=== PATIENT | female | born 1995 | race Caucasian/White ===

== ENCOUNTER → 2023-09-21 | Outpatient (CLI) | payer OTHER, SELFPAY ==
[2023-09-21 15:33] LABS: Vitamin B12 775 pg/mL (211-911)
[2023-09-26 14:10] LABS: VITAMIN B6 39.4 ug/L (3.4-65.2); Vitamin B1, Thiamine 130.2 nmol/L (66.5-200.0)
== END | disposition home or self-care (01) ==
PROVIDERS: PCP Nurse Practitioner Family; Referring Provider Nurse Practitioner Family; Visit Provider Nurse Practitioner Family
DX: E61.7 Deficiency of multiple nutrient elements (principal); R51.9 Headache, unspecified; G43.009 Migraine without aura, not intractable, without status migrainosus; R53.83 Other fatigue; E53.8 Deficiency of other specified B group vitamins
CPT/HCPCS: 36415; 82607; 82746; 84207; 84425

== ENCOUNTER 2025-01-18 17:37 | Outpatient (CLI) | payer OTHER, SELFPAY ==
--- OUTSIDE RECORDS SUMMARY | 2025-01-18 18:08 | XMS RPT_ITS | CCD ---
Author Organization [facility] Inform ion Partnership [facility] Care Team Providers Care Vibrator Equipment Tester Name Role Phone Migdalia Calderon LPN Unavailable Unavailable Migdalia Calderon LPN Unavailable Unavailable Angelique Walden NP Unavailable SYSTEM, PROVIDER NOT IN Primary Care UnavailSALOME Nayak Attending Unavail able [facility] Provider [place] [facility] [place] Primary Care Physician [facility] Primary [facility] Provider [facility] Provider LUKAS DARLING Attending Unavailable [facility] Primary Care Unavailable PRINCE RAYA Attending Unavailable [place] [facility] Unavail able VERN URBAN MD Attending Unavailable [facility] [place] [employer] [place] Attending Unavail able [facility] [facility] Unavail able [facility] Provider Margarita INSIDE SALES ENGINEER, Evie Hwang Referring Unavailabl e Margarita INSIDE SALES ENGINEER, Evie Hwang Attending Unavailabl e Margarita INSIDE SALES ENGINEER, Evie Hwang Primary Care Unavailabl e [place] [facility] [employer], [facility] Primary Care Provider CAMELIA HERRERA Attending Unavailable [facility] Unavailable LAURIE SERRA Referring Unavailable [facility] Care Unavailable LAURIE SERRA Attending Unavailable CAMELIA HERRERA Attending Unavailable [facility] Care Unavailable LAURIE SERRA Referring Unavailable LAURIE SERRA Attending Unavailable [facility] Primary Care Unavailable [facility] Primary Care Unavailable PLOTLARA, HODA Attending Unavailable RAJGURU, LAURIE J Attending Unavailable RAJGURU, LAURIE J Referring [facility] Care Unavailable [place] Primary Care Unavailable PLOTTS, HODA Attending Unavailable [facility] Primary Care Unavailable JODY, YASMEEN Referring Unavailable [place] Primary Care Unavailable JODY, YASMEEN Referring Unavailable PLOTTS, HODA Attending Unavailable [facility] Primary Care Unavailable [place] Primary Care Unavailable JODY, YASMEEN Attending Unavailable [place] Primary Care Unavailable JODY, YASMEEN Referring Unavailable [place] Primary Care Unavailable PLOTLARA, HODA Attending Unavailable CAMELIA HERRERA Attending Unavailable [place] [place] Primary Care Unavailable [place] Primary Care Unavailable CAMELIA HERRERA Attending Unavailable [place] Primary Care Unavailable CAMELIA HERRERA Attending Unavailable JODY, YASMEEN Referring Unavailable [place] Primary Care Unavailable NAOMI, HODA Attending Unavailable RAJGURU, LAURIE J Referring Unavailable RAJGURU, LAURIE J Attending Unavailable [facility] Primary Care Unavailable [place] Primary Care Unavailable PLOTLARA, HODA Attending Unavailable BRENNAN HEAD Attending Unavailable [facility] Primary Care Unavailable HAURY, BRENNAN Referring Unavailable [place] Primary Care Unavailable [place] Primary Care Unavailable HAURY, BRENNAN Referring Unavailable TOÑA BLANKENSHIP Attending Unavailable RAJGURU, LAURIE J Referring Unavailable [facility] Primary Care Unavailable RAJGURU, LAURIE J Attending Unavailable [facility] Primary Care Unavailable BRENNAN HEAD Attending Unavailable [facility] Primary Care Unavailable JODY, YASMEEN Referring Unavailable ROBYN VAZQUEZ DO Attending Unavailable [facility] Primary Care Unavailable Allergies Allergy Classification Reported Allergen(s) Allergy Type Date of Onset Reaction(s) Facility (7 sources) amoxicillin; Translations: [amoxicillin] drug allergy 09-27-19 17 rash [facility] Work Phone: (3 sources) morphine drug allergy 09-27-19 [facility] Work Phone: (3 sources) sulfamethoxazole / trimethoprim drug allergy 09-27-19 17 [facility] Work Phone: (20 sources) Morphine; Translations: [morphine] Drug Allergy 05-02-19 23 GI Upset, Nausea (finding) [facility] (20 sources) Erythromycin; Translations: [erythromycin] Drug Allergy 05-17-19 16 [facility] (20 sources) busPIRone; Translations: [BUSPIRONE] Drug Allergy 01-30-20 23 Mental Status Change, Mental distress (finding) [facility] (20 sources) Azithromycin; Translations: [AZITHROMYCIN] Drug Allergy 10-30-19 24 Rash, Hives, GI Upset [facility] (20 sources) cefTRIAXone; Translations: [CEFTRIAXONE] Drug Allergy 01-09-20 15 Other: See Comments [facility] (20 sources) Sulfamethoxazole / Trimethoprim; Translations: [SULFAMETHOXAZOLE-T RIMETHOPRIM] Drug Allergy 09-27-19 17 Rash [facility] (1 source) ERYTHROMYCIN BASE; Translations: [ERYTHROMYCIN BASE] Propensity to adverse reactions to drug (disorder) 05-17-19 16 [facility] [place] [facility] Medications Current Medications Medication Drug Class(es) Dates Sig (Normalized) Sig (Original) ALPRAZolam 1 mg oral tablet (20 sources) Benzodiazepine Start: 06-09-2022 End: 11-20-2022 ALPRAZolam 1 mg oral tablet PRN as needed for anxiety, 0 Refill(s), 69.7 Start Date: 06/09/22 Status: Ordered Medication Dispense Status: Completed Total Allowed Fills: 1 Fills Dispensed: 0 Start: 07-31-2011 End: 05-26-2022 ALPRAZolam (XANAX) 1 mg tabl et End: 05-26-2022 ALPRAZolam (XANAX) 0.5 mg ta blet Take by mouth. 0 05/26/2022 Discontinued (Course of therapy completed) XANAX 0.5 MG TAB S prn ALPRAZOLAM [id number] Migdalia Calderon LPN Comment on above: Take by mouth. Take by mouth as dir ected. aspirin 81 mg delayed release oral tablet (16 sources) Platelet Aggregation Inhibitor, Nonsteroidal Anti-inflammatory Drug Start: 07-18-2024 take 1 tablet by mouth once daily aspirin, enteric coated (ECOTRIN LOW STRENGTH) 81 mg EC tablet Indications: with uncertain dates in first trimester ([facility]) , care, first in first trimester (HCC) Take 1 tablet by mouth once daily. 90 tablet 3 07/18/2024 Active B Complex-C (b complex-vitamin c) tablet (4 sources) take 1 tablet by mouth once daily B Complex-C (b complex-vitamin c) tablet Take 1 tablet by mouth daily. 0 Active busPIRone (19 sources) Start: 11-19-2022 busPIRone (Buspar) tablet 15 mg Start: 08-23-2022 End: 11-21-2022 take 1 tablet by mouth twice daily busPIRone (BUSPAR) 15 mg tablet Take 1 tablet by mouth twice daily. 180 tablet 1 08/23/2022 11/21/2022 Discontinued (Side Effects) Start: 05-02-2020 busPIRone 10 m g oral tablet Dose : 10 mg = 1 tab(s), Oral, BID, # 270 tab(s), 3 Refill(s), Pharmacy: [facility], 168.5, cm, 10/06/20 7:31:00 EDT, Height, kg, 10/06/20 7:31:00 EDT, Dosing Weight Start Date: 10/06/20 Status: Ordered Comment on above: Take 1 tablet by bar twice daily. cholecalciferol, vitamin D3, (VITAMIN D3 ORAL) (20 sources) Start: 04-02-2022 cholecalciferol, vitamin D3, (VITAMIN D3 ORAL) 04/02/2022 Active Start: 04-02-2022 cholecalcifero l, vitamin D3, (VITAMIN D3 ORAL) escitalopram 20 mg oral tablet (20 sources) Serotonin Reuptake Inhibitor Start: 09-23-2024 End: 01-26-2025 take 1.5 tablets by mouth once daily escitalopram oxalate (LEXAPRO) 20 mg tablet Take 1.5 tablets by mouth once daily. 135 tablet 10/28/2024 01/26/2025 Active Start: 01-25-2024 End: 09-21-2024 take 1.5 tablets by mouth once daily escitalopram oxalate (LEXAPRO) 20 mg tablet Take 1.5 tablets by mouth once daily. 135 tablet 06/23/2024 09/21/2024 Active Start: 01-02-2023 End: 01-25-2024 take 2 tablets by mouth once daily escitalopram oxalate (LEXAPRO) 20 mg tablet Take 2 tablets by mouth once daily. 180 tablet 10/18/2023 01/25/2024 Discontinued Start: 12-15-2022 End: 02-13-2023 take 1.5 tablets by mouth once daily escitalopram oxalate (LEXAPRO) 20 mg tablet Take 1.5 tablets by mouth once daily. 45 tablet 1 12/15/2022 01/02/2023 Discontinued Start: 08-23-2022 End: 12-15-2022 take 1 tablet by mouth once daily escitalopram oxalate (LEXAPRO) 20 mg tablet Take 1 tablet by mouth once daily. 90 tablet 1 08/23/2022 12/15/2022 Discontinued Start: 06-19-2022 escitalopram 5 mg oral tablet Dose : 5 mg = 1 tab(s), Oral, qDay, # 30 tab(s), 0 Refill(s) Start Date: 06/19/22 Status: Ordered Start: 06-16-2022 End: 09-08-2022 take 1.5 tablets by mouth once daily escitalopram oxalate (LEXAPRO) 10 mg tablet Take 1.5 tablets by mouth once daily. 45 tablet 0 08/09/2022 09/08/2022 Active Start: 01-30-2021 End: 11-20-2022 escitalopram (Lexapro) table t 10 mg Comment on above: Take 10 mg by mouth once daily. Take 1.5 tablets by mouth once daily. Take 1 tablet by bar once daily. Take 2 tablets by mo [facility] once daily. hydrOXYzine hydrochloride 25 mg oral tablet (20 sources) Antihistamine Start: 10-18-19 End: 11-17-19 take 1 tablet by mouth every eight hours as needed hydrOXYzine HCl (ATARAX) 25 mg tablet Take 1 tablet by mouth three times a day as needed for anxiety (and sleep difficulties). 90 tablet 0 10/18/2023 11/17/2023 Active Start: 04-18-2023 End: 07-17-2023 take 1 tablet by mouth every twenty-four hours as needed hydrOXYzine HCl (ATARAX) 50 mg tablet Take 1 tablet by mouth at bedtime as needed for anxiety (and sleep difficulties). 90 tablet 0 04/18/2023 07/17/2023 Active Start: 02-05-2023 End: 03-07-2023 take 1 tablet by mouth every twenty-four hours as needed hydrOXYzine HCl (ATARAX) 50 mg tablet Take 1 tablet by mouth at bedtime as needed for anxiety (and sleep difficulties). 30 tablet 0 02/05/2023 03/07/2023 Active Start: 11-19-2022 End: 11-30-2022 take 1 capsule by mouth every six hours as needed hydrOXYzine pamoate (VISTARIL) 50 mg capsule Take 50 mg by mouth every 6 hours as needed. 0 11/20/2022 11/30/2022 Active Comment on above: Take 50 mg by mouth every 6 hours as needed. Take 1 tablet by bar th at bedtime as needed for anxiety (and sleep difficulties). Inositol (20 sources) Start: 04-29-2023 INOSITOL ORAL 04/29/2023 Active Start: 04-29-2023 INOSITOL ORAL Magnesium (4 sources) magnesium 500 MG tablet Take by mouth. 0 Active MAGNESIUM GLYCINATE, BULK, M ISC (20 sources) Start: 03-04-2023 MAGNESIUM GLYC INATE, BULK, MISC 03/04/2023 Active Start: 03-04-2023 MAGNESIUM GLYC INATE, BULK, MISC metroNIDAZOLE 500 mg oral tablet (1 source) Nitroimidazole Antimicrobial Start: 02-05-2024 End: 02-12-2024 take 1 tablet by mouth twice daily metroNIDAZOLE (FLAGYL) 500 mg tablet Take 1 tablet by mouth two times a day for 7 days. 14 tablet 02/05/2024 02/12/2024 Active nitrofurantoin, macrocrystals 25 mg / nitrofurantoin, monohydrate 75 mg oral capsule (3 sources) Nitrofuran Antibacterial Start: 05-07-2024 End: 05-14-2024 take 1 capsule by mouth twice daily nitrofurantoin monohydrate and macrocrystal (MACROBID) 100 mg capsule Indications: Dysuria Take 1 capsule by mouth two times a day for 7 days. 14 capsule 05/07/2024 05/14/2024 Active MV-Min-Fe Fum-FA-DHA ( 1 PO) (4 sources) MV-Min- Fe Fum-FA-DHA ( 1 PO) Take by mouth. 0 Active no115/iron/folic acid ( 19 ORAL) (16 sources) no115/iron/folic acid ( 19 ORAL) Take by mouth once daily. [place] Active Saccharomyces boulardii (20 sources) Start: 07-22-2023 SACCHAROMYCES BOULARDII ORAL 07/22/2023 Active Start: 07-22-2023 SACCHAROMYCES BOULARDII ORAL Completed/Discontinued Medications Medication Drug Class(es) Dates Sig (Normalized) Sig (Original) B-complex with vitamin C (SUPER B COMPLEX + C ORAL) (4 sources) Start: 04-02-2022 End: 10-18-2023 B-complex with vitamin C (SUPER B COMPLEX + C ORAL) Start: 04-02-2022 B-complex with vitamin C (SUPER B COMPLEX + C ORAL) cholecalciferol 0.125 mg oral capsule (20 sources) Vitamin D End: 06-22-2023 Cholecalciferol, Vitamin D3, 125 mcg (5,000 unit) cap Take by mouth as directed. 0 06/22/2023 Discontinued (Course of therapy completed) Cholecalciferol (Vitamin D) 125 MCG (5000 UT) capsule Take by mouth. 0 Active Comment on above: Take by mouth as dir ected. citalopram 20 mg oral tablet (6 sources) Serotonin Reuptake Inhibitor CELEXA 20 MG TABS q d CITALOPRAM HYDROBROMIDE [id number] Angelique Walden INSIDE SALES ENGINEER CELEXA TABS q d CITALOPRAM HYDROBROMIDE TABS [id number] Migdalia Calderon LPN compounded progesterone 100 mg capsule (8 sources) End: 10-08-2024 take 1 capsule under the tongue once daily at bedtime compounded progesterone 100 mg capsule 100 mg daily at bedtime. sublingual 10/08/2024 Discontinued (Course of therapy completed) take 1 capsule under the tongue once daily at bedtime compounded progesterone 100 mg capsule 1 00 mg daily at bedtime. sublingual Active cyclobenzaprine hydrochloride 10 mg oral tablet (20 sources) Muscle Relaxant Start: 05-02-2020 End: 07-18-2024 take 1 tablet by mouth once daily at bedtime cyclobenzaprine (FLEXERIL) 10 mg tablet Take 10 mg by mouth daily at bedtime. 05/02/2020 07/18/2024 Discontinued Comment on above: Take 10 mg by mouth daily at bedtime. docosahexaenoic acid/epa (FISH OIL ORAL) (8 sources) Start: 04-02-2022 End: 01-25-2024 docosahexaenoic acid/epa (FISH OIL ORAL) 04/02/2022 01/25/2024 Discontinued (Discontinued by Patient) Start: 04-02-2022 docosahexaenoi c acid/epa (FISH OIL ORAL) 04/02/2022 Active Start: 04-02-2022 docosahexaenoi c acid/epa (FISH OIL ORAL) Iron (17 sources) Start: 08-24-2022 End: 06-22-2023 take 1 capsule by mouth once daily PNV [id number] 90 mg iron- 1 mg-200 mg cap Indications: Irregular menstrual cycle Take 1 capsule by mouth once daily. 30 capsule 3 08/24/2022 06/22/2023 Discontinued (Course of therapy completed) Start: 08-24-2022 take 1 capsule by mo uth once daily PNV [id number]-dha 90 mg iron- 1 mg-200 mg cap Indications: Irregular menstrual cycle Take 1 capsule by mouth once daily. 30 capsule 3 08/24/2022 Active Comment on above: Take 1 capsule by mo uth once daily. LORazepam 0.5 mg oral tablet (20 sources) Benzodiazepine Start: End: take 1 tablet by mouth twice daily as needed for anxiety LORazepam (ATIVAN) 0.5 mg Indications: Other obsessive-compulsi ve disorders Take 1 tablet by mouth two times a day as needed (severe anxiety and panic attacks) for up to 30 days. 30 tablet 0 06/19/2023 07/19/2023 Start: 04-18-2023 End: 05-18-2023 take 1 tablet by mouth twice daily as needed for anxiety LORazepam (ATIVAN) 0.5 mg Indications: Other obsessive-compulsive disorders Take 1 tablet by mouth two times a day as needed (severe anxiety and panic attacks) for up to 30 days. 30 tablet 0 04/18/2023 05/18/2023 Active Start: 02-05-2023 End: 03-28-2023 take 1 tablet by mouth twice daily as needed for anxiety LORazepam (ATIVAN) 0.5 mg Indications: Other obsessive-compulsive disorders Take 1 tablet by mouth two times a day as needed (severe anxiety and panic attacks) for up to 30 days. 30 tablet 0 02/26/2023 03/28/2023 Active Start: 12-26-2022 End: 01-23-2023 take 1 tablet by mouth twice daily as needed for anxiety LORazepam (ATIVAN) 1 mg tablet Indications: FREDO (generalized anxiety disorder) Take 1 tablet by mouth two times a day as needed for anxiety (for intrusive thoughts) for up to 14 days. 14 tablet 0 01/09/2023 01/23/2023 Active Start: 12-15-2022 End: 12-29-2022 take 1 tablet by mouth at bedtime as needed for anxiety LORazepam (ATIVAN) 1 mg tablet Indications: FREDO (generalized anxiety disorder) Take 1 tablet by mouth at bedtime as needed for anxiety (for intrusive thoughts) for up to 14 days. 14 tablet 0 12/15/2022 12/29/2022 Active Start: 11-19-2022 End: 11-24-2022 LORazepam (Ativan) tablet 1 mg End: 02-05-2023 take 1 tablet by mouth every eight hours as needed LORazepam (ATIVAN) 1 mg tablet Take 1 mg by mouth three times a day as needed. 0 02/05/2023 Discontinued (Course of therapy completed) take 1 tablet by bar th every eight hours as needed for anxiety LORazepam (Ativan) 1 MG tablet Take 1 mg by mouth every 8 hours as needed for anxiety. 1-2 tabs Po q8 prn 0 Active Comment on above: Take 1 tablet by bar th at bedtime as needed for anxiety (for intrusive thoughts) for up to 14 days. Take 1 tablet by bar th twice daily as needed for anxiety (for intrusive thoughts) for up to 14 days. Take 1 tablet by bar th two times a day as needed for anxiety (for intrusive thoughts) for up to 14 days. Take 1 mg by mouth t hree times a day as needed. Take 1 tablet by bar th two times a day as needed (severe anxiety and panic attacks) for up to 30 days. magnesium glycinate 100 mg magnesium capsule (3 sources) End: 06-22-2023 magnesium glycinate 100 mg magnesium capsule Take 200 mg by mouth once daily. 0 06/22/2023 Discontinued (Course of therapy completed) magnesium glycin ate 100 mg magnesium capsule Take 200 mg by mouth once daily. 0 Active Comment on above: Take 200 mg by mouth once daily. [id number]-dyfrk-omega3 (ONE-A-DAY -1) 27 mg iron- 800 mcg-235 mg cap (6 sources) Start: 04-02-2022 End: 11-06-2023 490-avip-gpjgo-omega3 (ONE-A-DAY -1) 27 mg iron- 800 mcg-235 mg cap Start: 04-02-2022 168-i [id number] (ONE-A-DAY -1) 27 mg iron- 800 mcg-235 mg cap vit 03-ihuc-zzmov-dha (PRENATE MINI, FERR ASP GLYCIN,) 18-1-350 mg cap (5 sources) Start: 05-02-2022 take 1 capsule by mouth once daily vit 39-qjjr-kjkbw-dha (PRENATE MINI, FERR ASP GLYCIN,) 18-1-350 mg cap Take 1 capsule by mouth once daily. 30 capsule 11 05/02/2022 Active Comment on above: Take 1 capsule by mo uth once daily. progesterone 100 mg oral capsule (20 sources) Progesterone Start: 02-20-2023 End: 07-15-2024 take 3 capsules by mouth once daily progesterone micronized (PROMETRIUM) 100 mg capsule Take 3 capsules by mouth once daily. Used for mood. Progesterone - Compound 90 capsule 11 03/12/2024 07/15/2024 Discontinued (Discontinued by Patient) Start: 09-21-2022 End: 02-15-2023 take 3 capsules by mouth once daily progesterone micronized (PROMETRIUM) 100 mg capsule Take 3 capsules by mouth once daily. Used for mood. Progesterone - Compound 90 capsule 0 01/15/2023 02/15/2023 Discontinued Start: 06-30-2020 Progesterone P rogesterone, 200 mg, qDay, dissolve under tounge, 0 Refill(s), 73.9 Start Date: 06/30/20 Status: Ordered Comment on above: Take 3 capsules by m outh once daily. Used for mood. Progesterone - Compound propranolol hydrochloride 20 mg oral tablet (13 sources) beta-Adrenergic Stanislaw Start: 04-18-19 End: 06-19-19 take 1 tablet by mouth every eight hours as needed propranolol (INDERAL) 20 mg tablet Take 1 tablet by mouth three times a day as needed (intrusive thoughts and physical symptoms of anxiety). 90 tablet 0 04/18/2023 06/19/2023 Discontinued (Side Effects) Start: 12-26-2022 End: 03-28-2023 take 1 tablet by mouth every eight hours as needed propranolol (INDERAL) 20 mg tablet Take 1 tablet by mouth three times a day as needed (intrusive thoughts and physical symptoms of anxiety). 90 tablet 0 02/05/2023 02/26/2023 Discontinued Comment on above: Take 1 tablet by bar th three times daily as needed (intrusive thoughts and physical symptoms of anxiety). Take 1 tablet by bar th three times a day as needed (intrusive thoughts and physical symptoms of anxiety). vitamin B complex with C-FA-CU-ZN renal vitamins (DIATX ZN) 5-1.5-25 mg tab (17 sources) End: 07-15-2024 vitamin B complex with C-FA-CU-ZN renal vitamins (DIATX ZN) 5-1.5-25 mg tab Take 1 tablet by mouth once daily. 07/15/2024 Discontinued (Discontinued by Patient) vitamin B comple x with C-FA-CU-ZN renal vitamins (DIATX ZN) 5-1.5-25 mg tab Take 1 tablet by mouth once daily. Active vitamin B comple x with C-FA-CU-ZN renal vitamins (DIATX ZN) 5-1.5-25 mg tab Take 1 tablet by mouth once daily. 0 Active Problems Active Problems Problem Classification Problem Date Documented Date Episodic/Chronic Abdominal pain (3 sources) Right lower quadrant pain 06-09-2022 Episodic Adjustment disorders (1 source) Grieving process stage - finding; Translations: [Adjustment disorder with depressed mood] 11-20-2022 Chronic Anxiety disorders (20 sources) Mixed anxiety and depressive disorder; Translations: [Other specified anxiety disorders] Onset: 11-19-2022 Chronic Disorders of teeth and jaw (20 sources) Temporomandibular joint disorder; Translations: [Unspecified temporomandibular joint disorder, unspecified side] Onset: 01-21-2019 01-21-2019 Episodic Comment on above: otherwise active wit hout sig PMH LEFT Headache; including migraine (4 sources) Migraine 05-17-2015 Chronic Heart valve disorders (4 sources) Heart murmur 10-30-2018 Episodic Malaise and fatigue (6 sources) Malaise and fatigue; Translations: [Fatigue] Onset: 09-26-2016 10-08-2016 Episodic Menstrual disorders (12 sources) Disorder of menstruation; Translations: [Irregular periods] Onset: 10-08-2016 10-08-2016 Chronic Mood disorders (20 sources) Severe recurrent major depression without psychotic features; Translations: [Major depressive disorder, recurrent severe without psychotic features] Onset: 01-25-2024 11-20-2022 Chronic Nutritional deficiencies (1 source) Deficiency of multiple nutrient elements; Translations: [Deficiency of multiple nutrient elements] Onset: 10-12-2023 Episodic Other aftercare (5 sources) Long-term current use of drug therapy; Translations: [Other prison (current) drug therapy] 10-18-2023 Episodic Other complications of (1 source) Decreased movements, third trimester, not applicable or unspecified; Translations: [Decreased movements in third trimester, single or unspecified fetus (HCC)] Onset: 01-07-2025 Episodic Other connective tissue disease (1 source) Pelvic floor tension; Translations: [Other specified disorders of muscle] Episodic Other female genital disorders (1 source) Abnormal uterine bleeding; Translations: [Other specified abnormal uterine and vaginal bleeding] Chronic Other female genital disorders (1 source) Pain in female genitalia on intercourse; Translations: [Unspecified dyspareunia] Chronic Other female genital disorders (2 sources) Vaginal discharge; Translations: [Other specified noninflammatory disorders of vagina] 03-28-2024 Episodic Other female genital disorders (1 source) Vaginal odor; Translations: [Other specified noninflammatory disorders of vagina] 03-28-2024 Episodic Other non-traumatic joint disorders (4 sources) Hip pain 05-18-2015 Episodic Comment on above: Patient states fell last night and injured right hip. Other nutritional; endocrine; and metabolic disorders (5 sources) Metabolic syndrome X; Translations: [Metabolic syndrome] 06-19-2023 Chronic Other nutritional; endocrine; and metabolic disorders (1 source) Metabolic syndrome; Translations: [Metabolic syndrome] Onset: 01-25-2024 Chronic Other nutritional; endocrine; and metabolic disorders (3 sources) Overweight 10-30-2018 Episodic Other and delivery including normal (20 sources) with uncertain dates; Translations: [First trimester ] Onset: 07-18-2024 07-18-2024 Episodic Other screening for suspected conditions (not mental disorders or infectious disease) (7 sources) Decreased thyroxine level; Translations: [Other specified abnormal findings of blood chemistry] Onset: 11-26-2024 Episodic Other upper respiratory infections (1 source) Viral upper respiratory tract infection 04-06-2021 Episodic Residual codes; unclassified (4 sources) Reduced libido; Translations: [Decreased libido] Episodic Residual codes; unclassified (1 source) Gestation period, 8 weeks; Translations: [8 weeks gestation of ] 07-18-2024 Episodic Residual codes; unclassified (1 source) Gestation period, 12 weeks; Translations: [12 weeks gestation of ] 08-15-2024 Episodic Residual codes; unclassified (1 source) Gestation period, 16 weeks; Translations: [16 weeks gestation of ] 09-10-2024 Episodic Residual codes; unclassified (2 sources) Gestation period, 20 weeks; Translations: [20 weeks gestation of ] 10-08-2024 Episodic Residual codes; unclassified (1 source) Gestation period, 22 weeks; Translations: [22 weeks gestation of ] 10-22-2024 Episodic Residual codes; unclassified (1 source) Gestation period, 25 weeks; Translations: [25 weeks gestation of ] 11-12-2024 Episodic Residual codes; unclassified (1 source) Gestation period, 27 weeks; Translations: [27 weeks gestation of ] 11-26-2024 Episodic Residual codes; unclassified (1 source) Gestation period, 29 weeks; Translations: [29 weeks gestation of ] 12-10-2024 Episodic Residual codes; unclassified (1 source) 33 weeks gestation of ; Translations: [33 weeks gestation of (HCC)] Onset: 01-07-2025 Episodic Residual codes; unclassified (1 source) 31 weeks gestation of ; Translations: [31 weeks gestation of (HCC)] Onset: 12-24-2024 Episodic Residual codes; unclassified (1 source) 29 weeks gestation of ; Translations: [29 weeks gestation of (HCC)] Onset: 12-10-2024 Episodic Residual codes; unclassified (1 source) 27 weeks gestation of ; Translations: [27 weeks gestation of (HCC)] Onset: 11-26-2024 Episodic Residual codes; unclassified (1 source) 24 weeks gestation of ; Translations: [24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 CNOV Office Visit (OBGYWM) -------- SMITA NGUYEN ([id number]) 1995 F Date Time Provider Department 11/26/24 2:30 PM HODA HAGER During your visit today, we recorded the following information about you: Blood pressure Weight 106/60 84.9 kg Hoda Hager APRN.CNM 11/26/2024 3:15 PM Signed CENTERING S: Smita Nguyen is a 29 year old female who presents at 27 weeks gestation for a routinve visit / centering group. Positive movements. Completed GCT. Denies headache, visual changes, chest pain, shortness of breath, vaginal bleeding, leakage of fluid, or dysuria. Feeling well, no complaints. Leaving for vacation next week in [place]. O: See flow sheet Gen: No apparent distress Abd: Gravid, nontender ASSESSMENT/PLAN: 1. 27 weeks gestation of 2. Supervision of normal first , antepartum 3. Other depression 4. History of depression - Continue Lexapro 20 mg PO Daily - Continue vitamin and ASA - Traveling via plane to [place] next week- wearing compression stockings and increase fluid intake - Follows psych. - mood stable - 1 hour GCT, CBC, and RPR today - Rh positive - TDAP declines - LARC form reviewed and signed. Patient declines - Depression screen negative - Opioid screen negative - plan form discussed and given to patient. Patient desires unmedicated - possible water - PTL precautions and kick counts reviewed - RTO- 2 weeks or sooner if needed ADELFO Yeung Amanda, MA 11/26/2024 2:38 PM Signed SEQUENTIAL SCREENINGS [facility] offers sequential screenings for women who are interested in screenings for chromosomal abnormalities and certain defects during a . The sequential screen combines ultrasound and blood tests to determine the risk of chromosomal abnormalities, including Down's Syndrome (Trisomy 21) and Trisomy 18, as well as open neural tube defects including spina bifida. Ultrasound examination is performed between 11 weeks and 13 weeks gestational age. Blood tests are drawn after the ultrasound and again later in the between 15 and 21 weeks gestational age. Please let your physician know if you are interested in this testing. It will require an appointment with our special effects technician. This is not an ultrasound performed by a physician in our office during a routine visit. SIGNS AND SYMPTOMS OF LABOR 1. Contractions every 10 minutes or more often 2. Clear, pink, or brownish fluid (water) leaking from vagina 3. Feeling that baby is pushing down, pressure 4. Low, dull backache 5. Cramps that feel like a period 6. Cramps with or without diarrhea If you notice any of the above symptoms, contact our office at [phone] and ask to speak with a nurse. After hours, you can call doctors registry at [phone] OR call [facility] at [phone] and ask to have the doctor blown film extrusion operator paged. If you consider this an emergency, dial 6-1-8 or go to your nearest emergency department. NEED HELP? Are you dealing with a violent or abusive relationship? Are you a victim of rape or sexual assult? Call [facility] ([place]) 24 hour Crisis Hotline: 369.849.9186 or 480-669-8249. MANUAL Your Guide to a Healthy manual is now on-line. Visit [facility].or g/HealthyPregnancy Guide to download your free copy Allergies As of Date: 11/26/2024 Noted Allergy Reaction SULFAMETHOXAZOLE-T RIMETHOPRIM 09/26/2016 2 - Rash AZITHROMYCIN 10/30/2023 2 - Rash 4 - Hives 8 - GI Upset BUSPIRONE 01/29/2023 1 - Mental Status Change CEFTRIAXONE 01/08/2015 14 - Other: See Comments ERYTHROMYCIN BASE 05/17/2015 2 - Rash MORPHINE 05/02/2022 8 - GI Upset Date Reviewed: 11/26/2024 Reviewed by: Marce Bello MA - Fully Assessed Reason for Visit: Care [86] Primary Visit Diagnosis:27 weeks gestation of (HCC) [Z3A.27] Other Visit Diagnoses:Supervis ion of normal first , antepartum (HCC) [Z34.00] Other depression [F32.89] History of depression [Z86.59] Prescriptions as of 11/26/2024 - escitalopram oxalate (LEXAPRO) 20 mg tablet Take 1.5 tablets by mouth once daily. - aspirin, enteric coated (ECOTRIN LOW STRENGTH) 81 mg EC tablet Take 1 tablet by mouth once daily. - no115/iron/folic acid ( 19 ORAL) Take by mouth once daily. [place] - SACCHAROMYCES BOULARDII ORAL - INOSITOL ORAL - cholecalciferol, vitamin D3, (VITAMIN D3 ORAL) - MAGNESIUM GLYCINATE, BULK, MISC Problem List As Of Date 11/26/2024 Noted Resolved TMJ (temporomandibular joint syndrome) [M26.609] 9 Supervision of normal first , antepart* 5 History of Lyme disease [Z86.19] 08/15/2024 Depression [F32.A] Other instructions from your clinician: SEQUENTIAL SCREENINGS [facility] off (more content not included)... Normal [facility] GESTATIONAL GLUCOSE SCREEN, 1-HOUR, 50 GRAM, NON-FASTINGon 11-26-2024 Glucose [Mass/Vol] 92 mg/dL Normal 74-134 [facility] Comment on above: Order Comment: Speci stephy Type: BLOOD SPECIMENOrdering Facility: [facility] Address: [address] [place] [address] Result Comment: [facility] Congress of Obstetricians and Gynecologists (Rock/Corey) guidelines state a gestational diabetes mellitus positive screen is made, in women not previously diagnosed with overt diabetes, when the 1 hr plasma glucose level is equal to or above 140 mg/dL. [facility] Showplace Manager and [employer] [employer] recommends a 135 mg/dL cutoff. Performed By: #### G LTGST ####[facility] [id number] [place] [address] [place] Reagin and Treponema pallidu m IgG and IgM [Interp]on 11-26-2024 T. pallidum IgG+IgM IA Ql (S) Non-Reactive Normal Nonreactive [facility] Comment on above: Order Comment: Nicole keyes Type: SWAB Ordering Facility: [facility] Address: [address] [place] [address] Performed By: #### T RVAMP, 04155-5 #### [facility] CLIA [id number] [address] [place], [place] [id number] [place] Reagin+T pallidum IgG+IgM Se rPl-Impon 11-26-2024 Reagin and Treponema pallidum IgG and IgM [Interp] Cannot exclude recent Treponemal infection if specimen collected within 7-10 days after appearance of suspect lesions or 2-3 weeks after an exposure. Clinical correlation is required. Normal [facility] Comment on above: Order Comment: Speci men Type: SWAB Ordering Facility: [facility] Address: [address] [place] [address] Performed By: #### T RVAMP, 33254-0 #### [facility] CLIA [id number] [address] [place] [address] [place] CNPJackeline 11-20-2024 CNPN Telephone (OBGYWM) -------- SMITA NGUYEN ([id number]) 1995 F Date Time Provider Department 11/20/24 CAMELIA HERRERA During your visit today, we recorded the following information about you: Glendy Castaneda LPN 11/20/2024 5:17 PM Signed Breast pump prescription received from [facility]. Order to Mario Alberto Herrera to sign Mora Villarreal RN 11/24/2024 4:25 PM Signed Order signed and faxed. Mora Villarreal RN Allergies As of Date: 11/20/2024 Noted Allergy Reaction SULFAMETHOXAZOLE-T RIMETHOPRIM 09/26/2016 2 - Rash AZITHROMYCIN 10/30/2023 2 - Rash 4 - Hives 8 - GI Upset BUSPIRONE 01/29/2023 1 - Mental Status Change CEFTRIAXONE 01/08/2015 14 - Other: See Comments ERYTHROMYCIN BASE 05/17/2015 2 - Rash MORPHINE 05/02/2022 8 - GI Upset Date Reviewed: 11/12/2024 Reviewed by: Camelia Herrera APRN.CNM - Fully Assessed Reason for Visit: Orders [681] Cmt: Breast pump Prescriptions as of 11/24/2024 - escitalopram oxalate (LEXAPRO) 20 mg tablet Take 1.5 tablets by mouth once daily. - aspirin, enteric coated (ECOTRIN LOW STRENGTH) 81 mg EC tablet Take 1 tablet by mouth once daily. - no115/iron/folic acid ( 19 ORAL) Take by mouth once daily. [place] - SACCHAROMYCES BOULARDII ORAL - INOSITOL ORAL - cholecalciferol, vitamin D3, (VITAMIN D3 ORAL) - MAGNESIUM GLYCINATE, BULK, MISC Problem List As Of Date 11/20/2024 Noted Resolved TMJ (temporomandibular joint syndrome) [M26.609] 9 Supervision of normal first , antepart* History of Lyme disease [Z86.19] 08/15/2024 Depression [F32.A] Encounter Status:Closed by MORA VILLARREAL on 11/24/24 [facility] CNOVon 11-12-2024 CNOV Office Visit (OBGYWM) -------- SMITA NGUYEN ([id number]) 1995 F Date Time Provider Department 11/12/24 2:30 PM CAMELIA HERRERA OBELLE During your visit today, we recorded the following information about you: Blood pressure Weight 128/78 83.5 kg Camelia Herrera APRN.CNM 11/12/2024 4:59 PM Signed ESAU-S: Smita Nguyen is a 29 year old female who presents at 25w3d with ENE:02/22/2025, by Last Menstrual Period for a routine visit. Denies headache, visual changes, chest pain, shortness of breath, vaginal bleeding, leakage of fluid, or dysuria. Feeling well, no complaints. O: See flow sheet Gen: No apparent distress Abd: Gravid, nontender ASSESSMENT/PLAN: 1. Supervision of normal first , antepartum -Continue PNV -Continue ASA 2. Other depression 3. 25 weeks gestation of -1hr GCT, CBC, and RPR next visit -Tdap vaccine next visit PTL precautions reviewed and when to call RTO in 2 week ADELFO Puri Jessica, APRN.CNM 11/12/2024 2:53 PM Signed 50 gram fresh test 1 HOUR GLUCOLA TEST PREPARATION, EXPLANATION AND INSTRUCTIONS The test is performed to detect gestational diabetes mellitus. Some women, when they become , will develop this condition. If left untreated or undetected, diabetes may lead to problems with both your health and your baby's. All OB patients must have the 1 hour Glucola testing between 24 and 28 weeks. Patient is permitted to eat 2 hours prior to Glucola testing. Patient is to arrive at her appointment prepared to drink 50gms of glucose beverage. Blood will be drawn 1 hour after Glucola is consumed. No food, candy, gum, beverages or water may be consumed during the test. No smoking during testing!! Testing is complete after blood is drawn. Allergies As of Date: 11/12/2024 Noted Allergy Reaction SULFAMETHOXAZOLE-T RIMETHOPRIM 09/26/2016 2 - Rash AZITHROMYCIN 10/30/2023 2 - Rash 4 - Hives 8 - GI Upset BUSPIRONE 01/29/2023 1 - Mental Status Change CEFTRIAXONE 01/08/2015 14 - Other: See Comments ERYTHROMYCIN BASE 05/17/2015 2 - Rash MORPHINE 05/02/2022 8 - GI Upset Date Reviewed: 11/12/2024 Reviewed by: Camelia Herrera APRN.CNM - Fully Assessed Reason for Visit: Care [86] Primary Visit Diagnosis:Supervis ion of normal first , antepartum (HCC) [Z34.00] Other Visit Diagnoses:25 weeks gestation of ([facility]) [Z3A.25] Other depression [F32.89] Prescriptions as of 11/12/2024 - escitalopram oxalate (LEXAPRO) 20 mg tablet Take 1.5 tablets by mouth once daily. - aspirin, enteric coated (ECOTRIN LOW STRENGTH) 81 mg EC tablet Take 1 tablet by mouth once daily. - no115/iron/folic acid ( 19 ORAL) Take by mouth once daily. [place] - LEVAR JOSEFRANCOISRAYMONDGabriella ORAL - INOSITOL ORAL - cholecalciferol, vitamin D3, (VITAMIN D3 ORAL) - MAGNESIUM GLYCINATE, BULK, MISC Problem List As Of Date 11/12/2024 Noted Resolved TMJ (temporomandibular joint syndrome) [M26.609] 9 Supervision of normal first , antepart* 5 History of Lyme disease [Z86.19] 08/15/2024 Depression [F32.A] Other instructions from your clinician: 50 gram fresh test 1 HOUR GLUCOLA TEST PREPARATION, EXPLANATION AND INSTRUCTIONS The test is performed to detect gestational diabetes mellitus. Some women, when they become , will develop this condition. If left untreated or undetected, diabetes may lead to problems with both your health and your baby's. All OB patients must have the 1 hour Glucola testing between 24 and 28 weeks. Patient is permitted to eat 2 hours prior to Glucola testing. Patient is to arrive at her appointment prepared to drink 50gms of glucose beverage. Blood will be drawn 1 hour after Glucola is consumed. No food, candy, gum, beverages or water may be consumed during the test. No smoking during testing!! Testing is complete after blood is drawn. Encounter Status:Closed by CAMELIA HERRERA on 11/12/24 [facility] CNOVon 10-28-2024 CNOV Office Visit (PSWSTR) -------- SMITA NGUYEN ([id number]) 1995 F Date Time Provider Department 10/28/24 11:30 AM LAURIE SERRA PSWSTR During your visit today, we recorded the following information about you: Pulse Blood pressure Weight 70/minute 113/66 81.2 kg Laurie Serra, SANDER [employer]ENC[employer].STONE BELT SANDER 10/28/2024 11:01 PM Signed FOLLOW UP - PSYCHIATRIC PROGRESS NOTE Visit Type:In person Recording using ambient [employer] software for draft documentation of the visit was discussed with the patient/authorized junior sales representative; all questions welcomed and answered. Patient/authorized junior sales representative agreed to proceed CC: Outpatient follow-up and safety monitoring of previously prescribed psychiatric medication, psychotherapy or other treatment HPI: Patient is a 29-year-old female with a history of anxiety, currently 23 weeks , presenting for follow-up. Patient reports feeling the best she has since 2011, describing her mental state as phenomenal. She attributes this improvement to her current medication regimen, which includes Lexapro 30 mg and inositol. She discontinued progesterone due to recommendations from her midwives at [facility]. She has not needed to use hydroxyzine or Ativan recently but keeps Ativan as a safety net, carrying 1-2 pills with her and keeping the rest at home. She is planning a water at [facility] and is open to alternative delivery methods if necessary. She expresses a desire to be closely monitored due to her current well-being and the potential for anxiety. Patient continues to engage in regular physical activity, attending the gym 4-6 days a week, which she finds beneficial for her mental health. She reports no significant physical health issues, though she experienced fatigue and all-day nausea without vomiting during the first trimester. Her sleep is so-so, but she is not taking any medication for it and denies experiencing vivid dreams or nightmares. 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 She is preparing for the arrival of her baby, cleaning and organizing the nursery, and engaging in nesting behaviors. She is also reading extensively about vaccines to make informed decisions for her child. Her is described as ridiculously laid back and supportive, with experience around children through his nieces and nephews. She mentions a difficult night in April when she learned of her brother and csnctr-au-cqn's , but she became herself in May, which brought relief. She continues to see her psychologist once a month, engaging in cognitive behavioral therapy and mindfulness practices. She plans to increase the frequency of her therapy sessions if needed . Risks and benefits of the medication, including any black box warnings, were discussed with the patient. Interval Progress: Improved PATIENT DATA: Generalized Anxiety Disorder Scale (FREDO-7) 03/04/2024 06/23/2024 10/27/2024 FREDO - 7 SCORES Score 8 12 12 7 (0-4) minimal anxiety, (5-9) mild anxiety, (10-14) moderate anxiety, (15-21) severe anxiety Patient Health Questionnaire (PHQ-9) 03/04/2024 06/23/2024 10/27/2024 PHQ-9 Score 11 11 11 1 (0-4) minimal depression, (5-9) mild depression, (10-14) moderate depression, (15-19) moderately severe depression, (20-27) severe depression PROMIS Global Health 06/23/2024 10/01/2024 10/27/2024 PROMIS Global Health - (T-Scores - the mean of general population = 50. 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 90 tablet 3 no115/iron/folic acid ( 19 ORAL) Take by mouth once daily. [place] SACCHAROMYCES BOULARDII ORAL INOSITOL ORAL cholecalciferol, vitamin D3, (VITAMIN D3 ORAL) MAGNESIUM GLYCINATE, BULK, MISC escitalopram oxalate (LEXAPRO) 20 mg tablet Take 1.5 tablets by mouth once daily. 135 tablet 0 No current facility-administe red medications for this visit. ROS: See HPI PFSH: See HPI VITAL SIGNS: 10/28/24 1113 BP: 113/66 Pulse: 70 SpO2: 98% Weight: 81.2 kg (179 lb) MENTAL STATUS EXAM: Mental Status Exam General/Sensorium: Alert Orientation: AAOx3 Appearance: Appears well groomed and stated age and casually dressed Eye contact: Appropriate Demeanor: Appropria (more content not included)... Normal [facility] CNOVon 10-22-2024 CNOV Office Visit (OBGYWM) -------- SMITA NGUYEN ([id number]) 1995 F Date Time Provider Department 10/22/24 2:30 PM HODA HAGER OBSUJITWRobert During your visit today, we recorded the following information about you: Blood pressure Weight 100/60 80.9 kg Hoda Hager APRN.CNM 10/22/2024 3:54 PM Signed CP- CENTERING S: Smita Nguyen is a 29 year old female who presents at 22 weeks gestation for a routine visit/centering group. Not feeling movements to date which causes anxiety. Anterior placenta. Continues to work out and reports feeling the best she has in a long time. Reports mood elevated and feels great physically. Denies headache, visual changes, chest pain, shortness of breath, vaginal bleeding, leakage of fluid, or dysuria. Feeling well, no complaints. O: See flow sheet Gen: No apparent distress Abd: Gravid, nontender ASSESSMENT/PLAN 1. Supervision of normal first 2. 22 weeks gestation of 3. Other depression - Continue Lexapro 20 mg PO Daily - Continues to speak with counselor and seeing psych for medication regulation - vitamin/ ASA daily - RTO 4 weeks or sooner if needed ADELFO Yeung Amanda, MA 10/22/2024 2:35 PM Signed SEQUENTIAL SCREENINGS [facility] offers sequential screenings for women who are interested in screenings for chromosomal abnormalities and certain defects during a . The sequential screen combines ultrasound and blood tests to determine the risk of chromosomal abnormalities, including Down's Syndrome (Trisomy 21) and Trisomy 18, as well as open neural tube defects including spina bifida. Ultrasound examination is performed between 11 weeks and 13 weeks gestational age. Blood tests are drawn after the ultrasound and again later in the between 15 and 21 weeks gestational age. Please let your physician know if you are interested in this testing. It will require an appointment with our special effects technician. This is not an ultrasound performed by a physician in our office during a routine visit. SIGNS AND SYMPTOMS OF LABOR 1. Contractions every 10 minutes or more often 2. Clear, pink, or brownish fluid (water) leaking from vagina 3. Feeling that baby is pushing down, pressure 4. Low, dull backache 5. Cramps that feel like a period 6. Cramps with or without diarrhea If you notice any of the above symptoms, contact our office at [phone] and ask to speak with a nurse. After hours, you can call doctors registry at [phone] OR call [facility] at [phone] and ask to have the doctor blown film extrusion operator paged. If you consider this an emergency, dial 1-0-4 or go to your nearest emergency department. NEED HELP? Are you dealing with a violent or abusive relationship? Are you a victim of rape or sexual assult? Call [facility] ([place]) 24 hour Crisis Hotline: 838.206.4736 or 231-655-9573. MANUAL Your Guide to a Healthy manual is now on-line. Visit [facility].or /HealthyPregnancy Guide to download your free copy Allergies As of Date: 10/22/2024 Noted Allergy Reaction SULFAMETHOXAZOLE-T RIMETHOPRIM 09/26/2016 2 - Rash AZITHROMYCIN 10/30/2023 2 - Rash 4 - Hives 8 - GI Upset BUSPIRONE 01/29/2023 1 - Mental Status Change CEFTRIAXONE 01/08/2015 14 - Other: See Comments ERYTHROMYCIN BASE 05/17/2015 2 - Rash MORPHINE 05/02/2022 8 - GI Upset Date Reviewed: 10/22/2024 Reviewed by: Marce Bello MA - Fully Assessed Reason for Visit: Care [86] Primary Visit Diagnosis:Supervis ion of normal first , antepartum (HCC) [Z34.00] Other Visit Diagnoses:22 weeks gestation of (HCC) [Z3A.22] Other depression [F32.89] Prescriptions as of 10/22/2024 - escitalopram oxalate (LEXAPRO) 20 mg tablet Take 1.5 tablets by mouth once daily. - aspirin, enteric coated (ECOTRIN LOW STRENGTH) 81 mg EC tablet Take 1 tablet by mouth once daily. - no115/iron/folic acid ( 19 ORAL) Take by mouth once daily. [place] [facility] - LEVAR CLARENCE ORAL - INOSITOL ORAL - cholecalciferol, vitamin D3, (VITAMIN D3 ORAL) - MAGNESIUM GLYCINATE, BULK, MISC Problem List As Of Date 10/22/2024 Noted Resolved TMJ (temporomandibular joint syndrome) [M26.609] 9 Supervision of normal first , antepart* 5 History of Lyme disease [Z86.19] 08/15/2024 Depression [F32.A] Other instructions from your clinician: SEQUENTIAL SCREENINGS [facility] offers sequential screenings for women who are interested in screenings for chromosomal abnormalities and certain defects during a . The sequential screen combines ultrasound and blood tests to determine the risk of chromosomal abnormalities, including Down's Syndrome (Trisomy 21) and Trisomy 18, as well as open neural tube defe (more content not included)... Normal [facility] Examination level ultrasound on 10-08-2024 Indication Standard anatomic survey Impression The patient is referred for a standard anatomic survey. - Single, live, intrauterine . - biometry is consistent with the established gestational age. - No malformations were visualized on a complete standard anatomic survey. - The amniotic fluid volume is normal amount. - The placenta is anterior, fundal. - The Transabdominal cervical length measures 32.1 mm with no evidence of funneling or other dynamic changes. - Not all structural malformations can be detected by ultrasound examination. Recommendations Additional follow-up as clinically indicated. Maternal Assessment Height 168 cm Height (ft) 5 ft Height (in) 6 in Physical Exam Initial weight (lb) 170 lb Initial BMI 27.44 kg/m Maternal assessment other: 1 Para 0 REMOTE READ Method Transabdominal ultrasound examination. View: Adequate visualization Dooley . Number of fetuses: 1 Dating LMP on: 05/18/2024 GA by LMP 20 w + 3 d ENE by LMP: 02/22/2025 GA by prior assessment 20 w + 3 d ENE by prior assessment: 02/22/2025 Ultrasound examination on: 10/08/2024 GA by U/S based upon: AC, BPD, Femur, HC GA by U/S 19 w + 6 d ENE by U/S: 02/26/2025 Assigned: based on stated ENE, selected on 10/08/2024 Assigned GA 20 w + 3 d Assigned ENE: 02/22/2025 General Evaluation Cardiac activity present. FHR 141 bpm. movements: present. Presentation: cephalic Placenta: Placental site: anterior, fundal Umbilical cord: Cord vessels: 3 vessel cord Amniotic fluid: Amount of AF: normal amount. MVP 4.3 cm Growth Overview Exam date GA BPD (mm) HC (mm) AC (mm) FL (mm) HL (mm) EFW (g) 10/08/2024 20w 3d 45.3 21% 171.9 29% 145.4 25% 31.2 36% 28.3 11% 310 15% Biometry Standard BPD 45.3 mm 19w 5d 21% Hadlock OFD 61.2 mm 19w 6d 38% Nicolaides HC 171.9 mm 19w 5d 29% Neo Cerebellum tr 20.4 mm 19w 4d 38% Hill Nuchal fold 5.6 mm AC 145.4 mm 19w 6d 25% Hadlock Femur 31.2 mm 19w 6d 36% Neo Humerus 28.3 mm 19w 1d 11% Neo EFW 310 g 19w 4d 15% Hadlock EFW (lb) 0 lb EFW (oz) 11 oz EFW by: Hadlock (HC-AC-FL) Extended Senior Sql Database Developer 7.0 mm CM 3.9 mm 15% Nicolaides Extremities / Bony Struc FL / HC 0.18 19% Hadlock Other Structures FHR 141 bpm Anatomy Cranium: normal Lateral ventricles: normal Choroid plexus: normal Midline falx: normal Cavum septi pellucidi: normal Cerebellum: normal Cisterna magna: normal Head / Neck Vermis: Normal but not required for a standard anatomy exam Neck: Normal but not required for a standard anatomy exam Nuchal fold: Normal but not required for a standard anatomy exam Lips: normal Profile: Normal but not required for a standard anatomy exam Nose: Normal but not required for a standard anatomy exam Face Maxilla: Normal but not required for a standard anatomy exam Mandible: Normal but not required for a standard anatomy exam Orbits: Normal but not required for a standard anatomy exam Lens: Normal but not required for a standard anatomy exam 4-chamber view: normal RVOT view: normal LVOT view: normal 3-vessel view: normal 7-meieyg-ymzlrpd view: normal Heart / Thorax Situs: situs solitus (normal) Aortic arch view: Normal but not required for a standard anatomy exam SVC: Normal but not required for a standard anatomy exam IVC: Normal but not required for a standard anatomy exam Cardiac axis: normal Rt lung: Normal but not required for a standard anatomy exam Lt lung: Normal but not required for a standard anatomy exam Diaphragm: normal Cord insertion: normal Stomach: normal Kidneys: normal Bladder: normal Genitals: normal Abdomen Abdom. wall: normal Cervical spine: normal Thoracic spine: normal Lumbar spine: normal Sacral spine: normal Arms: normal Legs: normal Rt upper arm: normal Rt forearm: normal Rt hand: normal Rt fingers: normal Lt upper arm: normal Lt forearm: normal Lt hand: normal Lt fingers: normal Rt upper leg: normal Rt lower leg: normal Rt foot: normal Lt upper leg: normal Lt lower leg: normal Lt foot: normal Gender: Unspecified Wants to know sex: no Maternal Structures Uterus / Cervix Uterus: Visualized Cervix: Visualized Approach: Transabdominal Cervical length 32.1 mm Other: Patient declined transvaginal ultrasound for cervical length. Ovaries / Tubes / Adnexa Rt ovary: Not visualized Lt ovary: Visualized Performed By: Pratima Reeves RDMS, RVT Read By: Dionne Pearson M.D. MATERNAL MEDICINE [facility] Radiology Study observation (narrative) [facility] CARRIER SCREEN, STANDARDon 0 08-15-2024 CARRIER SCREEN RESULTS View results in Scanned Documents link when available. Normal [facility] Comment on above: Order Comment: Speci men Type: BLOOD SPECIMENOrdering Facility: [facility] Address: [address] [place] [address] Performed By: #### C RRSCN ####MYRIADCLIA [id number] [place] [address] CBC W Auto Differential pane l (Bld)on 08-15-2024 Basophils (Bld) [#/Vol] 0.04 10*3/uL Normal <0.11 [facility] Comment on above: Order Comment: Speci men Type: BLOOD SPECIMENOrdering Facility: [facility] Address: [address] [place] [address] Performed By: #### 5 7021-8 ####[facility] MILLWNCLIA [id number] [place] [address] [place] Basophils/100 WBC (Bld) 0.4 % Normal [facility] Comment on above: Order Comment: Speci men Type: BLOOD SPECIMENOrdering Facility: [facility] Address: [address] [place] [address] Performed By: #### 5 7021-8 ####[facility] [id number] [place] [address] [place] Differential cell count method Nom (Bld) Auto Normal [facility] Comment on above: Order Comment: Speci men Type: BLOOD SPECIMENOrdering Facility: [facility] Address: [address] [place] [address] Performed By: #### 5 7021-8 ####[facility] [id number] [place] [address] [place] Eosinophils (Bld) [#/Vol] 0.07 10*3/uL Normal <0.46 [facility] Comment on above: Order Comment: Speci men Type: BLOOD SPECIMENOrdering Facility: [facility] Address: [address] [place] [address] Performed By: #### 5 7021-8 ####[facility] [id number] [address] [place] Eosinophils/100 WBC (Bld) 0.7 % Normal [facility] Comment on above: Order Comment: Speci men Type: BLOOD SPECIMENOrdering Facility: [facility] Address: [address] [place] [address] Performed By: #### 5 7021-8 ####[facility] HOSPITALNCA [id number] [place] [address] [place] Erythrocyte distribution width (RBC) [Ratio] 12.4 % Normal 11.5-15.0 [facility] Comment on above: Order Comment: Speci men Type: BLOOD SPECIMENOrdering Facility: [facility] Address: [address] [place] [address] Performed By: #### 5 7021-8 ####[facility] [id number] [place] [address] [place] Hematocrit (Bld) [Volume fraction] 37.2 % Normal 36.0-46.0 [facility] Comment on above: Order Comment: Speci men Type: BLOOD SPECIMENOrdering Facility: [facility] Address: [address] [place] [address] Performed By: #### 5 7021-8 ####[facility] [id number] [place] [address] [place] Hemoglobin (Bld) [Mass/Vol] 13.1 g/dL Normal 11.5-15.5 [facility] Comment on above: Order Comment: Speci men Type: BLOOD SPECIMENOrdering Facility: [facility] Address: [address] [place] [address] Performed By: #### 5 7021-8 ####[facility] [id number] [place] [address] [place] Immature granulocytes (Bld) [#/Vol] 0.05 10*3/uL Normal <0.10 [facility] Comment on above: Order Comment: Speci men Type: BLOOD SPECIMENOrdering Facility: [facility] Address: [address] [place] [address] Performed By: #### 5 7021-8 ####[facility] [id number] [place] [address] [place] Immature granulocytes/100 WBC (Bld) 0.5 % Normal [facility] Comment on above: Order Comment: Speci men Type: BLOOD SPECIMENOrdering Facility: [facility] Address: [address] [place] [address] Performed By: #### 5 7021-8 ####[facility] [id number] [place] [address] [place] Lymphocytes (Bld) [#/Vol] 2.32 10*3/uL Normal 1.00-4.00 [facility] Comment on above: Order Comment: Speci men Type: BLOOD SPECIMENOrdering Facility: [facility] Address: [address] [place] [address] Performed By: #### 5 7021-8 ####[facility] [id number] [place] [address] [place] Lymphocytes/100 WBC (Bld) 24.8 % Normal [facility] Comment on above: Order Comment: Speci men Type: BLOOD SPECIMENOrdering Facility: [facility] Address: [address] [place] [address] Performed By: #### 5 7021-8 ####[facility] [id number] [place] [address] [place] MCH (RBC) [Entitic mass] 31.4 pg Normal 26.0-34.0 [facility] Comment on above: Order Comment: Speci men Type: BLOOD SPECIMENOrdering Facility: [facility] Address: [address] [place] [address] Performed By: #### 5 7021-8 ####[facility] [id number] [place] [address] [place] MCHC (RBC) [Mass/Vol] 35.2 g/dL Normal 30.5-36.0 [facility] Comment on above: Order Comment: Speci men Type: BLOOD SPECIMENOrdering Facility: [facility] Address: [address] [place] [address] Performed By: #### 5 7021-8 ####[facility]ITALNCLIA [id number] [place] [address] [place] MCV (RBC) [Entitic vol] 89.2 fL Normal 80.0-100.0 [facility] Comment on above: Order Comment: Speci men Type: BLOOD SPECIMENOrdering Facility: [facility] Address: [address] [place] [address] Performed By: #### 5 7021-8 ####[facility]OSPITALCORINEA [id number] [place] [address] [place] Monocytes (Bld) [#/Vol] 0.55 10*3/uL Normal <0.87 [facility] Comment on above: Order Comment: Speci men Type: BLOOD SPECIMENOrdering Facility: [facility] Address: [address] [place] [address] Performed By: #### 5 7021-8 ####[facility] [id number] [place] [address] [place] Monocytes/100 WBC (Bld) 5.9 % Normal [facility] Comment on above: Order Comment: Speci men Type: BLOOD SPECIMENOrdering Facility: [facility] Address: [address] [place] [address] Performed By: #### 5 7021-8 ####[facility] [id number] [place] [address] [place] Neutrophils (Bld) [#/Vol] 6.31 10*3/uL Normal 1.45-7.50 [facility] Comment on above: Order Comment: Speci men Type: BLOOD SPECIMENOrdering Facility: [facility] Address: [address] [place] [address] Performed By: #### 5 7021-8 ####[facility]ITALNCLIA [id number] [place] [address] [place] Neutrophils/100 WBC (Bld) 67.7 % Normal [facility] Comment on above: Order Comment: Speci men Type: BLOOD SPECIMENOrdering Facility: [facility] Address: [address] [place] [address] Performed By: #### 5 7021-8 ####[facility] [id number] [place] [address] [place] Nucleated RBC (Bld) [#/Vol] 10*3/uL Normal <0.01 [facility] Comment on above: Order Comment: Speci men Type: BLOOD SPECIMENOrdering Facility: [facility] Address: [address] [place] [address] Performed By: #### 5 7021-8 ####[facility] [id number] [place] [address] [place] Nucleated RBC/100 WBC (Bld) [Ratio] 0.0 /100 WBC Normal [facility] Comment on above: Order Comment: Speci men Type: BLOOD SPECIMENOrdering Facility: [facility] Address: [address] [place] [address] Performed By: #### 5 7021-8 ####[facility] [id number] [place] [address] [place] Platelet mean volume (Bld) [Entitic vol] 10.5 fL Normal 9.0-12.7 [facility] Comment on above: Order Comment: Speci men Type: BLOOD SPECIMENOrdering Facility: [facility] Address: [address] [place] [address] Performed By: #### 5 7021-8 ####[facility] [id number] [place] [address] [place] Platelets (Bld) [#/Vol] 264 10*3/uL Normal 150-400 [facility] Comment on above: Order Comment: Speci men Type: BLOOD SPECIMENOrdering Facility: [facility] Address: [facility] [place], [place] [address] Performed By: #### 5 7021-8 ####[facility] OSMINDOMINGUEZ [id number] [place] [address] [place] RBC (Bld) [#/Vol] 4.17 10*6/uL Normal 3.90-5.20 [facility] Comment on above: Order Comment: Speci men Type: BLOOD SPECIMENOrdering Facility: [facility] Address: [address] [place], [place] [address] Performed By: #### 5 7021-8 ####[facility] OSMINDOMINGUEZ [id number] [address] [place] WBC (Bld) [#/Vol] 9.34 10*3/uL Normal 3.70-11.00 [facility] Comment on above: Order Comment: Speci men Type: BLOOD SPECIMENOrdering Facility: [facility] Address: [address] [place] [address] Performed By: #### 5 7021-8 ####[facility] LUISASPENCORINEA [id number] [address] [place] Examination level ultrasound on 08-15-2024 Indication First trimester anatomic survey Impression The patient is referred for a first trimester anatomy scan including nuchal translucency measurement as clinically indicated. - Single, live, intrauterine . - [place] rump length measurement is consistent with the established gestational age. - A qualitative screen of the nuchal translucency and other anatomic structures was unremarkable on a complete first trimester anatomic assessment. - Not all structural malformations can be detected by ultrasound examination. Maternal Structures: Left Ovary: Size 32 mm x 22 mm x 14 mm Recommendations - An anatomic survey at 18-20 weeks is recommended given no identified risk factors. Maternal Assessment Height 168 cm Height (ft) 5 ft Height (in) 6 in Physical Exam Initial weight (lb) 170 lb Initial BMI 27.44 kg/m Maternal assessment other: 1 Para 0 REMOTE READ Method Transabdominal ultrasound examination Dooley . Number of fetuses: 1 Dating LMP on: 05/18/2024 GA by LMP 12 w + 5 d ENE by LMP: 02/22/2025 GA by prior assessment 12 w + 5 d ENE by prior assessment: 02/22/2025 Ultrasound examination on: 08/15/2024 GA by U/S based upon: CRL GA by U/S 12 w + 0 d ENE by U/S: 02/27/2025 Assigned: based on stated ENE, selected on 08/15/2024 Assigned GA 12 w + 5 d Assigned ENE: 02/22/2025 General Evaluation Cardiac activity present Placenta: anterior Cord vessels: 3 vessel cord Amniotic fluid: normal amount Biometry Standard FHR 157 bpm CRL 53.0 mm 12w 0d 4% Hadlock First Trimester Anatomy Calvarium: normal Falx cerebri: normal Choroid plexus: normal Profile: normal Nasal bone: normal Retronasal triangle: normal Maxilla: normal Mandible: normal Nuchal translucency: Unremarkable Situs: normal Cardiac position: normal Cardiac axis: normal 4-chamber view: visualized 4-chamber view with color: visualized 6-zcojpq-pbxztmu view: normal Abdominal cord insertion: normal Stomach: normal Kidneys: normal Bladder: normal Color doppler of perivesical umbilical arteries: normal Vertebral alignment: normal Arms: normal Hands: normal Legs: normal Feet: normal Maternal Structures Uterus / Cervix Uterus: Visualized Uterus length 120 mm Uterus width 112 mm Uterus height 72 mm Uterus Vol 505.8 cm Ovaries / Tubes / Adnexa Rt ovary: Not visualized Lt ovary: Visualized Lt ovary D1 32 mm Lt ovary D2 22 mm Lt ovary D3 14 mm Lt ovary Vol 4.9 cm Performed By: Pratima Reeves RDMS, RVT Read By: Dionne Pearson M.D. MATERNAL MEDICINE [facility] Radiology Study observation (narrative) [facility] HBV surface Ag Ser Qlon 07-31 HBV surface Ag Ql (S) Negative Normal Negative [facility] Comment on above: Order Comment: Speci men Type: BLOOD SPECIMENOrdering Facility: [facility] Address: [address] [place] [address] Performed By: #### 5 195-3, 77077-8, 79086-3 ####[facility] LABCLIA [id number] [place] [address] [place] HCV Ab Ser Qlon 08-15-2024 HCV Ab Ql (S) Negative Normal Negative [facility] Comment on above: Order Comment: Speci men Type: SWAB [facility] Address: [address] [place] [address] Result Comment: The result suggests no evidence of infection with Hepatitis C virus. Should recent infection be suspected, repeat testing may be considered 4-6 weeks after this draw. Performed By: #### T RVAMP, 01471-0 #### [facility] CLIA [id number] [address] [place] [address] [place] HIV 1+2 Ab IA Qlon HIV 1 and 2 Ab IA.rapid Nom (S/P/Bld) Normal [facility] Comment on above: Order Comment: Speci men Type: BLOOD SPECIMENOrdering Facility: [facility] Address: [address] [place] [address] Result Comment: Test not indicated. Performed By: #### 5 195-3, 28315-3, 83740-0 ####[facility] LABCLIA [id number] [place] [address] [place] HIV 1+2 Ab+HIV1 p24 Ag IA Ql Non-Reactive Normal Nonreactive [facility] Comment on above: Order Comment: Speci men Type: BLOOD SPECIMENOrdering Facility: [facility] Address: [address] [place] [address] Performed By: #### 5 195-3, 62729-7, 17170-3 ####[facility] LABCLIA [id number] [place] [address] [place] HIV immunoassay testing algorithm interpretation (S/P/Bld) [Interp] Normal [facility] Comment on above: Order Comment: Speci men Type: BLOOD SPECIMENOrdering Facility: [facility] Address: [address] [place] [address] Result Comment: No e vidence of HIV-1 or HIV-2 infection. Should recent infection be suspected, repeat testing may be considered 2-3 weeks after this draw. [place] Rev. Code 3701.243(E): This information has been disclosed to you from confidential records protected from disclosure by state law. You shall make no further disclosure of this information without the specific, written, and informed release of the individual to whom it pertains or as otherwise permitted by state law. A general authorization for the release of medical or other information is not sufficient for the purpose of the release of HIV test results or diagnoses. Performed By: #### 5 195-3, 10623-3, 78366-3 ####[facility] LABCLIA [id number] [place] [address] [place] HbA1c (Bld)on 08-15-2024 Average glucose Estimated from glycated hemoglobin (Bld) [Mass/Vol] 85 mg/dL Normal [facility] Comment on above: Order Comment: Speci men Type: SWAB [facility] Address: [address] [place] [address] Result Comment: eAG: (Estimated average glucose) is a calculated value from HgbA1c and is junior sales representative of the average blood glucose level in the last 2-3 month period. Performed By: #### T RVAMP, 45285-0 #### [facility] CLIA [id number] [address] [place] [address] [place] HbA1c (Bld) [Mass fraction] 4.6 % Normal 4.3-5.6 [facility] Comment on above: Order Comment: Speci men Type: SWAB [facility] Address: [address] [place] [address] Result Comment: [place] Diabetes Association guidelines indicate that patients with HgbA1c in the range 5.7-6.4% are at increased risk for development of diabetes, and intervention by lifestyle modification may be beneficial. HgbA1c greater or equal to 6.5% is considered diagnostic of diabetes. Performed By: #### T RVAMP, 25664-0 #### [facility] CLIA [id number] [address] [place] [address] [place] [id number] PLUSon 08-15-2024 Cell-free DNA./Cell-free DNA.total Dosage of chromosome-specific cfDNA (cfDNA) [Molar fraction] 19% Normal [facility] Comment on above: Order Comment: Speci men Type: SWAB [facility] Address: [address] [place] [address] Performed By: #### T RVAMP, 63457-5 #### [facility] CLIA [id number] [address] [place] [address] [place] Chr 13+18+21+X+Y aneuploidy Dosage of chromosome-specific cfDNA Ql (cfDNA) Negative Normal [facility] Comment on above: Order Comment: Speci men Type: SWAB [facility] Address: [address] [place] [address] Performed By: #### T RVAMP, 48245-0 #### [facility] CLIA [id number] [address] [place] [address] OF JUNIOR Chr 21 trisomy Dosage of chromosome-specific cfDNA Ql (cfDNA) Negative Normal [facility] Comment on above: Order Comment: Speci men Type: SWAB [facility] Address: [address] [place] [address] Performed By: #### T RVAMP, 72711-6 #### [facility] CLIA [id number] [address] [place] [address] [place] Chr X and Y aneuploidy risk Sequencing Ql (cfDNA) [Interp] Not detected Normal [facility] Comment on above: Order Comment: Speci men Type: SWAB [facility] Address: [address] [place] [address] Result Comment: Not Detected Not Detected Performed By: #### T RVAMP, 67127-1 #### [facility] CLIA [id number] [address] [place] [address] [place] Citation Bola (Reference lab test) Comment Normal [facility] Comment on above: Order Comment: Speci men Type: SWAB [facility] Address: [address] [place] [address] Result Comment: 1. P eric ROSAS, et al. Jade Med. 2012;14(3):296-305. 2. Cristina CONCEPCION et al. Prenat Diag. 2013;33(6):591-597. 3. Landen Cerda, et al. Clin Chem. 2015 Apr;61(4):608-616. 4. Neyda ROSAS et al. Jade Med. 2011;13(11):913-920. 5. ACOG/SMFM Practice Bulletin No. 226, Jan 2020. Performed By: #### T RVAMP, 03200-1 #### [facility] CLIA [id number] [address] [place] [address] [place] Gestational age Estimated from conception date Dooley Normal [facility] Comment on above: Order Comment: Speci men Type: SWAB Ordering Facility: [facility] Address: [address] [place] [address] Performed By: #### T RVAMP, 78939-3 #### [facility] CLIA [id number] [address] [place] [address] [place]UN[place] GESTATIONALAGE AGE > OR = 9W Yes Normal [facility] Comment on above: Order Comment: Speci men Type: SWAB Ordering Facility: [facility] Address: [address] [place] [address] Performed By: #### T RVAMP, 92067-4 #### [facility] CLIA [id number] [address] [place] [address] [place] Laboratory comment Bola (Report) Comment Normal [facility] Comment on above: Order Comment: Speci men Type: SWAB Ordering Facility: [facility] Address: [address] [place] [address] Result Comment: The MaterniT(R) 21 PLUS laboratory-developed test (LDT) analyzes circulating cell-free DNA from a maternal blood sample. This test is used for screening purposes and not diagnostic. Clinical correlation is recommended. Validation data on twin pregnancies is limited and the ability of this test to detect aneuploidy in higher multiple gestations has not yet been validated. Performed By: #### T RVAMP, 56826-7 #### [facility] CLIA [id number] [address] [place] [address] teenage program director name Nom (Provider) Comment Normal [facility] Comment on above: Order Comment: Speci men Type: SWAB Ordering Facility: [facility] Address: [address] [place] [address] Result Comment: This specimen showed an expected representation of chromosome 21, 18 and 13 material. Clinical correlation is suggested. Comment Dajuan Luna MD, PhD, Director, [employer] Performed By: #### T RVAMP, 19121-9 #### [facility] CLIA [id number] [address] [place] [address] LIMITATIONS OF THE TEST Comment Normal [facility] Comment on above: Order Comment: Speci men Type: SWAB Ordering Facility: [facility] Address: [address] [place] [address] Result Comment: Ashley rogel the results of these tests are highly reliable, discordant results, including inaccurate sex prediction, may occur due to placental, maternal, or mosaicism or neoplasm; vanishing twin; prior maternal organ transplant; or other causes. These tests are screening tests and not diagnostic; they do not replace the accuracy and precision of diagnosis with CVS or amniocentesis. A patient with a positive test result should be referred for genetic counseling and offered invasive diagnosis for confirmation of test results.[5] The results of this testing, including the benefits and limitations, should be discussed with a qualified healthcare provider. management decisions, including termination of the , should not be based on the results of these tests alone. The healthcare provider is responsible for the use of this information in the management of their patient. Sex chromosomal aneuploidies are not reportable for known multiple gestations. A negative result does not ensure an unaffected nor does it exclude the possibility of other chromosomal abnormalities or defects which are not a part of these tests. An uninformative result may be reported, the causes of which may include, but are not limited to, insufficient sequencing coverage, noise or artifacts in the region, amplification or sequencing bias, or insufficient fraction. These tests are not intended to identify pregnancies at risk for neural tube defects or ventral wall defects. Testing for whole chromosome abnormalities (including sex chromosomes) and for subchromosomal abnormalities could lead to the potential discovery of both and maternal genomic abnormalities that could have major, minor, or no, clinical significance. Evaluating the significance of a positive or a non-reportable result may involve both invasive testing and additional studies on the mother. Such investigations may lead to a diagnosis of maternal chromosomal or subchromosomal abnormalities, which on occasion may be associated with benign or malignant maternal neoplasms. These tests may not accurately identify triploidy, balanced rearrangements, or the precise location of subchromosomal duplications or deletions; these may be detected by diagnosis with CVS or amniocentesis. The ability to report results may be impacted by maternal BMI, maternal weight, maternal systemic lupus erythematosus (SLE) and/or by certain pharmaceutical agents such as low molecular weight heparin (for example: Lovenox(R), Xaparin(R), Clexane(R) and Fragmin(R)). Performed By: #### T RVAMP, 21126-4 #### [facility] CLIA [id number] [address] [place] [address] STATES OF [facility] Monosomy X risk Dosage of chromosome-specific cfDNA Ql (Plasma cell-free+WBC DNA) [Interp] Not detected Normal [facility] Comment on above: Order Comment: Speci men Type: SWAB Ordering Facility: [facility] Address: [address] [place] [address] Performed By: #### T RVAMP, 15401-8 #### [facility] CLIA [id number] [address] [place] [address] [place] OF [place] NEGATIVE PREDICTIVE VALUE Note Normal [facility] Comment on above: Order Comment: Speci men Type: SWAB Ordering Facility: [facility] Address: [address] [place] [address] Result Comment: The Negative Predictive Value (NPV) for trisomy 21, 18, and 13 is greater than 99%. The NPV for SCA and ESS cannot be calculated as SCA and ESS are only reported when an abnormality is detected. Performed By: #### T RVAMP, 69402-0 #### [facility] CLIA [id number] [address] [facility] [place] [id number] [facility] Note Normal [facility] Comment on above: Order Comment: Speci men Type: SWAB Ordering Facility: [facility] Address: [address] [place] [address] Result Comment: ! Sex ! Accuracy: 99.4% ! ! ! ! Region (associated syndrome) ! Est. Sens# ! Est. Spec ! ! ! ! Trisomy 21 (Down Syndrome) ! 99.1% ! 99.9% ! ! ! ! Trisomy 18 (Bro Syndrome) ! >99.9% ! 99.6% ! ! ! ! Trisomy 13 (Patau Syndrome) ! 91.7% ! 99.7% ! ! ! ! Sex Chromosome Aneuploidies## ! 96.2% ! 99.7% ! ! ! * As reported in [facility] database nstd37 [https://www.ncbi.nlm.nih.gov/dbvar/studies/nstd37/ ] # Estimated Sensitivity. Sensitivity estimated across the observed size distribution of each syndrome [per [facility] database nstd37] and across the range of fractions observed in routine clinical NIPT. Actual sensitivity can also be influenced by other factors such as the size of the event, total sequence counts, amplification bias, or sequence bias. ## Dooley gestation only. Performed By: #### T RVAMP, 65877-7 #### [facility] CLIA [id number] [address] [place] [address] [place] POSITIVE PREDICTIVE VALUE N/A Normal [facility] Comment on above: Order Comment: Nicole keyes Type: SWAB Ordering Facility: [facility] Address: [address] [place] [address] Performed By: #### T RVAMP, 05068-8 #### [facility] CLIA [id number] [address] [place] [address] [place] Reference Lab Test Method Comment Normal [facility] Comment on above: Order Comment: Nicole keyes Type: SWAB Ordering Facility: [facility] Address: [address] [place] [address] Result Comment: See Notes Circulating cell-free DNA was purified from the plasma component of maternal blood. The extracted DNA was then converted into a genomic DNA library for aneuploidy analysis of chromosomes 21, 18, and 13 via next generation sequencing.[1] Optional findings based on the test order include sex chromosome aneuploidy (SCA)[2], and enhanced sequencing series (ESS)[3], which will only be reported on as an additional finding when an abnormality is detected. SCA testing includes information on X and Y representation, while ESS testing includes deletions in selected regions (22q, 15q, 11q, 8q, 5p, 4p, 1p) and trisomy of chromosomes 16 and 22. Performed By: #### T RVAMP, 41248-1 #### [facility] CLIA [id number] [address] [place] [address] [place] Service comment (Unsp spec) [Interp] Comment Normal [facility] Comment on above: Order Comment: Speci men Type: SWAB Ordering Facility: [facility] Address: [address] [place] [address] Result Comment: See Notes [employer]. is a subsidiary of [employer], using the brand [employer]. This test was developed and its performance characteristics determined by [employer]. It has not been cleared or approved by the Food and Drug Administration. This laboratory is certified under the Clinical Laboratory Improvement Amendments (CLIA) as qualified to perform high complexity clinical laboratory testing and accredited by the [employer] (CAP). If there is future clinical need for adding MaterniT GENOME testing, this specimen will be available until term. [facility] samples will not be retained beyond 60 days. [facility] patients will have to send a new sample for re-sequencing ([facility] Test Code: [id number]). Performed By: #### T RVAMP, 12220-9 #### [facility] CLIA [id number] [address] [place] [address] [place] Sex Dosage of chromosome-specific cfDNA Nom (cfDNA) Comment Normal [facility] Comment on above: Order Comment: Speci men Type: SWAB Ordering Facility: [facility] Address: [address] [place] [address] Result Comment: Cons istent with Female Performed By: #### T RVAMP, 41045-4 #### [facility] CLIA [id number] [address] [place] [address] [place] Test performance information Bola (Unsp spec) Comment Normal [facility] Comment on above: Order Comment: Speci men Type: SWAB Ordering Facility: [facility] Address: [address] [place] [address] Result Comment: The performance characteristics of the MaterniT(R) 21 PLUS laboratory-developed test (LDT) have been determined in a clinical validation study with women at increased risk for chromosomal aneuploidy.[1-4] Performed By: #### T RVAMP, 65382-9 #### [facility] CLIA [id number] [address] [place] [address] [place] Trisomy 13 risk Dosage of chromosome-specific cfDNA Ql (cfDNA) [Interp] Negative Normal [facility] Comment on above: Order Comment: Speci men Type: SWAB Ordering Facility: [facility] Address: [address] [place] [address] Performed By: #### T RVAMP, 14431-7 #### [facility] CLIA [id number] [address] [place] [address] [place]UNIOR Trisomy 18 risk Dosage of chromosome-specific cfDNA Ql (Plasma cell-free+WBC DNA) [Interp] Negative Normal [facility] Comment on above: Order Comment: Speci men Type: SWAB Ordering Facility: [facility] Address: [address] [place] [address] Performed By: #### T RVAMP, 74012-3 #### [facility] CLIA [id number] [address] [place] [address] [place] RUBELLA IGG ANTIBODYon 08-15 RUBELLA IGG AB, QUAL Positive Normal Positive [facility] Comment on above: Order Comment: Neali men Type: BLOOD SPECIMENOrdering Facility: [facility] Address: [address] [place] [address] Result Comment: The result suggests recent or past exposure to Rubella virus or history of Rubella vaccination. Positive result may also be seen due to presence of passively-transferred antibodies. Please correlate with patient's history. Performed By: #### R UBIGG ####[facility] [id number] [place] [address] [place] Reagin and Treponema pallidu m IgG and IgM [Interp]on 08-15-2024 T. pallidum IgG+IgM IA Ql (S) Non-Reactive Normal Nonreactive [facility] Comment on above: Order Comment: Speci men Type: BLOOD SPECIMENOrdering Facility: [facility] Address: [address] [place] [address] Performed By: #### 5 195-3, 76809-4, 32775-3 ####[facility] [id number] [place] [address] [place] Reagin+T pallidum IgG+IgM Se rPl-Impon 08-15-2024 Reagin and Treponema pallidum IgG and IgM [Interp] Cannot exclude recent Treponemal infection if specimen collected within 7-10 days after appearance of suspect lesions or 2-3 weeks after an exposure. Clinical correlation is required. Normal [facility] Comment on above: Order Comment: Speci men Type: BLOOD SPECIMENOrdering Facility: [facility] Address: [address] [place] [address] Performed By: #### 5 195-3, 62631-2, 96350-1 ####[facility] [id number] [place] [id number] [place] TYPE + SCREEN PRENATALon ABO O Normal [facility] Comment on above: Order Comment: Speci [facility] Type: BLOOD SPECIMEN Ordering Facility: [facility] Address: [address] [place] [address] Performed By: #### 5 7021-8 #### [facility] CLIA [id number] [address] [place] [address] [place] Rh Nom (Bld) Positive Normal [facility] Comment on above: Order Comment: Speci men Type: BLOOD SPECIMEN Ordering Facility: [facility] Address: [address] [place] [address] Performed By: #### 5 7021-8 #### [facility] CLIA [id number] [address] [place] [address] [place] [facility] TYPE AND SCREEN EXPIRATION 08/18/2024 23:59 Normal [facility] Comment on above: Order Comment: Speci men Type: BLOOD SPECIMEN Ordering Facility: [facility] Address: [address] [place] [address] Performed By: #### 5 7021-8 #### [facility] CLIA [id number] [address] [place] [address] [place] Bacteria Ur Culton 5 Bacteria identified Cx Nom (U) CULTURE, URINE: No growth (<1,000 CFU/ml) Normal [facility] Comment on above: Performed By: #### 6 30-4 ####[facility] [id number] [place] [address] [place] C. trachomatis+N. gonorrhoea e DNA AD+probe Ql (Unsp spec)on 07-18-2024 C. trachomatis rRNA AD+probe Ql (Unsp spec) Not detected Normal Not detected [facility] Comment on above: Order Comment: Speci men Type: SWAB Ordering Facility: [facility] Address: [address] [place] [address] Performed By: #### T RVAMP, 11689-4 #### [facility] CLIA [id number] [address] [place] [address] [place] N. gonorrhoeae rRNA AD+probe Ql (Unsp spec) Not detected Normal Not detected [facility] Comment on above: Order Comment: Speci men Type: SWAB Ordering Facility: [facility] Address: [address] [place] [address] Performed By: #### T RVAMP, 51394-8 #### [facility] CLIA [id number] [address] [place] [address] [place] POC [employer] DRIVER ULTRASOUNDon 07-19-19 Indication Confirmation of intrauterine . Confirmation of cardiac activity. Estimation of gestational age Impression cardiac activity is visualized, CRL indicates discrepancy from clinical dates, EEN not changed, having 1st trimester US in 4 weeks Recommendations Follow up for 1st Trimester Anatomy with Nuchal Translucency as clinically indicated if desired. Method Transvaginal ultrasound examination. View: Adequate visualization Dooley . Number of embryos: 1 Dating LMP on: 05/18/2024 GA by LMP 8 w + 5 d ENE by LMP: 02/22/2025 Ultrasound examination on: 07/18/2024 GA by U/S based upon: CRL GA by U/S 7 w + 5 d ENE by U/S: 03/01/2025 Assigned: based on the LMP, selected on 07/18/2024 Assigned GA 8 w + 5 d Assigned ENE: 02/22/2025 Biometry Standard FHR 141 bpm CRL 13.9 mm 7w 5d <1% Hadlock Assessment Gestational sac: visualized Location: intrauterine Yolk sac: visualized Embryo: visualized CRL 13.9 mm 7w 5d <1% Hadlock Cardiac activity: present FHR 141 bpm General Evaluation Cardiac activity present. FHR 141 bpm Performed By: Yasmeen Vera CNP Read By: Yasmeen Vera CNP MATERNAL MEDICINE [facility] Radiology Study observation (narrative) [facility] TRICHOMONAS VAGINALIS NAATon 07-18-2024 T. vaginalis DNA AD+probe Ql (Unsp spec) Not detected Normal Not detected [facility] Comment on above: Order Comment: Speci men Type: SWAB [facility]ing Facility: [facility] Address: [address] [place] [address] Performed By: #### T RVAMP, 15977-5 #### [facility] CLIA [id number] [address] [place] [address] [place] 07-15-2024 DAVYN Telephone (OBHot PotatoWM) -------- SMITA NGUYEN ([id number]) 1995 F Date Time Provider Department 07/15/24 BRENNAN HEAD During your visit today, we recorded the following information about you: Deann Perez MA 07/15/2024 2:55 PM Signed Attempted to contact patient by phone number listed in chart to go over new ob intake questions. No answer. Had to leave a voicemail. Patient was advised to come in 30 minutes early to her appointment to complete if she is unable to speak to someone. JUNIOR Rodriguez Tara, RN 07/15/2024 3:31 PM Signed Pt called back for intake questions. Informed her MA is unavailable at this time; however, message will be sent if she is available between patients tomorrow, she may be able to call-Pt states she is available tomorrow. BBPayam notified. However, did inform Pt that if Deann is unable to return call, we ask that she come 30 minutes prior to appt for intake questions and to arrive with full bladder. Pt voiced understanding. Pamela Cooper RN Allergies As of Date: 07/15/2024 Noted Allergy Reaction SULFAMETHOXAZOLE-T RIMETHOPRIM 09/26/2016 2 - Rash AZITHROMYCIN 10/30/2023 2 - Rash 4 - Hives 8 - GI Upset BUSPIRONE 01/29/2023 1 - Mental Status Change CEFTRIAXONE 01/08/2015 14 - Other: See Comments ERYTHROMYCIN BASE 05/17/2015 2 - Rash MORPHINE 05/02/2022 8 - GI Upset Date Reviewed: 06/13/2024 Reviewed by: Toña Blankenship MD - Fully Assessed Prescriptions as of 07/15/2024 - escitalopram oxalate (LEXAPRO) 20 mg tablet Take 1.5 tablets by mouth once daily. - SACCHAROMYCES BOULARDII ORAL - INOSITOL ORAL - cholecalciferol, vitamin D3, (VITAMIN D3 ORAL) - MAGNESIUM GLYCINATE, BULK, MISC - cyclobenzaprine (FLEXERIL) 10 mg tablet Take 10 mg by mouth daily at bedtime. Problem List As Of Date 07/15/2024 Noted Resolved TMJ (temporomandibular joint syndrome) [M26.609] 9 Medications Discontinued During This Encounter Prescriptions - progesterone micronized (PROMETRIUM) 100 mg capsule (Discontinued) Take 3 capsules by mouth once daily. Used for mood. Progesterone - Compound - vitamin B complex with C-FA-CU-ZN renal vitamins (DIATX ZN) 5-1.5-25 mg tab (Discontinued) Reported on 05/07/2024 Encounter Status:Closed by PAMELA COOPER on 07/15/24 [facility] CNOVon 06-13-2024 CNOV Office Visit (OBGYWM) -------- WENDYCARLOSSMITA ([id number]) 1995 F Date Time Provider Department 06/13/24 3:20 PM TOÑA BLANKENSHIP OBGYWM During your visit today, we recorded the following information about you: Blood pressure Weight Last Period 114/76 75.3 kg 05/18/24 Toña Blankenship MD 06/13/2024 4:33 PM Signed Smita Nguyen is a 29 year old female who presents for problem visit for preconceptual counseling and irreg menses HPI: 29 YOF has tried to conceive for past year. Has been using LH strips to detect ovulation. Has been using home fertility monitor now. Has been on progesterone for mood stabilization. has semen analysis that was normal. Menses 3 days and that is less than before used to be 4-5 years ago. Not a lot of cramping. No pain w/ intercourse. INtercourse regularly around ovulation. Cycles 27-37 days, most within 28-32 day. Has been sexually activity without contraception in the past and hasn't conceived. Partner hasn't fathered a . She has never had chemo or radiation, no surgery on abdomen. No h/o peritoneal infection. Has been on progesterone for years. OB History Gravida0 Para0 Term0 Preterm0 AB0 Living0 SAB0 IAB0 Ectopic0 Multiple0 Live Births0 Can Solderer History LMP: 05/18/2024 (Exact Date), Having periods Age at Menarche: Age at First : Age at Menopause: Can Solderer History Comments: Sexual Activity: Yes; Male Contraception: Condom No past medical history on file. No past surgical history on file. FAMILY HISTORY Problem Relation Age of Onset No Known Problems Mother No Known Problems Father Social History Tobacco Use Smoking status: Never Smokeless tobacco: Never Vaping Use Vaping status: Never Used Substance Use Topics Alcohol use: Yes Comment: rarely Drug use: Never Current Outpatient Medications Medication Sig escitalopram oxalate (LEXAPRO) 20 mg tablet Take 1.5 tablets by mouth once daily. progesterone micronized (PROMETRIUM) 100 mg capsule Take 3 capsules by mouth once daily. Used for mood. Progesterone - Compound vitamin B complex with C-FA-CU-ZN renal vitamins (DIATX ZN) 5-1.5-25 mg tab Take 1 tablet by mouth once daily. (Patient not taking: Reported on 05/07/2024) SACCHAROMYCES BOULARDII ORAL INOSITOL ORAL cholecalciferol, vitamin D3, (VITAMIN D3 ORAL) MAGNESIUM GLYCINATE, BULK, MISC cyclobenzaprine (FLEXERIL) 10 mg tablet Take 10 mg by mouth daily at bedtime. No current facility-administe red medications for this visit. Allergies As of Date: 06/13/2024 Allergen Noted Reaction SULFAMETHOXAZOLE-T RIMETHOPRIM 09/26/2016 Rash AZITHROMYCIN 10/30/2023 Rash, Hives, and GI Upset BUSPIRONE 01/29/2023 Mental Status Change CEFTRIAXONE 01/08/2015 Other: See Comments ERYTHROMYCIN BASE 05/17/2015 Rash MORPHINE 05/02/2022 GI Upset Fully Assessed 06/13/2024 Allergies and current medication updated:Yes SENSITIVE EXAM: The sensitive examination was discussed with the Patient or Patient's Authorized Seasonal Greenery Bundler. As applicable, any other physician, advance practice provider, medical student, or other health professional student that will be observing or involved in the sensitive examination for educational or training purposes was discussed with the Patient or Authorized Seasonal Greenery Bundler. The Patient or Authorized Seasonal Greenery Bundler has agreed to proceed with the sensitive examination. (Sensitive examination includes inspection and/or palpation of the breasts, pelvis, prostate and anorectal regions). EXAM: BP 114/76 Wt 166 lb (75.3kg) LMP 05/18/2024 GENERAL: pleasant, female in no apparent distress ASSESSMENT AND PLAN: Assessment AND Plan Encounter for preconception consultation Irregular menstrual cycle I discussed with the patient that based on her cycles and fertility tracking it seems like she is ovulatory. Agree with continuing vitamins. Agree with other supplements. Strongly recommend she stop the daily progesterone as that may be affecting fertility. We reviewed risk benefits and alternatives to trial of ovulation induction with Femara or Clomid. Discussed with her would not likely significantly change her conception rates as it seems she is ovulating regularly. Discussed with her option of HSG. No other labs are strongly recommended at this time. Offered consult with reproductive endocrinology. Patient states she is not ready for this at this time. She is very concerned about how fertility medications and manipulating her hormones may affect her anxiety as it seems like it is affected her anxiety in the past. She would like to stop the if she has not conceived at that time she may consider proceeding with HSG. Pogesterone supplementation at the onset of her next menses and we will track her menses for the next 2 to 3 months and follow-up after that. She has a psychiatrist and a psy (more content not included)... Normal [facility] US Pelvison 05-19-2024 Indication irregular menses, desire for Impression Normal appearing anteverted uterus that measures 75 mm x 32 mm x 47 mm. Endometrium has a normal trilaminar appearance and measures 8.1 mm. Normal endometrial contour. Both ovaries are visualized and appear normal with follicular change. No adnexal masses were observed. There is no free fluid visualized in the peritoneal cavity. Recommendations Follow up as clinically indicated. Menstrual History LMP on 04/19/2024. Contraception: none Method Transabdominal, transvaginal, 3D ultrasound examination, Color Doppler examination. View: Adequate visualization Uterus Uterus: Visualized Uterus position: anteverted Description of uterine malformations: none Myometrium: normal Endometrium: three-layer pattern Cervix details: cystic lesions identified suggesting superficial Nabothian cysts Uterus length 75 mm Uterus width 47 mm Uterus height 32 mm Uterus Vol 57.6 cm Endometrial thickness, total 8.1 mm Fibroids: No fibroids identified Polyps: No polyps identified Right Ovary Rt ovary: Visualized Rt ovary morphology: premenopausal normal follicular Rt ovary D1 34 mm Rt ovary D2 17 mm Rt ovary D3 13 mm Rt ovary Vol 4.1 cm Left Ovary Lt ovary: Visualized Lt ovary morphology: premenopausal with dominant follicle Lt ovary D1 30 mm Lt ovary D2 24 mm Lt ovary D3 22 mm Lt ovary Vol 8.2 cm Cul de Sac Visualized. no free fluid visualized Performed By: Gaby Hoffman RDMS Read By: Marcie Shields M.D. MATERNAL MEDICINE [facility] Pelvison 05-16-2024 Radiology Study observation (narrative) [facility] Telephone (OBGYWM) -------- SMITA NGUYEN ([id number]) 1995 F Date Time Provider Department 05/09/24 BRENNAN HEAD During your visit today, we recorded the following information about you: Allergies As of Date: 05/09/2024 Noted Allergy Reaction AZITHROMYCIN 10/30/2023 2 - Rash 4 - Hives 8 - GI Upset BUSPIRONE 01/29/2023 1 - Mental Status Change MORPHINE 05/02/2022 8 - GI Upset Date Reviewed: 05/07/2024 Reviewed by: Brennan Head APRN.STONE BELT SANDER - Fully Assessed Reason for Visit: Results [95] Prescriptions as of 05/14/2024 - nitrofurantoin monohydrate and macrocrystal (MACROBID) 100 mg capsule Take 1 capsule by mouth two times a day for 7 days. - progesterone micronized (PROMETRIUM) 100 mg capsule Take 3 capsules by mouth once daily. Used for mood. Progesterone - Compound - escitalopram oxalate (LEXAPRO) 20 mg tablet Take 1.5 tablets by mouth once daily. - vitamin B complex with C-FA-CU-ZN renal vitamins (DIATX ZN) 5-1.5-25 mg tab Take 1 tablet by mouth once daily. - SACCHAROMYCES BOULARDII ORAL - INOSITOL ORAL - cholecalciferol, vitamin D3, (VITAMIN D3 ORAL) - MAGNESIUM GLYCINATE, BULK, MISC - cyclobenzaprine (FLEXERIL) 10 mg tablet Take 10 mg by mouth daily at bedtime. Problem List As Of Date 05/09/2024 Noted Resolved TMJ (temporomandibular joint syndrome) [M26.609] 9 Encounter Status:Closed by BRENNAN HEAD on 05/14/24 Normal [facility] Bacteria Ur Culton 5 Bacteria identified Cx Nom (U) ORGANISM ID: 1 >=100,000 CFU/ml Escherichia coli ORGANISM ID: 1 (ESCHERICHIA COLI) ANTIBIOTIC INTERPRETATION KATHY STATUS REFERENCE RANGE Ampicillin S 4 F Susceptible <=8 , Intermediate >8 , Resistant >16 Cefazolin S <=4 F Susceptible 0-16 , Intermediate <0 or >16 , Resistant >16 For uncomplicated urinary tract infections, cefazolin results can be used to predict susceptibility or resistance to cephalexin. Ceftriaxone S <=1 F Susceptible <=1 , Intermediate >1 , Resistant >=4 Cefepime S <=1 F Susceptible <=2 , Susceptible-Dose Dependent >2 , Resistant >=16 Ertapenem S <=0.5 F Susceptible <=0.5 , Intermediate >.5 , Resistant >1 Meropenem S <=0.25 F Susceptible <=1 , Intermediate >1 , Resistant >2 Ampicillin/Sulbact S <=2 F Susceptible <=8 , Intermediate >8 , Resistant >16 Piperacillin/Tazob ac S <=4 F Susceptible <16 , Susceptible-Dose Dependent >=16 , Resistant >=32 Gentamicin S <=1 F Susceptible <=2 , Intermediate >2 , Resistant >=8 Tobramycin S <=1 F Susceptible <4 , Intermediate >=4 , Resistant >=8 Trimeth sulfameth S <=20 F Susceptible <=40 , Resistant >40 Ciprofloxacin S <=0.25 F Susceptible <0.5 , Intermediate >=.5 , Resistant >=1 Nitrofurantoin S <=16 F Susceptible <=32 , Intermediate >32 , Resistant >64 Abnormal [facility] Comment on above: Performed By: #### 6 30-4 ####[facility] LABCLIA [id number] [address] CNOVon 05-07-2024 CNOV Office Visit (OBGYWM) -------- SMITA NGUYEN ([id number]) 1995 F Date Time Provider Department 05/07/24 10:45 AM BRENNAN HEAD During your visit today, we recorded the following information about you: Blood pressure Weight Last Period 110/60 76.2 kg 04/19/24 Brennan Head APRN.STONE BELT SANDER 05/07/2024 11:12 AM Signed Shuffle Board Operator offered: Patient declines. Smita Nguyen is a 29 year old female who presents for problem visit for burning with urination for 4 days. HPI: Smita presents for burning with urination for 4 days. Urine has a slight odor to it. She is experiencing vaginal discharge, but reports she just ovulated and thinks it may be related to that as it is not irritating or causing itching. She has also been attempting to conceive for about 1 year with timed intercourse. Wondering what next steps are as this is starting to become emotionally and mentally difficult for her. Cycles can last up to 37 days long. OB History T0 L0 SAB0 IAB0 Ectopic0 Multiple0 Live Births0 Can Solderer History LMP: 03/22/2024 (Exact Date), Having periods Age at Menarche: Age at First : Age at Menopause: Can Solderer History Comments: Sexual Activity: Yes; Male Contraception: Condom No past medical history on file. No past surgical history on file. FAMILY HISTORY Problem Relation Age of Onset No Known Problems Mother No Known Problems Father Social History Tobacco Use Smoking status: Never Smokeless tobacco: Never Vaping Use Vaping status: Never Used Substance Use Topics Alcohol use: Yes Comment: rarely Drug use: Never Current Outpatient Medications Medication Sig progesterone micronized (PROMETRIUM) 100 mg capsule Take 3 capsules by mouth once daily. Used for mood. Progesterone - Compound escitalopram oxalate (LEXAPRO) 20 mg tablet Take 1.5 tablets by mouth once daily. vitamin B complex with C-FA-CU-ZN renal vitamins (DIATX ZN) 5-1.5-25 mg tab Take 1 tablet by mouth once daily. SACCHAROMYCES BOULARDII ORAL INOSITOL ORAL cholecalciferol, vitamin D3, (VITAMIN D3 ORAL) MAGNESIUM GLYCINATE, BULK, MISC cyclobenzaprine (FLEXERIL) 10 mg tablet Take 10 mg by mouth daily at bedtime. No current facility-administe red medications for this visit. Allergies As of Date: 05/07/2024 Allergen Noted Reaction AZITHROMYCIN 10/30/2023 Rash, Hives, and GI Upset BUSPIRONE 01/29/2023 Mental Status Change MORPHINE 05/02/2022 GI Upset Fully Assessed 03/28/2024 REVIEW OF SYSTEMS Bladder: No gross hematuria, urinary frequency, urinary urgency, or incontinence. + dysuria, odor Expanded ROS: PATIENT FINANCIAL SERVICES SPECIALIST: Negative for abnormal vaginal bleeding, abnormal vaginal discharge Allergies and current medication updated:Yes SENSITIVE EXAM: Sensitive exam declined. Discussed rationale and impact on treatment. EXAM: BP 110/60 Wt 168 lb (76.2kg) LMP 04/19/2024 GENERAL: pleasant, female in no apparent distress HEENT: Normocephalic, atraumatic, mucus membranes moist, and no lesions CHEST: Normal inspiratory effort NEURO: alert and oriented x3,exam grossly non-focal EXTREMITIES: normal ASSESSMENT AND PLAN: 1. Dysuria - ICD9: 788.1, ICD10: R30.0 (primary diagnosis) - Push fluids -Avoid bladder irritants - spicy, citrus, tomatoes, smoking, coffee, tea, pop, carbonation, artificial sweeteners and alcohol. - UA DIP, URINE (POC) - BACTERIAL CULTURE, URINE - NITROFURANTOIN MONOHYDRATE AND MACROCRYSTAL 100 MG ORAL CAP 2. Vaginal discharge - ICD9: 623.5, ICD10: N89.8 - Declines testing for this 3. Desire for - ICD9: V26.9, ICD10: Z31.9 4. Irregular menstrual cycle - ICD9: 626.4, ICD10: N92.6 - PELVIC US WHI - To follow up to discuss preconception/fert bernie Head APRN.CNP Medical Decision Making: Problems: Low: Acute, uncomplicated illness or injury and Stable chronic illness Data: Unique test(s) ordered: 2 Risk: Low: Low risk from testing/treatment Moderate: Drug management Medical Decision Making Level: 3 - Low Allergies As of Date: 05/07/2024 Noted Allergy Reaction AZITHROMYCIN 10/30/2023 2 - Rash 4 - Hives 8 - GI Upset BUSPIRONE 01/29/2023 1 - Mental Status Change MORPHINE 05/02/2022 8 - GI Upset Date Reviewed: 05/07/2024 Reviewed by: Brennan Head APRN.STONE BELT SANDER - Fully Assessed Reason for Visit: Vaginal Problem [117] Urinary Problem [252] Primary Visit Diagnosis:Dysuria [R30.0] Other Visit Diagnoses:Vaginal discharge [N89.8] Desire for [Z31.9] Irregular menstrual cycle [N92.6] Order(s):UA DIP, URINE (POC) [[id number]] Order #: [id number] #:[id number] BACTERIAL CULTURE, URINE [SQURCUL] Order #: [id number]. #:[id number] nitrofurantoin monohydrate and macrocrystal (MACROBID) 100 mg capsuleTake 1 capsule by mouth two times a day for 7 days.Disp: 14 capsuleRfl: 0 PELVIC US I [[id number]] Order #: [id number] (more content not included)... Normal [facility] UA DIP, URINE (POC)on 2024 BILIRUBIN UA (POCT) Negative Negative [facility] CLARITY UA (POCT) [facility] COLOR UA (POCT) Yellow [facility] GLUCOSE UA (POCT) Negative Negative mg/dL [facility] Hemoglobin Ql (U) Moderate Abnormal Negative [facility] Interpretation and review of laboratory results Abnormal [facility] KETONE UA (POCT) Negative Negative mg/dL [facility] LEUKOCYTES UA (POCT) Moderate Abnormal Negative [facility] NITRITE UA (POCT) Negative Negative [facility] PH UA (POCT) 6.0 4.5 - 8.0 [facility] Protein Ql (U) Negative Negative mg/dL [facility] SPECIFIC GRAVITY UA (POCT) 1.020 1.005 - 1.030 [facility] UROBILINOGEN UA (POCT) 0.2 Normal E.U./d L [facility] Location:[facility], [address] [facility], [place], [place], [id number] [place] [address] POINT OF CARE [facility] BACTERIAL VAGINOSIS NAATon 1 05-29-2023 Lactobacillus crispatus+gasseri+jense shakira + Gardnerella vaginalis + Atopobium vaginae rRNA AD+probe Ql (Vag fld) Not detected Normal Not detected [facility] Comment on above: Order Comment: Speci men Type: SWABOrdering Facility: [facility] Address: [address] [place] [address] Performed By: #### B HELENE CVTV ####[facility] LABCLIA [id number] [place] [address] [place] MYRA/TRICHOMONAS NAATon 1 05-29-2023 C. glabrata RNA AD+probe Ql (Vag fld) Not detected Normal Not detected [facility] Comment on above: Order Comment: Speci men Type: SWABOrdering Facility: [facility] Address: [address] [place] [address] Performed By: #### B VAMP, CVTV ####[facility] LABCLIA [id number] [address] [place] Myra sp DNA AD+probe Ql (Vag fld) Not detected Normal Not detected [facility] Comment on above: Order Comment: Speci men Type: SWABOrdering Facility: [facility] Address: [address] [place] [address] Result Comment: The Myra species group target includes C. albicans, C. tropicalis, C. parapsilosis, and C. dubliniensis. Performed By: #### B VAMP, CVTV ####[facility] LABCLIA [id number] [address] [place] T. vaginalis DNA AD+probe Ql (Unsp spec) Not detected Normal Not detected [facility] Comment on above: Order Comment: Speci men Type: SWABOrdering Facility: [facility] Address: [address] [place] [address] Performed By: #### B VAMP, CVTV ####[facility] LABCLIA [id number] [address] [place] CNOVon 03-28-2024 CNOV Office Visit (OBGYWM) -------- WENDYSMITA ([id number]) 1995 F Date Time Provider Department 03/28/24 9:30 AM CAMELIA HERRERA During your visit today, we recorded the following information about you: Blood pressure Weight Last Period 110/74 78 kg 03/22/24 Camelia Herrera APRN.CNM 03/28/2024 3:16 PM Signed Smita Nguyen is a 28 year old female who presents for problem visit HPI: Presents today with complaint of vaginal discharge, odor, and concerns she has another BV infection. Denies any other complaint. OB History T0 L0 SAB0 IAB0 Ectopic0 Multiple0 Live Births0 Can Solderer History LMP: 03/22/2024 (Exact Date), Having periods Age at Menarche: Age at First : Age at Menopause: Can Solderer History Comments: Sexual Activity: Yes; Male Contraception: Condom No past medical history on file. No past surgical history on file. FAMILY HISTORY Problem Relation Age of Onset No Known Problems Mother No Known Problems Father Social History Tobacco Use Smoking status: Never Smokeless tobacco: Never Vaping Use Vaping status: Never Used Substance Use Topics Alcohol use: Yes Comment: rarely Drug use: Never Current Outpatient Medications Medication Sig progesterone micronized (PROMETRIUM) 100 mg capsule Take 3 capsules by mouth once daily. Used for mood. Progesterone - Compound escitalopram oxalate (LEXAPRO) 20 mg tablet Take 1.5 tablets by mouth once daily. vitamin B complex with C-FA-CU-ZN renal vitamins (DIATX ZN) 5-1.5-25 mg tab Take 1 tablet by mouth once daily. SACCHAROMYCES BOULARDII ORAL INOSITOL ORAL cholecalciferol, vitamin D3, (VITAMIN D3 ORAL) MAGNESIUM GLYCINATE, BULK, MISC cyclobenzaprine (FLEXERIL) 10 mg tablet Take 10 mg by mouth daily at bedtime. No current facility-administe red medications for this visit. Allergies As of Date: 03/28/2024 Allergen Noted Reaction AZITHROMYCIN 10/30/2023 Rash, Hives, and GI Upset BUSPIRONE 01/29/2023 Mental Status Change MORPHINE 05/02/2022 GI Upset Fully Assessed 03/28/2024 REVIEW OF SYSTEMS Abdomen: No bloating, early satiety, indigestion, or increased flatulence. No abdominal pain, nausea, vomiting, diarrhea, or constipation. Bladder: No dysuria, gross hematuria, urinary frequency, urinary urgency, or incontinence. Breast: No breast lumps, nipple d/c, overlying skin changes, redness or skin retraction. Expanded ROS: N/A Allergies and current medication updated:Yes SENSITIVE EXAM: The sensitive examination was discussed with the Patient or Patient's Authorized Seasonal Greenery Bundler. As applicable, any other physician, advance practice provider, medical student, or other health professional student that will be observing or involved in the sensitive examination for educational or training purposes was discussed with the Patient or Authorized Seasonal Greenery Bundler. The Patient or Authorized Seasonal Greenery Bundler has agreed to proceed with the sensitive examination. (Sensitive examination includes inspection and/or palpation of the breasts, pelvis, prostate and anorectal regions). EXAM: BP 110/74 Wt 172 lb (78.0kg) LMP 03/22/2024 GENERAL: pleasant, female in no apparent distress HEENT: Normocephalic and atraumatic NECK: Supple and full range of motion PELVIC: external genitalia normal, normal Bartholin's glands, urethra, Ireton's glands, no vulvar lesions, no cervical lesions, good vaginal support, physiologic discharge present, normal appearing perineal body and perianal region BIMANUAL: uterus normal size, shape and consistency, no adnexal masses, and non-tender NEURO: alert and oriented x3,exam grossly non-focal EXTREMITIES: normal ASSESSMENT AND PLAN: Assessment AND Plan Vaginal discharge Orders: MYRA/TRICHOMONA S NAAT BACTERIAL VAGINOSIS NAAT Vaginal odor Orders: MYRA/TRICHOMONA S NAAT BACTERIAL VAGINOSIS NAAT Camelia Herrera APRN.CNM Allergies As of Date: 03/28/2024 Noted Allergy Reaction AZITHROMYCIN 10/30/2023 2 - Rash 4 - Hives 8 - GI Upset BUSPIRONE 01/29/2023 1 - Mental Status Change MORPHINE 05/02/2022 8 - GI Upset Date Reviewed: 03/28/2024 Reviewed by: Lisandro Rainey MA - Fully Assessed Primary Visit Diagnosis:Vaginal discharge [N89.8] Other Visit Diagnosis:Vaginal odor [N89.8] Order(s):MYRA/T RICHOMONAS NAAT [SQCVTV] Order #: [id number]. #:[id number] BACTERIAL VAGINOSIS NAAT [SQBVAMP] Order #: [id number]. #:[id number] Prescriptions as of 03/28/2024 - progesterone micronized (PROMETRIUM) 100 mg capsule Take 3 capsules by mouth once daily. Used for mood. Progesterone - Compound - escitalopram oxalate (LEXAPRO) 20 mg tablet Take 1.5 tablets by mouth once daily. - vitamin B complex with C-FA-CU-ZN renal vitamins (DIATX ZN) 5-1.5-25 mg tab Take 1 tablet by mouth once daily. - SACCHAROMYCES BOULARDII ORAL - INOSITOL ORAL - chol (more content not included)... Normal [facility] HIGH RISK HUMAN PAPILLOMA ANTONELLA (HPV), PCR FOR DETECTION AND GENOTYPINGOrdered By: Asha Mackenzie on 02-08-2024 HPV 16 Ag Ql (Unsp spec) Not detected Not detected [facility] HPV 18 Ag Ql (Unsp spec) Not detected Not detected [facility] HPV 31+33+35+39+45+51+52+56 +58+59+66+68 DNA AD+probe Ql (Cvx) Not detected Not detected [facility] Comment on above: High Risk HPV Other Type includes HPV types 31, 33, 35, 39, 45, 51, 52, 56, 58, 59, 66 and 68. Interpretation and review of laboratory results Normal [facility] This test was developed and its performance characteristics determined by [facility] ([facility]). It has not been cleared or approved by the FDA. [facility] is regulated under CLIA as qualified to perform high-complexity testing. This test is used for clinical purposes. It should not be regarded as investigational or for research. [facility] No Panel InformationOrdered By: Naz Salazar on 02-08-2024 [facility] PAP TESTOrdered By: Naz garcia on 02-08-2024 Case Report Gynecologic Cytology Report Case: [id number] Authorizing Provider: Camelia Herrera APRN.CNM Collected: 02/04/2024 03:18 PM Ordering Location: OB/Gynecology Received: 02/04/2024 04:29 PM First Screen: Naz Salazar, CT, ASCP Specimen: Pap Test, ThinPrep, Cervix [facility] Clinical History Routine Exam [facility] Interpretation Negative [facility] LMP 01/15/2024 [facility] Pap Disclaimer [id number] VmbGFuZzEwMzNcZnRu YmpcdWMxIHtccnRmMV mml0CbD9MkNkKbNTeq bnNpXGRlZmxhbmcxMD OaHVH3hrLqBTDjNYuf PIFwJSkxXp6duAJvfR mzSlCgOWTkb9lfyuJS peqfjXr3j1vcHPNcVg I9cGScKQheH7vtgzWh mLTdKJNhJVg4aE24EK LngC7lcTNaWUpvzvBs JcJ3WHfhSJDsTkZ5FF KtgXQfLHQtF2ojFWRc XGdyZWVuMFxibHVlMC D6lOicf2G4kDNlfVEo dHtcZjBcZnMyMiBOb3 TvLEj4nEsyA9CuGLHc IuO6hVTtWPOkAWydLE KoPPGcvcF9yV96SPcs mvC9zQQbf0Xxz42wj0 38iK6ueSWnWFF6MLQe YJDubEDhJZQmRNO6BU LfjAYnT8zcVXJgMT7t cmdyMTgwMFxtYXJndD D6ACMfaWKmS8ZiBSCf RZdlPHUqsjb7ClJiVv 5koRAlcOeiGOdkf3oz r2vshGNmXnq8SGKjNe GoRubxRCfbc4Dkq2ze IHJqxs8iVUU3gBDmeU kay8U2rSUgWUZqfHXq puChTNJxUfN9PZicBQ 8aqz19UEJeARW4xt5u bGNccGdicmRyaGVhZF jwU5MrBKPhj737UWRi E1KpIBCzh8R4ruJkUv LyPYStuDJ2yvI6BYGy MOg2lMDafzP1twDvpU TjK8iizB1wHJQbGG2m wuolf8puJGslXMgxYI ZzlTC1rxN0XWVxhIJb F8LteW7hUZPjHKocSH Oqnow9QkFkPv3zhTIu eTcyMFxzYmtwYWdlXH BnbmNvbnRccGduZGVj XHBsYWluXHBsYWluXG YwXGZzMjRccWxccGxh eX7qWaJpFdPrWxlkCP 4eWGPmF9gjdSDrKKEz YHAnU0nhVkMvnW0kpG mjETgnbkN0YZPcWGDD BJHjB82fGSAxuLPzYA AyI6YrNH7adinkyWDy wNPko5AhV4PdydzlZZ loU3AzD5LkQeVlOsJa d8UegqWcEJNuhgRulr LhlKx4mqNlZ7M3szQ9 uQYoWIAbsYUxT9IqXS 5pbmcgdGVzdHMsIGVt oIqel0s2zJ9sCNOyNX BuZWVkIGZvciByZXNj cmVlbmluZyBhdCByZW DfaH0vvbWxBURnymYj cnZhbHMsIGFuZCBjbG hgcSQlsGHqh5DiIBkv iZwgwm9aeTpffK9vUn BeOmRcHjggTI6zBPPf N1ztkCPaEGCyWPJyW5 heGwNzsF0zeFrrVUbl yuScLDLkmb81 [facility] PAP Physical Chemistry Teacher Comment i1rdwRZfDGAew0rhCG VmbGFuZzEwMzNcZnRu YmpcdWMxIHtccnRmMV xdl5KqG8JyKwRnNQxw bnNpXGRlZmxhbmcxMD MfHYF5kwZjAZOnVKcg DQDlRNswEk2baJCneY wbWsYjTITgj5nzsnFR hrveiVr0s7jnLQEiMk E0jDCkTKwuA0dyvlWy kAKwBTEnHWl1uS19EG RvkK8eoTQpSIekcaUi UxX6YMbwPOPwBfW3EC LcbBUyVCKaI9ozXTWv XGdyZWVuMFxibHVlMC C2gFlmn4X7fMBicCLr dHtcZjBcZnMyMiBOb3 VjIVg8gYqsI2XdJISb BgQ8hPJuZWGcGAvjTK VyXXLfoaT5zC62JOvr xoW7xYKts0Cwp14rz8 31fU7ydFPgBZE2XVMd SFEesBDoPPMkJOH4FY WtsWHdZ7dtXDDdTY7m cmdyMTgwMFxtYXJndD I0XTGifUVdV6MuARNb SAmoHENnzne9EzLtTi 8geGBwoIjrDTphx5jf p7kzoCMdKrl5BHQpHm RrSwziFOkoa3Myb1vw JOEqfn5eCBV1uQXscX rue3M6pBSlYADieAFa fnYlKZCuOqC6PZtaRB 4rfv83DYIlGNK0ow3m bGNccGdicmRyaGVhZF ebC2PnZGZui248DAXx U5QzHGMvs7L4noVrOg IsEQJhhEV0anN7RWQu OQt6uFDpsoZ5efOvbD MbT1gdfA7xLFSpDL6s iphkg6czSNxqBCcoKH ZjvWC3wtT3NUDkxKAm U1PntZ3hTVAlYFwoBF Kaxnh6AuSoJf7xxZXo eTcyMFxzYmtwYWdlXH BnbmNvbnRccGduZGVj XHBsYWluXHBsYWluXG YwXGZzMjRccWxccGxh bQ1fMiItKnAfUzwzQF 1zGVWuH0ezgZJpBPPv ELGhT8mcGbRssK7aoX msVXxxkpD4BRzpXQmk tfVntMNgxJ8tktMiVJ MgYmVlbiBhbmFseXpl CFUshTY3sXLqNEtebl KoVUWcXT0oD2aaUwQU sQK4IP0oDDOnFUC5pI 4kNYSaXEJyhDGsmZ4r IGFuZCByZXZpZXcgc3 ledQHkEGH3tLddjJTz x7Uyc6HmFNOuZLOeZM DsjdS2y4A2TPldRXU1 LOd3AFZyrlvdY6XkbT Smh64vNTyczxPuWEVo KZJcCUUau2NdKyJrKp 2aoR55gQ2yUSQ4cI7g BAOfEDBndCQcaJ7tYC QiZYmsR8CkBNXasWBz ZHMgZnJvbSBldmVyeS BzbGlkZSBhcmUgcmV2 aLE6GEOhAbmxMNUjdX LzbHUdkQ2bcL1zmGJ0 LlxwbGFpblxmMVxmcz IyXGxhbmcxMDMzXGhp P0uyYzKqVCUkyHbiRY utg8MvXUKiRFAxXzZg cGFyfX0= [facility] Performing Lab d9mtnYKqDUYdg9lkJE VmbGFuZzEwMzNcZnRu YmpcdWMxIHtccnRmMV xhbnNpXGRlZmxhbmcx ILEwPMJ4xbQzCTTjUI L9KVI2IsTrd6L8JDAn LfBtMNWxHU4asAtzOZ EuOS7xMHKmN6qsvI7o wdl8MoQaKYQrAdZ3XQ RrcpP2Kfo6FKTsOBwm o8uwx1MlKCXjQSf0uB zoIdRlPJCcp4euwkGz ZmNoYXJzZXQwIEFyaW GzC731o3myn6wdeaWe pXB8WNWuEDA5HGxfpw MvnhF7SMlkkUXnIvY9 IDtccmVkMFxncmVlbj MhLsp1DRFnC275SHE2 cUrgw7nyVCW7UUSzUE NrFqPeSt5ebXNpV746 AEBsOUMCTHTtoHq2AD KnipYpmpBxvJUHe640 C930r9nlJTLujeKokA rGdaqwa1hlT261REXa cGVydzEyMjQwXHBhcG YtzOZ0DGQoZH0bcxsw CBkkDMbsAQAhwcC9LO DkaAUgI7CoBPGkHA0d kzhmPIL2GRcbDTMyVN A0YsAyTGUdz6Tdqcj6 ReEcor4suo40XYX7j3 RdvHhzIOT4GJH5VoKo Ew1fbHIvPXGsWX9uMp YhlIDtMENhpk73pBpd LTxxgbXxxO3eUeCpFT RbaJTwXWCaPS6vmNYv ILUyfT6clbqgDAOkYn JkcmhlYWRccGdicmRy Dm7qzTqoRVH0NEzmQ0 droH7oIfK0SBmxP8vr eJ9gHIw2ZHevvLP3TY GruB3dFW4pyblrk6tk SCiwDJcnBIVxueR5lx I8UORtvZSzO5LrwO2c FFJsVB8qmknix6nzDA M1LUmxDPRqCVL9McMg QBEmc2Bcavo6UrRwl4 LuyNWsHDmbD50ua240 PVQxjuZmH8xdgTSoaa xwbGFpblxmMFxmczI0 XHFsXHBsYWluXGYxXG ZzMjJcbGFuZzEwMzNc aGljaFxmMVxkYmNoXG FpBDesI2syBqAoUpJj MiBUZWNobmljYWwgY2 7acJ9yOP95DPDxnPIy oNPxnE3grW8zpWJ6DD NjcmVlbmluZyBwZXJm c9YtGHJdRZStU4nrjg QxIT8eEJTnlB4bNqiq OTUwMCBFdWNsaWQgQX TnZAJGmKZ0HJlqvcWj E7qfVZArQCAwHNBAJH tAIjMlBrWyPvU2OWo5 ISDtcx24y6fulJWbGW NzdGVjZjIyMDAwXGFu z1ncTBGpoMBbPzCmDo NcZnRuYmpcdWMxXGRl WcAvz1yec010sDQxw1 lxRFXwMlE7sVAxQGMq aQDgY512TOIuFDdqf9 gax9CtEGBhsPYmp4I4 ABZVroxocId4eClbW3 3xc6J7FpczF5spEUMe QATgM2IpUL4qBDKgQe m3FUK7RUN6XVOvFAAq P3ElJN6dXXJbiIGyGZ k8y2xkiHyiEWRsVST8 s2adFLkmcnWgSX7mol 6yrYx7w4qnytHpIEHj MOIfdMRVBDMlU0VnvB eaDd0rxDt6qSgzGepy JLI2Wct0IB9syj72bj p1lEopKCIdmhmyMkR5 MJrmSUNxtblkPBh1SQ awFYXncGT2JOIyjEJl L4YhQPooKJ7clbx6NI J1TAjzWIObHgI1MWXi aGVhZGVyeTcyMFxmb2 71GBI4IgXjCX5hQ3Yq r3U7mA3bxYKuDXWluI SkQiWrCHWojy9thICk TIsfx7LpDYB4xoM6uT JqnXHyAIUeIG68Wbqi l2UcDuyzu2VrG44ptJ Q5VFwdk9vyWA4tPnB5 iaWhLFkzj3wixB4iOg N3PIreJD9bMR8eLSQw wA3cobrkTVJpFxCjoc tpODPbtKqrjeUtGx9g sBzdDBD2QQvhO8zrgZ 5dOcK5LVlyS6tfeA9x KWt6AVsuvOS4YRJsbQ 2aPR3oenenf3hfDUxm NJtmQFOmmuV9kfLjIH JbqXPpK7BtnE7kPHWc UJ1lbmrhy0xfWWR4HO kpQVImZGE8SgTyMIGt c8Gonuc6LuPqs4AokB SyLCqfB11ow165WLHu goUrD3kiwPOlotmbxP QaacjuBTttkgR1VGYf XHBsYWluXGYxXGZzMj BcbGFuZzEwMzNcaGlj aFxmMVxkYmNoXGYxXG htL5nmOkKeTtQdUKNV bILrsd5raFwzOZgnmH UnrXSalOV8cF9eSEYs fpKwau8eRMMteEJQzH T6IEvouhYlC6yesmxm MTB9DZCpWXW5F3svYR BBdmUsIENsZXZlbGFu RNKUWUD7QKN1WOEgUO ARKIDhZTT7NNE3MDJh OTRccGFyXHBhclxwYX JkXHBsYWluXGYwXGZz MuVwzUgaaC6dXeWaKi TaQIwbMO2uOJEbC0zy hHKxWXYsXYSwA3uiKz SnxH8naJydKKwfMaDz ZnMyMFxsdHJjaCBMYW OasfZ2k3C5TXffxLCn blxmMVxmczIwXGxhbm kqAWAnXMchV2gcArMk CQJyzMmbTVxfj3QrBF YxXGZzMjAgRGlyZWN0 k6Y0LHqplXSawyCLIt SLGM5isGZkgydyBQ1T LlxwbGFpblxmMVxmcz IyXGxhbmcxMDMzXGhp Q7omNtGsASFwfUavNY sky5LyIAZrZVDjJlHh cGFyfX0= [facility] Specimen Adequacy Satisfactory for interpretation. [facility] BACTERIAL VAGINOSIS NAATon 1 04-06-2023 Interpretation and review of laboratory results Abnormal [facility] Lactobacillus crispatus+gasseri+jense shakira + Gardnerella vaginalis + Atopobium vaginae rRNA AD+probe Ql (Vag fld) Positive Abnormal Negative for bacterial vaginosis [facility] MYRA/TRICHOMONAS NAATon 04-06-2023 C. glabrata RNA AD+probe Ql (Vag fld) Negative Negative for Myra glabrata [facility] Myra sp DNA AD+probe Ql (Vag fld) Negative Negative for Myra species [facility] Interpretation and review of laboratory results Normal [facility] T. vaginalis DNA AD+probe Ql (Unsp spec) Negative Negative for Trichomonas vaginalis by amplification [facility] BACTERIAL VAGINOSIS NAATon 1 04-05-2023 Lactobacillus crispatus+gasseri+jense shakira + Gardnerella vaginalis + Atopobium vaginae rRNA AD+probe Ql (Vag fld) Positive Abnormal Negative for bacterial vaginosis [facility] Comment on above: Order Comment: Speci men Type: SWAB Ordering Facility: [facility] Address: [address] [place] [address] Performed By: #### T RVAMP, 37629-6 #### [facility] CLIA [id number] [address] [place] [address] [place] MYRA/TRICHOMONAS NAATon 1 04-05-2023 C. glabrata RNA AD+probe Ql (Vag fld) Negative Normal Negative for Myra glabrata [facility] Comment on above: Order Comment: Speci men Type: SWAB Ordering Facility: [facility] Address: [address] [place] [address] Performed By: #### T RVAMP, 31638-1 #### [facility] CLIA [id number] [address] [place] [address] [place] Myra sp DNA AD+probe Ql (Vag fld) Negative Normal Negative for Myra species [facility] Comment on above: Order Comment: Speci men Type: SWAB Ordering Facility: [facility] Address: [address] [place] [address] Performed By: #### T RVAMP, 07703-9 #### [facility] CLIA [id number] [address] [place] [address] [place] T. vaginalis DNA AD+probe Ql (Unsp spec) Negative Normal Negative for Trichomonas vaginalis by amplification [facility] Comment on above: Order Comment: Speci men Type: SWAB Ordering Facility: [facility] Address: [address] [place] [address] Performed By: #### T [facility], 93821-4 #### [facility] CLIA [id number] [address] [place] [address] [place] [address] [place] CNOVon 02-04-2024 CNOV Office Visit (OBGYWM) -------- SMITA NGUYEN ([id number]) 1995 F Date Time Provider Department 02/04/24 2:45 PM CAMELIA HERRERA OBGYWM During your visit today, we recorded the following information about you: Blood pressure Weight Height Last Period 114/68 77.6 kg 1.676 m 01/15/24 Camelia Herrera APRN.CNM 02/11/2024 8:48 AM Signed Shuffle Board Operator offered: Patient declines. Grullon is a 28 year old who presents for an annual gynecologic exam. Attempting for the last 7 months. Did not attempt in December due to stress and needed a break. Stopped using OPK kits but did show LH surge when she was using them, notices mucous change during ovulation. [place] every other day when she is trying to conceive. Mckinley had semen analysis and normal. Menses: cycles every 30 days and 3 days of flow. Contraception: none, attempting for the last 7 months. HPV vaccine: No Last Pap: 06/16/2020 normal HPV: N/A History of abnormal pap: No Last mammogram: never Sexually active: Yes Pain with intercourse: No Postcoital bleeding: No Exercise: 4-6 times a week doing crossfit OB History T0 L0 SAB0 IAB0 Ectopic0 Multiple0 Live Births0 Can Solderer History LMP: 01/15/2024 (Exact Date), Having periods Age at Menarche: Age at First : Age at Menopause: Can Solderer History Comments: Sexual Activity: Yes; Male Contraception: Condom History reviewed. No pertinent past medical history.History reviewed. No pertinent surgical history. FAMILY HISTORY Problem Relation Age of Onset No Known Problems Mother No Known Problems Father SOCIAL HISTORY Social History Tobacco Use Smoking status: Never Smokeless tobacco: Never Vaping Use Vaping status: Never Used Substance Use Topics Alcohol use: Yes Comment: rarely Drug use: Never REVIEW OF SYSTEMS Abdomen: No abdominal pain, nausea, vomiting, diarrhea, or constipation. No bloating, early satiety, indigestion, or increased flatulence. Bladder: No dysuria, gross hematuria, urinary frequency, urinary urgency, or incontinence. Breast: No breast lumps, nipple d/c, overlying skin changes, redness or skin retraction. Allergies and current medication updated:Yes SENSITIVE EXAM: The sensitive examination was discussed with the Patient or Patient's Authorized Seasonal Greenery Bundler. As applicable, any other physician, advance practice provider, medical student, or other health professional student that will be observing or involved in the sensitive examination for educational or training purposes was discussed with the Patient or Authorized Seasonal Greenery Bundler. The Patient or Authorized Seasonal Greenery Bundler has agreed to proceed with the sensitive examination. (Sensitive examination includes inspection and/or palpation of the breasts, pelvis, prostate and anorectal regions). EXAM: BP 114/68 Ht 5' 6 (1.68m) Wt 171 lb (77.6kg) LMP 01/15/2024 BMI 27.61 kg/(m2). GENERAL: pleasant, female in no apparent distress HEENT: Normocephalic, atraumatic, mucus membranes moist, and no lesions NECK: Supple, full range of motion, no adenopathy, and thyroid normal DERMATOLOGY: Normal, without lesions, non-icteric, and non-hirsute BREAST: soft, non-tender, symmetric, no dominant mass, normal nipple-areolar complex, no lymphadenopathy, and no nipple discharge CHEST: Normal inspiratory effort ABDOMEN: soft, non-tender, and no masses PELVIC: external genitalia normal, normal Bartholin's glands, urethra, Ireton's glands, no vulvar lesions, no cervical lesions, good vaginal support, physiologic discharge present, normal appearing perineal body and perianal region BIMANUAL: uterus normal size, shape and consistency, no adnexal masses, and non-tender RECTOVAGINAL: deferred. NEURO: alert and oriented x3,exam grossly non-focal EXTREMITIES: normal ASSESSMENT/PLAN: 1. Encounter for gynecological examination (general) (routine) with abnormal findings - ICD9: V72.31, ICD10: Z01.411 (primary diagnosis) - Completed pelvic and breast exam - Encouraged monthly BSE - Follow up for annual exam in one year. - PAP TEST - BACTERIAL VAGINOSIS NAAT - MYRA/TRICHOMONA S NAAT - GONORRHEA/CHLAMYDI A NAAT - HIGH RISK HUMAN PAPILLOMA VIRUS (HPV), PCR FOR DETECTION AND GENOTYPING 2. Screening for cervical cancer - ICD9: V76.2, ICD10: Z12.4 - Completed pelvic and breast exam - Encouraged monthly BSE - Follow up for annual exam in one year. - PAP TEST - HIGH RISK HUMAN PAPILLOMA VIRUS (HPV), PCR FOR DETECTION AND GENOTYPING 3. Encounter for screening for human papillomavirus (HPV) - ICD9: V73.81, ICD10: Z11.51 - PAP TEST - HIGH RISK HUMAN PAPILLOMA VIRUS (HPV), PCR FOR DETECTION AND GENOTYPING 4. Encounter for preconception consultation - ICD9: V26.49, ICD10: Z31.69 -Reviewed at any point referral to physician or infertility. Appears to (more content not included)... Normal [facility] HIGH RISK HUMAN PAPILLOMA ANTONELLA (HPV), PCR FOR DETECTION AND GENOTYPINGon 02-04-2024 HPV 16 Ag Ql (Unsp spec) Not detected Normal Not detected [facility] Comment on above: Order Comment: Speci men Type: FLUID SPECIMENOrdering Facility: [facility] Address: [address] [place] [address] Performed By: #### H PVHRT ####[facility] [id number] [place] [address] [place] HPV 18 Ag Ql (Unsp spec) Not detected Normal Not detected [facility] Comment on above: Order Comment: Speci men Type: FLUID SPECIMENOrdering Facility: [facility] Address: [address] [place] [address] Performed By: #### H PVHRT ####[facility] [id number] [place] [address] [place] HPV 31+33+35+39+45+51+52+56 +58+59+66+68 DNA AD+probe Ql (Cvx) Not detected Normal Not detected [facility] Comment on above: Order Comment: Speci men Type: FLUID SPECIMENOrdering Facility: [facility] Address: [address] [place] [address] Result Comment: High Risk HPV Other Type includes HPV types 31, 33, 35, 39, 45, 51, 52, 56, 58, 59, 66 and 68. Performed By: #### H PVHRT ####[facility] [id number] [place] [address] [place] PAP TESTon 02-04-2024 ADEQUACY Satisfactory for interpretation. Normal [facility] Comment on above: Order Comment: Speci men Type: SWAB Ordering Facility: [facility] Address: [address] [place] [address] Performed By: #### T RVMICHAEL, 96025-3 #### [facility] CLIA [id number] [address] [place] [address] [place] CASE REPORT Normal [facility] Comment on above: Order Comment: Speci men Type: SWAB Ordering Facility: [facility] Address: [address] [place] [address] Result Comment: Gyne cologic Cytology Report Case: [id number] Authorizing Provider: Camelia Herrera APRN.CNM Collected: 02/04/2024 03:18 PM Ordering Location: OB/Gynecology Received: 02/04/2024 04:29 PM First Screen: Marie, Naz, CT, ASCP Specimen: Pap Test, ThinPrep, Cervix Performed By: #### T RVAMP, 97731-0 #### [facility] CLIA [id number] [address] [place] [address] [place] CLINICAL HISTORY, CYTOLOGY, PATIENT FINANCIAL SERVICES SPECIALIST Routine Exam Normal [facility] Comment on above: Order Comment: Speci men Type: SWAB Ordering Facility: [facility] Address: [address] [place] [address] Performed By: #### T RVAMP, 08198-3 #### [facility] CLIA [id number] [address] [place] [address] [place] FINAL PERFORMING LAB Normal [facility] Comment on above: Order Comment: Speci men Type: SWAB Ordering Facility: [facility] Address: [address] [place] [address] Result Comment: Tech nical component, belt loop cutter screening performed at [facility], [address] [place], [place] [id number] CLIA# [id number] Diagnostic interpretation performed at [facility], [address] [place], [place] [address] CLIA# [id number] Warp Knitting Machine Operator: Jose Terrell M.D. Performed By: #### T RVAMP, 10118-9 #### [facility] CLIA [id number] [address] [place] [address] [place] INTERPRETATION, CYTOLOGY, PATIENT FINANCIAL SERVICES SPECIALIST Normal [facility] Comment on above: Order Comment: Speci men Type: SWAB Ordering Facility: [facility] Address: [address] [place] [address] Result Comment: Nega tive for intraepithelial lesion or malignancy. Performed By: #### T RVAMP, 77134-7 #### [facility] CLIA [id number] [address] [place] [address] [place] LMP 01/15/2024 Normal [facility] Comment on above: Order Comment: Speci men Type: SWAB Ordering Facility: [facility] Address: [address] [place] [address] Performed By: #### T RVAMP, 99964-2 #### [facility] CLIA [id number] [address] [place], [place] [id number] [place] PAP DISCLAIMER COMMENT The Pap Smear is a screening test for cervical cancer. False negative results occur with all screening tests, emphasizing the need for rescreening at recommended intervals, and clinical correlation. Normal [facility] Comment on above: Order Comment: Speci men Type: SWAB Ordering Facility: [facility] Address: [address] [place] [address] Performed By: #### T RVAMP, 84537-0 #### [facility] CLIA [id number] [address] [place] [address] PAP EDUCATION SPECIALIST COMMENT This specimen has been analyzed by the ThinPrep Imaging System, an automated imaging and review system, which assists the laboratory in evaluating cells on ThinPrep Pap tests. Following automated imaging, selected zuniga from every slide are reviewed by a belt loop cutter. Normal [facility] Comment on above: Order Comment: Speci men Type: SWAB Ordering Facility: [facility] Address: [address] [place] [address] Performed By: #### T RVAMP, 40681-7 #### [facility] CLIA [id number] [address] [place] [address] Miscellaneous Lab Procedureo n 10-01-2023 [facility] TEST Normal [facility] Comment on above: Order Comment: RED T OP SER/RF OR LAV PL/RF [id number] VITB7 RED TOP SER/RF OR LAV PL/RF Result Comment: TEST RESULTS LIMITS Vitamin B7 A, 0.51 ng/mL 0.05-0.83 TESTING PERFORMED AT [facility]. ORIGINAL REPORT ON FILE IN LAB CONTAINS ADDITIONAL TEST SITE INFORMATION. Performed By: #### L 801.1541 #### [facility] [address] [place], [address] [facility] TEST Normal [facility] Comment on above: Order Comment: PL/FZ LAV/GREEN HEPARIN [id number] AMINO ACID Result Comment: TEST RESULTS LIMITS TEST RESULTS LIMITS Amino Acid Profile, Qn, Plasma Taurine, 37.8 umol/L 29.2-132.3 Aspartate, 1.8 umol/L 0.0-7.4 Hydroxyproline, 14.6 umol/L 4.7-35.2 Threonine, 227.6 High umol/L 67.8-211.6 Serine, 109.4 umol/L 48.7-145.2 Asparagine, 59.0 umol/L 29.5-84.5 Glutamate, 30.1 umol/L 18.1-155.9 Glutamine, 423.6 umol/L 372.8-701.4 Sarcosine, 7.2 High umol/L 0.0-4.0 Alpha-aminoadipate, 0.6 umol/L 0.0-1.9 Proline, 112.8 umol/L 84.8-352.5 Glycine, 430.8 High umol/L 144.0-411.0 Alanine, 248.6 umol/L 209.2-515.5 Citrulline, 40.7 umol/L 15.6-46.9 Alpha-aminobutyrate, 11.5 umol/L 5.4-34.5 Valine, 215.0 umol/L 133.0-317.1 Cystine, 13.5 Low umol/L 15.8-47.3 Methionine, 28.0 umol/L 14.7-35.2 Homocitrulline, 0.6 umol/L 0.0-1.7 Cystathionine, <0.5 umol/L 0.0-0.7 Alloisoleucine, 1.1 umol/L 0.0-3.2 Isoleucine, 42.3 umol/L 32.8-88.3 Leucine, 95.0 umol/L 66.7-165.7 Tyrosine, 58.3 umol/L 27.8-83.3 Phenylalanine, 50.8 umol/L 35.8-76.9 Argininosuccinate, <0.1 umol/L 0.0-3.0 Beta-alanine, 2.3 umol/L 1.1-9.0 Beta-aminoisobutyrate, 0.6 umol/L 0.0-4.3 Homocystine, <0.3 umol/L 0.0-0.2 Gamma-aminobutyrate, <0.5 umol/L 0.0-0.6 Tryptophan, 64.3 umol/L 23.5-93.0 Hydroxylysine, <0.1 Low umol/L 0.1-0.8 Ornithine, 138.3 High umol/L 30.1-101.3 Lysine, 190.2 umol/L 94.0-278.0 Histidine, 53.6 umol/L 47.2-98.5 Arginine, 24.8 Low umol/L 36.3-119.2 Interpretation Plasma amino acid analysis reveals variations from the normal reference range for several amino acids. The pattern is not suggestive of a specific aminoacidopathy. This pattern may be due to differences in normal metabolism, patient diet, or treatment. Director Review Technical Component analysis performed at [facility] Professional Component interpretation performed: [facility] Caprice Sprague, PhD Director, Biochemical Genetics [address] [place] [id number] To discuss these results or other testing for inborn errors of metabolism, please contact our Biochemical Geneticists at [phone]), [facility] Customer Service, [place], [place] Methodology Amino acid concentrations were obtained by LC-MS/MS analysis. TESTING PERFORMED AT [facility]. ORIGINAL REPORT ON FILE IN LAB CONTAINS ADDITIONAL TEST SITE INFORMATION. TESTING PERFORMED AT [facility]. ORIGINAL REPORT ON FILE IN LAB CONTAINS ADDITIONAL TEST SITE INFORMATION. Performed By: #### L 801.1547, L506.0250, L3300.8200, L3300.8000, L801.1543, L503.0105, L801.1545, L801.1541 #### [facility] [address] [place], [address] Miscellaneous Lab Procedure 2on 10-01-2023 [facility] TEST 2 Normal [facility] Comment on above: Order Comment: [id number] VITB2 LAV WB/FZ [id number] VITB2 LAV WB/FZ Result Comment: TEST RESULTS LIMITS Vitamin B2, Whole Blood Vitamin B2, Whole Blood A, 320 ug/L 137-370 Reference interval reflects Flavin Adenine Dinucleotide (FAD), that accounts for approximately 90% of the total riboflavin in whole blood. TESTING PERFORMED AT [facility]. ORIGINAL REPORT ON FILE IN LAB CONTAINS ADDITIONAL TEST SITE INFORMATION. Performed By: #### L 801.1547, L506.0250, L3300.8200, L3300.8000, L801.1543, L503.0105, L801.1545, L801.1541 #### [facility] [address] [place], [address] Miscellaneous Lab Procedure 310-01-2023 [facility] LAB TEST 3 [facility] Comment on above: Order Comment: FRANCISCO JAVIER Barnhart [id number] VITB3 RED TOP SER OR LAV PL Result Comment: TEST RESULTS LIMITS Vitamin B5 A, 72.9 ng/mL 12.9-253.1 Comments A: This test was developed and its performance characteristics determined by [employer]. It has not been cleared or approved by the Food and Drug Administration. TESTING PERFORMED AT [facility]. ORIGINAL REPORT ON FILE IN LAB CONTAINS ADDITIONAL TEST SITE INFORMATION. Performed By: #### L 801.1547, L506.0250, L3300.8200, L3300.8000, L801.1543, L503.0105, L801.1545, L801.1541 #### [facility] [address] [place], [address] Miscellaneous Lab Procedure 10-01-2023 [facility] LAB TEST 4 [facility] Comment on above: Order Comment: LAV P L/RT [id number] VIT B5 RED TOP SER/RT OR Result Comment: TEST RESULTS LIMITS Vitamin B5 A, 72.9 ng/mL 12.9-253.1 Comments A: This test was developed and its performance characteristics determined by [employer]. It has not been cleared or approved by the Food and Drug Administration. TESTING PERFORMED AT [facility]. ORIGINAL REPORT ON FILE IN LAB CONTAINS ADDITIONAL TEST SITE INFORMATION. Performed By: #### L 801.1547, L506.0250, L3300.8200, L3300.8000, L801.1543, L503.0105, L801.1545, L801.1541 #### [facility] [address] [place], [place], [address] L3300.8200on 09-26-2023 VITAMIN B6 39.4 ug/L Normal 3.4-65.2 [facility] Comment on above: Order Comment: Test( s) 069379-Xdibnos B6 was developed and its performance characteristics determined by [employer]. It has not been cleared or approved by the Food and Drug Administration. Result Comment: Defi ciency: <3.4 Marginal: 3.4 - 5.1 Adequate: >5.1 Performed By: #### L 801.1547, L506.0250, L3300.8200, L3300.8000, L801.1543, L503.0105, L801.1545, L801.1541 #### [facility] [address] [place], [address] Vitamin B1, Thiamineon 09-25 VIT B1 THIAMINE 130.2 nmol/L Normal 66.5-200.0 [facility] Comment on above: Order Comment: Test( s) 919767-Jiiszzv B6 was developed and its performance characteristics determined by [employer]. It has not been cleared or approved by the Food and Drug Administration. Result Comment: Perf ormed at: - [address] [id number] [employer] Tech: Adrian Esqueda MD, Phone: [phone] Performed By: #### L 801.1547, L506.0250, L3300.8200, L3300.8000, L801.1543, L503.0105, L801.1545, L801.1541 #### [facility] [address] [place], [address] Folates, (Folic Acid)on 09-01 FOLATES 57.70 ng/mL High 3.1-55.4 [facility] Comment on above: Order Comment: N Result Comment: Slig ht Hemolysis, Result may be falsely increased. Performed By: #### L 801.1547, L506.0250, L3300.8200, L3300.8000, L801.1543, L503.0105, L801.1545, L801.1541 #### [facility] [address] [place], [address] Vitamin B12on 09-21-2023 Cobalamin (Vitamin B12) [Mass/Vol] 775 pg/mL Normal 211-911 [facility] Comment on above: Performed By: #### L 801.1547, L506.0250, L3300.8200, L3300.8000, L801.1543, L503.0105, L801.1545, L801.1541 #### [facility] [address] [place], [address] ECG 12-LEADon 11-20-2022 ECG 12-LEAD IMPRESSION: Sinus rhythm Electronically Signed On 11-19-2022 23:58:23 EDT by Lukas Darling [facility] ED Nursing Noteon 11-20-2022 ED Nursing Note Pt was discharged without her prescriptions. Voice message was left for pt and her spouse regarding prescriptions. Cinthia Angulo RN 11/20/[address] [facility] ED Nursing Note In 45 getting dressed for discharge Barbara Beck 11/20/[address] [facility] ED Nursing Note Dr. Donald at bedside Barbara Beck 11/20/[address] [facility] ED Nursing Note Pt resting in room. Respirations even and non labored. at bedside. Cinthia Angulo RN 11/20/[address] [facility] ED Nursing Note Pt out to restroom to provide urine sample Barbara Beck 11/19/[address] [facility] ED Nursing Note Sophia RN at bedside to medicate Barbara Diegontosh 11/19/[address] [facility] ED Nursing Note Patient given bagged lunch from [employer] Frances Parks, EMT 11/19/[address] [facility] ED Nursing Note Patient has 3 bags of belongings. Frances Parks, MILES 11/19/[address] [facility] ED Nursing Note Protective services at patient bedside offering patient cup of water. MILES Elena 11/19/[address] [facility] ED Nursing Note Physician is at patient bedside MILES Elena 11/19/[address] [facility] ED Nursing Note Patient has 3 bag of belongings. Patient was wanded and changed into two gowns. Frances Parks, MILES 11/19/[address] [facility] Laboratory - Drug toxicology Ordered By: Vikash Borden on 11-20-2022 Amphetamines Screen method >1000 ng/mL Ql (U) Negative [facility] Barbiturates Screen method >200 ng/mL Ql (U) Negative [facility] Benzodiazepines Ql (U) Positive [facility] Methadone Screen Ql (U) Negative S [facility] Opiates Screen Ql (U) Negative [facility] oxyCODONE Ql (U) Negative [facility] alth Phencyclidine Ql (U) Negative [facility] No Panel InformationOrdered By: Vikash Borden on 11-20-2022 COCAINE METAB. SCREEN Negative [facility] The expected value for all of the drugs listed above is Negative. The following drugs or drug groups have been screened for by Immunoassay at the following thresholds: Amphetamine class (1000 ng/mL) Barbiturates (200 ng/mL) Benzodiazepines (200 ng/mL) Cocaine (300 ng/mL) Methadone (300 ng/mL) Opiates (300 ng/mL) Oxycodone (100 ng/mL) PCP (25 ng/mL) NOTE: These results are for medical treatment only. Analysis performed using non-forensic procedures. POSITIVE results are NOT confirmed by a more specific alternative method unless requested. If confirmation is needed, request confirmation under separate order. [facility] .Auto Diffon 11-19-2022 Basophil, Absolute 0.1 10 3/mcL Normal 0.0-0.2 [facility] ([place]) Comment on above: Performed By: #### C BC, ANEU, MDW, ADIFF, GFR, BMP, ALC #### [address] [address] Basophils/100 WBC (Bld) 0.6 % Normal 0.0-2.5 A [facility] ([place]) Comment on above: Performed By: #### C BC, ANEU, MDW, ADIFF, GFR, BMP, ALC #### [address] [address] Eosinophil, Absolute 0.1 10 3/mcL Normal 0.0-0.4 [facility] ([place]) Comment on above: Performed By: #### C BC, ANEU, MDW, ADIFF, GFR, BMP, ALC #### [address] [address] Eosinophils/100 WBC (Bld) 0.6 % Normal 0.0-7.0 [facility] ([place]) Comment on above: Performed By: #### C BC, ANEU, MDW, ADIFF, GFR, BMP, ALC #### [address] [address] Lymphocyte, Absolute 3.1 10 3/mcL Normal 0.8-3.9 [facility] ([place]) Comment on above: Performed By: #### C BC, ANEU, MDW, ADIFF, GFR, BMP, ALC #### [address] [address] Lymphocytes/100 WBC (Bld) 32.1 % Normal 10.0-50.0 [facility] ([place]) Comment on above: Performed By: #### C BC, ANEU, MDW, ADIFF, GFR, BMP, ALC #### [address] [address] Monocyte, Absolute 0.8 10 3/mcL Normal 0.2-1.0 [facility] ([place]) Comment on above: Performed By: #### C ERICA, MD AZULW, ADIFF, GFR, BMP, ALC #### [address] [address] Monocytes/100 WBC (Bld) 8.5 % Normal 1.7-13.0 A [facility] ([place]) Comment on above: Performed By: #### C ERICA, AZUL, MDW, ADIFF, GFR, BMP, ALC #### [address] [address] Neutrophils/100 WBC (Bld) 58.2 % Normal 37.0-80.0 [facility] ([place]) Comment on above: Performed By: #### C ERICA, AZUL, W, ADIFF, GFR, BMP, ALC #### [address] [address] .GFRon 11-19-2022 GFR 79 ml/min/1.73sqm Normal [facility] ([place]) Comment on above: Result Comment: GFR Population mean for , Non- Americans Ages 20-29 = 116 mL/min/1.73 sq.m. Ages 30-39 = 107 mL/min/1.73 sq.m. Ages 40-49 = 99 mL/min/1.73 sq.m. Ages 50-59 = 93 mL/min/1.73 sq.m. Ages 60-69 = 85 mL/min/1.73 sq.m. Ages 70+ = 75 mL/min/1.73 sq.m. Chronic Kidney Disease: Less than 60 mL/min/1.73 square meters End Stage Renal Disease: Less than 15 mL/min/1.73 square meters Performed By: #### G FR, LIPID, CMP #### [address] [address] GFR Non- 65 ml/min/1.73sqm Normal [facility] ([place]) Comment on above: Result Comment: GFR Population mean for , Non- Americans Ages 20-29 = 116 mL/min/1.73 sq.m. Ages 30-39 = 107 mL/min/1.73 sq.m. Ages 40-49 = 99 mL/min/1.73 sq.m. Ages 50-59 = 93 mL/min/1.73 sq.m. Ages 60-69 = 85 mL/min/1.73 sq.m. Ages 70+ = 75 mL/min/1.73 sq.m. Chronic Kidney Disease: Less than 60 mL/min/1.73 square meters End Stage Renal Disease: Less than 15 mL/min/1.73 square meters Performed By: #### G FR, LIPID, CMP #### [address] [address] .MDWon 11-19-2022 Monocyte Distribution Width 16.13 Normal 0.00-20.00 [facility] ([place]) Comment on above: Result Comment: For ED adult patients suspected of sepsis, MDW<=20.0 does not rule out sepsis or risk of sepsis Performed By: #### C BC, ANEU, MDW, ADIFF, GFR, BMP, ALC #### [address] [address] .NEUABSon 11-19-2022 Neutrophil, Absolute 5.6 10 3/mcL Normal 2.9-6.2 [facility] ([place]) Comment on above: Performed By: #### C BC, ANEU, MDW, ADIFF, GFR, BMP, ALC #### [address] [address] Loni 11-19-2022 Ethanol Level <3 Normal 0-3 [facility] ([place]) Comment on above: Performed By: #### G FR, LIPID, CMP #### [address] [address] BMPon 11-19-2022 BUN/Creatinine Ratio 14 ratio Normal 7-27 [facility] ([place]) Comment on above: Performed By: #### G FR, LIPID, CMP #### [address] [address] Calcium [Mass/Vol] 9.2 mg/dL Normal 8.4-10.2 [facility] ([place]) Comment on above: Performed By: #### G FR, LIPID, CMP #### [address] [address] Chloride [Moles/Vol] 101 mmol/L Normal 98-107 [facility] ([place]) Comment on above: Performed By: #### G FR, LIPID, CMP #### [address] [address] CO2 [Moles/Vol] 28 mmol/L Normal 22-29 [facility] ([place]) Comment on above: Performed By: #### G FR, LIPID, CMP #### [address] [address] Creatinine [Mass/Vol] 1.01 mg/dL Normal 0.55-1.02 [facility] ([place]) Comment on above: Performed By: #### G FR, LIPID, CMP #### [address] [address] Electrolyte Balance 9.0 mEq/L Normal 4.0-15.0 [facility] ([place]) Comment on above: Performed By: #### G FR, LIPID, CMP #### [address] [address] Glucose [Mass/Vol] 102 mg/dL Normal 70-105 [facility] ([place]) Comment on above: Performed By: #### G FR, LIPID, CMP #### [address] [address] Potassium [Moles/Vol] 3.4 mmol/L Low 3.5-5.1 [facility] ([place]) Comment on above: Performed By: #### G FR, LIPID, CMP #### [address] [address] Sodium [Moles/Vol] 138 mmol/L Normal 136-145 [facility] ([place]) Comment on above: Performed By: #### G FR, LIPID, CMP #### [address] [address] Urea nitrogen [Mass/Vol] 14 mg/dL Normal 7-18 [facility] ([place]) Comment on above: Performed By: #### G FR, LIPID, CMP #### [address] [address] CBCon 11-19-2022 Erythrocyte distribution width (RBC) [Ratio] 12.6 % Normal 11.5-14.5 [facility] ([place]) Comment on above: Performed By: #### C BC, AZUL, MDW, ADIFF, GFR, BMP, ALC #### [place] [address] Hematocrit (Bld) [Volume fraction] 39.0 % Normal 37.0-47.0 [facility] ([place]) Comment on above: Performed By: #### C BC, ANEU, MDW, ADIFF, GFR, BMP, ALC #### [address] [address] Hgb 13.8 G/dL Normal 12.0-16.0 [facility] ([place]) Comment on above: Performed By: #### C BC, ANEU, MDW, ADIFF, GFR, BMP, ALC #### [address] [address] MCH (RBC) [Entitic mass] 31.2 pg Normal 27.0-31.2 [facility] ([place]) Comment on above: Performed By: #### C BC, AZUL, MDW, ADIFF, GFR, BMP, ALC #### [place] [id number] MCHC 35.4 G/dL Normal 33.0-37.0 [facility] ([place]) Comment on above: Performed By: #### C BC, ANEU, MDW, ADIFF, GFR, BMP, ALC #### [place] [id number] MCV (RBC) [Entitic vol] 88.2 fL Normal 80.0-94.0 A [facility] ([place]) Comment on above: Performed By: #### C BC, AZUL, MDW, ADIFF, GFR, BMP, ALC #### [address] [address] Platelet 274 10 3/mcL Normal 130-400 [facility] ([place]) Comment on above: Performed By: #### C ERICA, LAMBERT LIANG, ADIFF, GFR, BMP, ALC #### [place] [id number] [place], [place] [address] Platelet mean volume (Bld) [Entitic vol] 8.2 fL Normal 7.4-10.4 [facility] ([place]) Comment on above: Performed By: #### C ERICA, AZUL, LAMBERT, ADIFF, GFR, BMP, ALC #### [address] [address] RBC 4.42 10 6/mcL Normal 4.20-5.40 [facility] ([place]) Comment on above: Performed By: #### C ERICA, AZUL, LAMBERT, ADIFF, GFR, BMP, ALC #### [address] [address] WBC 9.7 10 3/mcL Normal 4.6-10.8 [facility] ([place]) Comment on above: Performed By: #### C ERICA, AZUL, LAMBERT, ADIFF, GFR, BMP, ALC #### [address] [address] CBC W Auto Differential pane l (Bld)Ordered By: Cherie Fritz on 11-19-2022 Basophils (Bld) [#/Vol] 0.1 10*3/uL 0.0 - 0.2 10*3/uL [facility] Basophils/100 WBC (Bld) 0.6 % 0.0 - 2.0 % [facility] Eosinophils (Bld) [#/Vol] 0.0 10*3/uL 0.0 - 0.5 10*3/uL [facility] Eosinophils/100 WBC (Bld) 0.3 % Low 1.0 - 6.0 % [facility] Erythrocyte distribution width (RBC) [Ratio] 12.6 % 11.5 - 14.5 % [facility] Hematocrit (Bld) [Volume fraction] 41.7 % 35.0 - 47.0 % [facility] Hemoglobin (Bld) [Mass/Vol] 14.2 g/dL 11.7 - 16.0 g/dL [facility] Interpretation and review of laboratory results Abnormal [facility] Lymphocytes (Bld) [#/Vol] 3.5 10*3/uL 1.0 - 4.3 10*3/uL [facility] Lymphocytes/100 WBC (Bld) 35.1 % 20.0 - 40.0 % [facility] MCH (RBC) [Entitic mass] 31.2 pg 26.0 - 34.0 pg [facility] MCHC (RBC) [Mass/Vol] 34.1 % 32.0 - 36.0 % [facility] MCV (RBC) [Entitic vol] 91.7 fL 80.0 - 98.0 fL [facility] Monocytes (Bld) [#/Vol] 0.7 10*3/uL 0.0 - 0.8 10*3/uL [facility] Monocytes/100 WBC (Bld) 7.1 % 2.0 - 10.0 % [facility] Neutrophils (Bld) [#/Vol] 5.8 10*3/uL 1.8 - 7.0 10*3/uL [facility] Neutrophils/100 WBC (Bld) 56.9 % 40.0 - 80.0 % [facility] Nucleated RBC/100 WBC (Bld) [Ratio] 0.1 % [facility] Platelet mean volume (Bld) [Entitic vol] 8.7 fL 7.4 - 12.4 fL [facility] Platelets (Bld) [#/Vol] 283 10*3/uL 140 - 440 10*3/uL [facility] RBC (Bld) [#/Vol] 4.55 10*6/uL 3.8 - 5.20 10*6/uL [facility] WBC (Bld) [#/Vol] 10.1 10*3/uL 3.6 - 10.7 10*3/uL [facility] [id number] 11-19-2022 SARS-CoV-2 (COVID-19) RNA AD+probe Ql (Unsp spec) Negative Normal Negative [facility] ([place]) Comment on above: Performed By: #### C OVD19 #### [address] [address] SARS-CoV-2 (COVID-19) RNA AD+probe Ql (Unsp spec) Normal [facility] ([place]) Comment on above: Result Comment: Nega tive results do not preclude SARS-CoV-2 infection and should not be used as the sole basis for patient management decisions. Negative results must be combined with clinical observations, patient history, and epidemiological information. There is a risk of false negative values resulting from improperly collected, transported, or handled specimens. There is a risk of false negative values due to the presence of sequence variants in the pathogen targets of the assay, procedural errors, amplification inhibitors in specimens, or inadequate numbers of organisms for amplification. [employer] SARS-CoV-2 Assay is a Real-Time reverse-transcriptase polymerase chain reaction (RT-PCR) based qualitative in vitro diagnostic test intended for the qualitative detection of nucleic acid from the SARS-CoV-2 in nasopharyngeal swab specimens collected from individuals suspected of COVID-19 by their healthcare provider. Testing is limited to laboratories certified under the Clinical Laboratory Improvement Amendments of 1988 (CLIA), 42 U.S.C. ?263a, to perform moderate and high complexity tests. COVID-19 Int Performed By: #### C OVD19 #### [address] [address] Comprehensive metabolic 1998 panelon 11-19-2022 Albumin [Mass/Vol] 5.0 g/dL 3.5 - 5.0 g/dL [facility] ALP [Catalytic activity/Vol] 66 U/L 38 - 126 U/L [facility] ALT [Catalytic activity/Vol] 21 U/L 0 - 34 U/L [facility] Anion gap [Moles/Vol] 13 mmol/L 3 - 13 mmol/L [facility] AST [Catalytic activity/Vol] 28 U/L 15 - 46 U/L [facility] Bilirubin [Mass/Vol] 0.7 mg/dL 0.2 - 1 .3 mg/dL [facility] Calcium [Mass/Vol] 8.9 mg/dL 8.4 - 10. 4 mg/dL [facility] Chloride [Moles/Vol] 104 mmol/L 98 - 10 7 mmol/L [facility] CO2 [Moles/Vol] 20 mmol/L Low 22 - 30 mmol/L [facility] Creatinine [Mass/Vol] 0.80 mg/dL 0.52 - 1.04 mg/dL [facility] GFR/1.73 sq M.predicted MDRD (S/P/Bld) [Vol rate/Area] - PINF [facility] Comment on above: Calculation based on the Chronic Kidney Disease Epidemiology Collaboration (CKD-EPI) equation refit without adjustment for race Glucose [Mass/Vol] 109 mg/dL High 70 - 100 mg/dL [facility] Interpretation and review of laboratory results Abnormal [facility] Potassium [Moles/Vol] 3.7 mmol/L 3.5 - 5.1 mmol/L [facility] Protein [Mass/Vol] 7.9 g/dL 6.3 - 8.2 g/dL [facility] Sodium [Moles/Vol] 136 mmol/L 135 - 145 mmol/L [facility] Urea nitrogen [Mass/Vol] 13 mg/dL 7 - 17 mg/dL [facility] ED Nursing Noteon 11-19-2022 ED Nursing Note EKG at patient bedside Frances Parks, EMT 11/19/222155 [facility] ED Nursing Note Registration at patient bedside Frances Parks, EMT 11/19/222155 [facility] ED Nursing Note Registration at patient bedside [facility] Parks, EMT 11/19/222135 [facility] ED Nursing Note [facility] Dar[facility] 11/19/222131 [facility] ED Nursing Note Physician at patient bedside [facility] Jai Parks, EMT 11/19/222115 [facility] ED Nursing Note Pt changed into gowns. Protective Services secured pt's belongings. Pt was wanded. Cinthia Angulo RN 11/19/222110 [facility] ED Provider Noteon ED Provider Note EMERGENCY DEPARTMENT ENCOUNTER Pt Name: Smita Lebron Birthdate 1995 Date of evaluation: 11/19/2022 ED Provider: YULIA DONALD MD CHIEF COMPLAINT Chief Complaint Patient presents with ? Homicidal Pt reports intrusive homicidal thoughts. She has had recent medication changes and her provider believes the thoughts are related to med adjustment. Pt denies SI or intent to act on her thoughts. Pt was seen for same last night. HISTORY OF PRESENT ILLNESS (Location/Symptom, Timing/Onset, Context/Setting, Quality, Duration, Modifying Factors, Severity) Note limiting factors. I wore appropriate PPE for the entirety of this encounter. HPI Smita Lebron is a 27 y.o. female who presents to the emergency department for evaluation of homicidal thoughts. Patient states that she is on Zoloft and her medication was increased from 10 mg to 20 mg back in May and since that time she has had increasingly progressive intrusive homicidal thoughts of stabbing people. Patient states these thoughts have increased in frequency and insistence. Patient states that she was seen at [place] last night for similar issues and was ultimately discharged. Patient denies history of suicidal or homicidal attempts. States that she does not have firearms in the house and after last night all of the knives in her house have been hidden or removed. Patient states that she has significant anxiety around these thoughts, does note that she has an appointment with her psychiatrist on Sunday but currently at this time feels like she needs more help due to her level of anxiety and homicidal thoughts. Patient denies suicidal ideations, visual or auditory hallucinations, chest pain, shortness of breath or other medical complaints. Nursing Notes were reviewed. Limitations to history: None Outside historians: None REVIEW OF SYSTEMS Review of Systems as documented in HPI above. PAST MEDICAL HISTORY No past medical history on file. SURGICAL HISTORY No past surgical history on file. CURRENT MEDICATIONS Discharge Medication List as of 11/20/2022 1:37 AM CONTINUE these medications which have NOT CHANGED Details ALPRAZolam (Xanax) 1 MG tablet Take by mouth., Starting Sun06/09/2022, Historical Med busPIRone (Buspar) 15 MG tablet Take 15 mg by mouth in the morning and 15 mg in the evening., Starting Sun08/23/2022, Until Sun11/21/2022, Historical Med cyclobenzaprine (Flexeril) 10 MG tablet Take by mouth., Starting Sun06/09/2022, Historical Med escitalopram (Lexapro) 20 MG tablet Take 20 mg by mouth in the morning., Starting Sun08/23/2022, Until Sun11/21/2022, Historical Med progesterone (Prometrium) 100 MG capsule Take 300 mg by mouth in the morning., Starting Lynnette 09/21/2022, Historical Med B Complex-C (b complex-vitamin c) tablet Take 1 tablet by mouth daily., Historical Med Cholecalciferol (Vitamin D) 125 MCG (5000 UT) capsule Take by mouth., Historical Med LORazepam (Ativan) 1 MG tablet Take 1 mg by mouth every 8 hours as needed for anxiety. 1-2 tabs Po q8 prn, Historical Med magnesium 500 MG tablet Take by mouth., Historical Med MV-Min-Fe Fum-FA-DHA ( 1 PO) Take by mouth., Historical Med ALLERGIES Patient has no allergy information on record. FAMILY HISTORY No family history on file. SOCIAL HISTORY Social History Socioeconomic History ? Marital status: SCREENINGS PHYSICAL EXAM ED Triage Vitals [11/19/22 2100] Temp Heart Rate Resp BP 36.6 ?C (97.9 ?F) 107 -- (!) 143/102 SpO2 Temp Source Heart Rate Source Patient Position 100 % Temporal Monitor -- BP Location FiO2 (%) -- -- Physical Exam General: Lying in bed, appears anxious but nontoxic. Head: Atraumatic, normocephalic. Eyes: Sclera anicteric. PERRL, EOMI ENT: Mucous membranes moist. Heart: Regular rate and regular rhythm. Radial pulses intact and equal bilaterally Lungs: Clear to auscultation bilaterally. Normal respiratory pattern without conversational dyspnea or respiratory distress. Abdomen: Soft, non-tender, non-distended, no guarding or peritoneal signs. Neurologic: Awake and alert, normal speech and mental status. Moves all extremities equally well. No focal deficits or lateralizing signs. Psychiatric: Tearful and anxious Skin: Warm and dry, no appreciable rash. Musculoskeletal: Normal bulk and tone without evidence of trauma. No peripheral edema. No signs of DVT. Normal exam DIAGNOSTIC RESULTS RADIOLOGY (Per Emergency Physician): Interpretation per the Radiologist below, if available at the time of this note: No orders to display LABS: Labs Reviewed COMPLETE URINALYSIS - Abnormal Result Value Color, Urine Light Yellow Clarity, Urine Clear pH, Urine 6.5 Leukocytes, Urine Negative Nitrite, Urine Negative Protein, Urine Negative Glucose, Urine Normal Bilirubin, Urine Negative Ketones, Urine 100 (*) Urobilinogen, Urine Normal Blood, Urine (more content not included)... Normal [facility] ED Provider Note Emergency Department Encounter [facility] EMERGENCY DEPT Patient: Smita Lebron : 1995 Date of Evaluation: 11/19/2022 ED Supervising Physician: LUKAS DARLING MD I independently examined and evaluated Smita Lebron. This will serve as my Supervisory note and shared attestation. I did perform a substantive portion of the visit including all aspects of the Medical Decision Making. I wore appropriate PPE for the entirety of this encounter. History: In brief, Smita Lebron is a 27 y.o. female that presents to the emergency department complaining of continuing to have intrusive thoughts. She states that these intrusive thoughts are primarily to hurt people. She states that it is unclear who she would hurt. She states that she has had thoughts of stabbing people with knives. She notes that her mother removed all the knives in her house. She notes that she has had medication changes. She had been on Lexapro 20 mg daily. Its been taken down to 10 mg daily. I asked her when that dose was changed and she stated in May,. She notes that she had been on Xanax at times as well as Ativan. She denies any suicidal ideation. Focused exam: On examination the patient is a young female found lying on a cart. She is alert and oriented. She answers questions appropriately. She appears to be anxious. She demonstrates pressured speech but there is no flight of ideas. Oropharynx is clear. Chest is clear. Normal cardiac exam. Abdomen is soft flat and is nontender. Bowel sounds are normal active. Differential Diagnosis: Differential diagnosis includes depression with suicidal ideation, untoward effect of medication. Diagnostic testing undertaken, as well as those tests considered but not ordered: Medical screening laboratory work will be obtained. We will ask psychiatry to evaluate the patient. ED testing and evaluation will be obtained to help differentiate these diagnostic possibilities and determine the most likely cause. Brief ED course/MDM: We will ask psychiatry to evaluate the patient. Sources of History: I evaluated other historical sources including previous outpatient records and admission records. Patient is aware of care plan. All diagnostic, treatment, and disposition decisions were made by myself in conjunction with the Resident. I also supervised hunter portions of any procedures performed by the Resident. For all further details of the patient's emergency department visit, please see their documentation. (Comment: Please note this report has been produced using speech recognition software and may contain errors related to that system including errors in grammar, punctuation, and spelling, as well as words and phrases that may be inappropriate. If there are any questions or concerns please feel free to contact the dictating provider for clarification.) LUKAS DARLING MD Acute Care [facility] Lukas Darling MD 11/19/222138 Normal [facility] Ethanol (Bld) [Mass/Vol]on 0 11-19-2022 Ethanol [Mass/Vol] g/dL 0.000 - 0 .010 g/dL [facility] Interpretation and review of laboratory results Normal [facility] - Chemistry and C hemistry - challengeOrdered By: Zoë Post on 11-19-2022 Beta HCG ( test) Ql Negative Negative [facility] Comment on above: Please note: Very di lute urine specimens, as indicated by a low specific gravity, may not contain junior sales representative levels of hCG. If is still suspected, a first morning urine specimen should be collected 48 hours later and tested. Beta HCG ( test) Ql (U) is the most common reason for HCG in urine, although choriocarcinoma, hydatidiform mole, and certain nontrophoblastic malignancies also result in detectable urinary HCG levels. Sensitivity = 20mIU/mL. [facility] - Microbiology an d Antimicrobial susceptibilityOrdered By: Bryanna Velasquez on 11-19-2022 SARS-CoV-2 (COVID-19) Ag IA.rapid Ql (Resp) Negative Negative [facility] Comment on above: A negative result do es not rule out the possibility of SARS-CoV-2 infection. NAAT-based methods should be considered for symptomatic patients presenting greater than seven days after onset of symptoms. Method: Lateral flow immunoassay. Fact sheets for healthcare providers and patients can be found at the following sites: https://www.fda.gov/media/551916/download https://www.fda.gov/media/258714/download No Panel InformationOrdered By: Zoë Post on 11-19-2022 [facility] No Panel Informationon 11-19 P Cameron 9 degrees [facility] SC Interval 135 ms [facility] QRS [place] 64 degrees [facility] QRSD Interval 81 ms [facility] QT Interval 352 ms [facility] QTC Interval 446 ms [facility] T Wave Cameron -21 degrees [facility] Sinus rhythm Electronically Signed On 11-19-2022 23:58:23 EDT by Lukas Darling CV Lukas Mccormack MD - 11/19/2022 IMPRESSION: Sinus rhythm Electronically Signed On 11-19-2022 23:58:23 EDT by Lukas Darling [facility] PREGUon 11-19-2022 HCG ( test) Ql (U) Negative Normal [facility] ([place]) Comment on above: Performed By: #### T OXSC, PREGU #### [place] [address] [address] test (u) int Not detected Invalid Interpretation Code [facility] ([place]) Comment on above: Performed By: #### T OXSC, PREGU #### [place] [address] [address] SARS-CoV-2 (COVID-19) Ag IA. rapid Ql (Resp)Ordered By: Bryanna Velasquez on 11-19-2022 Interpretation and review of laboratory results Normal [facility] TOXSCon 11-19-2022 U Ampheta (AO) Negative Normal [facility] ([place]) Comment on above: Performed By: #### T OXSC, PREGU #### [place] [address] [address] U Sophia (AO) Negative Normal [facility] ([place]) Comment on above: Performed By: #### T OXSC, PREGU #### [place] [address] [address] U Raymond (AO) Positive Normal [facility] ([place]) Comment on above: Performed By: #### T OXSC, PREGU #### [place] [address] [address] U Cannab (AO) Negative Normal [facility] ([place]) Comment on above: Performed By: #### T OXSC, PREGU #### [place] [address] [address] U Cocaine (AO) Negative Normal [facility] ([place]) Comment on above: Performed By: #### T OXSC, PREGU #### [place] [address] [address] U Methadone (AO) Negative Normal [facility] ([place]) Comment on above: Performed By: #### T OXSC, PREGU #### [facility] [place] [address] [place] [id number] U PCP (AO) Negative Normal [facility] ([place]) Comment on above: Performed By: #### T OXSC, PREGU #### [place] [address] [address] U TCA (AO) Positive Normal [facility] ([place]) Comment on above: Performed By: #### T OXSC, PREGU #### [place] [address] [address] Urine Opiates (AO) Negative Normal [facility] ([place]) Comment on above: Performed By: #### T OXSC, PREGU #### [address] [address] Urinalysis complete panel (U )Ordered By: Blanche Moody on 11-19-2022 Bilirubin Ql (U) Negative Negative mg/dL [facility] Clarity (U) Clear Clear [facility] Color (U) Light Yellow Lt. Yellow [facility] Glucose Ql (U) Normal Normal (<70) mg/dL [facility] Hemoglobin Ql (U) Negative Negative mg/dL [facility] Interpretation and review of laboratory results Abnormal [facility] Ketones (U) [Mass/Vol] 100 mg/dL Abnormal Negative [facility] Leukocyte esterase Test strip Ql (U) Negative Negative Skip/uL [facility] Nitrite Ql (U) Negative Negative [facility] th pH (U) 6.5 [pH] 5.0 - 8.0 pH [facility] Protein (U) [Mass/Vol] Negative Negative mg/d L [facility] Specific gravity (U) [Rel density] 1.020 1.005 - 1.030 [facility] Urobilinogen (U) [Mass/Vol] Normal Normal (0-1) mg/dL [facility] Vital signson 11-19-2022 Heart rate 96 /min bpm [facility] LABORATORYOrdered By: Javier Collins on 11-18-2022 Amphetamines Screen Ql (U) Negative (11/18/22 11:46 PM) Invalid Interpretation Code AO Manual Urine SS Barbiturates Screen Ql (U) Negative (11/18/22 11:46 PM) Invalid Interpretation Code AO Manual Urine SS Benzodiazepines Ql (U) Positive (11/18/22 11:46 PM) Invalid Interpretation Code AO Manual Urine SS Benzoylecgonine Screen Ql (U) Negative (11/18/22 11:46 PM) Invalid Interpretation Code AO Manual Urine SS Cannabinoids tested Screen Nom (U) Negative (11/18/22 11:46 PM) Invalid Interpretation Code AO Manual Urine SS HCG ( test) Ql Negative (11/18/22 11:46 PM) Invalid Interpretation Code AO Manual Urine SS Methadone Screen Ql (U) Negative (11/18/22 11:46 PM) Invalid Interpretation Code AO Manual Urine SS Opiates Screen Ql (U) Negative (11/18/22 11:46 PM) Invalid Interpretation Code AO Manual Urine SS Phencyclidine Ql (U) Negative (11/18/22 11:46 PM) Invalid Interpretation Code AO Manual Urine SS test (u) int Not detected Invalid Interpretation Code AO Manual Urine SS SARS-CoV-2 (COVID-19) RNA AD+probe Ql (Resp) Negative results do not preclude SARS-CoV-2 infection and should not be used as the sole basis for patient management decisions. Negative results must be combined with clinical observations, patient history, and epidemiological information.There is a risk of false negative values resulting from improperly collected, transported, or handled specimens.There is a risk of false negative values due to the presence of sequence variants in the pathogen targets of the assay, procedural errors, amplification inhibitors in specimens, or inadequate numbers of organisms for amplification.MORRIS S SARS-CoV-2 Assay is a Real-Time reverse-transcript ase polymerase chain reaction (RT-PCR) based qualitative in vitro diagnostic test intended for the qualitative detection of nucleic acid from the SARS-CoV-2 in nasopharyngeal swab specimens collected from individuals suspected of COVID-19 by their healthcare provider. Testing is limited to laboratories certified under the Clinical Laboratory Improvement Amendments of 1988 (CLIA), 42 U.S.C. 263a, to perform moderate and high complexity tests. Invalid Interpretation Code AO Auto Urine SS Tricyclic antidepressants Screen Ql (U) Positive (11/18/22 11:46 PM) Invalid Interpretation Code AO Manual Urine SS LABORATORYOrdered By: SYSTEM SYSTEM on 11-18-2022 Basophil, Absolute 0.1 103/mcL Invalid Interpretation Code 0.0 - 0.2 10^3/mcL AO Workflow SS Basophils/100 WBC (Bld) 0.6 % Invalid Interpretation Code 0.0 - 2.5 % AO Workflow SS Calcium [Mass/Vol] 9.2 mg/dL Invalid Interpretation Code 8.4 - 10.2 mg/dL AO ADM SS Chloride [Moles/Vol] 101 mmol/L Invalid Interpretation Code 98 - 107 mmol/L AO ADM SS CO2 [Moles/Vol] 28 mmol/L Invalid Interpretation Code 22 - 29 mmol/L AO ADM SS Creatinine [Mass/Vol] 1.01 mg/dL Invalid Interpretation Code 0.55 - 1.02 mg/dL AO ADM SS Electrolyte Balance 9.0 mEq/L Invalid Interpretation Code 4.0 - 15.0 mEq/L AO ADM SS Eosinophil, Absolute 0.1 103/mcL Invalid Interpretation Code 0.0 - 0.4 10^3/mcL AO Workflow SS Eosinophils/100 WBC (Bld) 0.6 % Invalid Interpretation Code 0.0 - 7.0 % AO Workflow SS Erythrocyte distribution width (RBC) [Ratio] 12.6 % Invalid Interpretation Code 11.5 - 14.5 % AO Workflow SS Ethanol [Mass/Vol] mg/dL Invalid Interpretation Code 0 - 3 mg/dL AO ADM SS GFR/1.73 sq M.predicted among blacks MDRD (S/P/Bld) [Vol rate/Area] 79 ml/min/1.73sqm Invalid Interpretation Code AO Chemistry S Comment on above: Interpretive Data: GFR Population mean for , Non- Americans Ages 20-29 = 116 mL/min/1.73 sq.m. Ages 30-39 = 107 mL/min/1.73 sq.m. Ages 40-49 = 99 mL/min/1.73 sq.m. Ages 50-59 = 93 mL/min/1.73 sq.m. Ages 60-69 = 85 mL/min/1.73 sq.m. Ages 70+ = 75 mL/min/1.73 sq.m. Chronic Kidney Disease: Less than 60 mL/min/1.73 square meters End Stage Renal Disease: Less than 15 mL/min/1.73 square meters GFR/1.73 sq M.predicted among non-blacks MDRD (S/P/Bld) [Vol rate/Area] 65 ml/min/1.73sqm Invalid Interpretation Code AO Chemistry S Comment on above: Interpretive Data: GFR Population mean for , Non- Americans Ages 20-29 = 116 mL/min/1.73 sq.m. Ages 30-39 = 107 mL/min/1.73 sq.m. Ages 40-49 = 99 mL/min/1.73 sq.m. Ages 50-59 = 93 mL/min/1.73 sq.m. Ages 60-69 = 85 mL/min/1.73 sq.m. Ages 70+ = 75 mL/min/1.73 sq.m. Chronic Kidney Disease: Less than 60 mL/min/1.73 square meters End Stage Renal Disease: Less than 15 mL/min/1.73 square meters Glucose [Mass/Vol] 102 mg/dL Invalid Interpretation Code 70 - 105 mg/dL AO ADM SS Hematocrit (Bld) [Volume fraction] 39.0 % Invalid Interpretation Code 37.0 - 47.0 % AO Workflow SS Hemoglobin (Bld) [Mass/Vol] 13.8 G/dL Invalid Interpretation Code 12.0 - 16.0 G/dL AO Workflow SS Lymphocyte, Absolute 3.1 103/mcL Invalid Interpretation Code 0.8 - 3.9 10^3/mcL AO Workflow SS Lymphocytes/100 WBC (Bld) 32.1 % Invalid Interpretation Code 10.0 - 50.0 % AO Workflow SS MCH (RBC) [Entitic mass] 31.2 pg Invalid Interpretation Code 27.0 - 31.2 pg AO Workflow SS MCHC 35.4 G/dL Invalid Interpretation Code 33.0 - 37.0 G/dL AO Workflow SS MCV (RBC) [Entitic vol] 88.2 fL Invalid Interpretation Code 80.0 - 94.0 fL AO Workflow SS Monocyte distribution width Auto (Bld) [Entitic vol] 16.13 1 Invalid Interpretation Code 0.00 - 20.00 AO Workflow SS Comment on above: Result Comment: For ED adult patients suspected of sepsis, MDW<=20.0 does not rule out sepsis or risk of sepsis Monocyte, Absolute 0.8 103/mcL Invalid Interpretation Code 0.2 - 1.0 10^3/mcL AO Workflow SS Monocytes/100 WBC (Bld) 8.5 % Invalid Interpretation Code 1.7 - 13.0 % AO Workflow SS Neutrophil, Absolute 5.6 103/mcL Invalid Interpretation Code 2.9 - 6.2 10^3/mcL AO Workflow SS Neutrophils/100 WBC (Bld) 58.2 % Invalid Interpretation Code 37.0 - 80.0 % AO Workflow SS Platelet mean volume (Bld) [Entitic vol] 8.2 fL Invalid Interpretation Code 7.4 - 10.4 fL AO Workflow SS Platelets (Bld) [#/Vol] 274 103/mcL Invalid Interpretation Code 130 - 400 10^3/mcL AO Workflow SS Potassium [Moles/Vol] 3.4 mmol/L Invalid Interpretation Code 3.5 - 5.1 mmol/L AO ADM SS RBC (Bld) [#/Vol] 4.42 106/mcL Invalid Interpretation Code 4.20 - 5.40 10^6/mcL AO Workflow SS Sodium [Moles/Vol] 138 mmol/L Invalid Interpretation Code 136 - 145 mmol/L AO ADM SS Urea nitrogen [Mass/Vol] 14 mg/dL Invalid Interpretation Code 7 - 18 mg/dL AO ADM SS Urea nitrogen/Creatinine [Mass ratio] 14 ratio Invalid Interpretation Code 7 - 27 ratio AO ADM SS WBC (Bld) [#/Vol] 9.7 103/mcL Invalid Interpretation Code 4.6 - 10.8 10^3/mcL AO Workflow SS .GFRon 06-30-2022 GFR 81 ml/min/1.73sqm Normal [facility] ([place]) Comment on above: Result Comment: GFR Population mean for , Non- Americans Ages 20-29 = 116 mL/min/1.73 sq.m. Ages 30-39 = 107 mL/min/1.73 sq.m. Ages 40-49 = 99 mL/min/1.73 sq.m. Ages 50-59 = 93 mL/min/1.73 sq.m. Ages 60-69 = 85 mL/min/1.73 sq.m. Ages 70+ = 75 mL/min/1.73 sq.m. Chronic Kidney Disease: Less than 60 mL/min/1.73 square meters End Stage Renal Disease: Less than 15 mL/min/1.73 square meters Performed By: #### G FR, LIPID, CMP #### [address] [address] GFR Non- 67 ml/min/1.73sqm Normal [facility] ([place]) Comment on above: Result Comment: GFR Population mean for , Non- Americans Ages 20-29 = 116 mL/min/1.73 sq.m. Ages 30-39 = 107 mL/min/1.73 sq.m. Ages 40-49 = 99 mL/min/1.73 sq.m. Ages 50-59 = 93 mL/min/1.73 sq.m. Ages 60-69 = 85 mL/min/1.73 sq.m. Ages 70+ = 75 mL/min/1.73 sq.m. Chronic Kidney Disease: Less than 60 mL/min/1.73 square meters End Stage Renal Disease: Less than 15 mL/min/1.73 square meters Performed By: #### G FR, LIPID, CMP #### [address] [address] CMPon 06-30-2022 Albumin Level 4.1 G/dL Normal 3.5-5.0 [facility] ([place]) Comment on above: Performed By: #### G FR, LIPID, CMP #### [address] [address] Albumin/Globulin [Mass ratio] 1.4 {ratio} Normal 1.1-2.5 [facility] ([place]) Comment on above: Performed By: #### G FR, LIPID, CMP #### [address] [address] ALP [Catalytic activity/Vol] 73 U/L Normal 40-135 [facility] ([place]) Comment on above: Performed By: #### G FR, LIPID, CMP #### [address] [address] ALT [Catalytic activity/Vol] 25 U/L Normal 14-59 [facility] ([place]) Comment on above: Performed By: #### G FR, LIPID, CMP #### [address] [address] AST [Catalytic activity/Vol] 18 U/L Normal 10-40 [facility] ([place]) Comment on above: Performed By: #### G FR, LIPID, CMP #### [address] [address] Bili Total 0.6 mg/dL Normal 0.2-1.0 [facility] ([place]) Comment on above: Result Comment: Use of this assay is not recommended for patients undergoing treatment with eltrombopag due to the potential for falsely elevated results. Performed By: #### G FR, LIPID, CMP #### [place] [id number] BUN/Creatinine Ratio 12 ratio Normal 7-27 [facility] ([place]) Comment on above: Performed By: #### G FR, LIPID, CMP #### [address] [address] Calcium [Mass/Vol] 8.9 mg/dL Normal 8.4-10.2 [facility] ([place]) Comment on above: Performed By: #### G FR, LIPID, CMP #### [address] [address] Chloride [Moles/Vol] 102 mmol/L Normal 98-107 [facility] ([place]) Comment on above: Performed By: #### G FR, LIPID, CMP #### [address] [address] CO2 [Moles/Vol] 31 mmol/L High 22-29 [facility] ([place]) Comment on above: Performed By: #### G FR, LIPID, CMP #### [address] [address] Creatinine [Mass/Vol] 0.98 mg/dL Normal 0.55-1.02 [facility] ([place]) Comment on above: Performed By: #### G FR, LIPID, CMP #### [address] [address] Electrolyte Balance 7.0 mEq/L Normal 4.0-15.0 [facility] ([place]) Comment on above: Performed By: #### G FR, LIPID, CMP #### [address] [address] Globulin 2.9 G/dL Normal [facility] ([place]) Comment on above: Performed By: #### G FR, LIPID, CMP #### [address] [address] Glucose [Mass/Vol] 88 mg/dL Normal 70-105 [facility] ([place]) Comment on above: Performed By: #### G FR, LIPID, CMP #### [address] [address] Potassium [Moles/Vol] 4.6 mmol/L Normal 3.5-5.1 [facility] ([place]) Comment on above: Performed By: #### G FR, LIPID, CMP #### [address] [address] Sodium [Moles/Vol] 140 mmol/L Normal 136-145 [facility] ([place]) Comment on above: Performed By: #### G FR, LIPID, CMP #### [address] [address] Total Protein 7.0 G/dL Normal 6.4-8.2 [facility] ([place]) Comment on above: Performed By: #### G FR, LIPID, CMP #### [address] [address] Urea nitrogen [Mass/Vol] 12 mg/dL Normal 7-18 [facility] ([place]) Comment on above: Performed By: #### G FR, LIPID, CMP #### [address] [address] LABORATORYOrdered By: SYSTEM SYSTEM on 06-30-2022 Albumin BCP dye [Mass/Vol] 4.1 G/dL Invalid Interpretation Code 3.5 - 5.0 G/dL AO ADM SS Albumin/Globulin [Mass ratio] 1.4 {ratio} Invalid Interpretation Code 1.1 - 2.5 ratio AO ADM SS ALP [Catalytic activity/Vol] 73 U/L Invalid Interpretation Code 40 - 135 U/L AO ADM SS ALT With P-5'-P [Catalytic activity/Vol] 25 U/L Invalid Interpretation Code 14 - 59 U/L AO ADM SS AST With P-5'-P [Catalytic activity/Vol] 18 U/L Invalid Interpretation Code 10 - 40 U/L AO ADM SS Bilirubin [Mass/Vol] 0.6 mg/dL Invalid Interpretation Code 0.2 - 1.0 mg/dL AO ADM SS Calcium [Mass/Vol] 8.9 mg/dL Invalid Interpretation Code 8.4 - 10.2 mg/dL AO ADM SS Chloride [Moles/Vol] 102 mmol/L Invalid Interpretation Code 98 - 107 mmol/L AO ADM SS CO2 [Moles/Vol] 31 mmol/L Invalid Interpretation Code 22 - 29 mmol/L AO ADM SS Creatinine [Mass/Vol] 0.98 mg/dL Invalid Interpretation Code 0.55 - 1.02 mg/dL AO ADM SS Electrolyte Balance 7.0 mEq/L Invalid Interpretation Code 4.0 - 15.0 mEq/L AO ADM SS GFR 81 ml/min/1.73sqm Invalid Interpretation Code AO Chemistry S GFR Non- 67 ml/min/1.73sqm Invalid Interpretation Code AO Chemistry S Globulin 2.9 G/dL Invalid Interpretation Code AO ADM SS Glucose [Mass/Vol] 88 mg/dL Invalid Interpretation Code 70 - 105 mg/dL AO ADM SS Potassium [Moles/Vol] 4.6 mmol/L Invalid Interpretation Code 3.5 - 5.1 mmol/L AO ADM SS Protein [Mass/Vol] 7.0 G/dL Invalid Interpretation Code 6.4 - 8.2 G/dL AO ADM SS Sodium [Moles/Vol] 140 mmol/L Invalid Interpretation Code 136 - 145 mmol/L AO ADM SS Urea nitrogen [Mass/Vol] 12 mg/dL Invalid Interpretation Code 7 - 18 mg/dL AO ADM SS Urea nitrogen/Creatinine [Mass ratio] 12 ratio Invalid Interpretation Code 7 - 27 ratio AO ADM SS LABORATORYOrdered By: Arlene Grace on 06-30-2022 Cholesterol [Mass/Vol] 237 mg/dL Invalid Interpretation Code 0 - 200 mg/dL AO ADM SS Cholesterol in HDL [Mass/Vol] 82 mg/dL Invalid Interpretation Code 40 - 60 mg/dL AO ADM SS Cholesterol in LDL [Mass/Vol] 150 mg/dL Invalid Interpretation Code 0 - 130 mg/dL AO ADM SS Triglyceride [Mass/Vol] 26 mg/dL Invalid Interpretation Code 0 - 150 mg/dL AO ADM SS LIPIDon 06-30-2022 Cholesterol [Mass/Vol] 237 mg/dL High 0-200 [facility] ([place]) Comment on above: Result Comment: Chol esterol Reference Interval: Less than 200 Desirable 200-239 Borderline high risk 240 and above High risk Performed By: #### G FR, LIPID, CMP #### [address] [address] Cholesterol in HDL [Mass/Vol] 82 mg/dL High 40-60 [facility] ([place]) Comment on above: Performed By: #### G FR, LIPID, CMP #### [address] [address] Cholesterol in LDL [Mass/Vol] 150 mg/dL High 0-130 [facility] ([place]) Comment on above: Performed By: #### G FR, LIPID, CMP #### [address] [address] Triglyceride [Mass/Vol] 26 mg/dL Normal 0-150 A [facility] ([place]) Comment on above: Result Comment: Trig lyceride Reference Interval: Less than 150 Normal 150-199 Borderline high risk 200-499 High risk 500 or higher Very high risk Performed By: #### G FR, LIPID, CMP #### [address] [address] .Auto Diffon 06-09-2022 Basophil, Absolute 0.1 10 3/mcL Normal 0.0-0.2 [facility] ([place]) Comment on above: Performed By: #### G FR, LIPID, CMP #### [address] [address] Basophils/100 WBC (Bld) 0.8 % Normal 0.0-2.5 A [facility] ([place]) Comment on above: Performed By: #### G FR, LIPID, CMP #### [address] [address] Eosinophil, Absolute 0.1 10 3/mcL Normal 0.0-0.4 [facility] ([place]) Comment on above: Performed By: #### G FR, LIPID, CMP #### [address] [address] Eosinophils/100 WBC (Bld) 1.5 % Normal 0.0-7.0 [facility] ([place]) Comment on above: Performed By: #### G FR, LIPID, CMP #### [address] [address] Lymphocyte, Absolute 2.3 10 3/mcL Normal 0.8-3.9 [facility] ([place]) Comment on above: Performed By: #### G FR, LIPID, CMP #### [address] [address] Lymphocytes/100 WBC (Bld) 31.4 % Normal 10.0-50.0 [facility] ([place]) Comment on above: Performed By: #### G FR, LIPID, CMP #### [address] [address] Monocyte, Absolute 0.7 10 3/mcL Normal 0.2-1.0 [facility] ([place]) Comment on above: Performed By: #### G FR, LIPID, CMP #### [address] [address] Monocytes/100 WBC (Bld) 9.7 % Normal 1.7-13.0 [facility] ([place]) Comment on above: Performed By: #### G FR, LIPID, CMP #### [address] [address] Neutrophils/100 WBC (Bld) 56.6 % Normal 37.0-80.0 [facility] ([place]) Comment on above: Performed By: #### G FR, LIPID, CMP #### [address] [address] .NEUABSon 06-09-2022 Neutrophil, Absolute 4.2 10 3/mcL Normal 2.9-6.2 [facility] ([place]) Comment on above: Performed By: #### G FR, LIPID, CMP #### [address] [address] CBCon 06-09-2022 Erythrocyte distribution width (RBC) [Ratio] 13.5 % Normal 11.5-14.5 [facility] ([place]) Comment on above: Order Comment: PLEAS E do STAT Performed By: #### G FR, LIPID, CMP #### [place] [address] Hematocrit (Bld) [Volume fraction] 42.8 % Normal 37.0-47.0 [facility] ([place]) Comment on above: Order Comment: PLEAS E do STAT Performed By: #### G FR, LIPID, CMP #### [place] [address] Hgb 14.7 G/dL Normal 12.0-16.0 [facility] ([place]) Comment on above: Order Comment: PLEAS E do STAT Performed By: #### G FR, LIPID, CMP #### [address] [address] MCH (RBC) [Entitic mass] 30.5 pg Normal 27.0-31.2 [facility] ([place]) Comment on above: Order Comment: PLEAS E do STAT Performed By: #### G FR, LIPID, CMP #### [address] [address] MCHC 34.4 G/dL Normal 33.0-37.0 [facility] ([place]) Comment on above: Order Comment: PLEAS E do STAT Performed By: #### G FR, LIPID, CMP #### [address] [address] MCV (RBC) [Entitic vol] 88.6 fL Normal 80.0-94.0 A [facility] ([place]) Comment on above: Order Comment: PLEAS E do STAT Performed By: #### G FR, LIPID, CMP #### [address] [address] Platelet 299 10 3/mcL Normal 130-400 [facility] ([place]) Comment on above: Order Comment: PLEAS E do STAT Performed By: #### G FR, LIPID, CMP #### [address] [address] Platelet mean volume (Bld) [Entitic vol] 8.1 fL Normal 7.4-10.4 [facility] ([place]) Comment on above: Order Comment: PLEAS E do STAT Performed By: #### G FR, LIPID, CMP #### [address] [address] RBC 4.82 10 6/mcL Normal 4.20-5.40 [facility] ([place]) Comment on above: Order Comment: PLEAS E do STAT Performed By: #### G FR, LIPID, CMP #### [address] [address] WBC 7.4 10 3/mcL Normal 4.6-10.8 [facility] ([place]) Comment on above: Order Comment: PLEAS E do STAT Performed By: #### G FR, LIPID, CMP #### [address] [address] LABORATORYOrdered By: Javier Landers on 06-09-2022 Basophil, Absolute 0.1 103/mcL Invalid Interpretation Code 0.0 - 0.2 10^3/mcL AO Workflow SS Basophils/100 WBC (Bld) 0.8 % Invalid Interpretation Code 0.0 - 2.5 % AO Workflow SS Eosinophil, Absolute 0.1 103/mcL Invalid Interpretation Code 0.0 - 0.4 10^3/mcL AO Workflow SS Eosinophils/100 WBC (Bld) 1.5 % Invalid Interpretation Code 0.0 - 7.0 % AO Workflow SS Erythrocyte distribution width (RBC) [Ratio] 13.5 % Invalid Interpretation Code 11.5 - 14.5 % AO Workflow SS Hematocrit (Bld) [Volume fraction] 42.8 % Invalid Interpretation Code 37.0 - 47.0 % AO Workflow SS Hemoglobin (Bld) [Mass/Vol] 14.7 G/dL Invalid Interpretation Code 12.0 - 16.0 G/dL AO Workflow SS Lymphocyte, Absolute 2.3 103/mcL Invalid Interpretation Code 0.8 - 3.9 10^3/mcL AO Workflow SS Lymphocytes/100 WBC (Bld) 31.4 % Invalid Interpretation Code 10.0 - 50.0 % AO Workflow SS MCH (RBC) [Entitic mass] 30.5 pg Invalid Interpretation Code 27.0 - 31.2 pg AO Workflow SS MCHC 34.4 G/dL Invalid Interpretation Code 33.0 - 37.0 G/dL AO Workflow SS MCV (RBC) [Entitic vol] 88.6 fL Invalid Interpretation Code 80.0 - 94.0 fL AO Workflow SS Monocyte, Absolute 0.7 103/mcL Invalid Interpretation Code 0.2 - 1.0 10^3/mcL AO Workflow SS Monocytes/100 WBC (Bld) 9.7 % Invalid Interpretation Code 1.7 - 13.0 % AO Workflow SS Neutrophil, Absolute 4.2 103/mcL Invalid Interpretation Code 2.9 - 6.2 10^3/mcL AO Workflow SS Neutrophils/100 WBC (Bld) 56.6 % Invalid Interpretation Code 37.0 - 80.0 % AO Workflow SS Platelet mean volume (Bld) [Entitic vol] 8.1 fL Invalid Interpretation Code 7.4 - 10.4 fL AO Workflow SS Platelets (Bld) [#/Vol] 299 103/mcL Invalid Interpretation Code 130 - 400 10^3/mcL AO Workflow SS RBC (Bld) [#/Vol] 4.82 106/mcL Invalid Interpretation Code 4.20 - 5.40 10^6/mcL AO Workflow SS WBC (Bld) [#/Vol] 7.4 103/mcL Invalid Interpretation Code 4.6 - 10.8 10^3/mcL AO Workflow SS PELVIC US WHIon 05-09-2022 [facility] Lab Report: Comprehensive Co tabolic Profilon 10-27-2016 Albumin mass conc 4.0 g/dL 3.4-5.0 [facility] Work Phone: Albumin/Globulin mass ratio 1.2 {ratio} 0.9-2.4 [facility] Work Phone: ALP enzyme act/vol (Bld) 88 U/L 45-117 [facility] Work Phone: ALT enzyme act/vol 20 U/L 12-78 [facility] Work Phone: Anion gap molar conc 10 mmol/L 5-[address] [facility] Work Phone: AST enzyme act/vol 19 U/L 15-37 [facility] Work Phone: Bilirubin mass conc 0.70 mg/dL 0.20-1.00 [facility] Work Phone: Calcium mass conc 8.8 mg/dL 8.5-10.1 [facility] Work Phone: Chloride molar conc 105 mmol/L 98-107 [facility] Work Phone: CO2 ppres (BldV) 25.0 mmol/L 21.0-32.0 [facility] Work Phone: Creatinine mass conc 0.82 mg/dL 0.55-1.[address] [facility] Work Phone: EST GFR - AA 110 mL/min >60 [facility] Work Phone: GFR/1.73 sq M predicted among non-blacks MDRD vol rate/area (S/P/Bld) 91 mL/min/{1.73_m2} >60 [facility] Work Phone: Globulin mass conc (S) 3.2 g/dL 2.3-3.5 [facility] Work Phone: Glucose mass conc 82 mg/dL 70-110 [facility] Work Phone: Potassium molar conc 4.0 mmol/L 3.5-5.[address] [facility] Work Phone: Protein mass conc 7.2 g/dL 6.4-8.2 [facility] Work Phone: Sodium molar conc 140 mmol/L 136-145 [facility] Work Phone: Urea nitrogen mass conc 12 mg/dL 7-18 [facility] Work Phone: Urea nitrogen/Creatinine mass ratio 14.6 RATIO 10-20 [facility] Work Phone: Lab Report: Lipid Profileon 10-27-2016 Cholesterol in HDL mass conc 58 mg/dL [facility] Work Phone: Cholesterol in LDL mass conc 85 mg/dL 0-130 [facility] Work Phone: Cholesterol mass conc 152 mg/dL [address] [facility] Work Phone: Lipoprotein.pre-beta mass conc 9 mg/dL 5-40 [facility] Work Phone: Triglyceride mass conc 45 mg/dL [facility] Work Phone: Lab Report: Thyroid Stim Hor diana (TSH)on 10-27-2016 Thyrotropin Qn 1.25 u[iU]/mL 0.358-3.74 [facility] Work Phone: Office Visiton 09-26-2016 Adolescent depression screening assessment Adolescent depression screening assessment Invalid Interpretation Code [facility] Work Phone: Adult depression screening assessment Adult depression screening assessment Invalid Interpretation Code [facility] Work Phone: Adult depression screening assessment Adolescent depression screening assessment [facility] Work Phone: Documentation of current medications (procedure) Done Invalid Interpretation Code [facility] Work Phone: PHQ-9 quick depression assessment panel [Reported.PHQ] Adult depression screening assessment [facility] Work Phone: Protein mass conc Done [facility] Work Phone: Tobacco smoking status NHIS Never [facility] Work Phone: Tobacco smoking status FLIS Never smoker [facility] Work Phone: Tobacco use [facility] Never smoker Invalid Interpretation Code [facility] Work Phone: Vital Signs Date Time Vital Sign Value Performing Clinician Facility 12-10-2024 14:38-0400 Body mass index (BMI) [Ratio] 30.67 kg/m2 Camelia Herrera APRN.CNM Work Phone: [facility] 12-10-2024 14:38-0400 Body weight 86.18 kg Camelia Herrera APRN.CNM Work Phone: [facility] 12-10-2024 14:38-0400 Diastolic blood pressure 60 mm[Hg] Camelia Herrera [employer].CNM Work Phone: [facility] 12-10-2024 14:38-0400 Systolic blood pressure 120 mm[Hg] Camelia Herrera SANDER WOODEN PENCILS.CNM Work Phone: [facility] 11-26-2024 14:40-0400 Body mass index (BMI) [Ratio] 30.21 kg/m2 Hoda Plotts SANDER WOODEN PENCILS.CNM Work Phone: [facility] 11-26-2024 14:40-0400 Body weight 84.91 kg Hoda Choits SANDER WOODEN PENCILS.CNM Work Phone: [facility] 11-26-2024 14:40-0400 Diastolic blood pressure 60 mm[Hg] Hoda Plotts SANDER WOODEN PENCILS.CNM Work Phone: [facility] 11-26-2024 14:40-0400 Systolic blood pressure 106 mm[Hg] Hoda Plotts SANDER WOODEN PENCILS.CNM Work Phone: [facility] 11-12-2024 14:32-0400 Body mass index (BMI) [Ratio] 29.7 kg/m2 Camelia Herrera SANDER WOODEN PENCILS.CNM Work Phone: [facility] 11-12-2024 14:32-0400 Body weight 83.46 kg Camelia Herrera SANDER WOODEN PENCILS.CNM Work Phone: [facility] 11-12-2024 14:32-0400 Diastolic blood pressure 78 mm[Hg] Camelia Herrera SANDER WOODEN PENCILS.CNM Work Phone: [facility] 11-12-2024 14:32-0400 Systolic blood pressure 128 mm[Hg] Camelia Herrera SANDER WOODEN PENCILS.CNM Work Phone: [facility] 10-28-2024 11:13-0400 Body mass index (BMI) [Ratio] 28.89 kg/m2 Laurie Serra SANDER WOODEN PENCILS.STONE BELT SANDER Work Phone: [facility] 10-28-2024 11:13-0400 Body weight 81.19 kg Laurie Serra SANDER WOODEN PENCILS.STONE BELT SANDER Work Phone: [facility] 10-28-2024 11:13-0400 Diastolic blood pressure 66 mm[Hg] Laurie Serra SANDER WOODEN PENCILS.STONE BELT SANDER Work Phone: [facility] 10-28-2024 11:13-0400 Heart rate 70 /min Laurie Serra SANDER WOODEN PENCILS.STONE BELT SANDER Work Phone: [facility] 10-28-2024 11:13-0400 SaO2% (BldA) [Mass fraction] 98 % Laurie Elba SANDER WOODEN PENCILS.STONE BELT SANDER Work Phone: [facility] 10-28-2024 11:13-0400 Systolic blood pressure 113 mm[Hg] Laurie Serra SANDER WOODEN PENCILS.STONE BELT SANDER Work Phone: [facility] 10-22-2024 14:35-0400 Body mass index (BMI) [Ratio] 28.79 kg/m2 Hoda Plotts SANDER WOODEN PENCILS.CNM Work Phone: [facility] 10-22-2024 14:35-0400 Body weight 80.92 kg Hoda Plotts SANDER WOODEN PENCILS.CNM Work Phone: [facility] 10-22-2024 14:35-0400 Diastolic blood pressure 60 mm[Hg] Hoda Plotts SANDER WOODEN PENCILS.CNM Work Phone: [facility] 10-22-2024 14:35-0400 Systolic blood pressure 100 mm[Hg] Hoda Plotts SANDER WOODEN PENCILS.CNM Work Phone: [facility] 10-08-2024 09:16-0400 Body mass index (BMI) [Ratio] 28.25 kg/m2 Hoda Plotts SANDER WOODEN PENCILS.CNM Work Phone: [facility] 10-08-2024 09:16-0400 Body weight 79.38 kg Hoda Plotts SANDER WOODEN PENCILS.CNM Work Phone: [facility] 10-08-2024 09:16-0400 Diastolic blood pressure 60 mm[Hg] Hoda Plotts SANDER WOODEN PENCILS.CNM Work Phone: [facility] 10-08-2024 09:16-0400 Systolic blood pressure 110 mm[Hg] Hoda Plotts SANDER WOODEN PENCILS.CNM Work Phone: [facility] 09-10-2024 15:13-0400 Body mass index (BMI) [Ratio] 27.6 kg/m2 Hoda Plotts SANDER WOODEN PENCILS.CNM Work Phone: [facility] 09-10-2024 15:13-0400 Body weight 77.56 kg Hoda Plotts SANDER WOODEN PENCILS.CNM Work Phone: [facility] 09-10-2024 15:13-0400 Diastolic blood pressure 66 mm[Hg] Hoda Plotts SANDER WOODEN PENCILS.CNM Work Phone: [facility] 09-10-2024 15:13-0400 Systolic blood pressure 112 mm[Hg] Hoda Plotts SANDER WOODEN PENCILS.CNM Work Phone: [facility] 08-15-2024 14:34-0400 Body mass index (BMI) [Ratio] 27.6 kg/m2 Camelia Herrera SANDER WOODEN PENCILS.CNM Work Phone: [facility] 08-15-2024 14:34-0400 Body weight 77.56 kg Camelia Herrera SANDER WOODEN PENCILS.CNM Work Phone: [facility] 08-15-2024 14:34-0400 Diastolic blood pressure 66 mm[Hg] Camelia Herrera SANDER WOODEN PENCILS.CNM Work Phone: [facility] 08-15-2024 14:34-0400 Systolic blood pressure 108 mm[Hg] Camelia Herrera SANDER WOODEN PENCILS.CNM Work Phone: [facility] 07-18-2024 08:23-0400 Body height 167.6 cm Yasmeen [place] SANDER WOODEN PENCILS.STONE BELT SANDER Work Phone: [facility] 07-18-2024 08:23-0400 Body mass index (BMI) [Ratio] 27.44 kg/m2 Yasmeen [place] SANDER WOODEN PENCILS.STONE BELT SANDER Work Phone: [facility] 07-18-2024 08:23-0400 Body weight 77.11 kg Yasmeen [place] SANDER WOODEN PENCILS.STONE BELT SANDER Work Phone: [facility] 07-18-2024 08:23-0400 Diastolic blood pressure 68 mm[Hg] Yasmeen [place] SANDER WOODEN PENCILS.STONE BELT SANDER Work Phone: [facility] 07-18-2024 08:23-0400 Systolic blood pressure 122 mm[Hg] Yasmeen Jody SANDER WOODEN PENCILS.STONE BELT SANDER Work Phone: [facility] 06-13-2024 15:23-0400 Body mass index (BMI) [Ratio] 26.79 kg/m2 Toña Blankenship MD Work Phone: [facility] 06-13-2024 15:23-0400 Body weight 75.3 kg Toña Blankenship MD Work Phone: [facility] 06-13-2024 15:23-0400 Diastolic blood pressure 76 mm[Hg] Toña Blankenship MD Work Phone: [facility] 06-13-2024 15:23-0400 Systolic blood pressure 114 mm[Hg] oTña Blankenship MD Work Phone: [facility] 05-07-2024 10:50-0500 Body mass index (BMI) [Ratio] 27.12 kg/m2 Brennna Head SANDER WOODEN PENCILS.STONE BELT SANDER Work Phone: [facility] 05-07-2024 10:50-0500 Body weight 76.2 kg Brennan Hazbigniew SANDER WOODEN PENCILS.STONE BELT SANDER Work Phone: [facility] 05-07-2024 10:50-0500 Diastolic blood pressure 60 mm[Hg] Brennan Haury SANDER WOODEN PENCILS.STONE BELT SANDER Work Phone: [facility] 05-07-2024 10:50-0500 Systolic blood pressure 110 mm[Hg] Brennan Haury SANDER WOODEN PENCILS.STONE BELT SANDER Work Phone: [facility] 03-28-2024 09:33-0500 Body mass index (BMI) [Ratio] 27.76 kg/m2 Camelia Herrera SANDER WOODEN PENCILS.CNM Work Phone: [facility] 03-28-2024 09:33-0500 Body weight 78.02 kg Camelia Javier SANDER WOODEN PENCILS.CNM Work Phone: [facility] 03-28-2024 09:33-0500 Diastolic blood pressure 74 mm[Hg] Camelia Herrera SANDER WOODEN PENCILS.CNM Work Phone: [facility] 03-28-2024 09:33-0500 Systolic blood pressure 110 mm[Hg] Camelia Herrera SANDER WOODEN PENCILS.CNM Work Phone: [facility] 02-04-2024 14:36-0500 Body height 167.6 cm Camelia Herrera SANDER WOODEN PENCILS.CNM Work Phone: [facility] 02-04-2024 14:36-0500 Body mass index (BMI) [Ratio] 27.6 kg/m2 Camelia Herrera SANDER WOODEN PENCILS.CNM Work Phone: [facility] 02-04-2024 14:36-0500 Body weight 77.56 kg Camelia Javier SANDER WOODEN PENCILS.CNM Work Phone: [facility] 02-04-2024 14:36-0500 Diastolic blood pressure 68 mm[Hg] Camelia Herrera SANDER WOODEN PENCILS.CNM Work Phone: [facility] 02-04-2024 14:36-0500 Systolic blood pressure 114 mm[Hg] Camelia Herrera SANDER WOODEN PENCILS.CNM Work Phone: [facility] 10-30-2023 10:03-0400 Body mass index (BMI) [Ratio] 27.28 kg/m2 Camelia Herrera SANDER WOODEN PENCILS.CNM Work Phone: [facility] 10-30-2023 10:03-0400 Body weight 76.66 kg Camelia Herrera SANDER WOODEN PENCILS.CNM Work Phone: [facility] 10-30-2023 10:03-0400 Diastolic blood pressure 64 mm[Hg] Camelia Herrera SANDER WOODEN PENCILS.CNM Work Phone: [facility] 10-30-2023 10:03-0400 Systolic blood pressure 102 mm[Hg] Camelia Herrera SANDER WOODEN PENCILS.CNM Work Phone: [facility] 06-20-2023 14:35-0400 Body weight 74.39 kg Camelia Herrera SANDER WOODEN PENCILS.CNM Work Phone: [facility] 06-20-2023 14:35-0400 Diastolic blood pressure 68 mm[Hg] Camelia Herrera SANDER WOODEN PENCILS.CNM Work Phone: [facility] 06-20-2023 14:35-0400 Systolic blood pressure 110 mm[Hg] Camelia Herrera SANDER WOODEN PENCILS.CNM Work Phone: [facility] 01-29-2023 14:54-0400 Body height 167.6 cm Camelia Herrera SANDER WOODEN PENCILS.CNM Work Phone: [facility] 01-29-2023 14:54-0400 Body weight 70.67 kg Camelia Herrera SANDER WOODEN PENCILS.CNM Work Phone: [facility] 01-29-2023 14:54-0400 Diastolic blood pressure 64 mm[Hg] Camelia Herrera SANDER WOODEN PENCILS.CNM Work Phone: [facility] 01-29-2023 14:54-0400 Systolic blood pressure 108 mm[Hg] Camelia Herrera SANDER WOODEN PENCILS.CNM Work Phone: [facility] 01-09-2023 16:32-0400 Body weight 68.95 kg Laurie Rajguru SANDER WOODEN PENCILS.STONE BELT SANDER Work Phone: [facility] 01-09-2023 16:32-0400 Diastolic blood pressure 80 mm[Hg] Laurie Rajguru SANDER WOODEN PENCILS.STONE BELT SANDER Work Phone: [facility] 01-09-2023 16:32-0400 Heart rate 80 /min Laurie Rajguru SANDER WOODEN PENCILS.STONE BELT SANDER Work Phone: [facility] 01-09-2023 16:32-0400 Respiratory rate 16 /min Laurie Rajguru SANDER WOODEN PENCILS.STONE BELT SANDER Work Phone: [facility] 01-09-2023 16:32-0400 Systolic blood pressure 118 mm[Hg] Laurie Rajguru SANDER WOODEN PENCILS.STONE BELT SANDER Work Phone: [facility] 01-02-2023 14:58-0400 Body weight 68.31 kg Laurie Rajguru SANDER WOODEN PENCILS.STONE BELT SANDER Work Phone: [facility] 01-02-2023 14:58-0400 Diastolic blood pressure 66 mm[Hg] Laurie Rajguru SANDER WOODEN PENCILS.STONE BELT SANDER Work Phone: [facility] 01-02-2023 14:58-0400 Heart rate 84 /min Laurie Rajguru SANDER WOODEN PENCILS.STONE BELT SANDER Work Phone: [facility] 01-02-2023 14:58-0400 Systolic blood pressure 118 mm[Hg] Laurie Rajguru SANDER WOODEN PENCILS.STONE BELT SANDER Work Phone: [facility] 11-21-2022 14:29-0400 Body weight 70.31 kg Laurie Rajguru SANDER WOODEN PENCILS.STONE BELT SANDER Work Phone: [facility] 11-21-2022 14:29-0400 Diastolic blood pressure 78 mm[Hg] Laurie Rajguru SANDER WOODEN PENCILS.STONE BELT SANDER Work Phone: [facility] 11-21-2022 14:29-0400 Heart rate 80 /min Laurie Rajguru SANDER WOODEN PENCILS.STONE BELT SANDER Work Phone: [facility] 11-21-2022 14:29-0400 Systolic blood pressure 132 mm[Hg] Laurie Rajguru SANDER WOODEN PENCILS.STONE BELT SANDER Work Phone: [facility] 11-20-2022 00:59-0400 Respiratory rate 18 /min Lukas Darling MD Work Phone: [employer] 11-20-2022 00:54-0400 Body temperature 98.01 [degF] Lukas Darling MD Work Phone: [employer] 11-20-2022 00:54-0400 Diastolic blood pressure 90 mm[Hg] Lukas Darling MD Work Phone: [employer] [facility] 11-20-2022 00:54-0400 Heart rate 125 /min Lukas Darling MD Work Phone: [employer] 11-20-2022 00:54-0400 SaO2% (BldA) [Mass fraction] 100 % Lukas Darling MD Work Phone: [facility] 11-20-2022 00:54-0400 Systolic blood pressure 133 mm[Hg] Lukas Darling MD Work Phone: [facility] 11-19-2022 00:40-0400 Diastolic Blood Pressure Non-Invasive 79 1 PRINCE RAYA MD [facility] 11-19-2022 00:40-0400 Heart rate 68 /min PRINCE RAYA MD [facility] 11-19-2022 00:40-0400 Reason For Taking VItal Signs PRINCE RAYA MD [facility] 11-19-2022 00:40-0400 Respiratory rate 15 /min PRINCE RAYA MD [facility] 11-19-2022 00:40-0400 Systolic Blood Pressure Non-Invasive 128 1 PRINCE RAYA MD [facility] 11-18-2022 23:30-0400 Blood Pressure Location PRINCE RAYA MD [facility] 11-18-2022 23:30-0400 Body temperature 97.88 [degF] PRINCE RAYA MD [facility] 11-18-2022 23:30-0400 Diastolic Blood Pressure Non-Invasive 96 1 PRINCE RAYA MD [facility] 11-18-2022 23:30-0400 Heart rate 75 /min PRINCE RAYA MD [facility] 11-18-2022 23:30-0400 Respiratory rate 16 /min PRINCE RAYA MD [facility] 11-18-2022 23:30-0400 Systolic Blood Pressure Non-Invasive 149 1 PRINCE RAYA MD [facility] 05-02-2022 14:14-0500 Body height 167.6 cm Camelia Herrera SANDER WOODEN PENCILS.CNM Work Phone: [facility] 05-02-2022 14:14-0500 Body weight 73.21 kg Camelia Herrera SANDER WOODEN PENCILS.CNM Work Phone: [facility] 05-02-2022 14:14-0500 Diastolic blood pressure 70 mm[Hg] Camelia Herrera SANDER WOODEN PENCILS.CNM Work Phone: [facility] 05-02-2022 14:14-0500 Systolic blood pressure 120 mm[Hg] Camelia Herrera APRN.CNM Work Phone: [facility] 09-26-2016 15:30-0400 BMI (Body Mass Index) 25.78 kg/m2 Migdalia Elizabeth [facility] Work Phone: 09-26-2016 15:30-0400 Body Temperature 98.6 [degF] Migdalia Elizabeth [facility] Work Phone: 09-26-2016 15:30-0400 BP Diastolic 78 mm[Hg] Migdalia Elizaebth Infect [facility] Work Phone: 09-26-2016 15:30-0400 BP Systolic 116 mm[Hg] Migdalia [facility] Work Phone: 09-26-2016 15:30-0400 Height 168.91 cm Migdalia Elizabeth [facility] Work Phone: 09-26-2016 15:30-0400 Pulse (Heart Rate) 50 /min Migdalia Elizabeth [facility] Work Phone: 09-26-2016 15:30-0400 Respiratory Rate 18 /min Migdalia Calderon MITCHEL [facility] Work Phone: 09-26-2016 15:30-0400 Weight 73.57 kg Migdalia Calderon [facility] Work Phone: Encounters Encounter Date Encounter Type Care Provider Facility Start: 01-07-2025 End: 01-07-2025 ambulatory PRATIMA ONTIVEROS Facility:[facility] Start: 01-06-2025 End: 01-10-2025 ambulatory ROBYN Robert VAZQUEZ DO Facility:[facility] Start: 01-06-2025 End: 01-10-2025 Encounter for general adult medical examination without abnormal findings ROBYN VAZQUEZ DO Facility:[facility] Start: 01-06-2025 End: 01-10-2025 Outreach Lab ROBYN Robert VAZQUEZ DO [facility] Start: 01-02-2025 End: 01-02-2025 ambulatory LAURIE SERRA Facility:[facility] Start: 12-24-2024 End: 12-24-2024 ambulatory PRATIMA ONTIVEROS Facility:[facility] Start: 12-10-2024 End: 12-10-2024 ambulatory CAMELIA HERRERA Facility:[facility] Start: 12-10-2024 End: 12-10-2024 Patient encounter procedure Camelia Herrera APRN.CNM Work Phone: OB/Gynecology Comment on above: Supervision of yu l first , antepartum (HCC) (Primary Dx); 29 weeks gestation of (HCC); History of depression; History of anxiety Start: 11-26-2024 End: 11-26-2024 Patient encounter procedure Hoda Hager SANDER WOODEN PENCILS.CNM Work Phone: OB/Gynecology Comment on above: 27 weeks gestation o f (HCC) (Primary Dx); Supervision of normal first , antepartum (HCC); Other depression; History of depression Start: 11-26-2024 End: 11-26-2024 ambulatory PRATIMA ONTIVEROS Facility:[facility] Start: 11-20-2024 End: 11-24-2024 Telephone encounter Camelia Herrera APRN.CNM Work Phone: OB/Gynecology Comment on above: Orders (Breast pump) Start: 11-18-2024 End: 11-18-2024 ambulatory Camelia Herrera APRN.CNM Work Phone: OB/Gynecology Start: 11-18-2024 End: 11-18-2024 Patient encounter procedure Camelia Herrera APRN.CNM Work Phone: OB/Gynecology Comment on above: Appointments and vax talk Start: 11-12-2024 End: 11-12-2024 ambulatory PRATIMA ONTIVEROS Facility:[facility] Start: 11-12-2024 End: 11-12-2024 Patient encounter procedure Camelia Herrera APRN.CNM Work Phone: OB/Gynecology Comment on above: Supervision of yu garcia first , antepartum (HCC) (Primary Dx); 25 weeks gestation of (HCC); Other depression Start: 11-05-2024 End: 11-05-2024 ambulatory [facility] Facility:[facility] Start: 10-28-2024 End: 10-28-2024 Office outpatient visit 25 minutes Laurie Serra APRN.STONE BELT SANDER Work Phone: Psychiatry Comment on above: FREDO (generalized anx iety disorder) (Primary Dx); Other obsessive-compulsive disorders; Recurrent major depressive disorder, in full remission; Encounter for long-term (current) use of medications Start: 10-28-2024 End: 10-28-2024 ambulatory LAURIE SERRA Facility:[facility] Start: 10-22-2024 End: 10-22-2024 ambulatory [facility] Facility:[facility] Start: 10-22-2024 End: 10-22-2024 Patient encounter procedure Hoda Hager APRN.CNM Work Phone: OB/Gynecology Comment on above: Supervision of yu garcia first , antepartum (HCC) (Primary Dx); 22 weeks gestation of (HCC); Other depression Start: 10-08-2024 End: 10-08-2024 [facility] Facility:[facility] Start: 10-08-2024 End: 10-08-2024 Patient encounter procedure Hoda Hager APRN.CNM Work Phone: OB/Gynecology Comment on above: Supervision of yu l first , antepartum (HCC) (Primary Dx); History of depression; 20 weeks gestation of ([facility]) Encounter for anatomic survey (HCC) (Primary Dx); 20 weeks gestation of (HCC) Start: 09-29-2024 End: 09-29-2024 ambulatory Camelia Herrera APRN.CNM Work Phone: OB/Gynecology Comment on above: Centering Start: 09-29-2024 End: 09-29-2024 E-mail encounter from caregiver Camelia Herrera APRN.CNM Work Phone: OB/Gynecology Start: 09-22-2024 End: 09-23-2024 Refill Laurie Serra APRN.CNP Work Phone: Psychiatry Comment on above: Refill Request Start: 09-10-2024 End: 09-10-2024 Patient encounter procedure Hoda Hager APRN.CNM Work Phone: OB/Gynecology Comment on above: Supervision of yu l first , antepartum (HCC) (Primary Dx); History of depression; TMJ (temporomandibular joint syndrome); History of Lyme disease; 16 weeks gestation of ([facility]) Start: 09-10-2024 End: 09-10-2024 [facility] Facility:[facility] Start: 08-15-2024 End: 08-15-2024 [facility] Facility:[facility] Start: 08-15-2024 End: 08-15-2024 Patient encounter procedure Camelia Herrera APRN.CNM Work Phone: OB/Gynecology Comment on above: Supervision of yu l first , antepartum (HCC) (Primary Dx); History of depression; Other depression Encounter for antena zohra screening for malformation using ultrasound (HCC) (Primary Dx); 12 weeks gestation of ([facility]) Start: 08-15-2024 End: 08-15-2024 [facility] Facility:[facility] Start: 07-18-2024 End: 09-17-2024 Follow-up encounter Yasmeen Vera APRN.CNP Work Phone: OB/Gynecology Start: 07-18-2024 End: 07-18-2024 Patient encounter procedure Yasmeen Vera APRN.CNP Work Phone: OB/Gynecology Comment on above: Supervision of yu garcia first , antepartum (HCC) (Primary Dx); 8 weeks gestation of ([facility]); with uncertain dates in first trimester ([facility]); care, first in first trimester ([facility]); Screen for STD (sexually transmitted disease) Start: 07-18-2024 End: 07-18-2024 [facility] Facility:[facility] Start: 07-15-2024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 [address] [place] [address] Laurie Serra SANDER WOOD[employer] PENCILS.STONE BELT SANDER [address] [place] [address] follow up Psychiatry Comment on above: follow up Start: 12-27-2023 End: 12-27-2023 Patient encounter procedure 12/27/2023 2:45 PM EDT Office Visit OB/Gynecology [address] [place] [address] Camelia Herrera APRN.CN [address] [address] Annual OB/Gynecology Comment on above: Annual Start: 12-18-2023 End: 03-18-2024 Follitropin [Units/volume] in Serum or Plasma [facility] Work Phone: Comment on above: Expected: 12/18/2023 , Expires: 03/18/2024 Start: 12-07-2023 End: 03-07-2024 Estradiol (E2) [Mass/volume] in Serum or Plasma ESTRADIOL-17B BLD Lab Routine Encounter for preconception consultation Expected: 12/07/2023 (Approximate), Expires: 03/07/2024 [facility] Comment on above: Expected: 12/07/2023 (Approximate), Expires: 03/07/2024 Start: 12-02-2023 Covid-19 Vaccine ( season) Covid-19 Vaccine ( season) [facility] Start: 12-02-2023 Covid-19 Vaccine ( season) Covid-19 Vaccine ( season) [facility] Start: 12-02-2023 Influenza vaccination [facility] Start: 11-07-2023 End: 02-06-2024 Progesterone [Mass/volume] in Serum or Plasma PROGESTERONE Lab Routine Encounter for preconception consultation Expected: 11/07/2023 (Approximate), Expires: 02/06/2024 [facility] Work Phone: Comment on above: Expected: 11/07/2023 (Approximate), Expires: 02/06/2024 Start: 11-06-2023 End: 02-05-2024 Hemoglobin A1c in Blood HEMOGLOBIN A1C Lab Routine Encounter for preconception consultation Expected: 11/06/2023, Expires: 02/05/2024 [facility] Comment on above: Expected: 11/06/2023 , Expires: 02/05/2024 Start: 11-06-2023 End: 02-05-2024 RUBELLA IGG ANTIBODY RUBELLA IGG ANTIBODY Lab Routine Encounter for preconception consultation Expected: 11/06/2023, Expires: 02/05/2024 [facility] Comment on above: Expected: 11/06/2023 , Expires: 02/05/2024 Start: 11-06-2023 End: 02-05-2024 Thyrotropin [Units/volume] in Serum or Plasma THYROID STIMULATING HORMONE Lab Routine Encounter for preconception consultation Expected: 11/06/2023, Expires: 02/05/2024 [facility] Comment on above: Expected: 11/06/2023 , Expires: 02/05/2024 Start: 11-06-2023 End: 02-05-2024 VARICELLA ZOSTER IGG VARICELLA ZOSTER IGG Lab Routine Encounter for preconception consultation Expected: 11/06/2023, Expires: 02/05/2024 [facility] Comment on above: Expected: 11/06/2023 , Expires: 02/05/2024 Start: 11-06-2023 End: 02-05-2024 WHIIVF ANTI MULLERIAN HORMONE WHIIVF ANTI MULLERIAN HORMONE Lab Routine Encounter for preconception consultation Expected: 11/06/2023, Expires: 02/05/2024 [facility] Comment on above: Expected: 11/06/2023 , Expires: 02/05/2024 Start: 10-30-2023 End: 10-30-2023 Patient encounter procedure 10/30/2023 9:30 AM EDT Office Visit OB/Gynecology [address] [place] [address] Camelia Herrera APRN.[facility] [address] [place] [id number] discuss options for Trying to conceive OB/Gynecology Comment on above: discuss options for Trying to conceive Start: 10-18-2023 End: 10-18-2023 Follow-up encounter 10/18/2023 9:00 AM EDT [facility] Psychiatry [address] [place] [address] Laurie Serra, SANDER WOOD[employer] PENCILS.STONE BELT SANDER [address] [place] [address] 3 MONTH FOLLOW UP Psychiatry Comment on above: 3 MONTH FOLLOW UP Start: 08-17-2023 End: 11-16-2023 Choriogonadotropin.beta subunit [Units/volume] in Serum or Plasma HCG QUANTITATIVE Lab Routine Missed menses Expected: 08/17/2023, Expires: 11/16/2023 [facility] Work Phone: Comment on above: Expected: 08/17/2023 , Expires: 11/16/2023 Start: 06-17-2023 PAP TESTING PAP TESTING [facility] Start: 06-17-2023 Screening for malign ant neoplasm of cervix Cervical Cancer Screening [facility] Start: 2023 Screening for malign ant neoplasm of cervix HPV Testing [facility] Start: 04-02-2023 Depression Assessment Depression Ass essment [facility] Start: 12-01-2022 Covid-19 Vaccine () Covid-19 Vaccine () [facility] Start: 12-01-2022 Influenza vaccination [facility] Start: 05-26-2022 End: 05-26-2023 THYROID PEROXIDASE ANTIBODY BLOOD THYROID PEROXIDASE ANTIBODY BLOOD Lab Routine Low T4 Expected: 05/26/2022, Expires: 05/26/2023 [facility] Work Phone: Comment on above: Expected: 05/26/2022 , Expires: 05/26/2023 Start: 05-26-2022 End: 05-26-2023 Thyrotropin [Units/volume] in Serum or Plasma TSH BLD Lab Routine Low T4 Expected: 05/26/2022, Expires: 05/26/2023 [facility] Work Phone: Comment on above: Expected: 05/26/2022 , Expires: 05/26/2023 Start: 05-26-2022 End: 05-26-2023 Thyroxine (T4) [Mass/volume] in Serum or Plasma T4/THYROXINE BLOOD Lab Routine Low T4 Expected: 05/26/2022, Expires: 05/26/2023 [facility] Work Phone: Comment on above: Expected: 05/26/2022 , Expires: 05/26/2023 Start: 05-26-2022 End: 05-26-2023 Thyroxine (T4) free [Mass/volume] in Serum or Plasma T4 FREE/FREE THYROX Lab Routine Low T4 Expected: 05/26/2022, Expires: 05/26/2023 [facility] Work Phone: Comment on above: Expected: 05/26/2022 , Expires: 05/26/2023 Start: 05-26-2022 End: 05-26-2023 Triiodothyronine (T3) [Mass/volume] in Serum or Plasma T3 BLD Lab Routine Low T4 Expected: 05/26/2022, Expires: 05/26/2023 [facility] Work Phone: Comment on above: Expected: 05/26/2022 , Expires: 05/26/2023 Start: 05-26-2022 End: 05-26-2023 Triiodothyronine (T3) Free [Mass/volume] in Serum or Plasma T3 FREE BLD Lab Routine Low T4 Expected: 05/26/2022, Expires: 05/26/2023 [facility] Work Phone: Comment on above: Expected: 05/26/2022 , Expires: 05/26/2023 Start: 05-02-2022 End: 05-02-2023 PELVIC US WHI PELVIC US WHI Anc Imaging Routine Irregular menstrual cycle Expected: 05/02/2022, Expires: 05/02/2023 [facility] Work Phone: Comment on above: Expected: 05/02/2022 , Expires: 05/02/2023 Start: 05-02-2022 End: 07-02-2022 Prolactin [Mass/volume] in Serum or Plasma PROLACTIN BLD Lab Routine Irregular menstrual cycle Expected: 05/02/2022, Expires: 07/02/2022 [facility] Work Phone: Comment on above: Expected: 05/02/2022 , Expires: 07/02/2022 Start: 05-02-2022 End: 05-02-2023 THYROID PEROXIDASE ANTIBODY BLOOD THYROID PEROXIDASE ANTIBODY BLOOD Lab Routine Irregular menstrual cycle Expected: 05/02/2022, Expires: 05/02/2023 [facility] Work Phone: Comment on above: Expected: 05/02/2022 , Expires: 05/02/2023 Start: 05-02-2022 End: 05-02-2023 Thyrotropin [Units/volume] in Serum or Plasma TSH BLD Lab Routine Irregular menstrual cycle Expected: 05/02/2022, Expires: 05/02/2023 [facility] Work Phone: Comment on above: Expected: 05/02/2022 , Expires: 05/02/2023 Start: 05-02-2022 End: 05-02-2023 Thyroxine (T4) [Mass/volume] in Serum or Plasma T4/THYROXINE BLOOD Lab Routine Irregular menstrual cycle Expected: 05/02/2022, Expires: 05/02/2023 [facility] Work Phone: Comment on above: Expected: 05/02/2022 , Expires: 05/02/2023 Start: 05-02-2022 End: 05-02-2023 Thyroxine (T4) free [Mass/volume] in Serum or Plasma T4 FREE/FREE THYROX Lab Routine Irregular menstrual cycle Expected: 05/02/2022, Expires: 05/02/2023 [facility] Work Phone: Comment on above: Expected: 05/02/2022 , Expires: 05/02/2023 Start: 05-02-2022 End: 05-02-2023 Triiodothyronine (T3) [Mass/volume] in Serum or Plasma T3 BLD Lab Routine Irregular menstrual cycle Expected: 05/02/2022, Expires: 05/02/2023 [facility] Work Phone: Comment on above: Expected: 05/02/2022 , Expires: 05/02/2023 Start: 05-02-2022 End: 05-02-2023 Triiodothyronine (T3) Free [Mass/volume] in Serum or Plasma T3 FREE BLD Lab Routine Irregular menstrual cycle Expected: 05/02/2022, Expires: 05/02/2023 [facility] Work Phone: Comment on above: Expected: 05/02/2022 , Expires: 05/02/2023 Start: 04-02-2022 DEPRESSION ASSESSMENT DEPRESSION ASS ESSMENT [facility] Start: 2020 HPV Vaccine (1 - 3-d ose SCDM series) HPV Vaccine (1 - 3-dose SCDM series) [facility] Start: 09-26-2016 End: 10-27-2016 *CMP Complete Metabolic Panel *CMP Complete Metabolic Panel [facility] Work Phone: Start: 09-26-2016 End: 10-27-2016 Lipid panel [AGGREGATE] *Lipid Profile [facility] Work Phone: Start: 09-26-2016 End: 10-27-2016 Thyroid stimulating hormone (TSH) *TSH [facility] Work Phone: Start: 2014 Screening for malign ant neoplasm of cervix Pap Smear [facility] Start: 2012 Urine microalbumin profile [facility] Start: 2011 Anxiety Screening Anxiety Screening [facility] Start: 2011 Depression Screening Depression Scre ing [facility] Start: 2011 HEPATITIS C SCREENING HEPATITIS C [facility] Start: 2011 Hepatitis C screening Hepatitis C [facility] Start: 2011 HIV SCREENING HIV SCREENING [facility] Start: 2011 HIV screening HIV Screening [facility] Start: 03-23-2009 Varicella vaccination Varicell a Vaccines (1 of 2 - 2-dose childhood series) [facility] Start: 2005 Depression Screening Depression Scre ening [facility] Start: 1993 COVID-19 VACCINE (#1) COVID-19 VACCI NE (#1) [facility] Start: 1993 HEPATITIS B (1 of 3 - 3-dose series) HEPATITIS B (1 of 3 - 3-dose series) [facility] Start: 1993 Hepatitis B Vaccine (1 of 3 - 3-dose series) Hepatitis B Vaccine (1 of 3 - 3-dose series) [facility] Start: 1993 HIV screening HIV Screening [facility] Bacteria identified in Urine by Culture BACTERIAL CULTURE, URINE Microbiology Routine Dysuria Ordered: 05/07/2024 [facility] Work Phone: Comment on above: Ordered: 05/07/2024 Bacteria identified in Urine by Culture BACTERIAL CULTURE, URINE Microbiology Routine with uncertain dates in first trimester ([facility]) care, first in first trimester ([facility]) 07/18/2024 9:07 AM EDT [facility] BACTERIAL VAGINOSIS NAAT BACTERI AL VAGINOSIS NAAT Lab Routine Vaginal discharge 03/28/2024 3:12 PM EST [facility] MYRA/TRICHOMONAS NAAT MYRA /TRICHOMONAS NAAT Lab Routine Vaginal discharge 03/28/2024 3:12 PM [facility] Work Phone: Chlamydia trachomatis+Neisseria gonorrhoeae DNA [Presence] in Unspecified specimen by AD with probe detection GONORRHEA/CHLAMYDIA NAAT Lab Routine with uncertain dates in first trimester ([facility]) care, first in first trimester ([facility]) 07/18/2024 9:07 AM T [facility] Progesterone [Mass/volume] in Serum or Plasma PROGESTERONE Lab Routine Encounter for preconception consultation 11/06/2023 8:34 AM EDT [facility] TRICHOMONAS VAGINALI S NAAT TRICHOMONAS VAGINALIS NAAT Lab Routine Screen for STD (sexually transmitted disease) 07/18/2024 9:07 AM EDT [facility] Immunizations Immunization Date Immunization Notes Care Provider [facility] 01-12-2022 influenza, injectabl e, quadrivalent, preservative free Toña Blankenship MD Work Phone: [facility] 01-12-2022 influenza virus vacc ine, unspecified formulation Lukas Darling MD Work Phone: [facility] 01-19-2021 influenza, injectabl e, quadrivalent, preservative free Toña Blankenship MD Work Phone: [facility] 01-19-2021 influenza, injectabl e, quadrivalent, contains preservative; Translations: [Fluarix PF Quadrivalent ] VERN URBAN MD [facility] 01-30-2020 Influenza, injectabl e, Madin Ana M Canine Kidney, preservative free, quadrivalent Toña Blankenship MD Work Phone: [facility] 03-28-2018 tetanus and diphther ia toxoids, adsorbed, preservative free, for adult use (5 Lf of tetanus toxoid and 2 Lf of diphtheria toxoid) VERN URBAN MD [facility] 03-28-2018 tetanus toxoid, redu vero diphtheria toxoid, and acellular pertussis vaccine, adsorbed Toña Blankenship MD Work Phone: [facility] 01-12-2016 influenza, seasonal, injectable, preservative free Toña Blankenship MD Work Phone: [facility] 02-23-2009 novel Influenza-H1N1 -09, live virus for nasal administration Toña Blankenship MD Work Phone: [facility] 06-15-2008 meningococcal polysaccharide (groups A, C, Y and W-135) diphtheria toxoid conjugate vaccine (MCV4P) VERN URBAN MD [facility] 06-08-2008 tetanus and diphther ia toxoids, adsorbed, preservative free, for adult use (5 Lf of tetanus toxoid and 2 Lf of diphtheria toxoid) VERN URBAN MD [facility] 04-08-1998 diphtheria, tetanus toxoids and acellular pertussis vaccine VERN URBAN MD [facility] 04-08-1998 measles, mumps and rubella virus vaccine Toña Blankenship MD Work Phone: [facility] 04-08-1998 measles/mumps/rubell a virus vaccine VERN URBAN MD [facility] 04-08-1998 poliovirus vaccine, inactivated VERN URBAN MD [facility] 10-16-1994 diphtheria, tetanus toxoids and acellular pertussis vaccine VERN URBAN MD [facility] 07-28-1994 haemophilus influenz ae type b vaccine, PRP-T conjugate VERN URBAN MD [facility] 07-28-1994 measles, mumps and rubella virus vaccine Toña Blankenship MD Work Phone: [facility] 07-28-1994 measles/mumps/rubell a virus vaccine VERN URBAN MD [facility] 04-14-1994 hepatitis B vaccine, unspecified formulation VERN URBAN MD [facility] 1993 diphtheria, tetanus toxoids and acellular pertussis vaccine VERN URBAN MD [facility] 1993 haemophilus influenz ae type b vaccine, PRP-T conjugate VERN URBAN MD [facility] 1993 hepatitis B vaccine, unspecified formulation VERN URBAN MD [facility] 1993 poliovirus vaccine, inactivated [facility] 1993 diphtheria, tetanus toxoids and acellular pertussis vaccine VERN URBAN MD [facility] 1993 haemophilus influenz ae type b vaccine, PRP-T conjugate VERN URBAN MD [facility] 1993 poliovirus vaccine, inactivated VERN URBAN MD [facility] 1993 diphtheria, tetanus toxoids and acellular pertussis vaccine VERN URBAN MD [facility] 1993 haemophilus influenz ae type b vaccine, PRP-T conjugate VERN URBAN MD [facility] 1993 poliovirus vaccine, inactivated VERN URBAN MD [facility] 1993 hepatitis B vaccine, unspecified formulation VERN URBAN MD [facility] Payers Date Payer Category Payer Unknown [id number] 2023 Self-pay 2022 Medicaid [id number] 2022 Private Health Insurance [id number] 2022 Private Health Insurance [id number] 2019 Medicaid [id number] 1993 Unknown [id number] 1993 Unknown [id number] 1993 Unknown [id number] 1993 Unknown [id number] Unknown [id number] Social History Date Type Detail Facility Start: 09-23-2019 End: 05-02-2022 Tobacco smoking status NHIS Never smoked tobacco [facility] Start: 05-02-2022 Tobacco use and exposure Smoke less tobacco non-user [facility] Start: 05-02-2022 End: 05-07-2024 Alcohol intake Current drinker of alcohol (finding) [facility] Start: 05-02-2022 Alcohol Comment rarely [facility] Start: 1993 Sex Assigned At Not on file [facility] Sex Assigned At Female [facility] Start: 08-24-2022 End: 10-30-2023 History of Social function [facility] Start: 08-24-2022 End: 10-30-2023 Tobacco use panel [facility] Start: 10-18-2014 Adult Depression Screening Assessment 2 [facility] Tobacco smoking stat us [facility] Tobacco smoking consumption unknown [facility] Start: 11-09-2022 End: 11-19-2022 Exposure to SARS-CoV-2 (event) Not sure [facility] Start: 07-15-2024 End: 11-26-2024 Alcoholic beverage intake Ex-drinker (finding) [facility] Start: 07-15-2024 Education 18 [facility] Start: 06-01-2024 [facility] Sexual Orientation [facility] susan [facility] Start: 09-25-2018 Sex Female (finding) [facility] Goals Date Patient Goal Desired Activity /State Personal health goal Functional Status Date Assessment Result Facility 11-19-2022 Functional Status Activity Assistance Ind ependent [facility] 11-19-2022 Functional Status Environmental Safety Implemented Adequate room lighting, Bed in low position, Call device within reach, Non-Slip footwear, Personal items within reach, Sensory aids within reach, Traffic path in room free of clutter, Upper/Half length side rails for bed mobility, Wheels locked [facility] 11-18-2022 Functional Status N/A [facility] Mental Status Date Assessment Result Facility 11-19-2022 Mental Status Orientation Oriented x 4 [facility] 11-18-2022 Mental Status [facility] Clinical Notes 05-02-2022 to 01-07-2025 Patient InstructionsPrenatal Quick Notes - Camelia Herrera APRN.CNM - 12/10/2024 2:30 PM EDTPrenatal Quick Notes - Camelia Herrera APRN.CNM - 12/10/2024 2:30 PM EDTPatient Instructions Note Date & Type Note Facility 01-07-2025 Note HNO ID: [id number] Author: HODA HAGER APRN.CNM Service: ? Author Type: Paperhanger Apprentice Type: Progress Notes Filed: 01/07/2025 15:23 Note Text: NST SUMMARY PROVIDER ASSESSMENT AND INTERPRETATION Smita Nguyen is a 29 year old female, , who is at 33w3d with an ENE of 02/22/2025, by Last Menstrual Period dating method. Indications for NST: Decreased Movement Baseline: 135 Variability: Moderate Accelerations: Present 15 X 15 Decelerations: None Contractions: TOCO: None Interpretation: Reactive SIGNATURE: Hoda Hager APRN.CNM [facility] 01-02-2025 Note HNO ID: [id number] Author: LAURIE SERRA APRN.CNP Service: ? Author Type: Nurse Practitioner Type: Progress Notes Filed: 01/02/2025 09:02 Note Text: FOLLOW UP - PSYCHIATRIC PROGRESS NOTE Visit Type:Virtual Visit utilizing two-way audio and video for at least a portion of the visit. Consent for virtual visit obtained verbally. Confidentiality limitations with virtual visits reviewed with the patient and guardian, if present, who have accepted the risk verbally prior to proceeding with encounter. I have communicated my name and active licensure. The patient's identity and physical location were verified at the time of this visit. Either the patient or their legal junior sales representative has been informed of the risks and benefits of -- and alternatives to -- treatment through a remote evaluation and consents to proceed with the evaluation remotely. Recording using [employer] software for draft documentation of the visit was discussed with the patient/authorized junior sales representative; all questions welcomed and answered. Patient/authorized junior sales representative agreed to proceed CC: Outpatient follow-up and safety monitoring of previously prescribed psychiatric medication, psychotherapy or other treatment HPI: Smita is a 29-year-old female, , with a history of severe OCD and depression, presenting for a follow-up visit at 32 weeks gestation. Smita reports increasing anxiety as she approaches her due date, particularly concerning the period. She expresses concerns about potential hormonal changes and their impact on her mental health. She is currently taking Lexapro 30 mg daily and has a scheduled therapy session on February 03, with plans to discuss therapy frequency thereafter. She is not currently taking omega-3 fatty acid supplements but is taking vitamins. She has a plan in place and intends to breastfeed. She has access to lorazepam and hydroxyzine but has not used them recently. She plans to take 14 weeks of maternity leave and has a support system in place, including her , mother, and aunt. Risks and benefits of the medication, including any black box warnings, were discussed with the patient. Interval Progress: Same PATIENT DATA: Generalized Anxiety Disorder Scale (FREDO-7) 06/23/2024 10/27/2024 01/02/2025 FREDO - 7 SCORES Score 12 12 7 6 (0-4) minimal anxiety, (5-9) mild anxiety, (10-14) moderate anxiety, (15-21) severe anxiety Patient Health Questionnaire (PHQ-9) 06/23/2024 10/27/2024 01/02/2025 PHQ-9 Score 11 11 1 2 (0-4) minimal depression, (5-9) mild depression, (10-14) moderate depression, (15-19) moderately severe depression, (20-27) severe depression PROMIS Global Health 06/23/2024 10/01/2024 10/27/2024 PROMIS Global Health - (T-Scores - the mean of general population = 50. 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 135 tablet 0 aspirin, enteric coated (ECOTRIN LOW STRENGTH) 81 mg EC tablet Take 1 tablet by mouth once daily. 90 tablet 3 no115/iron/folic acid ( 19 ORAL) Take by mouth once daily. [place] SACCHAROMYCES BOULARDII ORAL INOSITOL ORAL cholecalciferol, vitamin D3, (VITAMIN D3 ORAL) MAGNESIUM GLYCINATE, BULK, MISC No current facility-administered medications for this visit. ROS: See HPI PFSH: See HPI VITAL SIGNS: There were no vitals filed for this visit. MENTAL STATUS EXAM: Mental Status Exam General/Sensorium: Alert Orientation: AAOx3 Appearance: Appears well groomed and stated age and casually dressed Eye contact: Appropriate Demeanor: Appropriately interactive Motor activity: Calm Speech: Articulate with appropriate rhythm and volume Mood: Euthymic Affect: Congruent with mood Thought process: Linear, logical, and goal-directed Associations: Normal Thought content: Discussing stressors, future goals or plans and focused on history, symptoms, and management Suicidal ideation: SI: no Plan: no Intent: no Homicidal ideation: HI: no Plan: no Intent: no Abnormal/psychotic thoughts: Absent Perceptions: She does not appear internally stimulated. Attention: Intact Memory: Short-term: Intact Long-term: Intact Language: Intact Fund of knowledge: Appropriate Insight: Good Judgment: Good DATA REVIEWED: The PDMP report was reviewed and found to be appropriate without any signs of misuse or diversion. Psychiatric scales, Labs, and Electronic medical record ASSESSMENT AND PLAN: 1. 1. Other obsessive-compulsive disorders (more content not included)... [facility] 12-10-2024 Instructions Tatum Guillermo MA - 12/10/2024 2:36 PM EDT SEQUENTIAL SCREENINGS The [facility] offers sequential screenings for women who are interested in screenings for chromosomal abnormalities and certain defects during a . The sequential screen combines ultrasound and blood tests to determine the risk of chromosomal abnormalities, including Down's Syndrome (Trisomy 21) and Trisomy 18, as well as open neural tube defects including spina bifida. Ultrasound examination is performed between 11 weeks and 13 weeks gestational age. Blood tests are drawn after the ultrasound and again later in the between 15 and 21 weeks gestational age. Please let your physician know if you are interested in this testing. It will require an appointment with our special effects technician. This is not an ultrasound performed by a physician in our office during a routine visit. SIGNS AND SYMPTOMS OF LABOR 1. Contractions every 10 minutes or more often 2. Clear, pink, or brownish fluid (water) leaking from vagina 3. Feeling that baby is pushing down, pressure 4. Low, dull backache 5. Cramps that feel like a period 6. Cramps with or without diarrhea If you notice any of the above symptoms, contact our office at [phone] and ask to speak with a nurse. After hours, you can call doctors registry at [phone] OR call [facility] at [phone] and ask to have the doctor blown film extrusion operator paged. If you consider this an emergency, dial 9-6-7 or go to your nearest emergency department. NEED HELP? Are you dealing with a violent or abusive relationship? Are you a victim of rape or sexual assult? Call [facility] ([place]) 24 hour Crisis Hotline: 877.328.2903 or 605-733-2461. MANUAL Your Guide to a Healthy manual is now on-line. Visit [email or web address] to download your free copy documented in this encounter [facility] 12-10-2024 Miscellaneous Notes ESAU-S: Smita Nguyen is a 29 year old female who presents at 29w3d with ENE:02/22/2025, by Last Menstrual Period for a routine visit. Denies headache, visual changes, chest pain, shortness of breath, vaginal bleeding, leakage of fluid, or dysuria. Feeling well, no complaints. O: See flow sheet Gen: No apparent distress Abd: Gravid, nontender ASSESSMENT/PLAN: 1. Supervision of normal first , antepartum -Continue PNV -Continue ASA -Declines LARC 2. Other depression 3. 29 weeks gestation of -1hr GCT and CBC normal -Declined Tdap, RSV, and influenza PTL precautions reviewed and when to call RTO in 2 week Camelia Herrera APRN.CNM documented in this encounter [facility] 12-10-2024 Progress note Formatting of t his note might be different from the original. ESAU-S: Smita Nguyen is a 29 year old female who presents at 29w3d with ENE:02/22/2025, by Last Menstrual Period for a routine visit. Denies headache, visual changes, chest pain, shortness of breath, vaginal bleeding, leakage of fluid, or dysuria. Feeling well, no complaints. O: See flow sheet Gen: No apparent distress Abd: Gravid, nontender ASSESSMENT/PLAN: 1. Supervision of normal first , antepartum -Continue PNV -Continue ASA -Declines LARC 2. Other depression 3. 29 weeks gestation of -1hr GCT and CBC normal -Declined Tdap, RSV, and influenza PTL precautions reviewed and when to call RTO in 2 week Camelia Herrera APRN.CNM [facility] 11-26-2024 Instructions Marce Bello MA - 11/26/2024 2:38 PM EDT SEQUENTIAL SCREENINGS The [facility] offers sequential screenings for women who are interested in screenings for chromosomal abnormalities and certain defects during a . The sequential screen combines ultrasound and blood tests to determine the risk of chromosomal abnormalities, including Down's Syndrome (Trisomy 21) and Trisomy 18, as well as open neural tube defects including spina bifida. Ultrasound examination is performed between 11 weeks and 13 weeks gestational age. Blood tests are drawn after the ultrasound and again later in the between 15 and 21 weeks gestational age. Please let your physician know if you are interested in this testing. It will require an appointment with our special effects technician. This is not an ultrasound performed by a physician in our office during a routine visit. SIGNS AND SYMPTOMS OF LABOR 1. Contractions every 10 minutes or more often 2. Clear, pink, or brownish fluid (water) leaking from vagina 3. Feeling that baby is pushing down, pressure 4. Low, dull backache 5. Cramps that feel like a period 6. Cramps with or without diarrhea If you notice any of the above symptoms, contact our office at [phone] and ask to speak with a nurse. After hours, you can call doctors registry at [phone] OR call [facility] at [phone] and ask to have the doctor blown film extrusion operator paged. If you consider this an emergency, dial 9--6 or go to your nearest emergency department. NEED HELP? Are you dealing with a violent or abusive relationship? Are you a victim of rape or sexual assult? Call [facility] ([place]) 24 hour Crisis Hotline: 683.958.3453 or 105-497-5617. MANUAL Your Guide to a Healthy manual is now on-line. Visit [email or web address] to download your free copy documented in this encounter [facility] 11-26-2024 Progress note Formatting of t his note might be different from the original. CP CENTERING S: Smita Nguyen is a 29 year old female who presents at 27 weeks gestation for a routinve visit / centering group. Positive movements. Completed GCT. Denies headache, visual changes, chest pain, shortness of breath, vaginal bleeding, leakage of fluid, or dysuria. Feeling well, no complaints. Leaving for vacation next week in [place]. O: See flow sheet Gen: No apparent distress Abd: Gravid, nontender ASSESSMENT/PLAN: 1. 27 weeks gestation of 2. Supervision of normal first , antepartum 3. Other depression 4. History of depression - Continue Lexapro 20 mg PO Daily - Continue vitamin and ASA - Traveling via plane to [place] next week- wearing compression stockings and increase fluid intake - Follows psych. - mood stable - 1 hour GCT, CBC, and RPR today - Rh positive - TDAP declines - LARC form reviewed and signed. Patient declines - Depression screen negative - Opioid screen negative - plan form discussed and given to patient. Patient desires unmedicated - possible water - PTL precautions and kick counts reviewed - RTO- 2 weeks or sooner if needed Hoda Hager APRN.CNM [facility] 11-26-2024 Miscellaneous Notes CP CENTERING S: Smita Nguyen is a 29 year old female who presents at 27 weeks gestation for a routinve visit / centering group. Positive movements. Completed GCT. Denies headache, visual changes, chest pain, shortness of breath, vaginal bleeding, leakage of fluid, or dysuria. Feeling well, no complaints. Leaving for vacation next week in [place]. O: See flow sheet Gen: No apparent distress Abd: Gravid, nontender ASSESSMENT/PLAN: 1. 27 weeks gestation of 2. Supervision of normal first , antepartum 3. Other depression 4. History of depression - Continue Lexapro 20 mg PO Daily - Continue vitamin and ASA - Traveling via plane to [place] next week- wearing compression stockings and increase fluid intake - Follows psych. - mood stable - 1 hour GCT, CBC, and RPR today - Rh positive - TDAP declines - LARC form reviewed and signed. Patient declines - Depression screen negative - Opioid screen negative - plan form discussed and given to patient. Patient desires unmedicated - possible water - PTL precautions and kick counts reviewed - RTO- 2 weeks or sooner if needed Hoda Hager APRN.CNM documented in this encounter [facility] 11-24-2024 Telephone encounter Note Order signed and faxed. Mora Villarreal RN [facility] 11-24-2024 Miscellaneous Notes Order signed and faxed. Mora Villarreal RN Breast pump prescription received from [employer]. Order to Mario Alberto Herrera to sign documented in this encounter [facility] 11-20-2024 Telephone encounter Note Breast pump prescription received from [employer]. Order to Mario Alberto Herrera to sign [facility] 11-12-2024 Instructions Camelia Herrera APRN.CNM - 11/12/2024 2:53 PM EDT 50 gram fresh test 1 HOUR GLUCOLA TEST PREPARATION, EXPLANATION & INSTRUCTIONS The test is performed to detect gestational diabetes mellitus. Some women, when they become , will develop this condition. If left untreated or undetected, diabetes may lead to problems with both your health and your baby's. All OB patients must have the 1 hour Glucola testing between 24 and 28 weeks. Patient is permitted to eat 2 hours prior to Glucola testing. Patient is to arrive at her appointment prepared to drink 50gms of glucose beverage. Blood will be drawn 1 hour after Glucola is consumed. No food, candy, gum, beverages or water may be consumed during the test. No smoking during testing!! Testing is complete after blood is drawn. documented in this encounter [facility] 11-12-2024 Progress note Formatting of t his note might be different from the original. ESAU-S: Smita Nguyen is a 29 year old female who presents at 25w3d with ENE:02/22/2025, by Last Menstrual Period for a routine visit. Denies headache, visual changes, chest pain, shortness of breath, vaginal bleeding, leakage of fluid, or dysuria. Feeling well, no complaints. O: See flow sheet Gen: No apparent distress Abd: Gravid, nontender ASSESSMENT/PLAN: 1. Supervision of normal first , antepartum -Continue PNV -Continue ASA 2. Other depression 3. 25 weeks gestation of -1hr GCT, CBC, and RPR next visit -Tdap vaccine next visit PTL precautions reviewed and when to call RTO in 2 week Camelia Herrera APRN.CNM [facility] 11-12-2024 Miscellaneous Notes ESAU-S: Smita Nguyen is a 29 year old female who presents at 25w3d with ENE:02/22/2025, by Last Menstrual Period for a routine visit. Denies headache, visual changes, chest pain, shortness of breath, vaginal bleeding, leakage of fluid, or dysuria. Feeling well, no complaints. O: See flow sheet Gen: No apparent distress Abd: Gravid, nontender ASSESSMENT/PLAN: 1. Supervision of normal first , antepartum -Continue PNV -Continue ASA 2. Other depression 3. 25 weeks gestation of -1hr GCT, CBC, and RPR next visit -Tdap vaccine next visit PTL precautions reviewed and when to call RTO in 2 week Camelia Herrera APRN.CNM documented in this encounter [facility] 10-28-2024 Instructions Laurie Serra APRN.STONE BELT SANDER - 10/28/2024 11:01 PM EDT We discussed your and mental health: - You are currently 23 weeks , with a due date around February 22. You are planning a water at [facility], but you are open to other options if necessary. - Continue taking Lexapro 30 mg daily as prescribed. This medication does not impact milk supply and is safe to continue during and . A refill has been sent to [facility], and you can pick it up today. - Avoid taking hydroxyzine if you plan to breastfeed, as it can reduce milk supply. If needed, you may use Ativan sparingly as a safety net. If you take Ativan while , consider pumping and discarding one feeding due to its sedative effects. - Continue taking inositol as part of your regimen to help manage anxiety. - You are doing well with cognitive behavioral therapy (CBT) and mindfulness techniques. Continue monthly sessions with your psychologist, and increase the frequency if needed. These therapies are evidence-based to help with anxiety and depression. - Consider restarting progesterone to help manage potential anxiety or mood changes, as there is often a drop in progesterone levels after delivery. Discuss this option with your provider closer to delivery. We discussed your physical health and activity: - You are maintaining excellent physical health by exercising 4-6 days per week. Continue this routine as it is beneficial for your overall well-being. - You are sleeping adequately, though it is not perfect. Continue to prioritize rest as much as possible. - You are eating well and managing your symptoms effectively. We discussed planning: - You are preparing for by educating yourself on vaccines and other topics. Continue this research to make informed decisions. - Your is supportive and has experience with children, which will be helpful during this transition. Ensure he has access to contact me if he has any concerns or questions . - You plan to return to work in May after a 3-month leave. We scheduled your follow-up appointments: - January 02 at 8:30 AM (virtual visit). - March 09 at 11:00 AM (virtual visit). Please continue to take care of yourself and let us know if you have any concerns or questions before your next visit. For those experiencing a suicidal crisis: --call the National Suicide Prevention Lifeline at 524 (007-420-3313) --text the Crisis Text Line (text HOME to 971914) --call 911 and let them know you are having a mental health crisis or go to your nearest Emergency Room for stabilization. --You can also call Mobile Crisis at 737-299-0709. -- You may call the department appointment line at [phone] to schedule your appointment. -- Please call my nurse at [phone] or send me a message in [place] with any questions or concerns between appointments. documented in this encounter [facility] 10-28-2024 Note HNO ID: [id number] Author: LAURIE SERRA APRN.STONE BELT SANDER Service: ? Author Type: Nurse Practitioner Type: Progress Notes Filed: 10/28/2024 23:01 Note Text: FOLLOW UP - PSYCHIATRIC PROGRESS NOTE Visit Type:In person Recording using [employer] software for draft documentation of the visit was discussed with the patient/authorized junior sales representative; all questions welcomed and answered. Patient/authorized junior sales representative agreed to proceed CC: Outpatient follow-up and safety monitoring of previously prescribed psychiatric medication, psychotherapy or other treatment HPI: Patient is a 29-year-old female with a history of anxiety, currently 23 weeks , presenting for follow-up. Patient reports feeling the best she has since 2011, describing her mental state as phenomenal. She attributes this improvement to her current medication regimen, which includes Lexapro 30 mg and inositol. She discontinued progesterone due to recommendations from her midwives at [facility]. She has not needed to use hydroxyzine or Ativan recently but keeps Ativan as a safety net, carrying 1-2 pills with her and keeping the rest at home. She is planning a water at [facility] and is open to alternative delivery methods if necessary. She expresses a desire to be closely monitored due to her current well-being and the potential for anxiety. Patient continues to engage in regular physical activity, attending the gym 4-6 days a week, which she finds beneficial for her mental health. She reports no significant physical health issues, though she experienced fatigue and all-day nausea without vomiting during the first trimester. Her sleep is so-so, but she is not taking any medication for it and denies experiencing vivid dreams or nightmares. 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 She is preparing for the arrival of her baby, cleaning and organizing the nursery, and engaging in nesting behaviors. She is also reading extensively about vaccines to make informed decisions for her child. Her is described as ridiculously laid back and supportive, with experience around children through his nieces and nephews. She mentions a difficult night in April when she learned of her brother and [id number]'s , but she became herself in May, which brought relief. She continues to see her psychologist once a month, engaging in cognitive behavioral therapy and mindfulness practices. She plans to increase the frequency of her therapy sessions if needed . Risks and benefits of the medication, including any black box warnings, were discussed with the patient. Interval Progress: Improved PATIENT DATA: Generalized Anxiety Disorder Scale (FREDO-7) 03/04/2024 06/23/2024 10/27/2024 FREDO - 7 SCORES Score 8 12 12 7 (0-4) minimal anxiety, (5-9) mild anxiety, (10-14) moderate anxiety, (15-21) severe anxiety Patient Health Questionnaire (PHQ-9) 03/04/2024 06/23/2024 10/27/2024 PHQ-9 Score 11 11 11 1 (0-4) minimal depression, (5-9) mild depression, (10-14) moderate depression, (15-19) moderately severe depression, (20-27) severe depression PROMIS Global Health 06/23/2024 10/01/2024 10/27/2024 PROMIS Global Health - (T-Scores - the mean of general population = 50. 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 90 tablet 3 no115/iron/folic acid ( 19 ORAL) Take by mouth once daily. [place] SACCHAROMYCES BOULARDII ORAL INOSITOL ORAL cholecalciferol, vitamin D3, (VITAMIN D3 ORAL) MAGNESIUM GLYCINATE, BULK, MISC escitalopram oxalate (LEXAPRO) 20 mg tablet Take 1.5 tablets by mouth once daily. 135 tablet 0 No current facility-administered medications for this visit. ROS: See HPI PFSH: See HPI VITAL SIGNS: 10/28/24 1113 BP: 113/66 Pulse: 70 SpO2: 98% Weight: 81.2 kg (179 lb) MENTAL STATUS EXAM: Mental Status Exam General/Sensorium: Alert Orientation: AAOx3 Appearance: Appears well groomed and stated age and casually dressed Eye contact: Appropriate Demeanor: Appropriately interactive Motor activity: Calm Speech: Articulate with appropriate rhythm and volume Mood: Happy Affect: Congruent with mood and appropriate Thought process: Within normal limits and linear, logical, and goal-directed Associat (more content not included)... [facility] 10-28-2024 History of Presen t illness Narrative Images from the original note were not included. FOLLOW UP - PSYCHIATRIC PROGRESS NOTE Visit Type:In person Recording using Next [employer] Great[employer] software for draft documentation of the visit was discussed with the patient/authorized junior sales representative; all questions welcomed and answered. Patient/authorized junior sales representative agreed to proceed CC: Outpatient follow-up and safety monitoring of previously prescribed psychiatric medication, psychotherapy or other treatment HPI: Patient is a 29-year-old female with a history of anxiety, currently 23 weeks , presenting for follow-up. Patient reports feeling the best she has since 2011, describing her mental state as phenomenal. She attributes this improvement to her current medication regimen, which includes Lexapro 30 mg and inositol. She discontinued progesterone due to recommendations from her midwives at [facility]. She has not needed to use hydroxyzine or Ativan recently but keeps Ativan as a safety net, carrying 1-2 pills with her and keeping the rest at home. She is planning a water at [facility] and is open to alternative delivery methods if necessary. She expresses a desire to be closely monitored due to her current well-being and the potential for anxiety. Patient continues to engage in regular physical activity, attending the gym 4-6 days a week, which she finds beneficial for her mental health. She reports no significant physical health issues, though she experienced fatigue and all-day nausea without vomiting during the first trimester. Her sleep is so-so, but she is not taking any medication for it and denies experiencing vivid dreams or nightmares. 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 She is preparing for the arrival of her baby, cleaning and organizing the nursery, and engaging in nesting behaviors. She is also reading extensively about vaccines to make informed decisions for her child. Her is described as ridiculously laid back and supportive, with experience around children through his nieces and nephews. She mentions a difficult night in April when she learned of her brother and [id number]'s , but she became herself in May, which brought relief. She continues to see her psychologist once a month, engaging in cognitive behavioral therapy and mindfulness practices. She plans to increase the frequency of her therapy sessions if needed . Risks and benefits of the medication, including any black box warnings, were discussed with the patient. Interval Progress: Improved PATIENT DATA: Generalized Anxiety Disorder Scale (FREDO-7) 03/04/2024 06/23/2024 10/27/2024 FREDO - 7 SCORES Score 8 12 12 7 (0-4) minimal anxiety, (5-9) mild anxiety, (10-14) moderate anxiety, (15-21) severe anxiety Patient Health Questionnaire (PHQ-9) 03/04/2024 06/23/2024 10/27/2024 PHQ-9 Score 11 11 11 1 (0-4) minimal depression, (5-9) mild depression, (10-14) moderate depression, (15-19) moderately severe depression, (20-27) severe depression PROMIS Global Health 06/23/2024 10/01/2024 10/27/2024 PROMIS Global Health - (T-Scores - the mean of general population = 50. 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 90 tablet 3 no115/iron/folic acid ( 19 ORAL) Take by mouth once daily. [place] SACCHAROMYCES BOULARDII ORAL INOSITOL ORAL cholecalciferol, vitamin D3, (VITAMIN D3 ORAL) MAGNESIUM GLYCINATE, BULK, MISC escitalopram oxalate (LEXAPRO) 20 mg tablet Take 1.5 tablets by mouth once daily. 135 tablet 0 No current facility-administered medications for this visit. ROS: See HPI PFSH: See HPI VITAL SIGNS: 10/28/24 1113 BP: 113/66 Pulse: 70 SpO2: 98% Weight: 81.2 kg (179 lb) MENTAL STATUS EXAM: Mental Status Exam General/Sensorium: Alert Orientation: AAOx3 Appearance: Appears well groomed and stated age and casually dressed Eye contact: Appropriate Demeanor: Appropriately interactive Motor activity: Calm Speech: Articulate with appropriate rhythm and volume Mood: Happy Affect: Congruent with mood and appropriate Thought process: Within normal limits and linear, logical, and goal-directed Associations: Normal Thought content: Appropriate, focused on history, symptoms, and management and future goals or plans Suicidal ideation: SI: no Plan: no Intent: no Homicidal ideation: HI: no Plan: no Intent: no Abnormal/psychotic thoughts: Absent Perceptions: She does not appear internally stimulated. Attention: Intact Memory: Short-term: Intact Long-term: Intact Language: Intact Fund of knowledge: Appropriate Insight: Good Judgment: Good DATA REVIEWED: [facility] website checked and validated. All prescriptions have been APPROPRIATELY filled. No suspicious activity was identified. 10/28/2024 by Laurie Serra APRN.STONE BELT SANDER Psychiatric scales, Labs, and Electronic medical record ASSESSMENT & PLAN: 1. 1. FREDO (generalized anxiety disorder) (F41.1) Recurrent major depressive disorder, in full remission (F33.42) Currently well-managed with Lexapro 30 mg and Inositol. No recent use of Hydroxyzine or Ativan. Engaged in regular exercise and cognitive behavioral therapy. - Continue Lexapro 30 mg daily; refill sent to [facility]. - Advised against using Hydroxyzine due to potential impact on milk supply during . - Keep Ativan available as a safety measure; instructed on pump and dump if used during . - Discussed potential reintroduction of progesterone to mitigate anxiety. - Scheduled follow-up appointments: virtual on January 02 at 0830 and virtual on March 09 at 1100. 2. Other obsessive-compulsive disorders (F42.8) Currently able to dismiss fleeting obsessive thoughts without significant distress. - Continue cognitive behavioral therapy and mindfulness practices. - Monitor for any increase in obsessive thoughts . 3. Encounter for long-term (current) use of medications (Z79.899) Maintaining current medication regimen with Lexapro and Inositol. No recent use of Hydroxyzine or Ativan. - Continue current medication regimen. - Refill for Lexapro sent to [facility]. Medical Decision Making: Problems: Moderate: 2+ stable chronic illnesses Risk: Moderate: Moderate risk from testing/treatment and Drug management Medical Decision Making Level: 4 - Moderate ADD ON PSYCHOTHERAPY CODE : No SIGNATURE: Laurie Serra APRN.CNP PATIENT NAME: Smita Nguyen DATE: October 28, 2024 TIME: 11:32 AM documented in this encounter [facility] 10-22-2024 Instructions Marce Bello MA - 10/22/2024 2:35 PM EDT SEQUENTIAL SCREENINGS The [facility] offers sequential screenings for women who are interested in screenings for chromosomal abnormalities and certain defects during a . The sequential screen combines ultrasound and blood tests to determine the risk of chromosomal abnormalities, including Down's Syndrome (Trisomy 21) and Trisomy 18, as well as open neural tube defects including spina bifida. Ultrasound examination is performed between 11 weeks and 13 weeks gestational age. Blood tests are drawn after the ultrasound and again later in the between 15 and 21 weeks gestational age. Please let your physician know if you are interested in this testing. It will require an appointment with our special effects technician. This is not an ultrasound performed by a physician in our office during a routine visit. SIGNS AND SYMPTOMS OF LABOR 1. Contractions every 10 minutes or more often 2. Clear, pink, or brownish fluid (water) leaking from vagina 3. Feeling that baby is pushing down, pressure 4. Low, dull backache 5. Cramps that feel like a period 6. Cramps with or without diarrhea If you notice any of the above symptoms, contact our office at [phone] and ask to speak with a nurse. After hours, you can call doctors registry at [phone] OR call [facility] at [phone] and ask to have the doctor blown film extrusion operator paged. If you consider this an emergency, dial [phone] or go to your nearest emergency department. NEED HELP? Are you dealing with a violent or abusive relationship? Are you a victim of rape or sexual assult? Call [facility] ([place]) 24 hour Crisis Hotline: 452.215.9002 or 475-438-6622. MANUAL Your Guide to a Healthy manual is now on-line. Visit [email or web address] to download your free copy documented in this encounter [facility] 10-22-2024 Progress note Formatting of t his note might be different from the original. CP- CENTERING S: Smita Nguyen is a 29 year old female who presents at 22 weeks gestation for a routine visit/centering group. Not feeling movements to date which causes anxiety. Anterior placenta. Continues to work out and reports feeling the best she has in a long time. Reports mood elevated and feels great physically. Denies headache, visual changes, chest pain, shortness of breath, vaginal bleeding, leakage of fluid, or dysuria. Feeling well, no complaints. O: See flow sheet Gen: No apparent distress Abd: Gravid, nontender ASSESSMENT/PLAN 1. Supervision of normal first 2. 22 weeks gestation of 3. Other depression - Continue Lexapro 20 mg PO Daily - Continues to speak with counselor and seeing psych for medication regulation - vitamin/ ASA daily - RTO 4 weeks or sooner if needed Hoda Hager APRN.CNM [facility] 10-22-2024 Miscellaneous Notes CP- CENTERING S: Smita Nguyen is a 29 year old female who presents at 22 weeks gestation for a routine visit/centering group. Not feeling movements to date which causes anxiety. Anterior placenta. Continues to work out and reports feeling the best she has in a long time. Reports mood elevated and feels great physically. Denies headache, visual changes, chest pain, shortness of breath, vaginal bleeding, leakage of fluid, or dysuria. Feeling well, no complaints. O: See flow sheet Gen: No apparent distress Abd: Gravid, nontender ASSESSMENT/PLAN 1. Supervision of normal first 2. 22 weeks gestation of 3. Other depression - Continue Lexapro 20 mg PO Daily - Continues to speak with counselor and seeing psych for medication regulation - vitamin/ ASA daily - RTO 4 weeks or sooner if needed Hoda Hager APRN.CNM documented in this encounter [facility] 10-08-2024 Instructions Lisandro Rainey MA - 10/08/2024 9:15 AM EDT SEQUENTIAL SCREENINGS The [facility] offers sequential screenings for women who are interested in screenings for chromosomal abnormalities and certain defects during a . The sequential screen combines ultrasound and blood tests to determine the risk of chromosomal abnormalities, including Down's Syndrome (Trisomy 21) and Trisomy 18, as well as open neural tube defects including spina bifida. Ultrasound examination is performed between 11 weeks and 13 weeks gestational age. Blood tests are drawn after the ultrasound and again later in the between 15 and 21 weeks gestational age. Please let your physician know if you are interested in this testing. It will require an appointment with our special effects technician. This is not an ultrasound performed by a physician in our office during a routine visit. SIGNS AND SYMPTOMS OF LABOR 1. Contractions every 10 minutes or more often 2. Clear, pink, or brownish fluid (water) leaking from vagina 3. Feeling that baby is pushing down, pressure 4. Low, dull backache 5. Cramps that feel like a period 6. Cramps with or without diarrhea If you notice any of the above symptoms, contact our office at [phone] and ask to speak with a nurse. After hours, you can call doctors registry at [phone] OR call [facility] at [phone] and ask to have the doctor blown film extrusion operator paged. If you consider this an emergency, dial 9-1-0 or go to your nearest emergency department. NEED HELP? Are you dealing with a violent or abusive relationship? Are you a victim of rape or sexual assult? Call [facility] ([facility] 24 hour Crisis Hotline: 660.927.8360 or 707-962-5499. MANUAL Your Guide to a Healthy manual is now on-line. Visit [email or web address] to download your free copy documented in this encounter [facility] 10-08-2024 Progress note Formatting of t his note might be different from the original. S: Smita Nguyen is a 29 year old female who presents at 20 weeks gestation for a routine visit. Just completed anatomy US. No movements to date. Was told she has anterior placenta. Denies headache, visual changes, chest pain, shortness of breath, vaginal bleeding, leakage of fluid, or dysuria. Feeling well, no complaints. O: See flow sheet Gen: No apparent distress Abd: Gravid, nontender ASSESSMENT/PLAN: 1. Supervision of normal first , antepartum 2. History of depression 3. 20 weeks gestation of - Continue vitamin daily - Continue Lexapro 20 mg PO daily- has follow up appointment with psych. Coming up - Continue ASA PO at bedtime - RTO 4 weeks or sooner if needed Hoda Hager APRN.CNM [facility] 10-08-2024 Miscellaneous Notes S: Smita Nguyen is a 29 year old female who presents at 20 weeks gestation for a routine visit. Just completed anatomy US. No movements to date. Was told she has anterior placenta. Denies headache, visual changes, chest pain, shortness of breath, vaginal bleeding, leakage of fluid, or dysuria. Feeling well, no complaints. O: See flow sheet Gen: No apparent distress Abd: Gravid, nontender ASSESSMENT/PLAN: 1. Supervision of normal first , antepartum 2. History of depression 3. 20 weeks gestation of - Continue vitamin daily - Continue Lexapro 20 mg PO daily- has follow up appointment with psych. Coming up - Continue ASA PO at bedtime - RTO 4 weeks or sooner if needed Hoda Hager APRN.CNM documented in this encounter [facility] 09-29-2024 Telephone encounter Note Patient scheduled for Centering. Lisandro Rainey MA [facility] 09-29-2024 Miscellaneous Notes Patient scheduled for Centering. Lisandro Rainey MA documented in this encounter [facility] 09-23-2024 Telephone encounter Note Covering for regular provider Laurie Serra. Will approve fill at this time [facility] 09-23-2024 Miscellaneous Notes Covering for regular provider Laurie Serra. Will approve fill at this time Last: 06/23/24 TREATMENT PLAN: Continue Lexapro 30 mg at the same dose to address mood and anxiety symptoms. Utilize Hydroxyzine and Ativan as needed to manage anxiety symptoms. Continue engagement in individual and couple's psychotherapy. Follow up in 3 months or sooner if needed. Next: TYRESE msg sent to schedule documented in this encounter [facility] 09-23-2024 Telephone encounter Note Last: 06/23/24 TREATMENT PLAN: Continue Lexapro 30 mg at the same dose to address mood and anxiety symptoms. Utilize Hydroxyzine and Ativan as needed to manage anxiety symptoms. Continue engagement in individual and couple's psychotherapy. Follow up in 3 months or sooner if needed. Next: TYRESE msg sent to schedule [facility] 09-10-2024 Progress note Formatting of t his note might be different from the original. S: Smita Nguyen is a 29 year old female who presents at 16 weeks gestation for a routine visit. No movement to date. Denies headache, visual changes, chest pain, shortness of breath, vaginal bleeding, leakage of fluid, or dysuria. Feeling well, no complaints. O: See flow sheet Gen: No apparent distress Abd: Gravid, non tender ASSESSMENT/PLAN: 1. Supervision of normal first , antepartum 2. History of depression 3. TMJ (temporomandibular joint syndrome) 4. History of Lyme disease 5. 16 weeks gestation of - Continue vitamin and ASA daily - Continue Lexapro 20 mg PO Daily - Continues to take oral Progesterone and again advised to stop taking - Reports mood as stable- decreased anxiety - RTO 4 weeks for anatomy US and KING Hager APRN.CNM [facility] Work Phone: 09-10-2024 Miscellaneous Notes S: Smita Nguyen is a 29 year old female who presents at 16 weeks gestation for a routine visit. No movement to date. Denies headache, visual changes, chest pain, shortness of breath, vaginal bleeding, leakage of fluid, or dysuria. Feeling well, no complaints. O: See flow sheet Gen: No apparent distress Abd: Gravid, non tender ASSESSMENT/PLAN: 1. Supervision of normal first , antepartum 2. History of depression 3. TMJ (temporomandibular joint syndrome) 4. History of Lyme disease 5. 16 weeks gestation of - Continue vitamin and ASA daily - Continue Lexapro 20 mg PO Daily - Continues to take oral Progesterone and again advised to stop taking - Reports mood as stable- decreased anxiety - RTO 4 weeks for anatomy US and KING Hager APRN.CNM documented in this encounter [facility] 09-10-2024 Instructions Lisandro Rainey MA - 09/10/2024 3:11 PM EDT SEQUENTIAL SCREENINGS The [facility] offers sequential screenings for women who are interested in screenings for chromosomal abnormalities and certain defects during a . The sequential screen combines ultrasound and blood tests to determine the risk of chromosomal abnormalities, including Down's Syndrome (Trisomy 21) and Trisomy 18, as well as open neural tube defects including spina bifida. Ultrasound examination is performed between 11 weeks and 13 weeks gestational age. Blood tests are drawn after the ultrasound and again later in the between 15 and 21 weeks gestational age. Please let your physician know if you are interested in this testing. It will require an appointment with our special effects technician. This is not an ultrasound performed by a physician in our office during a routine visit. SIGNS AND SYMPTOMS OF LABOR 1. Contractions every 10 minutes or more often 2. Clear, pink, or brownish fluid (water) leaking from vagina 3. Feeling that baby is pushing down, pressure 4. Low, dull backache 5. Cramps that feel like a period 6. Cramps with or without diarrhea If you notice any of the above symptoms, contact our office at [phone] and ask to speak with a nurse. After hours, you can call doctors registry at [phone] OR call [facility] at [phone] and ask to have the doctor blown film extrusion operator paged. If you consider this an emergency, dial 9-1-3 or go to your nearest emergency department. NEED HELP? Are you dealing with a violent or abusive relationship? Are you a victim of rape or sexual assult? Call [facility] ([place]) 24 hour Crisis Hotline: 376.282.2378 or 692-874-2300. MANUAL Your Guide to a Healthy manual is now on-line. Visit [email or web address] ancyGuide to download your free copy documented in this encounter [facility] 08-15-2024 Instructions Camelia Herrera APRN.CNM - 08/15/2024 2:34 PM EDT Low Dose Aspirin This sheet talks about exposure to low dose aspirin in and while . This information should not take the place of medical care and advice from your healthcare provider.\ What is low dose aspirin? Aspirin is also known as acetylsalicylic acid. It is a common prescription and jrgq-kkb-yrmqard medication similar to other non-steroidal inflammatory drugs (NSAIDs) like ibuprofen (Motrin ) and naproxen (Aleve ). Aspirin reduces inflammation, fever, and pain. Aspirin can prevent blood clots, which can make it useful in treating or preventing conditions like heart attacks and strokes. Low dose aspirin ranges from 60 to 150 mg daily, but the usual dose taken during to treat or prevent certain conditions is 81 mg daily.Regular strength and high strength aspirin and other NSAIDs are NOT preferred pain relievers during .Sometimes when people find out they are , they think about changing how they take their medication, or stopping their medication altogether. However, it is important to talk with your healthcare providers before making any changes to how you take this medication. Your healthcare providers can talk with you about the benefits of treating your condition and the risks of untreated illness during . I take low dose aspirin. Can it make it harder for me to get ? Low dose aspirin is not expected to make it harder to get . A study that included people who had 1 or 2 documented losses then asked to take daily low dose aspirin found that taking low dose aspirin at least 4 days a week increased the chance of a . Does taking low dose aspirin increase the chance for miscarriage? Miscarriage can occur in any . Taking low doses of aspirin is not thought to increase the chance of miscarriage. Some studies have shown that taking low dose aspirin before may help lower the chance of miscarriage in some people who have had one or more miscarriages before 20 weeks of . These findings are similar to studies that showed improved outcomes in people undergoing assisted reproductive technologies (fertility treatments) and were treated with low dose aspirin prior to implantation of the fertilized egg into the uterus. Does taking low dose aspirin increase the chance of defects? Every starts out with a 3-5% chance of having a defect. This is called the background risk. Studies on the use of low dose aspirin during have not found a higher chance of defects. Does taking low dose aspirin in increase the chance of other related problems? Taking low dose aspirin as directed by a healthcare provider is not expected to cause other problems. Studies have shown that low dose aspirin might improve outcomes in some people by increasing blood flow to and reducing inflammation or swelling in the uterus. Studies have also shown that low dose aspirin might lower the chances for preeclampsia (dangerously high blood pressure and complications) in people who are at high risk for this condition. However, people who are should only take low dose aspirin if their healthcare provider recommends it. Does taking low dose aspirin in affect future behavior or learning for the child? There are not many studies about long-term effects for children exposed to low dose aspirin during . However, studies have not found an increased chance for problems with physical or mental development in infants at 18 months of age. A study that looked at children up to 5 years of age who were born very early (before 33 weeks) and who were exposed to low dose aspirin during did not find an effect on their learning or behavior compared to children who were not exposed to low dose aspirin during . while taking low dose aspirin: The occasional use of low dose aspirin (75 mg daily to below 300 mg daily) is not expected to increase risks to a infant. Only small amounts of low dose aspirin enter the breast milk and adverse effects have not been reported in breastfed newborns or older infants. Healthcare providers might recommend low dose aspirin in some people during to treat certain medical conditions. However, regular strength aspirin (over 325 mg) is not preferred during . Aspirin eliminates from an s body more slowly than from an adult s body, so aspirin levels in the s body could build up over time with long-term use of aspirin. Using high dose aspirin can lower the body s ability to clot blood(could lead to easier bruising or bleeding). This is not likely to happen with low dose aspirin. Talk with your Healthcare provider about your questions. If a male takes low dose aspirin, could it affect fertility (ability to get partner ) or increase the chance of defects? There is very limited information about the effects of low dose aspirin on male reproduction. One study looked at men who attended an infertility clinic and were taking non-prescribed low dose aspirin at different doses and frequencies for at least six months. The study reported a decrease in the amount and quality of sperm, especially in those who used higher amounts of aspirin. Generally, it is not considered necessary for men to stop using low dose aspirin before trying to get their partner . However, men undergoing fertility treatment may want to talk with their healthcare providers about whether or not they need to stop taking aspirin. In general, exposures that fathers or sperm donors have are unlikely to increase the risks to a . For more information, please see the [employer] fact sheet Paternal Exposures at [email or web address]-sh [email or web address]-qfaysiyit-hrlhpmqs y/. SEQUENTIAL SCREENINGS The [facility] offers sequential screenings for women who are interested in screenings for chromosomal abnormalities and certain defects during a . The sequential screen combines ultrasound and blood tests to determine the risk of chromosomal abnormalities, including Down's Syndrome (Trisomy 21) and Trisomy 18, as well as open neural tube defects including spina bifida. Ultrasound examination is performed between 11 weeks and 13 weeks gestational age. Blood tests are drawn after the ultrasound and again later in the between 15 and 21 weeks gestational age. Please let your physician know if you are interested in this testing. It will require an appointment with our special effects technician. This is not an ultrasound performed by a physician in our office during a routine visit. SIGNS AND SYMPTOMS OF LABOR 1. Contractions every 10 minutes or more often 2. Clear, pink, or brownish fluid (water) leaking from vagina 3. Feeling that baby is pushing down, pressure 4. Low, dull backache 5. Cramps that feel like a period 6. Cramps with or without diarrhea If you notice any of the above symptoms, contact our office at [phone] and ask to speak with a nurse. After hours, you can call doctors registry at [phone] OR call [facility] at [phone] and ask to have the doctor blown film extrusion operator paged. If you consider this an emergency, dial 9-1-1 or go to your nearest emergency department. NEED HELP? Are you dealing with a violent or abusive relationship? Are you a victim of rape or sexual assult? Call [facility] ([facility] 24 hour Crisis Hotline: 716.714.9329 or 475-689-8791. MANUAL Your Guide to a Healthy manual is now on-line. Visit [email or web address] [email or web address] to download your free copy documented in this encounter [facility] 08-15-2024 Progress note Formatting of t his note might be different from the original. ESAU-S: Smita Nguyen is a 29 year old female who presents at 12w5d with ENE:02/22/2025, by Last Menstrual Period for a routine visit. Denies headache, visual changes, chest pain, shortness of breath, vaginal bleeding, leakage of fluid, or dysuria. Feeling well, no complaints. O: See flow sheet Gen: No apparent distress Abd: Gravid, nontender ASSESSMENT/PLAN: 1. Supervision of normal first , antepartum -First trimester US today -PN labs today with NIPT and carrier screening -Recommend starting ASA 81mg PO at HS -Continues oral progesterone, recommend to stop at this time. -Desires Centering and Midwifery Care 2. Depression -Coping well, Continue Lexapro PTL precautions reviewed and when to call RTO in 4 weeks Camelia Herrera APRN.CNM [facility] 08-15-2024 Miscellaneous Notes ESAU-S: Smita Nguyen is a 29 year old female who presents at 12w5d with ENE:02/22/2025, by Last Menstrual Period for a routine visit. Denies headache, visual changes, chest pain, shortness of breath, vaginal bleeding, leakage of fluid, or dysuria. Feeling well, no complaints. O: See flow sheet Gen: No apparent distress Abd: Gravid, nontender ASSESSMENT/PLAN: 1. Supervision of normal first , antepartum -First trimester US today -PN labs today with NIPT and carrier screening -Recommend starting ASA 81mg PO at HS -Continues oral progesterone, recommend to stop at this time. -Desires Centering and Midwifery Care 2. Depression -Coping well, Continue Lexapro PTL precautions reviewed and when to call RTO in 4 weeks Camelia Herrera APRN.CNM documented in this encounter [facility] 07-18-2024 Instructions Mary Kay Wiseman LPN - 07/18/2024 7:57 AM EDT Please select the following link to access the [facility] Your Guide to a Healthy . [email or web address] documented in this encounter [facility] 07-15-2024 Note HNO ID: [id number] Author: YASMEEN VERA APRN.[employer] Service: ? Author Type: Nurse Practitioner Type: Progress Notes Filed: 07/18/2024 10:03 Note Text: Patient declined engagement quality consultant. *Pt has a history of depression/anxiety diagnosed in 2011. Doing well on medication. Sees phsychologist and psychiatrist (Dr Murray) Discussed increased risks of depression during and and importance of reporting the development or worsening of symptoms should they occur. Patient states she had suicidal and homicidal thoughts in 2022. She states she still has thoughts that come and go but not like before. It's a huge progress. 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 She would like to arrange for umbilical cord testing . Evie Avila will assist. Patient aware any cord blood testing would need to be arranged prior to delivery. Considering genetic carrier screening testing and aneuploidy screening INITIAL OB ASSESSMENT HPI: Smita is a 29 year old White here to establish Obstetrical Care. Patient's last menstrual period was 05/18/2024 (exact date). from OB Dating Form. was planned Complaints: No OB History Gravida1 Para0 Term0 Preterm0 AB0 Living0 SAB0 IAB0 Ectopic0 Multiple0 Live Births0 Previous history: Prior : never History of 4th degree laceration: No History of shoulder dystocia: No History of Hypertensive disorders including pre-eclampsia or gestational hypertension: No History of gestational diabetes: No Patient's Risk Screening for delivery: Have you had a prior dooley between 20w and 36w6d? No How many pregnancies have you had before? 0 Did you have a previous baby with a GBS Infection? No Please select all that apply for any prior : N/A MEDICAL/PSYCHOSOCIAL HISTORY: History of hemorrhage or bleeding concerns: No Thyroid Disease: No History of chronic hypertension: No History of pre-existing diabetes: No No results found for: ABORHD No weight on file for this encounter. Last Pap: 02/08/2024 History of abnormal pap: No Prior treatment for cervical dysplasia: none. Last HPV: 02/08/2024 History of STDs: None Partner History of STDs: None Did you have a partner with Herpes? No Tobacco use: No E-Cigarette/Vaping Use: No Caffeine use: Yes drinks 1-2 espresso 3-4 times a week Drug use: No Alcohol use: No Multivitamin with Folic acid: Yes Would refuse blood transfusion if medically necessary: No Social Needs: How often does this describe you? I don't have enough money to pay my bills: Never Within the past 12 months, have you worried that your food would run out before you had money to buy more? Never In the past 12 months, has lack of reliable transportation kept you from going to medical appointments or work, or from getting things needed for daily living? Never In the past 12 months, have you had any concerns about having a place to live, or about the condition or quality of your housing? Never Would you like more information on any of the following (please check all that apply)? Centering (group care classes) Social History: Do you have any history of depression, anxiety, PTSD, or other mood problems? Yes Do you have a history of abuse or trauma that may impact your experience? No Are you currently employed? Yes Depression/Anxiety Screening: denies symptoms of depression. OB Depression and Anxiety Screening- This Encounter (since 07/14/2024) Over the past 2 weeks have you felt down, depressed, or hopeless? Negative Over the past two weeks, have you felt little interest or pleasure in doing things?? Negative Feeling nervous, anxious or on edge 1-Several days Not being able to stop or control worrying 0-Not al all Anxiety Pre-Screening Total (If >/= 3 additional questions will be reviewed) 1 Genetic Screening: Partner present: No Patient verbalized knowledge of partner family health history: No Do you or your partner have any personal or family history of defects not previously discussed: No Do you have history of a complicated by anomaly, genetic condition, or demise: No Preeclampsia Risk Screening: Screening for prevention of preeclampsia: High risk factors: None Moderate risk ractors: Nulliparity OB Risk Screening: Completed, no positive findings documented. 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 135 tablet 0 SACCHAROMYCES BOULARDII O (more content not included)... [facility] 07-15-2024 History of Presen t illness Narrative Patient declined engagement quality consultant. *Pt has a history of depression/anxiety diagnosed in 2011. Doing well on medication. Sees phsychologist and psychiatrist (Dr Murray) Discussed increased risks of depression during and and importance of reporting the development or worsening of symptoms should they occur. Patient states she had suicidal and homicidal thoughts in 2022. She states she still has thoughts that come and go but not like before. It's a huge progress. 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 She would like to arrange for umbilical cord testing . Evie Avila will assist. Patient aware any cord blood testing would need to be arranged prior to delivery. Considering genetic carrier screening testing and aneuploidy screening INITIAL OB ASSESSMENT HPI: Smita is a 29 year old White here to establish Obstetrical Care. Patient's last menstrual period was 05/18/2024 (exact date). from OB Dating Form. was planned Complaints: No OB History Gravida1 Para0 Term0 Preterm0 AB0 Living0 SAB0 IAB0 Ectopic0 Multiple0 Live Births0 Previous history: Prior : never History of 4th degree laceration: No History of shoulder dystocia: No History of Hypertensive disorders including pre-eclampsia or gestational hypertension: No History of gestational diabetes: No Patient's Risk Screening for delivery: Have you had a prior dooley between 20w and 36w6d? No How many pregnancies have you had before? 0 Did you have a previous baby with a GBS Infection? No Please select all that apply for any prior : N/A MEDICAL/PSYCHOSOCIAL HISTORY: History of hemorrhage or bleeding concerns: No Thyroid Disease: No History of chronic hypertension: No History of pre-existing diabetes: No No results found for: ABORHD No weight on file for this encounter. Last Pap: 02/08/2024 History of abnormal pap: No Prior treatment for cervical dysplasia: none. Last HPV: 02/08/2024 History of STDs: None Partner History of STDs: None Did you have a partner with Herpes? No Tobacco use: No E-Cigarette/Vaping Use: No Caffeine use: Yes drinks 1-2 espresso 3-4 times a week Drug use: No Alcohol use: No Multivitamin with Folic acid: Yes Would refuse blood transfusion if medically necessary: No Social Needs: How often does this describe you? I don't have enough money to pay my bills: Never Within the past 12 months, have you worried that your food would run out before you had money to buy more? Never In the past 12 months, has lack of reliable transportation kept you from going to medical appointments or work, or from getting things needed for daily living? Never In the past 12 months, have you had any concerns about having a place to live, or about the condition or quality of your housing? Never Would you like more information on any of the following (please check all that apply)? Centering (group care classes) Social History: Do you have any history of depression, anxiety, PTSD, or other mood problems? Yes Do you have a history of abuse or trauma that may impact your experience? No Are you currently employed? Yes Depression/Anxiety Screening: denies symptoms of depression. OB Depression and Anxiety Screening- This Encounter (since 07/14/2024) Over the past 2 weeks have you felt down, depressed, or hopeless? Negative Over the past two weeks, have you felt little interest or pleasure in doing things? Negative Feeling nervous, anxious or on edge 1-Several days Not being able to stop or control worrying 0-Not al all Anxiety Pre-Screening Total (If >/= 3 additional questions will be reviewed) 1 Genetic Screening: Partner present: No Patient verbalized knowledge of partner family health history: No Do you or your partner have any personal or family history of defects not previously discussed: No Do you have history of a complicated by anomaly, genetic condition, or demise: No Preeclampsia Risk Screening: Screening for prevention of preeclampsia: High risk factors: None Moderate risk ractors: Nulliparity OB Risk Screening: Completed, no positive findings documented. 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 135 tablet 0 SACCHAROMYCES BOULARDII ORAL INOSITOL ORAL cholecalciferol, vitamin D3, (VITAMIN D3 ORAL) MAGNESIUM GLYCINATE, BULK, MISC cyclobenzaprine (FLEXERIL) 10 mg tablet Take 10 mg by mouth daily at bedtime. (Patient not taking: Reported on 07/15/2024) No current facility-administered medications for this visit. Allergies As of Date: 07/18/2024 Allergen Noted Reaction SULFAMETHOXAZOLE-TRIMETHOPRIM 09/26/2016 Rash AZITHROMYCIN 10/30/2023 Rash, Hives, and GI Upset BUSPIRONE 01/29/2023 Mental Status Change CEFTRIAXONE 01/08/2015 Other: See Comments ERYTHROMYCIN BASE 05/17/2015 Rash MORPHINE 05/02/2022 GI Upset Fully Assessed 06/13/2024 Does patient have penicillin allergy: No REVIEW OF SYSTEMS: GENERAL: Negative for: Fever or Chills HEENT: Negative for: Headache, Impaired Vision, Ringing in Ears, Nosebleeds NECK: Negative for: Swelling, Pain, Stiffness RESPIRATORY: Negative for: Cough, Shortness of breath, Wheezing GASTROINTESTINAL: Negative for: Heartburn, Constipation, Diarrhea, Blood in stool, Vomiting and Positive for: Nausea MUSCULOSKELETAL: Negative for: Muscle or joint pain, stiffness, Joint swelling NEUROLOGIC/PSYCHIATRIC: Negative for: Weakness, Paralysis, Numbness, Tingling, Tremor, Anxiety, Depression, Memory loss SKIN: Negative for: Rash, Itching GENITOURINARY: Negative for: vaginal itching, vaginal discharge, hematuria or dysuria SENSITIVE EXAM: The sensitive examination was discussed with the Patient or Patient's Authorized Seasonal Greenery Bundler. As applicable, any other physician, advance practice provider, medical student, or other health professional student that will be observing or involved in the sensitive examination for educational or training purposes was discussed with the Patient or Authorized Seasonal Greenery Bundler. The Patient or Authorized Seasonal Greenery Bundler has agreed to proceed with the sensitive examination. (Sensitive examination includes inspection and/or palpation of the breasts, pelvis, prostate and anorectal regions). PHYSICAL EXAM: LMP 05/18/2024 GENERAL: pleasant in no apparent distress DERMATOLOGY: Normal, without lesions, non-icteric, and non-hirsute NECK: Supple, full range of motion, no adenopathy, and thyroid normal CHEST: Normal inspiratory effort BREAST: soft, non-tender, symmetric, no dominant mass, normal nipple-areolar complex, no lymphadenopathy, and no nipple discharge ABDOMEN: soft, non-tender, and no masses NEURO: alert and oriented x3,exam grossly non-focal PELVIS: External genitalia normal without lesions. Perineal body intact. No vaginal or cervical lesions. Cervix closed. No adnexal masses or tenderness. Clinical Pelvimetry: Pelvimetry clinically assessed as adequate Limited OB ultrasound exam: single intrauterine and POCUS performed. +cardiac activity, CRL consistent with LMP. Yasmeen Vera, MELANIE.STONE BELT SANDER SBIRT Smita Nguyen was given the 4P's screening tool. Smita answered No to all the questions, the result is determined to be negative. ASSESSMENT: 29 year old at 8w2d wks gestational age PLAN: 1) Patient oriented to practice. Patient given new OB orientation folder. Discussed nutrition, folic acid supplementation, dietary guidelines, exercise, smoking, alcohol, caffeine, and drug use. Discussed gestational weight gain guidelines. Discussed routine OB labs including STD/HIV. Discussed how to access Your guide to a health and the Painter Touch Up. Reviewed midwifery and polytechnic registrar services that are available. 2) Screening: Hemoglobin A1C: ordered Baby Aspirin: The patient has been counseled about the potential benefits of low dose aspirin in and our recommendation that this be offered to all patients, regardless of whether they meet the high risk criteria specified above. She Accepts Aneuploidy Screening: Discussed aneuploidy screening, nuchal translucency/first trimester early anatomy ultrasound and NIPT. The risks/benefits and limitations of NIPT/aneuploidy screening were reviewed including the potential for false negative and false positive results. The availability of genetic counseling was reviewed. Information on aneuploidy screening was provided. The patient chooses to proceed with First trimester early anatomy ultrasound (12-13w6d) and NIPT (10 weeks) Myriad Carrier Screening: Discussed myriad carrier screening. We discussed the availability of professional-society guided carrier screening and reviewed the conditions screened and limitations of screening. The availability of genetic counseling was reviewed. Information on carrier screening was provided. The patient Declines 3) Patient offered option of Virtual Visits. Patient unsure. May consider in future. Follow up in 4 weeks or sooner prn. Yasmeen Vera APRN.CNP documented in this encounter [facility] 07-15-2024 Telephone encounter Note Pt called back for intake questions. Informed her MA is unavailable at this time; however, message will be sent if she is available between patients tomorrow, she may be able to call-Pt states she is available tomorrow. Suzanne notified. However, did inform Pt that if Deann is unable to return call, we ask that she come 30 minutes prior to appt for intake questions and to arrive with full bladder. Pt voiced understanding. Pamela Cooper RN [facility] 07-15-2024 Miscellaneous Notes Pt called back for intake questions. Informed her MA is unavailable at this time; however, message will be sent if she is available between patients tomorrow, she may be able to call-Pt states she is available tomorrow. Suzanne notified. However, did inform Pt that if Deann is unable to return call, we ask that she come 30 minutes prior to appt for intake questions and to arrive with full bladder. Pt voiced understanding. Pamela Cooper RN Attempted to contact patient by phone number listed in chart to go over new ob intake questions. No answer. Had to leave a voicemail. Patient was advised to come in 30 minutes early to her appointment to complete if she is unable to speak to someone. Deann Perez MA documented in this encounter [facility] 07-15-2024 Telephone encounter Note Attempted to contact patient by phone number listed in chart to go over new ob intake questions. No answer. Had to leave a voicemail. Patient was advised to come in 30 minutes early to her appointment to complete if she is unable to speak to someone. Deann Perez MA [facility] 06-23-2024 Instructions Laurie Serra APRN.CNP - 06/23/2024 10:47 PM EDT TREATMENT PLAN: Continue Lexapro 30 mg at the same dose to address mood and anxiety symptoms. Utilize Hydroxyzine and Ativan as needed to manage anxiety symptoms. Continue engagement in individual and couple's psychotherapy. Follow up in 3 months or sooner if needed. For those experiencing a suicidal crisis: --call the National Suicide Prevention Lifeline at 988 (373.407.6006) --text the Crisis Text Line (text HOME to 907019) --call 211 and let them know you are having a mental health crisis or go to your nearest Emergency Room for stabilization. --You can also call Mobile Crisis at [phone]. -- You may call the department appointment line at [phone] to schedule your appointment. -- Please call my nurse at [phone] or send me a message in Kleo with any questions or concerns between appointments. documented in this encounter [facility] 06-23-2024 Note HNO ID: [id number] Author: LAURIE SERRA APRN.CNP Service: ? Author Type: Nurse Practitioner Type: Progress Notes Filed: 06/23/2024 22:47 Note Text: FOLLOW UP - PSYCHIATRIC PROGRESS NOTE PATIENT: Smita Nguyen DATE: June 23, 2024 Visit Type: Virtual Visit utilizing two-way audio and video for at least a portion of the visit. Consent for virtual visit obtained verbally. Confidentiality limitations with virtual visits reviewed with the patient and guardian, if present, who have accepted the risk verbally prior to proceeding with encounter. I have communicated my name and active licensure. The patient's identity and physical location were verified at the time of this visit. Either the patient or their legal junior sales representative has been informed of the risks and benefits of -- and alternatives to -- treatment through a remote evaluation and consents to proceed with the evaluation remotely. All information is from Patient report except when noted. This evaluation is NOT intended for forensic, disability or child custody purposes. CC: Presenting today for follow up regarding psychiatric medication management. HPI: Treatment Plan from Last Visit on 03/06/2024: TREATMENT PLAN: Continue Lexapro at the 30 mg dose with the plan to trial a decrease at the next appointment due reduce the metabolic and sexual side effect burden. Continue to Utilize Hydroxyzine and Ativan as needed to manage anxiety and sleep concerns. Did not request a refill at this time. Continue on the supplements recommended by OB and inositol to manage OCD symptoms. Continue individual and couple's therapy. Follow up in 2 months or sooner if needed. Today Smita shares that I am doing okay. is going to switch to a new insurance at the end of July. Continues to engage in individual and couple's counseling. Reports this to be beneficial. Struggled with the news of her brother and sister in law expecting. She has been withdrawing from them. Found out yesterday that brother is going to have a girl. This was triggering for her. It continues to be really hard for her to be around her brother and sister in law. She has met with an OB provider for counseling. Has been told to stop her progesterone supplement. OB is wondering if the progesterone levels are too high. Patient has been ovulating regularly. Has started to ween off the progesterone. Now taking 200 mg instead of 300 mg. She has stayed on the Lexapro 30 mg. Does feel like she needs this dosage currently to help address her anxiety and mood symptoms currently. She has not taken Ativan or Hydroxyzine to manage severe anxiety symptoms. Intrusive thoughts have been very fleeting and infrequent. Interval Progress: Slightly worse primarily due to psychosocial stressors PATIENT DATA: Generalized Anxiety Disorder Scale (FREDO-7) 01/21/2024 03/04/2024 06/23/2024 FREDO - 7 SCORES Score 8 8 12 12 (0-4) minimal anxiety, (5-9) mild anxiety, (10-14) moderate anxiety, (15-21) severe anxiety Patient Health Questionnaire (PHQ-9) 01/21/2024 03/04/2024 06/23/2024 PHQ-9 Score 11 11 11 11 (0-4) minimal depression, (5-9) mild depression, (10-14) moderate depression, (15-19) moderately severe depression, (20-27) severe depression PAST MEDICAL HISTORY Diagnosis Date Depression Generalized anxiety disorder Infection, bartonella 07/2023 TMJ arthritis PAST SURGICAL HISTORY Procedure Laterality Date EXTENSIVE JAW SURGERY ALLERGIES Allergen Reactions Sulfamethoxazole-Tr* Rash Azithromycin Rash, Hives, GI Upset Buspirone Mental Status Change Ceftriaxone Other: See Comments Erythromycin Base Rash Morphine GI Upset Current Outpatient Medications on File Prior to Visit Medication Sig escitalopram oxalate (LEXAPRO) 20 mg tablet Take 1.5 tablets by mouth once daily. progesterone micronized (PROMETRIUM) 100 mg capsule Take 3 capsules by mouth once daily. Used for mood. Progesterone - Compound vitamin B complex with C-FA-CU-ZN renal vitamins (DIATX ZN) 5-1.5-25 mg tab Take 1 tablet by mouth once daily. (Patient not taking: Reported on 05/07/2024) SACCHAROMYCES BOULARDII ORAL INOSITOL ORAL cholecalciferol, vitamin D3, (VITAMIN D3 ORAL) MAGNESIUM GLYCINATE, BULK, MISC cyclobenzaprine (FLEXERIL) 10 mg tablet Take 10 mg by mouth daily at bedtime. No current facility-administered medications on file prior to visit. ROS: See HPI PFSH: See HPI VITAL SIGNS: There were no vitals filed for this visit. Last 3 Encounter BP Readings: Date: BP: 06/13/2024 114/76 05/07/2024 110/60 03/28/2024 110/74 MENTAL STATUS EXAMINATION: Appearance: Casually dressed, well groomed Behavior: Behaves appropriately during the encounter Social relatedness: anxious Speech/Language: The patient demonstrates appropriate tone, prosody, jerry, phonetics, and syntax Mood: sad and anxious Affect: Full and appropri (more content not included)... [facility] 06-23-2024 History of Presen t illness Narrative Images from the original note were not included. FOLLOW UP - PSYCHIATRIC PROGRESS NOTE PATIENT: Smita Nguyen DATE: June 23, 2024 Visit Type: Virtual Visit utilizing two-way audio and video for at least a portion of the visit. Consent for virtual visit obtained verbally. Confidentiality limitations with virtual visits reviewed with the patient and guardian, if present, who have accepted the risk verbally prior to proceeding with encounter. I have communicated my name and active licensure. The patient's identity and physical location were verified at the time of this visit. Either the patient or their legal junior sales representative has been informed of the risks and benefits of -- and alternatives to -- treatment through a remote evaluation and consents to proceed with the evaluation remotely. All information is from Patient report except when noted. This evaluation is NOT intended for forensic, disability or child custody purposes. CC: Presenting today for follow up regarding psychiatric medication management. HPI: Treatment Plan from Last Visit on 03/06/2024: TREATMENT PLAN: Continue Lexapro at the 30 mg dose with the plan to trial a decrease at the next appointment due reduce the metabolic and sexual side effect burden. Continue to Utilize Hydroxyzine and Ativan as needed to manage anxiety and sleep concerns. Did not request a refill at this time. Continue on the supplements recommended by OB and inositol to manage OCD symptoms. Continue individual and couple's therapy. Follow up in 2 months or sooner if needed. Today Smita shares that I am doing okay. is going to switch to a new insurance at the end of July. Continues to engage in individual and couple's counseling. Reports this to be beneficial. Struggled with the news of her brother and sister in law expecting. She has been withdrawing from them. Found out yesterday that brother is going to have a girl. This was triggering for her. It continues to be really hard for her to be around her brother and sister in law. She has met with an OB provider for counseling. Has been told to stop her progesterone supplement. OB is wondering if the progesterone levels are too high. Patient has been ovulating regularly. Has started to ween off the progesterone. Now taking 200 mg instead of 300 mg. She has stayed on the Lexapro 30 mg. Does feel like she needs this dosage currently to help address her anxiety and mood symptoms currently. She has not taken Ativan or Hydroxyzine to manage severe anxiety symptoms. Intrusive thoughts have been very fleeting and infrequent. Interval Progress: Slightly worse primarily due to psychosocial stressors PATIENT DATA: Generalized Anxiety Disorder Scale (FREDO-7) 01/21/2024 03/04/2024 06/23/2024 FREDO - 7 SCORES Score 8 8 12 12 (0-4) minimal anxiety, (5-9) mild anxiety, (10-14) moderate anxiety, (15-21) severe anxiety Patient Health Questionnaire (PHQ-9) 01/21/2024 03/04/2024 06/23/2024 PHQ-9 Score 11 11 11 11 (0-4) minimal depression, (5-9) mild depression, (10-14) moderate depression, (15-19) moderately severe depression, (20-27) severe depression PAST MEDICAL HISTORY Diagnosis Date Depression Generalized anxiety disorder Infection, bartonella 07/2023 TMJ arthritis PAST SURGICAL HISTORY Procedure Laterality Date EXTENSIVE JAW SURGERY ALLERGIES Allergen Reactions Sulfamethoxazole-Tr* Rash Azithromycin Rash, Hives, GI Upset Buspirone Mental Status Change Ceftriaxone Other: See Comments Erythromycin Base Rash Morphine GI Upset Current Outpatient Medications on File Prior to Visit Medication Sig escitalopram oxalate (LEXAPRO) 20 mg tablet Take 1.5 tablets by mouth once daily. progesterone micronized (PROMETRIUM) 100 mg capsule Take 3 capsules by mouth once daily. Used for mood. Progesterone - Compound vitamin B complex with C-FA-CU-ZN renal vitamins (DIATX ZN) 5-1.5-25 mg tab Take 1 tablet by mouth once daily. (Patient not taking: Reported on 05/07/2024) SACCHAROMYCES BOULARDII ORAL INOSITOL ORAL cholecalciferol, vitamin D3, (VITAMIN D3 ORAL) MAGNESIUM GLYCINATE, BULK, MISC cyclobenzaprine (FLEXERIL) 10 mg tablet Take 10 mg by mouth daily at bedtime. No current facility-administered medications on file prior to visit. ROS: See HPI PFSH: See HPI VITAL SIGNS: There were no vitals filed for this visit. Last 3 Encounter BP Readings: Date: BP: 06/13/2024 114/76 05/07/2024 110/60 03/28/2024 110/74 MENTAL STATUS EXAMINATION: Appearance: Casually dressed, well groomed Behavior: Behaves appropriately during the encounter Social relatedness: anxious Speech/Language: The patient demonstrates appropriate tone, prosody, jerry, phonetics, and syntax Mood: sad and anxious Affect: Full and appropriate to topic Orientation: Person, Place, Time and Situation Associations: Intact and linear Hallucinations: None Delusions: None Suicidal Ideation: No suicidal ideation, intent or plan. Homicidal Ideation: No homicidal ideation, intent or plan. Insight: Appropriate Judgment: Appropriate DATA REVIEWED: Psychiatric scales, Electronic medical record, Labs, and The PDMP report was reviewed and found to be appropriate without any signs of misuse or diversion. DIAGNOSIS: Other obsessive-compulsive disorders (primary encounter diagnosis) Fredo (generalized anxiety disorder) Psychosocial stressors Encounter for long-term (current) use of medications Major depressive disorder, recurrent episode, moderate (hcc) GAF: -60-51 Moderate symptoms or moderate difficulty in social, occupational or school functioning. TREATMENT PLAN: Continue Lexapro 30 mg at the same dose to address mood and anxiety symptoms. Utilize Hydroxyzine and Ativan as needed to manage anxiety symptoms. Continue engagement in individual and couple's psychotherapy. Follow up in 3 months or sooner if needed. MEDICATION CHANGES: Current medication regimen unchanged. Prescriptions given Risks and benefits of the medication, including any black box warnings, were discussed with the patient. Patient is aware to reach out with any questions, concerns, or worsening of symptoms prior to the next appointment. Patient educated on risks of substance use in combination with medications and advised that any substance use along with medications may alter their effectiveness. Follow Up: See Treatment Plan Medical Decision Making: Problems: Moderate: 2+ stable chronic illnesses Data: Unique source(s) for external note(s) reviewed: 3+ Unique test result(s) reviewed: 3+ Independent interpretation of test from other physician/QHCP Risk: Moderate: Moderate risk from testing/treatment and Drug management Medical Decision Making Level: 4 - Moderate ADD ON PSYCHOTHERAPY CODE : No SIGNATURE: Laurie Serra APRN.CNP PATIENT NAME: Smita Nguyen DATE: June 23, 2024 TIME: 3:03 PM documented in this encounter [facility] 06-13-2024 Note HNO ID: [id number] Author: TOÑA BLANKENSHIP MD Service: ? Author Type: Physician Type: Progress Notes Filed: 06/13/2024 16:33 Note Text: Smita Nguyen is a 29 year old female who presents for problem visit for preconceptual counseling and irreg menses HPI: 29 YOF has tried to conceive for past year. Has been using LH strips to detect ovulation. Has been using home fertility monitor now. Has been on progesterone for mood stabilization. has semen analysis that was normal. Menses 3 days and that is less than before used to be 4-5 years ago. Not a lot of cramping. No pain w/ intercourse. INtercourse regularly around ovulation. Cycles 27-37 days, most within 28-32 day. Has been sexually activity without contraception in the past and hasn't conceived. Partner hasn't fathered a . She has never had chemo or radiation, no surgery on abdomen. No h/o peritoneal infection. Has been on progesterone for years. OB History Gravida0 Para0 Term0 Preterm0 AB0 Living0 SAB0 IAB0 Ectopic0 Multiple0 Live Births0 Can Solderer History LMP: 05/18/2024 (Exact Date), Having periods Age at Menarche: Age at First : Age at Menopause: Can Solderer History Comments: Sexual Activity: Yes; Male Contraception: Condom No past medical history on file. No past surgical history on file. FAMILY HISTORY Problem Relation Age of Onset No Known Problems Mother No Known Problems Father Social History Tobacco Use Smoking status: Never Smokeless tobacco: Never Vaping Use Vaping status: Never Used Substance Use Topics Alcohol use: Yes Comment: rarely Drug use: Never Current Outpatient Medications Medication Sig escitalopram oxalate (LEXAPRO) 20 mg tablet Take 1.5 tablets by mouth once daily. progesterone micronized (PROMETRIUM) 100 mg capsule Take 3 capsules by mouth once daily. Used for mood. Progesterone - Compound vitamin B complex with C-FA-CU-ZN renal vitamins (DIATX ZN) 5-1.5-25 mg tab Take 1 tablet by mouth once daily. (Patient not taking: Reported on 05/07/2024) SACCHAROMYCES BOULARDII ORAL INOSITOL ORAL cholecalciferol, vitamin D3, (VITAMIN D3 ORAL) MAGNESIUM GLYCINATE, BULK, MISC cyclobenzaprine (FLEXERIL) 10 mg tablet Take 10 mg by mouth daily at bedtime. No current facility-administered medications for this visit. Allergies As of Date: 06/13/2024 Allergen Noted Reaction SULFAMETHOXAZOLE-TRIMETHOPRIM 09/26/2016 Rash AZITHROMYCIN 10/30/2023 Rash, Hives, and GI Upset BUSPIRONE 01/29/2023 Mental Status Change CEFTRIAXONE 01/08/2015 Other: See Comments ERYTHROMYCIN BASE 05/17/2015 Rash MORPHINE 05/02/2022 GI Upset Fully Assessed 06/13/2024 Allergies and current medication updated:Yes SENSITIVE EXAM: The sensitive examination was discussed with the Patient or Patient's Authorized Seasonal Greenery Bundler. As applicable, any other physician, advance practice provider, medical student, or other health professional student that will be observing or involved in the sensitive examination for educational or training purposes was discussed with the Patient or Authorized Seasonal Greenery Bundler. The Patient or Authorized Seasonal Greenery Bundler has agreed to proceed with the sensitive examination. (Sensitive examination includes inspection and/or palpation of the breasts, pelvis, prostate and anorectal regions). EXAM: BP 114/76 Wt 166 lb (75.3kg) LMP 05/18/2024 GENERAL: pleasant, female in no apparent distress ASSESSMENT AND PLAN: Assessment AND Plan Encounter for preconception consultation Irregular menstrual cycle I discussed with the patient that based on her cycles and fertility tracking it seems like she is ovulatory. Agree with continuing vitamins. Agree with other supplements. Strongly recommend she stop the daily progesterone as that may be affecting fertility. We reviewed risk benefits and alternatives to trial of ovulation induction with Femara or Clomid. Discussed with her would not likely significantly change her conception rates as it seems she is ovulating regularly. Discussed with her option of HSG. No other labs are strongly recommended at this time. Offered consult with reproductive endocrinology. Patient states she is not ready for this at this time. She is very concerned about how fertility medications and manipulating her hormones may affect her anxiety as it seems like it is affected her anxiety in the past. She would like to stop the if she has not conceived at that time she may consider proceeding with HSG. Pogesterone supplementation at the onset of her next menses and we will track her menses for the next 2 to 3 months and follow-up after that. She has a psychiatrist and a psychologist that she follows up with for her anxiety and she will continue to follow with them. Menses not exactly 28 days but seem ovulatory. D/w her timing of intercourse during cycles. reviewed last pelvic US, last pap, estrogen levels and FSH Medi (more content not included)... [facility] 06-13-2024 History of Presen t illness Narrative Smita Nguyen is a 29 year old female who presents for problem visit for preconceptual counseling and irreg menses HPI: 29 YOF has tried to conceive for past year. Has been using LH strips to detect ovulation. Has been using home fertility monitor now. Has been on progesterone for mood stabilization. has semen analysis that was normal. Menses 3 days and that is less than before used to be 4-5 years ago. Not a lot of cramping. No pain w/ intercourse. INtercourse regularly around ovulation. Cycles 27-37 days, most within 28-32 day. Has been sexually activity without contraception in the past and hasn't conceived. Partner hasn't fathered a . She has never had chemo or radiation, no surgery on abdomen. No h/o peritoneal infection. Has been on progesterone for years. OB History Gravida0 Para0 Term0 Preterm0 AB0 Living0 SAB0 IAB0 Ectopic0 Multiple0 Live Births0 Can Solderer History LMP: 05/18/2024 (Exact Date), Having periods Age at Menarche: Age at First : Age at Menopause: Can Solderer History Comments: Sexual Activity: Yes; Male Contraception: Condom No past medical history on file. No past surgical history on file. FAMILY HISTORY Problem Relation Age of Onset No Known Problems Mother No Known Problems Father Social History Tobacco Use Smoking status: Never Smokeless tobacco: Never Vaping Use Vaping status: Never Used Substance Use Topics Alcohol use: Yes Comment: rarely Drug use: Never Current Outpatient Medications Medication Sig escitalopram oxalate (LEXAPRO) 20 mg tablet Take 1.5 tablets by mouth once daily. progesterone micronized (PROMETRIUM) 100 mg capsule Take 3 capsules by mouth once daily. Used for mood. Progesterone - Compound vitamin B complex with C-FA-CU-ZN renal vitamins (DIATX ZN) 5-1.5-25 mg tab Take 1 tablet by mouth once daily. (Patient not taking: Reported on 05/07/2024) SACCHAROMYCES BOULARDII ORAL INOSITOL ORAL cholecalciferol, vitamin D3, (VITAMIN D3 ORAL) MAGNESIUM GLYCINATE, BULK, MISC cyclobenzaprine (FLEXERIL) 10 mg tablet Take 10 mg by mouth daily at bedtime. No current facility-administered medications for this visit. Allergies As of Date: 06/13/2024 Allergen Noted Reaction SULFAMETHOXAZOLE-TRIMETHOPRIM 09/26/2016 Rash AZITHROMYCIN 10/30/2023 Rash, Hives, and GI Upset BUSPIRONE 01/29/2023 Mental Status Change CEFTRIAXONE 01/08/2015 Other: See Comments ERYTHROMYCIN BASE 05/17/2015 Rash MORPHINE 05/02/2022 GI Upset Fully Assessed 06/13/2024 Allergies and current medication updated:Yes SENSITIVE EXAM: The sensitive examination was discussed with the Patient or Patient's Authorized Seasonal Greenery Bundler. As applicable, any other physician, advance practice provider, medical student, or other health professional student that will be observing or involved in the sensitive examination for educational or training purposes was discussed with the Patient or Authorized Seasonal Greenery Bundler. The Patient or Authorized Seasonal Greenery Bundler has agreed to proceed with the sensitive examination. (Sensitive examination includes inspection and/or palpation of the breasts, pelvis, prostate and anorectal regions). EXAM: BP 114/76 Wt 166 lb (75.3kg) LMP 05/18/2024 GENERAL: pleasant, female in no apparent distress ASSESSMENT AND PLAN: Assessment & Plan Encounter for preconception consultation Irregular menstrual cycle I discussed with the patient that based on her cycles and fertility tracking it seems like she is ovulatory. Agree with continuing vitamins. Agree with other supplements. Strongly recommend she stop the daily progesterone as that may be affecting fertility. We reviewed risk benefits and alternatives to trial of ovulation induction with Femara or Clomid. Discussed with her would not likely significantly change her conception rates as it seems she is ovulating regularly. Discussed with her option of HSG. No other labs are strongly recommended at this time. Offered consult with reproductive endocrinology. Patient states she is not ready for this at this time. She is very concerned about how fertility medications and manipulating her hormones may affect her anxiety as it seems like it is affected her anxiety in the past. She would like to stop the if she has not conceived at that time she may consider proceeding with HSG. Pogesterone supplementation at the onset of her next menses and we will track her menses for the next 2 to 3 months and follow-up after that. She has a psychiatrist and a psychologist that she follows up with for her anxiety and she will continue to follow with them. Menses not exactly 28 days but seem ovulatory. D/w her timing of intercourse during cycles. reviewed last pelvic US, last pap, estrogen levels and FSH Medical Decision Making: Problems: Moderate: New problem with uncertain prognosis Data: Unique test result(s) reviewed: 3+ Risk: Low: Low risk from testing/treatment Medical Decision Making Level: 4 - Moderate Toña Blankenship MD documented in this encounter [facility] 05-29-2024 Telephone encounter Note Refill sent to the pharmacy. Patient is due to schedule a follow up appointment with the provider. [facility] 05-29-2024 Miscellaneous Notes Refill sent to the pharmacy. Patient is due to schedule a follow up appointment with the provider. Pt reports she only has 1-2 days left on this Rx. Last appt with Laurie: 03-06-24 Next appt: none documented in this encounter [facility] 05-29-2024 Telephone encounter Note Pt reports she only has 1-2 days left on this Rx. Last appt with Laurie: 03-06-24 Next appt: none [facility] 05-19-2024 Note HNO ID: [id number] Author: MARCIE SHIELDS MD Service: ? Author Type: Physician Type: Progress Notes Filed: 05/19/2024 12:36 Note Text: Smita Nguyen is a 29 year old female who presented for reversal print inspector ultrasound today. Encounter Diagnosis ICD-10-CM 1. Desire for Z31.9 2. Irregular menstrual cycle N92.6 Please see report under imaging tab. Marcie Shields MD May 19, 2024 12:34 PM [facility] 05-19-2024 History of Presen t illness Narrative Smita Nguyen is a 29 year old female who presented for reversal print inspector ultrasound today. Encounter Diagnosis ICD-10-CM 1. Desire for Z31.9 2. Irregular menstrual cycle N92.6 Please see report under imaging tab. Marcie Shields MD May 19, 2024 12:34 PM documented in this encounter [facility] 05-07-2024 Note HNO ID: [id number] Author: BRENNAN HEAD APRN.STONE BELT SANDER Service: ? Author Type: Nurse Practitioner Type: Progress Notes Filed: 05/07/2024 11:12 Note Text: Shuffle Board Operator offered: Patient declines. Smita Nguyen is a 29 year old female who presents for problem visit for burning with urination for 4 days. HPI: Smita presents for burning with urination for 4 days. Urine has a slight odor to it. She is experiencing vaginal discharge, but reports she just ovulated and thinks it may be related to that as it is not irritating or causing itching. She has also been attempting to conceive for about 1 year with timed intercourse. Wondering what next steps are as this is starting to become emotionally and mentally difficult for her. Cycles can last up to 37 days long. OB History T0 L0 SAB0 IAB0 Ectopic0 Multiple0 Live Births0 Can Solderer History LMP: 03/22/2024 (Exact Date), Having periods Age at Menarche: Age at First : Age at Menopause: Can Solderer History Comments: Sexual Activity: Yes; Male Contraception: Condom No past medical history on file. No past surgical history on file. FAMILY HISTORY Problem Relation Age of Onset No Known Problems Mother No Known Problems Father Social History Tobacco Use Smoking status: Never Smokeless tobacco: Never Vaping Use Vaping status: Never Used Substance Use Topics Alcohol use: Yes Comment: rarely Drug use: Never Current Outpatient Medications Medication Sig progesterone micronized (PROMETRIUM) 100 mg capsule Take 3 capsules by mouth once daily. Used for mood. Progesterone - Compound escitalopram oxalate (LEXAPRO) 20 mg tablet Take 1.5 tablets by mouth once daily. vitamin B complex with C-FA-CU-ZN renal vitamins (DIATX ZN) 5-1.5-25 mg tab Take 1 tablet by mouth once daily. SACCHAROMYCES BOULARDII ORAL INOSITOL ORAL cholecalciferol, vitamin D3, (VITAMIN D3 ORAL) MAGNESIUM GLYCINATE, BULK, MISC cyclobenzaprine (FLEXERIL) 10 mg tablet Take 10 mg by mouth daily at bedtime. No current facility-administered medications for this visit. Allergies As of Date: 05/07/2024 Allergen Noted Reaction AZITHROMYCIN 10/30/2023 Rash, Hives, and GI Upset BUSPIRONE 01/29/2023 Mental Status Change MORPHINE 05/02/2022 GI Upset Fully Assessed 03/28/2024 REVIEW OF SYSTEMS Bladder: No gross hematuria, urinary frequency, urinary urgency, or incontinence. + dysuria, odor Expanded ROS: PATIENT FINANCIAL SERVICES SPECIALIST: Negative for abnormal vaginal bleeding, abnormal vaginal discharge Allergies and current medication updated:Yes SENSITIVE EXAM: Sensitive exam declined. Discussed rationale and impact on treatment. EXAM: BP 110/60 Wt 168 lb (76.2kg) LMP 04/19/2024 GENERAL: pleasant, female in no apparent distress HEENT: Normocephalic, atraumatic, mucus membranes moist, and no lesions CHEST: Normal inspiratory effort NEURO: alert and oriented x3,exam grossly non-focal EXTREMITIES: normal ASSESSMENT AND PLAN: 1. Dysuria - ICD9: 788.1, ICD10: R30.0 (primary diagnosis) - Push fluids -Avoid bladder irritants - spicy, citrus, tomatoes, smoking, coffee, tea, pop, carbonation, artificial sweeteners and alcohol. - UA DIP, URINE (POC) - BACTERIAL CULTURE, URINE - NITROFURANTOIN MONOHYDRATE AND MACROCRYSTAL 100 MG ORAL CAP 2. Vaginal discharge - ICD9: 623.5, ICD10: N89.8 - Declines testing for this 3. Desire for - ICD9: V26.9, ICD10: Z31.9 4. Irregular menstrual cycle - ICD9: 626.4, ICD10: N92.6 - PELVIC US [facility]I - To follow up to discuss preconception/fertility Brennan Head APRN.DAVY Medical Decision Making: Problems: Low: Acute, uncomplicated illness or injury and Stable chronic illness Data: Unique test(s) ordered: 2 Risk: Low: Low risk from testing/treatment Moderate: Drug management Medical Decision Making Level: 3 - Low [facility] 05-07-2024 History of Presen t illness Narrative Shuffle Board Operator offered: Patient declines. Smita Nguyen is a 29 year old female who presents for problem visit for burning with urination for 4 days. HPI: Smita presents for burning with urination for 4 days. Urine has a slight odor to it. She is experiencing vaginal discharge, but reports she just ovulated and thinks it may be related to that as it is not irritating or causing itching. She has also been attempting to conceive for about 1 year with timed intercourse. Wondering what next steps are as this is starting to become emotionally and mentally difficult for her. Cycles can last up to 37 days long. OB History T0 L0 SAB0 IAB0 Ectopic0 Multiple0 Live Births0 Can Solderer History LMP: 03/22/2024 (Exact Date), Having periods Age at Menarche: Age at First : Age at Menopause: Can Solderer History Comments: Sexual Activity: Yes; Male Contraception: Condom No past medical history on file. No past surgical history on file. FAMILY HISTORY Problem Relation Age of Onset No Known Problems Mother No Known Problems Father Social History Tobacco Use Smoking status: Never Smokeless tobacco: Never Vaping Use Vaping status: Never Used Substance Use Topics Alcohol use: Yes Comment: rarely Drug use: Never Current Outpatient Medications Medication Sig progesterone micronized (PROMETRIUM) 100 mg capsule Take 3 capsules by mouth once daily. Used for mood. Progesterone - Compound escitalopram oxalate (LEXAPRO) 20 mg tablet Take 1.5 tablets by mouth once daily. vitamin B complex with C-FA-CU-ZN renal vitamins (DIATX ZN) 5-1.5-25 mg tab Take 1 tablet by mouth once daily. SACCHAROMYCES BOULARDII ORAL INOSITOL ORAL cholecalciferol, vitamin D3, (VITAMIN D3 ORAL) MAGNESIUM GLYCINATE, BULK, MISC cyclobenzaprine (FLEXERIL) 10 mg tablet Take 10 mg by mouth daily at bedtime. No current facility-administered medications for this visit. Allergies As of Date: 05/07/2024 Allergen Noted Reaction AZITHROMYCIN 10/30/2023 Rash, Hives, and GI Upset BUSPIRONE 01/29/2023 Mental Status Change MORPHINE 05/02/2022 GI Upset Fully Assessed 03/28/2024 REVIEW OF SYSTEMS Bladder: No gross hematuria, urinary frequency, urinary urgency, or incontinence. + dysuria, odor Expanded ROS: PATIENT FINANCIAL SERVICES SPECIALIST: Negative for abnormal vaginal bleeding, abnormal vaginal discharge Allergies and current medication updated:Yes SENSITIVE EXAM: Sensitive exam declined. Discussed rationale and impact on treatment. EXAM: BP 110/60 Wt 168 lb (76.2kg) LMP 04/19/2024 GENERAL: pleasant, female in no apparent distress HEENT: Normocephalic, atraumatic, mucus membranes moist, and no lesions CHEST: Normal inspiratory effort NEURO: alert and oriented x3,exam grossly non-focal EXTREMITIES: normal ASSESSMENT AND PLAN: 1. Dysuria - ICD9: 788.1, ICD10: R30.0 (primary diagnosis) - Push fluids -Avoid bladder irritants - spicy, citrus, tomatoes, smoking, coffee, tea, pop, carbonation, artificial sweeteners and alcohol. - UA DIP, URINE (POC) - BACTERIAL CULTURE, URINE - NITROFURANTOIN MONOHYDRATE & MACROCRYSTAL 100 MG ORAL CAP 2. Vaginal discharge - ICD9: 623.5, ICD10: N89.8 - Declines testing for this 3. Desire for - ICD9: V26.9, ICD10: Z31.9 4. Irregular menstrual cycle - ICD9: 626.4, ICD10: N92.6 - PELVIC US WHI - To follow up to discuss preconception/fertility Brennan Head APRN.CNP Medical Decision Making: Problems: Low: Acute, uncomplicated illness or injury and Stable chronic illness Data: Unique test(s) ordered: 2 Risk: Low: Low risk from testing/treatment Moderate: Drug management Medical Decision Making Level: 3 - Low documented in this encounter [facility] 03-28-2024 Note HNO ID: [id number] Author: CAMELIA HERRERA APRN.CNM Service: ? Author Type: Paperhanger Apprentice Type: Progress Notes Filed: 03/28/2024 15:16 Note Text: Smita Nguyen is a 28 year old female who presents for problem visit HPI: Presents today with complaint of vaginal discharge, odor, and concerns she has another BV infection. Denies any other complaint. OB History T0 L0 SAB0 IAB0 Ectopic0 Multiple0 Live Births0 Can Solderer History LMP: 03/22/2024 (Exact Date), Having periods Age at Menarche: Age at First : Age at Menopause: Can Solderer History Comments: Sexual Activity: Yes; Male Contraception: Condom No past medical history on file. No past surgical history on file. FAMILY HISTORY Problem Relation Age of Onset No Known Problems Mother No Known Problems Father Social History Tobacco Use Smoking status: Never Smokeless tobacco: Never Vaping Use Vaping status: Never Used Substance Use Topics Alcohol use: Yes Comment: rarely Drug use: Never Current Outpatient Medications Medication Sig progesterone micronized (PROMETRIUM) 100 mg capsule Take 3 capsules by mouth once daily. Used for mood. Progesterone - Compound escitalopram oxalate (LEXAPRO) 20 mg tablet Take 1.5 tablets by mouth once daily. vitamin B complex with C-FA-CU-ZN renal vitamins (DIATX ZN) 5-1.5-25 mg tab Take 1 tablet by mouth once daily. SACCHAROMYCES BOULARDII ORAL INOSITOL ORAL cholecalciferol, vitamin D3, (VITAMIN D3 ORAL) MAGNESIUM GLYCINATE, BULK, MISC cyclobenzaprine (FLEXERIL) 10 mg tablet Take 10 mg by mouth daily at bedtime. No current facility-administered medications for this visit. Allergies As of Date: 03/28/2024 Allergen Noted Reaction AZITHROMYCIN 10/30/2023 Rash, Hives, and GI Upset BUSPIRONE 01/29/2023 Mental Status Change MORPHINE 05/02/2022 GI Upset Fully Assessed 03/28/2024 REVIEW OF SYSTEMS Abdomen: No bloating, early satiety, indigestion, or increased flatulence. No abdominal pain, nausea, vomiting, diarrhea, or constipation. Bladder: No dysuria, gross hematuria, urinary frequency, urinary urgency, or incontinence. Breast: No breast lumps, nipple d/c, overlying skin changes, redness or skin retraction. Expanded ROS: N/A Allergies and current medication updated:Yes SENSITIVE EXAM: The sensitive examination was discussed with the Patient or Patient's Authorized Seasonal Greenery Bundler. As applicable, any other physician, advance practice provider, medical student, or other health professional student that will be observing or involved in the sensitive examination for educational or training purposes was discussed with the Patient or Authorized Seasonal Greenery Bundler. The Patient or Authorized Seasonal Greenery Bundler has agreed to proceed with the sensitive examination. (Sensitive examination includes inspection and/or palpation of the breasts, pelvis, prostate and anorectal regions). EXAM: BP 110/74 Wt 172 lb (78.0kg) LMP 03/22/2024 GENERAL: pleasant, female in no apparent distress HEENT: Normocephalic and atraumatic NECK: Supple and full range of motion PELVIC: external genitalia normal, normal Bartholin's glands, urethra, Ireton's glands, no vulvar lesions, no cervical lesions, good vaginal support, physiologic discharge present, normal appearing perineal body and perianal region BIMANUAL: uterus normal size, shape and consistency, no adnexal masses, and non-tender NEURO: alert and oriented x3,exam grossly non-focal EXTREMITIES: normal ASSESSMENT AND PLAN: Assessment AND Plan Vaginal discharge Orders: MYRA/TRICHOMONAS NAAT BACTERIAL VAGINOSIS NAAT Vaginal odor Orders: MYRA/TRICHOMONAS NAAT BACTERIAL VAGINOSIS NAAT [facility] History of Presen t illness Narrative Smita Nguyen is a 28 year old female who presents for problem visit HPI: Presents today with complaint of vaginal discharge, odor, and concerns she has another BV infection. Denies any other complaint. OB History T0 L0 SAB0 IAB0 Ectopic0 Multiple0 Live Births0 Can Solderer History LMP: 03/22/2024 (Exact Date), Having periods Age at Menarche: Age at First : Age at Menopause: Can Solderer History Comments: Sexual Activity: Yes; Male Contraception: Condom No past medical history on file. No past surgical history on file. FAMILY HISTORY Problem Relation Age of Onset No Known Problems Mother No Known Problems Father Social History Tobacco Use Smoking status: Never Smokeless tobacco: Never Vaping Use Vaping status: Never Used Substance Use Topics Alcohol use: Yes Comment: rarely Drug use: Never Current Outpatient Medications Medication Sig progesterone micronized (PROMETRIUM) 100 mg capsule Take 3 capsules by mouth once daily. Used for mood. Progesterone - Compound escitalopram oxalate (LEXAPRO) 20 mg tablet Take 1.5 tablets by mouth once daily. vitamin B complex with C-FA-CU-ZN renal vitamins (DIATX ZN) 5-1.5-25 mg tab Take 1 tablet by mouth once daily. SACCHAROMYCES BOULARDII ORAL INOSITOL ORAL cholecalciferol, vitamin D3, (VITAMIN D3 ORAL) MAGNESIUM GLYCINATE, BULK, MISC cyclobenzaprine (FLEXERIL) 10 mg tablet Take 10 mg by mouth daily at bedtime. No current facility-administered medications for this visit. Allergies As of Date: 03/28/2024 Allergen Noted Reaction AZITHROMYCIN 10/30/2023 Rash, Hives, and GI Upset BUSPIRONE 01/29/2023 Mental Status Change MORPHINE 05/02/2022 GI Upset Fully Assessed 03/28/2024 REVIEW OF SYSTEMS Abdomen: No bloating, early satiety, indigestion, or increased flatulence. No abdominal pain, nausea, vomiting, diarrhea, or constipation. Bladder: No dysuria, gross hematuria, urinary frequency, urinary urgency, or incontinence. Breast: No breast lumps, nipple d/c, overlying skin changes, redness or skin retraction. Expanded ROS: N/A Allergies and current medication updated:Yes SENSITIVE EXAM: The sensitive examination was discussed with the Patient or Patient's Authorized Seasonal Greenery Bundler. As applicable, any other physician, advance practice provider, medical student, or other health professional student that will be observing or involved in the sensitive examination for educational or training purposes was discussed with the Patient or Authorized Seasonal Greenery Bundler. The Patient or Authorized Seasonal Greenery Bundler has agreed to proceed with the sensitive examination. (Sensitive examination includes inspection and/or palpation of the breasts, pelvis, prostate and anorectal regions). EXAM: BP 110/74 Wt 172 lb (78.0kg) LMP 03/22/2024 GENERAL: pleasant, female in no apparent distress HEENT: Normocephalic and atraumatic NECK: Supple and full range of motion PELVIC: external genitalia normal, normal Bartholin's glands, urethra, Ireton's glands, no vulvar lesions, no cervical lesions, good vaginal support, physiologic discharge present, normal appearing perineal body and perianal region BIMANUAL: uterus normal size, shape and consistency, no adnexal masses, and non-tender NEURO: alert and oriented x3,exam grossly non-focal EXTREMITIES: normal ASSESSMENT AND PLAN: Assessment & Plan Vaginal discharge Orders: MYRA/TRICHOMONAS NAAT BACTERIAL VAGINOSIS NAAT Vaginal odor Orders: MYRA/TRICHOMONAS NAAT BACTERIAL VAGINOSIS NAAT Camelia Herrera APRN.NO documented in this encounter [facility] 03-11-2024 Telephone encounter Note Last OV 02/04/24. Requested Prescriptions Pending Prescriptions Disp Refills progesterone micronized (PROMETRIUM) 100 mg capsule 90 capsule 11 Sig: Take 3 capsules by mouth once daily. Used for mood. Progesterone - Compound Pamela Cooper RN [facility] 03-11-2024 Miscellaneous Notes Last OV 02/04/24. Requested Prescriptions Pending Prescriptions Disp Refills progesterone micronized (PROMETRIUM) 100 mg capsule 90 capsule 11 Sig: Take 3 capsules by mouth once daily. Used for mood. Progesterone - Compound Pamela Cooper RN documented in this encounter [facility] 03-06-2024 Instructions Laurie Serra APRN.[employer] - 03/06/2024 8:55 AM EST TREATMENT PLAN: Continue Lexapro at the 30 mg dose with the plan to trial a decrease at the next appointment due reduce the metabolic and sexual side effect burden. Continue to Utilize Hydroxyzine and Ativan as needed to manage anxiety and sleep concerns. Did not request a refill at this time. Continue on the supplements recommended by OB and inositol to manage OCD symptoms. Continue individual and couple's therapy. Follow up in 2 months or sooner if needed. For those experiencing a suicidal crisis: --call the National Suicide Prevention Lifeline at 680 (202-936-9429) --text the Crisis Text Line (text HOME to 625527) --call 811 and let them know you are having a mental health crisis or go to your nearest Emergency Room for stabilization. --You can also call Mobile Crisis at [phone]. -- You may call the department appointment line at [phone] to schedule your appointment. -- Please call my nurse at [phone] or send me a message in [place] with any questions or concerns between appointments. documented in this encounter [facility] 03-06-2024 History of Presen t illness Narrative Images from the original note were not included. FOLLOW UP - PSYCHIATRIC PROGRESS NOTE PATIENT: Smita Nguyen DATE: March 06, 2024 Visit Type: Virtual Visit utilizing two-way audio and video for at least a portion of the visit. Consent for virtual visit obtained verbally. Confidentiality limitations with virtual visits reviewed with the patient and guardian, if present, who have accepted the risk verbally prior to proceeding with encounter. I have communicated my name and active licensure. The patient's identity and physical location were verified at the time of this visit. Either the patient or their legal junior sales representative has been informed of the risks and benefits of -- and alternatives to -- treatment through a remote evaluation and consents to proceed with the evaluation remotely. All information is from Patient report except when noted. This evaluation is NOT intended for forensic, disability or child custody purposes. CC: Presenting today for follow up regarding psychiatric medication management. HPI: Treatment Plan from Last Visit on 01/25/2024: TREATMENT PLAN: Decrease Lexapro to 30 mg as anxiety overall has improved. Goal of decrease in medication is to address the sexual side effects as well as the metabolic side effects. Utilize Hydroxyzine as needed to manage anxiety symptoms. Utilize Ativan as needed to address severe anxiety symptoms related to intrusive thoughts. Continue engagement in individual psychotherapy. Will order monitoring lab work at the next appointment. Today Smita shares that I have been good. There are still emotional days due to her struggling with conceiving. She started the supplements recommended by her OB. Is taking the inositol for anxiety and fertility a total of 6 grams for the past month. Has tolerated the decrease in Lexapro to 30 mg but shares that she is not ready to decrease it more. Would like to get additional support from the supplements before trying. Has not needed to use the hydroxyzine and Ativan at all either since the decrease in Lexapro. Denies any changes in her physical health. Would like to go to gym more consistently. She is going to start a nutrition challenge on April 07 with other members of her gym. Has already started to incorporate more protein in her diet. Avoiding gluten in her diet. Takes a probiotic. Engaged in individual therapy 2 times a month. Will be reducing the frequency to every 3 weeks moving forward. Recently started couples therapy due to communication concerns regarding conceiving struggles. Wants to understand why it is triggering for her to be around friends who have children. Discussed ways of coping with this as well. She is sleeping well. Sleeping through the night. Work has been very stressful. She is trying to manage it by staying organized. Did have a meeting with her supervisor electron [employer] processing to discuss some of her concerns. Has felt heard and thinks that things will improve. Interval Progress: Slightly improved PATIENT DATA: Generalized Anxiety Disorder Scale (FREDO-7) 10/17/2023 01/21/2024 03/04/2024 FREDO - 7 SCORES Score 13 8 8 (0-4) minimal anxiety, (5-9) mild anxiety, (10-14) moderate anxiety, (15-21) severe anxiety Patient Health Questionnaire (PHQ-9) 10/17/2023 01/21/2024 03/04/2024 PHQ-9 Score 11 11 11 (0-4) minimal depression, (5-9) mild depression, (10-14) moderate depression, (15-19) moderately severe depression, (20-27) severe depression No past medical history on file. No past surgical history on file. ALLERGIES Allergen Reactions Azithromycin Rash, Hives, GI Upset Buspirone Mental Status Change Morphine GI Upset Current Outpatient Medications on File Prior to Visit Medication Sig escitalopram oxalate (LEXAPRO) 20 mg tablet Take 1.5 tablets by mouth once daily. vitamin B complex with C-FA-CU-ZN renal vitamins (DIATX ZN) 5-1.5-25 mg tab Take 1 tablet by mouth once daily. SACCHAROMYCES BOULARDII ORAL INOSITOL ORAL cholecalciferol, vitamin D3, (VITAMIN D3 ORAL) MAGNESIUM GLYCINATE, BULK, MISC progesterone micronized (PROMETRIUM) 100 mg capsule Take 3 capsules by mouth once daily. Used for mood. Progesterone - Compound cyclobenzaprine (FLEXERIL) 10 mg tablet Take 10 mg by mouth daily at bedtime. No current facility-administered medications on file prior to visit. ROS: See HPI PFSH: See HPI VITAL SIGNS: There were no vitals filed for this visit. Last 3 Encounter BP Readings: Date: BP: 02/04/2024 114/68 10/30/2023 102/64 06/20/2023 110/68 MENTAL STATUS EXAMINATION: Appearance: Casually dressed, well groomed Behavior: Behaves appropriately during the encounter Social relatedness: Euthymic Speech/Language: The patient demonstrates appropriate tone, prosody, jerry, phonetics, and syntax Mood: euthymic Affect: Full and appropriate to topic Orientation: Person, Place, Time and Situation Associations: Intact and linear Hallucinations: None Delusions: None Suicidal Ideation: No suicidal ideation, intent or plan. Homicidal Ideation: No homicidal ideation, intent or plan. Insight: Appropriate Judgment: Appropriate DATA REVIEWED: Psychiatric scales, Electronic medical record, Labs, and The PDMP report was reviewed and found to be appropriate without any signs of misuse or diversion. DIAGNOSIS: Other obsessive-compulsive disorders (primary encounter diagnosis) Fredo (generalized anxiety disorder) Psychosocial stressors Metabolic syndrome Major depressive disorder, recurrent episode, moderate (hcc) Encounter for long-term (current) use of medications Decreased libido without sexual dysfunction GAF: -70-61 Some mild symptoms or some difficulty in social, occupational, or school functioning, but generally functioning pretty well. TREATMENT PLAN: Continue Lexapro at the 30 mg dose with the plan to trial a decrease at the next appointment due reduce the metabolic and sexual side effect burden. Continue to Utilize Hydroxyzine and Ativan as needed to manage anxiety and sleep concerns. Did not request a refill at this time. Continue on the supplements recommended by OB and inositol to manage OCD symptoms. Continue individual and couple's therapy. Follow up in 2 months or sooner if needed. MEDICATION CHANGES: Current medication regimen unchanged. Prescriptions given Risks and benefits of the medication, including any black box warnings, were discussed with the patient. Patient is aware to reach out with any questions, concerns, or worsening of symptoms prior to the next appointment. Patient educated on risks of substance use in combination with medications and advised that any substance use along with medications may alter their effectiveness. Follow Up: See Treatment Plan Medical Decision Making: Problems: Moderate: 2+ stable chronic illnesses Data: Unique source(s) for external note(s) reviewed: 3+ Unique test result(s) reviewed: 3+ Independent interpretation of test from other physician/QHCP Risk: Moderate: Moderate risk from testing/treatment and Drug management Medical Decision Making Level: 4 - Moderate SIGNATURE: Laurie Serra APRN.CNP PATIENT NAME: Smita Nguyen DATE: March 06, 2024 TIME: 8:35 AM documented in this encounter [facility] 03-06-2024 Note HNO ID: [id number] Author: LAURIE SERRA APRN.CNP Service: ? Author Type: Nurse Practitioner Type: Progress Notes Filed: 03/06/2024 08:55 Note Text: FOLLOW UP - PSYCHIATRIC PROGRESS NOTE PATIENT: Smita Nguyen DATE: March 06, 2024 Visit Type: Virtual Visit utilizing two-way audio and video for at least a portion of the visit. Consent for virtual visit obtained verbally. Confidentiality limitations with virtual visits reviewed with the patient and guardian, if present, who have accepted the risk verbally prior to proceeding with encounter. I have communicated my name and active licensure. The patient's identity and physical location were verified at the time of this visit. Either the patient or their legal junior sales representative has been informed of the risks and benefits of -- and alternatives to -- treatment through a remote evaluation and consents to proceed with the evaluation remotely. All information is from Patient report except when noted. This evaluation is NOT intended for forensic, disability or child custody purposes. CC: Presenting today for follow up regarding psychiatric medication management. HPI: Treatment Plan from Last Visit on 01/25/2024: TREATMENT PLAN: Decrease Lexapro to 30 mg as anxiety overall has improved. Goal of decrease in medication is to address the sexual side effects as well as the metabolic side effects. Utilize Hydroxyzine as needed to manage anxiety symptoms. Utilize Ativan as needed to address severe anxiety symptoms related to intrusive thoughts. Continue engagement in individual psychotherapy. Will order monitoring lab work at the next appointment. Today Smita shares that I have been good. There are still emotional days due to her struggling with conceiving. She started the supplements recommended by her OB. Is taking the inositol for anxiety and fertility a total of 6 grams for the past month. Has tolerated the decrease in Lexapro to 30 mg but shares that she is not ready to decrease it more. Would like to get additional support from the supplements before trying. Has not needed to use the hydroxyzine and Ativan at all either since the decrease in Lexapro. Denies any changes in her physical health. Would like to go to gym more consistently. She is going to start a nutrition challenge on April 07 with other members of her gym. Has already started to incorporate more protein in her diet. Avoiding gluten in her diet. Takes a probiotic. Engaged in individual therapy 2 times a month. Will be reducing the frequency to every 3 weeks moving forward. Recently started couples therapy due to communication concerns regarding conceiving struggles. Wants to understand why it is triggering for her to be around friends who have children. Discussed ways of coping with this as well. She is sleeping well. Sleeping through the night. Work has been very stressful. She is trying to manage it by staying organized. Did have a meeting with her supervisor [employer] to discuss some of her concerns. Has felt heard and thinks that things will improve. Interval Progress: Slightly improved PATIENT DATA: Generalized Anxiety Disorder Scale (FREDO-7) 10/17/2023 01/21/2024 03/04/2024 FREDO - 7 SCORES Score 13 8 8 (0-4) minimal anxiety, (5-9) mild anxiety, (10-14) moderate anxiety, (15-21) severe anxiety Patient Health Questionnaire (PHQ-9) 10/17/2023 01/21/2024 03/04/2024 PHQ-9 Score 11 11 11 (0-4) minimal depression, (5-9) mild depression, (10-14) moderate depression, (15-19) moderately severe depression, (20-27) severe depression No past medical history on file. No past surgical history on file. ALLERGIES Allergen Reactions Azithromycin Rash, Hives, GI Upset Buspirone Mental Status Change Morphine GI Upset Current Outpatient Medications on File Prior to Visit Medication Sig escitalopram oxalate (LEXAPRO) 20 mg tablet Take 1.5 tablets by mouth once daily. vitamin B complex with C-FA-CU-ZN renal vitamins (DIATX ZN) 5-1.5-25 mg tab Take 1 tablet by mouth once daily. SACCHAROMYCES BOULARDII ORAL INOSITOL ORAL cholecalciferol, vitamin D3, (VITAMIN D3 ORAL) MAGNESIUM GLYCINATE, BULK, MISC progesterone micronized (PROMETRIUM) 100 mg capsule Take 3 capsules by mouth once daily. Used for mood. Progesterone - Compound cyclobenzaprine (FLEXERIL) 10 mg tablet Take 10 mg by mouth daily at bedtime. No current facility-administered medications on file prior to visit. ROS: See HPI PFSH: See HPI VITAL SIGNS: There were no vitals filed for this visit. Last 3 Encounter BP Readings: Date: BP: 02/04/2024 114/68 10/30/2023 102/64 06/20/2023 110/68 MENTAL STATUS EXAMINATION: Appearance: Casually dressed, well groomed Behavior: Behaves appropriately during the encounter Social relatedness: Euthymic Speech/Language: The patient demonstrates appropriate tone, prosody, jerry, phonetics, and sy (more content not included)... [facility] 02-04-2024 Note HNO ID: [id number] Author: CAMELIA HERRERA APRN.CNM Service: ? Author Type: Paperhanger Apprentice Type: Progress Notes Filed: 02/11/2024 08:48 Note Text: Shuffle Board Operator offered: Patient declines. Smita is a 28 year old who presents for an annual gynecologic exam. Attempting for the last 7 months. Did not attempt in December due to stress and needed a break. Stopped using OPK kits but did show LH surge when she was using them, notices mucous change during ovulation. [place] every other day when she is trying to conceive. [place] had semen analysis and normal. Menses: cycles every 30 days and 3 days of flow. Contraception: none, attempting for the last 7 months. HPV vaccine: No Last Pap: 06/16/2020 normal HPV: N/A History of abnormal pap: No Last mammogram: never Sexually active: Yes Pain with intercourse: No Postcoital bleeding: No Exercise: 4-6 times a week doing [employer] OB History T0 L0 SAB0 IAB0 Ectopic0 Multiple0 Live Births0 Can [place] History LMP: 01/15/2024 (Exact Date), Having periods Age at Menarche: Age at First : Age at Menopause: Can Solderer History Comments: Sexual Activity: Yes; Male Contraception: Condom History reviewed. No pertinent past medical history.History reviewed. No pertinent surgical history. FAMILY HISTORY Problem Relation Age of Onset No Known Problems Mother No Known Problems Father SOCIAL HISTORY Social History Tobacco Use Smoking status: Never Smokeless tobacco: Never Vaping Use Vaping status: Never Used Substance Use Topics Alcohol use: Yes Comment: rarely Drug use: Never REVIEW OF SYSTEMS Abdomen: No abdominal pain, nausea, vomiting, diarrhea, or constipation. No bloating, early satiety, indigestion, or increased flatulence. Bladder: No dysuria, gross hematuria, urinary frequency, urinary urgency, or incontinence. Breast: No breast lumps, nipple d/c, overlying skin changes, redness or skin retraction. Allergies and current medication updated:Yes SENSITIVE EXAM: The sensitive examination was discussed with the Patient or Patient's Authorized Seasonal Greenery Bundler. As applicable, any other physician, advance practice provider, medical student, or other health professional student that will be observing or involved in the sensitive examination for educational or training purposes was discussed with the Patient or Authorized Seasonal Greenery Bundler. The Patient or Authorized Seasonal Greenery Bundler has agreed to proceed with the sensitive examination. (Sensitive examination includes inspection and/or palpation of the breasts, pelvis, prostate and anorectal regions). EXAM: BP 114/68 Ht 5' 6 (1.68m) Wt 171 lb (77.6kg) LMP 01/15/2024 BMI 27.61 kg/(m2). GENERAL: pleasant, female in no apparent distress HEENT: Normocephalic, atraumatic, mucus membranes moist, and no lesions NECK: Supple, full range of motion, no adenopathy, and thyroid normal DERMATOLOGY: Normal, without lesions, non-icteric, and non-hirsute BREAST: soft, non-tender, symmetric, no dominant mass, normal nipple-areolar complex, no lymphadenopathy, and no nipple discharge CHEST: Normal inspiratory effort ABDOMEN: soft, non-tender, and no masses PELVIC: external genitalia normal, normal Bartholin's glands, urethra, Ireton's glands, no vulvar lesions, no cervical lesions, good vaginal support, physiologic discharge present, normal appearing perineal body and perianal region BIMANUAL: uterus normal size, shape and consistency, no adnexal masses, and non-tender RECTOVAGINAL: deferred. NEURO: alert and oriented x3,exam grossly non-focal EXTREMITIES: normal ASSESSMENT/PLAN: 1. Encounter for gynecological examination (general) (routine) with abnormal findings - ICD9: V72.31, ICD10: Z01.411 (primary diagnosis) - Completed pelvic and breast exam - Encouraged monthly BSE - Follow up for annual exam in one year. - PAP TEST - BACTERIAL VAGINOSIS NAAT - MYRA/TRICHOMONAS NAAT - GONORRHEA/CHLAMYDIA NAAT - HIGH RISK HUMAN PAPILLOMA VIRUS (HPV), PCR FOR DETECTION AND GENOTYPING 2. Screening for cervical cancer - ICD9: V76.2, ICD10: Z12.4 - Completed pelvic and breast exam - Encouraged monthly BSE - Follow up for annual exam in one year. - PAP TEST - HIGH RISK HUMAN PAPILLOMA VIRUS (HPV), PCR FOR DETECTION AND GENOTYPING 3. Encounter for screening for human papillomavirus (HPV) - ICD9: V73.81, ICD10: Z11.51 - PAP TEST - HIGH RISK HUMAN PAPILLOMA VIRUS (HPV), PCR FOR DETECTION AND GENOTYPING 4. Encounter for preconception consultation - ICD9: V26.49, ICD10: Z31.69 -Reviewed at any point referral to physician or infertility. Appears to be ovulating. If no in 5 months recommend referral. Discussed importance of having intercourse around ovulation if she desires . 5. Anxiety with depression - ICD9: 300.4, ICD10: F41.8 -At this time coping and do not recommend stopping medication (more content not included)... [facility] 02-04-2024 History of Presen t illness Narrative Shuffle Board Operator offered: Patient declines. Smita is a 28 year old who presents for an annual gynecologic exam. Attempting for the last 7 months. Did not attempt in December due to stress and needed a break. Stopped using OPK kits but did show LH surge when she was using them, notices mucous change during ovulation. [place] every other day when she is trying to conceive. [place] had semen analysis and normal. Menses: cycles every 30 days and 3 days of flow. Contraception: none, attempting for the last 7 months. HPV vaccine: No Last Pap: 06/16/2020 normal HPV: N/A History of abnormal pap: No Last mammogram: never Sexually active: Yes Pain with intercourse: No Postcoital bleeding: No Exercise: 4-6 times a week doing [employer] OB History T0 L0 SAB0 IAB0 Ectopic0 Multiple0 Live Births0 Can [place] History LMP: 01/15/2024 (Exact Date), Having periods Age at Menarche: Age at First : Age at Menopause: Can Solderer History Comments: Sexual Activity: Yes; Male Contraception: Condom History reviewed. No pertinent past medical history.History reviewed. No pertinent surgical history. FAMILY HISTORY Problem Relation Age of Onset No Known Problems Mother No Known Problems Father SOCIAL HISTORY Social History Tobacco Use Smoking status: Never Smokeless tobacco: Never Vaping Use Vaping status: Never Used Substance Use Topics Alcohol use: Yes Comment: rarely Drug use: Never REVIEW OF SYSTEMS Abdomen: No abdominal pain, nausea, vomiting, diarrhea, or constipation. No bloating, early satiety, indigestion, or increased flatulence. Bladder: No dysuria, gross hematuria, urinary frequency, urinary urgency, or incontinence. Breast: No breast lumps, nipple d/c, overlying skin changes, redness or skin retraction. Allergies and current medication updated:Yes SENSITIVE EXAM: The sensitive examination was discussed with the Patient or Patient's Authorized Seasonal Greenery Bundler. As applicable, any other physician, advance practice provider, medical student, or other health professional student that will be observing or involved in the sensitive examination for educational or training purposes was discussed with the Patient or Authorized Seasonal Greenery Bundler. The Patient or Authorized Seasonal Greenery Bundler has agreed to proceed with the sensitive examination. (Sensitive examination includes inspection and/or palpation of the breasts, pelvis, prostate and anorectal regions). EXAM: BP 114/68 Ht 5' 6 (1.68m) Wt 171 lb (77.6kg) LMP 01/15/2024 BMI 27.61 kg/(m^2). GENERAL: pleasant, female in no apparent distress HEENT: Normocephalic, atraumatic, mucus membranes moist, and no lesions NECK: Supple, full range of motion, no adenopathy, and thyroid normal DERMATOLOGY: Normal, without lesions, non-icteric, and non-hirsute BREAST: soft, non-tender, symmetric, no dominant mass, normal nipple-areolar complex, no lymphadenopathy, and no nipple discharge CHEST: Normal inspiratory effort ABDOMEN: soft, non-tender, and no masses PELVIC: external genitalia normal, normal Bartholin's glands, urethra, Ireton's glands, no vulvar lesions, no cervical lesions, good vaginal support, physiologic discharge present, normal appearing perineal body and perianal region BIMANUAL: uterus normal size, shape and consistency, no adnexal masses, and non-tender RECTOVAGINAL: deferred. NEURO: alert and oriented x3,exam grossly non-focal EXTREMITIES: normal ASSESSMENT/PLAN: 1. Encounter for gynecological examination (general) (routine) with abnormal findings - ICD9: V72.31, ICD10: Z01.411 (primary diagnosis) - Completed pelvic and breast exam - Encouraged monthly BSE - Follow up for annual exam in one year. - PAP TEST - BACTERIAL VAGINOSIS NAAT - MYRA/TRICHOMONAS NAAT - GONORRHEA/CHLAMYDIA NAAT - HIGH RISK HUMAN PAPILLOMA VIRUS (HPV), PCR FOR DETECTION AND GENOTYPING 2. Screening for cervical cancer - ICD9: V76.2, ICD10: Z12.4 - Completed pelvic and breast exam - Encouraged monthly BSE - Follow up for annual exam in one year. - PAP TEST - HIGH RISK HUMAN PAPILLOMA VIRUS (HPV), PCR FOR DETECTION AND GENOTYPING 3. Encounter for screening for human papillomavirus (HPV) - ICD9: V73.81, ICD10: Z11.51 - PAP TEST - HIGH RISK HUMAN PAPILLOMA VIRUS (HPV), PCR FOR DETECTION AND GENOTYPING 4. Encounter for preconception consultation - ICD9: V26.49, ICD10: Z31.69 -Reviewed at any point referral to physician or infertility. Appears to be ovulating. If no in 5 months recommend referral. Discussed importance of having intercourse around ovulation if she desires . 5. Anxiety with depression - ICD9: 300.4, ICD10: F41.8 -At this time coping and do not recommend stopping medications. Reviewed ok for and discussed risks. 1) Health maintenance: Pap done with HPV. Mammogram starting age 40. Nutrition, exercise and routine health maintenance exams reviewed. Calcium/Vitamin D supplementation information provided. Lipids/glucose: followed by PCP Vitamin D: followed by PCP HPV vaccine: discussed, not interested 2) Contraception: none. Contraceptive options reviewed and information provided. 3) STD screening: Declined STD check. 4) Follow up one year or sooner as needed Camelia Herrera APRN.CNM documented in this encounter [facility] 01-30-2024 Instructions Laurie Serra APRN.CNP - 01/30/2024 10:22 PM EDT Anastacio Grullon, It was good to talk with you today. Below is a summary of the plan that we discussed during your appointment for reference. Of course, if you have any questions or concerns do not hesitate to reach out to me via a message or call. Laurie Palacios APRN.CNP PLAN AND FOLLOW UP: TREATMENT PLAN: Decrease Lexapro to 30 mg as anxiety overall has improved. Goal of decrease in medication is to address the sexual side effects as well as the metabolic side effects. Utilize Hydroxyzine as needed to manage anxiety symptoms. Utilize Ativan as needed to address severe anxiety symptoms related to intrusive thoughts. Continue engagement in individual psychotherapy. Will order monitoring lab work at the next appointment. For those experiencing a suicidal crisis: --call the National Suicide Prevention Lifeline at 988 (582.210.4386) --text the Crisis Text Line (text HOME to 518009) --call 941 and let them know you are having a mental health crisis or go to your nearest Emergency Room for stabilization. --You can also call Mobile Crisis at [phone]. Next appointment: March 06 at 8:30 am virtual -- You may call the department appointment line at [phone] to schedule your appointment. -- Please call my nurse at [phone] or send me a message in Kleo with any questions or concerns between appointments. documented in this encounter [facility] 01-25-2024 Note HNO ID: [id number] Author: LAURIE SERRA APRN.CNP Service: ? Author Type: Nurse Practitioner Type: Progress Notes Filed: 01/30/2024 22:23 Note Text: FOLLOW UP - PSYCHIATRIC PROGRESS NOTE PATIENT: Smita Nguyen DATE: January 25, 2024 Visit Type: Virtual Visit utilizing two-way audio and video for at least a portion of the visit. Consent for virtual visit obtained verbally. Confidentiality limitations with virtual visits reviewed with the patient and guardian, if present, who have accepted the risk verbally prior to proceeding with encounter. I have communicated my name and active licensure. The patient's identity and physical location were verified at the time of this visit. Either the patient or their legal junior sales representative has been informed of the risks and benefits of -- and alternatives to -- treatment through a remote evaluation and consents to proceed with the evaluation remotely. All information is from Patient report except when noted. This evaluation is NOT intended for forensic, disability or child custody purposes. CC: Presenting today for follow up regarding psychiatric medication management. HPI: Treatment Plan from Last Visit on 10/18/2023: TREATMENT PLAN: Continue Lexapro at the same dose. Consider decreasing to 30mg at next visit if patient continues to improve. Utilize Hydroxyzine as needed to manage anxiety and sleep difficulties. Decrease dose due to sedation. Utilize Ativan as needed to manage severe panic symptoms. Continue Inositol 4mg BID to help with OCD symptoms. Continue seeing individual psychotherapist every 2 weeks. Today Smita shares that she got a black eye from a ball. Got a black eye on Sunday when she was out playing with her dog. There has definitely been an improvement. What's triggering her anxiety right now is that she is trying to conceive and struggling with it. When she got her period in December, it was really hard for her. I could not be around others with kids, then I am crying, and being mean. Patient and are going to start couple's therapy. Trying to conceive as strained their relationship. Physically, things have been good for them and lab work has been normal. Has seen her nursing attendant. Has not started the recommended supplements. Reviewed that list of recommended supplements and encouraged patient to start them. Asked about continuing her compounded progesterone. Encouraged that she reach out to her Paperhanger Apprentice Yolanda to ask about that. Does still experience some intrusive thoughts, mostly when is out of town for work. No Ativan since July 15. Hydroxyzine was taken 9 times since July. Discussed Hydroxyzine being safe during when compared to Ativan. She is doing cross fit again. Restarted that in December. Has gone between 4 to 6 times a week. Working out at the gym is a big coping skill for her. Work has been more stressful. I am not as organized as I would like to be. Discussed trying a decrease in Lexapro to 30 mg. Her overall anxiety has improved. Decrease dose to also address any weight gain side effects or insulin resistance. Her libido has been impacted and we are hoping the decrease in Lexapro will help with that. Continues to engage in psychotherapy every 2 to 3 weeks. Will order lab work at the next appointment. Inquired about use of medical marijuana. Discouraged her from trying and educated on the risks related to brain health. Interval Progress: Slightly improved PATIENT DATA: Generalized Anxiety Disorder Scale (FREDO-7) 07/18/2023 10/17/2023 01/21/2024 FREDO - 7 SCORES Score 15 13 8 (0-4) minimal anxiety, (5-9) mild anxiety, (10-14) moderate anxiety, (15-21) severe anxiety Patient Health Questionnaire (PHQ-9) 07/18/2023 10/17/2023 01/21/2024 PHQ-9 Score 10 11 11 (0-4) minimal depression, (5-9) mild depression, (10-14) moderate depression, (15-19) moderately severe depression, (20-27) severe depression No past medical history on file. No past surgical history on file. ALLERGIES Allergen Reactions Azithromycin Rash, Hives, GI Upset Buspirone Mental Status Change Morphine GI Upset Current Outpatient Medications on File Prior to Visit Medication Sig vitamin B complex with C-FA-CU-ZN renal vitamins (DIATX ZN) 5-1.5-25 mg tab Take 1 tablet by mouth once daily. SACCHAROMYCES BOULARDII ORAL escitalopram oxalate (LEXAPRO) 20 mg tablet Take 2 tablets by mouth once daily. INOSITOL ORAL docosahexaenoic acid/epa (FISH OIL ORAL) cholecalciferol, vitamin D3, (VITAMIN D3 ORAL) MAGNESIUM GLYCINATE, BULK, MISC progesterone micronized (PROMETRIUM) 100 mg capsule Take 3 capsules by mouth once daily. Used for mood. Progesterone - Compound cyclobenzaprine (FLEXERIL) 10 mg tablet Take 10 mg by mouth daily at bedtime. No current facility-administered medications on file prior to visit. ROS: See HPI PFSH: See HPI VITAL SIGN (more content not included)... [facility] 01-25-2024 History of Presen t illness Narrative Images from the original note were not included. FOLLOW UP - PSYCHIATRIC PROGRESS NOTE PATIENT: Smita Nguyen DATE: January 25, 2024 Visit Type: Virtual Visit utilizing two-way audio and video for at least a portion of the visit. Consent for virtual visit obtained verbally. Confidentiality limitations with virtual visits reviewed with the patient and guardian, if present, who have accepted the risk verbally prior to proceeding with encounter. I have communicated my name and active licensure. The patient's identity and physical location were verified at the time of this visit. Either the patient or their legal junior sales representative has been informed of the risks and benefits of -- and alternatives to -- treatment through a remote evaluation and consents to proceed with the evaluation remotely. All information is from Patient report except when noted. This evaluation is NOT intended for forensic, disability or child custody purposes. CC: Presenting today for follow up regarding psychiatric medication management. HPI: Treatment Plan from Last Visit on 10/18/2023: TREATMENT PLAN: Continue Lexapro at the same dose. Consider decreasing to 30mg at next visit if patient continues to improve. Utilize Hydroxyzine as needed to manage anxiety and sleep difficulties. Decrease dose due to sedation. Utilize Ativan as needed to manage severe panic symptoms. Continue Inositol 4mg BID to help with OCD symptoms. Continue seeing individual psychotherapist every 2 weeks. Today Smita shares that she got a black eye from a ball. Got a black eye on Sunday when she was out playing with her dog. There has definitely been an improvement. What's triggering her anxiety right now is that she is trying to conceive and struggling with it. When she got her period in December, it was really hard for her. I could not be around others with kids, then I am crying, and being mean. Patient and are going to start couple's therapy. Trying to conceive as strained their relationship. Physically, things have been good for them and lab work has been normal. Has seen her nursing attendant. Has not started the recommended supplements. Reviewed that list of recommended supplements and encouraged patient to start them. Asked about continuing her compounded progesterone. Encouraged that she reach out to her Paperhanger Apprentice Yolanda to ask about that. Does still experience some intrusive thoughts, mostly when is out of town for work. No Ativan since July 15. Hydroxyzine was taken 9 times since July. Discussed Hydroxyzine being safe during when compared to Ativan. She is doing cross fit again. Restarted that in December. Has gone between 4 to 6 times a week. Working out at the gym is a big coping skill for her. Work has been more stressful. I am not as organized as I would like to be. Discussed trying a decrease in Lexapro to 30 mg. Her overall anxiety has improved. Decrease dose to also address any weight gain side effects or insulin resistance. Her libido has been impacted and we are hoping the decrease in Lexapro will help with that. Continues to engage in psychotherapy every 2 to 3 weeks. Will order lab work at the next appointment. Inquired about use of medical marijuana. Discouraged her from trying and educated on the risks related to brain health. Interval Progress: Slightly improved PATIENT DATA: Generalized Anxiety Disorder Scale (FREDO-7) 07/18/2023 10/17/2023 01/21/2024 FREDO - 7 SCORES Score 15 13 8 (0-4) minimal anxiety, (5-9) mild anxiety, (10-14) moderate anxiety, (15-21) severe anxiety Patient Health Questionnaire (PHQ-9) 07/18/2023 10/17/2023 01/21/2024 PHQ-9 Score 10 11 11 (0-4) minimal depression, (5-9) mild depression, (10-14) moderate depression, (15-19) moderately severe depression, (20-27) severe depression No past medical history on file. No past surgical history on file. ALLERGIES Allergen Reactions Azithromycin Rash, Hives, GI Upset Buspirone Mental Status Change Morphine GI Upset Current Outpatient Medications on File Prior to Visit Medication Sig vitamin B complex with C-FA-CU-ZN renal vitamins (DIATX ZN) 5-1.5-25 mg tab Take 1 tablet by mouth once daily. SACCHAROMYCES BOULARDII ORAL escitalopram oxalate (LEXAPRO) 20 mg tablet Take 2 tablets by mouth once daily. INOSITOL ORAL docosahexaenoic acid/epa (FISH OIL ORAL) cholecalciferol, vitamin D3, (VITAMIN D3 ORAL) MAGNESIUM GLYCINATE, BULK, MISC progesterone micronized (PROMETRIUM) 100 mg capsule Take 3 capsules by mouth once daily. Used for mood. Progesterone - Compound cyclobenzaprine (FLEXERIL) 10 mg tablet Take 10 mg by mouth daily at bedtime. No current facility-administered medications on file prior to visit. ROS: See HPI PFSH: See HPI VITAL SIGNS: There were no vitals filed for this visit. Last 3 Encounter BP Readings: Date: BP: 10/30/2023 102/64 06/20/2023 110/68 03/20/2023 128/70 MENTAL STATUS EXAMINATION: Appearance: Well dressed, well groomed Behavior: Behaves appropriately during the encounter Social relatedness: Euthymic Speech/Language: The patient demonstrates appropriate tone, prosody, jerry, phonetics, and syntax Mood: euthymic Affect: Full and appropriate to topic Orientation: Person, Place, Time and Situation Associations: Intact and linear Hallucinations: None Delusions: None Suicidal Ideation: No suicidal ideation, intent or plan. Homicidal Ideation: No homicidal ideation, intent or plan. Insight: Appropriate Judgment: Appropriate DATA REVIEWED: Psychiatric scales, Electronic medical record, Labs, and The PDMP report was reviewed and found to be appropriate without any signs of misuse or diversion. DIAGNOSIS: Other obsessive-compulsive disorders (primary encounter diagnosis) Fredo (generalized anxiety disorder) Metabolic syndrome Major depressive disorder, recurrent episode, moderate (hcc) Encounter for long-term (current) use of medications Psychosocial stressors Patient has stress related to conceiving. GAF: -70-61 Some mild symptoms or some difficulty in social, occupational, or school functioning, but generally functioning pretty well. TREATMENT PLAN: Decrease Lexapro to 30 mg as anxiety overall has improved. Goal of decrease in medication is to address the sexual side effects as well as the metabolic side effects. Utilize Hydroxyzine as needed to manage anxiety symptoms. Utilize Ativan as needed to address severe anxiety symptoms related to intrusive thoughts. Continue engagement in individual psychotherapy. Will order monitoring lab work at the next appointment. MEDICATION CHANGES: See above Risks and benefits of the medication, including any black box warnings, were discussed with the patient. Patient is aware to reach out with any questions, concerns, or worsening of symptoms prior to the next appointment. Patient educated on risks of substance use in combination with medications and advised that any substance use along with medications may alter their effectiveness. Follow Up: March 06 at 8:30 am Medical Decision Making: Problems: Moderate: 1+ chronic illnesses with change and 2+ stable chronic illnesses Data: Unique source(s) for external note(s) reviewed: 3+ Unique test result(s) reviewed: 3+ Independent interpretation of test from other physician/QHCP Risk: Moderate: Moderate risk from testing/treatment and Drug management Medical Decision Making Level: 4 - Moderate ADD ON PSYCHOTHERAPY CODE : No SIGNATURE: Laurie Serra APRN.CNP PATIENT NAME: Smita Nguyen DATE: January 25, 2024 TIME: 1:57 PM documented in this encounter [facility] 10-30-2023 Instructions Camelia Herrera APRN.CNM - 10/30/2023 10:13 AM EDT Day 21 progesterone (11/07/23) Day 3 of next cycle get estradiol and FSH Other labs: - WHIIVF ANTI MULLERIAN HORMONE - RUBELLA IGG ANTIBODY - VARICELLA ZOSTER IGG - HEMOGLOBIN A1C - THYROID STIMULATING HORMONE If you desire carrier screening, please feel free to contact company for pricing and let me know. I can place the order. [email or web address] If you ever desire referral to infertility please do not hesitate to ask. Can try these supplements and see what happens in the next 3 months Supplements: 1) Berberine 400 mg three times daily for PCOS 2) Inositol (Edwin-inositol and C-rpnmc-zwxvefzu 40:1 ratio)I recommend using a combination product containing edwin-inositol and k-wrubz-oxxcixac, up to 4 grams per day, for maximum benefit. Can add Iniosotil 2,000mg that you have [email or web address]://[email or web address]/products/m ix-ftopn-nhvpievm-40-1 3) Vitex https://[email or web address]/products/v ewyp-ifrmdz-vsbu-glez-capsule 4) Vitamin Urology for semen analysis documented in this encounter [facility] 10-30-2023 History of Presen t illness Narrative Smita Nguyen is a 28 year old female who presents for problem visit for conception HPI: Presenting today to discuss conception. Triyng to conceive for last 6 months. Testing OPK in the morning and clear blue for ovulation and getting positive in the last month. 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 LMP 10/17/23, cycles is every 30 days with 4-5 days of flow. Using OPK and showing LH surge. [place] every day to every other day after last day of menses. Making sure to having intercourse near and on day 14 at ovulation. Notices increased discharge at time of ovulation. No history of STDs or pelvic surgery. [place], together for 5 year. Was using condoms or withdrawal method prior to trying to conceive. OB History T0 L0 SAB0 IAB0 Ectopic0 Multiple0 Live Births0 Can [place] History LMP: 10/17/2023 (Exact Date), Having periods Age at Menarche: Age at First : Age at Menopause: Can Solderer History Comments: Sexual Activity: Yes; Male Contraception: Condom No past medical history on file. No past surgical history on file. No family history on file. Social History Tobacco Use Smoking status: Never Smokeless tobacco: Never Vaping Use Vaping Use: Never used Substance Use Topics Alcohol use: Yes Comment: rarely Drug use: Never Current Outpatient Medications Medication Sig vitamin B complex with C-FA-CU-ZN renal vitamins (DIATX ZN) 5-1.5-25 mg tab Take 1 tablet by mouth once daily. SACCHAROMYCES BOULARDII ORAL escitalopram oxalate (LEXAPRO) 20 mg tablet Take 2 tablets by mouth once daily. hydrOXYzine HCl (ATARAX) 25 mg tablet Take 1 tablet by mouth three times a day as needed for anxiety (and sleep difficulties). INOSITOL ORAL docosahexaenoic acid/epa (FISH OIL ORAL) cholecalciferol, vitamin D3, (VITAMIN D3 ORAL) MAGNESIUM GLYCINATE, BULK, MISC progesterone micronized (PROMETRIUM) 100 mg capsule Take 3 capsules by mouth once daily. Used for mood. Progesterone - Compound cyclobenzaprine (FLEXERIL) 10 mg tablet Take 10 mg by mouth daily at bedtime. [id number] (ONE-A-DAY -1) 27 mg iron- 800 mcg-235 mg cap No current facility-administered medications for this visit. Allergies As of Date: 10/30/2023 Allergen Noted Reaction AZITHROMYCIN 10/30/2023 Rash, Hives, and GI Upset BUSPIRONE 01/29/2023 Mental Status Change MORPHINE 05/02/2022 GI Upset Fully Assessed 10/30/2023 REVIEW OF SYSTEMS Abdomen: No bloating, early satiety, indigestion, or increased flatulence. No abdominal pain, nausea, vomiting, diarrhea, or constipation. Bladder: No dysuria, gross hematuria, urinary frequency, urinary urgency, or incontinence. Breast: No breast lumps, nipple d/c, overlying skin changes, redness or skin retraction. Expanded ROS: N/A Allergies and current medication updated:Yes EXAM: BP 102/64 Wt 169 lb (76.7kg) LMP 10/17/2023 GENERAL: pleasant, female in no apparent distress HEENT: Normocephalic and atraumatic NECK: Supple and full range of motion DERMATOLOGY: Normal and without lesions CHEST: Normal inspiratory effort NEURO: alert and oriented x3,exam grossly non-focal EXTREMITIES: normal ASSESSMENT AND PLAN: ASSESSMENT/PLAN: 1. Encounter for preconception consultation - ICD9: V26.49, ICD10: Z31.69 - PROGESTERONE-Day 21 of cycle - ESTRADIOL-17B BLD-Day 3 of cycle - FOLLICLE STIMULATING HORMONE-Day 3 of cycle - WHIIVF ANTI MULLERIAN HORMONE - RUBELLA IGG ANTIBODY - VARICELLA ZOSTER IGG - HEMOGLOBIN A1C - THYROID STIMULATING HORMONE -Reviewed pre-conception guidelines including folic acid supplementation, optimal timing of intercourse, avoidance of smoking, alcohol, and exposure to environmental chemicals. Discussed rubella and varicella titers and immunization if needed. Offered carrier screening. Reviewed need for evaluation if not within 12 months. -Reviewed supplements to help with fertility Vitex, inositol, and berberine - to get semen analysis with urology -Follow up in 2 months if no conception. -Referral to infertility at any time Camelia Herrera APRN.CNM documented in this encounter [facility] 10-18-2023 History of Presen t illness Narrative Images from the original note were not included. FOLLOW UP - PSYCHIATRIC PROGRESS NOTE PATIENT: Smita Nguyen DATE: October 18, 2023 Visit Type: Virtual Visit utilizing two-way audio and video for at least a portion of the visit. Consent for virtual visit obtained verbally. Confidentiality limitations with virtual visits reviewed with the patient and guardian, if present, who have accepted the risk verbally prior to proceeding with encounter. I have communicated my name and active licensure. The patient's identity and physical location were verified at the time of this visit. Either the patient or their legal junior sales representative has been informed of the risks and benefits of -- and alternatives to -- treatment through a remote evaluation and consents to proceed with the evaluation remotely. All information is from Patient report except when noted. This evaluation is NOT intended for forensic, disability or child custody purposes. Some elements were copied from the previous note which have been updated where appropriate and reflect current decision making from today October 18, 2023. ILaurie APRN.DAVY, personally performed the services described in this documentation. All medical record entries made by the MELANIE student were at my direction and in my presence. I have reviewed the chart and discharge instructions (if applicable) and agree that the record reflects my personal performance and is accurate and complete. Laurie Serra APRN.DAVY October 28, 2023 10:50 PM CC: Presenting today for follow up regarding psychiatric medication management. HPI: Treatment Plan from Last Visit on 07/18/2023: Continue Lexapro at the same dose. Utilize Hydroxyzine as needed to manage anxiety and sleep difficulties. Utilize Ativan as needed to manage severe panic symptoms. Continue Inositol 4mg BID to help with OCD symptoms. Today Smita shares that I'm good. Has had some ups and downs with intrusive thoughts and anxiety, but overall feels improved. Noticed that things were worse during the week before her period. She is leaving for vacation tomorrow. 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 Therapist recommended that she get testing through a naturopathic provider since she has had trauma and anxiety symptoms since 2011 with no notable trigger. Has tried different vitamins, IV infusions, antibiotics since seeing the naturopathic provider. Has not utilized lorazepam since July 11, 2023. Has been using hydroxyzine instead, which she finds beneficial for her anxiety. However, feels that it may be too strong, as she feels sleepy after taking it. Was taking oil of oregano, but was advised by OB to stop it, as she is trying to conceive. Has been TTC for 5 months. Was advised to try for 6 months before making an appointment to talk about options. Was previously seeing psychologist weekly, currently seeing her every 2 weeks. Goes to parents house one night a week when her is in [place] for work. Cannot remember the last time that she stayed by herself overnight. As anxiety improves, patient amenable to trying to stay alone overnight eventually. Interval Progress: Slightly improved PATIENT DATA: Generalized Anxiety Disorder Scale (FREDO-7) 06/19/2023 07/18/2023 10/17/2023 FREDO - 7 SCORES Score 17 15 13 (0-4) minimal anxiety, (5-9) mild anxiety, (10-14) moderate anxiety, (15-21) severe anxiety Patient Health Questionnaire (PHQ-9) 06/19/2023 07/18/2023 10/17/2023 PHQ-9 Score 14 10 11 (0-4) minimal depression, (5-9) mild depression, (10-14) moderate depression, (15-19) moderately severe depression, (20-27) severe depression No past medical history on file. No past surgical history on file. ALLERGIES Allergen Reactions Buspirone Mental Status Change Morphine GI Upset Current Outpatient Medications on File Prior to Visit Medication Sig escitalopram oxalate (LEXAPRO) 20 mg tablet Take 2 tablets by mouth once daily. [id number] (ONE-A-DAY -1) 27 mg iron- 800 mcg-235 mg cap INOSITOL ORAL docosahexaenoic acid/epa (FISH OIL ORAL) B-complex with vitamin C (SUPER B COMPLEX + C ORAL) cholecalciferol, vitamin D3, (VITAMIN D3 ORAL) MAGNESIUM GLYCINATE, BULK, MISC progesterone micronized (PROMETRIUM) 100 mg capsule Take 3 capsules by mouth once daily. Used for mood. Progesterone - Compound cyclobenzaprine (FLEXERIL) 10 mg tablet Take 10 mg by mouth daily at bedtime. No current facility-administered medications on file prior to visit. ROS: See HPI. All other systems negative. PFSH: See HPI VITAL SIGNS: There were no vitals filed for this visit. Last 3 Encounter BP Readings: Date: BP: 06/20/2023 110/68 03/20/2023 128/70 01/29/2023 108/64 MENTAL STATUS EXAMINATION: Mental Status Exam General/Sensorium: Alert Orientation: AAOx3 Appearance: Appears well groomed and stated age Eye contact: Appropriate Demeanor: Appropriately interactive Motor activity: Calm Speech: Articulate with appropriate rhythm and volume Affect: Congruent with mood and appropriate Thought process: Within normal limits and linear, logical, and goal-directed Associations: Normal Thought content: Appropriate and focused on history, symptoms, and management Suicidal ideation: SI: no Plan: no Intent: no Homicidal ideation: Plan: no Intent: no Abnormal/psychotic thoughts: Absent Perceptions: She does not appear internally stimulated. Intelligence: Above average Attention: Intact Memory: Short-term: Intact Long-term: Intact Language: Intact Fund of knowledge: Appropriate Insight: Good Judgment: Good Gait: Not observed Station: Sitting DATA REVIEWED: Psychiatric scales, Electronic medical record, Labs, and PDMP report. PDMP website checked and validated. All prescriptions have been APPROPRIATELY filled. No suspicious activity was identified. 10/18/2023 by Laurie Serra APRN.[employer] DIAGNOSIS: Other obsessive-compulsive disorders (primary encounter diagnosis) Fredo (generalized anxiety disorder) Recurrent major depressive disorder, in partial remission ([facility]) Encounter for long-term (current) use of medications Metabolic syndrome GAF: 70-61 Some mild symptoms or some difficulty in social, occupational, or school functioning, but generally functioning pretty well. TREATMENT PLAN: Continue Lexapro at the same dose. Consider decreasing to 30mg at next visit if patient continues to improve. Utilize Hydroxyzine as needed to manage anxiety and sleep difficulties. Decrease dose due to sedation. Utilize Ativan as needed to manage severe panic symptoms. Continue Inositol 4mg BID to help with OCD symptoms. Continue seeing individual psychotherapist every 2 weeks. MEDICATION CHANGES: Change Hydroxyzine to 25mg PRN TID. Risks and benefits of the medication, including any black box warnings, were discussed with the patient. Patient is aware to reach out with any questions, concerns, or worsening of symptoms prior to the next appointment. Patient educated on risks of substance use in combination with medications and advised that any substance use along with medications may alter their effectiveness. Follow Up: 3 months I spent a total of 34 minutes on the date of the service which included preparing to see the patient, [id number] patient care, completing clinical documentation, and counseling and educating the patient/family/caregiver, ordering medications/labs. ADD ON PSYCHOTHERAPY CODE : No SIGNATURE: Laurie Serra APRN.CNP PATIENT NAME: Smita Nguyen DATE: October 18, 2023 TIME: 8:58 AM documented in this encounter [facility] 08-17-2023 Telephone encounter Note Patient notified. She thinks menses started today. Will call with further concerns. Mora Villarreal RN [facility] 08-17-2023 Miscellaneous Notes Patient notified. She thinks menses started today. Will call with further concerns. Mora Villarreal RN Can order serum hCG if negative recommend follow up appt virtual. Camelia Herrera APRN.CNM Patient calling because she is late for menses. LMP 07/10/23. She had negative UPT today. Cycles are typically 24-31 days, this is very unusual for her. She does not use any kind of contraception. She has been cramping x1 week though. Mild intermittent that she rates 2/10 on pain scale when it does occur. She has not needed to take any ibuprofen or tylenol for it so far. Asking what she should do next. Aware ESAU is back in office tomorrow. Mora Villarreal RN documented in this encounter [facility] 08-17-2023 Telephone encounter Note Can order serum hCG if negative recommend follow up appt virtual. Camelia Herrera APRN.CNM [facility] 08-16-2023 Telephone encounter Note Patient calling because she is late for menses. LMP 07/10/23. She had negative UPT today. Cycles are typically 24-31 days, this is very unusual for her. She does not use any kind of contraception. She has been cramping x1 week though. Mild intermittent that she rates 2/10 on pain scale when it does occur. She has not needed to take any ibuprofen or tylenol for it so far. Asking what she should do next. Aware ESAU is back in office tomorrow. Mora Villarreal RN [facility] 07-18-2023 History of Presen t illness Narrative Images from the original note were not included. FOLLOW UP - PSYCHIATRIC PROGRESS NOTE PATIENT: Smita Nguyen DATE: July 18, 2023 Visit Type: Virtual Visit utilizing two-way audio and video for at least a portion of the visit. Consent for virtual visit obtained verbally. Confidentiality limitations with virtual visits reviewed with the patient and guardian, if present, who have accepted the risk verbally prior to proceeding with encounter. I have communicated my name and active licensure. The patient's identity and physical location were verified at the time of this visit. Either the patient or their legal junior sales representative has been informed of the risks and benefits of -- and alternatives to -- treatment through a remote evaluation and consents to proceed with the evaluation remotely. All information is from Patient report except when noted. This evaluation is NOT intended for forensic, disability or child custody purposes. Some elements were copied from the previous note which have been updated where appropriate and reflect current decision making from today July 18, 2023. CC: Presenting today for follow up regarding OCD and MDD HPI: Treatment Plan from Last Visit on 06/19/2023: 1. Continue Lexapro at the same dose. 2. Utilize Hydroxyzine as needed to manage anxiety and sleep difficulties. 3. Utilize Ativan to manage severe panic attacks. 4. Discussed the importance of creating structure again to build the momentum to increase motivation to engage in physical activity again. 5. Patient is concerned about the metabolic side effects from the Lexapro but she is not interested in starting Metformin currently. 6. Continue individual psychotherapy. 7. Offered the patient to engage in IOP if she continues to struggle with increase in intrusive thoughts and low moods. Today Smita shares that she has been feeling better with the improved weather. Feeling better compared to last visit. You kicked me in the right places with your comments last time. She has been getting more exercise and movement in her day. Completed a functional medicine assessment. Will be getting infusions of vitamins and take supplements orally. She has her first infusion scheduled in 2 weeks. She is going to complete an oral /saliva hormone test. The functional medicine provider is going to see if her symptoms are related to ticks or a viral infection. Reports premenstrual worsening of her anxiety. [place] that anxiety began in 2011 after she started her birthcontrol. She is only taking progesterone capsule now. She only took the birthcontrol for a couple months as she could not tolerate it. Her has been away this week and she has done well in managing her anxiety. Takes hydroxyzine during the day just a few times a month. Uses the Ativan only to address severe episodes of panic when she is at work. Has been taking inositol 4 mg twice daily. Wants to focus on taking supplements to address anxiety and decrease reliance on Ativan. Continues to engage in therapy. Have been incorporating EMDR. After July, she will be moving to once every other week. Interval Progress: Slightly improved PATIENT DATA: Generalized Anxiety Disorder Scale (FREDO-7) 04/18/2023 06/19/2023 07/18/2023 FREDO - 7 SCORES Score 14 17 15 (0-4) minimal anxiety, (5-9) mild anxiety, (10-14) moderate anxiety, (15-21) severe anxiety Patient Health Questionnaire (PHQ-9) 04/18/2023 06/19/2023 07/18/2023 PHQ-9 Score 11 14 10 (0-4) minimal depression, (5-9) mild depression, (10-14) moderate depression, (15-19) moderately severe depression, (20-27) severe depression No past medical history on file. No past surgical history on file. ALLERGIES Allergen Reactions Buspirone Mental Status Change Morphine GI Upset Current Outpatient Medications on File Prior to Visit Medication Sig [id number] (ONE-A-DAY -1) 27 mg iron- 800 mcg-235 mg cap INOSITOL ORAL docosahexaenoic acid/epa (FISH OIL ORAL) B-complex with vitamin C (SUPER B COMPLEX + C ORAL) cholecalciferol, vitamin D3, (VITAMIN D3 ORAL) MAGNESIUM GLYCINATE, BULK, MISC LORazepam (ATIVAN) 0.5 mg Take 1 tablet by mouth two times a day as needed (severe anxiety and panic attacks) for up to 30 days. escitalopram oxalate (LEXAPRO) 20 mg tablet Take 2 tablets by mouth once daily. progesterone micronized (PROMETRIUM) 100 mg capsule Take 3 capsules by mouth once daily. Used for mood. Progesterone - Compound cyclobenzaprine (FLEXERIL) 10 mg tablet Take 10 mg by mouth daily at bedtime. No current facility-administered medications on file prior to visit. ROS: All other systems negative. PFSH: See HPI VITAL SIGNS: There were no vitals filed for this visit. MENTAL STATUS EXAMINATION: Mental Status Exam General/Sensorium: Alert Orientation: AAOx3 Appearance: Appears well groomed and stated age Eye contact: Appropriate Demeanor: Appropriately interactive Motor activity: Calm Speech: Articulate with appropriate rhythm and volume Affect: Congruent with mood and appropriate Thought process: Within normal limits and linear, logical, and goal-directed Associations: Normal Thought content: Appropriate and focused on history, symptoms, and management Suicidal ideation: SI: no Plan: no Intent: no Homicidal ideation: Plan: no Intent: no Abnormal/psychotic thoughts: Absent Perceptions: She does not appear internally stimulated. Intelligence: Above average Attention: Intact Memory: Short-term: Intact Long-term: Intact Language: Intact Fund of knowledge: Appropriate Insight: Good Judgment: Good Gait: Not observed Station: Sitting DATA REVIEWED: Psychiatric scales, Electronic medical record, and [place] PDMP website checked and validated. All prescriptions have been APPROPRIATELY filled. No suspicious activity was identified. 07/18/2023 by Laurie Serra APRN.CNP DIAGNOSIS: OCD Generalized Anxiety Disorder MDD, recurrent, in partial remission Metabolic syndrome - related to current dose of Lexapro. GAF: -70-61 Some mild symptoms or some difficulty in social, occupational, or school functioning, but generally functioning pretty well. TREATMENT PLAN: Medications: Continue Lexapro at the same dose. Utilize Hydroxyzine as needed to manage anxiety and sleep difficulties. Utilize Ativan as needed to manage severe panic symptoms. Continue Inositol 4mg BID to help with OCD symptoms. Lab work: none Other: Continue individual psychotherapy. For those experiencing a suicidal crisis: --call the National Suicide Prevention Lifeline at 981 (690-087-8223) --text the Crisis Text Line (text HOME to 541223) --call 631 and let them know you are having a mental health crisis or go to your nearest Emergency Room for stabilization. --You can also call Mobile Crisis at 336-746-8137. MEDICATION CHANGES: Current medication regimen unchanged. See above for changes Risks and benefits of the medication, including any black box warnings, were discussed with the patient. Patient educated on risks of substance use in combination with medications and advised that any substance use along with medications may alter their effectiveness. Follow Up: 3 months I spent a total of 28 minutes on the date of the service which included preparing to see the patient, [id number] patient care, completing clinical documentation, and counseling and educating the patient/family/caregiver, ordering medications/labs. ADD ON PSYCHOTHERAPY CODE : No SIGNATURE: Laurie Serra APRN.CNP PATIENT NAME: Smita Nguyen DATE: July 18, 2023 TIME: 2:43 PM documented in this encounter [facility] 06-20-2023 History of Presen t illness Narrative Smita Nguyen is a 28 year old female who presents for problem visit HPI: Trying to conceive in last 3 months. Using OPK and showing LH surge. [place] every day to every other day after last day of menses. Making sure to having intercourse near and on day 14 at ovulation. Notices increased discharge at time of ovulation. LMP 3/9/24, a few days earlier than normal, lasted for 4 days. Cycles usually 27 days apart at this time. No history of STDs or pelvic surgery. [place], together for 5 year. Was using condoms or withdrawal method prior to trying to conceive. Micronutrient testing with [facility] and looking at possible tick bite that caused increased anxiety. Taking hydr\oxine and ativan for anxiety. OB History T0 L0 SAB0 IAB0 Ectopic0 Multiple0 Live Births0 Can [place] History LMP: 06/09/2023 (Exact Date), Having periods Age at Menarche: Age at First : Age at Menopause: Can Solderer History Comments: Sexual Activity: Yes; Male Contraception: Condom No past medical history on file. No past surgical history on file. No family history on file. Social History Tobacco Use Smoking status: Never Smokeless tobacco: Never Vaping Use Vaping Use: Never used Substance Use Topics Alcohol use: Yes Comment: rarely Drug use: Never Current Outpatient Medications Medication Sig [id number] (ONE-A-DAY -1) 27 mg iron- 800 mcg-235 mg cap INOSITOL ORAL docosahexaenoic acid/epa (FISH OIL ORAL) B-complex with vitamin C (SUPER B COMPLEX + C ORAL) cholecalciferol, vitamin D3, (VITAMIN D3 ORAL) MAGNESIUM GLYCINATE, BULK, MISC LORazepam (ATIVAN) 0.5 mg Take 1 tablet by mouth two times a day as needed (severe anxiety and panic attacks) for up to 30 days. escitalopram oxalate (LEXAPRO) 20 mg tablet Take 2 tablets by mouth once daily. hydrOXYzine HCl (ATARAX) 50 mg tablet Take 1 tablet by mouth at bedtime as needed for anxiety (and sleep difficulties). progesterone micronized (PROMETRIUM) 100 mg capsule Take 3 capsules by mouth once daily. Used for mood. Progesterone - Compound cyclobenzaprine (FLEXERIL) 10 mg tablet Take 10 mg by mouth daily at bedtime. magnesium glycinate 100 mg magnesium capsule Take 200 mg by mouth once daily. Cholecalciferol, Vitamin D3, 125 mcg (5,000 unit) cap Take by mouth as directed. PNV [id number] 90 mg iron- 1 mg-200 mg cap Take 1 capsule by mouth once daily. (Patient not taking: Reported on 06/20/2023) No current facility-administered medications for this visit. Allergies As of Date: 06/20/2023 Allergen Noted Reaction BUSPIRONE 01/29/2023 Mental Status Change MORPHINE 05/02/2022 GI Upset Fully Assessed 06/20/2023 REVIEW OF SYSTEMS Abdomen: No bloating, early satiety, indigestion, or increased flatulence. No abdominal pain, nausea, vomiting, diarrhea, or constipation. Bladder: No dysuria, gross hematuria, urinary frequency, urinary urgency, or incontinence. Breast: No breast lumps, nipple d/c, overlying skin changes, redness or skin retraction. Expanded ROS: N/A Allergies and current medication updated:Yes EXAM: BP 110/68 Wt 164 lb (74.4kg) LMP 06/09/2023 GENERAL: pleasant, female in no apparent distress HEENT: Normocephalic and atraumatic NECK: Supple and full range of motion CHEST: Normal inspiratory effort ABDOMEN: soft, non-tender, and no masses NEURO: alert and oriented x3,exam grossly non-focal EXTREMITIES: normal ASSESSMENT AND PLAN: 1. Encounter for preconception consultation - ICD9: V26.49, ICD10: Z31.69 -Reviewed medications. Discussed risks of xanax in but also discussed benefits of decreased anxiety. Limited use if this is something she is unable to avoid using. -Reviewed if no by 6 months can make appt and discuss further. -Reviewed pre-conception guidelines including folic acid supplementation, optimal timing of intercourse, avoidance of smoking, alcohol, and exposure to environmental chemicals. Camelia Herrera APRN.CNM documented in this encounter [facility] 06-19-2023 History of Presen t illness Narrative FOLLOW UP - PSYCHIATRIC PROGRESS NOTE Visit Type:Virtual Visit utilizing two-way audio and video for at least a portion of the visit. Consent for virtual visit obtained verbally. Confidentiality limitations with virtual visits reviewed with the patient and guardian, if present, who have accepted the risk verbally prior to proceeding with encounter. I have communicated my name and active licensure. The patient's identity and physical location were verified at the time of this visit. Either the patient or their legal junior sales representative has been informed of the risks and benefits of -- and alternatives to -- treatment through a remote evaluation and consents to proceed with the evaluation remotely. Reason for Visit: Outpatient follow-up and safety monitoring of previously prescribed psychiatric medication, psychotherapy or other treatment CC: Follow up for psychiatric medication management HPI: Treatment Plan from last visit on 04/18/2023: 1. Continue Lexapro at the same dose. 2. Discussed incorporating inositol supplement to help with intrusive thoughts. In agreement to trial and gradually increased dose to 4 gm BID. 3. Utilize Propranolol to manage physical symptoms of anxiety and intrusive thoughts. 4. Utilize hydroxyzine first to manage anxiety and sleep difficulties at night. 5. Utilize Lorazepam for severe episodes of anxiety due to intrusive thoughts. Patient is working on reducing use and utilizing hydroxyzine first. 6. Patient is going to start EMDR next week. 7. Continue individua psychotherapy. Today Smita shares that she has been doing alright. She has been able to increase the duration of the psychology visits to a week and half now. Has experienced highs and lows. Continues to notice intrusive thoughts. The homicidal thoughts returned in the past couple weeks. Denies any intent or plan. These thoughts are very distressing for her. Has been worrying about not being able to stay present. Has noticed an increase in her weight. She does not have the energy or motivation to work out. Last worked out a couple weeks ago. Feels discouraged as she is not able to lose weight. Does feel accomplished after she works out. Does notice that she has more energy and motivation to do other things after. Does not wish to trial Metformin as she does not wish to add more medication. Has been able to recently increase inositol supplement to 4 gm BID. Has not experienced any side effects from it. She is frustrated as she wants to feel normal again. She has had some glimpses of it before but feels defeated again due to the return of the intrusive thoughts. The last couple weeks she is waking up with panic again. She has been worrying about things that are upcoming in the summer. It has been more difficulty for her to stay present. In May things were better and she was actually able to reduce her Ativan use. Her mood and anxiety worsened since the beginning of May. Denies any trauma triggers in May. Uses Ativan more consistently on Wednesdays as leaves that day to work in [place]. They are staying at their new place most of the days of the week. She has been continuing to track her periods. Anxiety was worse during the menstrual cycle. Has not been using propranolol. Noticed that it was impacting her breathing when she was running. Had her last therapy session on . Did some EMDR related to anxiety attacks. She does notice that at times it is hard for her to go to bed. Feels that some nights she goes to bed at 9 and other nights she is not tired. I feel like if I can get my mind in a better place, then I will be in a better place. Risks and benefits of the medication, including any black box warnings, were discussed with the patient. Interval Progress: Slightly worse PATIENT DATA: Generalized Anxiety Disorder Scale (FREDO-7) 03/19/2023 04/18/2023 06/19/2023 FREDO - 7 SCORES Score 10 14 17 (0-4) minimal anxiety, (5-9) mild anxiety, (10-14) moderate anxiety, (15-21) severe anxiety Patient Health Questionnaire (PHQ-9) 06/19/2023 04/18/2023 03/19/2023 PHQ-9 Score 14 11 11 (0-4) minimal depression, (5-9) mild depression, (10-14) moderate depression, (15-19) moderately severe depression, (20-27) severe depression PROMIS Global Health 02/24/2023 03/19/2023 06/19/2023 PROMIS Global Health - (T-Scores - the mean of general population = 50. Five points is a clinically meaningful difference.) Physical T-Score 47.7 44.9 44.9 Mental T-Score 28.4 31.3 No past medical history on file. No past surgical history on file. Current Outpatient Medications Medication Sig Dispense Refill escitalopram oxalate (LEXAPRO) 20 mg tablet Take 2 tablets by mouth once daily. 180 tablet 0 propranolol (INDERAL) 20 mg tablet Take 1 tablet by mouth three times a day as needed (intrusive thoughts and physical symptoms of anxiety). 90 tablet 0 hydrOXYzine HCl (ATARAX) 50 mg tablet Take 1 tablet by mouth at bedtime as needed for anxiety (and sleep difficulties). 90 tablet 0 magnesium glycinate 100 mg magnesium capsule Take 200 mg by mouth once daily. progesterone micronized (PROMETRIUM) 100 mg capsule Take 3 capsules by mouth once daily. Used for mood. Progesterone - Compound 90 capsule 11 Cholecalciferol, Vitamin D3, 125 mcg (5,000 unit) cap Take by mouth as directed. PNV [id number] 90 mg iron- 1 mg-200 mg cap Take 1 capsule by mouth once daily. 30 capsule 3 cyclobenzaprine (FLEXERIL) 10 mg tablet Take 10 mg by mouth daily at bedtime. No current facility-administered medications for this visit. ROS: See HPI PFSH: See HPI VITAL SIGNS: There were no vitals filed for this visit. MENTAL STATUS EXAM: CONSTITUTIONAL: Casually dressed ORIENTATION: Person, Place, Time and Situation MEMORY: Recent intact, Remote intact, Immediate intact CONCENTRATION: Anxiety interferes MOOD: sad and anxious AFFECT: Tearful at times SPEECH : Clear & distinct LANGUAGE : Normal ASSOCIATIONS: Intact THOUGHT PROCESS : Logical, Coherent, and Rational PROGRESSION : There was no evidence of disturbance in thought perception or progression. FUND OF KNOWLEDGE : Appropriate and Adequate SUICIDE: None HOMICIDE: None DATA REVIEWED: Psychiatric scales, Labs, Electronic medical record, and Regional Branch Manager notes DIAGNOSIS: OCD Generalized Anxiety Disorder MDD, recurrent, moderate Metabolic syndrome - related to current dose of Lexapro. GAF: -60-51 Moderate symptoms or moderate difficulty in social, occupational or school functioning. TREATMENT PLAN: 1. Continue Lexapro at the same dose. 2. Utilize Hydroxyzine as needed to manage anxiety and sleep difficulties. 3. Utilize Ativan to manage severe panic attacks. 4. Discussed the importance of creating structure again to build the momentum to increase motivation to engage in physical activity again. 5. Patient is concerned about the metabolic side effects from the Lexapro but she is not interested in starting Metformin currently. 6. Continue individual psychotherapy. 7. Offered the patient to engage in IOP if she continues to struggle with increase in intrusive thoughts and low moods. MEDICATION CHANGES: Current medication regimen unchanged. PDMP report was reviewed and found to be appropriate without any signs of misuse or diversion. Follow Up: 4 weeks I spent a total of 45 minutes on the date of the service which included preparing to see the patient, [id number] patient care, completing clinical documentation, obtaining and/or reviewing separately obtained history, counseling and educating the patient/family/caregiver, ordering medications, tests, or procedures, communicating with other HCPs (not separately reported), independently interpreting results (not separately reported), and communicating results to the patient/family/caregiver. ADD ON PSYCHOTHERAPY CODE : No SIGNATURE: Laurie Serra APRN.CNP PATIENT NAME: Smita Nguyen DATE: June 19, 2023 TIME: 2:07 PM documented in this encounter [facility] 02-26-2023 Telephone encounter Note Collaborated with patient's psychologist Maia Lockett regarding patient's current presentation, medication management plan and coping strategies. [facility] Work Phone: 02-26-2023 Miscellaneous Notes Collaborated with patient's psychologist Maia Lockett regarding patient's current presentation, medication management plan and coping strategies. Patient verified by name and . Maia Lockett, her Psychologist is calling, She would like to consult with Laurie about this patient. She can be reached at [phone]. documented in this encounter [facility] 02-26-2023 History of Presen t illness Narrative FOLLOW UP - PSYCHIATRIC PROGRESS NOTE Visit Type:Virtual Visit utilizing two-way audio and video for at least a portion of the visit. Consent for virtual visit obtained verbally. Confidentiality limitations with virtual visits reviewed with the patient and guardian, if present, who have accepted the risk verbally prior to proceeding with encounter. I have communicated my name and active licensure. The patient's identity and physical location were verified at the time of this visit. Either the patient or their legal junior sales representative has been informed of the risks and benefits of -- and alternatives to -- treatment through a remote evaluation and consents to proceed with the evaluation remotely. Reason for Visit: Outpatient follow-up and safety monitoring of previously prescribed psychiatric medication, psychotherapy or other treatment CC: Follow up regarding OCD and intrusive thoughts HPI: Treatment plan from last visit on 02/05/2023: 1. Start Hydroxyzine to help with anxiety and sleep at bedtime. 2. Continue the rest of the psychiatric medications at the same dose. 3. Continue individual psychotherapy weekly. Today Smita shares that I am okay. She has started staying at her new house. She has had to take 0.5 mg of Ativan in the evening. Feels that anxiety and intrusive thoughts have been worse around that time. She has been able to go out with the family and being around people. She started EMDR with her psychologist. Patient felt that it was very emotional. Smita would like this provider to collaborate with her psychologist. Has not been utilizing hydroxyzine. Sleep has been okay for the most part besides last night. She is consistent in taking in her Lexapro. Has used propranolol and Ativan as needed. Denies side effects from these medications. Denies changes in her appetite. Shares that she has a lot of stress about work. Sometimes intrusive thoughts are related to school. Propranolol and Ativan help her manage these. She has been practicing a meditation and using essential oils. She has been utilizing affirmations. Risks and benefits of the medication, including any black box warnings, were discussed with the patient. PDMP report was reviewed and found to be appropriate without any signs of misuse or diversion. Interval Progress: Slightly improved PATIENT DATA: Generalized Anxiety Disorder Scale (FREDO-7) FREDO - 7 SCORES 01/22/2023 02/05/2023 02/24/2023 FREDO-7 Score 12 18 17 (0-4) minimal anxiety, (5-9) mild anxiety, (10-14) moderate anxiety, (15-21) severe anxiety Patient Health Questionnaire (PHQ-9) PHQ-9 01/22/2023 02/05/2023 02/24/2023 Score 8 9 10 (0-4) minimal depression, (5-9) mild depression, (10-14) moderate depression, (15-19) moderately severe depression, (20-27) severe depression PROMIS Global Health PROMIS Global Health - (T-Scores - the mean of general population = 50. Five points is a clinically meaningful difference.) 06/16/2022 11/17/2022 02/24/2023 Physical T-Score 50.8 44.9 47.7 Mental T-Score 38.8 28.4 28.4 No past medical history on file. No past surgical history on file. Current Outpatient Medications Medication Sig Dispense Refill progesterone micronized (PROMETRIUM) 100 mg capsule Take 3 capsules by mouth once daily. Used for mood. Progesterone - Compound 90 capsule 11 LORazepam (ATIVAN) 0.5 mg Take 1 tablet by mouth two times a day as needed (severe anxiety and panic attacks) for up to 30 days. 30 tablet 0 escitalopram oxalate (LEXAPRO) 20 mg tablet Take 2 tablets by mouth once daily. 180 tablet 0 propranolol (INDERAL) 20 mg tablet Take 1 tablet by mouth three times a day as needed (intrusive thoughts and physical symptoms of anxiety). 90 tablet 0 hydrOXYzine HCl (ATARAX) 50 mg tablet Take 1 tablet by mouth at bedtime as needed for anxiety (and sleep difficulties). 30 tablet 0 Cholecalciferol, Vitamin D3, 125 mcg (5,000 unit) cap Take by mouth as directed. PNV [id number] 90 mg iron- 1 mg-200 mg cap Take 1 capsule by mouth once daily. 30 capsule 3 cyclobenzaprine (FLEXERIL) 10 mg tablet Take 10 mg by mouth daily at bedtime. No current facility-administered medications for this visit. ROS: See HPI PFSH: See HPI VITAL SIGNS: There were no vitals filed for this visit. MENTAL STATUS EXAM: CONSTITUTIONAL: Casually dressed ORIENTATION: Person, Place, Time and Situation MEMORY: Recent intact, Remote intact, Immediate intact CONCENTRATION: Normal MOOD: anxious AFFECT: Full and appropriate to topic SPEECH : Clear & distinct LANGUAGE : Normal ASSOCIATIONS: Intact THOUGHT PROCESS : Logical, Coherent, and Rational PROGRESSION : There was no evidence of disturbance in thought perception or progression. FUND OF KNOWLEDGE : Appropriate and Adequate SUICIDE: None HOMICIDE: None DATA REVIEWED: Psychiatric scales, Electronic medical record, and collateral from psychologist DIAGNOSIS: PRIMARY: OCD Secondary : Generalized Anxiety Disorder Other : MDD, recurrent, in partial remission GAF: -70-61 Some mild symptoms or some difficulty in social, occupational, or school functioning, but generally functioning pretty well. TREATMENT PLAN: 1. Continue Psychiatric medications at the same dose. Rarely uses hydroxyzine. 2. Collaborate with her psychologist Maia Lockett. 3. Continue individual psychotherapy and EMDR. 4. Complete EKG for monitoring purposes at the next appointment. MEDICATION CHANGES: Current medication regimen unchanged. Prescriptions given PDMP report was reviewed and found to be appropriate without any signs of misuse or diversion. Follow Up: March 20 at 2 pm I spent a total of 38 minutes on the date of the service which included preparing to see the patient, [id number] patient care, completing clinical documentation, obtaining and/or reviewing separately obtained history, counseling and educating the patient/family/caregiver, ordering medications, tests, or procedures, communicating with other HCPs (not separately reported), independently interpreting results (not separately reported), and communicating results to the patient/family/caregiver. ADD ON PSYCHOTHERAPY CODE : No SIGNATURE: Laurie Serra APRN.CNP PATIENT NAME: Smita Nguyen DATE: February 26, 2023 TIME: 9:01 AM documented in this encounter [facility] 02-16-2023 Miscellaneous Notes Last annual with [facility] 01/29/23. Requested Prescriptions Pending Prescriptions Disp Refills progesterone micronized (PROMETRIUM) 100 mg capsule 90 capsule 11 Sig: Take 3 capsules by mouth once daily. Used for mood. Progesterone - Compound Mora Villarreal RN documented in this encounter [facility] 02-08-2023 Telephone encounter Note Patient verified by name and . Maia Lockett, her Psychologist is calling, She would like to consult with Laurie about this patient. She can be reached at [phone]. [facility] 02-05-2023 History of Presen t illness Narrative FOLLOW UP - PSYCHIATRIC PROGRESS NOTE Visit Type:Virtual Visit utilizing two-way audio and video for at least a portion of the visit. Consent for virtual visit obtained verbally. Confidentiality limitations with virtual visits reviewed with the patient and guardian, if present, who have accepted the risk verbally prior to proceeding with encounter. I have communicated my name and active licensure. The patient's identity and physical location were verified at the time of this visit. Either the patient or their legal junior sales representative has been informed of the risks and benefits of -- and alternatives to -- treatment through a remote evaluation and consents to proceed with the evaluation remotely. Reason for Visit: Outpatient follow-up and safety monitoring of previously prescribed psychiatric medication, psychotherapy or other treatment CC: Follow up regarding OCD and intrusive thoughts HPI: Treatment plan from last visit on 01/22/2023: Continue Lexapro at the same dose. Utilize Propranolol to manage the physical symptoms of anxiety and intrusive thoughts. Utilize Ativan as needed to manage severe episodes of anxiety if propranolol is not able to manage the symptoms. Continue individual psychotherapy. Follow up in 2 weeks. Today Smita shares that things have been up and down with her anxiety. She has had 3 days when she did not need to utilize her Ativan. Did experience some intrusive thoughts about her mental health. Started to worry that she had schizoaffective disorder. She was able to stay at the new house with her for 3 days. Planning on adding another day next week. Her parents are going to travel to [place] for 1 week but her will be in town and not traveling for work. She has experienced some panic attacks out of the blue with some intrusive thoughts. She feels that this has triggered more anxiety. She has an appointment with her psychologist to discuss coping with this tomorrow. She has been struggling with anxiety at night and difficulty falling asleep. Has tried hydroxyzine in the past for anxiety but not sleep. Has been using propranolol first before Ativan in managing the intrusive thoughts. Continues to utilize Propranolol to manage anxiety and panic symptoms at work. Risks and benefits of the medication, including any black box warnings, were discussed with the patient. Interval Progress: Slightly worse PATIENT DATA: Generalized Anxiety Disorder Scale (FREDO-7) FREDO - 7 SCORES 01/09/2023 01/22/2023 02/05/2023 FREDO-7 Score 13 12 18 (0-4) minimal anxiety, (5-9) mild anxiety, (10-14) moderate anxiety, (15-21) severe anxiety Patient Health Questionnaire (PHQ-9) PHQ-9 01/09/2023 01/22/2023 02/05/2023 Score 9 8 9 (0-4) minimal depression, (5-9) mild depression, (10-14) moderate depression, (15-19) moderately severe depression, (20-27) severe depression PROMIS Global Health PROMIS Global Health - (T-Scores - the mean of general population = 50. Five points is a clinically meaningful difference.) 06/24/2019 06/16/2022 11/17/2022 Physical T-Score 54.1 50.8 44.9 Mental T-Score 50.8 38.8 28.4 History reviewed. No pertinent past medical history. History reviewed. No pertinent surgical history. Current Outpatient Medications Medication Sig Dispense Refill LORazepam (ATIVAN) 1 mg tablet Take 1 mg by mouth three times a day as needed. progesterone micronized (PROMETRIUM) 100 mg capsule Take 3 capsules by mouth once daily. Used for mood. Progesterone - Compound 90 capsule 0 escitalopram oxalate (LEXAPRO) 20 mg tablet Take 2 tablets by mouth once daily. 60 tablet 0 propranolol (INDERAL) 20 mg tablet Take 1 tablet by mouth three times daily as needed (intrusive thoughts and physical symptoms of anxiety). 90 tablet 0 Cholecalciferol, Vitamin D3, 125 mcg (5,000 unit) cap Take by mouth as directed. PNV [id number] 90 mg iron- 1 mg-200 mg cap Take 1 capsule by mouth once daily. 30 capsule 3 cyclobenzaprine (FLEXERIL) 10 mg tablet No current facility-administered medications for this visit. ROS: GENERAL: Negative for malaise, significant weight loss and fever. HEENT: No changes in hearing or vision, no nose bleeds or other nasal problems. RESPIRATORY: Negative for cough, wheezing and shortness of breath. CARDIOVASCULAR: Negative for chest pain, leg swelling and palpitations. GI: Negative for abdominal discomfort, blood in stools or black stools. : Negative for dysuria, frequency and incontinence. MUSCULOSKELETAL: Negative for joint pain or swelling, back pain, and muscle pain. SKIN: Negative for lesions, rash, and itching. HEMATOLOGY/LYMPHOLOGY Negative for prolonged bleeding, bruising easily, and swollen nodes. ENDOCRINE: Negative for cold or heat intolerance, polyuria, polydipsia and goiter. NEURO: Negative for headaches, syncope, seizures and paralysis. PFSH: See HPI VITAL SIGNS: There were no vitals filed for this visit. MENTAL STATUS EXAM: CONSTITUTIONAL: Appropriately dressed, Casually dressed ORIENTATION: Person, Place, Time and Situation MEMORY: Recent intact, Remote intact, Immediate intact CONCENTRATION: Normal MOOD: sad and mildly anxious AFFECT: Tearful at times SPEECH : Clear & distinct LANGUAGE : Normal ASSOCIATIONS: Intact THOUGHT PROCESS : Logical, Coherent, and Rational PROGRESSION : There was no evidence of disturbance in thought perception or progression. FUND OF KNOWLEDGE : Appropriate and Adequate SUICIDE: None HOMICIDE: None DATA REVIEWED: Psychiatric scales, Electronic medical record, and Regional Branch Manager notes DIAGNOSIS: PRIMARY: OCD Secondary : Generalized Anxiety Disorder Other : MDD, recurrent, in partial remission GAF: -70-61 Some mild symptoms or some difficulty in social, occupational, or school functioning, but generally functioning pretty well. TREATMENT PLAN: 1. Start Hydroxyzine to help with anxiety and sleep at bedtime. 2. Continue the rest of the psychiatric medications at the same dose. 3. Continue individual psychotherapy weekly. MEDICATION CHANGES: Add hydroxyzine to help with sleep and anxiety. Follow Up: 3 weeks I spent a total of 26 minutes on the date of the service which included preparing to see the patient, [id number] patient care, completing clinical documentation, obtaining and/or reviewing separately obtained history, counseling and educating the patient/family/caregiver, ordering medications, tests, or procedures, independently interpreting results (not separately reported), and communicating results to the patient/family/caregiver. ADD ON PSYCHOTHERAPY CODE : No SIGNATURE: Laurie Serra APRN.CNP PATIENT NAME: Smita Nguyen DATE: February 05, 2023 TIME: 10:02 AM documented in this encounter [facility] 01-29-2023 History of Presen t illness Narrative Smita is a 27 year old who presents for an annual gynecologic exam without complaints. Recent episode in September with mental health and has decided to not conceive at this time. Coping ok with this but just disappointed. Continues to work with Laurie Rousseau NP and psychology at [facility]. Getting ready to start EMDR. Menses: cycles every 30 days and 4-5 days of flow. Contraception: condoms. Was trying to concieve but medication issues and stopped at this time. HPV vaccine: No Last Pap: normal HPV: negative History of abnormal pap: No Last mammogram: never Sexually active: Yes Time with current partner: Mckinley for 4 years, for almost a year Pain with intercourse: No Postcoital bleeding: No Exercise: 3 times a week some form of physical activity Diet: Regular diet, no restrictions. Seatbelt use: Yes OB History T0 L0 SAB0 IAB0 Ectopic0 Multiple0 Live Births0 Can [place] History LMP: 01/26/2023 (Exact Date), Having periods Age at Menarche: Age at First : Age at Menopause: Can [place]derer History Comments: Sexual Activity: Yes; Male Contraception: Condom History reviewed. No pertinent past medical history.History reviewed. No pertinent surgical history.History reviewed. No pertinent family history.SOCIAL HISTORY Social History Tobacco Use Smoking status: Never Smokeless tobacco: Never Vaping Use Vaping Use: Never used Substance Use Topics Alcohol use: Yes Comment: rarely Drug use: Never REVIEW OF SYSTEMS Abdomen: No abdominal pain, nausea, vomiting, diarrhea, or constipation. No bloating, early satiety, indigestion, or increased flatulence. Bladder: No dysuria, gross hematuria, urinary frequency, urinary urgency, or incontinence. Breast: No breast lumps, nipple d/c, overlying skin changes, redness or skin retraction. Allergies and current medication updated:Yes EXAM: BP 108/64 Ht 5' 6 (1.68m) Wt 155 lb 12.8 oz (70.7kg) LMP 01/26/2023 BMI 25.16 kg/(m^2). GENERAL: pleasant, female in no apparent distress HEENT: Normocephalic, atraumatic, mucus membranes moist, and no lesions NECK: Supple, full range of motion, no adenopathy, and thyroid normal DERMATOLOGY: Normal, without lesions, non-icteric, and non-hirsute BREAST: soft, non-tender, symmetric, no dominant mass, normal nipple-areolar complex, no lymphadenopathy, and no nipple discharge CHEST: Normal inspiratory effort ABDOMEN: soft, non-tender, and no masses PELVIC: external genitalia normal, normal Bartholin's glands, urethra, Ireton's glands, no vulvar lesions, no cervical lesions, good vaginal support, physiologic discharge present, normal appearing perineal body and perianal region BIMANUAL: uterus normal size, shape and consistency, no adnexal masses, and non-tender RECTOVAGINAL: deferred. NEURO: alert and oriented x3,exam grossly non-focal EXTREMITIES: normal ASSESSMENT/PLAN: 1. Encounter for gynecological examination (general) (routine) with abnormal findings - ICD9: V72.31, ICD10: Z01.411 (primary diagnosis) - Completed pelvic and breast exam - Encouraged monthly BSE - Follow up for annual exam in one year. 2. Encounter for preconception consultation - ICD9: V26.49, ICD10: Z31.69 -Discussed working with psychiatry for medications that are safe in prior to conception. 1) Health maintenance: Pap/HPV up to date. Mammogram starting age 40. Nutrition, exercise and routine health maintenance exams reviewed. Calcium/Vitamin D supplementation information provided. Lipids/glucose: followed by PCP Vitamin D: followed by PCP 2) Contraception: condoms. Contraceptive options reviewed and information provided. 3) STD screening: Declined STD check. 4) Follow up one year or sooner as needed Camelia Herrera APRN.CNM documented in this encounter [facility] 01-22-2023 History of Presen t illness Narrative FOLLOW UP - PSYCHIATRIC PROGRESS NOTE Visit Type:Virtual Visit utilizing two-way audio and video for at least a portion of the visit. Consent for virtual visit obtained verbally. Confidentiality limitations with virtual visits reviewed with the patient and guardian, if present, who have accepted the risk verbally prior to proceeding with encounter. I have communicated my name and active licensure. The patient's identity and physical location were verified at the time of this visit. Either the patient or their legal junior sales representative has been informed of the risks and benefits of -- and alternatives to -- treatment through a remote evaluation and consents to proceed with the evaluation remotely. Reason for Visit: Outpatient follow-up and safety monitoring of previously prescribed psychiatric medication, psychotherapy or other treatment CC: Follow up regarding intrusive thoughts and anxiety HPI: Plan from last visit: Continue Lexapro at the same dose. Utilize Propranolol to manage the physical symptoms of anxiety and intrusive thoughts. Utilize Ativan as needed to manage severe episodes of anxiety if propranolol is not able to manage the symptoms. Continue individual psychotherapy. Follow up in 2 weeks. Today Smita shares that she has been using propranolol to manage her anxiety. She was able to go and spend time in [place] with and friends. She has been able to do things that contributed to anxiety. She is proud that she attempted them instead of avoiding them. She attempted to stay at the new house but experienced anxiety. She has gradually been going there and cooking. Hoping to spend the night next weekend there. Yesterday was a good day. She spent time with family doing fall activities. Intrusive thoughts are only occurring when she is more anxious and if she experiences anticipatory anxiety. Uses 0.5 mg of Ativan along with Propranolol every time she is going into work. Worried about going in without the medication. Will work on managing anxiety and relying less on the Ativan. Propranolol has been helpful and we discussed utilizing that more. Denies any side effects from the Propranolol and Lexapro. Has been able to manage incorporating self-care in her routine. Denies concerns with sleep or appetite. Risks and benefits of the medication, including any black box warnings, were discussed with the patient. Interval Progress: Slightly improved PATIENT DATA: Generalized Anxiety Disorder Scale (FREDO-7) FREDO - 7 SCORES 01/09/2023 01/09/2023 01/22/2023 FREDO-7 Score 12 13 12 (0-4) minimal anxiety, (5-9) mild anxiety, (10-14) moderate anxiety, (15-21) severe anxiety Patient Health Questionnaire (PHQ-9) PHQ-9 01/09/2023 01/09/2023 01/22/2023 Score 7 9 8 (0-4) minimal depression, (5-9) mild depression, (10-14) moderate depression, (15-19) moderately severe depression, (20-27) severe depression PROMIS Global Health PROMIS Global Health - (T-Scores - the mean of general population = 50. Five points is a clinically meaningful difference.) 06/24/2019 06/16/2022 11/17/2022 Physical T-Score 54.1 50.8 44.9 Mental T-Score 50.8 38.8 28.4 History reviewed. No pertinent past medical history. History reviewed. No pertinent surgical history. Current Outpatient Medications Medication Sig Dispense Refill progesterone micronized (PROMETRIUM) 100 mg capsule Take 3 capsules by mouth once daily. Used for mood. Progesterone - Compound 90 capsule 0 LORazepam (ATIVAN) 1 mg tablet Take 1 tablet by mouth two times a day as needed for anxiety (for intrusive thoughts) for up to 14 days. 14 tablet 0 escitalopram oxalate (LEXAPRO) 20 mg tablet Take 2 tablets by mouth once daily. 60 tablet 0 propranolol (INDERAL) 20 mg tablet Take 1 tablet by mouth three times daily as needed (intrusive thoughts and physical symptoms of anxiety). 90 tablet 0 Cholecalciferol, Vitamin D3, 125 mcg (5,000 unit) cap Take by mouth as directed. PNV [id number] 90 mg iron- 1 mg-200 mg cap Take 1 capsule by mouth once daily. 30 capsule 3 cyclobenzaprine (FLEXERIL) 10 mg tablet No current facility-administered medications for this visit. ROS: GENERAL: Negative for malaise, significant weight loss and fever. HEENT: No changes in hearing or vision, no nose bleeds or other nasal problems. RESPIRATORY: Negative for cough, wheezing and shortness of breath. CARDIOVASCULAR: Negative for chest pain, leg swelling and palpitations. GI: Negative for abdominal discomfort, blood in stools or black stools. : Negative for dysuria, frequency and incontinence. MUSCULOSKELETAL: Negative for joint pain or swelling, back pain, and muscle pain. SKIN: Negative for lesions, rash, and itching. HEMATOLOGY/LYMPHOLOGY Negative for prolonged bleeding, bruising easily, and swollen nodes. ENDOCRINE: Negative for cold or heat intolerance, polyuria, polydipsia and goiter. NEURO: Negative for headaches, syncope, seizures and paralysis. PFSH: See HPI VITAL SIGNS: There were no vitals filed for this visit. MENTAL STATUS EXAM: CONSTITUTIONAL: Casually dressed ORIENTATION: Person, Place, Time and Situation MEMORY: Recent intact, Remote intact, Immediate intact CONCENTRATION: Normal MOOD: mildly anxious AFFECT: Full and appropriate to topic SPEECH : Clear & distinct LANGUAGE : Normal ASSOCIATIONS: Intact THOUGHT PROCESS : Logical, Coherent, and Rational PROGRESSION : There was no evidence of disturbance in thought perception or progression. FUND OF KNOWLEDGE : Appropriate and Adequate SUICIDE: None HOMICIDE: None DATA REVIEWED: Psychiatric scales and Electronic medical record DIAGNOSIS: PRIMARY: Anxiety Disorder Obsessive-Compulsive Disorder Secondary : Anxiety Disorder Generalized Anxiety Disorder Other : MDD, recurrent, in partial remission GAF: -70-61 Some mild symptoms or some difficulty in social, occupational, or school functioning, but generally functioning pretty well. TREATMENT PLAN: 1. Continue Lexapro at the same dose. 2. Work on taking Ativan only for severe anxiety episodes related to work. Patient has been able to reduce dose and has been using Propranolol first to manage intrusive episodes of anxiety. 3. Continue individual psychotherapy weekly. MEDICATION CHANGES: Current medication regimen unchanged. PDMP report was reviewed and found to be appropriate without any signs of misuse or diversion. She is aware to reach out with any questions, concerns, or worsening of symptoms prior to the next appointment. Follow Up: 2 weeks I spent a total of 26 minutes on the date of the service which included preparing to see the patient, [id number] patient care, completing clinical documentation, obtaining and/or reviewing separately obtained history, counseling and educating the patient/family/caregiver, ordering medications, tests, or procedures, and communicating results to the patient/family/caregiver. ADD ON PSYCHOTHERAPY CODE : No SIGNATURE: Laurie Serra APRN.CNP PATIENT NAME: Smita Nguyen DATE: January 22, 2023 TIME: 9:32 AM documented in this encounter [facility] 01-16-2023 Miscellaneous Notes Called Rasheeda Chang, cert pharmacy tech and given Camelia Herrera's directive Pharmacy can verify what patient prefers, I am ok to keep sublingual but can discuss cost with patient. Camelia Herrera APRN.[facility] pharmacy calling and wanted to know on the progestrone, she had been getting sublingual compound. Do you want to continue that or change to capsule? Please advise. Alexandrea Danielle LPN documented in this encounter [facility] 01-15-2023 Miscellaneous Notes Patient scheduled for annual exam with [facility] 01/29. Requested Prescriptions Pending Prescriptions Disp Refills progesterone micronized (PROMETRIUM) 100 mg capsule 90 capsule 0 Sig: Take 3 capsules by mouth once daily. Used for mood. Progesterone - Compound HARISH MAGALLANES RN documented in this encounter [facility] 01-09-2023 History of Presen t illness Narrative Images from the original note were not included. PSYC FOLLOW UP - PSYCHIATRIC PROGRESS NOTE DIAGNOSIS: OCD - intrusive thoughts Generalized Anxiety Disorder MDD, recurrent, in partial remission GAF: -70-61 Some mild symptoms or some difficulty in social, occupational, or school functioning, but generally functioning pretty well. TREATMENT PLAN: Continue Lexapro at the same dose. Utilize Propranolol to manage the physical symptoms of anxiety and intrusive thoughts. Utilize Ativan as needed to manage severe episodes of anxiety if propranolol is not able to manage the symptoms. Continue individual psychotherapy. Follow up in 2 weeks. The effects and side effects of all the medications were reviewed in detail with the patient. She is in agreement with the treatment plan and aware to reach out with any questions, concerns, or worsening of symptoms prior to the next appointment. PDMP report was reviewed and found to be appropriate without any signs of misuse or diversion. CC: Follow up for psychiatric medication management. HPI: Smita Ngyuen is a 27 year old Female with a history of FREDO, OCD, and MDD presenting today for follow-up. Date of last visit: 01/02/2023 Plan from last visit: Increase Lexapro dose to help manage anxiety and intrusive thoughts. Utilize propranolol to help with physical symptoms of anxiety as well as intrusive thoughts. Utilize Ativan to manage severe episodes of anxiety if propranolol is not able to manage and anxiety symptoms. Continue individual psychotherapy Today Smita shares that she went on running with her dog. Today is the first day that she only took 1/2 tablet of Ativan. This week going to religious was better than last week. She continues to work. Adjusted better to 's work schedule. She has really benefited from working with her psychologist. She did order a weighted blanket. She is going to start yoga once a week. She still has not moved into her new house but would like to get there. Has utilized the propranolol last week. It helps with physical symptoms of panic but not the thoughts related to anxiety. Intrusive thoughts now are more fleeting in nature. Interval Progress: Improved Risks and benefits of the medication, including any black box warnings, were discussed with the patient. Social History: See HPI PATIENT DATA: Generalized Anxiety Disorder Scale (FREDO-7) FREDO - 7 SCORES 12/26/2022 01/01/2023 01/09/2023 FREDO-7 Score 21 13 12 (0-4) minimal anxiety, (5-9) mild anxiety, (10-14) moderate anxiety, (15-21) severe anxiety Patient Health Questionnaire (PHQ-9) PHQ-9 12/26/2022 01/01/2023 01/09/2023 Score 14 9 7 (0-4) minimal depression, (5-9) mild depression, (10-14) moderate depression, (15-19) moderately severe depression, (20-27) severe depression ROS: General: Negative for fever, malaise, unintentional weight loss HEENT: Negative for recent changes in vision or hearing, no nasal drainage Respiratory: Negative for cough, wheezing or SOB Cardiovascular: Negative for chest pain GI: Negative for nausea, vomiting, change in bowel habits MUSCULOSKELETAL: Negative for acute back or joint pain SKIN: Negative for rash NEURO: Negative for headaches, seizures, focal neurological deficits All other systems negative. VITAL SIGNS: BP Temp Pulse Resp SpO2 MENTAL STATUS EXAMINATION: Appearance: Appropriately groomed, appears stated age Behavior: Appropriately engaged Psychomotor: No psychomotor agitation Cognition Level of Consciousness: Awake and alert. No fluctuation in wakefulness. Orientation: Grossly oriented Memory: Intact Attention/Concentration: Good Fund of Knowledge: Able to demonstrate an awareness of current events. Mood: Mildly anxious Affect: Congruent to mood Speech/Language: Appropriate tone, prosody, jerry, phonetics, and syntax Thought Form: Goal-directed. No loosening of associations. Thought Content: No delusions noted or endorsed. Perceptual Disturbances: Did not appear to respond to auditory stimuli. Safety: Suicidal Ideations: No suicidal ideation, intent or plan. Homicidal Ideations: No homicidal ideation, intent or plan. Insight: Appropriate Judgment: Appropriate I spent a total of 26 minutes on the date of the service which included preparing to see the patient, [id number] patient care, completing clinical documentation, and counseling and educating the patient/family/caregiver, ordering medications/labs. Laurie Serra APRN.DAVY January 09, 2023 4:36 PM This note was partially generated using [employer] voice recognition system. Note was reviewed for accuracy. There may be minor misspellings or grammar miscues with [employer] voice recognition. documented in this encounter [facility] 01-02-2023 History of Presen t illness Narrative Images from the original note were not included. PSYC FOLLOW UP - PSYCHIATRIC PROGRESS NOTE DIAGNOSIS: OCD - intrusive thoughts Generalized Anxiety Disorder MDD, recurrent, in partial remission GAF: -60-51 Moderate symptoms or moderate difficulty in social, occupational or school functioning. TREATMENT PLAN: Increase Lexapro dose to help manage anxiety and intrusive thoughts. Utilize propranolol to help with physical symptoms of anxiety as well as intrusive thoughts. Utilize Ativan to manage severe episodes of anxiety if propranolol is not able to manage and anxiety symptoms. Continue individual psychotherapy Medication Update: Lexapro 20 mg - take 2 tablets once daily. Continue the rest of the psychiatric medications at the same dose. The effects and side effects of all the medications were reviewed in detail with the patient. She is in agreement with the treatment plan and aware to reach out with any questions, concerns, or worsening of symptoms prior to the next appointment. PDMP report was reviewed and found to be appropriate without any signs of misuse or diversion. CC: Follow up for psychiatric medication management. HPI: Smita Nguyen is a 27 year old Female with a history of FREDO, OCD and MDD presenting today for follow-up. Date of last visit: 12/26/2022 Plan from last visit: Discontinue Xanax due to lack of efficacy. Patient will utilize Ativan instead to manage overwhelming intrusive thoughts. Utilize propranolol to manage physical symptoms of anxiety and panic as well as intrusive thoughts. Patient is aware to utilize propranolol first prior to Ativan. Continue Lexapro at the same dose. Consider DBT based IOP for further support. Patient has an intake for individual psychotherapy next week. Follow-up next Sunday. Today Smita shares that she has noticed the Ativan is supporting her intrusive thoughts and anxiety. She was able to work and was also able to go to the [place] fest. Sunday she went to the fall fest and she did not take any PRN medication. She did have intermittent anxiety but it was manageable. She is not having new intrusive thoughts but she does feel anxious thinking about the ones she had in the past. The propranolol is helpful in managing some of the physical symptoms pf anxiety. Denies any side effects from her current medications. She will be seeing a psychologist weekly. She had an intake yesterday. She connected well with that provider. They also discussed incorporating DBT techniques in their sessions. Interval Progress: Slightly Improved Risks and benefits of the medication, including any black box warnings, were discussed with the patient. Social History: See HPI PATIENT DATA: Generalized Anxiety Disorder Scale (FREDO-7) FREDO - 7 SCORES 12/15/2022 12/26/2022 01/01/2023 FREDO-7 Score 20 21 13 (0-4) minimal anxiety, (5-9) mild anxiety, (10-14) moderate anxiety, (15-21) severe anxiety Patient Health Questionnaire (PHQ-9) PHQ-9 12/15/2022 12/26/2022 01/01/2023 Score 19 14 9 (0-4) minimal depression, (5-9) mild depression, (10-14) moderate depression, (15-19) moderately severe depression, (20-27) severe depression ROS: General: Negative for fever, malaise, unintentional weight loss HEENT: Negative for recent changes in vision or hearing, no nasal drainage Respiratory: Negative for cough, wheezing or SOB Cardiovascular: Negative for chest pain GI: Negative for nausea, vomiting, change in bowel habits MUSCULOSKELETAL: Negative for acute back or joint pain SKIN: Negative for rash NEURO: Negative for headaches, seizures, focal neurological deficits All other systems negative. VITAL SIGNS: BP 118/66 (01/02/23 1458) Temp Pulse 84 (01/02/23 1458) Resp SpO2 MENTAL STATUS EXAMINATION: Appearance: Appropriately groomed, appears stated age Behavior: Appropriately engaged Psychomotor: No psychomotor agitation Cognition Level of Consciousness: Awake and alert. No fluctuation in wakefulness. Orientation: Grossly oriented Memory: Intact Attention/Concentration: Good Fund of Knowledge: Able to demonstrate an awareness of current events. Mood: Mildly anxious Affect: Tearful at times Speech/Language: Appropriate tone, prosody, jerry, phonetics, and syntax Thought Form: Goal-directed. No loosening of associations. Thought Content: No delusions noted or endorsed. Perceptual Disturbances: Did not appear to respond to auditory stimuli. Safety: Suicidal Ideations: No suicidal ideation, intent or plan. Homicidal Ideations: No homicidal ideation, intent or plan. Insight: Appropriate Judgment: Appropriate I spent a total of 28 minutes on the date of the service which included preparing to see the patient, [id number] patient care, completing clinical documentation, and counseling and educating the patient/family/caregiver, ordering medications/labs. Laurie Serra APRN.CNP January 02, 2023 3:11 PM This note was partially generated using [employer] voice recognition system. Note was reviewed for accuracy. There may be minor misspellings or grammar miscues with [employer] voice recognition. documented in this encounter [facility] 12-21-2022 Miscellaneous Notes Spoke with the patient in detail about her experience during the IOP intake. Support was provided regarding some increased anxiety. Patient would rather work 1:1 with a psychologist and has an appointment scheduled in 2 weeks. Will be able to work with a psychologist on a weekly basis. Patient requesting a call from provider, states she met with IOP and wanted to discuss that with you. documented in this encounter [facility] 12-15-2022 History of Presen t illness Narrative Images from the original note were not included. PSYC FOLLOW UP - PSYCHIATRIC PROGRESS NOTE DIAGNOSIS: Intrusive thoughts Generalized Anxiety Disorder MDD, recurrent, moderate GAF: -60-51 Moderate symptoms or moderate difficulty in social, occupational or school functioning. TREATMENT PLAN: Increase Lexapro to 30 mg to address anxiety and intrusive thoughts. Utilize xanax only as needed during the daytime to help with severe anxiety symptoms. Utilize Ativan only at bedtime to manage intrusive thoughts and severe anxiety related to them. Start [facility] program. Has an intake for individual psychotherapy in December. Follow up in 2 to 3 weeks. The effects and side effects of all the medications were reviewed in detail with the patient. She is in agreement with the treatment plan and aware to reach out with any questions, concerns, or worsening of symptoms prior to the next appointment. PDMP report was reviewed and found to be appropriate without any signs of misuse or diversion. CC: Follow up for psychiatric medication management With the patient consent, visit was performed virtually. I have communicated my name and active licensure. The patient's identity and physical location were verified at the time of this visit. Either the patient or their legal junior sales representative has been informed of the risks and benefits of -- and alternatives to -- treatment through a remote evaluation and consents to proceed with the evaluation remotely. HPI: Smita Lebron is a 27 year old Female with a history of FREDO and MDD presenting today for follow-up. Date of last visit: 12/01/2022 Plan from last visit: Continue Lexapro at the same does as it was recently increased. Utilize Xanax only as needed during the daytime for severe anxiety symptoms. Utilize Ativan only at bedtime to manage intrusive thoughts and severe anxiety related to them. Start individual psychotherapy. Has an intake on 12/11. Follow up in 2 weeks. Today Smita shares that she is doing okay. Each day has been rough. Mornings and evenings are the worse. She continues to use xanax during the day and Ativan at night. Continues to struggle with intrusive thoughts. Wakes up feeling nauseous and panicked. She has not been having normal bowel movements. She finds that she has to force herself to eat. She has been struggling with intrusive thoughts if she is not busy. It would be so easy right now as they are all sleeping. These HI thoughts really scare her. She was tearful talking about these thoughts. The Benzodiazepines help with these intrusive thoughts. She has to take a Xanax to help with work related stress. There have been times when she has been so distracted and occupied at Will be seeing a psychologist at [facility] in [place]. Has an intake scheduled in December. She has not tried to move into their new house. She does not feel ready for it at this time. She has good support in her mother. She has started going back to the gym. Interval Progress: Slightly improved Risks and benefits of the medication, including any black box warnings, were discussed with the patient. Social History: See HPI PATIENT DATA: Generalized Anxiety Disorder Scale (FREDO-7) FREDO - 7 SCORES 11/24/2022 12/01/2022 12/15/2022 FREDO-7 Score 21 20 20 (0-4) minimal anxiety, (5-9) mild anxiety, (10-14) moderate anxiety, (15-21) severe anxiety Patient Health Questionnaire (PHQ-9) PHQ-9 11/24/2022 12/01/2022 12/15/2022 Score 20 21 19 (0-4) minimal depression, (5-9) mild depression, (10-14) moderate depression, (15-19) moderately severe depression, (20-27) severe depression ROS: See HPI General: Negative for fever, malaise, unintentional weight loss HEENT: Negative for recent changes in vision or hearing, no nasal drainage Respiratory: Negative for cough, wheezing or SOB Cardiovascular: Negative for chest pain GI: Negative for nausea, vomiting, change in bowel habits MUSCULOSKELETAL: Negative for acute back or joint pain SKIN: Negative for rash NEURO: Negative for headaches, seizures, focal neurological deficits All other systems negative. VITAL SIGNS: BP Temp Pulse Resp SpO2 MENTAL STATUS EXAMINATION: Appearance: Appropriately groomed, appears stated age Behavior: Appropriately engaged Psychomotor: No psychomotor agitation Cognition Level of Consciousness: Awake and alert. No fluctuation in wakefulness. Orientation: Grossly oriented Memory: Intact Attention/Concentration: Good Fund of Knowledge: Able to demonstrate an awareness of current events. Mood: Anxious, Sad Affect: Tearful Speech/Language: Appropriate tone, prosody, jerry, phonetics, and syntax Thought Form: Goal-directed. No loosening of associations. Thought Content: No delusions noted or endorsed. Perceptual Disturbances: Did not appear to respond to auditory stimuli. Safety: Suicidal Ideations: No suicidal ideation, intent or plan. Homicidal Ideations: No homicidal ideation, intent or plan. Insight: Appropriate Judgment: Appropriate I spent a total of 28 minutes on the date of the service which included preparing to see the patient, [id number] patient care, completing clinical documentation, and counseling and educating the patient/family/caregiver, ordering medications/labs. Laurie Serra APRN.DAVY December 15, 2022 5:03 PM This note was partially generated using [employer] voice recognition system. Note was reviewed for accuracy. There may be minor misspellings or grammar miscues with [employer] voice recognition. documented in this encounter [facility] 11-21-2022 History of Presen t illness Narrative Images from the original note were not included. PSYC FOLLOW UP - PSYCHIATRIC PROGRESS NOTE DIAGNOSIS: Generalized Anxiety Disorder - experiences intrusive thoughts MDD, recurrent, in partial remission GAF: -60-51 Moderate symptoms or moderate difficulty in social, occupational or school functioning. TREATMENT PLAN: Use Ativan temporarily only as needed to manage intrusive thoughts. Patient will finish the small quantity of this medication that was provided to her in the ER. Continue Lexapro at 10 mg dose. Consider increase at the Sunday appointment to address patient's anxiety once intrusive thoughts resolve with the discontinuation of Buspar. Restart Xanax as needed only to address severe anxiety symptoms. Continue individual psychotherapy. Consider IOP at [facility]. Follow up on Sunday. The effects and side effects of all the medications were reviewed in detail with the patient. She is in agreement with the treatment plan and aware to reach out with any questions, concerns, or worsening of symptoms prior to the next appointment. PDMP report was reviewed and found to be appropriate without any signs of misuse or diversion. CC: Follow up for psychiatric medication management. I have communicated my name and active licensure. The patient's identity and physical location were verified at the time of this visit. Either the patient or their legal junior sales representative has been informed of the risks and benefits of -- and alternatives to -- treatment through a remote evaluation and consents to proceed with the evaluation remotely. HPI: Smita Lebron is a 27 year old Female with a history of FREDO and MDD presenting today for follow-up. Date of last visit: 11/20/2022 Plan from last visit: Discontinue Buspar. 2. Ativan 1 mg - take 1 tablet twice daily as needed during the day and 2 mg at bedtime to help with anxiety and intrusive thoughts. 3. Continue Lexapro at the same dose. 4. Discontinue Xanax. Today Smita shares that she started taking Buspar consistently around October 24. She had more intrusive thoughts with Buspar and they were very negative in nature. She does not have any intrusive thoughts since she stopped Buspar yesterday. She is struggling with more anxiety overall as she is only taking Lexapro 10 mg. Patient had trailed the Buspar as she wanted to find an as needed medication to address her anxiety and discontinue the use of Xanax. She would like to start a family and did not wish to rely on Xanax to manage her anxiety. She did go into work today and reports that it went well. Took Ativan prior to going. Continues to struggle with anxiety and it is impacting her appetite. She has very good support in her and her mother and both were able to join the appointment. We discussed different ways in which they can support the patient. Questions pertaining to medication, side effects, and effects were discussed in detail. Other ways of managing stress and anxiety as well as sleep difficulties were discussed in detail. Interval Progress: Slightly improved Risks and benefits of the medication, including any black box warnings, were discussed with the patient. Social History: See HPI PATIENT DATA: Generalized Anxiety Disorder Scale (FREDO-7) FREDO - 7 SCORES 08/23/2022 11/17/2022 11/20/2022 FREDO-7 Score 20 21 20 (0-4) minimal anxiety, (5-9) mild anxiety, (10-14) moderate anxiety, (15-21) severe anxiety Patient Health Questionnaire (PHQ-9) PHQ-9 08/23/2022 11/17/2022 11/20/2022 Score 12 19 15 (0-4) minimal depression, (5-9) mild depression, (10-14) moderate depression, (15-19) moderately severe depression, (20-27) severe depression ROS: General: Negative for fever, malaise, unintentional weight loss HEENT: Negative for recent changes in vision or hearing, no nasal drainage Respiratory: Negative for cough, wheezing or SOB Cardiovascular: Negative for chest pain GI: Negative for nausea, vomiting, change in bowel habits MUSCULOSKELETAL: Negative for acute back or joint pain SKIN: Negative for rash NEURO: Negative for headaches, seizures, focal neurological deficits All other systems negative. VITAL SIGNS: BP 132/78 (11/21/22 1429) Temp Pulse 80 (11/21/22 1429) Resp SpO2 MENTAL STATUS EXAMINATION: Appearance: Appropriately groomed, appears stated age Behavior: Appropriately engaged Psychomotor: No psychomotor agitation Cognition Level of Consciousness: Awake and alert. No fluctuation in wakefulness. Orientation: Grossly oriented Memory: Intact Attention/Concentration: Good Fund of Knowledge: Able to demonstrate an awareness of current events. Mood: Anxious, Sad Affect: Tearful Speech/Language: Appropriate tone, prosody, jerry, phonetics, and syntax Thought Form: Goal-directed. No loosening of associations. Thought Content: No delusions noted or endorsed. Perceptual Disturbances: Did not appear to respond to auditory stimuli. Safety: Suicidal Ideations: No suicidal ideation, intent or plan. Homicidal Ideations: No homicidal ideation, intent or plan. Insight: Appropriate Judgment: Appropriate I spent a total of 38 minutes on the date of the service which included preparing to see the patient, [id number] patient care, completing clinical documentation, and counseling and educating the patient/family/caregiver, ordering medications/labs. Laurie Serra APRN.[employer] November 21, 2022 2:35 PM This note was partially generated using [employer] voice recognition system. Note was reviewed for accuracy. There may be minor misspellings or grammar miscues with [employer] voice recognition. documented in this encounter [facility] 11-20-2022 Instructions Laurie Serra APRN.DAVY - 11/20/2022 3:13 PM EDT Anastacio Grullon, It was good to talk with you today. Below is a summary of the plan that we discussed during your appointment for reference. Of course, if you have any questions or concerns do not hesitate to reach out to me via a message or call. Laurie Palacios APRN.DAVY PLAN AND FOLLOW UP: YOU SHOULD SEEK IMMEDIATE MEDICAL ATTENTION AT THE NEAREST EMERGENCY DEPARTMENT OR BY CALLING 911, IF ANY OF THE FOLLOWING OCCURS: - New or worsening thoughts of harming yourself (suicidal thoughts) or others (homicidal thoughts) - Not feeling safe at home or worrying about your ability to remain safe at home If you are having thoughts of harming yourself or others, then you can: - Call the National Suicide Hotline at 1-830-EGDQTAD ( ) or 5-865-927-TALK (0505) - Text 4HOPE to 668760 Medication Update: Discontinue Buspar. 2. Ativan 1 mg - take 1 tablet twice daily as needed during the day and 2 mg at bedtime to help with anxiety and intrusive thoughts. 3. Continue Lexapro at the same dose. 4. Discontinue Xanax. Next appointment: Tomorrow at 2:30 pm in person -- You may call the department appointment line at [phone] to schedule your appointment. -- Please call my nurse Annalisa at [phone] or send me a message in Kleo with any questions or concerns between appointments. documented in this encounter [facility] 11-20-2022 History of Presen t illness Narrative Images from the original note were not included. PSYC FOLLOW UP - PSYCHIATRIC PROGRESS NOTE DIAGNOSIS: FREDO MDD, recurrent, severe without psychotic symptoms. Unresolved grief GAF: -50-41 Serious symptoms or any serious impairment in social, occupational or school functioning. TREATMENT PLAN: Discontinue Buspar due to possible contribution to the negative intrusive thoughts. Utilize Ativan as needed during the day and at night to manage the intrusive thoughts. Discontinue Xanax due to lack of efficacy. Consider Switching Lexapro to a different anti-depressant if patient continues to struggle with intrusive thoughts. Referred to [facility] IOP program for additional support. Discussed safety plan and red flags that would warrant an inpatient admission. Follow up tomorrow. Medication Update: Discontinue Buspar. 2. Ativan 1 mg - take 1 tablet twice daily as needed during the day and 2 mg at bedtime to help with anxiety and intrusive thoughts. 3. Continue Lexapro at the same dose. 4. Discontinue Xanax. The effects and side effects of all the medications were reviewed in detail with the patient. She is in agreement with the treatment plan and aware to reach out with any questions, concerns, or worsening of symptoms prior to the next appointment. PDMP report was reviewed and found to be appropriate without any signs of misuse or diversion. CC: Follow up regarding intrusive thoughts. With the patient consent, visit was performed virtually. I have communicated my name and active licensure. The patient's identity and physical location were verified at the time of this visit. Either the patient or their legal junior sales representative has been informed of the risks and benefits of -- and alternatives to -- treatment through a remote evaluation and consents to proceed with the evaluation remotely. HPI: Smita Lebron is a 27 year old Female with a history of FREDO, MDD, Unresolved grief presenting today for follow-up. Date of last visit: 08/23/2022 Plan from last visit: Increase Buspar to address anxiety symptoms. Increase Lexapro to help with mood and anxiety symptoms. Utilize xanax only as needed for severe episodes of anxiety. Continue individual psychotherapy weekly. Look into starting EMDR therapy to address recent and past trauma. Look into grief support group to process her best friend's sudden loss in an accident October 2021. Complete EKG for monitoring purposes prior to the next appointment due to prison use of Lexapro. Follow up in December. Today Smita scheduled a visit sooner to discuss some changes in her symptoms. In July, her Lexapro was increased to 20 mg. In October she noticed intrusive thoughts. Her xanax did not help with the intrusive thoughts. She was also taking her Buspar more consistently at the increased dose. She was recommended to decrease her Lexapro dose to 10 mg. But she has been experiencing increase in anxiety and intrusive thoughts. Has been worrying about the next round of intrusive thoughts. She went to the ER at [facility] 2 nights ago. Counseling center came over and did an intake. They suggested completing a safety plan. Since Xanax was not working, ER gave 2 mg Ativan. It still made her feel less anxious and she was able to rest. She has been waking up with anxiety and Ativan has been helpful. 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 The intrusive thoughts are worse at night. They are about her hurting other people. She is very scared and tearful due to this. Interval Progress: Worse Risks and benefits of the medication, including any black box warnings, were discussed with the patient. Social History: See HPI PATIENT DATA: Generalized Anxiety Disorder Scale (FREDO-7) FREDO - 7 SCORES 08/23/2022 11/17/2022 11/20/2022 FREDO-7 Score 20 21 20 (0-4) minimal anxiety, (5-9) mild anxiety, (10-14) moderate anxiety, (15-21) severe anxiety Patient Health Questionnaire (PHQ-9) PHQ-9 08/23/2022 11/17/2022 11/20/2022 Score 12 19 15 (0-4) minimal depression, (5-9) mild depression, (10-14) moderate depression, (15-19) moderately severe depression, (20-27) severe depression ROS: General: Negative for fever, malaise, unintentional weight loss HEENT: Negative for recent changes in vision or hearing, no nasal drainage Respiratory: Negative for cough, wheezing or SOB Cardiovascular: Negative for chest pain GI: Negative for nausea, vomiting, change in bowel habits MUSCULOSKELETAL: Negative for acute back or joint pain SKIN: Negative for rash NEURO: Negative for headaches, seizures, focal neurological deficits All other systems negative. VITAL SIGNS: BP Temp Pulse Resp SpO2 MENTAL STATUS EXAMINATION: Appearance: Appropriately groomed, appears stated age Behavior: Appropriately engaged Psychomotor: No psychomotor agitation Cognition Level of Consciousness: Awake and alert. No fluctuation in wakefulness. Orientation: Grossly oriented Memory: Intact Attention/Concentration: Good Fund of Knowledge: Able to demonstrate an awareness of current events. Mood: Sad and Anxious Affect: Tearful Speech/Language: Appropriate tone, prosody, jerry, phonetics, and syntax Thought Form: Goal-directed. No loosening of associations. Thought Content: No delusions noted or endorsed. Perceptual Disturbances: Did not appear to respond to auditory stimuli. Safety: Suicidal Ideations: No suicidal ideation, intent or plan. Homicidal Ideations: No homicidal ideation, intent or plan. Insight: Appropriate Judgment: Appropriate I spent a total of 38 minutes on the date of the service which included preparing to see the patient, [id number] patient care, completing clinical documentation, and counseling and educating the patient/family/caregiver, ordering medications/labs. Laurie Serra APRN.CNP November 20, 2022 10:59 AM This note was partially generated using [employer] voice recognition system. Note was reviewed for accuracy. There may be minor misspellings or grammar miscues with [employer] voice recognition. documented in this encounter [facility] 11-20-2022 Emergency department Note Pt was discharged without her prescriptions. Voice message was left for pt and her spouse regarding prescriptions. Cinthia Angulo RN 11/20/22 013 [facility] 11-20-2022 Emergency department Note Pt was discharged without her prescriptions. Voice message was left for pt and her spouse regarding prescriptions. Cinthia Angulo RN 11/20/22 013 In 47 getting dressed for discharge Barbara Beck 11/20/[address] Donald at bedside Barbara Beck 11/20/22 0056 Pt resting in room. Respirations even and non labored. at bedside. Cinthia Angulo RN 11/20/22 0028 Pt out to restroom to provide urine sample Barbara Jina Kiran 11/19/22 2346 Sophia W[place]ORTH at bedside to medicate Barbara Muro Kiran 11/19/22 2332 Patient given bagged lunch from [employer] MILES Elena 11/19/222300 Patient has 3 bags of belongings. MILES Elena 11/19/222256 Protective services at patient bedside offering patient cup of water. MILES Elena 11/19/222253 Physician is at patient bedside MILES Elena 11/19/222233 Patient has 3 bag of belongings. Patient was wanded and changed into two gowns. MILES Elena 11/19/222203 EKG at patient bedside MILES Elena 11/19/222155 Registration at patient bedside MILES Elena 11/19/222155 Registration at patient bedside MILES Elena 11/19/222135 Dr. Darling at patient bedside MILES Elena 11/19/222131 Physician at patient bedside MILES Elena 11/19/222115 Pt changed into gowns. Protective Services secured pt's belongings. Pt was wanded. Cinthia Angulo RN 11/19/222110 Emergency Department Encounter [facility] EMERGENCY DEPT Patient: Smita Lebron : 1995 Date of Evaluation: 11/19/2022 ED Supervising Physician: LUKAS DARLING MD I independently examined and evaluated Smita Lebron. This will serve as my Supervisory note and shared attestation. I did perform a substantive portion of the visit including all aspects of the Medical Decision Making. I wore appropriate PPE for the entirety of this encounter. History: In brief, Smita Lebron is a 27 y.o. female that presents to the emergency department complaining of continuing to have intrusive thoughts. She states that these intrusive thoughts are primarily to hurt people. She states that it is unclear who she would hurt. She states that she has had thoughts of stabbing people with knives. She notes that her mother removed all the knives in her house. She notes that she has had medication changes. She had been on Lexapro 20 mg daily. Its been taken down to 10 mg daily. I asked her when that dose was changed and she stated in May,. She notes that she had been on Xanax at times as well as Ativan. She denies any suicidal ideation. Focused exam: On examination the patient is a young female found lying on a cart. She is alert and oriented. She answers questions appropriately. She appears to be anxious. She demonstrates pressured speech but there is no flight of ideas. Oropharynx is clear. Chest is clear. Normal cardiac exam. Abdomen is soft flat and is nontender. Bowel sounds are normal active. Differential Diagnosis: Differential diagnosis includes depression with suicidal ideation, untoward effect of medication. Diagnostic testing undertaken, as well as those tests considered but not ordered: Medical screening laboratory work will be obtained. We will ask psychiatry to evaluate the patient. ED testing and evaluation will be obtained to help differentiate these diagnostic possibilities and determine the most likely cause. Brief ED course/MDM: We will ask psychiatry to evaluate the patient. Sources of History: I evaluated other historical sources including previous outpatient records and admission records. Patient is aware of care plan. All diagnostic, treatment, and disposition decisions were made by myself in conjunction with the Resident. I also supervised hunter portions of any procedures performed by the Resident. For all further details of the patient's emergency department visit, please see their documentation. (Comment: Please note this report has been produced using speech recognition software and may contain errors related to that system including errors in grammar, punctuation, and spelling, as well as words and phrases that may be inappropriate. If there are any questions or concerns please feel free to contact the dictating provider for clarification.) LUKAS DARLING MD [employer] Lukas Darling MD 11/19/222138 documented in this encounter [facility] 11-20-2022 Hospital Discharg e instructions Yulia Donald MD - 11/20/2022 1:33 AM EDT As we discussed please keep your scheduled appointment with your psychiatrist on Sunday, take all medications as prescribed and use vistaril every six hours as needed for anxiety. Return to the ED if you have further concerning symptoms, thoughts of self harm or harm of others. documented in this encounter [facility] 11-20-2022 Emergency department Note In 47 getting dressed for discharge Barbara Beck 11/20/22 0117 [facility] 11-20-[address] Donald at bedside Barbara Beck 11/20/22 0056 [facility] 11-20-2022 Emergency department Note Pt resting in room. Respirations even and non labored. at bedside. Cinthia Angulo RN 11/20/22 0028 [facility] 11-19-2022 Emergency department Note Pt out to restroom to provide urine sample Barbara Beck 11/19/22 2346 [facility] 11-19-2022 Emergency department Note Sophia RN at bedside to medicate Barbara Beck 11/19/22 2332 [facility] 11-19-2022 Emergency department Note Patient given bagged lunch from [employer] Sterling 11/19/22 2301 [facility] 11-19-2022 Emergency department Note Patient has 3 bags of belongings. MILES Elena 11/19/222256 [facility] 11-19-2022 Emergency department Note Protective services at patient bedside offering patient cup of water. MILES Elena 11/19/222253 [facility] 11-19-2022 Emergency department Note Physician is at patient bedside MILES Elena 11/19/222233 [facility] 11-19-2022 Note NOTE: This result is for medical treatment only. Analysis performed using non-forensic procedures. [facility] 11-19-2022 Emergency department Note Patient has 3 bag of belongings. Patient was wanded and changed into two gowns. MILES Elena 11/19/222203 [facility] 11-19-2022 Emergency department Note EKG at patient bedside MILES Elena 11/19/222155 [facility] 11-19-2022 Emergency department Note Registration at patient bedside MILES Elena 11/19/222155 [facility] 11-19-2022 Emergency department Note Registration at patient bedside MILES Elena 11/19/222135 [facility] 11-19-[address] Darling at patient bedside MILES Elena 11/19/222131 [facility] 11-19-2022 Emergency department Note Physician at patient bedside MILES Elena 11/19/222115 [facility] 11-19-2022 Emergency department Note Pt changed into gowns. Protective Services secured pt's belongings. Pt was wanded. Cinthia Angulo RN 11/19/222110 [facility] 11-19-2022 Physician Emergency department Note Emergency Department Encounter [facility] EMERGENCY DEPT Patient: Smita Lebron : 1995 Date of Evaluation: 11/19/2022 ED Supervising Physician: LUKAS DARLING MD I independently examined and evaluated Smita Lebron. This will serve as my Supervisory note and shared attestation. I did perform a substantive portion of the visit including all aspects of the Medical Decision Making. I wore appropriate PPE for the entirety of this encounter. History: In brief, Smita Lebron is a 27 y.o. female that presents to the emergency department complaining of continuing to have intrusive thoughts. She states that these intrusive thoughts are primarily to hurt people. She states that it is unclear who she would hurt. She states that she has had thoughts of stabbing people with knives. She notes that her mother removed all the knives in her house. She notes that she has had medication changes. She had been on Lexapro 20 mg daily. Its been taken down to 10 mg daily. I asked her when that dose was changed and she stated in May,. She notes that she had been on Xanax at times as well as Ativan. She denies any suicidal ideation. Focused exam: On examination the patient is a young female found lying on a cart. She is alert and oriented. She answers questions appropriately. She appears to be anxious. She demonstrates pressured speech but there is no flight of ideas. Oropharynx is clear. Chest is clear. Normal cardiac exam. Abdomen is soft flat and is nontender. Bowel sounds are normal active. Differential Diagnosis: Differential diagnosis includes depression with suicidal ideation, untoward effect of medication. Diagnostic testing undertaken, as well as those tests considered but not ordered: Medical screening laboratory work will be obtained. We will ask psychiatry to evaluate the patient. ED testing and evaluation will be obtained to help differentiate these diagnostic possibilities and determine the most likely cause. Brief ED course/MDM: We will ask psychiatry to evaluate the patient. Sources of History: I evaluated other historical sources including previous outpatient records and admission records. Patient is aware of care plan. All diagnostic, treatment, and disposition decisions were made by myself in conjunction with the Resident. I also supervised hunter portions of any procedures performed by the Resident. For all further details of the patient's emergency department visit, please see their documentation. (Comment: Please note this report has been produced using speech recognition software and may contain errors related to that system including errors in grammar, punctuation, and spelling, as well as words and phrases that may be inappropriate. If there are any questions or concerns please feel free to contact the dictating provider for clarification.) LUKAS DARLING MD [employer] Lukas Darling MD 11/19/222138 [employer] Phone: 11-19-2022 Hospital Discharg e instructions Patient Education 11/19/2022 03:20:24 Anxiety Reaction Anxiety Reaction Anxiety is the feeling we all get when we think something bad might happen. It is a normal response to stress and usually causes only a mild reaction. When anxiety becomes more severe, it can interfere with daily life. In some cases, you may not even be aware of what it is you re anxious about. There may also be a genetic link or it may be a learned behavior in the home. Both psychological and physical triggers cause stress reaction. It's often a response to fear or emotional stress, real or imagined. This stress may come from home, family, work, or social relationships. During an anxiety reaction, you may feel: Helpless Nervous Depressed Irritable Your body may show signs of anxiety in many ways. You may experience: Dry mouth Shakiness Dizziness Weakness Trouble breathing Breathing fast (hyperventilating) Chest pressure Sweating Headache Nausea Diarrhea Tiredness Inability to sleep Sexual problems Home care Try to locate the sources of stress in your life. They may not be obvious. These may include: oDaily hassles of life (such as traffic jams, missed appointments, or car troubles) oMajor life changes, both good (new baby or job promotion) and bad (loss of job or loss of loved one) oOverload: feeling that you have too many responsibilities and can't take care of all of them at once oFeeling helpless or feeling that your problems are beyond what you re able to solve Notice how your body reacts to stress. Learn to listen to your body signals. This will help you take action before the stress becomes severe. When you can, do something about the source of your stress. (Avoid hassles, limit the amount of change that happens in your life at one time and take a break when you feel overloaded). Unfortunately, many stressful situations can't be avoided. It is necessary to learn how to better manage stress. There are many proven methods that will reduce your anxiety. These include simple things like exercise, good nutrition, and adequate rest. Also, there are certain techniques that are helpful: oRelaxation oBreathing exercises oVisualization oBiofeedback oMeditation For more information about this, consult your healthcare provider or go to a local bookstore and review the many books and tapes available on this subject. Follow-up care If you feel that your anxiety is not responding to self-help measures, contact your healthcare provider or make an appointment with a counselor. You may need short-term psychological counseling and temporary medicine to help you manage stress. Call 911 Call 911 if any of these happen: Trouble breathing Confusion Drowsiness or trouble wakening Fainting or loss of consciousness Rapid heart rate Seizure New chest pain that becomes more severe, lasts longer, or spreads into your shoulder, arm, neck, jaw, or back When to seek medical advice Call your healthcare provider right away if any of these happen: Your symptoms get worse Severe headache not relieved by rest and mild pain reliever [phone] [employer]. [address] [place] [address]. All rights reserved. This information is not intended as a substitute for professional medical care. Always follow your healthcare professional's instructions. Follow Up Care 11/18/2022 23:22:21 With:[facility] Address: When:2-4 days [facility] 11-19-2022 Note Discharge Instructions Thank you for allowing [facility] to assist you with your healthcare needs. The following is important discharge information regarding your hospital visit. Diagnosis from Today's Visit Anxiety Psychiatric screening exam What to Do Next Instructions from Your Care Team No qualifying data available. Post Acute Orders No qualifying data available. You Need to Schedule the Following Appointments Follow Up with [facility] When Within 2-4 days Where: Allergies Amoxil (rash) erythromycin (RASH) morphine (Nausea) Medications Please ask your primary doctor or pharmacist before taking any other medication not listed, including over the counter drugs, herbal medications, vitamins and or supplements as they may interact with your home medications. What How Much When Why Instructions Last Dose New LORazepam (LORazepam 1 mg oral tablet) 1 tab(s) by mouth Every 8 hours as needed for as needed for anxiety Anxiety Duration: 5 Days 1-2 tabs Printed Prescription Unchanged ALPRAZolam (ALPRAZolam 1 mg oral tablet) As needed for as needed for anxiety Unchanged busPIRone (busPIRone 10 mg oral tablet) 1 tab(s) by mouth Two (2) times a day Unchanged cyclobenzaprine (cyclobenzaprine 10 mg oral tablet) Unchanged escitalopram (escitalopram 10 mg oral tablet) 1 tab(s) by mouth Once a day Unchanged escitalopram (escitalopram 5 mg oral tablet) 1 tab(s) by mouth Once a day Unchanged Misc Medication (Progesterone) 200 Milligram Once a day dissolve under tounge Please take this list to your next doctor s visit. Bring all medications you take, including over the counter medications, herbals and other supplements with you to your doctor s visit. Patients and families are reminded to discard old lists and to update any records with all medication providers or retail pharmacies. Education Materials Anxiety Reaction Anxiety is the feeling we all get when we think something bad might happen. It is a normal response to stress and usually causes only a mild reaction. When anxiety becomes more severe, it can interfere with daily life. In some cases, you may not even be aware of what it is you re anxious about. There may also be a genetic link or it may be a learned behavior in the home. Both psychological and physical triggers cause stress reaction. It's often a response to fear or emotional stress, real or imagined. This stress may come from home, family, work, or social relationships. During an anxiety reaction, you may feel: Helpless Nervous Depressed Irritable Your body may show signs of anxiety in many ways. You may experience: Dry mouth Shakiness Dizziness Weakness Trouble breathing Breathing fast (hyperventilating) Chest pressure Sweating Headache Nausea Diarrhea Tiredness Inability to sleep Sexual problems Home care Try to locate the sources of stress in your life. They may not be obvious. These may include: oDaily hassles of life (such as traffic jams, missed appointments, or car troubles) oMajor life changes, both good (new baby or job promotion) and bad (loss of job or loss of loved one) oOverload: feeling that you have too many responsibilities and can't take care of all of them at once oFeeling helpless or feeling that your problems are beyond what you re able to solve Notice how your body reacts to stress. Learn to listen to your body signals. This will help you take action before the stress becomes severe. When you can, do something about the source of your stress. (Avoid hassles, limit the amount of change that happens in your life at one time and take a break when you feel overloaded). Unfortunately, many stressful situations can't be avoided. It is necessary to learn how to better manage stress. There are many proven methods that will reduce your anxiety. These include simple things like exercise, good nutrition, and adequate rest. Also, there are certain techniques that are helpful: oRelaxation oBreathing exercises oVisualization oBiofeedback oMeditation For more information about this, consult your healthcare provider or go to a local bookstore and review the many books and tapes available on this subject. Follow-up care If you feel that your anxiety is not responding to self-help measures, contact your healthcare provider or make an appointment with a counselor. You may need short-term psychological counseling and temporary medicine to help you manage stress. Call 911 Call 911 if any of these happen: Trouble breathing Confusion Drowsiness or trouble wakening Fainting or loss of consciousness Rapid heart rate Seizure New chest pain that becomes more severe, lasts longer, or spreads into your shoulder, arm, neck, jaw, or back When to seek medical advice Call your healthcare provider right away if any of these happen: Your symptoms get worse Severe headache not relieved by rest and mild pain reliever [phone] [employer]. [address] [place] [address]. All rights reserved. This information is not intended as a substitute for professional medical care. Always follow your healthcare professional's instructions. Additional Information VACCINATE! IT SAVES LIVES! Members of the community who have not yet received the COVID-19 vaccine and would like to receive it can visit one of [facility] vaccine clinics. There are many vaccine clinic locations within the [facility]. For locations and available times, please visit [email or web address] [email or web address] It is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 [place], [place] [phone] PCP - General Family Medicine 12/30/18 Vibrator Equipment Tester Relationship Specialty Start Date End Date Pratima Ontiveros CNP [address] [place], [place] [phone] PCP - General Family Medicine 12/30/18 Vibrator Equipment Tester Relationship Specialty Start Date End Date Pratima Ontiveros CNP [address] [place], [place] [phone] PCP - General Family Medicine 12/30/18 Vibrator Equipment Tester Relationship Specialty Start Date End Date Pratima Ontiveros CNP [address] [place], [place] [phone] PCP - General Family Medicine 12/30/18 Vibrator Equipment Tester Relationship Specialty Start Date End Date Pratima Ontiveros CNP [address] [place], [place] [phone] PCP - General Family Medicine 12/30/18 Vibrator Equipment Tester Relationship Specialty Start Date End Date Pratima Ontiveros CNP [address] [place], [place] [phone] PCP - General Family Medicine 12/30/18 Vibrator Equipment Tester Relationship Specialty Start Date End Date Pratima Ontiveros CNP [facility] [place] [address] PCP - General Family Medicine 12/30/18 Vibrator Equipment Tester Relationship Specialty Start Date End Date Pratima Ontiveros CNP [address] [place] [address] PCP - General Family Medicine 12/30/18 Vibrator Equipment Tester Relationship Specialty Start Date End Date Pratima Ontiveros CNP [address] [place] [phone] PCP - General Family Medicine 12/30/18 Vibrator Equipment Tester Relationship Specialty Start Date End Date Pratima Ontiveros CNP [address] [place], [place] [phone] PCP - General Family Medicine 12/30/18 Vibrator Equipment Tester Relationship Specialty Start Date End Date Pratima Ontiveros CNP [address] [place] [phone] PCP - General Family Medicine 12/30/18 Vibrator Equipment Tester Relationship Specialty Start Date End Date Pratima Ontiveros CNP [address] [place] [phone] PCP - General Family Medicine 12/30/18 Vibrator Equipment Tester Relationship Specialty Start Date End Date Pratima Ontiveros CNP [address] [place] [phone] PCP - General Family Medicine 12/30/18 Vibrator Equipment Tester Relationship Specialty Start Date End Date Pratima Ontiveros CNP [address] [place] [phone] PCP - General Family Medicine 12/30/18 Vibrator Equipment Tester Relationship Specialty Start Date End Date Pratima Ontiveros CNP [address] [place] [phone] PCP - General Family Medicine 12/30/18 Vibrator Equipment Tester Relationship Specialty Start Date End Date Pratima Ontiveros CNP [address] [place] [phone] PCP - General Family Medicine 12/30/18 Vibrator Equipment Tester Relationship Specialty Start Date End Date Pratima Ontiveros CNP [address] [place] [phone] PCP - General Family Medicine 12/30/18 Vibrator Equipment Tester Relationship Specialty Start Date End Date Pratima Ontiveros APRN.STONE BELT SANDER PCP - General Family Medicine 12/30/18 Vibrator Equipment Tester Relationship Specialty Start Date End Date Pratima Ontiveros APRN.DAVY PCP - General Family Medicine 12/30/18 Vibrator Equipment Tester Relationship Specialty Start Date End Date Pratima Ontiveros APRN.STONE BELT SANDER PCP - General Family Medicine 12/30/18 Vibrator Equipment Tester Relationship Specialty Start Date End Date Pratima Ontiveros APRN.DAVY PCP - General Family Medicine 12/30/18 Vibrator Equipment Tester Relationship Specialty Start Date End Date Pratima Ontiveros APRN.DAVY PCP - General Family Medicine 12/30/18 Vibrator Equipment Tester Relationship Specialty Start Date End Date Pratima Ontiveros, SANDER WOODEN PENCILS.STONE BELT SANDER PCP - General Family Medicine 12/30/18 Vibrator Equipment Tester Relationship Specialty Start Date End Date Pratima Ontiveros, SANDER WOODEN PENCILS.STONE BELT SANDER PCP - General Family Medicine 12/30/18 Vibrator Equipment Tester Relationship Specialty Start Date End Date Pratima Ontiveros, SANDER WOODEN PENCILS.STONE BELT SANDER PCP - General Family Medicine 12/30/18 Vibrator Equipment Tester Relationship Specialty Start Date End Date Pratima Ontiveros, SANDER WOODEN PENCILS.STONE BELT SANDER PCP - General Family Medicine 12/30/18 Vibrator Equipment Tester Relationship Specialty Start Date End Date Pratima Ontiveros, SANDER WOODEN PENCILS.STONE BELT SANDER PCP - General Family Medicine 12/30/18 Reason for Visit (unrecogniz ed section and content) Reason Comments DUB Reason Comments Can Solderer Exam Reason Onset Date Comments Refill Request 08/08/2022 Reason Comments Homicidal Pt reports intrusive homicidal thoughts. She has had recent medication changes and her provider believes the thoughts are related to med adjustment. Pt denies SI or intent to act on her thoughts. Pt was seen for same last night. Reason Comments Established Patient Follow-Up Reason Comments Follow Up Specialty Diagnoses / Procedures Referred By Pooja t Referred To Contact Psychiatry / ADULT PSYCHIATRY Diagnoses follow up 2 weeks Procedures VIDEO PSYC/PSYL EST Laurie Serra, SANDER WOODEN PENCILS.STONE BELT SANDER [address] [place] [address] Laurie Serra, SANDER WOODEN PENCILS.STONE BELT SANDER [address] [place] [address] Referral ID Status Reason Start Date Expiration Date V isits Requested Visits Authorized [id number] Pending Review 12/15/2022 03/15/2023 1 1 Reason Comments Follow Up OCD/FREDO/depression Specialty Diagnoses / Procedures Referred By Contac t Referred To Contact Psychiatry / ADULT PSYCHIATRY Diagnoses follow up 2 months Procedures EST PSYC ADULT Laurie Serra, SANDER WOODEN PENCILS.STONE BELT SANDER [address] [place] [address] Laurie Serra, SANDER WOODEN PENCILS.[facility] [address] [place] [address] Referral ID Status Reason Start Date Expiration Date V isits Requested Visits Authorized [id number] Pending Review 01/09/2023 04/09/2023 1 1 Reason Onset Date Comments Refill Request 01/14/2023 Reason Comments Medication Problem Specialty Diagnoses / Procedures Referred By Contac t Referred To Contact Psychiatry / ADULT PSYCHIATRY Diagnoses follow up Procedures VIDEO PSYC/PSYL EST Laurie Serra, SANDER WOODEN PENCILS.[facility] [address] [place] [address] Laurie Serra, SANDER WOODEN PENCILS.[facility] [address] [place] [address] Referral ID Status Reason Start Date Expiration Date V isits Requested Visits Authorized [id number] Pending Review 01/22/2023 04/22/2023 1 1 Reason Comments Yearly Exam Reason Onset Date Comments Refill Request 02/15/2023 Reason Comments Discussion Reason Comments Consult Reason Comments Irregular Menstrual Cycle Reason Comments Discussion Trying to conceive Referral ID Status Reason Start Date Expiration Date V isits Requested Visits Authorized [id number] New Request 01/25/2024 04/24/2024 1 1 Reason Comments Well Woman Specialty Diagnoses / Procedures Referred By Contac t Referred To Contact Psychiatry / ADULT PSYCHIATRY Diagnoses follow up Procedures VIDEO PSYC/PSYL EST Laurie Serra, SANDER WOODEN PENCILS.STONE BELT SANDER [address] [place] [address] Laurie Serra, SANDER WOODEN PENCILS.STONE BELT SANDER [address] [place] [address] Referral ID Status Reason Start Date Expiration Date V isits Requested Visits Authorized [id number] New Request 03/06/2024 06/04/2024 1 1 Reason Onset Date Comments Refill Request 03/11/2024 Reason Comments Vaginal Problem Urinary Problem Reason Comments Results Reason Onset Date Comments Refill Request 05/29/2024 Specialty Diagnoses / Procedures Referred By Contac t Referred To Contact Psychiatry / ADULT PSYCHIATRY Diagnoses Patient Loosing insurance at end of month and request visit Procedures VIDEO PSYC/PSYL EST Laurie Serra, SANDER WOODEN PENCILS.STONE BELT SANDER [address] [place] [address] Phone: tel: fax: Laurie Serra, SANDER WOODEN PENCILS.STONE BELT SANDER [address] [place] [address] Phone: tel: fax: Referral ID Status Reason Start Date Expiration Date V isits Requested Visits Authorized [id number] New Request 06/23/2024 09/21/2024 1 1 Reason Comments New OB/ First OB Reason Onset Date Comments Care 08/15/2024 Reason Comments US Specialty Diagnoses / Procedures Referred By Contac t Referred To Contact [facility] Diagnoses with uncertain dates in first trimester (HCC) care, first in first trimester (HCC) Procedures OBSTETRIC ULTRASOUND WHI US PREG UTERUS AFTER 1ST TRIMEST GESTATION Yasmeen Vera, SANDER WOODEN PENCILS.STONE BELT SANDER [address] [place] [address] Phone: tel: fax: [facility] [address] [address] Referral ID Status Reason Start Date Expiration Date V isits Requested Visits Authorized [id number] Closed Auto-Generate d Referral 07/18/2024 07/18/2025 1 1 Reason Onset Date Comments Care 09/10/2024 Reason Onset Date Comments Refill Request 09/22/2024 Reason Onset Date Comments Care 10/08/2024 Reason Onset Date Comments Care 10/22/2024 Reason Comments Follow Up OCD/Depression Specialty Diagnoses / Procedures Referred By Pooja mayo Referred To Contact Psychiatry / ADULT PSYCHIATRY Diagnoses reschedule from 11/04 follow up Procedures EST PSYC ADULT Laurie Serra, MELANIE.STONE BELT SANDER [address] [place] [address] Phone: tel: fax: Laurie Serra, SANDER WOODEN PENCILS.STONE [employer]T SANDER [address] [place] [address] Phone: tel: fax: Referral ID Status Reason Start Date Expiration Date V isits Requested Visits Authorized [id number] New Request 10/28/2024 01/26/2025 1 1 Reason Comments Care Reason Comments Orders Breast pump Reason Onset Date Comments Care 11/26/2024 Reason Onset Date Comments Care 12/10/2024 Care Team (unrecognized sect ion and content) Care Team Personnel Name: PRATIMA ONTIVEROS SANDER WOODEN PENCILS-STONE BELT SANDER Position: P4 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 Accredited Farm 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 Member Role: Primary Care Physician Address: Address: [address] [place] [address] Care Team Related Persons Name: CAMRON LEBRON Scheduled Active and Recently Administ ered Medications (unrecognized section and content) Medication Order 11/18/2022 11/19/2022 11/20/2022 busPIRone (Buspar) tablet 15 mg (COMPLETED) 15 mg, Oral, Once, On 11/19/22 at 2255, For 1 dose 2331 (Given - Provider: Cinthia Angulo RN) escitalopram (Lexapro) tablet 10 mg 10 mg, Oral, Once, On 11/20/22 at 0135, For 1 dose 0135 (Canceled Entry - Provider: Automatic Discharge Provider - Comment: Automatically canceled at discontinue of medication order) hydrOXYzine pamoate (Vistaril) capsule 50 mg (COMPLETED) 50 mg, Oral, Once, On 11/19/22 at 2255, For 1 dose 2332 (Given - Provider: Cinthia Angulo RN) LORazepam (Ativan) tablet 1 mg (COMPLETED) 1 mg, Oral, Once, On Sun11/20/22 at 0120, For 1 dose 0118 (Given - Provid er: Cinthia Angulo RN) FOR RECORDS PERTAINING TO PATIENTS WHO ARE OR HAVE BEEN ENROLLED IN A CHEMICAL DEPENDENCY/SUBSTANCEABUSE PROGRAM, SOME INFORMATION MAY BE OMITTED. This clinical summary was aggregated from multiple sources. Caution should be exercised in using it in the provision of clinical care. This summary normalizes information from multiple sources, and as a consequence, information in this document may materially change the coding, format and clinical context of patient data. In addition, data may be omitted in some cases. CLINICAL DECISIONS SHOULD BE BASED ON THE PRIMARY CLINICAL RECORDS. [employer] [facility]. provides no warranty or guarantee of the accuracy or completeness of information in this document.
--- OUTSIDE RECORDS SUMMARY | 2025-01-18 18:20 | XMS RPT_ITS | CCD ---
Author Organization [facility] Inform ion Partnership [facility] Care Team Providers Care Stamp Pad Maker Name Role Phone Migdalia Calderon LPN Unavailable Unavailable Migdalia Calderon LPN Unavailable Unavailable Angelique Walden NP Unavailable SYSTEM, PROVIDER NOT IN Primary Care UnavailSALOME Nayak Attending Unavail able [place] [facility] Provider LORSON TUCK POINTER[facility], [place] Primary Care Physician [place] Primary [facility] Provider [facility] Provider LUKAS DARLING Attending Unavailable [facility] Primary Care Unavailable PRINCE RAYA Attending Unavailable L[facility]SON TUCK POINTER-[facility] Unavail able VERN URBAN MD Attending Unavailable LORSON TUCK POINTER-[facility] Unavail able LORSON TUCK POINTER-TUMBLING BARREL PAINTER, [place] Attending Unavail able LORSON [facility], [facility] Unavail able Lorson [facility] Provider Margarita PORTFOLIO ACCOUNTANT, Evie Hwang Referring Unavailabl e Margarita PORTFOLIO ACCOUNTANT, Evie Hwang Attending Unavailabl e Margarita PORTFOLIO ACCOUNTANT, Evie Hwang Primary Care Unavailabl e Lorson TUCK POINTER.TUMBLING BARREL PAINTER, Offerman Primary Care Provider CAMELIA HERRERA Attending Unavailable [facility] Unavailable LAURIE SERRA Referring Unavailable [facility] Care Unavailable LAURIE SERRA Attending Unavailable CAMELIA HERRERA Attending Unavailable [facility] Care Unavailable LAURIE SERRA Referring Unavailable LAURIE SERRA Attending Unavailable [facility] Primary Care Unavailable [facility] Primary Care Unavailable PLOTLARA, HODA Attending Unavailable RAJGURU, LAURIE J Attending Unavailable RAJGURU, LAURIE J Referring Unavailable [facility] Unavailable LORSON, [place] Primary Care Unavailable PLOTTS, HODA Attending Unavailable [facility] Primary Care Unavailable JODY, YASMEEN Referring Unavailable LORSON, [place] Primary Care Unavailable JODY, YASMEEN Referring Unavailable PLOTTS, HODA Attending Un[facility] Primary Care Unavailable LORSON, [place] Primary Care Unavailable JODY, YASMEEN Attending Unavailable LORSON, [place] Primary Care Unavailable JODY, YASMEEN Referring Unavailable LORSON, [place] Primary Care Unavailable PLOTLARA, HODA Attending Unavailable CAMELIA HERRERA Attending Unavailable LORSON, [place] Primary Care Unavailable LORSON, [place] Primary Care Unavailable CAMELIA HERRERA Attending Unavailable LORSON, [place] Primary Care Unavailable CAMELIA HERRERA Attending Unavailable JODY, YASMEEN Referring Unavailable LORSON, [place] Primary Care Unavailable NAOMI, HODA Attending Unavailable RAJGURU, LAURIE J Referring Unavailable RAJGURU, LAURIE J Attending Un[facility] Primary Care Unavailable LORSON, [place] Primary Care Unavailable PLOTLARA, HODA Attending Unavailable BRENNAN HEAD Attending Unavailable [facility] Primary Care Unavailable HAURY, BRENNAN Referring Unavailable LORSON, [place] Primary Care Unavailable LORSON, [place] Primary Care Unavailable HAURY, BRENNAN Referring Unavailable TOÑA BLANKENSHIP Attending Unavailable RAJGURU, LAURIE J Referring Unavailable [facility] Primary Care Unavailable RAJGURU, LAURIE J Attending Unavailable [facility] Primary Care Unavailable BRENNAN HEAD Attending Unavailable [facility] Primary Care Unavailable JODY, YASMEEN Referring Unavailable ROBYN VAZQUEZ DO Attending Unavailable [facility] Primary Care Unavailable Allergies Allergy Classification Reported Allergen(s) Allergy Type Date of Onset Reaction(s) Facility (7 sources) amoxicillin; Translations: [amoxicillin] drug allergy 09-27-19 17 rash [facility] Work Phone: (3 sources) morphine drug allergy 09-27-19 [facility] Work Phone: (3 sources) sulfamethoxazole / trimethoprim drug allergy 09-27-19 17 [facility] Work Phone: (20 sources) Morphine; Translations: [morphine] Drug Allergy 05-02-19 23 GI Upset, Nausea (finding) [facility] (20 sources) Erythromycin; Translations: [erythromycin] Drug Allergy 05-17-19 16 [facility] (20 sources) busPIRone; Translations: [BUSPIRONE] Drug Allergy 01-30-20 23 Mental Status Change, Mental distress (finding) [facility] (20 sources) Azithromycin; Translations: [AZITHROMYCIN] Drug Allergy 10-30-19 24 Rash, Hives, GI Upset [facility] (20 sources) cefTRIAXone; Translations: [CEFTRIAXONE] Drug Allergy 01-09-20 15 Other: See Comments [facility] (20 sources) Sulfamethoxazole / Trimethoprim; Translations: [SULFAMETHOXAZOLE-T RIMETHOPRIM] Drug Allergy 09-27-19 17 Rash [facility] (1 source) ERYTHROMYCIN BASE; Translations: [ERYTHROMYCIN BASE] Propensity to adverse reactions to drug (disorder) 05-17-19 16 [facility] [place] [facility] Medications Current Medications Medication Drug Class(es) [...] XANAX 0.5 MG TAB S prn ALPRAZOLAM [id number] Migdalia Calderon LPN Comment on above: Take by mouth. Take by mouth as dir ected. aspirin 81 mg delayed release oral tablet (16 sources) Platelet Aggregation Inhibitor, Nonsteroidal Anti-inflammatory Drug Start: 07-18-2024 take 1 tablet by mouth once daily aspirin, enteric coated (ECOTRIN LOW STRENGTH) 81 mg EC tablet Indications: with uncertain dates in first trimester ([facility]) , care, first in first [...] BID, # 270 tab(s), 3 Refill(s), Pharmacy: [facility], 168.5, cm, 10/06/20 7:31:00 EDT, [...] once daily. Take 2 tablets by mo [facility] once daily. hydrOXYzine hydrochloride 25 mg oral [...] 19 ORAL) Take by mouth once daily. Reinerton Stork Active Saccharomyces boulardii (20 sources) Start: [...] 20 MG TABS q d CITALOPRAM HYDROBROMIDE [id number] Angelique Walden PORTFOLIO ACCOUNTANT CELEXA TABS q d CITALOPRAM HYDROBROMIDE TABS [id number] Migdalia Calderon LPN compounded progesterone 100 mg [...] 1 capsule by mouth once daily PNV 032-dvnu-avuprb-dha 90 mg iron- 1 mg-200 mg cap Indications: Irregular menstrual cycle Take 1 capsule by mouth once daily. 30 capsule 3 08/24/2022 06/22/2023 Discontinued (Course of therapy completed) Start: 08-24-2022 take 1 capsule by mo uth once daily PNV 971-udnj-rwxdba-dha 90 mg iron- 1 mg-200 mg cap [...] Take 200 mg by mouth once daily. 533-crqs-apaca-omega3 (ONE-A-DAY -1) 27 mg iron- 800 mcg-235 mg cap (6 sources) Start: 04-02-2022 End: 11-06-2023 249-dbwu-szary-omega3 (ONE-A-DAY -1) 27 mg iron- 800 mcg-235 mg cap Start: 04-02-2022 168-i osd-nuofp-nguay2 (ONE-A-DAY -1) 27 mg iron- 800 mcg-235 mg cap vit 30-zgex-tuvqy-dha (PRENATE MINI, FERR ASP GLYCIN,) 18-1-350 mg cap (5 sources) Start: 05-02-2022 take 1 capsule by mouth once daily vit 39-puqs-upspz-dha (PRENATE MINI, FERR ASP GLYCIN,) 18-1-350 mg [...] current use of drug therapy; Translations: [Other mcc (current) drug therapy] 10-18-2023 Episodic Other complications [...] 07-18-2024 Episodic Other aftercare (1 source) Other regulatory affairs spec (current) drug therapy; Translations: [Encounter for long-term [...] of ; Translations: [16 weeks gestation of ([facility])] Onset: 09-10-2024 Episodic Residual codes; unclassified (1 source) 8 weeks gestation of ; Translations: [8 weeks gestation of ([facility])] Onset: 07-18-2024 Episodic Residual codes; unclassified (1 source) Decreased libido; Translations: [Decreased libido without sexual dysfunction] Onset: 01-25-2024 Episodic Results Test Name Value Interpretation Reference Range Facility Pablo 01-10-2025 Cotinine Lvl <1.0 [facility] Comment on above: Result Comment: This test was developed and its performance characteristics determined by [employer]. It has not been cleared or approved by the Food and Drug Administration. Cotinine levels greater than 20.0 are consistent with the use of tobacco or tobacco cessation products. Performed At: [facility] [address], [place] [id number] Dheeraj Campbell MD Ph:[phone] Performed By: #### 0 [id number] #### [facility] [address] [place], [place] [address] Nicotine Lvl <1.0 [facility] Comment on above: Result Comment: This test was developed and its performance characteristics determined by [employer]. It has not been cleared or approved by the Food and Drug Administration. Nicotine levels greater than 2.0 are consistent with the use of tobacco or tobacco cessation products. Performed By: #### 0 [id number] #### [facility] [address] [address] CNOVon 01-07-2025 CNOV Office Visit (OBGYWM) -------- SMITA NGUYEN ([id number]) 1995 F Date Time Provider Department 01/07/25 2:30 PM NST ROOM [facility] During your visit today, we recorded the following information about you: Blood pressure Weight 116/71 89.4 kg Hoda Hager APRN.NO 01/07/2025 3:23 PM Signed S: Smita Nguyen is a 29 year old female who presents at 33 weeks gestation for centering/routine visit. Decreased movements since last night. Placed on NST. NST reactive. No contractions. C/O increased anxiety and started taking [place] supplements- 1250 mg per psych. TUCK POINTER recommendation. Denies headache, visual changes, chest pain, [...] 01/07/2025 2:12 PM Signed SEQUENTIAL SCREENINGS [facility] offers sequential screenings for women who [...] It will require an appointment with our manufacturing test technician. This is not an ultrasound performed [...] the above symptoms, contact our office at [phone] and ask to speak with a nurse. After hours, you can call doctors registry at [phone] OR call [facility] at [phone] and ask to have the doctor water conservation specialist paged. If you consider this an emergency, dial 9-1-0 or go to your nearest emergency department. NEED HELP? Are you dealing with a violent or abusive relationship? Are you a victim of rape or sexual assult? Call [facility] ([place]) 24 hour Crisis Hotline: 333.554.2033 or 880-882-5875. MANUAL Your Guide to a Healthy manual is now on-line. Visit [email or web address] /HealthyPregnancy Guide to download your free [...] [Z34.00] Other Visit Diagnoses:33 weeks gestation of ([facility]) [Z3A.33] History of depression [Z86.59] History of anxiety [Z86.59] Decreased movements in third trimester, single or unspecified fetus ([facility]) [O36.8130] Prescriptions as of 01/07/2025 [...] 19 ORAL) Take by mouth once daily. Reinerton Stork - SACCHAROMYCES BOULARDII ORAL - INOSITOL ORAL - cholecalciferol, vitamin D3, (VITAMIN D3 ORAL) - MAGNESIUM GLYCINATE, BULK, MISC Problem List As Of Date (more content not included)... Normal [facility] LABORATORYOrdered By: [place] P CONTRIBUTOR_SYSTEM on 01-06-2025 Cotinine Lvl (LC) ng/mL Invalid Interpretation Code AO Sendouts SS Comment on above: Result Comment: This test was developed and its performance characteristics determined by [facility]. It has not been cleared or approved by the Food and Drug Administration. Cotinine levels greater than 20.0 are consistent with the use of tobacco or tobacco cessation products. Performed At: [address] [id number] Dheeraj Campbell MD Ph:[phone] Nicotine Lvl (LC) ng/mL Invalid Interpretation Code AO Sendouts SS Comment on above: Result Comment: This test was developed and its performance characteristics determined by [facility]. It has not been cleared or approved by the Food and Drug Administration. Nicotine levels greater than 2.0 are consistent with the use of tobacco or tobacco cessation products. CNOVon 12-24-2024 CNOV Office Visit (OBGYWM) -------- SMITA NGUYEN ([id number]) 1995 F Date Time Provider Department 12/24/24 [...] to call - RTO 2 weeks Hoda Hagre APRN.CNM Allergies As of Date: 12/24/2024 Noted [...] 19 ORAL) Take by mouth once daily. Reinerton Stork - SACCHAROMYCES BOULARDII ORAL - INOSITOL ORAL - cholecalciferol, vitamin D3, (VITAMIN D3 ORAL) - MAGNESIUM GLYCINATE, BULK, MISC Problem List As Of Date 12/24/2024 Noted Resolved TMJ (temporomandibular joint syndrome) [M26.609] 9 Supervision of normal first , antepart* 5 History of Lyme disease [Z86.19] 08/15/2024 Depression [F32.A] History of anxiety [Z86.59] 12/10/2024 Encounter Status:Closed by HODA HAGER on 12/24/[address] [facility] Mary 12-10-2024 CNOV Office Visit (OBGYWM) -------- WENDYCARLOSSMITA ([id number]) 1995 F Date Time Provider Department 12/10/24 [...] 12/10/2024 2:36 PM Signed SEQUENTIAL SCREENINGS [facility] offers sequential screenings for women who [...] It will require an appointment with our manufacturing test technician. This is not an ultrasound performed [...] the above symptoms, contact our office at [phone] and ask to speak with a nurse. After hours, you can call doctors registry at [phone] OR call [facility] at [phone] and ask to have the doctor water conservation specialist paged. If you consider this an emergency, dial 9--1 or go to your nearest emergency department. NEED HELP? Are you dealing with a violent or abusive relationship? Are you a victim of rape or sexual assult? Call [facility] ([place]) 24 hour Crisis Hotline: 826.237.6476 or 883-481-0986. MANUAL Your Guide to a Healthy manual is now on-line. Visit [email or web address].or alonso/HealthyPregnancy Guide to download your free [...] [Z34.00] Other Visit Diagnoses:29 weeks gestation of ([facility]) [Z3A.29] History of depression [Z86.59] History of anxiety [Z86.59] Prescriptions as of 12/10/2024 - escitalopram oxalate (LEXAPRO) 20 mg tablet Take 1.5 tablets by mouth once daily. - aspirin, enteric coated (ECOTRIN LOW STRENGTH) 81 mg EC tablet Take 1 tablet by mouth once daily. - no115/iron/folic acid ( 19 ORAL) Take by mouth once daily. Reinerton Stork - SACCHAROMYCES BOULARDII ORAL - INOSITOL ORAL - cholecalciferol, vitamin D3, (VITAMIN D3 ORAL) - MAGNESIUM GLYCINATE, BULK, MISC Problem List As Of Date 12/10/2024 Noted Resolved TMJ (temporomandibular joint syndrome) [M26.609] 9 Supervision of normal first , antepart* 5 History of Lyme disease [Z86.19] 08/15/2024 Depression [F32.A] History of anxiety [Z86.59] 12/10/2024 Other instructions from your clinician: SEQUENTIAL SCREENINGS [facility] offers sequential screenings for women who [...] are drawn (more content not included)... Normal [facility] CBC W Auto Differential pane l (Bld)on 11-26-2024 Basophils (Bld) [#/Vol] 0.06 10*3/uL Normal <0.11 [facility] Comment on above: Order Comment: Speci men Type: BLOOD SPECIMEN Ordering Facility: [facility] Address: [address] [place] [address] Performed By: #### 5 7021-8 #### [facility] CLIA [id number] [address] [place] [address] [place] Basophils/100 WBC (Bld) 0.6 % Normal [facility] Comment on above: Order Comment: Speci men Type: BLOOD SPECIMEN Ordering Facility: [facility] Address: [address] [place] [address] Performed By: #### 5 7021-8 #### [facility] CLIA [id number] [address] [place] [address] [place] Differential cell count method Nom (Bld) Auto Normal [facility] Comment on above: Order Comment: Speci men Type: BLOOD SPECIMEN Ordering Facility: [facility] Address: [address] [place] [address] Performed By: #### 5 7021-8 #### [facility] CLIA [id number] [address] [place] [address] [place] Eosinophils (Bld) [#/Vol] 0.08 10*3/uL Normal <0.46 [facility] Comment on above: Order Comment: Speci men Type: BLOOD SPECIMEN Ordering Facility: [facility] Address: [address] [place] [address] Performed By: #### 5 7021-8 #### [facility] CLIA [id number] [address] [place] [address] [place] Eosinophils/100 WBC (Bld) 0.8 % Normal [facility] Comment on above: Order Comment: Speci men Type: BLOOD SPECIMEN Ordering Facility: [facility] Address: [address] [place] [address] Performed By: #### 5 7021-8 #### [facility] CLIA [id number] [address] [place] [address] [place] Erythrocyte distribution width (RBC) [Ratio] 12.6 % Normal 11.5-15.0 [facility] Comment on above: Order Comment: Speci men Type: BLOOD SPECIMEN Ordering Facility: [facility] Address: [address] [place] [address] Performed By: #### 5 7021-8 #### [facility] CLIA [id number] [address] [place] [address] [place] Hematocrit (Bld) [Volume fraction] 33.9 % Low 36.0-46.0 [facility] Comment on above: Order Comment: Speci men Type: BLOOD SPECIMEN Ordering Facility: [facility] Address: [address] [place] [address] Performed By: #### 5 7021-8 #### [facility] CLIA [id number] [address] [place] [address] [place] Hemoglobin (Bld) [Mass/Vol] 11.8 g/dL Normal 11.5-15.5 [facility] Comment on above: Order Comment: Speci men Type: BLOOD SPECIMEN Ordering Facility: [facility] Address: [address] [place] [address] Performed By: #### 5 7021-8 #### [facility] CLIA [id number] [address] [place] [address] [place] Immature granulocytes (Bld) [#/Vol] 0.12 10*3/uL High <0.10 [facility] Comment on above: Order Comment: Speci men Type: BLOOD SPECIMEN Ordering Facility: [facility] Address: [address] [place] [address] Performed By: #### 5 7021-8 #### [facility] CLIA [id number] [address] [place] [address] [place] Immature granulocytes/100 WBC (Bld) 1.2 % Normal [facility] Comment on above: Order Comment: Speci men Type: BLOOD SPECIMEN Ordering Facility: [facility] Address: [address] [place] [address] Performed By: #### 5 7021-8 #### [id number] [address] [place] [address] [place] Lymphocytes (Bld) [#/Vol] 2.03 10*3/uL Normal 1.00-4.00 [facility] Comment on above: Order Comment: Speci men Type: BLOOD SPECIMEN Ordering Facility: [facility] Address: [address] [place] [address] Performed By: #### 5 7021-8 #### [facility] [id number] [address] [place] [address] [place] Lymphocytes/100 WBC (Bld) 20.2 % Normal [facility] Comment on above: Order Comment: Speci men Type: BLOOD SPECIMEN Ordering Facility: [facility] Address: [address] [place] [address] Performed By: #### 5 7021-8 #### [facility] [id number] [address] [place] [address] [place] MCH (RBC) [Entitic mass] 32.0 pg Normal 26.0-34.0 [facility] Comment on above: Order Comment: Speci men Type: BLOOD SPECIMEN Ordering Facility: [facility] Address: [address] [place] [address] Performed By: #### 5 7021-8 #### [facility] CLIA [id number] [address] [place] [address] [place] MCHC (RBC) [Mass/Vol] 34.8 g/dL Normal 30.5-36.0 [facility] Comment on above: Order Comment: Speci men Type: BLOOD SPECIMEN Ordering Facility: [facility] Address: [address] [place] [address] Performed By: #### 5 7021-8 #### [facility] CLIA [id number] [address] [place] [address] [place] MCV (RBC) [Entitic vol] 91.9 fL Normal 80.0-100.0 [facility] Comment on above: Order Comment: Speci men Type: BLOOD SPECIMEN Ordering Facility: [facility] Address: [address] [place] [address] Performed By: #### 5 7021-8 #### [facility] CLIA [id number] [address] [place] [address] [place] Monocytes (Bld) [#/Vol] 0.74 10*3/uL Normal <0.87 [facility] Comment on above: Order Comment: Speci men Type: BLOOD SPECIMEN Ordering Facility: [facility] Address: [address] [place] [address] Performed By: #### 5 7021-8 #### [facility] CLIA [id number] [address] [place] [address] [place] Monocytes/100 WBC (Bld) 7.3 % Normal [facility] Comment on above: Order Comment: Speci men Type: BLOOD SPECIMEN Ordering Facility: [facility] Address: [address] [place] [address] Performed By: #### 5 7021-8 #### [facility] CLIA [id number] [address] [place] [address] [place] Neutrophils (Bld) [#/Vol] 7.04 10*3/uL Normal 1.45-7.50 [facility] Comment on above: Order Comment: Speci men Type: BLOOD SPECIMEN Ordering Facility: [facility] Address: [address] [place] [address] Performed By: #### 5 7021-8 #### [facility] CLIA [id number] [address] [place] [address] [place] Neutrophils/100 WBC (Bld) 69.9 % Normal [facility] Comment on above: Order Comment: Speci men Type: BLOOD SPECIMEN Ordering Facility: [facility] Address: [address] [place] [address] Performed By: #### 5 7021-8 #### [facility] [id number] [address] [place] [address] [place] Nucleated RBC (Bld) [#/Vol] 10*3/uL Normal <0.01 [facility] Comment on above: Order Comment: Speci men Type: BLOOD SPECIMEN Ordering Facility: [facility] Address: [address] [place] [address] Performed By: #### 5 7021-8 #### [facility] [id number] [address] [place] [address] [place] Nucleated RBC/100 WBC (Bld) [Ratio] 0.0 /[address] [facility] Comment on above: Order Comment: Speci men Type: BLOOD SPECIMEN Ordering Facility: [facility] Address: [address] [place] [address] Performed By: #### 5 7021-8 #### [id number] [address] [place] [address] [place] Platelet mean volume (Bld) [Entitic vol] 10.7 fL Normal 9.0-12.7 [facility] Comment on above: Order Comment: Speci men Type: BLOOD SPECIMEN Ordering Facility: [facility] Address: [address] [place] [address] [place] [address] Performed By: #### 5 7021-8 #### [facility] CLIA [id number] [address] [place] [address] [place] Platelets (Bld) [#/Vol] 219 10*3/uL Normal 150-400 [facility] Comment on above: Order Comment: Speci men Type: BLOOD SPECIMEN Ordering Facility: [facility] Address: [address] [place], [place] [address] Performed By: #### 5 7021-8 #### [facility] CLIA [id number] [address] [place] [address] [place] RBC (Bld) [#/Vol] 3.69 10*6/uL Low 3.90-5.20 [facility] Comment on above: Order Comment: Speci men Type: BLOOD SPECIMEN Ordering Facility: [facility] Address: [address] [place], [place] [address] Performed By: #### 5 7021-8 #### [facility] CLIA [id number] [address] [place] [address] [place] WBC (Bld) [#/Vol] 10.07 10*3/uL Normal 3.70-11.00 [facility] Comment on above: Order Comment: Speci men Type: BLOOD SPECIMEN Ordering Facility: [facility] Address: [address] [place] [address] Performed By: #### 5 7021-8 #### [facility] CLIA [id number] [address] [place] [address] [place] [facility] CNOVon 11-26-2024 CNOV Office Visit (OBGYWM) -------- SMITA NGUYEN ([id number]) 1995 F Date Time Provider Department 11/26/24 [...] complaints. Leaving for vacation next week in [place]. O: See flow sheet Gen: No apparent distress Abd: Gravid, nontender ASSESSMENT/PLAN: 1. 27 weeks gestation of 2. Supervision of normal first , antepartum 3. Other depression 4. History of depression - Continue Lexapro 20 mg PO Daily - Continue vitamin and ASA - Traveling via plane to [place] next week- wearing compression stockings and increase [...] 11/26/2024 2:38 PM Signed SEQUENTIAL SCREENINGS [facility] offers sequential screenings for women who [...] It will require an appointment with our manufacturing test technician. This is not an ultrasound performed [...] the above symptoms, contact our office at [phone] and ask to speak with a nurse. After hours, you can call doctors registry at [phone] OR call [facility] at [phone] and ask to have the doctor water conservation specialist paged. If you consider this an emergency, dial 7-4-1 or go to your nearest emergency department. NEED HELP? Are you dealing with a violent or abusive relationship? Are you a victim of rape or sexual assult? Call [facility] ([place]) 24 hour Crisis Hotline: 877.546.7414 or 946-133-5223. MANUAL Your Guide to a Healthy manual is now on-line. Visit [email or web address] g/HealthyPregnancy Guide to download your free [...] 19 ORAL) Take by mouth once daily. Reinerton Stork - SACCHAROMYCES BOULARDII ORAL - INOSITOL ORAL - cholecalciferol, vitamin D3, (VITAMIN D3 ORAL) - MAGNESIUM GLYCINATE, BULK, MISC Problem List As Of Date 11/26/2024 Noted Resolved TMJ (temporomandibular joint syndrome) [M26.609] 9 Supervision of normal first , antepart* 5 History of Lyme disease [Z86.19] 08/15/2024 Depression [F32.A] Other instructions from your clinician: SEQUENTIAL SCREENINGS [facility] off (more content not included)... Normal [facility] GESTATIONAL GLUCOSE SCREEN, 1-HOUR, 50 GRAM, NON-FASTINGon 11-26-2024 Glucose [Mass/Vol] 92 mg/dL Normal 74-134 [facility] Comment on above: Order Comment: Speci stephy Type: BLOOD SPECIMENOrdering Facility: [facility] Address: [address] [place] [address] Result Comment: [facility] Congress of Obstetricians and Gynecologists (Rock/Corey) guidelines state a gestational diabetes mellitus positive screen is made, in women not previously diagnosed with overt diabetes, when the 1 hr plasma glucose level is equal to or above 140 mg/dL. [facility] Construction Project Manager and Women's Health Fellows recommends a 135 mg/dL cutoff. Performed By: #### G LTGST ####[facility] [id number] [place] [address] [place] Reagin and Treponema pallidu m IgG and IgM [Interp]on 11-26-2024 T. pallidum IgG+IgM IA Ql (S) Non-Reactive Normal Nonreactive [facility] Comment on above: Order Comment: Nicole keyes Type: SWAB Ordering Facility: [facility] Address: [address] [place] [address] Performed By: #### T RVAMP, 21053-3 #### [facility] CLIA [id number] [address] [place], [place] [id number] [place] Reagin+T pallidum IgG+IgM Se rPl-Impon 11-26-2024 Reagin and Treponema pallidum IgG and IgM [Interp] Cannot exclude recent Treponemal infection if specimen collected within 7-10 days after appearance of suspect lesions or 2-3 weeks after an exposure. Clinical correlation is required. Normal [facility] Comment on above: Order Comment: Speci men Type: SWAB Ordering Facility: [facility] Address: [address] [place] [address] Performed By: #### T RVAMP, 64096-8 #### [facility] CLIA [id number] [address] [place] [address] [place] CNPJackeline 11-20-2024 CNPN Telephone (OBGYWM) -------- SMITA NGUYEN ([id number]) 1995 F Date Time Provider Department 11/20/24 CAMELIA HERRERA During your visit today, we recorded the following information about you: Glendy Castaneda LPN 11/20/2024 5:17 PM Signed Breast pump prescription received from [facility]. Order to Mario Alberto Herrera to sign [...] 19 ORAL) Take by mouth once daily. Reinerton Stork - SACCHAROMYCES BOULARDII ORAL - INOSITOL ORAL - cholecalciferol, vitamin D3, (VITAMIN D3 ORAL) - MAGNESIUM GLYCINATE, BULK, MISC Problem List As Of Date 11/20/2024 Noted Resolved TMJ (temporomandibular joint syndrome) [M26.609] 9 Supervision of normal first , antepart* History of Lyme disease [Z86.19] 08/15/2024 Depression [F32.A] Encounter Status:Closed by MORA VILLARREAL on 11/24/24 [facility] CNOVon 11-12-2024 CNOV Office Visit (OBGYWM) -------- SMITA NGUYEN ([id number]) 1995 F Date Time Provider Department 11/12/24 [...] [Z34.00] Other Visit Diagnoses:25 weeks gestation of ([facility]) [Z3A.25] Other depression [F32.89] Prescriptions as of 11/12/2024 - escitalopram oxalate (LEXAPRO) 20 mg tablet Take 1.5 tablets by mouth once daily. - aspirin, enteric coated (ECOTRIN LOW STRENGTH) 81 mg EC tablet Take 1 tablet by mouth once daily. - no115/iron/folic acid ( 19 ORAL) Take by mouth once daily. Reinerton Van - LEVAR JOSEFRANCOISRAYMONDGabriella ORAL - INOSITOL [...] Encounter Status:Closed by CAMELIA HERRERA on 11/12/24 [facility] CNOVon 10-28-2024 CNOV Office Visit (PSWSTR) -------- SMITA NGUYEN ([id number]) 1995 F Date Time Provider Department 10/28/24 11:30 AM LAURIE SERRA PSWSTR During your visit today, we recorded the following information about you: Pulse Blood pressure Weight 70/minute 113/66 81.2 kg Laurie Serra, TUCK POINTER.TUMBLING BARREL PAINTER 10/28/2024 11:01 PM Signed FOLLOW UP - PSYCHIATRIC PROGRESS NOTE Visit Type:In person Recording using ambient CompBlue software for draft documentation of the visit was discussed with the patient/authorized senior account representative; all questions welcomed and answered. Patient/authorized senior account representative agreed to proceed CC: Outpatient follow-up [...] due to recommendations from her midwives at [facility]. She has not needed to use hydroxyzine or Ativan recently but keeps Ativan as a safety net, carrying 1-2 pills with her and keeping the rest at home. She is planning a water at [facility] and is open to alternative delivery methods [...] when she learned of her brother and jrckyu-jj-adg's , but she became herself in May, [...] 19 ORAL) Take by mouth once daily. Reinerton Stork SACCHAROMYCES BOULARDII ORAL INOSITOL ORAL cholecalciferol, [...] Demeanor: Appropria (more content not included)... Normal [facility] CNOVon 10-22-2024 CNOV Office Visit (OBGYWM) -------- SMITA NGUYEN ([id number]) 1995 F Date Time Provider Department 10/22/24 [...] 10/22/2024 2:35 PM Signed SEQUENTIAL SCREENINGS [facility] offers sequential screenings for women who [...] It will require an appointment with our manufacturing test technician. This is not an ultrasound performed [...] the above symptoms, contact our office at [phone] and ask to speak with a nurse. After hours, you can call doctors registry at [phone] OR call [facility] at [phone] and ask to have the doctor water conservation specialist paged. If you consider this an emergency, dial 9-4-6 or go to your nearest emergency department. NEED HELP? Are you dealing with a violent or abusive relationship? Are you a victim of rape or sexual assult? Call [facility] ([place]) 24 hour Crisis Hotline: 821.629.1879 or 926-897-2726. MANUAL Your Guide to a Healthy manual is now on-line. Visit [email or web address] /HealthyPregnancy Guide to download your free [...] 19 ORAL) Take by mouth once daily. Reinerton Van - LEVAR CLARENCE ORAL - INOSITOL ORAL - cholecalciferol, vitamin D3, (VITAMIN D3 ORAL) - MAGNESIUM GLYCINATE, BULK, MISC Problem List As Of Date 10/22/2024 Noted Resolved TMJ (temporomandibular joint syndrome) [M26.609] 9 Supervision of normal first , antepart* 5 History of Lyme disease [Z86.19] 08/15/2024 Depression [F32.A] Other instructions from your clinician: SEQUENTIAL SCREENINGS [facility] offers sequential screenings for women who are interested in screenings for chromosomal abnormalities and certain defects during a . The sequential screen combines ultrasound and blood tests to determine the risk of chromosomal abnormalities, including Down's Syndrome (Trisomy 21) and Trisomy 18, as well as open neural tube defe (more content not included)... Normal [facility] Examination level ultrasound on 10-08-2024 Indication Standard [...] 11 oz EFW by: Hadlock (HC-AC-FL) Extended Flaker Operator 7.0 mm CM 3.9 mm 15% Nicolaides [...] normal LVOT view: normal 3-vessel view: normal 6-cjidia-isyzmsy view: normal Heart / Thorax Situs: situs [...] Read By: Dionne Pearson M.D. MATERNAL MEDICINE [facility] Radiology Study observation (narrative) [facility] CARRIER SCREEN, STANDARDon 0 08-15-2024 CARRIER SCREEN RESULTS View results in Scanned Documents link when available. Normal [facility] Comment on above: Order Comment: Speci men Type: BLOOD SPECIMENOrdering Facility: [facility] Address: [address] [place] [address] Performed By: #### C RRSCN ####MYRIADCLIA [id number] [place] [address] CBC W Auto Differential pane l (Bld)on 08-15-2024 Basophils (Bld) [#/Vol] 0.04 10*3/uL Normal <0.11 [facility] Comment on above: Order Comment: Speci men Type: BLOOD SPECIMENOrdering Facility: [facility] Address: [address] [place] [address] Performed By: #### 5 7021-8 ####[facility] MILLWNCLIA [id number] [place] [address] [place] Basophils/100 WBC (Bld) 0.4 % Normal [facility] Comment on above: Order Comment: Speci men Type: BLOOD SPECIMENOrdering Facility: [facility] Address: [address] [place] [address] Performed By: #### 5 7021-8 ####[facility] [id number] [place] [address] [place] Differential cell count method Nom (Bld) Auto Normal [facility] Comment on above: Order Comment: Speci men Type: BLOOD SPECIMENOrdering Facility: [facility] Address: [address] [place] [address] Performed By: #### 5 7021-8 ####[facility] [id number] [place] [address] [place] Eosinophils (Bld) [#/Vol] 0.07 10*3/uL Normal <0.46 [facility] Comment on above: Order Comment: Speci men Type: BLOOD SPECIMENOrdering Facility: [facility] Address: [address] [place] [address] Performed By: #### 5 7021-8 ####[facility] [id number] [address] [place] Eosinophils/100 WBC (Bld) 0.7 % Normal [facility] Comment on above: Order Comment: Speci men Type: BLOOD SPECIMENOrdering Facility: [facility] Address: [address] [place] [address] Performed By: #### 5 7021-8 ####[facility] [id number] [place] [address] [place] Erythrocyte distribution width (RBC) [Ratio] 12.4 % Normal 11.5-15.0 [facility] Comment on above: Order Comment: Speci men Type: BLOOD SPECIMENOrdering Facility: [facility] Address: [address] [place] [address] Performed By: #### 5 7021-8 ####[facility] [id number] [place] [address] [place] Hematocrit (Bld) [Volume fraction] 37.2 % Normal 36.0-46.0 [facility] Comment on above: Order Comment: Speci men Type: BLOOD SPECIMENOrdering Facility: [facility] Address: [address] [place] [address] Performed By: #### 5 7021-8 ####[facility] [id number] [place] [address] [place] Hemoglobin (Bld) [Mass/Vol] 13.1 g/dL Normal 11.5-15.5 [facility] Comment on above: Order Comment: Speci men Type: BLOOD SPECIMENOrdering Facility: [facility] Address: [address] [place] [address] Performed By: #### 5 7021-8 ####[facility] [id number] [place] [address] [place] Immature granulocytes (Bld) [#/Vol] 0.05 10*3/uL Normal <0.10 [facility] Comment on above: Order Comment: Speci men Type: BLOOD SPECIMENOrdering Facility: [facility] Address: [address] [place] [address] Performed By: #### 5 7021-8 ####[facility] [id number] [place] [address] [place] Immature granulocytes/100 WBC (Bld) 0.5 % Normal [facility] Comment on above: Order Comment: Speci men Type: BLOOD SPECIMENOrdering Facility: [facility] Address: [address] [place] [address] Performed By: #### 5 7021-8 ####[facility] [id number] [place] [address] [place] Lymphocytes (Bld) [#/Vol] 2.32 10*3/uL Normal 1.00-4.00 [facility] Comment on above: Order Comment: Speci men Type: BLOOD SPECIMENOrdering Facility: [facility] Address: [address] [place] [address] Performed By: #### 5 7021-8 ####[facility] [id number] [place] [address] [place] Lymphocytes/100 WBC (Bld) 24.8 % Normal [facility] Comment on above: Order Comment: Speci men Type: BLOOD SPECIMENOrdering Facility: [facility] Address: [address] [place] [address] Performed By: #### 5 7021-8 ####[facility] [id number] [place] [address] [place] MCH (RBC) [Entitic mass] 31.4 pg Normal 26.0-34.0 [facility] Comment on above: Order Comment: Speci men Type: BLOOD SPECIMENOrdering Facility: [facility] Address: [address] [place] [address] Performed By: #### 5 7021-8 ####[facility] CLINIC[facility] [id number] [place] [address] [place] MCHC (RBC) [Mass/Vol] 35.2 g/dL Normal 30.5-36.0 [facility] Comment on above: Order Comment: Speci men Type: BLOOD SPECIMENOrdering Facility: [facility] Address: [address] [place] [address] Performed By: #### 5 7021-8 ####[facility] SYSTEM[facility]CLIA [id number] [place] [address] [place] MCV (RBC) [Entitic vol] 89.2 fL Normal 80.0-100.0 [facility] Comment on above: Order Comment: Speci men Type: BLOOD SPECIMENOrdering Facility: [facility] Address: [address] [place] [address] Performed By: #### 5 7021-8 ####[facility] SYSTEMCORINEA [id number] [place] [address] [place] Monocytes (Bld) [#/Vol] 0.55 10*3/uL Normal <0.87 [facility] Comment on above: Order Comment: Speci men Type: BLOOD SPECIMENOrdering Facility: [facility] Address: [address] [place] [address] Performed By: #### 5 7021-8 ####[facility] [id number] [place] [address] [place] Monocytes/100 WBC (Bld) 5.9 % Normal [facility] Comment on above: Order Comment: Speci men Type: BLOOD SPECIMENOrdering Facility: [facility] Address: [address] [place] [address] Performed By: #### 5 7021-8 ####[facility] [id number] [place] [address] [place] Neutrophils (Bld) [#/Vol] 6.31 10*3/uL Normal 1.45-7.50 [facility] Comment on above: Order Comment: Speci men Type: BLOOD SPECIMENOrdering Facility: [facility] Address: [address] [place] [address] Performed By: #### 5 7021-8 ####[facility] SYSTEM[facility]CLIA [id number] [place] [address] [place] Neutrophils/100 WBC (Bld) 67.7 % Normal [facility] Comment on above: Order Comment: Speci men Type: BLOOD SPECIMENOrdering Facility: [facility] Address: [address] [place] [address] Performed By: #### 5 7021-8 ####[facility] [id number] [place] [address] [place] Nucleated RBC (Bld) [#/Vol] 10*3/uL Normal <0.01 [facility] Comment on above: Order Comment: Speci men Type: BLOOD SPECIMENOrdering Facility: [facility] Address: [address] [place] [address] Performed By: #### 5 7021-8 ####[facility] [id number] [place] [address] [place] Nucleated RBC/100 WBC (Bld) [Ratio] 0.0 /[address] [facility] Comment on above: Order Comment: Speci men Type: BLOOD SPECIMENOrdering Facility: [facility] Address: [address] [place] [address] Performed By: #### 5 7021-8 ####[facility] [id number] [place] [address] [place] Platelet mean volume (Bld) [Entitic vol] 10.5 fL Normal 9.0-12.7 [facility] Comment on above: Order Comment: Speci men Type: BLOOD SPECIMENOrdering Facility: [facility] Address: [address] [place] [address] Performed By: #### 5 7021-8 ####[facility] [id number] [place] [address] [place] Platelets (Bld) [#/Vol] 264 10*3/uL Normal 150-400 [facility] Comment on above: Order Comment: Speci men Type: BLOOD SPECIMENOrdering Facility: [facility] Address: [facility] [place], [place] [address] Performed By: #### 5 7021-8 ####[facility] GLENN OSMINDOMINGUEZ [id number] [place] [address] [place] RBC (Bld) [#/Vol] 4.17 10*6/uL Normal 3.90-5.20 [facility] Comment on above: Order Comment: Speci men Type: BLOOD SPECIMENOrdering Facility: [facility] Address: [address] [place], [place] [address] Performed By: #### 5 7021-8 ####[facility] OSMINDOMINGUEZ [id number] [address] [place] WBC (Bld) [#/Vol] 9.34 10*3/uL Normal 3.70-11.00 [facility] Comment on above: Order Comment: Speci men Type: BLOOD SPECIMENOrdering Facility: [facility] Address: [address] [place] [address] Performed By: #### 5 7021-8 ####[facility] LUISASHLANDCORINEA [id number] [address] [place] Examination level ultrasound on 08-15-2024 Indication First trimester anatomic survey Impression The patient is referred for a first trimester anatomy scan including nuchal translucency measurement as clinically indicated. - Single, live, intrauterine . - Lodge rump length measurement is consistent with the [...] view: visualized 4-chamber view with color: visualized 9-qmrsdo-sbrheac view: normal Abdominal cord insertion: normal Stomach: [...] Read By: Dionne Pearson M.D. MATERNAL MEDICINE [facility] Radiology Study observation (narrative) [facility] HBV surface Ag Ser Qlon 07-31 HBV surface Ag Ql (S) Negative Normal Negative [facility] Comment on above: Order Comment: Speci men Type: BLOOD SPECIMENOrdering Facility: [facility] Address: [address] [place] [address] Performed By: #### 5 195-3, 53165-3, 95959-2 ####[facility] LABCLIA [id number] [place] [address] [place] HCV Ab Ser Qlon 08-15-2024 HCV Ab Ql (S) Negative Normal Negative [facility] Comment on above: Order Comment: Speci men Type: SWAB [facility]: [facility] Address: [address] [place] [address] Result Comment: The result suggests no evidence of infection with Hepatitis C virus. Should recent infection be suspected, repeat testing may be considered 4-6 weeks after this draw. Performed By: #### T RVAMP, 86022-3 #### [facility] CLIA [id number] [address] [place] [address] [place] HIV 1+2 Ab IA Qlon HIV 1 and 2 Ab IA.rapid Nom (S/P/Bld) Normal [facility] Comment on above: Order Comment: Speci men Type: BLOOD SPECIMENOrdering Facility: [facility] Address: [address] [place] [address] Result Comment: Test not indicated. Performed By: #### 5 195-3, 21805-8, 31277-9 ####[facility] LABCLIA [id number] [place] [address] [place] HIV 1+2 Ab+HIV1 p24 Ag IA Ql Non-Reactive Normal Nonreactive [facility] Comment on above: Order Comment: Speci men Type: BLOOD SPECIMENOrdering Facility: [facility] Address: [address] [place] [address] Performed By: #### 5 195-3, 69457-5, 04671-4 ####[facility] LABCLIA [id number] [place] [address] [place] HIV immunoassay testing algorithm interpretation (S/P/Bld) [Interp] Normal [facility] Comment on above: Order Comment: Speci men Type: BLOOD SPECIMENOrdering Facility: [facility] Address: [address] [place] [address] Result Comment: No e vidence of HIV-1 or HIV-2 infection. Should recent infection be suspected, repeat testing may be considered 2-3 weeks after this draw. [place] Rev. Code 3701.243(E): This information has been [...] or diagnoses. Performed By: #### 5 195-3, 60023-2, 52482-9 ####[facility] LABCLIA [id number] [place] [address] [place] HbA1c (Bld)on 08-15-2024 Average glucose Estimated from glycated hemoglobin (Bld) [Mass/Vol] 85 mg/dL Normal [facility] Comment on above: Order Comment: Speci men Type: SWAB [facility]ing Facility: [facility] Address: [address] [place] [address] Result Comment: eAG: (Estimated average glucose) is a calculated value from HgbA1c and is senior account representative of the average blood glucose level in the last 2-3 month period. Performed By: #### T RVAMP, 74107-5 #### [facility] CLIA [id number] [address] [place] [address] [place] HbA1c (Bld) [Mass fraction] 4.6 % Normal 4.3-5.6 [facility] Comment on above: Order Comment: Speci men Type: SWAB Ordering Facility: [facility] Address: [address] [place] [address] Result Comment: [place] Diabetes Association guidelines indicate that patients with HgbA1c in the range 5.7-6.4% are at increased risk for development of diabetes, and intervention by lifestyle modification may be beneficial. HgbA1c greater or equal to 6.5% is considered diagnostic of diabetes. Performed By: #### T RVAMP, 28179-6 #### [facility] CLIA [id number] [address] [place] [address] [place] [id number] PLUSon 08-15-2024 Cell-free DNA./Cell-free DNA.total Dosage of chromosome-specific cfDNA (cfDNA) [Molar fraction] 19% Normal [facility] Comment on above: Order Comment: Speci men Type: SWAB Ordering Facility: [facility] Address: [address] [place] [address] Performed By: #### T RVAMP, 62167-8 #### [facility] CLIA [id number] [address] [place] [address] [place] Chr 13+18+21+X+Y aneuploidy Dosage of chromosome-specific cfDNA Ql (cfDNA) Negative Normal [facility] Comment on above: Order Comment: Speci men Type: SWAB Ordering Facility: [facility] Address: [address] [place] [address] Performed By: #### T RVAMP, 88220-0 #### [facility] CLIA [id number] [address] [place] [address] OF JUNIOR Chr 21 trisomy Dosage of chromosome-specific cfDNA Ql (cfDNA) Negative Normal [facility] Comment on above: Order Comment: Speci men Type: SWAB Ordering Facility: [facility] Address: [address] [place] [address] Performed By: #### T RVAMP, 73769-4 #### [facility] CLIA [id number] [address] [place] [address] [place] Chr X and Y aneuploidy risk Sequencing Ql (cfDNA) [Interp] Not detected Normal [facility] Comment on above: Order Comment: Speci men Type: SWAB Ordering Facility: [facility] Address: [address] [place] [address] Result Comment: Not Detected Not Detected Performed By: #### T RVAMP, 09340-7 #### [facility] CLIA [id number] [address] [place] [address] [place] Citation Bola (Reference lab test) Comment Normal [facility] Comment on above: Order Comment: Speci men Type: SWAB Ordering Facility: [facility] Address: [address] [place] [address] Result Comment: 1. P eric ROSAS, et al. Jade Med. 2012;14(3):296-305. 2. Cristina CONCEPCION et al. Prenat Diag. 2013;33(6):591-597. 3. Landen Cerda, et al. Clin Chem. 2015 Apr;61(4):608-616. 4. Neyda ROSAS et al. Jade Med. 2011;13(11):913-920. 5. ACOG/SMFM Practice Bulletin No. 226, Jan 2020. Performed By: #### T RVAMP, 00042-6 #### [facility] CLIA [id number] [address] [place] [address] [place] Gestational age Estimated from conception date Dooley Normal [facility] Comment on above: Order Comment: Speci men Type: SWAB Ordering Facility: [facility] Address: [address] [place] [address] Performed By: #### T RVAMP, 71606-2 #### [facility] CLIA [id number] [address] [place] [address] [place] GESTATIONALAGE AGE > OR = [address]W Yes Normal [facility] Comment on above: Order Comment: Speci men Type: SWAB Ordering Facility: [facility] Address: [address] [place] [address] Performed By: #### T RVAMP, 33791-0 #### [facility] CLIA [id number] [address] [place] [address] [place] Laboratory comment Bola (Report) Comment Normal [facility] Comment on above: Order Comment: Speci men Type: SWAB Ordering Facility: [facility] Address: [address] [place] [address] Result Comment: The MaterniT(R) 21 PLUS laboratory-developed test (LDT) analyzes circulating cell-free DNA from a maternal blood sample. This test is used for screening purposes and not diagnostic. Clinical correlation is recommended. Validation data on twin pregnancies is limited and the ability of this test to detect aneuploidy in higher multiple gestations has not yet been validated. Performed By: #### T RVAMP, 97867-3 #### [facility] CLIA [id number] [address] [place] [address] major gifts director name Nom (Provider) Comment Normal [facility] Comment on above: Order Comment: Speci men Type: SWAB Ordering Facility: [facility] Address: [address] [place] [address] Result Comment: This specimen showed an expected representation of chromosome 21, 18 and 13 material. Clinical correlation is suggested. Comment Dajuan Luna MD, PhD, Director, [employer] Performed By: #### T RVAMP, 64992-1 #### [facility] CLIA [id number] [address] [place] [address] LIMITATIONS OF THE TEST Comment Normal [facility] Comment on above: Order Comment: Speci men Type: SWAB Ordering Facility: [facility] Address: [address] [place] [address] Result Comment: Ashley rogel the results of [...] and Fragmin(R)). Performed By: #### T RVAMP, 18291-1 #### [facility] CLIA [id number] [address] [place] [address] STATES OF [facility] Monosomy X risk Dosage of chromosome-specific cfDNA Ql (Plasma cell-free+WBC DNA) [Interp] Not detected Normal [facility] Comment on above: Order Comment: Speci men Type: SWAB Ordering Facility: [facility] Address: [address] [place] [address] Performed By: #### T RVAMP, 39879-2 #### [facility] CLIA [id number] [address] [place] [address] STATES OF JUNIOR NEGATIVE PREDICTIVE VALUE Note Normal [facility] Comment on above: Order Comment: Speci men Type: SWAB Ordering Facility: [facility] Address: [address] [place] [address] Result Comment: The Negative Predictive Value (NPV) for trisomy 21, 18, and 13 is greater than 99%. The NPV for SCA and ESS cannot be calculated as SCA and ESS are only reported when an abnormality is detected. Performed By: #### T RVAMP, 36839-8 #### [facility] CLIA [id number] [address] [facility] [place] [id number] [facility] OF JUNIOR PERFORMANCE CHARACTERISTICS Note Normal [facility] Comment on above: Order Comment: Speci men Type: SWAB Ordering Facility: [facility] Address: [address] [place] [address] Result Comment: ! Sex ! Accuracy: 99.4% [...] ! ! ! * As reported in [facility] database nstd37 [https://www.ncbi.nlm.nih.gov/dbvar/studies/nstd37/ ] # Estimated Sensitivity. Sensitivity estimated across the observed size distribution of each syndrome [per [facility] database nstd37] and across the range of fractions observed in routine clinical NIPT. Actual sensitivity can also be influenced by other factors such as the size of the event, total sequence counts, amplification bias, or sequence bias. ## Dooley gestation only. Performed By: #### T RVAMP, 59221-9 #### [facility] CLIA [id number] [address] [place] [address] [place] POSITIVE PREDICTIVE VALUE N/A Normal [facility] Comment on above: Order Comment: Nicole keyes Type: SWAB Ordering Facility: [facility] Address: [address] [place] [address] Performed By: #### T RVAMP, 54101-4 #### [facility] CLIA [id number] [address] [place] [address] [place]UN[place] Reference Lab Test Method Comment Normal [facility] Comment on above: Order Comment: Nicole keyes Type: SWAB Ordering Facility: [facility] Address: [address] [place] [address] Result Comment: See Notes Circulating cell-free DNA [...] and 22. Performed By: #### T RVAMP, 71451-0 #### [facility] CLIA [id number] [address] [place] [address] [place] Service comment (Unsp spec) [Interp] Comment Normal [facility] Comment on above: Order Comment: Speci men Type: SWAB Ordering Facility: [facility] Address: [address] [place] [address] Result Comment: See Notes [facility]. is a subsidiary of [employer], using the brand [facility]. This test was developed and its performance characteristics determined by [facility]. It has not been cleared or approved by the Food and Drug Administration. This laboratory is certified under the Clinical Laboratory Improvement Amendments (CLIA) as qualified to perform high complexity clinical laboratory testing and accredited by the [employer] (CAP). If there is future clinical need for adding MaterniT GENOME testing, this specimen will be available until term. [facility] samples will not be retained beyond 60 days. [facility] patients will have to send a new sample for re-sequencing ([facility] Test Code: 590773). Performed By: #### T RVAMP, 31687-0 #### [facility] CLIA [id number] [address] [place] [address] [place] Sex Dosage of chromosome-specific cfDNA Nom (cfDNA) Comment Normal [facility] Comment on above: Order Comment: Speci men Type: SWAB Ordering Facility: [facility] Address: [address] [place] [address] Result Comment: Cons istent with Female Performed By: #### T RVAMP, 23856-8 #### [facility] CLIA [id number] [address] [place] [address] [place] Test performance information Bola (Unsp spec) Comment Normal [facility] Comment on above: Order Comment: Speci men Type: SWAB Ordering Facility: [facility] Address: [address] [place] [address] Result Comment: The performance characteristics of the MaterniT(R) 21 PLUS laboratory-developed test (LDT) have been determined in a clinical validation study with women at increased risk for chromosomal aneuploidy.[1-4] Performed By: #### T RVAMP, 20348-4 #### [facility] CLIA [id number] [address] [place] [address] [place] Trisomy 13 risk Dosage of chromosome-specific cfDNA Ql (cfDNA) [Interp] Negative Normal [facility] Comment on above: Order Comment: Speci men Type: SWAB Ordering Facility: [facility] Address: [address] [place] [address] Performed By: #### T RVAMP, 67331-3 #### [facility] CLIA [id number] [address] [place] [address] STATES OF JUNIOR Trisomy 18 risk Dosage of chromosome-specific cfDNA Ql (Plasma cell-free+WBC DNA) [Interp] Negative Normal [facility] Comment on above: Order Comment: Speci men Type: SWAB Ordering Facility: [facility] Address: [address] [place] [address] Performed By: #### T RVAMP, 96375-4 #### [facility] CLIA [id number] [address] [place] [address] [place]IOR RUBELLA IGG ANTIBODYon 08-15 RUBELLA IGG AB, QUAL Positive Normal Positive [facility] Comment on above: Order Comment: Neali men Type: BLOOD SPECIMENOrdering Facility: [facility] Address: [address] [place] [address] Result Comment: The result suggests recent or past exposure to Rubella virus or history of Rubella vaccination. Positive result may also be seen due to presence of passively-transferred antibodies. Please correlate with patient's history. Performed By: #### R UBIGG ####[facility] [id number] [place] [address] [place] Reagin and Treponema pallidu m IgG and IgM [Interp]on 08-15-2024 T. pallidum IgG+IgM IA Ql (S) Non-Reactive Normal Nonreactive [facility] Comment on above: Order Comment: Speci men Type: BLOOD SPECIMENOrdering Facility: [facility] Address: [address] [place] [address] Performed By: #### 5 195-3, 61157-9, 67304-7 ####[facility] [id number] [place] [address] [place] Reagin+T pallidum IgG+IgM Se rPl-Impon 08-15-2024 Reagin and Treponema pallidum IgG and IgM [Interp] Cannot exclude recent Treponemal infection if specimen collected within 7-10 days after appearance of suspect lesions or 2-3 weeks after an exposure. Clinical correlation is required. Normal [facility] Comment on above: Order Comment: Speci men Type: BLOOD SPECIMENOrdering Facility: [facility] Address: [address] [place] [address] Performed By: #### 5 195-3, 93649-0, 00546-4 ####[facility] [id number] [place] [id number] [place]UN[place] TYPE + SCREEN PRENATALon ABO O Normal [facility] Comment on above: Order Comment: Speci [facility] Type: BLOOD SPECIMEN Ordering Facility: [facility] Address: [address] [place] [address] Performed By: #### 5 7021-8 #### [facility] CLIA [id number] [address] [place] [address] [place] Rh Nom (Bld) Positive Normal [facility] Comment on above: Order Comment: Speci men Type: BLOOD SPECIMEN Ordering Facility: [facility] Address: [address] [place] [address] Performed By: #### 5 7021-8 #### [facility] CLIA [id number] [address] [place] [address] [place] [facility] TYPE AND SCREEN EXPIRATION 08/18/2024 23:[address] [facility] Comment on above: Order Comment: Speci men Type: BLOOD SPECIMEN Ordering Facility: [facility] Address: [address] [place] [address] Performed By: #### 5 7021-8 #### [facility] CLIA [id number] [address] [place] [address] [place] Bacteria Ur Culton 5 Bacteria identified Cx Nom (U) CULTURE, URINE: No growth (<1,000 CFU/ml) Normal [facility] Comment on above: Performed By: #### 6 30-4 ####[facility] [id number] [place] [address] [place] C. trachomatis+N. gonorrhoea e DNA AD+probe Ql (Unsp spec)on 07-18-2024 C. trachomatis rRNA AD+probe Ql (Unsp spec) Not detected Normal Not detected [facility] Comment on above: Order Comment: Speci men Type: SWAB Ordering Facility: [facility] Address: [address] [place] [address] Performed By: #### T RVAMP, 68668-8 #### [facility] CLIA [id number] [address] [place] [address] [place] N. gonorrhoeae rRNA AD+probe Ql (Unsp spec) Not detected Normal Not detected [facility] Comment on above: Order Comment: Speci men Type: SWAB Ordering Facility: [facility] Address: [address] [place] [address] Performed By: #### T RVAMP, 67628-8 #### [facility] CLIA [id number] [address] [place] [address] [place] POC FIRING PIN GAUGER ULTRASOUNDon 07-19-19 Indication Confirmation of intrauterine . Confirmation of cardiac activity. Estimation of gestational age Impression cardiac activity is visualized, CRL indicates discrepancy from clinical dates, ENE not changed, having 1st trimester US in [...] Read By: Yasmeen Vera CNP MATERNAL MEDICINE [facility] Radiology Study observation (narrative) [facility] TRICHOMONAS VAGINALIS NAATon 07-18-2024 T. vaginalis DNA AD+probe Ql (Unsp spec) Not detected Normal Not detected [facility] Comment on above: Order Comment: Speci men Type: SWAB Ordering Facility: [facility] Address: [address] [place] [address] Performed By: #### T RVAMP, 62087-1 #### [facility] CLIA [id number] [address] [place] [address] STATES OF JUNIOR [place] 07-15-2024 DAVYN Telephone (OBOcean ButterfliesWM) -------- SMITA NGUYEN ([id number]) 1995 F Date Time Provider Department 07/15/24 [...] Encounter Status:Closed by PAMELA COOPER on 07/15/24 [facility] CNOVon 06-13-2024 CNOV Office Visit (OBGYWM) -------- WENDYCARLOSSMITA ([id number]) 1995 F Date Time Provider Department 06/13/24 [...] Living0 SAB0 IAB0 Ectopic0 Multiple0 Live Births0 Cell Plasterer History LMP: 05/18/2024 (Exact Date), Having periods Age at Menarche: Age at First : Age at Menopause: Cell Plasterer History Comments: Sexual Activity: Yes; Male Contraception: [...] discussed with the Patient or Patient's Authorized Application Software Engineer. As applicable, any other physician, advance practice provider, medical student, or other health professional student that will be observing or involved in the sensitive examination for educational or training purposes was discussed with the Patient or Authorized Application Software Engineer. The Patient or Authorized Application Software Engineer has agreed to proceed with the sensitive [...] a psy (more content not included)... Normal [facility] [place] Pelvison 05-19-2024 Indication irregular menses, desire [...] Read By: Marcie Shields M.D. MATERNAL MEDICINE [facility] Pelvison 05-16-2024 Radiology Study observation (narrative) [facility] C[facility] Telephone (OBGYWM) -------- SMITA NGUYEN ([id number]) 1995 F Date Time Provider Department 05/09/24 BRENNAN HEAD During your visit today, we recorded the following information about you: Allergies As of Date: 05/09/2024 Noted Allergy Reaction AZITHROMYCIN 10/30/2023 2 - Rash 4 - Hives 8 - GI Upset BUSPIRONE 01/29/2023 1 - Mental Status Change MORPHINE 05/02/2022 8 - GI Upset Date Reviewed: 05/07/2024 Reviewed by: Brennan Head APRN.TUMBLING BARREL PAINTER - Fully Assessed Reason for Visit: Results [...] Status:Closed by BRENNAN HEAD on 05/14/[address] [facility] Bacteria Ur Culton 5 Bacteria identified Cx [...] , Intermediate >32 , Resistant >[address] 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 Smita Nguyen is [...] L0 SAB0 IAB0 Ectopic0 Multiple0 Live Births0 Cell Plasterer History LMP: 03/22/2024 (Exact Date), Having periods Age at Menarche: Age at First : Age at Menopause: Cell Plasterer History Comments: Sexual Activity: Yes; Male Contraception: [...] or incontinence. + dysuria, odor Expanded ROS: CLIENT RELATIONSHIP EXECUTIVE: Negative for abnormal vaginal bleeding, abnormal vaginal [...] Date Reviewed: 05/07/2024 Reviewed by: Brennan Head APRN.TUMBLING BARREL PAINTER - Fully Assessed Reason for Visit: Vaginal Problem [117] Urinary Problem [252] Primary Visit Diagnosis:Dysuria [R30.0] Other Visit Diagnoses:Vaginal discharge [N89.8] Desire for [Z31.9] Irregular menstrual cycle [N92.6] Order(s):UA DIP, URINE (POC) [[id number]] Order #: [id number]. #:[id number] BACTERIAL CULTURE, URINE [SQURCUL] Order #: [id number]. #:[id number] nitrofurantoin monohydrate and macrocrystal (MACROBID) 100 mg capsuleTake 1 capsule by mouth two times a day for 7 days.Disp: 14 capsuleRfl: 0 PELVIC US I [[id number]] Order #: [id number] (more content not included)... Normal [facility] UA DIP, URINE (POC)on 2024 BILIRUBIN UA (POCT) Negative Negative [facility] CLARITY UA (POCT) [facility] COLOR UA (POCT) Yellow [facility] GLUCOSE UA (POCT) Negative Negative mg/dL [facility] Hemoglobin Ql (U) Moderate Abnormal Negative [facility] Interpretation and review of laboratory results Abnormal [facility] KETONE UA (POCT) Negative Negative mg/dL [facility] LEUKOCYTES UA (POCT) Moderate Abnormal Negative [facility] NITRITE UA (POCT) Negative Negative [facility] PH UA (POCT) 6.0 4.5 - 8.0 [facility] Protein Ql (U) Negative Negative mg/dL [facility] SPECIFIC GRAVITY UA (POCT) 1.020 1.005 - 1.030 [facility] UROBILINOGEN UA (POCT) 0.2 Normal E.U./d L [facility] Location:[facility], [address], [place], [place], [id number] [place] [address] POINT OF CARE [facility] BACTERIAL VAGINOSIS NAATon 1 05-29-2023 Lactobacillus crispatus+gasseri+jense shakira + Gardnerella vaginalis + Atopobium vaginae rRNA AD+probe Ql (Vag fld) Not detected Normal Not detected [facility] Comment on above: Order Comment: Speci men Type: SWABOrdering Facility: [facility] Address: [address] [place] [address] Performed By: #### B HELENE CVTV ####[facility] [id number] [place] [address] [place] MYRA/TRICHOMONAS NAATon 1 05-29-2023 C. glabrata RNA AD+probe Ql (Vag fld) Not detected Normal Not detected [facility] Comment on above: Order Comment: Speci men Type: SWABOrdering Facility: [facility] Address: [address] [place] [address] Performed By: #### B VAMP, CVTV ####[facility] [id number] [address] OF JUNIOR Myra sp DNA AD+probe Ql (Vag fld) Not detected Normal Not detected [facility] Comment on above: Order Comment: Speci men Type: SWABOrdering Facility: [facility] Address: [address] [place] [address] Result Comment: The Myra species group target includes C. albicans, C. tropicalis, C. parapsilosis, and C. dubliniensis. Performed By: #### B VAMP, CVTV ####[facility] [id number] [address] OF JUNIOR T. vaginalis DNA AD+probe Ql (Unsp spec) Not detected Normal Not detected [facility] Comment on above: Order Comment: Speci men Type: SWABOrdering Facility: [facility] Address: [address] [place] [address] Performed By: #### B VAMP, CVTV ####[facility] [id number] [address] OF JUNIOR CNOVon 03-28-2024 CNOV Office Visit (OBGYWM) -------- WENDYSMITA ([id number]) 1995 F Date Time Provider Department 03/28/24 [...] L0 SAB0 IAB0 Ectopic0 Multiple0 Live Births0 Cell Plasterer History LMP: 03/22/2024 (Exact Date), Having periods Age at Menarche: Age at First : Age at Menopause: Cell Plasterer History Comments: Sexual Activity: Yes; Male Contraception: [...] discussed with the Patient or Patient's Authorized Application Software Engineer. As applicable, any other physician, advance practice provider, medical student, or other health professional student that will be observing or involved in the sensitive examination for educational or training purposes was discussed with the Patient or Authorized Application Software Engineer. The Patient or Authorized Application Software Engineer has agreed to proceed with the sensitive examination. (Sensitive examination includes inspection and/or palpation of the breasts, pelvis, prostate and anorectal regions). EXAM: BP 110/74 Wt 172 lb (78.0kg) LMP 03/22/2024 GENERAL: pleasant, female in no apparent distress HEENT: Normocephalic and atraumatic NECK: Supple and full range of motion PELVIC: external genitalia normal, normal Bartholin's glands, urethra, [place]'s glands, no vulvar lesions, no cervical lesions, [...] [N89.8] Order(s):MYRA/T RICHOMONAS NAAT [SQCVTV] Order #: [id number]. #:[id number] BACTERIAL VAGINOSIS NAAT [SQBVAMP] Order #: [id number]. #:[id number] Prescriptions as of 03/28/2024 - progesterone micronized [...] - chol (more content not included)... Normal [facility] HIGH RISK HUMAN PAPILLOMA ANTONELLA (HPV), PCR FOR DETECTION AND GENOTYPINGOrdered By: Asha Mackenzie on 02-08-2024 HPV 16 Ag Ql (Unsp spec) Not detected Not detected [facility] HPV 18 Ag Ql (Unsp spec) Not detected Not detected [facility] HPV 31+33+35+39+45+51+52+56 +58+59+66+68 DNA AD+probe Ql (Cvx) Not detected Not detected [facility] Comment on above: High Risk HPV Other Type includes HPV types 31, 33, 35, 39, 45, 51, 52, 56, 58, 59, 66 and 68. Interpretation and review of laboratory results Normal [facility] This test was developed and its performance characteristics determined by [facility]'s [facility] ([facility]). It has not been cleared or approved by the FDA. [facility] is regulated under CLIA as qualified to perform high-complexity testing. This test is used for clinical purposes. It should not be regarded as investigational or for research. [facility] No Panel InformationOrdered By: Naz Salazar on 02-08-2024 [facility] PAP TESTOrdered By: Naz garcia on 02-08-2024 Case Report Gynecologic Cytology Report Case: [id number] Authorizing Provider: Camelia Herrera APRN.CNM Collected: 02/04/2024 03:18 PM Ordering Location: OB/Gynecology Received: 02/04/2024 04:29 PM First Screen: Naz Salazar, CT, ASCP Specimen: Pap Test, ThinPrep, Cervix [facility] Clinical History Routine Exam [facility] Interpretation Negative [facility] LMP 01/15/2024 [facility] Pap Disclaimer a1lclHRiBQXal4mkHK VmbGFuZzEwMzNcZnRu YmpcdWMxIHtccnRmMV vbp0TvQ6ZvJfUyQWjn bnNpXGRlZmxhbmcxMD VtFMF2rfMvYRIuAUdk LQIqKQexKj2izTStcQ kxQcPlRSSoc1ezffKK gufnfXe6e3yqJLVqDv T6uUOyKQkfV3mhkbZf uGQmJHRqEVn5nG68HD JvuL5rtGJfRQfdcjKh TuA3BZbtFPUqMwL9NT CisHPqSWZeI7ohCXDc XGdyZWVuMFxibHVlMC F8sOpti8Y2mISzlIDo dHtcZjBcZnMyMiBOb3 JmERg9mXidH0BpHMCh GaV2pGMlPOUoJVvuNE GpZJAofyE6rF36GFgb eaN3xAVpn2Vta77cg3 14uV1lyIImSPC0SYWm NOOqgRPjDMMwMOA8KI ZlwLUiZ8owKZThVY0f cmdyMTgwMFxtYXJndD J7QAHqwZLdX6YkZRNw VGvwCYWjhqe0BeVdCo 9tuSLjiWvyLDgzl3da h2vzlKYhEcs3EBEgTi CqAyxsFZbyu6Gsb8sf MYRcap3lVVK9wMNbmZ jka5N6aDEaLEYhuZCy qpTiIJPrPyU2KBdhQI 2fsa79XPKiLGX3zz6l bGNccGdicmRyaGVhZF qkD3IuJEBux724HEZc L7YmIOKtq7Z1hdJuNl JhWWHaeWG4liI4EGRr NZh9nBDfudL8gcZksM YkX5bntE9cGGCiWU2i yhptf1ccABtySNnqZL NtuOF7pdT0JKNlkXWj G6HehJ8aWLXbKOsoSI Jazxg6JoTyJl1ziDPn eTcyMFxzYmtwYWdlXH BnbmNvbnRccGduZGVj XHBsYWluXHBsYWluXG YwXGZzMjRccWxccGxh lG2iTfVoHoZmObyzEY 6fPAGbK7vsdPUeUGTj GMFpU3dbObFxvH3maC wuCBbaozB8VKZpRAID VJTxB10cELXvdXHgJW FcD6JeCL8ubazwqFHr iLSpx9BkM8DitzppHF uqL6JvA8ZjBrTiBbRi a1EgvuYgVMLtbgFtno RjxBn0aqMxS3M9jqV5 tNZiUCNfrEFyO2XnKD 5pbmcgdGVzdHMsIGVt iOmkb8o4zR7rXAKdPN BuZWVkIGZvciByZXNj cmVlbmluZyBhdCByZW JuzW3binZgMXZljwRd cnZhbHMsIGFuZCBjbG rduBMilXKza7UsYFiz hCzqke2uwFxsmY0uRg IjAhRfUrxcLU7fUSQt L2qhzFFgVOZwIVFzO2 psGbOttG3eeFqmRRar qzIyQMWobm42 [facility] PAP Alteration Manager Comment c5bjjKFkFTMqh0ttJX VmbGFuZzEwMzNcZnRu YmpcdWMxIHtccnRmMV yti0WiP0YlUaBmXNnr bnNpXGRlZmxhbmcxMD QtQBE0bhSlQFOkLRgu ROFiZTtlJy8uwSPwgM vnEaMjXICsq6mbsnGQ vshddVk3u6okOFKlDw N0eBJxRLmnN2uartIz wKRpYXFbWUe1uF68GQ MijB2wrPUxENrgdjEg DhL0PQzuRYLpHeY9JA XhhNFbVHYyH8sjJPLk XGdyZWVuMFxibHVlMC D7pOcly0Z1tAKrzMOu dHtcZjBcZnMyMiBOb3 KyGZd2dQwrR4EpOXSn EfY1kUNcTTLyOWpzWD GkMWYoubR7qM17HMqj dvI0nXNrb7Vuf57fw8 18yG3csPTnPUD7PUDi GRIzyAKjBIGlOZJ0XX QmwJJdL0pnABEvVY9m cmdyMTgwMFxtYXJndD E7IDTqnSPeF2NzQTPp SXxtGHNooot6KrOaVq 4hiZOwqPdkJKurx6pk i2cptTKwNzx5XPFjQc DgDnymUOgwo1Rgq2ur YMVaaz8vOYR9zANbrO ynz7Z1bWZtKPBuiXOm ycStGFSsQxA2RIicPF 1fkp58KECwUYM7tc3r bGNccGdicmRyaGVhZF vmY9RtZJCat669XGLg F5RqCPRsc1F3mxKgGb HqFJEirVL4fvE3TMXk WSo8eSGpudE2pmPjyE RaS4dyxS6wJRIwUF0p kcsas1nfIAajWAqtJB NvwSU5lqM3RGYzsVDy R9CkqA8tJRInRGtiBJ Mygmf9BgUoBj9cjHSw eTcyMFxzYmtwYWdlXH BnbmNvbnRccGduZGVj XHBsYWluXHBsYWluXG YwXGZzMjRccWxccGxh rN3lAcHfDfZjQvvzNW 1uAKHoI2sviSGsDIXx JBItT3slIwDncR0nrW feXTyhemD2PKppNOau jlYijQIxkO2zgeAlSD MgYmVlbiBhbmFseXpl VWKtwDQ3hFXcETjbta UgKCCmEK3iE9ygGoFN xZF5SX7hFETfSWZ0wH 6gFSRhADQwoXCnpR8v IGFuZCByZXZpZXcgc3 jusXWaXMC2gNypiOIu j8Hxs6TcQRVgYOPaPM RuqyD4o0D8IOcbETI7 VXb1YSTuasnwG3BjiT Csx40lMXtskmGrPHNi TROfVYGia2FaQuBxOp 0woA86fC8eOKH8iT0g KRTrYIOsqYDfoM3iZV ZvZDvkX0WbHQVnmTSi ZHMgZnJvbSBldmVyeS BzbGlkZSBhcmUgcmV2 kGN7KAUuRfnvQAQjzN PtzUEfeA1tnY2jfIQ4 LlxwbGFpblxmMVxmcz IyXGxhbmcxMDMzXGhp U2gmSkRaBIKxlYhzVM zzb7YlXLOkGGBfBfHv cGFyfX0= [facility] Performing Lab q4uoxFAcOZFth1tcRO VmbGFuZzEwMzNcZnRu YmpcdWMxIHtccnRmMV xhbnNpXGRlZmxhbmcx UICiMXC9axGjOYPnKZ Z2XSS9RpSrg1F1SZFn BcRyNHPdNJ0scNenLG FbYV5cDPEsH9cgjY6z dpx6NdHpOWDkQsK3CT IfitD4Ueh0HZDjLRkl k1dls4KlNYVvJEp0dK tkAeUqQPDiu2ulpeLk ZmNoYXJzZXQwIEFyaW HwT419r4iuw1ebysXg gGH8MNCrNWU3VNcrcy JmsmC2DWptgEVmEjD9 IDtccmVkMFxncmVlbj LkDeo2FMPbO800UWF7 sEfxe9ctYWD5FRMxNE AmSgZnTi6aqFAlG304 RPHvONTBYUDghPk6DB KnemVgjrNrrBTPc247 K870j1ceQNJpajPrrT iCrjzqv5lmX860KKIn cGVydzEyMjQwXHBhcG TyfZS8IDOoZU3mkpre IHieUXjkWLQbbaN9LG RjyBFoM8VtBMEcFY2c ybqnFAZ7ESazZYCqFE F0OoEvYPBgz4Oyytu2 YnLrse5qhl96YYU8i7 BuuRavHSS3NVX8EeCe Hx6aeWDjGLKvHR5iEv CipAXhEWIsor58mXtd WXqkbkEybM3hYvMaPM RunJFjEJChBH9rpRUt ZKLdeV3lxhqvMFIrSg JkcmhlYWRccGdicmRy Gx0wnPatJQB3RJnuH8 xmyU4qBfK9FSkmD3zy xQ8mCCl1MNllnOP5BZ MdfC3xOH5ezfuea0fn GTsmEKoaZKCylvG6oe F4TJLvtWBpB5SxlM7g IDIwEU9ujtkcb2exYC Q1FJagDWIiYDY2ZfHd CDRqc5Ncpdi1DzHaf9 NdrHPpPZduB04mo406 NIIahqMzR0uxaTHmjd xwbGFpblxmMFxmczI0 XHFsXHBsYWluXGYxXG ZzMjJcbGFuZzEwMzNc aGljaFxmMVxkYmNoXG InUAvtA8wmFlMmBuAr MiBUZWNobmljYWwgY2 8ptI7rQO76YWQzjCXg vSPpxM1idN8fmAC4DJ NjcmVlbmluZyBwZXJm j3GkGJVbAFWgZ3nvbv DpHE1oBMHtnD5xIuup OTUwMCBFdWNsaWQgQX RcYXUSgAQ5KLudsyDr T2ebIAWeMAWkUGSPYV cKEuTcRkWpNrV9XXv4 DAVyzr04k8bfePKrUO NzdGVjZjIyMDAwXGFu p7lkLSWewXZiDbYpAr NcZnRuYmpcdWMxXGRl KfKov8jgb222aCXbz5 khYLExQqL2wYUcAZCz iKKhP900FGFhJRgei4 txi7HqMBOicPFdb3F8 UVIQrgqpbHb3mBhwA3 1dh8S1MlzcG1dmDGRu MXCkL1GkYF5fOWLvYf k0WTG1IIF4BHZlCKFg R0IgZR2oKUKtlNGsZD o1i0nrmBorONEiBCX9 d9npVEtebqXkZZ4tbu 7zrWl9m4qxfnWxYBFc XOHvjZCYREZrC8OdeY biKp3czCo4xHxvIruu LPF4Qnu7RX0iip68qy u7bJotFQKucatbXqO6 WYatUMNrjqisZCf4TE bsDFPraBR7IFXceIFe G4PkJOpbIF8huop2ND T6CGufSHZvSpY2WNCi aGVhZGVyeTcyMFxmb2 29FSR6UfJyBQ6yH4Cb c5H6rW7mtHAbJAHnfO IkIgAuUBRdab0blAOv BEpym8UlCDT2qfG3eX XtxMKyXFOoWZ78Yudw z0NfTupxk5UeP54hsY E3RYtvi7neHA2kGmO2 egPrFWfbe3obrG5lYp J8TCydZL1qRN8fEUZo eC4pbrbeQNSmHbDjah fpQVEgcHlcxzSjVf6j qKqzEZX3XGwyO8vbhL 4wOtI5UUdhP5slhX3e RCd2JTytcEM4YFOdaC 7qVZ5sefhbp2ilNUgs SGeeGEIktrF5bvOiZE TcaLKiK8CovA5lKOXv BJ2qzmqkz7rpGUK8YC leTJRwXCV3NlYiMCWd r9Wswyo6IlMkz1HtpV NjSCbyR43ov334BCLp cwMcP6utgPYevqbtjR AgjqljPBpvanR0TZUb XHBsYWluXGYxXGZzMj BcbGFuZzEwMzNcaGlj aFxmMVxkYmNoXGYxXG tyN2fjJvLvZmNuHFGT uSVelp5hyWbpROyzdO NlaYQfyHF7oF8pMBMv auFbom7fDMAxmWTDiA V9GNyauwFsC8fpgskj WSQ9TEMlORZ5K1szJD BBdmUsIENsZXZlbGFu ZPSRHYH5BNL6TBXsTQ PURUEjQYF1JPC3CFNy OTRccGFyXHBhclxwYX JkXHBsYWluXGYwXGZz WxZxyZyiiH6qUgIpAc AuVIbxFJ2wQFBbZ1km xCLeWNTnAITlZ0kiMx CcvE6ciWaiNYnyEfBj ZnMyMFxsdHJjaCBMYW FzhbK9l9T6HSsssOOn blxmMVxmczIwXGxhbm roWDDrCItcQ7qhTnUl VNEznQldFCptr6PvAT YxXGZzMjAgRGlyZWN0 a0O5LAnplLOhszKNTt TCUM5jjGCmtwyqAO2G LlxwbGFpblxmMVxmcz IyXGxhbmcxMDMzXGhp Z3drMvSsDYWpcQrhYA agf5BbGRRiBGGzZuGh cGFyfX0= [facility] Specimen Adequacy Satisfactory for interpretation. [facility] BACTERIAL VAGINOSIS NAATon 1 04-06-2023 Interpretation and review of laboratory results Abnormal [facility] Lactobacillus crispatus+gasseri+jense shakira + Gardnerella vaginalis + Atopobium vaginae rRNA AD+probe Ql (Vag fld) Positive Abnormal Negative for bacterial vaginosis [facility] MYRA/TRICHOMONAS NAATon 04-06-2023 C. glabrata RNA AD+probe Ql (Vag fld) Negative Negative for Myra glabrata [facility] Myra sp DNA AD+probe Ql (Vag fld) Negative Negative for Myra species [facility] Interpretation and review of laboratory results Normal [facility] T. vaginalis DNA AD+probe Ql (Unsp spec) Negative Negative for Trichomonas vaginalis by amplification [facility] BACTERIAL VAGINOSIS NAATon 1 04-05-2023 Lactobacillus crispatus+gasseri+jense shakira + Gardnerella vaginalis + Atopobium vaginae rRNA AD+probe Ql (Vag fld) Positive Abnormal Negative for bacterial vaginosis [facility] Comment on above: Order Comment: Speci men Type: SWAB Ordering Facility: [facility] Address: [address] [place] [address] Performed By: #### T RVAMP, 88256-8 #### [facility] CLIA [id number] [address] [place] [address] [place] MYRA/TRICHOMONAS NAATon 1 04-05-2023 C. glabrata RNA AD+probe Ql (Vag fld) Negative Normal Negative for Myra glabrata [facility] Comment on above: Order Comment: Speci men Type: SWAB Ordering Facility: [facility] Address: [address] [place] [address] Performed By: #### T RVAMP, 77331-8 #### [facility] CLIA [id number] [address] [place] [address] [place] Myra sp DNA AD+probe Ql (Vag fld) Negative Normal Negative for Myra species [facility] Comment on above: Order Comment: Speci men Type: SWAB Ordering Facility: [facility] Address: [address] [place] [address] Performed By: #### T RVAMP, 68045-7 #### [facility] CLIA [id number] [address] [place] [address] [place] T. vaginalis DNA AD+probe Ql (Unsp spec) Negative Normal Negative for Trichomonas vaginalis by amplification [facility] Comment on above: Order Comment: Speci men Type: SWAB Ordering Facility: [facility] Address: [address] [place] [address] Performed By: #### T [facility], 03022-8 #### [facility] CLIA [id number] [address] [place] [address] [place] [address] [place] CNOVon 02-04-2024 CNOV Office Visit (OBGYWM) -------- SMITA NGUYEN ([id number]) 1995 F Date Time Provider Department 02/04/24 2:45 PM CAMELIA HERRERA OBGYWM During your visit today, we recorded the following information about you: Blood pressure Weight Height Last Period 114/68 77.6 kg 1.676 m 01/15/24 Camelia Herrera APRN.CNM 02/11/2024 8:48 AM 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 Grullon is a 28 year old who presents for an annual gynecologic exam. Attempting for the last 7 months. Did not attempt in December due to stress and needed a break. Stopped using OPK kits but did show LH surge when she was using them, notices mucous change during ovulation. Ferney every other day when she is trying [...] L0 SAB0 IAB0 Ectopic0 Multiple0 Live Births0 Cell Plasterer History LMP: 01/15/2024 (Exact Date), Having periods Age at Menarche: Age at First : Age at Menopause: Cell Plasterer History Comments: Sexual Activity: Yes; Male Contraception: [...] discussed with the Patient or Patient's Authorized Application Software Engineer. As applicable, any other physician, advance practice provider, medical student, or other health professional student that will be observing or involved in the sensitive examination for educational or training purposes was discussed with the Patient or Authorized Application Software Engineer. The Patient or Authorized Application Software Engineer has agreed to proceed with the sensitive [...] external genitalia normal, normal Bartholin's glands, urethra, [place]'s glands, no vulvar lesions, no cervical lesions, [...] Appears to (more content not included)... Normal [facility] HIGH RISK HUMAN PAPILLOMA ANTONELLA (HPV), PCR FOR DETECTION AND GENOTYPINGon 02-04-2024 HPV 16 Ag Ql (Unsp spec) Not detected Normal Not detected [facility] Comment on above: Order Comment: Speci men Type: FLUID SPECIMENOrdering Facility: [facility] Address: [address] [place] [address] Performed By: #### H PVHRT ####[facility] [id number] [place] [address] [place] HPV 18 Ag Ql (Unsp spec) Not detected Normal Not detected [facility] Comment on above: Order Comment: Speci men Type: FLUID SPECIMENOrdering Facility: [facility] Address: [address] [place] [address] Performed By: #### H PVHRT ####[facility] [id number] [place] [address] [place] HPV 31+33+35+39+45+51+52+56 +58+59+66+68 DNA AD+probe Ql (Cvx) Not detected Normal Not detected [facility] Comment on above: Order Comment: Speci men Type: FLUID SPECIMENOrdering Facility: [facility] Address: [address] [place] [address] Result Comment: High Risk HPV Other Type includes HPV types 31, 33, 35, 39, 45, 51, 52, 56, 58, 59, 66 and 68. Performed By: #### H PVHRT ####[facility] [id number] [place] [address] [place] PAP TESTon 02-04-2024 ADEQUACY Satisfactory for interpretation. Normal [facility] Comment on above: Order Comment: Speci men Type: SWAB Ordering Facility: [facility] Address: [address] [place] [address] Performed By: #### T RVMICHAEL, 95532-8 #### [facility] CLIA [id number] [address] [place] [address] [place] CASE REPORT Normal [facility] Comment on above: Order Comment: Speci men Type: SWAB Ordering Facility: [facility] Address: [address] [place] [address] Result Comment: Gyne cologic Cytology Report Case: [id number] Authorizing Provider: Camelia Herrera APRN.CNM Collected: 02/04/2024 03:18 PM Ordering Location: OB/Gynecology Received: 02/04/2024 04:29 PM First Screen: Marie, Naz, CT, ASCP Specimen: Pap Test, ThinPrep, Cervix Performed By: #### T RVAMP, 07173-3 #### [facility] CLIA [id number] [address] [place] [address] [place] CLINICAL HISTORY, CYTOLOGY, CLIENT RELATIONSHIP EXECUTIVE Routine Exam Normal [facility] Comment on above: Order Comment: Speci men Type: SWAB Ordering Facility: [facility] Address: [address] [place] [address] Performed By: #### T RVAMP, 00764-8 #### [facility] CLIA [id number] [address] [place] [address] [place] FINAL PERFORMING LAB Normal [facility] Comment on above: Order Comment: Speci men Type: SWAB Ordering Facility: [facility] Address: [address] [place] [address] Result Comment: Tech nical component, floor layer helper screening performed at [facility], [address] [place], [place] [id number] CLIA# [id number] Diagnostic interpretation performed at [facility], [address] [place], [place] [address] CLIA# [id number] Cold Header Operator: Jose Terrell M.D. Performed By: #### T RVAMP, 71253-9 #### [facility] CLIA [id number] [address] [place] [address] [place] INTERPRETATION, CYTOLOGY, CLIENT RELATIONSHIP EXECUTIVE Normal [facility] Comment on above: Order Comment: Speci men Type: SWAB Ordering Facility: [facility] Address: [address] [place] [address] Result Comment: Nega tive for intraepithelial lesion or malignancy. Performed By: #### T RVAMP, 46422-5 #### [facility] CLIA [id number] [address] [place] [address] [place] LMP 01/15/[address] [facility] Comment on above: Order Comment: Speci men Type: SWAB Ordering Facility: [facility] Address: [address] [place] [address] Performed By: #### T RVAMP, 87600-0 #### [facility] CLIA [id number] [address] [place], [place] [id number] [place] PAP DISCLAIMER COMMENT The Pap Smear is a screening test for cervical cancer. False negative results occur with all screening tests, emphasizing the need for rescreening at recommended intervals, and clinical correlation. Normal [facility] Comment on above: Order Comment: Speci men Type: SWAB Ordering Facility: [facility] Address: [address] [place] [address] Performed By: #### T RVAMP, 61308-6 #### [facility] CLIA [id number] [address] [place] [address] PAP TOOL CRIB LEAD COMMENT This specimen has been analyzed by the ThinPrep Imaging System, an automated imaging and review system, which assists the laboratory in evaluating cells on ThinPrep Pap tests. Following automated imaging, selected zuniga from every slide are reviewed by a floor layer helper. Normal [facility] Comment on above: Order Comment: Speci men Type: SWAB Ordering Facility: [facility] Address: [address] [place] [address] Performed By: #### T RVAMP, 32957-4 #### [facility] CLIA [id number] [address] [place] [address] Miscellaneous Lab Procedureo n 10-01-2023 [facility] LAB TEST Normal [facility] Comment on above: Order Comment: RED T OP SER/RF OR LAV PL/RF [id number] [id number] RED TOP SER/RF OR LAV PL/RF Result Comment: TEST RESULTS LIMITS Vitamin B7 A, 0.51 ng/mL 0.05-0.83 TESTING PERFORMED AT [facility]. ORIGINAL REPORT ON FILE IN LAB CONTAINS ADDITIONAL TEST SITE INFORMATION. Performed By: #### L 801.1541 #### [facility] [address] [place], [address] [facility] LAB TEST Normal [facility] Comment on above: Order Comment: PL/FZ LAV/GREEN HEPARIN [id number] AMINO ACID Result Comment: TEST RESULTS LIMITS [...] Director Review Technical Component analysis performed at [facility] Professional Component interpretation performed: [facility] Caprice Sprague, PhD Director, Biochemical Genetics [address] [place] [id number] To discuss these results or other testing for inborn errors of metabolism, please contact our Biochemical Geneticists at [phone] [phone]), [facility] Customer Service, [place], [place] Methodology Amino acid concentrations were obtained by LC-MS/MS analysis. TESTING PERFORMED AT [facility]. ORIGINAL REPORT ON FILE IN LAB CONTAINS ADDITIONAL TEST SITE INFORMATION. TESTING PERFORMED AT [facility]. ORIGINAL REPORT ON FILE IN LAB CONTAINS ADDITIONAL TEST SITE INFORMATION. Performed By: #### L 801.1547, L506.0250, L3300.8200, L3300.8000, L801.1543, L503.0105, L801.1545, L801.1541 #### [facility] [address] [place], [address] Miscellaneous Lab Procedure 2on 10-01-2023 [facility] LAB TEST 2 Normal [facility] Comment on above: Order Comment: [id number] VITB2 LAV WB/FZ [id number] VITB2 LAV WB/FZ Result Comment: TEST RESULTS LIMITS Vitamin B2, Whole Blood Vitamin B2, Whole Blood A, 320 ug/L 137-370 Reference interval reflects Flavin Adenine Dinucleotide (FAD), that accounts for approximately 90% of the total riboflavin in whole blood. TESTING PERFORMED AT [facility]. ORIGINAL REPORT ON FILE IN LAB CONTAINS ADDITIONAL TEST SITE INFORMATION. Performed By: #### L 801.1547, L506.0250, L3300.8200, L3300.8000, L801.1543, L503.0105, L801.1545, L801.1541 #### [facility] [address] [place], [address] Miscellaneous Lab Procedure 310-01-2023 [facility] LAB TEST 3 [facility] Comment on above: Order Comment: FRANCISCO JAVIER Barnhart [id number] VITB3 RED TOP SER OR LAV PL Result Comment: TEST RESULTS LIMITS Vitamin B5 A, 72.9 ng/mL 12.9-253.1 Comments A: This test was developed and its performance characteristics determined by [facility]. It has not been cleared or approved by the Food and Drug Administration. TESTING PERFORMED AT [facility]. ORIGINAL REPORT ON FILE IN LAB CONTAINS ADDITIONAL TEST SITE INFORMATION. Performed By: #### L 801.1547, L506.0250, L3300.8200, L3300.8000, L801.1543, L503.0105, L801.1545, L801.1541 #### [facility] [address] [place], [address] Miscellaneous Lab Procedure 10-01-2023 [facility] LAB TEST 4 [facility] Comment on above: Order Comment: LAV P L/RT [id number] VIT B5 RED TOP SER/RT OR Result Comment: TEST RESULTS LIMITS Vitamin B5 A, 72.9 ng/mL 12.9-253.1 Comments A: This test was developed and its performance characteristics determined by [facility]. It has not been cleared or approved by the Food and Drug Administration. TESTING PERFORMED AT [facility]. ORIGINAL REPORT ON FILE IN LAB CONTAINS ADDITIONAL TEST SITE INFORMATION. Performed By: #### L 801.1547, L506.0250, L3300.8200, L3300.8000, L801.1543, L503.0105, L801.1545, L801.1541 #### [facility] [address] [place], [place], [id number] L3300.8200on 09-26-2023 VITAMIN B6 39.4 ug/L Normal 3.4-65.2 [facility] Comment on above: Order Comment: Test( s) [id number] B6 was developed and its performance characteristics determined by [facility]. It has not been cleared or approved by the Food and Drug Administration. Result Comment: Defi ciency: <3.4 Marginal: 3.4 - 5.1 Adequate: >5.1 Performed By: #### L 801.1547, L506.0250, L3300.8200, L3300.8000, L801.1543, L503.0105, L801.1545, L801.1541 #### [facility] [address] [place], [address] Vitamin B1, Thiamineon 09-25 VIT B1 THIAMINE 130.2 nmol/L Normal 66.5-200.0 [facility] Comment on above: Order Comment: Test( s) [id number]-Zpkdkrr B6 was developed and its performance characteristics determined by [facility]. It has not been cleared or approved by the Food and Drug Administration. Result Comment: Perf ormed at: - [facility] [id number] Bakery Deliverer: Adrian Esqueda MD, Phone: [phone] Performed By: #### L 801.1547, L506.0250, L3300.8200, L3300.8000, L801.1543, L503.0105, L801.1545, L801.1541 #### [facility] [address] [place], [address] Folates, (Folic Acid)on 09-01 FOLATES 57.70 ng/mL High 3.1-55.4 [facility] Comment on above: Order Comment: N Result Comment: Slig ht Hemolysis, Result may be falsely increased. Performed By: #### L 801.1547, L506.0250, L3300.8200, L3300.8000, L801.1543, L503.0105, L801.1545, L801.1541 #### [facility] [address] [place], [address] Vitamin B12on 09-21-2023 Cobalamin (Vitamin B12) [Mass/Vol] 775 pg/mL Normal 211-911 [facility] Comment on above: Performed By: #### L 801.1547, L506.0250, L3300.8200, L3300.8000, L801.1543, L503.0105, L801.1545, L801.1541 #### [facility] [address] [place], [address] ECG 12-LEADon 11-20-2022 ECG 12-LEAD IMPRESSION: Sinus rhythm Electronically Signed On 11-19-2022 23:58:23 EDT by Lukas Darling [facility] ED Nursing Noteon 11-20-2022 ED Nursing Note Pt was discharged without her prescriptions. Voice message was left for pt and her spouse regarding prescriptions. Cinthia Angulo RN 11/20/22 0133 [facility] ED Nursing Note In 45 getting dressed for discharge Barbara Beck 11/20/22 0117 [facility] ED Nursing Note Dr. Donald at bedside Barbara Beck 11/20/22 0056 [facility] ED Nursing Note Pt resting in room. Respirations even and non labored. at bedside. Cinthia Angulo RN 11/20/22 0028 [facility] ED Nursing Note Pt out to restroom to provide urine sample Barbara Beck 11/19/22 2346 [facility] ED Nursing Note Sophia RN at bedside to medicate Barbara Diegontosh 11/19/22 2332 [facility] ED Nursing Note Patient given bagged lunch from [employer] Frances Parks, EMT 11/19/22 2301 [facility] ED Nursing Note Patient has 3 bags of belongings. Frances Parks, MILES 11/19/22 2257 [facility] ED Nursing Note Protective services at patient bedside offering patient cup of water. MILES Elena 11/19/22 2254 [facility] ED Nursing Note Physician is at patient bedside MILES Elena 11/19/22 2234 [facility] ED Nursing Note Patient has 3 bag of belongings. Patient was wanded and changed into two gowns. Frances Parks, MILES 11/19/22 2204 [facility] Laboratory - Drug toxicology Ordered By: Vikash Borden on 11-20-2022 Amphetamines Screen method >1000 ng/mL Ql (U) Negative [facility] Barbiturates Screen method >200 ng/mL Ql (U) Negative [facility] Benzodiazepines Ql (U) Positive [facility] Methadone Screen Ql (U) Negative [facility] Opiates Screen Ql (U) Negative [facility] oxyCODONE Ql (U) Negative [facility] alth Phencyclidine Ql (U) Negative [facility] No Panel InformationOrdered By: Vikash Borden on 11-20-2022 COCAINE METAB. SCREEN Negative [facility] The expected value for all of the [...] is needed, request confirmation under separate order. [facility] .Auto Diffon 11-19-2022 Basophil, Absolute 0.1 10 3/mcL Normal 0.0-0.2 [facility] ([place]) Comment on above: Performed By: #### C BC, ANEU, MDW, ADIFF, GFR, BMP, ALC #### [address] [address] Basophils/100 WBC (Bld) 0.6 % Normal 0.0-2.5 A [facility] ([place]) Comment on above: Performed By: #### C BC, ANEU, MDW, ADIFF, GFR, BMP, ALC #### [address] [address] Eosinophil, Absolute 0.1 10 3/mcL Normal 0.0-0.4 [facility] ([place]) Comment on above: Performed By: #### C BC, ANEU, MDW, ADIFF, GFR, BMP, ALC #### [address] [address] Eosinophils/100 WBC (Bld) 0.6 % Normal 0.0-7.0 [facility] ([place]) Comment on above: Performed By: #### C BC, ANEU, MDW, ADIFF, GFR, BMP, ALC #### [address] [address] Lymphocyte, Absolute 3.1 10 3/mcL Normal 0.8-3.9 [facility] ([place]) Comment on above: Performed By: #### C BC, ANEU, MDW, ADIFF, GFR, BMP, ALC #### [address] [address] Lymphocytes/100 WBC (Bld) 32.1 % Normal 10.0-50.0 [facility] ([place]) Comment on above: Performed By: #### C BC, ANEU, MDW, ADIFF, GFR, BMP, ALC #### [address] [address] Monocyte, Absolute 0.8 10 3/mcL Normal 0.2-1.0 [facility] ([place]) Comment on above: Performed By: #### C ERICA, MD AZULW, ADIFF, GFR, BMP, ALC #### [address] [address] Monocytes/100 WBC (Bld) 8.5 % Normal 1.7-13.0 A [facility] ([place]) Comment on above: Performed By: #### C ERICA, AZUL, MDW, ADIFF, GFR, BMP, ALC #### [address] [address] Neutrophils/100 WBC (Bld) 58.2 % Normal 37.0-80.0 [facility] ([place]) Comment on above: Performed By: #### C ERICA, AZUL, W, ADIFF, GFR, BMP, ALC #### [address] [address] .GFRon 11-19-2022 GFR 79 ml/min/1.73sqm Normal [facility] ([place]) Comment on above: Result Comment: GFR Population [...] By: #### G FR, LIPID, CMP #### [address] [address] GFR Non- 65 ml/min/1.73sqm Normal [facility] ([place]) Comment on above: Result Comment: GFR Population [...] By: #### G FR, LIPID, CMP #### [address] [address] .MDWon 11-19-2022 Monocyte Distribution Width 16.13 Normal 0.00-20.00 [facility] ([place]) Comment on above: Result Comment: For ED adult patients suspected of sepsis, MDW<=20.0 does not rule out sepsis or risk of sepsis Performed By: #### C BC, ANEU, MDW, ADIFF, GFR, BMP, ALC #### [address] [address] .NEUABSon 11-19-2022 Neutrophil, Absolute 5.6 10 3/mcL Normal 2.9-6.2 [facility] ([place]) Comment on above: Performed By: #### C BC, ANEU, MDW, ADIFF, GFR, BMP, ALC #### [address] [address] Loni 11-19-2022 Ethanol Level <3 Normal 0-3 [facility] ([place]) Comment on above: Performed By: #### G FR, LIPID, CMP #### [address] [address] BMPon 11-19-2022 BUN/Creatinine Ratio 14 ratio Normal 7-27 [facility] ([place]) Comment on above: Performed By: #### G FR, LIPID, CMP #### [address] [address] Calcium [Mass/Vol] 9.2 mg/dL Normal 8.4-10.2 [facility] ([place]) Comment on above: Performed By: #### G FR, LIPID, CMP #### [address] [address] Chloride [Moles/Vol] 101 mmol/L Normal 98-107 [facility] ([place]) Comment on above: Performed By: #### G FR, LIPID, CMP #### [address] [address] CO2 [Moles/Vol] 28 mmol/L Normal 22-29 [facility] ([place]) Comment on above: Performed By: #### G FR, LIPID, CMP #### [address] [address] Creatinine [Mass/Vol] 1.01 mg/dL Normal 0.55-1.02 [facility] ([place]) Comment on above: Performed By: #### G FR, LIPID, CMP #### [address] [address] Electrolyte Balance 9.0 mEq/L Normal 4.0-15.0 [facility] ([place]) Comment on above: Performed By: #### G FR, LIPID, CMP #### [address] [address] Glucose [Mass/Vol] 102 mg/dL Normal 70-105 [facility] ([place]) Comment on above: Performed By: #### G FR, LIPID, CMP #### [address] [address] Potassium [Moles/Vol] 3.4 mmol/L Low 3.5-5.1 [facility] ([place]) Comment on above: Performed By: #### G FR, LIPID, CMP #### [address] [address] Sodium [Moles/Vol] 138 mmol/L Normal 136-145 [facility] ([place]) Comment on above: Performed By: #### G FR, LIPID, CMP #### [address] [address] Urea nitrogen [Mass/Vol] 14 mg/dL Normal 7-18 [facility] ([place]) Comment on above: Performed By: #### G FR, LIPID, CMP #### [address] [address] CBCon 11-19-2022 Erythrocyte distribution width (RBC) [Ratio] 12.6 % Normal 11.5-14.5 [facility] ([place]) Comment on above: Performed By: #### C BC, AZUL, MDW, ADIFF, GFR, BMP, ALC #### [place] [address] Hematocrit (Bld) [Volume fraction] 39.0 % Normal 37.0-47.0 [facility] ([place]) Comment on above: Performed By: #### C BC, ANEU, MDW, ADIFF, GFR, BMP, ALC #### [address] [address] Hgb 13.8 G/dL Normal 12.0-16.0 [facility] ([place]) Comment on above: Performed By: #### C BC, ANEU, MDW, ADIFF, GFR, BMP, ALC #### [address] [address] MCH (RBC) [Entitic mass] 31.2 pg Normal 27.0-31.2 [facility] ([place]) Comment on above: Performed By: #### C BC, AZUL, MDW, ADIFF, GFR, BMP, ALC #### [place] [address]47 MCHC 35.4 G/dL Normal 33.0-37.0 [facility] ([place]) Comment on above: Performed By: #### C BC, ANEU, MDW, ADIFF, GFR, BMP, ALC #### [place] [address]47 MCV (RBC) [Entitic vol] 88.2 fL Normal 80.0-94.0 A [facility] ([place]) Comment on above: Performed By: #### C BC, AZUL, MDW, ADIFF, GFR, BMP, ALC #### [address] [address] Platelet 274 10 3/mcL Normal 130-400 [facility] ([place]) Comment on above: Performed By: #### C ERICA, LAMBERT LIANG, ADIFF, GFR, BMP, ALC #### [place] [address] [place], [place] [address] Platelet mean volume (Bld) [Entitic vol] 8.2 fL Normal 7.4-10.4 [facility] ([place]) Comment on above: Performed By: #### C ERICA, AZUL, LAMBERT, ADIFF, GFR, BMP, ALC #### [address] [address] RBC 4.42 10 6/mcL Normal 4.20-5.40 [facility] ([place]) Comment on above: Performed By: #### C ERICA, AZUL, LAMBERT, ADIFF, GFR, BMP, ALC #### [address] [address] WBC 9.7 10 3/mcL Normal 4.6-10.8 [facility] ([place]) Comment on above: Performed By: #### C ERICA, AZUL, LAMBERT, ADIFF, GFR, BMP, ALC #### [address] [address] CBC W Auto Differential pane l (Bld)Ordered By: Cherie Fritz on 11-19-2022 Basophils (Bld) [#/Vol] 0.1 10*3/uL 0.0 - 0.2 10*3/uL [facility] Basophils/100 WBC (Bld) 0.6 % 0.0 - 2.0 % [facility] Eosinophils (Bld) [#/Vol] 0.0 10*3/uL 0.0 - 0.5 10*3/uL [facility] Eosinophils/100 WBC (Bld) 0.3 % Low 1.0 - 6.0 % [facility] Erythrocyte distribution width (RBC) [Ratio] 12.6 % 11.5 - 14.5 % [facility] Hematocrit (Bld) [Volume fraction] 41.7 % 35.0 - 47.0 % [facility] Hemoglobin (Bld) [Mass/Vol] 14.2 g/dL 11.7 - 16.0 g/dL [facility] Interpretation and review of laboratory results Abnormal [facility] Lymphocytes (Bld) [#/Vol] 3.5 10*3/uL 1.0 - 4.3 10*3/uL [facility] Lymphocytes/100 WBC (Bld) 35.1 % 20.0 - 40.0 % [facility] MCH (RBC) [Entitic mass] 31.2 pg 26.0 - 34.0 pg [facility] MCHC (RBC) [Mass/Vol] 34.1 % 32.0 - 36.0 % [facility] MCV (RBC) [Entitic vol] 91.7 fL 80.0 - 98.0 fL [facility] Monocytes (Bld) [#/Vol] 0.7 10*3/uL 0.0 - 0.8 10*3/uL [facility] Monocytes/100 WBC (Bld) 7.1 % 2.0 - 10.0 % [facility] Neutrophils (Bld) [#/Vol] 5.8 10*3/uL 1.8 - 7.0 10*3/uL [facility] Neutrophils/100 WBC (Bld) 56.9 % 40.0 - 80.0 % [facility] Nucleated RBC/100 WBC (Bld) [Ratio] 0.1 % [facility] Platelet mean volume (Bld) [Entitic vol] 8.7 fL 7.4 - 12.4 fL [facility] Platelets (Bld) [#/Vol] 283 10*3/uL 140 - 440 10*3/uL [facility] RBC (Bld) [#/Vol] 4.55 10*6/uL 3.8 - 5.20 10*6/uL [facility] WBC (Bld) [#/Vol] 10.1 10*3/uL 3.6 - 10.7 10*3/uL [facility] [id number] 11-19-2022 SARS-CoV-2 (COVID-19) RNA AD+probe Ql (Unsp spec) Negative Normal Negative [facility] ([place]) Comment on above: Performed By: #### C OVD19 #### [address] [address] SARS-CoV-2 (COVID-19) RNA AD+probe Ql (Unsp spec) Normal [facility] ([place]) Comment on above: Result Comment: Nega tive [...] or inadequate numbers of organisms for amplification. [employer] SARS-CoV-2 Assay is a Real-Time reverse-transcriptase polymerase [...] Int Performed By: #### C OVD19 #### [address] [address] Comprehensive metabolic 1998 panelon 11-19-2022 Albumin [Mass/Vol] 5.0 g/dL 3.5 - 5.0 g/dL [facility] ALP [Catalytic activity/Vol] 66 U/L 38 - 126 U/L [facility] ALT [Catalytic activity/Vol] 21 U/L 0 - 34 U/L [facility] Anion gap [Moles/Vol] 13 mmol/L 3 - 13 mmol/L [facility] AST [Catalytic activity/Vol] 28 U/L 15 - 46 U/L [facility] Bilirubin [Mass/Vol] 0.7 mg/dL 0.2 - 1 .3 mg/dL [facility] Calcium [Mass/Vol] 8.9 mg/dL 8.4 - 10. 4 mg/dL [facility] Chloride [Moles/Vol] 104 mmol/L 98 - 10 7 mmol/L [facility] CO2 [Moles/Vol] 20 mmol/L Low 22 - 30 mmol/L [facility] Creatinine [Mass/Vol] 0.80 mg/dL 0.52 - 1.04 mg/dL [facility] GFR/1.73 sq M.predicted MDRD (S/P/Bld) [Vol rate/Area] - PINF [facility] Comment on above: Calculation based on the Chronic Kidney Disease Epidemiology Collaboration (CKD-EPI) equation refit without adjustment for race Glucose [Mass/Vol] 109 mg/dL High 70 - 100 mg/dL [facility] Interpretation and review of laboratory results Abnormal [facility] Potassium [Moles/Vol] 3.7 mmol/L 3.5 - 5.1 mmol/L [facility] Protein [Mass/Vol] 7.9 g/dL 6.3 - 8.2 g/dL [facility] Sodium [Moles/Vol] 136 mmol/L 135 - 145 mmol/L [facility] Urea nitrogen [Mass/Vol] 13 mg/dL 7 - 17 mg/dL [facility] ED Nursing Noteon 11-19-2022 ED Nursing Note EKG at patient bedside Frances Parks, EMT 11/19/222155 [facility] ED Nursing Note Registration at patient bedside Frances Parks, EMT 11/19/222155 [facility] ED Nursing Note [facility] 11/19/222135 [facility] ED Nursing Note Dr. Darling [facility] 11/19/222131 [facility] ED Nursing Note Physician at patient bedside [facility] Jai Parks, EMT 11/19/222115 [facility] ED Nursing Note Pt changed into gowns. Protective Services secured pt's belongings. Pt was wanded. Cinthia Angulo RN 11/19/222110 [facility] ED Provider Noteon ED Provider [...] Patient states that she was seen at [place] last night for similar issues and was [...] Blood, Urine (more content not included)... Normal [facility] ED Provider Note Emergency Department Encounter [facility] EMERGENCY DEPT Patient: Smita Lebron : 1995 [...] for clarification.) LUKAS DARLING MD Acute Care [facility] Lukas Darling MD 11/19/222138 Normal [facility] Ethanol (Bld) [Mass/Vol]on 0 11-19-2022 Ethanol [Mass/Vol] g/dL 0.000 - 0 .010 g/dL [facility] Interpretation and review of laboratory results Normal [facility] Laboratory - Chemistry and C hemistry - challengeOrdered By: Zoë Post on 11-19-2022 Beta HCG ( test) Ql Negative Negative [facility] Comment on above: Please note: Very di lute urine specimens, as indicated by a low specific gravity, may not contain senior account representative levels of hCG. If is still suspected, a first morning urine specimen should be collected 48 hours later and tested. Beta HCG ( test) Ql (U) is the most common reason for HCG in urine, although choriocarcinoma, hydatidiform mole, and certain nontrophoblastic malignancies also result in detectable urinary HCG levels. Sensitivity = 20mIU/mL. [facility] - Microbiology an d Antimicrobial susceptibilityOrdered By: Bryanna Velasquez on 11-19-2022 SARS-CoV-2 (COVID-19) Ag IA.rapid Ql (Resp) Negative Negative [facility] Comment on above: A negative result do es not rule out the possibility of SARS-CoV-2 infection. NAAT-based methods should be considered for symptomatic patients presenting greater than seven days after onset of symptoms. Method: Lateral flow immunoassay. Fact sheets for healthcare providers and patients can be found at the following sites: https://www.fda.gov/media/483550/download https://www.fda.gov/media/256953/download No Panel InformationOrdered By: Zoë Post on 11-19-2022 [facility] No Panel Informationon 11-19 P Boyce 9 degrees [facility] NM Interval 135 ms [facility] QRS Boyce 64 degrees [facility] QRSD Interval 81 ms [facility] QT Interval 352 ms [facility] QTC Interval 446 ms [facility] T Wave Boyce -21 degrees [facility] Sinus rhythm Electronically Signed On 11-19-2022 23:58:23 EDT by Lukas Darling CV Lukas Mccormack MD - 11/19/2022 IMPRESSION: Sinus rhythm Electronically Signed On 11-19-2022 23:58:23 EDT by Lukas Darling [facility] PREGUon 11-19-2022 HCG ( test) Ql (U) Negative Normal [facility] ([place]) Comment on above: Performed By: #### T OXSC, PREGU #### Jarvis [address] [address] test (u) int Not detected Invalid Interpretation Code [facility] ([place]) Comment on above: Performed By: #### T OXSC, PREGU #### Jarvis [address] [address] SARS-CoV-2 (COVID-19) Ag IA. rapid Ql (Resp)Ordered By: Bryanna Velasquez on 11-19-2022 Interpretation and review of laboratory results Normal [facility] TOXSCon 11-19-2022 U Ampheta (AO) Negative Normal [facility] ([place]) Comment on above: Performed By: #### T OXSC, PREGU #### Jarvis [address] [address] U Sophia (AO) Negative Normal [facility] ([place]) Comment on above: Performed By: #### T OXSC, PREGU #### Jarvis [address] [address] U Raymond (AO) Positive Normal [facility] ([place]) Comment on above: Performed By: #### T OXSC, PREGU #### Jarvis [address] [address] U Cannab (AO) Negative Normal [facility] ([place]) Comment on above: Performed By: #### T OXSC, PREGU #### Jarvis [address] [address] U Cocaine (AO) Negative Normal [facility] ([place]) Comment on above: Performed By: #### T OXSC, PREGU #### Jarvis [address] [address] U Methadone (AO) Negative Normal [facility] ([place]) Comment on above: Performed By: #### T OXSC, PREGU #### Jarvis Campbell [address] [place] [address] U PCP (AO) Negative Normal [facility] ([place]) Comment on above: Performed By: #### T OXSC, PREGU #### Jarvis [address] [address] U TCA (AO) Positive Normal [facility] ([place]) Comment on above: Performed By: #### T OXSC, PREGU #### Jarvis [address] [address] Urine Opiates (AO) Negative Normal [facility] ([place]) Comment on above: Performed By: #### T OXSC, PREGU #### [address] [address] Urinalysis complete panel (U )Ordered By: Blanche Moody on 11-19-2022 Bilirubin Ql (U) Negative Negative mg/dL [facility] Clarity (U) Clear Clear [facility] Color (U) Light Yellow Lt. Yellow [facility] Glucose Ql (U) Normal Normal (<70) mg/dL [facility] Hemoglobin Ql (U) Negative Negative mg/dL [facility] Interpretation and review of laboratory results Abnormal [facility] Ketones (U) [Mass/Vol] 100 mg/dL Abnormal Negative [facility] Leukocyte esterase Test strip Ql (U) Negative Negative Skip/uL [facility] Nitrite Ql (U) Negative Negative [facility] th pH (U) 6.5 [pH] 5.0 - 8.0 pH [facility] Protein (U) [Mass/Vol] Negative Negative mg/d L [facility] Specific gravity (U) [Rel density] 1.020 1.005 - 1.030 [facility] Urobilinogen (U) [Mass/Vol] Normal Normal (0-1) mg/dL [facility] Vital signson 11-19-2022 Heart rate 96 /min bpm [facility] LABORATORYOrdered By: Javier Collins on 11-18-2022 [...] SS .GFRon 06-30-2022 GFR 81 ml/min/1.73sqm Normal [facility] ([place]) Comment on above: Result Comment: GFR Population [...] By: #### G FR, LIPID, CMP #### [address] [address] GFR Non- 67 ml/min/1.73sqm Normal [facility] ([place]) Comment on above: Result Comment: GFR Population [...] By: #### G FR, LIPID, CMP #### [address] [address] CMPon 06-30-2022 Albumin Level 4.1 G/dL Normal 3.5-5.0 [facility] ([place]) Comment on above: Performed By: #### G FR, LIPID, CMP #### [address] [address] Albumin/Globulin [Mass ratio] 1.4 {ratio} Normal 1.1-2.5 [facility] ([place]) Comment on above: Performed By: #### G FR, LIPID, CMP #### [address] [address] ALP [Catalytic activity/Vol] 73 U/L Normal 40-135 [facility] ([place]) Comment on above: Performed By: #### G FR, LIPID, CMP #### [address] [address] ALT [Catalytic activity/Vol] 25 U/L Normal 14-59 [facility] ([place]) Comment on above: Performed By: #### G FR, LIPID, CMP #### [address] [address] AST [Catalytic activity/Vol] 18 U/L Normal 10-40 [facility] ([place]) Comment on above: Performed By: #### G FR, LIPID, CMP #### [address] [address] Bili Total 0.6 mg/dL Normal 0.2-1.0 [facility] ([place]) Comment on above: Result Comment: Use of this assay is not recommended for patients undergoing treatment with eltrombopag due to the potential for falsely elevated results. Performed By: #### G FR, LIPID, CMP #### [place] [id number] BUN/Creatinine Ratio 12 ratio Normal 7-27 [facility] ([place]) Comment on above: Performed By: #### G FR, LIPID, CMP #### [address] [address] Calcium [Mass/Vol] 8.9 mg/dL Normal 8.4-10.2 [facility] ([place]) Comment on above: Performed By: #### G FR, LIPID, CMP #### [address] [address] Chloride [Moles/Vol] 102 mmol/L Normal 98-107 [facility] ([place]) Comment on above: Performed By: #### G FR, LIPID, CMP #### [address] [address] CO2 [Moles/Vol] 31 mmol/L High 22-29 [facility] ([place]) Comment on above: Performed By: #### G FR, LIPID, CMP #### [address] [address] Creatinine [Mass/Vol] 0.98 mg/dL Normal 0.55-1.02 [facility] ([place]) Comment on above: Performed By: #### G FR, LIPID, CMP #### [address] [address] Electrolyte Balance 7.0 mEq/L Normal 4.0-15.0 [facility] ([place]) Comment on above: Performed By: #### G FR, LIPID, CMP #### [address] [address] Globulin 2.9 G/dL Normal [facility] ([place]) Comment on above: Performed By: #### G FR, LIPID, CMP #### [address] [address] Glucose [Mass/Vol] 88 mg/dL Normal 70-105 [facility] ([place]) Comment on above: Performed By: #### G FR, LIPID, CMP #### [address] [address] Potassium [Moles/Vol] 4.6 mmol/L Normal 3.5-5.1 [facility] ([place]) Comment on above: Performed By: #### G FR, LIPID, CMP #### [address] [address] Sodium [Moles/Vol] 140 mmol/L Normal 136-145 [facility] ([place]) Comment on above: Performed By: #### G FR, LIPID, CMP #### [address] [address] Total Protein 7.0 G/dL Normal 6.4-8.2 [facility] ([place]) Comment on above: Performed By: #### G FR, LIPID, CMP #### [address] [address] Urea nitrogen [Mass/Vol] 12 mg/dL Normal 7-18 [facility] ([place]) Comment on above: Performed By: #### G FR, LIPID, CMP #### [address] [address] LABORATORYOrdered By: SYSTEM SYSTEM on 06-30-2022 Albumin [...] 06-30-2022 Cholesterol [Mass/Vol] 237 mg/dL High 0-200 [facility] ([place]) Comment on above: Result Comment: Chol esterol Reference Interval: Less than 200 Desirable 200-239 Borderline high risk 240 and above High risk Performed By: #### G FR, LIPID, CMP #### [address] [address] Cholesterol in HDL [Mass/Vol] 82 mg/dL High 40-60 [facility] ([place]) Comment on above: Performed By: #### G FR, LIPID, CMP #### [address] [address] Cholesterol in LDL [Mass/Vol] 150 mg/dL High 0-130 [facility] ([place]) Comment on above: Performed By: #### G FR, LIPID, CMP #### [address] [address] Triglyceride [Mass/Vol] 26 mg/dL Normal 0-150 A [facility] ([place]) Comment on above: Result Comment: Trig lyceride Reference Interval: Less than 150 Normal 150-199 Borderline high risk 200-499 High risk 500 or higher Very high risk Performed By: #### G FR, LIPID, CMP #### [address] [address] .Auto Diffon 06-09-2022 Basophil, Absolute 0.1 10 3/mcL Normal 0.0-0.2 [facility] ([place]) Comment on above: Performed By: #### G FR, LIPID, CMP #### [address] [address] Basophils/100 WBC (Bld) 0.8 % Normal 0.0-2.5 A [facility] ([place]) Comment on above: Performed By: #### G FR, LIPID, CMP #### [address] [address] Eosinophil, Absolute 0.1 10 3/mcL Normal 0.0-0.4 [facility] ([place]) Comment on above: Performed By: #### G FR, LIPID, CMP #### [address] [address] Eosinophils/100 WBC (Bld) 1.5 % Normal 0.0-7.0 [facility] ([place]) Comment on above: Performed By: #### G FR, LIPID, CMP #### [address] [address] Lymphocyte, Absolute 2.3 10 3/mcL Normal 0.8-3.9 [facility] ([place]) Comment on above: Performed By: #### G FR, LIPID, CMP #### [address] [address] Lymphocytes/100 WBC (Bld) 31.4 % Normal 10.0-50.0 [facility] ([place]) Comment on above: Performed By: #### G FR, LIPID, CMP #### [address] [address] Monocyte, Absolute 0.7 10 3/mcL Normal 0.2-1.0 [facility] ([place]) Comment on above: Performed By: #### G FR, LIPID, CMP #### [address] [address] Monocytes/100 WBC (Bld) 9.7 % Normal 1.7-13.0 [facility] ([place]) Comment on above: Performed By: #### G FR, LIPID, CMP #### [address] [address] Neutrophils/100 WBC (Bld) 56.6 % Normal 37.0-80.0 [facility] ([place]) Comment on above: Performed By: #### G FR, LIPID, CMP #### [address] [address] .NEUABSon 06-09-2022 Neutrophil, Absolute 4.2 10 3/mcL Normal 2.9-6.2 [facility] ([place]) Comment on above: Performed By: #### G FR, LIPID, CMP #### [address] [address] CBCon 06-09-2022 Erythrocyte distribution width (RBC) [Ratio] 13.5 % Normal 11.5-14.5 [facility] ([place]) Comment on above: Order Comment: PLEAS E do STAT Performed By: #### G FR, LIPID, CMP #### [place] [address] Hematocrit (Bld) [Volume fraction] 42.8 % Normal 37.0-47.0 [facility] ([place]) Comment on above: Order Comment: PLEAS E do STAT Performed By: #### G FR, LIPID, CMP #### [place] [address] Hgb 14.7 G/dL Normal 12.0-16.0 [facility] ([place]) Comment on above: Order Comment: PLEAS E do STAT Performed By: #### G FR, LIPID, CMP #### [address] [address] MCH (RBC) [Entitic mass] 30.5 pg Normal 27.0-31.2 [facility] ([place]) Comment on above: Order Comment: PLEAS E do STAT Performed By: #### G FR, LIPID, CMP #### [address] [address] MCHC 34.4 G/dL Normal 33.0-37.0 [facility] ([place]) Comment on above: Order Comment: PLEAS E do STAT Performed By: #### G FR, LIPID, CMP #### [address] [address] MCV (RBC) [Entitic vol] 88.6 fL Normal 80.0-94.0 A [facility] ([place]) Comment on above: Order Comment: PLEAS E do STAT Performed By: #### G FR, LIPID, CMP #### [address] [address] Platelet 299 10 3/mcL Normal 130-400 [facility] ([place]) Comment on above: Order Comment: PLEAS E do STAT Performed By: #### G FR, LIPID, CMP #### [address] [address] Platelet mean volume (Bld) [Entitic vol] 8.1 fL Normal 7.4-10.4 [facility] ([place]) Comment on above: Order Comment: PLEAS E do STAT Performed By: #### G FR, LIPID, CMP #### [address] [address] RBC 4.82 10 6/mcL Normal 4.20-5.40 [facility] ([place]) Comment on above: Order Comment: PLEAS E do STAT Performed By: #### G FR, LIPID, CMP #### [address] [address] WBC 7.4 10 3/mcL Normal 4.6-10.8 [facility] ([place]) Comment on above: Order Comment: PLEAS E do STAT Performed By: #### G FR, LIPID, CMP #### [address] [address] LABORATORYOrdered By: Javier Landers on 06-09-2022 Basophil, [...] AO Workflow SS PELVIC US WHIon 05-09-2022 [facility] Lab Report: Comprehensive Nd tabolic Profilon 10-27-2016 Albumin mass conc 4.0 g/dL 3.4-5.0 [facility] Work Phone: Albumin/Globulin mass ratio 1.2 {ratio} 0.9-2.4 [facility] Work Phone: ALP enzyme act/vol (Bld) 88 U/L 45-117 [facility] Work Phone: ALT enzyme act/vol 20 [...] Phone: CO2 ppres (BldV) 25.0 mmol/L 21.0-32.0 [facility] Work Phone: Creatinine mass conc 0.82 mg/dL 0.55-1.[address] [facility] Work Phone: EST GFR - AA 110 mL/min >60 [facility] Work Phone: GFR/1.73 sq M predicted among non-blacks MDRD vol rate/area (S/P/Bld) 91 mL/min/{1.73_m2} >60 [facility] Work Phone: Globulin mass conc (S) 3.2 g/dL 2.3-3.5 [facility] Work Phone: Glucose mass conc 82 mg/dL 70-110 [facility] Work Phone: Potassium molar conc 4.0 mmol/L 3.5-5.[address] [facility] Work Phone: Protein mass conc 7.2 g/dL 6.4-8.2 [facility] Work Phone: Sodium molar conc 140 mmol/L 136-145 [facility] Work Phone: Urea nitrogen mass conc 12 mg/dL 7-18 [facility] Work Phone: Urea nitrogen/Creatinine mass ratio 14.6 RATIO 10-20 [facility] Work Phone: Lab Report: Lipid Profileon 10-27-2016 Cholesterol in HDL mass conc 58 mg/dL [facility] Work Phone: Cholesterol in LDL mass conc 85 mg/dL 0-130 [facility] Work Phone: Cholesterol mass conc 152 mg/dL [address] [facility] Work Phone: Lipoprotein.pre-beta mass conc 9 mg/dL 5-40 [facility] Work Phone: Triglyceride mass conc 45 mg/dL [facility] Work Phone: Lab Report: Thyroid Stim Hor diana (TSH)on 10-27-2016 Thyrotropin Qn 1.25 u[iU]/mL 0.358-3.74 [facility] Work Phone: Office Visiton 09-26-2016 Adolescent depression screening assessment Adolescent depression screening assessment Invalid Interpretation Code [facility] Work Phone: Adult depression screening assessment Adult depression screening assessment Invalid Interpretation Code [facility] Work Phone: Adult depression screening assessment Adolescent depression screening assessment [facility] Work Phone: Documentation of current medications (procedure) Done Invalid Interpretation Code [facility] Work Phone: PHQ-9 quick depression assessment panel [Reported.PHQ] Adult depression screening assessment [facility] Work Phone: Protein mass conc Done [facility] Work Phone: Tobacco smoking status NHIS Never [facility] Work Phone: Tobacco smoking status SDIS Never smoker [facility] Work Phone: Tobacco use [facility] Never smoker Invalid Interpretation Code [facility] Work Phone: Vital Signs Date Time Vital Sign Value Performing Clinician Facility 12-10-2024 14:38-0400 Body mass index (BMI) [Ratio] 30.67 kg/m2 Camelia Herrera APRN.CNM Work Phone: [facility] 12-10-2024 14:38-0400 Body weight 86.18 kg Camelia Herrera APRN.CNM Work Phone: [facility] 12-10-2024 14:38-0400 Diastolic blood pressure 60 mm[Hg] Camelia Herrera TUCK POINTER.CNM Work Phone: [facility] 12-10-2024 14:38-0400 Systolic blood pressure 120 mm[Hg] Camelia Herrera TUCK POINTER.CNM Work Phone: [facility] 11-26-2024 14:40-0400 Body mass index (BMI) [Ratio] 30.21 kg/m2 Hoda Plotts TUCK POINTER.CNM Work Phone: [facility] 11-26-2024 14:40-0400 Body weight 84.91 kg Hoda Choits TUCK POINTER.CNM Work Phone: [facility] 11-26-2024 14:40-0400 Diastolic blood pressure 60 mm[Hg] Hoda Plotts TUCK POINTER.CNM Work Phone: [facility] 11-26-2024 14:40-0400 Systolic blood pressure 106 mm[Hg] Hoda Plotts TUCK POINTER.CNM Work Phone: [facility] 11-12-2024 14:32-0400 Body mass index (BMI) [Ratio] 29.7 kg/m2 Camelia Herrera TUCK POINTER.CNM Work Phone: [facility] 11-12-2024 14:32-0400 Body weight 83.46 kg Camelia Herrera TUCK POINTER.CNM Work Phone: [facility] 11-12-2024 14:32-0400 Diastolic blood pressure 78 mm[Hg] Camelia Herrera TUCK POINTER.CNM Work Phone: [facility] 11-12-2024 14:32-0400 Systolic blood pressure 128 mm[Hg] Camelia Herrera TUCK POINTER.CNM Work Phone: [facility] 10-28-2024 11:13-0400 Body mass index (BMI) [Ratio] 28.89 kg/m2 Laurie Serra TUCK POINTER.TUMBLING BARREL PAINTER Work Phone: [facility] 10-28-2024 11:13-0400 Body weight 81.19 kg Laurie Serra TUCK POINTER.TUMBLING BARREL PAINTER Work Phone: [facility] 10-28-2024 11:13-0400 Diastolic blood pressure 66 mm[Hg] Laurie Serra TUCK POINTER.TUMBLING BARREL PAINTER Work Phone: [facility] 10-28-2024 11:13-0400 Heart rate 70 /min Laurie Serra TUCK POINTER.TUMBLING BARREL PAINTER Work Phone: [facility] 10-28-2024 11:13-0400 SaO2% (BldA) [Mass fraction] 98 % Laurie Elba TUCK POINTER.TUMBLING BARREL PAINTER Work Phone: [facility] 10-28-2024 11:13-0400 Systolic blood pressure 113 mm[Hg] Laurie Serra TUCK POINTER.TUMBLING BARREL PAINTER Work Phone: [facility] 10-22-2024 14:35-0400 Body mass index (BMI) [Ratio] 28.79 kg/m2 Hoda Plotts TUCK POINTER.CNM Work Phone: [facility] 10-22-2024 14:35-0400 Body weight 80.92 kg Hoda Plotts TUCK POINTER.CNM Work Phone: [facility] 10-22-2024 14:35-0400 Diastolic blood pressure 60 mm[Hg] Hoda Plotts TUCK POINTER.CNM Work Phone: [facility] 10-22-2024 14:35-0400 Systolic blood pressure 100 mm[Hg] Hoda Plotts TUCK POINTER.CNM Work Phone: [facility] 10-08-2024 09:16-0400 Body mass index (BMI) [Ratio] 28.25 kg/m2 Hoda Plotts TUCK POINTER.CNM Work Phone: [facility] 10-08-2024 09:16-0400 Body weight 79.38 kg Hoda Plotts TUCK POINTER.CNM Work Phone: [facility] 10-08-2024 09:16-0400 Diastolic blood pressure 60 mm[Hg] Hoda Plotts TUCK POINTER.CNM Work Phone: [facility] 10-08-2024 09:16-0400 Systolic blood pressure 110 mm[Hg] Hoda Plotts TUCK POINTER.CNM Work Phone: [facility] 09-10-2024 15:13-0400 Body mass index (BMI) [Ratio] 27.6 kg/m2 Hoda Plotts TUCK POINTER.CNM Work Phone: [facility] 09-10-2024 15:13-0400 Body weight 77.56 kg Hoda Plotts TUCK POINTER.CNM Work Phone: [facility] 09-10-2024 15:13-0400 Diastolic blood pressure 66 mm[Hg] Hoda Plotts TUCK POINTER.CNM Work Phone: [facility] 09-10-2024 15:13-0400 Systolic blood pressure 112 mm[Hg] Hoda Plotts TUCK POINTER.CNM Work Phone: [facility] 08-15-2024 14:34-0400 Body mass index (BMI) [Ratio] 27.6 kg/m2 Camelia Herrera TUCK POINTER.CNM Work Phone: [facility] 08-15-2024 14:34-0400 Body weight 77.56 kg Camelia Herrera TUCK POINTER.CNM Work Phone: [facility] 08-15-2024 14:34-0400 Diastolic blood pressure 66 mm[Hg] Camelia Herrera TUCK POINTER.CNM Work Phone: [facility] 08-15-2024 14:34-0400 Systolic blood pressure 108 mm[Hg] Camelia Herrera TUCK POINTER.CNM Work Phone: [facility] 07-18-2024 08:23-0400 Body height 167.6 cm Yasmeen Alcove TUCK POINTER.TUMBLING BARREL PAINTER Work Phone: [facility] 07-18-2024 08:23-0400 Body mass index (BMI) [Ratio] 27.44 kg/m2 Yasmeen Alcove TUCK POINTER.TUMBLING BARREL PAINTER Work Phone: [facility] 07-18-2024 08:23-0400 Body weight 77.11 kg Yasmeen Alcove TUCK POINTER.TUMBLING BARREL PAINTER Work Phone: [facility] 07-18-2024 08:23-0400 Diastolic blood pressure 68 mm[Hg] Yasmeen Alcove TUCK POINTER.TUMBLING BARREL PAINTER Work Phone: [facility] 07-18-2024 08:23-0400 Systolic blood pressure 122 mm[Hg] Yasmeen Jody TUCK POINTER.TUMBLING BARREL PAINTER Work Phone: [facility] 06-13-2024 15:23-0400 Body mass index (BMI) [Ratio] 26.79 kg/m2 Toña Blankenship MD Work Phone: [facility] 06-13-2024 15:23-0400 Body weight 75.3 kg Toña Blankenship MD Work Phone: [facility] 06-13-2024 15:23-0400 Diastolic blood pressure 76 mm[Hg] Toña Blankenship MD Work Phone: [facility] 06-13-2024 15:23-0400 Systolic blood pressure 114 mm[Hg] Toña Blankenship MD Work Phone: [facility] 05-07-2024 10:50-0500 Body mass index (BMI) [Ratio] 27.12 kg/m2 Brennan Head TUCK POINTER.TUMBLING BARREL PAINTER Work Phone: [facility] 05-07-2024 10:50-0500 Body weight 76.2 kg Brennan Hazbigniew TUCK POINTER.TUMBLING BARREL PAINTER Work Phone: [facility] 05-07-2024 10:50-0500 Diastolic blood pressure 60 mm[Hg] Brennan Haury TUCK POINTER.TUMBLING BARREL PAINTER Work Phone: [facility] 05-07-2024 10:50-0500 Systolic blood pressure 110 mm[Hg] Brennan Haury TUCK POINTER.TUMBLING BARREL PAINTER Work Phone: [facility] 03-28-2024 09:33-0500 Body mass index (BMI) [Ratio] 27.76 kg/m2 Camelia Herrera TUCK POINTER.CNM Work Phone: [facility] 03-28-2024 09:33-0500 Body weight 78.02 kg Camelia Javier TUCK POINTER.CNM Work Phone: [facility] 03-28-2024 09:33-0500 Diastolic blood pressure 74 mm[Hg] Camelia Herrera TUCK POINTER.CNM Work Phone: [facility] 03-28-2024 09:33-0500 Systolic blood pressure 110 mm[Hg] Camelia Herrera TUCK POINTER.CNM Work Phone: [facility] 02-04-2024 14:36-0500 Body height 167.6 cm Camelia Herrera TUCK POINTER.CNM Work Phone: [facility] 02-04-2024 14:36-0500 Body mass index (BMI) [Ratio] 27.6 kg/m2 Camelia Herrera TUCK POINTER.CNM Work Phone: [facility] 02-04-2024 14:36-0500 Body weight 77.56 kg Camelia Javier TUCK POINTER.CNM Work Phone: [facility] 02-04-2024 14:36-0500 Diastolic blood pressure 68 mm[Hg] Camelia Herrera TUCK POINTER.CNM Work Phone: [facility] 02-04-2024 14:36-0500 Systolic blood pressure 114 mm[Hg] Camelia Herrera TUCK POINTER.CNM Work Phone: [facility] 10-30-2023 10:03-0400 Body mass index (BMI) [Ratio] 27.28 kg/m2 Camelia Herrera TUCK POINTER.CNM Work Phone: [facility] 10-30-2023 10:03-0400 Body weight 76.66 kg Camelia Herrera TUCK POINTER.CNM Work Phone: [facility] 10-30-2023 10:03-0400 Diastolic blood pressure 64 mm[Hg] Camelia Herrera TUCK POINTER.CNM Work Phone: [facility] 10-30-2023 10:03-0400 Systolic blood pressure 102 mm[Hg] Camelia Herrera TUCK POINTER.CNM Work Phone: [facility] 06-20-2023 14:35-0400 Body weight 74.39 kg Camelia Herrera TUCK POINTER.CNM Work Phone: [facility] 06-20-2023 14:35-0400 Diastolic blood pressure 68 mm[Hg] Camelia Herrera TUCK POINTER.CNM Work Phone: [facility] 06-20-2023 14:35-0400 Systolic blood pressure 110 mm[Hg] Camelia Herrera TUCK POINTER.CNM Work Phone: [facility] 01-29-2023 14:54-0400 Body height 167.6 cm Camelia Herrera TUCK POINTER.CNM Work Phone: [facility] 01-29-2023 14:54-0400 Body weight 70.67 kg Camelia Herrera TUCK POINTER.CNM Work Phone: [facility] 01-29-2023 14:54-0400 Diastolic blood pressure 64 mm[Hg] Camelia Herrera TUCK POINTER.CNM Work Phone: [facility] 01-29-2023 14:54-0400 Systolic blood pressure 108 mm[Hg] Camelia Herrera TUCK POINTER.CNM Work Phone: [facility] 01-09-2023 16:32-0400 Body weight 68.95 kg Laurie Rajguru TUCK POINTER.TUMBLING BARREL PAINTER Work Phone: [facility] 01-09-2023 16:32-0400 Diastolic blood pressure 80 mm[Hg] Laurie Rajguru TUCK POINTER.TUMBLING BARREL PAINTER Work Phone: [facility] 01-09-2023 16:32-0400 Heart rate 80 /min Laurie Rajguru TUCK POINTER.TUMBLING BARREL PAINTER Work Phone: [facility] 01-09-2023 16:32-0400 Respiratory rate 16 /min Laurie Rajguru TUCK POINTER.TUMBLING BARREL PAINTER Work Phone: [facility] 01-09-2023 16:32-0400 Systolic blood pressure 118 mm[Hg] Laurie Rajguru TUCK POINTER.TUMBLING BARREL PAINTER Work Phone: [facility] 01-02-2023 14:58-0400 Body weight 68.31 kg Laurie Rajguru TUCK POINTER.TUMBLING BARREL PAINTER Work Phone: [facility] 01-02-2023 14:58-0400 Diastolic blood pressure 66 mm[Hg] Laurie Rajguru TUCK POINTER.TUMBLING BARREL PAINTER Work Phone: [facility] 01-02-2023 14:58-0400 Heart rate 84 /min Laurie Rajguru TUCK POINTER.TUMBLING BARREL PAINTER Work Phone: [facility] 01-02-2023 14:58-0400 Systolic blood pressure 118 mm[Hg] Laurie Rajguru TUCK POINTER.TUMBLING BARREL PAINTER Work Phone: [facility] 11-21-2022 14:29-0400 Body weight 70.31 kg Laurie Rajguru TUCK POINTER.TUMBLING BARREL PAINTER Work Phone: [facility] 11-21-2022 14:29-0400 Diastolic blood pressure 78 mm[Hg] Laurie Rajguru TUCK POINTER.TUMBLING BARREL PAINTER Work Phone: [facility] 11-21-2022 14:29-0400 Heart rate 80 /min Laurie Rajguru TUCK POINTER.TUMBLING BARREL PAINTER Work Phone: [facility] 11-21-2022 14:29-0400 Systolic blood pressure 132 mm[Hg] Laurie Rajguru TUCK POINTER.TUMBLING BARREL PAINTER Work Phone: [facility] 11-20-2022 00:59-0400 Respiratory rate 18 /min Lukas Darling MD Work Phone: [employer] 11-20-2022 00:54-0400 Body temperature 98.01 [degF] Lukas Darling MD Work Phone: [employer] 11-20-2022 00:54-0400 Diastolic blood pressure 90 mm[Hg] Lukas Darling MD Work Phone: [employer] 11-20-2022 00:54-0400 Heart rate 125 /min Lukas Darling MD Work Phone: [employer] 11-20-2022 00:54-0400 SaO2% (BldA) [Mass fraction] 100 % Lukas Darling MD Work Phone: [facility] 11-20-2022 00:54-0400 Systolic blood pressure 133 mm[Hg] Lukas Darling MD Work Phone: [facility] 11-19-2022 00:40-0400 Diastolic Blood Pressure Non-Invasive 79 1 PRINCE RAYA MD [facility] 11-19-2022 00:40-0400 Heart rate 68 /min PRINCE RAYA MD [facility] 11-19-2022 00:40-0400 Reason For Taking VItal Signs PRINCE RAYA MD [facility] 11-19-2022 00:40-0400 Respiratory rate 15 /min PRINCE RAYA MD [facility] 11-19-2022 00:40-0400 Systolic Blood Pressure Non-Invasive 128 1 PRINCE RAYA MD [facility] 11-18-2022 23:30-0400 Blood Pressure Location PRINCE RAYA MD [facility] 11-18-2022 23:30-0400 Body temperature 97.88 [degF] PRINCE RAYA MD [facility] 11-18-2022 23:30-0400 Diastolic Blood Pressure Non-Invasive 96 1 PRINCE RAYA MD [facility] 11-18-2022 23:30-0400 Heart rate 75 /min PRINCE RAYA MD [facility] 11-18-2022 23:30-0400 Respiratory rate 16 /min PRINCE RAYA MD [facility] 11-18-2022 23:30-0400 Systolic Blood Pressure Non-Invasive 149 1 PRINCE RAYA MD [facility] 05-02-2022 14:14-0500 Body height 167.6 cm Camelia Herrera TUCK POINTER.CNM Work Phone: [facility] 05-02-2022 14:14-0500 Body weight 73.21 kg Camelia Herrera TUCK POINTER.CNM Work Phone: [facility] 05-02-2022 14:14-0500 Diastolic blood pressure 70 mm[Hg] Camelia Herrera TUCK POINTER.CNM Work Phone: [facility] 05-02-2022 14:14-0500 Systolic blood pressure 120 mm[Hg] Camelia Herrera APRN.CNM Work Phone: [facility] 09-26-2016 15:30-0400 BMI (Body Mass Index) 25.78 kg/m2 [facility] Work Phone: 09-26-2016 15:30-0400 Body Temperature 98.6 [degF] [facility] Work Phone: 09-26-2016 15:30-0400 BP Diastolic 78 mm[Hg] [facility] Work [...] 15:30-0400 Weight 73.57 kg Migdalia Calderon MITCHEL [facility] Work Phone: Encounters Encounter Date Encounter Type Care Provider Facility Start: 01-07-2025 End: 01-07-2025 ambulatory PRATIMA ONTIVEROS Facility:[facility] Start: 01-06-2025 End: 01-10-2025 ambulatory ROBYN Robert VAZQUEZ DO Facility:[facility] Start: 01-06-2025 End: 01-10-2025 Encounter for general adult medical examination without abnormal findings ROBYN VAZQUEZ DO Facility:[facility] Start: 01-06-2025 End: 01-10-2025 Outreach Lab ROBYN Robert VAZQUEZ DO [facility] Start: 01-02-2025 End: 01-02-2025 ambulatory LAURIE SERRA Facility:[facility] Start: 12-24-2024 End: 12-24-2024 ambulatory PRATIMA ONTIVEROS Facility:[facility] Start: 12-10-2024 End: 12-10-2024 ambulatory CAMELIA HERRERA Facility:[facility] Start: 12-10-2024 End: 12-10-2024 Patient encounter procedure Camelia Herrera APRN.CNM Work Phone: OB/Gynecology Comment on above: Supervision of yu l first , antepartum (HCC) (Primary Dx); 29 weeks gestation of (HCC); History of depression; History of anxiety Start: 11-26-2024 End: 11-26-2024 Patient encounter procedure Hoda Hager TUCK POINTER.CNM Work Phone: OB/Gynecology Comment on above: 27 weeks gestation o f (HCC) (Primary Dx); Supervision of normal first , antepartum (HCC); Other depression; History of depression Start: 11-26-2024 End: 11-26-2024 ambulatory PRATIMA ONTIVEROS Facility:[facility] Start: 11-20-2024 End: 11-24-2024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 2:45 PM EST Office Visit OB/Gynecology [address] [place] [address] Camleia Herrera APRN.CNM [address] [place] [address] Annual exam OB/Gynecology Comment on above: Annual exam Start: 01-30-2024 End: 01-30-2024 Patient encounter procedure 01/30/2024 4:00 PM EDT Office Visit OB/Gynecology [address] [place] [address] Camelia Herrera APRN.CNRobert [address] [place] [address] Annual exam OB/Gynecology Comment on above: Annual exam Start: 01-25-2024 End: 01-25-2024 Follow-up encounter 01/25/2024 2:00 PM EDT Distance [facility] Psychiatry [address] [place] [address] Laurie Serra TUCK POINTER.TUMBLING BARREL PAINTER [address] [place] [address] follow up Psychiatry Comment on above: follow up Start: 12-27-2023 End: 12-27-2023 Patient encounter procedure 12/27/2023 2:45 PM EDT Office Visit OB/Gynecology [address] [place] [address] Camelia Herrera APRN.CN [address] [address] Annual OB/Gynecology Comment on above: Annual Start: 12-18-2023 End: 03-18-2024 Follitropin [Units/volume] in Serum or Plasma [facility] Work Phone: Comment on above: Expected: 12/18/2023 , Expires: 03/18/2024 Start: 12-07-2023 End: 03-07-2024 Estradiol (E2) [Mass/volume] in Serum or Plasma ESTRADIOL-17B BLD Lab Routine Encounter for preconception consultation Expected: 12/07/2023 (Approximate), Expires: 03/07/2024 [facility] Comment on above: Expected: 12/07/2023 (Approximate), Expires: 03/07/2024 Start: 12-02-2023 Covid-19 Vaccine ( season) Covid-19 Vaccine ( season) [facility] Start: 12-02-2023 Covid-19 Vaccine ( season) Covid-19 Vaccine ( season) [facility] Start: 12-02-2023 Influenza vaccination [facility] Start: 11-07-2023 End: 02-06-2024 Progesterone [Mass/volume] in Serum or Plasma PROGESTERONE Lab Routine Encounter for preconception consultation Expected: 11/07/2023 (Approximate), Expires: 02/06/2024 [facility] [facility] Work Phone: Comment on above: Expected: 11/07/2023 (Approximate), Expires: 02/06/2024 Start: 11-06-2023 End: 02-05-2024 Hemoglobin A1c in Blood HEMOGLOBIN A1C Lab Routine Encounter for preconception consultation Expected: 11/06/2023, Expires: 02/05/2024 [facility] Comment on above: Expected: 11/06/2023 , Expires: 02/05/2024 Start: 11-06-2023 End: 02-05-2024 RUBELLA IGG ANTIBODY RUBELLA IGG ANTIBODY Lab Routine Encounter for preconception consultation Expected: 11/06/2023, Expires: 02/05/2024 [facility] Comment on above: Expected: 11/06/2023 , Expires: 02/05/2024 Start: 11-06-2023 End: 02-05-2024 Thyrotropin [Units/volume] in Serum or Plasma THYROID STIMULATING HORMONE Lab Routine Encounter for preconception consultation Expected: 11/06/2023, Expires: 02/05/2024 [facility] Comment on above: Expected: 11/06/2023 , Expires: 02/05/2024 Start: 11-06-2023 End: 02-05-2024 VARICELLA ZOSTER IGG VARICELLA ZOSTER IGG Lab Routine Encounter for preconception consultation Expected: 11/06/2023, Expires: 02/05/2024 [facility] Comment on above: Expected: 11/06/2023 , Expires: 02/05/2024 Start: 11-06-2023 End: 02-05-2024 WHIIVF ANTI MULLERIAN HORMONE WHIIVF ANTI MULLERIAN HORMONE Lab Routine Encounter for preconception consultation Expected: 11/06/2023, Expires: 02/05/2024 [facility] Comment on above: Expected: 11/06/2023 , Expires: 02/05/2024 Start: 10-30-2023 End: 10-30-2023 Patient encounter procedure 10/30/2023 9:30 AM EDT Office Visit OB/Gynecology [address] [place] [address] Camelia Herrera APRN.[facility] [address] [place] [address] discuss options for Trying to conceive OB/Gynecology Comment on above: discuss options for Trying to conceive Start: 10-18-2023 End: 10-18-2023 Follow-up encounter 10/18/2023 9:[address] [facility] Psychiat[facility] [address] [place] [address] Laurie Serra, TUCK POINTER.TUMBLING BARREL PAINTER [address] [place] [address] 3 MONTH FOLLOW UP Psychiatry Comment on above: 3 MONTH FOLLOW UP Start: 08-17-2023 End: 11-16-2023 Choriogonadotropin.beta subunit [Units/volume] in Serum or Plasma HCG QUANTITATIVE Lab Routine Missed menses Expected: 08/17/2023, Expires: 11/16/2023 [facility] Work Phone: Comment on above: Expected: 08/17/2023 , Expires: 11/16/2023 Start: 06-17-2023 PAP TESTING PAP TESTING [facility] Start: 06-17-2023 Screening for malign ant neoplasm of cervix Cervical Cancer Screening [facility] Start: 2023 Screening for malign ant neoplasm of cervix HPV Testing [facility] Start: 04-02-2023 Depression Assessment Depression Ass essment [facility] Start: 12-01-2022 Covid-19 Vaccine () Covid-19 Vaccine () [facility] Start: 12-01-2022 Influenza vaccination [facility] Start: 05-26-2022 End: 05-26-2023 THYROID PEROXIDASE ANTIBODY BLOOD THYROID PEROXIDASE ANTIBODY BLOOD Lab Routine Low T4 Expected: 05/26/2022, Expires: 05/26/2023 [facility] Work Phone: Comment on above: Expected: 05/26/2022 , Expires: 05/26/2023 Start: 05-26-2022 End: 05-26-2023 Thyrotropin [Units/volume] in Serum or Plasma TSH BLD Lab Routine Low T4 Expected: 05/26/2022, Expires: 05/26/2023 [facility] Work Phone: Comment on above: Expected: 05/26/2022 , Expires: 05/26/2023 Start: 05-26-2022 End: 05-26-2023 Thyroxine (T4) [Mass/volume] in Serum or Plasma T4/THYROXINE BLOOD Lab Routine Low T4 Expected: 05/26/2022, Expires: 05/26/2023 [facility] Work Phone: Comment on above: Expected: 05/26/2022 , Expires: 05/26/2023 Start: 05-26-2022 End: 05-26-2023 Thyroxine (T4) free [Mass/volume] in Serum or Plasma T4 FREE/FREE THYROX Lab Routine Low T4 Expected: 05/26/2022, Expires: 05/26/2023 [facility] Work Phone: Comment on above: Expected: 05/26/2022 , Expires: 05/26/2023 Start: 05-26-2022 End: 05-26-2023 Triiodothyronine (T3) [Mass/volume] in Serum or Plasma T3 BLD Lab Routine Low T4 Expected: 05/26/2022, Expires: 05/26/2023 [facility] Work Phone: Comment on above: Expected: 05/26/2022 , Expires: 05/26/2023 Start: 05-26-2022 End: 05-26-2023 Triiodothyronine (T3) Free [Mass/volume] in Serum or Plasma T3 FREE BLD Lab Routine Low T4 Expected: 05/26/2022, Expires: 05/26/2023 [facility] Work Phone: Comment on above: Expected: 05/26/2022 , Expires: 05/26/2023 Start: 05-02-2022 End: 05-02-2023 PELVIC US WHI PELVIC US WHI Anc Imaging Routine Irregular menstrual cycle Expected: 05/02/2022, Expires: 05/02/2023 [facility] Work Phone: Comment on above: Expected: 05/02/2022 , Expires: 05/02/2023 Start: 05-02-2022 End: 07-02-2022 Prolactin [Mass/volume] in Serum or Plasma PROLACTIN BLD Lab Routine Irregular menstrual cycle Expected: 05/02/2022, Expires: 07/02/2022 [facility] Work Phone: Comment on above: Expected: 05/02/2022 , Expires: 07/02/2022 Start: 05-02-2022 End: 05-02-2023 THYROID PEROXIDASE ANTIBODY BLOOD THYROID PEROXIDASE ANTIBODY BLOOD Lab Routine Irregular menstrual cycle Expected: 05/02/2022, Expires: 05/02/2023 [facility] Work Phone: Comment on above: Expected: 05/02/2022 , Expires: 05/02/2023 Start: 05-02-2022 End: 05-02-2023 Thyrotropin [Units/volume] in Serum or Plasma TSH BLD Lab Routine Irregular menstrual cycle Expected: 05/02/2022, Expires: 05/02/2023 [facility] Work Phone: Comment on above: Expected: 05/02/2022 , Expires: 05/02/2023 Start: 05-02-2022 End: 05-02-2023 Thyroxine (T4) [Mass/volume] in Serum or Plasma T4/THYROXINE BLOOD Lab Routine Irregular menstrual cycle Expected: 05/02/2022, Expires: 05/02/2023 [facility] Work Phone: Comment on above: Expected: 05/02/2022 , Expires: 05/02/2023 Start: 05-02-2022 End: 05-02-2023 Thyroxine (T4) free [Mass/volume] in Serum or Plasma T4 FREE/FREE THYROX Lab Routine Irregular menstrual cycle Expected: 05/02/2022, Expires: 05/02/2023 [facility] Work Phone: Comment on above: Expected: 05/02/2022 , Expires: 05/02/2023 Start: 05-02-2022 End: 05-02-2023 Triiodothyronine (T3) [Mass/volume] in Serum or Plasma T3 BLD Lab Routine Irregular menstrual cycle Expected: 05/02/2022, Expires: 05/02/2023 [facility] Work Phone: Comment on above: Expected: 05/02/2022 , Expires: 05/02/2023 Start: 05-02-2022 End: 05-02-2023 Triiodothyronine (T3) Free [Mass/volume] in Serum or Plasma T3 FREE BLD Lab Routine Irregular menstrual cycle Expected: 05/02/2022, Expires: 05/02/2023 [facility] Work Phone: Comment on above: Expected: 05/02/2022 , Expires: 05/02/2023 Start: 04-02-2022 DEPRESSION ASSESSMENT DEPRESSION ASS ESSMENT [facility] Start: 2020 HPV Vaccine (1 - 3-d ose SCDM series) HPV Vaccine (1 - 3-dose SCDM series) [facility] Start: 09-26-2016 End: 10-27-2016 *CMP Complete Metabolic Panel *CMP Complete Metabolic Panel [facility] Work Phone: Start: 09-26-2016 End: 10-27-2016 Lipid panel [AGGREGATE] *Lipid Profile [facility] Work Phone: Start: 09-26-2016 End: 10-27-2016 Thyroid stimulating hormone (TSH) *TSH [facility] Work Phone: Start: 2014 Screening for malign ant neoplasm of cervix Pap Smear [facility] Start: 2012 Urine microalbumin profile [facility] Start: 2011 Anxiety Screening Anxiety Screening [facility] Start: 2011 Depression Screening Depression Scre ing [facility] Start: 2011 HEPATITIS C SCREENING HEPATITIS C [facility] Start: 2011 Hepatitis C screening Hepatitis C [facility] Start: 2011 HIV SCREENING HIV SCREENING [facility] Start: 2011 HIV screening HIV Screening [facility] Start: 03-23-2009 Varicella vaccination Varicell a Vaccines (1 of 2 - 2-dose childhood series) [facility] Start: 2005 Depression Screening Depression Scre ening [facility] Start: 1993 COVID-19 VACCINE (#1) COVID-19 VACCI NE (#1) [facility] Start: 1993 HEPATITIS B (1 of 3 - 3-dose series) HEPATITIS B (1 of 3 - 3-dose series) [facility] Start: 1993 Hepatitis B Vaccine (1 of 3 - 3-dose series) Hepatitis B Vaccine (1 of 3 - 3-dose series) [facility] Start: 1993 HIV screening HIV Screening [facility] Bacteria identified in Urine by Culture BACTERIAL CULTURE, URINE Microbiology Routine Dysuria Ordered: 05/07/2024 [facility] Work Phone: Comment on above: Ordered: 05/07/2024 Bacteria identified in Urine by Culture BACTERIAL CULTURE, URINE Microbiology Routine with uncertain dates in first trimester ([facility]) care, first in first trimester ([facility]) 07/18/2024 9:07 AM EDT [facility] BACTERIAL VAGINOSIS NAAT BACTERI AL VAGINOSIS NAAT Lab Routine Vaginal discharge 03/28/2024 3:12 PM EST [facility] MYRA/TRICHOMONAS NAAT MYRA /TRICHOMONAS NAAT Lab Routine Vaginal discharge 03/28/2024 3:12 PM [facility] Work Phone: Chlamydia trachomatis+Neisseria gonorrhoeae DNA [Presence] in Unspecified specimen by AD with probe detection GONORRHEA/CHLAMYDIA NAAT Lab Routine with uncertain dates in first trimester ([facility]) care, first in first trimester ([facility]) 07/18/2024 9:07 AM T [facility] Progesterone [Mass/volume] in Serum or Plasma PROGESTERONE Lab Routine Encounter for preconception consultation 11/06/2023 8:34 AM EDT [facility] TRICHOMONAS VAGINALI S NAAT TRICHOMONAS VAGINALIS NAAT Lab Routine Screen for STD (sexually transmitted disease) 07/18/2024 9:07 AM EDT [facility] Immunizations Immunization Date Immunization Notes Care Provider [facility] 01-12-2022 influenza, injectabl e, quadrivalent, preservative free Toña Blankenship MD Work Phone: [facility] 01-12-2022 influenza virus vacc ine, unspecified formulation Lukas Darling MD Work Phone: [facility] 01-19-2021 influenza, injectabl e, quadrivalent, preservative free Toña Blankenship MD Work Phone: [facility] 01-19-2021 influenza, injectabl e, quadrivalent, contains preservative; Translations: [Fluarix PF Quadrivalent ] VERN URBAN MD [facility] 01-30-2020 Influenza, injectabl e, Madin Ana M Canine Kidney, preservative free, quadrivalent Toña Blankenship MD Work Phone: [facility] 03-28-2018 tetanus and diphther ia toxoids, adsorbed, preservative free, for adult use (5 Lf of tetanus toxoid and 2 Lf of diphtheria toxoid) VERN URBAN MD [facility] 03-28-2018 tetanus toxoid, redu vero diphtheria toxoid, and acellular pertussis vaccine, adsorbed Toña Blankenship MD Work Phone: [facility] 01-12-2016 influenza, seasonal, injectable, preservative free Toña Blankenship MD Work Phone: [facility] 02-23-2009 novel Influenza-H1N1 -09, live virus for nasal administration Toña Blankenship MD Work Phone: [facility] 06-15-2008 meningococcal polysaccharide (groups A, C, Y and W-135) diphtheria toxoid conjugate vaccine (MCV4P) VERN URBAN MD [facility] 06-08-2008 tetanus and diphther ia toxoids, adsorbed, preservative free, for adult use (5 Lf of tetanus toxoid and 2 Lf of diphtheria toxoid) VERN URBAN MD [facility] 04-08-1998 diphtheria, tetanus toxoids and acellular pertussis vaccine VERN URBAN MD [facility] 04-08-1998 measles, mumps and rubella virus vaccine Toña Blankenship MD Work Phone: [facility] 04-08-1998 measles/mumps/rubell a virus vaccine VERN URBAN MD [facility] 04-08-1998 poliovirus vaccine, inactivated VERN URBAN MD [facility] 10-16-1994 diphtheria, tetanus toxoids and acellular pertussis vaccine VERN URBAN MD [facility] 07-28-1994 haemophilus influenz ae type b vaccine, PRP-T conjugate VERN URBAN MD [facility] 07-28-1994 measles, mumps and rubella virus vaccine Toña Blankenship MD Work Phone: [facility] 07-28-1994 measles/mumps/rubell a virus vaccine VERN URBAN MD [facility] 04-14-1994 hepatitis B vaccine, unspecified formulation VERN URBAN MD [facility] 1993 diphtheria, tetanus toxoids and acellular pertussis vaccine VERN URBAN MD [facility] 1993 haemophilus influenz ae type b vaccine, PRP-T conjugate VERN URBAN MD [facility] 1993 hepatitis B vaccine, unspecified formulation VERN URBAN MD [facility] 1993 poliovirus vaccine, inactivated [facility] diphtheria, tetanus toxoids and acellular pertussis vaccine VERN URBAN MD [facility] 1993 haemophilus influenz ae type b vaccine, PRP-T conjugate VERN URBAN MD [facility] 1993 poliovirus vaccine, inactivated VERN URBAN MD [facility] 1993 diphtheria, tetanus toxoids and acellular pertussis vaccine VERN URBAN MD [facility] 1993 haemophilus influenz ae type b vaccine, PRP-T conjugate VERN URBAN MD [facility] 1993 poliovirus vaccine, inactivated VERN URBAN MD [facility] 1993 hepatitis B vaccine, unspecified formulation VERN URBAN MD [facility] Payers Date Payer Category Payer Unknown [id number] 2023 Self-pay 2022 Medicaid [id number] 2022 Private Health Insurance [id number] 2022 Private Health Insurance [id number] 2019 Medicaid [id number] 1993 Unknown [id number] 1993 Unknown [id number] 1993 Unknown [id number] 1993 Unknown [id number] Unknown [id number] Social History Date Type Detail Facility Start: 09-23-2019 End: 05-02-2022 Tobacco smoking status NHIS Never smoked tobacco [facility] Start: 05-02-2022 Tobacco use and exposure Smoke less tobacco non-user [facility] Start: 05-02-2022 End: 05-07-2024 Alcohol intake Current drinker of alcohol (finding) [facility] Start: 05-02-2022 Alcohol [facility] Start: 1993 Sex Assigned At Not on file [facility] Sex Assigned At Female [facility] Start: 08-24-2022 End: 10-30-2023 History of Social function [facility] Start: 08-24-2022 End: 10-30-2023 Tobacco use panel [facility] Start: 10-18-2014 Adult Depression Screening Assessment 2 [facility] Tobacco smoking stat us [facility] Tobacco smoking consumption unknown [facility] Start: 11-09-2022 End: 11-19-2022 Exposure to SARS-CoV-2 (event) Not sure [facility] Start: 07-15-2024 End: 11-26-2024 Alcoholic beverage intake Ex-drinker (finding) [facility] Start: 07-15-2024 Education 18 [facility] Start: 06-01-2024 [facility] Sexual Orientation [facility] susan [facility] Start: 09-25-2018 Sex Female (finding) [facility] Goals Date Patient Goal Desired Activity /State Personal health goal Functional Status Date Assessment Result Facility 11-19-2022 Functional Status Activity Assistance Ind ependent [facility] 11-19-2022 Functional Status Environmental Safety Implemented Adequate room lighting, Bed in low position, Call device within reach, Non-Slip footwear, Personal items within reach, Sensory aids within reach, Traffic path in room free of clutter, Upper/Half length side rails for bed mobility, Wheels locked [facility] 11-18-2022 Functional Status N/A [facility] Mental Status Date Assessment Result Facility 11-19-2022 Mental Status Orientation Oriented x 4 [facility] 11-18-2022 Mental Status [facility] Clinical Notes 05-02-2022 to 01-07-2025 Patient InstructionsPrenatal Quick Notes - Camelia Herrera APRN.CNM - 12/10/2024 2:30 PM EDTPrenatal Quick Notes - Camelia Herrera APRN.CNM - 12/10/2024 2:30 PM EDTPatient Instructions Note Date & Type Note Facility 01-07-2025 Note HNO ID: [id number] Author: HODA HAGER APRN.CNM Service: ? Author Type: Transmission Tester Type: Progress Notes Filed: 01/07/2025 15:23 Note Text: NST SUMMARY PROVIDER ASSESSMENT AND INTERPRETATION Smita Nguyen is a 29 year old female, , who is at 33w3d with an ENE of 02/22/2025, by Last Menstrual Period dating method. Indications for NST: Decreased Movement Baseline: 135 Variability: Moderate Accelerations: Present 15 X 15 Decelerations: None Contractions: TOCO: None Interpretation: Reactive SIGNATURE: Hoda Hager APRN.CNM [facility] 01-02-2025 Note HNO ID: [id number] Author: LAURIE SERRA APRN.CNP Service: ? Author [...] visit. Either the patient or their legal senior account representative has been informed of the risks and benefits of -- and alternatives to -- treatment through a remote evaluation and consents to proceed with the evaluation remotely. Recording using Truviso software for draft documentation of the visit was discussed with the patient/authorized senior account representative; all questions welcomed and answered. Patient/authorized senior account representative agreed to proceed CC: Outpatient follow-up [...] 19 ORAL) Take by mouth once daily. Reinerton Stork SACCHAROMYCES BOULARDII ORAL INOSITOL ORAL cholecalciferol, [...] Other obsessive-compulsive disorders (more content not included)... [facility] 12-10-2024 Instructions Tatum Guillermo MA - 12/10/2024 2:36 PM EDT SEQUENTIAL SCREENINGS The [facility] offers sequential screenings for women who [...] It will require an appointment with our manufacturing test technician. This is not an ultrasound performed [...] the above symptoms, contact our office at [phone] and ask to speak with a nurse. After hours, you can call doctors registry at [phone] OR call [facility] at [phone] and ask to have the doctor water conservation specialist paged. If you consider this an emergency, dial 9 or go to your nearest emergency department. NEED HELP? Are you dealing with a violent or abusive relationship? Are you a victim of rape or sexual assult? Call [facility] ([place]) 24 hour Crisis Hotline: 270.751.1145 or 920-301-7678. MANUAL Your Guide to a Healthy manual is now on-line. Visit [email or web address] to download your free copy documented in this encounter [facility] 12-10-2024 Miscellaneous Notes ESAU-S: Smita Nguyen [...] Camelia Herrera APRN.CNM documented in this encounter [facility] 12-10-2024 Progress note Formatting of t [...] RTO in 2 week Camelia Herrera APRN.CNM [facility] 11-26-2024 Instructions Marce Bello MA - 11/26/2024 2:38 PM EDT SEQUENTIAL SCREENINGS The [facility] offers sequential screenings for women who [...] It will require an appointment with our manufacturing test technician. This is not an ultrasound performed [...] the above symptoms, contact our office at [phone] and ask to speak with a nurse. After hours, you can call doctors registry at [phone] OR call [facility] at [phone] and ask to have the doctor water conservation specialist paged. If you consider this an emergency, dial 9-- or go to your nearest emergency department. NEED HELP? Are you dealing with a violent or abusive relationship? Are you a victim of rape or sexual assult? Call [facility] ([place]) 24 hour Crisis Hotline: 677.381.9135 or 874-281-6303. MANUAL Your Guide to a Healthy manual is now on-line. Visit [email or web address] to download your free copy documented in this encounter [facility] 11-26-2024 Progress note Formatting of t [...] complaints. Leaving for vacation next week in [place]. O: See flow sheet Gen: No apparent distress Abd: Gravid, nontender ASSESSMENT/PLAN: 1. 27 weeks gestation of 2. Supervision of normal first , antepartum 3. Other depression 4. History of depression - Continue Lexapro 20 mg PO Daily - Continue vitamin and ASA - Traveling via plane to [place] next week- wearing compression stockings and increase [...] or sooner if needed Hoda Hager APRN.CNM [facility] 11-26-2024 Miscellaneous Notes CP CENTERING S: Smita Nguyen is a 29 year old female who presents at 27 weeks gestation for a routinve visit / centering group. Positive movements. Completed GCT. Denies headache, visual changes, chest pain, shortness of breath, vaginal bleeding, leakage of fluid, or dysuria. Feeling well, no complaints. Leaving for vacation next week in [place]. O: See flow sheet Gen: No apparent distress Abd: Gravid, nontender ASSESSMENT/PLAN: 1. 27 weeks gestation of 2. Supervision of normal first , antepartum 3. Other depression 4. History of depression - Continue Lexapro 20 mg PO Daily - Continue vitamin and ASA - Traveling via plane to [place] next week- wearing compression stockings and increase [...] Hoda Hager APRN.CNM documented in this encounter [facility] 11-24-2024 Telephone encounter Note Order signed and faxed. Mora Villarreal RN [facility] 11-24-2024 Miscellaneous Notes Order signed and faxed. Mora Villarreal RN Breast pump prescription received from [facility]. Order to Mario Alberto Herrera to sign documented in this encounter [facility] 11-20-2024 Telephone encounter Note Breast pump prescription received from [facility]. Order to Mario Alberto Herrera to sign [facility] 11-12-2024 Instructions Camelia Herrera APRN.CNM - [...] blood is drawn. documented in this encounter [facility] 11-12-2024 Progress note Formatting of t [...] RTO in 2 week Camelia Herrera APRN.CNM [facility] 11-12-2024 Miscellaneous Notes ESAU-S: Smita Nguyen [...] Camelia Herrera APRN.CNM documented in this encounter [facility] 10-28-2024 Instructions Laurie Serra APRN.TUMBLING BARREL PAINTER - 10/28/2024 11:01 PM EDT We discussed your and mental health: - You are currently 23 weeks , with a due date around February 22. You are planning a water at [facility], but you are open to other options if necessary. - Continue taking Lexapro 30 mg daily as prescribed. This medication does not impact milk supply and is safe to continue during and . A refill has been sent to [facility], and you can pick it up [...] --call the National Suicide Prevention Lifeline at 172 (666-354-1758) --text the Crisis Text Line (text HOME to 147071) --call 911 and let them know you are having a mental health crisis or go to your nearest Emergency Room for stabilization. --You can also call Mobile Crisis at 660-418-8620. -- You may call the department appointment line at [phone] to schedule your appointment. -- Please call my nurse at [phone] or send me a message in RIGID with any questions or concerns between appointments. documented in this encounter [facility] 10-28-2024 Note HNO ID: [id number] Author: LAURIE SERRA APRN.TUMBLING BARREL PAINTER Service: ? Author Type: Nurse Practitioner Type: Progress Notes Filed: 10/28/2024 23:01 Note Text: FOLLOW UP - PSYCHIATRIC PROGRESS NOTE Visit Type:In person Recording using Truviso software for draft documentation of the visit was discussed with the patient/authorized senior account representative; all questions welcomed and answered. Patient/authorized senior account representative agreed to proceed CC: Outpatient follow-up [...] due to recommendations from her midwives at [facility]. She has not needed to use hydroxyzine or Ativan recently but keeps Ativan as a safety net, carrying 1-2 pills with her and keeping the rest at home. She is planning a water at [facility] and is open to alternative delivery methods [...] break from her primary job at the [employer] due to summer vacation but works at [...] when she learned of her brother and xzytgj-sx-yhk's , but she became herself in May, [...] 19 ORAL) Take by mouth once daily. Reinerton Stork SACCHAROMYCES BOULARDII ORAL INOSITOL ORAL cholecalciferol, [...] and goal-directed Associat (more content not included)... [facility] 10-28-2024 History of Presen t illness Narrative Images from the original note were not included. FOLLOW UP - PSYCHIATRIC PROGRESS NOTE Visit Type:In person Recording using Truviso software for draft documentation of the visit was discussed with the patient/authorized senior account representative; all questions welcomed and answered. Patient/authorized senior account representative agreed to proceed CC: Outpatient follow-up [...] due to recommendations from her midwives at [facility]. She has not needed to use hydroxyzine or Ativan recently but keeps Ativan as a safety net, carrying 1-2 pills with her and keeping the rest at home. She is planning a water at [facility] and is open to alternative delivery methods [...] when she learned of her brother and uwgbaz-ad-sbz's , but she became herself in May, [...] 19 ORAL) Take by mouth once daily. Reinerton Stork SACCHAROMYCES BOULARDII ORAL INOSITOL ORAL cholecalciferol, [...] Appropriate Insight: Good Judgment: Good DATA REVIEWED: [facility] website checked and validated. All prescriptions have been APPROPRIATELY filled. No suspicious activity was identified. 10/28/2024 by Laurie Serra APRN.TUMBLING BARREL PAINTER Psychiatric scales, Labs, and Electronic medical record ASSESSMENT & PLAN: 1. 1. FREDO (generalized anxiety disorder) (F41.1) Recurrent major depressive disorder, in full remission (F33.42) Currently well-managed with Lexapro 30 mg and Inositol. No recent use of Hydroxyzine or Ativan. Engaged in regular exercise and cognitive behavioral therapy. - Continue Lexapro 30 mg daily; refill sent to [facility]. - Advised against using Hydroxyzine due [...] regimen. - Refill for Lexapro sent to [facility]. Medical Decision Making: Problems: Moderate: 2+ stable chronic illnesses Risk: Moderate: Moderate risk from testing/treatment and Drug management Medical Decision Making Level: 4 - Moderate ADD ON PSYCHOTHERAPY CODE : No SIGNATURE: Laurie Serra APRN.CNP PATIENT NAME: Smita Nguyen DATE: October 28, 2024 TIME: 11:32 AM documented in this encounter [facility] 10-22-2024 Instructions Marce Bello MA - 10/22/2024 2:35 PM EDT SEQUENTIAL SCREENINGS The [facility] offers sequential screenings for women who [...] It will require an appointment with our manufacturing test technician. This is not an ultrasound performed [...] the above symptoms, contact our office at [phone] and ask to speak with a nurse. After hours, you can call doctors registry at [phone] OR call [facility] at [phone] and ask to have the doctor water conservation specialist paged. If you consider this an emergency, dial [phone] or go to your nearest emergency department. NEED HELP? Are you dealing with a violent or abusive relationship? Are you a victim of rape or sexual assult? Call [facility] ([place]) 24 hour Crisis Hotline: 428.606.6932 or 272-791-4647. MANUAL Your Guide to a Healthy manual is now on-line. Visit [email or web address] [email or web address] to download your free copy documented in this encounter [facility] 10-22-2024 Progress note Formatting of t [...] or sooner if needed Hoda Hager APRN.CNM [facility] 10-22-2024 Miscellaneous Notes CP- CENTERING S: [...] Hoda Hager APRN.CNM documented in this encounter [facility] 10-08-2024 Instructions Lisandro Rainey MA - 10/08/2024 9:15 AM EDT SEQUENTIAL SCREENINGS The [facility] offers sequential screenings for women who [...] It will require an appointment with our manufacturing test technician. This is not an ultrasound performed [...] the above symptoms, contact our office at [phone] and ask to speak with a nurse. After hours, you can call doctors registry at [phone] OR call [facility] at [phone] and ask to have the doctor water conservation specialist paged. If you consider this an emergency, dial 9-1-5 or go to your nearest emergency department. NEED HELP? Are you dealing with a violent or abusive relationship? Are you a victim of rape or sexual assult? Call [facility] ([facility] 24 hour Crisis Hotline: 912.840.1193 or 082-898-2376. MANUAL Your Guide to a Healthy manual is now on-line. Visit [email or web address] [email or web address] to download your free copy documented in this encounter [facility] 10-08-2024 Progress note Formatting of t [...] or sooner if needed Hoda Hager APRN.CNM [facility] 10-08-2024 Miscellaneous Notes S: Smita Nguyen [...] Hoda Hager APRN.CNM documented in this encounter [facility] 09-29-2024 Telephone encounter Note Patient scheduled for Centering. Lisandro Rainey MA [facility] 09-29-2024 Miscellaneous Notes Patient scheduled for Centering. Lisandro Rainey MA documented in this encounter [facility] 09-23-2024 Telephone encounter Note Covering for regular provider Laurie Serra. Will approve fill at this time [facility] 09-23-2024 Miscellaneous Notes Covering for regular [...] sent to schedule documented in this encounter [facility] 09-23-2024 Telephone encounter Note Last: 06/23/24 TREATMENT PLAN: Continue Lexapro 30 mg at the same dose to address mood and anxiety symptoms. Utilize Hydroxyzine and Ativan as needed to manage anxiety symptoms. Continue engagement in individual and couple's psychotherapy. Follow up in 3 months or sooner if needed. Next: TYRESE msg sent to schedule [facility] 09-10-2024 Progress note Formatting of t [...] for anatomy US and KING Hager APRN.CNM [facility] Work Phone: 09-10-2024 Miscellaneous Notes S: [...] KING Hager APRN.CNM documented in this encounter [facility] 09-10-2024 Instructions Lisandro Rainey MA - 09/10/2024 3:11 PM EDT SEQUENTIAL SCREENINGS The [facility] offers sequential screenings for women who [...] It will require an appointment with our manufacturing test technician. This is not an ultrasound performed [...] the above symptoms, contact our office at [phone] and ask to speak with a nurse. After hours, you can call doctors registry at [phone] OR call [facility] at [phone] and ask to have the doctor water conservation specialist paged. If you consider this an emergency, dial 9-1- or go to your nearest emergency department. NEED HELP? Are you dealing with a violent or abusive relationship? Are you a victim of rape or sexual assult? Call [facility] ([place]) 24 hour Crisis Hotline: 544.415.1042 or 585-205-2651. MANUAL Your Guide to a Healthy manual is now on-line. Visit [email or web address] [email or web address] to download your free copy documented in this encounter [facility] 08-15-2024 Instructions Camelia Herrera APRN.CNM - 08/15/2024 2:34 PM EDT Low Dose Aspirin This sheet talks about exposure to low dose aspirin in and while . This information should not take the place of medical care and advice from your healthcare provider.\ What is low dose aspirin? Aspirin is also known as acetylsalicylic acid. It is a common prescription and mtxj-rei-rczpoec medication similar to other non-steroidal inflammatory drugs [...] . For more information, please see the [employer] fact sheet Paternal Exposures at [email or web address] [email or web address] y/. SEQUENTIAL SCREENINGS The [facility] offers sequential screenings for women who [...] It will require an appointment with our manufacturing test technician. This is not an ultrasound performed [...] the above symptoms, contact our office at [phone] and ask to speak with a nurse. After hours, you can call doctors registry at [phone] OR call [facility] at [phone] and ask to have the doctor water conservation specialist paged. If you consider this an emergency, dial 9-1-1 or go to your nearest emergency department. NEED HELP? Are you dealing with a violent or abusive relationship? Are you a victim of rape or sexual assult? Call [facility] [place] ([facility] 24 hour Crisis Hotline: 384.481.6312 or 143-860-5767. MANUAL Your Guide to a Healthy manual is now on-line. Visit [email or web address] ancyGuide to download your free copy documented in this encounter [facility] 08-15-2024 Progress note Formatting of t [...] RTO in 4 weeks Camelia Herrera APRN.CNM [facility] 08-15-2024 Miscellaneous Notes ESAU-S: Smita Nguyen [...] Camelia Herrera APRN.CNM documented in this encounter [facility] 07-18-2024 Instructions Mary Kay Wiseman LPN - 07/18/2024 7:57 AM EDT Please select the following link to access the [facility] Your Guide to a Healthy . [email or web address] documented in this encounter [facility] 07-15-2024 Note HNO ID: [id number] Author: YASMEEN VERA APRN.TUMBLING BARREL PAINTER Service: ? Author Type: Nurse Practitioner Type: Progress Notes Filed: 07/18/2024 10:03 Note Text: Patient declined bay stocker. 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 135 tablet 0 SACCHAROMYCES BOULARDII O (more content not included)... [facility] 07-15-2024 History of Presen t illness Narrative Patient declined bay stocker. 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 As applicable, any other physician, advance practice provider, medical student, or other health professional student that will be observing or involved in the sensitive examination for educational or training purposes was discussed with the Patient or Authorized Application Software Engineer. The Patient or Authorized Application Software Engineer has agreed to proceed with the sensitive [...] activity, CRL consistent with LMP. Yasmeen Vera, MELANIE.TUMBLING BARREL PAINTER SBIRT Smita Nguyen was given the 4P's [...] Your guide to a health and the Supply Person. Reviewed midwifery and vb developer services that are available. 2) Screening: Hemoglobin [...] Yasmeen Vera APRN.CNP documented in this encounter [facility] 07-15-2024 Telephone encounter Note Pt called [...] bladder. Pt voiced understanding. Pamela Cooper RN [facility] 07-15-2024 Miscellaneous Notes Pt called back [...] Deann Perez MA documented in this encounter [facility] 07-15-2024 Telephone encounter Note Attempted to contact patient by phone number listed in chart to go over new ob intake questions. No answer. Had to leave a voicemail. Patient was advised to come in 30 minutes early to her appointment to complete if she is unable to speak to someone. Deann Perez MA [facility] 06-23-2024 Instructions Laurie Serra APRN.CNP - [...] the National Suicide Prevention Lifeline at 988 (682.389.8909) --text the Crisis Text Line (text HOME to 042197) --call 041 and let them know you are having a mental health crisis or go to your nearest Emergency Room for stabilization. --You can also call Mobile Crisis at [phone]. -- You may call the department appointment line at [phone] to schedule your appointment. -- Please call my nurse at [phone] or send me a message in RIGID with any questions or concerns between appointments. documented in this encounter [facility] 06-23-2024 Note HNO ID: [id number] Author: LAURIE SERRA APRN.CNP Service: ? Author [...] visit. Either the patient or their legal senior account representative has been informed of the risks [...] Full and appropri (more content not included)... [facility] 06-23-2024 History of Presen t illness Narrative [...] visit. Either the patient or their legal senior account representative has been informed of the risks [...] TIME: 3:03 PM documented in this encounter [facility] 06-13-2024 Note HNO ID: [id number] Author: TOÑA BLANKENSHIP MD Service: ? Author [...] Living0 SAB0 IAB0 Ectopic0 Multiple0 Live Births0 Cell Plasterer History LMP: 05/18/2024 (Exact Date), Having periods Age at Menarche: Age at First : Age at Menopause: Cell Plasterer History Comments: Sexual Activity: Yes; Male Contraception: [...] discussed with the Patient or Patient's Authorized Application Software Engineer. As applicable, any other physician, advance practice provider, medical student, or other health professional student that will be observing or involved in the sensitive examination for educational or training purposes was discussed with the Patient or Authorized Application Software Engineer. The Patient or Authorized Application Software Engineer has agreed to proceed with the sensitive [...] and FSH Medi (more content not included)... [facility] 06-13-2024 History of Presen t illness Narrative [...] Living0 SAB0 IAB0 Ectopic0 Multiple0 Live Births0 Cell Plasterer History LMP: 05/18/2024 (Exact Date), Having periods Age at Menarche: Age at First : Age at Menopause: Cell Plasterer History Comments: Sexual Activity: Yes; Male Contraception: [...] discussed with the Patient or Patient's Authorized Application Software Engineer. As applicable, any other physician, advance practice provider, medical student, or other health professional student that will be observing or involved in the sensitive examination for educational or training purposes was discussed with the Patient or Authorized Application Software Engineer. The Patient or Authorized Application Software Engineer has agreed to proceed with the sensitive [...] Toña Blankenship MD documented in this encounter [facility] 05-29-2024 Telephone encounter Note Refill sent to the pharmacy. Patient is due to schedule a follow up appointment with the provider. [facility] 05-29-2024 Miscellaneous Notes Refill sent to the pharmacy. Patient is due to schedule a follow up appointment with the provider. Pt reports she only has 1-2 days left on this Rx. Last appt with Laurie: 03-06-24 Next appt: none documented in this encounter [facility] 05-29-2024 Telephone encounter Note Pt reports she only has 1-2 days left on this Rx. Last appt with Laurie: 03-06-24 Next appt: none [facility] 05-19-2024 Note HNO ID: [id number] Author: MARCIE SHIELDS MD Service: ? 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 Encounter Diagnosis ICD-10-CM 1. Desire for Z31.9 2. Irregular menstrual cycle N92.6 Please see report under imaging tab. Marcie Shields MD May 19, 2024 12:[address] 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 Encounter Diagnosis ICD-10-CM 1. Desire for Z31.9 2. Irregular menstrual cycle N92.6 Please see report under imaging tab. Marcie Shields MD May 19, 2024 12:34 PM documented in this encounter [facility] 05-07-2024 Note HNO ID: [id number] Author: BRENNAN HEAD APRN.TUMBLING BARREL PAINTER Service: ? Author Type: Nurse Practitioner Type: Progress Notes Filed: 05/07/2024 11:12 Note Text: Gasoline Truck Operator offered: Patient declines. Smita Nguyen is [...] L0 SAB0 IAB0 Ectopic0 Multiple0 Live Births0 Cell Plasterer History LMP: 03/22/2024 (Exact Date), Having periods Age at Menarche: Age at First : Age at Menopause: Cell Plasterer History Comments: Sexual Activity: Yes; Male Contraception: [...] or incontinence. + dysuria, odor Expanded ROS: CLIENT RELATIONSHIP EXECUTIVE: Negative for abnormal vaginal bleeding, abnormal vaginal [...] Medical Decision Making Level: 3 - Low [facility] 05-07-2024 History of Presen t illness Narrative Gasoline Truck Operator offered: Patient declines. Smita Nguyen is [...] L0 SAB0 IAB0 Ectopic0 Multiple0 Live Births0 Cell Plasterer History LMP: 03/22/2024 (Exact Date), Having periods Age at Menarche: Age at First : Age at Menopause: Cell Plasterer History Comments: Sexual Activity: Yes; Male Contraception: [...] or incontinence. + dysuria, odor Expanded ROS: CLIENT RELATIONSHIP EXECUTIVE: Negative for abnormal vaginal bleeding, abnormal vaginal [...] 3 - Low documented in this encounter [facility] 03-28-2024 Note HNO ID: [id number] Author: CAMELIA HERRERA APRN.CNM Service: ? Author Type: Transmission Tester Type: Progress Notes Filed: 03/28/2024 15:16 Note Text: Smita Nguyen is a 28 year old female who presents for problem visit HPI: Presents today with complaint of vaginal discharge, odor, and concerns she has another BV infection. Denies any other complaint. OB History T0 L0 SAB0 IAB0 Ectopic0 Multiple0 Live Births0 Cell Plasterer History LMP: 03/22/2024 (Exact Date), Having periods Age at Menarche: Age at First : Age at Menopause: Cell Plasterer History Comments: Sexual Activity: Yes; Male Contraception: [...] discussed with the Patient or Patient's Authorized Application Software Engineer. As applicable, any other physician, advance practice provider, medical student, or other health professional student that will be observing or involved in the sensitive examination for educational or training purposes was discussed with the Patient or Authorized Application Software Engineer. The Patient or Authorized Application Software Engineer has agreed to proceed with the sensitive examination. (Sensitive examination includes inspection and/or palpation of the breasts, pelvis, prostate and anorectal regions). EXAM: BP 110/74 Wt 172 lb (78.0kg) LMP 03/22/2024 GENERAL: pleasant, female in no apparent distress HEENT: Normocephalic and atraumatic NECK: Supple and full range of motion PELVIC: external genitalia normal, normal Bartholin's glands, urethra, [place]'s glands, no vulvar lesions, no cervical lesions, [...] MYRA/TRICHOMONAS NAAT BACTERIAL VAGINOSIS NAAT [facility] History of Presen t illness Narrative Smita Nguyen is a 28 year old female who presents for problem visit HPI: Presents today with complaint of vaginal discharge, odor, and concerns she has another BV infection. Denies any other complaint. OB History T0 L0 SAB0 IAB0 Ectopic0 Multiple0 Live Births0 Cell Plasterer History LMP: 03/22/2024 (Exact Date), Having periods Age at Menarche: Age at First : Age at Menopause: Cell Plasterer History Comments: Sexual Activity: Yes; Male Contraception: [...] discussed with the Patient or Patient's Authorized Application Software Engineer. As applicable, any other physician, advance practice provider, medical student, or other health professional student that will be observing or involved in the sensitive examination for educational or training purposes was discussed with the Patient or Authorized Application Software Engineer. The Patient or Authorized Application Software Engineer has agreed to proceed with the sensitive examination. (Sensitive examination includes inspection and/or palpation of the breasts, pelvis, prostate and anorectal regions). EXAM: BP 110/74 Wt 172 lb (78.0kg) LMP 03/22/2024 GENERAL: pleasant, female in no apparent distress HEENT: Normocephalic and atraumatic NECK: Supple and full range of motion PELVIC: external genitalia normal, normal Bartholin's glands, urethra, [place]'s glands, no vulvar lesions, no cervical lesions, [...] Camelia Herrera APRN.NO documented in this encounter [facility] 03-11-2024 Telephone encounter Note Last OV 02/04/24. Requested Prescriptions Pending Prescriptions Disp Refills progesterone micronized (PROMETRIUM) 100 mg capsule 90 capsule 11 Sig: Take 3 capsules by mouth once daily. Used for mood. Progesterone - Compound Pamela Cooper RN [facility] 03-11-2024 Miscellaneous Notes Last OV 02/04/24. Requested Prescriptions Pending Prescriptions Disp Refills progesterone micronized (PROMETRIUM) 100 mg capsule 90 capsule 11 Sig: Take 3 capsules by mouth once daily. Used for mood. Progesterone - Compound Pamela Cooper RN documented in this encounter [facility] 03-06-2024 Instructions Laurie Serra APRN.TUMBLING BARREL PAINTER - 03/06/2024 8:55 AM EST TREATMENT PLAN: [...] --call the National Suicide Prevention Lifeline at 638 (688-147-3080) --text the Crisis Text Line (text HOME to 236079) --call 491 and let them know you are having a mental health crisis or go to your nearest Emergency Room for stabilization. --You can also call Mobile Crisis at [phone]. -- You may call the department appointment line at [phone] to schedule your appointment. -- Please call my nurse at [phone] or send me a message in RIGID with any questions or concerns between appointments. documented in this encounter [facility] 03-06-2024 History of Presen t illness [...] visit. Either the patient or their legal senior account representative has been informed of the risks [...] lab work at the next appointment. Today Smtia shares that I have been good. There [...] Did have a meeting with her supervisor fabrication and assembly to discuss some of her concerns. Has [...] TIME: 8:35 AM documented in this encounter [facility] 03-06-2024 Note HNO ID: [id number] Author: LAURIE SERRA APRN.CNP Service: ? Author [...] visit. Either the patient or their legal senior account representative has been informed of the risks [...] Did have a meeting with her supervisor fabrication and assembly to discuss some of her concerns. Has [...] phonetics, and sy (more content not included)... [facility] 02-04-2024 Note HNO ID: [id number] Author: CAMELIA HERRERA APRN.CNM Service: ? Author Type: Transmission Tester Type: Progress Notes Filed: 02/11/2024 08:48 Note Text: Gasoline Truck Operator offered: Patient declines. Smita is a 28 year old who presents for an annual gynecologic exam. Attempting for the last 7 months. Did not attempt in December due to stress and needed a break. Stopped using OPK kits but did show LH surge when she was using them, notices mucous change during ovulation. Ferney every other day when she is trying [...] No Exercise: 4-6 times a week doing [address] OB History T0 L0 SAB0 IAB0 Ectopic0 Multiple0 Live Births0 Cell Plasterer History LMP: 01/15/2024 (Exact Date), Having periods Age at Menarche: Age at First : Age at Menopause: Cell Plasterer History Comments: Sexual Activity: Yes; Male Contraception: [...] discussed with the Patient or Patient's Authorized Application Software Engineer. As applicable, any other physician, advance practice provider, medical student, or other health professional student that will be observing or involved in the sensitive examination for educational or training purposes was discussed with the Patient or Authorized Application Software Engineer. The Patient or Authorized Application Software Engineer has agreed to proceed with the sensitive [...] external genitalia normal, normal Bartholin's glands, urethra, Metropolis's glands, no vulvar lesions, no cervical lesions, [...] recommend stopping medication (more content not included)... [facility] 02-04-2024 History of Presen t illness Narrative Gasoline Truck Operator offered: Patient declines. Smita is a 28 year old who presents for an annual gynecologic exam. Attempting for the last 7 months. Did not attempt in December due to stress and needed a break. Stopped using OPK kits but did show LH surge when she was using them, notices mucous change during ovulation. Ferney every other day when she is trying [...] No Exercise: 4-6 times a week doing [address] OB History T0 L0 SAB0 IAB0 Ectopic0 Multiple0 Live Births0 Cell Plasterer History LMP: 01/15/2024 (Exact Date), Having periods Age at Menarche: Age at First : Age at Menopause: Cell Plasterer History Comments: Sexual Activity: Yes; Male Contraception: [...] discussed with the Patient or Patient's Authorized Application Software Engineer. As applicable, any other physician, advance practice provider, medical student, or other health professional student that will be observing or involved in the sensitive examination for educational or training purposes was discussed with the Patient or Authorized Application Software Engineer. The Patient or Authorized Application Software Engineer has agreed to proceed with the sensitive [...] external genitalia normal, normal Bartholin's glands, urethra, Metropolis's glands, no vulvar lesions, no cervical lesions, [...] Camelia Herrera APRN.CNM documented in this encounter [facility] 01-30-2024 Instructions Laurie Serra APRN.CNP - [...] the National Suicide Prevention Lifeline at 988 (353.806.4680) --text the Crisis Text Line (text HOME to 564899) --call 821 and let them know you are having a mental health crisis or go to your nearest Emergency Room for stabilization. --You can also call Mobile Crisis at [phone]. Next appointment: March 06 at 8:30 am virtual -- You may call the department appointment line at [phone] to schedule your appointment. -- Please call my nurse at [phone] or send me a message in RIGID with any questions or concerns between appointments. documented in this encounter [facility] 01-25-2024 Note HNO ID: [id number] Author: LAURIE SERRA APRN.CNP Service: ? Author [...] visit. Either the patient or their legal senior account representative has been informed of the risks [...] work has been normal. Has seen her umbrella tipper machine. Has not started the recommended supplements. Reviewed that list of recommended supplements and encouraged patient to start them. Asked about continuing her compounded progesterone. Encouraged that she reach out to her Transmission Tester Yolanda to ask about that. Does still [...] HPI VITAL SIGN (more content not included)... [facility] 01-25-2024 History of Presen t illness Narrative [...] visit. Either the patient or their legal senior account representative has been informed of the risks [...] work has been normal. Has seen her umbrella tipper machine. Has not started the recommended supplements. Reviewed that list of recommended supplements and encouraged patient to start them. Asked about continuing her compounded progesterone. Encouraged that she reach out to her Transmission Tester Yolanda to ask about that. Does still [...] TIME: 1:57 PM documented in this encounter [facility] 10-30-2023 Instructions Camelai Herrera APRN.CNM - 10/30/2023 10:13 AM EDT [...] me know. I can place the order. [email or web address]/ If you ever desire referral to infertility please do not hesitate to ask. Can try these supplements and see what happens in the next 3 months Supplements: 1) Berberine 400 mg three times daily for PCOS 2) Inositol (Edwin-inositol and C-zjidj-lvygbqgd 40:1 ratio)I recommend using a combination product containing edwin-inositol and z-qrdax-yvysnyii, up to 4 grams per day, for maximum benefit. Can add Iniosotil 2,000mg that you have https://[employer]/products/m yy-zguzz-ddxvbxxn-40-1 3) Vitex https://[employer]/products/v rojz-pesste-ecjd-glez-capsule 4) Vitamin Urology for semen analysis documented in this encounter [facility] 10-30-2023 History of Presen t illness [...] flow. Using OPK and showing LH surge. Ferney every day to every other day after last day of menses. Making sure to having intercourse near and on day 14 at ovulation. Notices increased discharge at time of ovulation. No history of STDs or pelvic surgery. [place], together for 5 year. Was using condoms or withdrawal method prior to trying to conceive. OB History T0 L0 SAB0 IAB0 Ectopic0 Multiple0 Live Births0 Cell Plasterer History LMP: 10/17/2023 (Exact Date), Having periods Age at Menarche: Age at First : Age at Menopause: Cell Plasterer History Comments: Sexual Activity: Yes; Male Contraception: [...] 10 mg by mouth daily at bedtime. 217-vrhv-itkkp-omega3 (ONE-A-DAY -1) 27 mg iron- 800 mcg-235 [...] Camelia Herrera APRN.CNM documented in this encounter [facility] 10-18-2023 History of Presen t illness [...] visit. Either the patient or their legal senior account representative has been informed of the risks [...] night a week when her is in [place] for work. Cannot remember the last time [...] Take 2 tablets by mouth once daily. 955-pjbd-zuimx-omega3 (ONE-A-DAY -1) 27 mg iron- 800 mcg-235 [...] activity was identified. 10/18/2023 by Laurie Serra APRN.TUMBLING BARREL PAINTER DIAGNOSIS: Other obsessive-compulsive disorders (primary encounter diagnosis) Fredo (generalized anxiety disorder) Recurrent major depressive disorder, in partial remission ([facility]) Encounter for long-term (current) use of medications [...] which included preparing to see the patient, dvhq-zr-mrjp patient care, completing clinical documentation, and counseling and educating the patient/family/caregiver, ordering medications/labs. ADD ON PSYCHOTHERAPY CODE : No SIGNATURE: Laurie Serra APRN.CNP PATIENT NAME: Smita Nguyen DATE: October 18, 2023 TIME: 8:58 AM documented in this encounter [facility] 08-17-2023 Telephone encounter Note Patient notified. She thinks menses started today. Will call with further concerns. Mora Villarreal RN [facility] 08-17-2023 Miscellaneous Notes Patient notified. She [...] Mora Villarreal RN documented in this encounter [facility] 08-17-2023 Telephone encounter Note Can order serum hCG if negative recommend follow up appt virtual. Camelia Herrera APRN.CNM [facility] 08-16-2023 Telephone encounter Note Patient calling [...] back in office tomorrow. Mora Villarreal RN [facility] 07-18-2023 History of Presen t illness [...] visit. Either the patient or their legal senior account representative has been informed of the risks [...] infection. Reports premenstrual worsening of her anxiety. [place] that anxiety began in 2011 after she [...] on File Prior to Visit Medication Sig 425-jzic-kejjx-omega3 (ONE-A-DAY -1) 27 mg iron- 800 mcg-235 [...] --call the National Suicide Prevention Lifeline at 987 (371-970-3350) --text the Crisis Text Line (text HOME to 184047) --call 811 and let them know you are having a mental health crisis or go to your nearest Emergency Room for stabilization. --You can also call Mobile Crisis at [phone]. MEDICATION CHANGES: Current medication regimen unchanged. See [...] which included preparing to see the patient, hezw-mi-extb patient care, completing clinical documentation, and counseling and educating the patient/family/caregiver, ordering medications/labs. ADD ON PSYCHOTHERAPY CODE : No SIGNATURE: Laurie Serra APRN.CNP PATIENT NAME: Smita Nguyen DATE: July 18, 2023 TIME: 2:43 PM documented in this encounter [facility] 06-20-2023 History of Presen t illness Narrative Smita Nguyen is a 28 year old female who presents for problem visit HPI: Trying to conceive in last 3 months. Using OPK and showing LH surge. Ferney every day to every other day after [...] L0 SAB0 IAB0 Ectopic0 Multiple0 Live Births0 Cell Plasterer History LMP: 06/09/2023 (Exact Date), Having periods Age at Menarche: Age at First : Age at Menopause: Cell Plasterer History Comments: Sexual Activity: Yes; Male Contraception: Condom No past medical history on file. No past surgical history on file. No family history on file. Social History Tobacco Use Smoking status: Never Smokeless tobacco: Never Vaping Use Vaping Use: Never used Substance Use Topics Alcohol use: Yes Comment: rarely Drug use: Never Current Outpatient Medications Medication Sig 402-amqu-ahybk-omega3 (ONE-A-DAY -1) 27 mg iron- 800 mcg-235 [...] cap Take by mouth as directed. PNV 423-tpli-umuowq-dha 90 mg iron- 1 mg-200 mg cap [...] Camelia Herrera APRN.CNM documented in this encounter [facility] 06-19-2023 History of Presen t illness [...] visit. Either the patient or their legal senior account representative has been informed of the risks [...] as leaves that day to work in [place]. They are staying at their new place [...] cap Take by mouth as directed. PNV 800-alkl-jndaqm-dha 90 mg iron- 1 mg-200 mg cap [...] Psychiatric scales, Labs, Electronic medical record, and Nylon Operator notes DIAGNOSIS: OCD Generalized Anxiety Disorder MDD, [...] which included preparing to see the patient, cfii-aa-vkjl patient care, completing clinical documentation, obtaining and/or [...] TIME: 2:07 PM documented in this encounter [facility] 02-26-2023 Telephone encounter Note Collaborated with patient's psychologist Maia Lockett regarding patient's current presentation, medication management plan and coping strategies. [facility] Work Phone: 02-26-2023 Miscellaneous Notes Collaborated with patient's psychologist Maia Lockett regarding patient's current presentation, medication management plan and coping strategies. Patient verified by name and . Maia Lockett, her Psychologist is calling, She would like to consult with Laurie about this patient. She can be reached at [phone]. documented in this encounter [facility] 02-26-2023 History of Presen t illness [...] visit. Either the patient or their legal senior account representative has been informed of the risks [...] cap Take by mouth as directed. PNV 786-kwit-kxjdlv-dha 90 mg iron- 1 mg-200 mg cap [...] which included preparing to see the patient, nims-ic-sknt patient care, completing clinical documentation, obtaining and/or [...] TIME: 9:01 AM documented in this encounter [facility] 02-16-2023 Miscellaneous Notes Last annual with [facility] 01/29/23. Requested Prescriptions Pending Prescriptions Disp Refills progesterone micronized (PROMETRIUM) 100 mg capsule 90 capsule 11 Sig: Take 3 capsules by mouth once daily. Used for mood. Progesterone - Compound Mora Villarreal RN documented in this encounter [facility] 02-08-2023 Telephone encounter Note Patient verified by name and . Maia Lockett, her Psychologist is calling, She would like to consult with Laurie about this patient. She can be reached at [phone]. [facility] 02-05-2023 History of Presen t illness [...] visit. Either the patient or their legal senior account representative has been informed of the risks [...] Her parents are going to travel to [place] for 1 week but her will be [...] cap Take by mouth as directed. PNV 696-ortc-dsbstv-dha 90 mg iron- 1 mg-200 mg cap [...] REVIEWED: Psychiatric scales, Electronic medical record, and Nylon Operator notes DIAGNOSIS: PRIMARY: OCD Secondary : Generalized [...] which included preparing to see the patient, zvex-su-ejfy patient care, completing clinical documentation, obtaining and/or reviewing separately obtained history, counseling and educating the patient/family/caregiver, ordering medications, tests, or procedures, independently interpreting results (not separately reported), and communicating results to the patient/family/caregiver. ADD ON PSYCHOTHERAPY CODE : No SIGNATURE: Laurie Serra APRN.CNP PATIENT NAME: Smita Nguyen DATE: February 05, 2023 TIME: 10:02 AM documented in this encounter [facility] 01-29-2023 History of Presen t illness Narrative Smita is a 27 year old who presents for an annual gynecologic exam without complaints. Recent episode in September with mental health and has decided to not conceive at this time. Coping ok with this but just disappointed. Continues to work with Laurie Rousseau NP and psychology at [facility]. Getting ready to start EMDR. Menses: cycles [...] L0 SAB0 IAB0 Ectopic0 Multiple0 Live Births0 Cell Plasterer History LMP: 01/26/2023 (Exact Date), Having periods Age at Menarche: Age at First : Age at Menopause: Cell Plasterer History Comments: Sexual Activity: Yes; Male Contraception: [...] external genitalia normal, normal Bartholin's glands, urethra, Metropolis's glands, no vulvar lesions, no cervical lesions, [...] Camelia Herrera APRN.CNM documented in this encounter [facility] 01-22-2023 History of Presen t illness [...] visit. Either the patient or their legal senior account representative has been informed of the risks [...] able to go and spend time in [place] with and friends. She has been able [...] cap Take by mouth as directed. PNV 714-eboe-ievwdz-dha 90 mg iron- 1 mg-200 mg cap [...] which included preparing to see the patient, nqcp-oa-lsng patient care, completing clinical documentation, obtaining and/or reviewing separately obtained history, counseling and educating the patient/family/caregiver, ordering medications, tests, or procedures, and communicating results to the patient/family/caregiver. ADD ON PSYCHOTHERAPY CODE : No SIGNATURE: Laurie Serra APRN.CNP PATIENT NAME: Smita Nguyen DATE: January 22, 2023 TIME: 9:32 AM documented in this encounter [facility] 01-16-2023 Miscellaneous Notes Called Rasheeda Chang, pharmacy laboratory technician and given Camelia Herrera's directive Pharmacy can verify what patient prefers, I am ok to keep sublingual but can discuss cost with patient. Camelia Herrera APRN.CNM [facility] pharmacy calling and wanted to know on the progestrone, she had been getting sublingual compound. Do you want to continue that or change to capsule? Please advise. Alexandrea Danielle LPN documented in this encounter [facility] 01-15-2023 Miscellaneous Notes Patient scheduled for annual exam with [facility] 01/29. Requested Prescriptions Pending Prescriptions Disp Refills progesterone micronized (PROMETRIUM) 100 mg capsule 90 capsule 0 Sig: Take 3 capsules by mouth once daily. Used for mood. Progesterone - Compound HARISH MAGALLANES RN documented in this encounter [facility] 01-09-2023 History of Presen t illness [...] tablet of Ativan. This week going to [employer] was better than last week. She continues [...] which included preparing to see the patient, shlf-ux-xlte patient care, completing clinical documentation, and counseling and educating the patient/family/caregiver, ordering medications/labs. Laurie Serra APRN.DAVY January 09, 2023 4:36 PM This note was partially generated using [email or web address] voice recognition system. Note was reviewed for accuracy. There may be minor misspellings or grammar miscues with [email or web address] voice recognition. documented in this encounter [facility] 01-02-2023 History of Presen t illness [...] was also able to go to the [place] fest. Sunday she went to the fall [...] which included preparing to see the patient, dsbx-mk-eqdo patient care, completing clinical documentation, and counseling and educating the patient/family/caregiver, ordering medications/labs. Laurie Serra APRN.CNP January 02, 2023 3:11 PM This note was partially generated using [email or web address] voice recognition system. Note was reviewed for accuracy. There may be minor misspellings or grammar miscues with [email or web address] voice recognition. documented in this encounter [facility] 12-21-2022 Miscellaneous Notes Spoke with the [...] that with you. documented in this encounter [facility] 12-15-2022 History of Presen t illness [...] visit. Either the patient or their legal senior account representative has been informed of the risks [...] at Will be seeing a psychologist at [facility] in [place]. Has an intake scheduled in December. She [...] which included preparing to see the patient, ltoo-qs-bppg patient care, completing clinical documentation, and counseling and educating the patient/family/caregiver, ordering medications/labs. Laurie Serra APRN.DAVY December 15, 2022 5:03 PM This note was partially generated using [email or web address] voice recognition system. Note was reviewed for accuracy. There may be minor misspellings or grammar miscues with [email or web address] voice recognition. documented in this encounter [facility] 11-21-2022 History of Presen t illness [...] symptoms. Continue individual psychotherapy. Consider IOP at [facility]. Follow up on Sunday. The effects [...] visit. Either the patient or their legal senior account representative has been informed of the risks [...] which included preparing to see the patient, hdah-pk-uwsn patient care, completing clinical documentation, and counseling and educating the patient/family/caregiver, ordering medications/labs. Laurie Serra APRN.TUMBLING BARREL PAINTER November 21, 2022 2:35 PM This note was partially generated using [email or web address] voice recognition system. Note was reviewed for accuracy. There may be minor misspellings or grammar miscues with [email or web address] voice recognition. documented in this encounter [facility] 11-20-2022 Instructions Laurie Serra APRN.DAVY - 11/20/2022 3:13 PM EDT Anastacio Grullon, It was good to talk with you today. Below is a summary of the plan that we discussed during your appointment for reference. Of course, if you have any questions or concerns do not hesitate to reach out to me via a message or call. aLurie Palacios APRN.DAVY PLAN AND FOLLOW UP: YOU [...] - Call the National Suicide Hotline at 8-393-ALIJQRQ ( ) or 3-075-786-TALK (9572) - Text 4HOPE to 697741 Medication Update: Discontinue Buspar. 2. Ativan 1 mg - take 1 tablet twice daily as needed during the day and 2 mg at bedtime to help with anxiety and intrusive thoughts. 3. Continue Lexapro at the same dose. 4. Discontinue Xanax. Next appointment: Tomorrow at 2:30 pm in person -- You may call the department appointment line at [phone] to schedule your appointment. -- Please call my nurse Annalisa at [phone] or send me a message in RIGID with any questions or concerns between appointments. documented in this encounter [facility] 11-20-2022 History of Presen t illness [...] to struggle with intrusive thoughts. Referred to [facility] IOP program for additional support. Discussed safety [...] visit. Either the patient or their legal senior account representative has been informed of the risks [...] prior to the next appointment due to mcc use of Lexapro. Follow up in December. [...] thoughts. She went to the ER at [facility] 2 nights ago. Counseling center came over [...] which included preparing to see the patient, muvm-rz-bmde patient care, completing clinical documentation, and counseling and educating the patient/family/caregiver, ordering medications/labs. Laurie Serra APRN.CNP November 20, 2022 10:59 AM This note was partially generated using [email or web address] voice recognition system. Note was reviewed for accuracy. There may be minor misspellings or grammar miscues with [email or web address] voice recognition. documented in this encounter [facility] 11-20-2022 Emergency department Note Pt was discharged without her prescriptions. Voice message was left for pt and her spouse regarding prescriptions. Cinthia Angulo RN 11/20/22 013 [facility] 11-20-2022 Emergency department Note Pt was [...] 11/19/22 2332 Patient given bagged lunch from [employer]UR BLOWER OPERATOR MILES Elena 11/19/222300 Patient has 3 bags [...] MILES Elena 11/19/222155 Registration at patient bedside MILSE Elena 11/19/222135 Dr. Darling at patient bedside [...] Darling MD 11/19/222138 documented in this encounter [facility] 11-20-2022 Hospital Discharg e instructions Yulia [...] harm of others. documented in this encounter [facility] 11-20-2022 Emergency department Note In 47 getting dressed for discharge Barbara Beck 11/20/22 0117 [facility] 11-20-[address] Donald at bedside Barbara Beck 11/20/22 0056 [facility] 11-20-2022 Emergency department Note Pt resting in room. Respirations even and non labored. at bedside. Cinthia Angulo RN 11/20/22 0028 [facility] 11-19-2022 Emergency department Note Pt out to restroom to provide urine sample Barbara Beck 11/19/22 2346 [facility] 11-19-2022 Emergency department Note Sophia RN at bedside to medicate Barbara Beck 11/19/22 2332 [facility] 11-19-2022 Emergency department Note Patient given bagged lunch from [employer] Sterling 11/19/22 2301 [facility] 11-19-2022 Emergency department Note Patient has 3 bags of belongings. MILES Elena 11/19/222256 [facility] 11-19-2022 Emergency department Note Protective services at patient bedside offering patient cup of water. MILES Elena 11/19/222253 [facility] 11-19-2022 Emergency department Note Physician is at patient bedside MILES Elena 11/19/222233 [facility] 11-19-2022 Note NOTE: This result is for medical treatment only. Analysis performed using non-forensic procedures. [facility] 11-19-2022 Emergency department Note Patient has 3 bag of belongings. Patient was wanded and changed into two gowns. MILES Elena 11/19/222203 [facility] 11-19-2022 Emergency department Note EKG at patient bedside MILES Elena 11/19/222155 [facility] 11-19-2022 Emergency department Note Registration at patient bedside MILES Elena 11/19/222155 [facility] 11-19-2022 Emergency department Note Registration at patient bedside MILES Elena 11/19/222135 [facility] 11-19-[address] Darling at patient bedside MILES Elena 11/19/222131 [facility] 11-19-2022 Emergency department Note Physician at patient bedside MILES Elena 11/19/222115 [facility] 11-19-2022 Emergency department Note Pt changed into gowns. Protective Services secured pt's belongings. Pt was wanded. Cinthia Angulo RN 11/19/222110 [facility] 11-19-2022 Physician Emergency department Note Emergency Department Encounter [facility] EMERGENCY DEPT Patient: Smita Lebron : 1995 [...] [employer] Lukas Darling MD 11/19/222138 [employer] Phone: 11-19-2022 Hospital Discharg e instructions Patient [...] relieved by rest and mild pain reliever [phone] [employer]. [address] [place] [address]. All rights reserved. This information is not intended as a substitute for professional medical care. Always follow your healthcare professional's instructions. Follow Up Care 11/18/2022 23:22:21 With:[facility] Address: When:2-4 days [facility] 11-19-2022 Note Discharge Instructions Thank you for allowing [facility] to assist you with your healthcare needs. The following is important discharge information regarding your hospital visit. Diagnosis from Today's Visit Anxiety Psychiatric screening exam What to Do Next Instructions from Your Care Team No qualifying data available. Post Acute Orders No qualifying data available. You Need to Schedule the Following Appointments Follow Up with [facility] When Within 2-4 days Where: Allergies Amoxil [...] relieved by rest and mild pain reliever [phone] [employer]. [address] [place] [address]. All rights reserved. This information is not intended as a substitute for professional medical care. Always follow your healthcare professional's instructions. Additional Information VACCINATE! IT SAVES LIVES! Members of the community who have not yet received the COVID-19 vaccine and would like to receive it can visit one of [facility] vaccine clinics. There are many vaccine clinic locations within the [facility]. For locations and available times, please visit [email or web address] It is important to note that some COVID mobile vaccine clinics are held outdoors and may be canceled in rainy or stormy conditions. To learn more about pediatric vaccinations (ages 5-11), we invite you to visit the [facility] webpage. [email or web address] To learn more about the COVID-19 vaccine, we invite you to visit the CDC website for a list of frequently asked questions. https://www.cdc.gov/coronavirus/ 2019-ncov/vaccines/faq.html [email or web address] Patient [facility] Access Instructions: Stay connected with your healthcare team and access your personal medical information anytime with the [email or web address] Patient Portal. If you would like a full copy of your medical records please contact the [facility] Department Sunday through Sunday between 8a.m. and 4:30p.m. Please follow the directions below to access the portal: 1.Access the email account you provided upon registration to the [facility].2.Look for an invitation email from [facility].3.Open the email and access the invitation link: Accept Invitation to [email or web address].Fill in the required zuniga to create your [...] you will allow to register on the [email or web address] Patient Portal for access to your information. You can also access the [email or web address] Patient Portal on the Inf[employer] jaci. Simply click on Health Records under [...] Call your local pharmacy or go to [email or web address] to find one close to you.3.Make use of household items: Use cat litter or old coffee grounds to dispose medications if other options are not available. Mix your drugs with these household products, seal them in an airtight container and throw it into the garbage. Call [facility]: [phone] to be sure your drugs can be [...] aware that I should contact my doctor. 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 Signature: Date/Time: Relationship to Patient: Witness Name/Signature: Date/Time: [facility] 11-18-2022 Note Sinus rhythm RSR' in V1 or V2, probably normal variant Borderline T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 regulations: The Federal rules restrict any use of the information to criminally investigate or prosecute any alcohol or drug abuse patient.[facility] HospitalIn the event this information is protected by the Federal Confidentiality of Alcohol and Drug Abuse Patient Records regulations: The Federal rules restrict any use of the information to criminally investigate or prosecute any alcohol or drug abuse patient.[facility] HospitalIn the event this information is protected by the Federal Confidentiality of Alcohol and Drug Abuse Patient Records regulations: The Federal rules restrict any use of the information to criminally investigate or prosecute any alcohol or drug abuse patient.[facility] HospitalIn the event this information is protected by the Federal Confidentiality of Alcohol and Drug Abuse Patient Records regulations: The Federal rules restrict any use of the information to criminally investigate or prosecute any alcohol or drug abuse patient.[facility] HospitalIn the event this information is protected by the Federal Confidentiality of Alcohol and Drug Abuse Patient Records regulations: The Federal rules restrict any use of the information to criminally investigate or prosecute any alcohol or drug abuse patient.[facility] HospitalIn the event this information is protected by the Federal Confidentiality of Alcohol and Drug Abuse Patient Records regulations: The Federal rules restrict any use of the information to criminally investigate or prosecute any alcohol or drug abuse patient.[facility] HospitalIn the event this information is protected by the Federal Confidentiality of Alcohol and Drug Abuse Patient Records regulations: The Federal rules restrict any use of the information to criminally investigate or prosecute any alcohol or drug abuse patient.[facility] HospitalIn the event this information is protected by the Federal Confidentiality of Alcohol and Drug Abuse Patient Records regulations: The Federal rules restrict any use of the information to criminally investigate or prosecute any alcohol or drug abuse patient.[facility] HospitalIn the event this information is protected by the Federal Confidentiality of Alcohol and Drug Abuse Patient Records regulations: The Federal rules restrict any use of the information to criminally investigate or prosecute any alcohol or drug abuse patient.[facility] HospitalIn the event this information is protected by the Federal Confidentiality of Alcohol and Drug Abuse Patient Records regulations: The Federal rules restrict any use of the information to criminally investigate or prosecute any alcohol or drug abuse patient.[facility] HospitalIn the event this information is protected by the Federal Confidentiality of Alcohol and Drug Abuse Patient Records regulations: The Federal rules restrict any use of the information to criminally investigate or prosecute any alcohol or drug abuse patient.[facility] HospitalIn the event this information is protected by the Federal Confidentiality of Alcohol and Drug Abuse Patient Records regulations: The Federal rules restrict any use of the information to criminally investigate or prosecute any alcohol or drug abuse patient.[facility] HospitalIn the event this information is protected by the Federal Confidentiality of Alcohol and Drug Abuse Patient Records regulations: The Federal rules restrict any use of the information to criminally investigate or prosecute any alcohol or drug abuse patient.[facility] HospitalIn the event this information is protected by the Federal Confidentiality of Alcohol and Drug Abuse Patient Records regulations: The Federal rules restrict any use of the information to criminally investigate or prosecute any alcohol or drug abuse patient.[facility] HospitalIn the event this information is protected by the Federal Confidentiality of Alcohol and Drug Abuse Patient Records regulations: The Federal rules restrict any use of the information to criminally investigate or prosecute any alcohol or drug abuse patient.[facility] HospitalIn the event this information is protected by the Federal Confidentiality of Alcohol and Drug Abuse Patient Records regulations: The Federal rules restrict any use of the information to criminally investigate or prosecute any alcohol or drug abuse patient.[facility] HospitalIn the event this information is protected by the Federal Confidentiality of Alcohol and Drug Abuse Patient Records regulations: The Federal rules restrict any use of the information to criminally investigate or prosecute any alcohol or drug abuse patient.[facility] HospitalIn the event this information is protected by the Federal Confidentiality of Alcohol and Drug Abuse Patient Records regulations: The Federal rules restrict any use of the information to criminally investigate or prosecute any alcohol or drug abuse patient.[facility] HospitalIn the event this information is protected by the Federal Confidentiality of Alcohol and Drug Abuse Patient Records regulations: The Federal rules restrict any use of the information to criminally investigate or prosecute any alcohol or drug abuse patient.[facility] HospitalIn the event this information is protected by the Federal Confidentiality of Alcohol and Drug Abuse Patient Records regulations: The Federal rules restrict any use of the information to criminally investigate or prosecute any alcohol or drug abuse patient.[facility] HospitalIn the event this information is protected by the Federal Confidentiality of Alcohol and Drug Abuse Patient Records regulations: The Federal rules restrict any use of the information to criminally investigate or prosecute any alcohol or drug abuse patient.[facility] HospitalIn the event this information is protected by the Federal Confidentiality of Alcohol and Drug Abuse Patient Records regulations: The Federal rules restrict any use of the information to criminally investigate or prosecute any alcohol or drug abuse patient.[facility] HospitalIn the event this information is protected by the Federal Confidentiality of Alcohol and Drug Abuse Patient Records regulations: The Federal rules restrict any use of the information to criminally investigate or prosecute any alcohol or drug abuse patient.[facility] HospitalIn the event this information is protected by the Federal Confidentiality of Alcohol and Drug Abuse Patient Records regulations: The Federal rules restrict any use of the information to criminally investigate or prosecute any alcohol or drug abuse patient.[facility] HospitalIn the event this information is protected by the Federal Confidentiality of Alcohol and Drug Abuse Patient Records regulations: The Federal rules restrict any use of the information to criminally investigate or prosecute any alcohol or drug abuse patient.[facility] HospitalIn the event this information is protected by the Federal Confidentiality of Alcohol and Drug Abuse Patient Records regulations: The Federal rules restrict any use of the information to criminally investigate or prosecute any alcohol or drug abuse patient.[facility] HospitalIn the event this information is protected by the Federal Confidentiality of Alcohol and Drug Abuse Patient Records regulations: The Federal rules restrict any use of the information to criminally investigate or prosecute any alcohol or drug abuse patient.[facility] HospitalIn the event this information is protected by the Federal Confidentiality of Alcohol and Drug Abuse Patient Records regulations: The Federal rules restrict any use of the information to criminally investigate or prosecute any alcohol or drug abuse patient.[facility] HospitalIn the event this information is protected by the Federal Confidentiality of Alcohol and Drug Abuse Patient Records regulations: The Federal rules restrict any use of the information to criminally investigate or prosecute any alcohol or drug abuse patient.[facility] HospitalIn the event this information is protected by the Federal Confidentiality of Alcohol and Drug Abuse Patient Records regulations: The Federal rules restrict any use of the information to criminally investigate or prosecute any alcohol or drug abuse patient.[facility] HospitalIn the event this information is protected by the Federal Confidentiality of Alcohol and Drug Abuse Patient Records regulations: The Federal rules restrict any use of the information to criminally investigate or prosecute any alcohol or drug abuse patient.[facility] Care Teams (unrecognized sec tion and content) Stamp Pad Maker Relationship Specialty Start Date End Date Pratima Ontiveros CNP [address] [place] [id number] PCP - General Family Medicine 12/30/18 Stamp Pad Maker Relationship Specialty Start Date End Date Pratima Ontiveros CNP [address] [place] [address] PCP - General Family Medicine 12/30/18 Stamp Pad Maker Relationship Specialty Start Date End Date Pratima Ontiveros CNP [address] [place] [address] PCP - General Family Medicine 12/30/18 Stamp Pad Maker Relationship Specialty Start Date End Date Pratima Ontiveros CNP [address] [place] [address] PCP - General Family Medicine 12/30/18 Stamp Pad Maker Relationship Specialty Start Date End Date Pratima Ontiveros CNP [address] [place] [address] PCP - General Family Medicine 12/30/18 Stamp Pad Maker Relationship Specialty Start Date End Date Pratima Ontiveros CNP [address] [place] [address] PCP - General Family Medicine 12/30/18 Stamp Pad Maker Relationship Specialty Start Date End Date Pratima Ontiveros [address] [place] [address] PCP - General Nurse Practitioner [facility] 11/19/22 Stamp Pad Maker Relationship Specialty Start Date End Date Pratima Ontiveros CNP [address] [place] [address] PCP - General Family Medicine 12/30/18 Stamp Pad Maker Relationship Specialty Start Date End Date Pratima Ontiveros CNP [address] [place] [address] (Work) PCP - General Family Medicine 12/30/18 Stamp Pad Maker Relationship Specialty Start Date End Date Pratima Ontiveros CNP [address] [place] [address] PCP - General Family Medicine 12/30/18 Stamp Pad Maker Relationship Specialty Start Date End Date Pratima Ontiveros CNP [address] [phone] PCP - General Family Medicine 12/30/18 Stamp Pad Maker Relationship Specialty Start Date End Date Pratima Ontiveros CNP [address] [place], [place] [id number] PCP - General Family Medicine 12/30/18 Stamp Pad Maker Relationship Specialty Start Date End Date Pratima Ontiveros CNP [address] [place], [place] [phone] PCP - General Family Medicine 12/30/18 Stamp Pad Maker Relationship Specialty Start Date End Date Pratima Ontiveros CNP [address] [place], [place] [phone] PCP - General Family Medicine 12/30/18 Stamp Pad Maker Relationship Specialty Start Date End Date Pratima Ontiveros CNP [address] [place], [place] [phone] PCP - General Family Medicine 12/30/18 Stamp Pad Maker Relationship Specialty Start Date End Date Pratima Ontiveros CNP [address] [place], [place] [phone] PCP - General Family Medicine 12/30/18 Stamp Pad Maker Relationship Specialty Start Date End Date Pratima Ontiveros CNP [address] [place], [place] [id number] PCP - General Family Medicine 12/30/18 Stamp Pad Maker Relationship Specialty Start Date End Date Pratima Ontiveros CNP [facility] [place] [address] PCP - General Family Medicine 12/30/18 Stamp Pad Maker Relationship Specialty Start Date End Date Pratima Ontiveros CNP [address] [place] [address] PCP - General Family Medicine 12/30/18 Stamp Pad Maker Relationship Specialty Start Date End Date Pratima Ontiveros CNP [address] [place] [phone] PCP - General Family Medicine 12/30/18 Stamp Pad Maker Relationship Specialty Start Date End Date Pratima Ontiveros CNP [address] [place], [place] [phone] PCP - General Family Medicine 12/30/18 Stamp Pad Maker Relationship Specialty Start Date End Date Pratima Ontiveros CNP [address] [place] [phone] PCP - General Family Medicine 12/30/18 Stamp Pad Maker Relationship Specialty Start Date End Date Pratima Ontiveros CNP [address] [place] [phone] PCP - General Family Medicine 12/30/18 Stamp Pad Maker Relationship Specialty Start Date End Date Pratima Ontiveros CNP [address] [place] [phone] PCP - General Family Medicine 12/30/18 Stamp Pad Maker Relationship Specialty Start Date End Date Pratima Ontiveros CNP [address] [place] [phone] PCP - General Family Medicine 12/30/18 Stamp Pad Maker Relationship Specialty Start Date End Date Pratima Ontiveros CNP [address] [place] [phone] PCP - General Family Medicine 12/30/18 Stamp Pad Maker Relationship Specialty Start Date End Date Pratima Ontiveros CNP [address] [place] [phone] PCP - General Family Medicine 12/30/18 Stamp Pad Maker Relationship Specialty Start Date End Date Pratima Ontiveros CNP [address] [place] [phone] PCP - General Family Medicine 12/30/18 Stamp Pad Maker Relationship Specialty Start Date End Date Pratima Ontiveros APRN.TUMBLING BARREL PAINTER PCP - General Family Medicine 12/30/18 Stamp Pad Maker Relationship Specialty Start Date End Date Pratima Ontiveros APRN.DAVY PCP - General Family Medicine 12/30/18 Stamp Pad Maker Relationship Specialty Start Date End Date Pratima Ontiveros APRN.TUMBLING BARREL PAINTER PCP - General Family Medicine 12/30/18 Stamp Pad Maker Relationship Specialty Start Date End Date Pratima Ontiveros APRN.DAVY PCP - General Family Medicine 12/30/18 Stamp Pad Maker Relationship Specialty Start Date End Date Pratima Ontiveros APRN.DAVY PCP - General Family Medicine 12/30/18 Stamp Pad Maker Relationship Specialty Start Date End Date Pratima Ontiveros, TUCK POINTER.TUMBLING BARREL PAINTER PCP - General Family Medicine 12/30/18 Stamp Pad Maker Relationship Specialty Start Date End Date Pratima Ontiveros, TUCK POINTER.TUMBLING BARREL PAINTER PCP - General Family Medicine 12/30/18 Stamp Pad Maker Relationship Specialty Start Date End Date Pratima Ontiveros, TUCK POINTER.TUMBLING BARREL PAINTER PCP - General Family Medicine 12/30/18 Stamp Pad Maker Relationship Specialty Start Date End Date Pratima Ontiveros, TUCK POINTER.TUMBLING BARREL PAINTER PCP - General Family Medicine 12/30/18 Stamp Pad Maker Relationship Specialty Start Date End Date Pratima Ontiveros, TUCK POINTER.TUMBLING BARREL PAINTER PCP - General Family Medicine 12/30/18 Reason for Visit (unrecogniz ed section and content) Reason Comments DUB Reason Comments Cell Plasterer Exam Reason Onset Date Comments Refill Request [...] weeks Procedures VIDEO PSYC/PSYL EST Laurie Serra, TUCK POINTER.TUMBLING BARREL PAINTER [address] [place] [address] Laurie Serra, TUCK POINTER.TUMBLING BARREL PAINTER [address] [place] [address] Referral ID Status Reason Start Date Expiration Date V isits Requested Visits Authorized [id number] Pending Review 12/15/2022 03/15/2023 1 1 Reason Comments Follow Up OCD/FREDO/depression Specialty Diagnoses / Procedures Referred By Contac t Referred To Contact Psychiatry / ADULT PSYCHIATRY Diagnoses follow up 2 months Procedures EST PSYC ADULT Laurie Serra, TUCK POINTER.TUMBLING BARREL PAINTER [address] [place] [address] Laurie Serra, TUCK POINTER.[facility] [address] [place] [address] Referral ID Status Reason Start Date Expiration Date V isits Requested Visits Authorized [id number] Pending Review 01/09/2023 04/09/2023 1 1 Reason Onset Date Comments Refill Request 01/14/2023 Reason Comments Medication Problem Specialty Diagnoses / Procedures Referred By Contac t Referred To Contact Psychiatry / ADULT PSYCHIATRY Diagnoses follow up Procedures VIDEO PSYC/PSYL EST Laurie Serra, TUCK POINTER.[facility] [address] [place] [address] Laurie Serra, TUCK POINTER.[facility] [address] [place] [address] Referral ID Status Reason Start Date Expiration Date V isits Requested Visits Authorized [id number] Pending Review 01/22/2023 04/22/2023 1 1 Reason Comments Yearly Exam Reason Onset Date Comments Refill Request 02/15/2023 Reason Comments Discussion Reason Comments Consult Reason Comments Irregular Menstrual Cycle Reason Comments Discussion Trying to conceive Referral ID Status Reason Start Date Expiration Date V isits Requested Visits Authorized [id number] New Request 01/25/2024 04/24/2024 1 1 Reason Comments Well Woman Specialty Diagnoses / Procedures Referred By Contac t Referred To Contact Psychiatry / ADULT PSYCHIATRY Diagnoses follow up Procedures VIDEO PSYC/PSYL EST Laurie Serra, TUCK POINTER.TUMBLING BARREL PAINTER [address] [place] [address] Laurie Serra, TUCK POINTER.TUMBLING BARREL PAINTER [address] [place] [address] Referral ID Status Reason Start Date Expiration Date V isits Requested Visits Authorized [id number] New Request 03/06/2024 06/04/2024 1 1 Reason Onset Date Comments Refill Request 03/11/2024 Reason Comments Vaginal Problem Urinary Problem Reason Comments Results Reason Onset Date Comments Refill Request 05/29/2024 Specialty Diagnoses / Procedures Referred By Contac t Referred To Contact Psychiatry / ADULT PSYCHIATRY Diagnoses Patient Loosing insurance at end of month and request visit Procedures VIDEO PSYC/PSYL EST Laurie Serra, TUCK POINTER.TUMBLING BARREL PAINTER [address] [place] [address] Phone: tel: fax: Laurie Serra, TUCK POINTER.TUMBLING BARREL PAINTER [address] [place] [address] Phone: tel: fax: Referral ID Status Reason Start Date Expiration Date V isits Requested Visits Authorized [id number] New Request 06/23/2024 09/21/2024 1 1 Reason Comments New OB/ First OB Reason Onset Date Comments Care 08/15/2024 Reason Comments US Specialty Diagnoses / Procedures Referred By Contac t Referred To Contact [facility] [place] Diagnoses with uncertain dates in first trimester (HCC) care, first in first trimester (HCC) Procedures OBSTETRIC ULTRASOUND WHI US PREG UTERUS AFTER 1ST TRIMEST GESTATION Yasmeen Vera, TUCK POINTER.TUMBLING BARREL PAINTER [address] [place] [address] Phone: tel: fax: [facility] [address] [address] Referral ID Status Reason Start Date Expiration Date V isits Requested Visits Authorized [id number] Closed Auto-Generate d Referral 07/18/2024 07/18/2025 1 [...] up Procedures [facility] Laurie Serra, MELANIE.TUMBLING BARREL PAINTER [address] [place] [address] Phone: tel: fax: Laurie Serra, TUCK POINTER.TUMBLING BARREL PAINTER [address] [place] [address] Phone: tel: fax: Referral ID Status Reason Start Date Expiration Date V isits Requested Visits Authorized [id number] New Request 10/28/2024 01/26/2025 1 1 Reason Comments Care Reason Comments Orders Breast pump Reason Onset Date Comments Care 11/26/2024 Reason Onset Date Comments Care 12/10/2024 Care Team (unrecognized sect ion and content) Care Team Personnel Name: PRATIMA ONTIVEROS TUCK POINTER-TUMBLING BARREL PAINTER Position: P4 Advanced Crm Specialist Member Role: Primary Care Physician Address: Address: [address] [place] [address] Care Team Related Persons Name: CAMRON LBERON Scheduled Active and Recently Administ ered Medications [...] BE BASED ON THE PRIMARY CLINICAL RECORDS. [employer] [facility]. provides no warranty or guarantee of the accuracy or completeness of information in this document.
[2025-01-18 18:25] VITALS: BMI 32.0
[2025-01-18 18:30] VITALS: BP 113/74; PULSE 65; RESP 16; TEMP 37.1; O2SAT 97
--- NOTE | 2025-01-30 08:55 | OB.TRI.HP_ITS ---
HPI - General General Date of Admission: 01/18/25 Date of Service: 01/18/25 Chief Complaint: decreased movement HPI Narrative SMITA NGUYEN, is a 29 F who presents for decreased FM. Maternal Data Information Final ENE: 02/22/25 Gestational age: 35 weeks PFSH PFSH Home Medications ?Medication ?Instructions ?Recorded ?Last Taken ?Type aspirin 81 mg chewable tablet 81 mg PO DAILY 01/18/25 01/17/25 History (Aspirin Childrens) escitalopram oxalate 20 mg tablet 30 mg PO DAILY Menta l 01/18/25 01/17/25 History (Lexapro) vitamins no.102-iron 90 1 cap PO DAILY Pregna ncy 01/18/25 01/17/25 History mg-folate 1 mg-dha 200 mg capsule Allergy/AdvReac Type Severity Reaction Status Date / Time azithromycin Allergy Severe Rash Verified 01/18/25 18:22 morphine Allergy Severe Vomiting Verified 01/18/25 18:22 erythromycin base Allergy Intermediate Rash Verified 01/18/25 18:22 Sulfa (Sulfonamide Allergy Intermediate Hives Verified 01/18/25 18:22 Antibiotics) buspirone (From BuSpar) AdvReac Severe Other Verified 01/18/25 18:22 ceftriaxone AdvReac Intermediate Other Verified 01/18/25 18:22 NST FHR Rate Baby A Baseline: 130 Variability:: Moderate Accelerations:: 15 x 15 Decelerations:: None NST Reactive:: Yes Uterine Activity:: no regular ctxs Assessment & Plan (1) 35 weeks gestation of : PLAN: NST reactive. D/c home w/ kick counts, f/u prn or as scheduled (2) Decreased movements, third trimester, fetus 1:
== END 2025-01-18 19:19 | disposition home or self-care (01) ==
LOC: WPOUT 18:16 → WP 18:17
PROVIDERS: PCP Nurse Practitioner Family; Referring Provider Advanced Practice Midwife; Visit Provider Advanced Practice Midwife
DX: O36.8130 Decreased fetal movements, third trimester, not applicable or unspecified (principal); Z3A.35 35 weeks gestation of pregnancy
CPT/HCPCS: 59025; 59050; 99221; G0378

== ENCOUNTER 2025-01-27 18:01 | Outpatient (CLI) | payer OTHER, SELFPAY | END 2025-01-27 19:03 | disposition home or self-care (01) | LOC: WPOUT 18:03 → WP 18:05 | PROVIDERS: PCP Nurse Practitioner Family; Referring Provider Advanced Practice Midwife; Visit Provider Advanced Practice Midwife | DX: Z39.1 Encounter for care and examination of lactating mother (principal) | CPT/HCPCS: 96158; 96159 ==

== ENCOUNTER 2025-02-25 22:05 | Inpatient (IN) | payer OTHER, SELFPAY ==
[2025-02-25 21:33] VITALS: BMI 33.2
--- OUTSIDE RECORDS SUMMARY | 2025-02-25 21:34 | XMS RPT_ITS | CCD ---
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 29 year old female who presents at 35 weeks gestation for a routine visit/centering group. Seen in [place] yesterday for decreased movements. NST's reactive. Has felt movements since. Planning on getting massages and needs an order printed out. Denies headache, visual changes, chest pain, shortness of breath, vaginal bleeding, leakage of fluid, or dysuria. Feeling well, no complaints. O: See flow sheet Gen: No apparent distress Abd: Gravid, nontender ASSESSMENT/PLAN: 1. Supervision of normal first , antepartum 2. 35 weeks gestation of (HCC) - ICD9: V22.2, ICD10: Z3A.35 3. History of depression 4. History of anxiety - Massage therapy - Continue vitamin - Continue Lexapro 20 mg PO Daily - Mood stable - PTL precautions and kick counts reviewed - RTO 1 week for GBS/TAUS for position Hoda Hager APRN.CNM Allergies As of Date: 01/21/2025 Noted Allergy Reaction SULFAMETHOXAZOLE-T RIMETHOPRIM 09/26/2016 2 - Rash AZITHROMYCIN 10/30/2023 2 - Rash 4 - Hives 8 - GI Upset BUSPIRONE 01/29/2023 1 - Mental Status Change CEFTRIAXONE 01/08/2015 14 - Other: See Comments ERYTHROMYCIN BASE 05/17/2015 2 - Rash MORPHINE 05/02/2022 8 - GI Upset Date Reviewed: 01/21/2025 Reviewed by: Jason Umanzor LPN - Fully Assessed Reason for Visit: Care [86] Primary Visit Diagnosis:Supervis ion of normal first , antepartum (HCC) [Z34.00] Other Visit Diagnoses:35 weeks gestation of (HCC) [Z3A.35] History of depression [Z86.59] History of anxiety [Z86.59] Order(s):URINE OB DIP B/O [3971157] Order #: [id number] CONSULT TO MASSAGE THERAPY [6124684] Order #: [id number]: 1 FUTURE MASSAGE THERAPY [94810MIL] Order #: [id number] Prescriptions as of 01/21/2025 - omega-3 DHA-EPA (FISH OIL) 1,200 (144-216) mg capsule Take 1 capsule by mouth daily with breakfast. - escitalopram oxalate (LEXAPRO) 20 mg tablet Take 1.5 tablets by mouth once daily. - aspirin, enteric coated (ECOTRIN LOW STRENGTH) 81 mg EC tablet Take 1 tablet by mouth once daily. - no115/iron/folic acid ( 19 ORAL) Take by mouth once daily. [facility] - SACCHAROMYCES BOULARDII ORAL - INOSITOL ORAL - cholecalciferol, vitamin D3, (VITAMIN D3 ORAL) - MAGNESIUM GLYCINATE, BULK, MISC Problem List As Of Date 01/21/2025 Noted Resolved TMJ (temporomandibular joint syndrome) [M26.609] 9 Supervision of normal first , antepart* History of Lyme disease [Z86.19] 08/15/2024 Depression [F32.A] History of anxiety [Z86.59] 12/10/2024 Notes for Staff Will only call if abnormal O (more content not included)... Normal [facility] 01-10-2025 Cotinine Lvl <1.0 [facility] Comment on above: Result Comment: This test was developed and its performance characteristics determined by [employer]. It has not been cleared or approved by the Food and Drug Administration. Cotinine levels greater than 20.0 are consistent with the use of tobacco or tobacco cessation products. Performed At: [address] [id number] Dheeraj Campbell MD Ph:[phone] Performed By: #### 0 [id number] #### [address] [address] Nicotine Lvl <1.0 [facility] Comment on above: Result Comment: This test was developed and its performance characteristics determined by [employer]. It has not been cleared or approved by the Food and Drug Administration. Nicotine levels greater than 2.0 are consistent with the use of tobacco or tobacco cessation products. Performed By: #### 0 [id number] #### [address] [place], [place] [address] CNOVon 01-07-2025 CNOV Office Visit (OBGYWM) -------- SMITA NGUYEN ([id number]) 1995 F Date Time Provider Department 01/07/25 2:30 PM NST ROOM [facility] WSTR OBGYWM During your visit today, we recorded the following information about you: Blood pressure Weight 116/71 89.4 kg Hoda Hager APRN.CNM 01/07/2025 3:23 PM Signed S: Smita Nguyen is a 29 year old female who presents at 33 weeks gestation for centering/routine visit. Decreased movements since last night. Placed on NST. NST reactive. No contractions. C/O increased anxiety and started taking [place] supplements- 1250 mg per psych. EDITORIAL WRITER recommendation. Denies headache, visual changes, chest pain, [...] precautions - RTO 2 weeks or sooner ADELFO Yeung Toni, LPN 01/07/2025 2:12 PM Signed SEQUENTIAL SCREENINGS [facility] offers sequential screenings for women who [...] It will require an appointment with our oscillograph technician. This is not an ultrasound performed [...] the above symptoms, contact our office at [phone] and ask to speak with a nurse. After hours, you can call doctors registry at [phone] OR call [facility] at [phone] and ask to have the doctor carbon furnace operator paged. If you consider this an emergency, dial 3-3-8 or go to your nearest emergency department. NEED HELP? Are you dealing with a violent or abusive relationship? Are you a victim of rape or sexual assult? Call [facility] ([place]) 24 hour Crisis Hotline: 667.616.6853 or 933-838-3171. MANUAL Your Guide to a Healthy manual is now on-line. Visit [facility].or g/HealthyPregnancy Guide to download your free copy Hoda [...] [Z34.00] Other Visit Diagnoses:33 weeks gestation of (HCC) [Z3A.33] History of depression [Z86.59] History of anxiety [Z86.59] Decreased movements in third trimester, single or unspecified fetus (HCC) [O36.8130] Prescriptions as of 01/07/2025 - omega-3 [...] 19 ORAL) Take by mouth once daily. [facility] - SACCHAROMYCES BOULARDII ORAL - INOSITOL ORAL - cholecalciferol, vitamin D3, (VITAMIN D3 ORAL) - MAGNESIUM GLYCINATE, BULK, MISC Problem List As Of Date (more content not included)... Normal [facility] LABORATORYOrdered By: [employer] P CONTRIBUTOR_SYSTEM on 01-06-2025 Cotinine Lvl (LC) ng/mL Invalid Interpretation Code AO Sendouts SS Comment on above: Result Comment: This test was developed and its performance characteristics determined by [employer]. It has not been cleared or approved by the Food and Drug Administration. Cotinine levels greater than 20.0 are consistent with the use of tobacco or tobacco cessation products. [facility]formed At[facility] [address] [place], [place] [id number] Dheeraj Campbell MD Ph:[phone] Nicotine Lvl (LC) ng/mL Invalid Interpretation Code AO Sendouts SS Comment on above: Result Comment: This test was developed and its performance characteristics determined by [employer]. It has not been cleared or approved by the Food and Drug Administration. Nicotine levels greater than 2.0 are consistent with the use of tobacco or tobacco cessation products. CNOVon 12-24-2024 CNOV Office Visit (OBGYWM) -------- SMITA NGUYEN ([id number]) 1995 F Date Time Provider Department 12/24/24 2:30 PM HODA HAGER OBELLE During your visit today, we recorded [...] GCT normal - Patient requesting hormone testing "now because she feels the best mood/hormonal gauthier". She wants to know current hormone levels- [...] Diagnosis:Supervis ion of normal first , antepartum ([facility]) [Z34.00] Other Visit Diagnoses:History of depression [Z86.59] [...] 19 ORAL) Take by mouth once daily. [facility] - SACCHAROMYCES BOULARDII ORAL - INOSITOL ORAL - cholecalciferol, vitamin D3, (VITAMIN D3 ORAL) - MAGNESIUM GLYCINATE, BULK, MISC Problem List As Of Date 12/24/2024 Noted Resolved TMJ (temporomandibular joint syndrome) [M26.609] 9 Supervision of normal first , antepart* 5 History of Lyme disease [Z86.19] 08/15/2024 Depression [F32.A] History of anxiety [Z86.59] 12/10/2024 Encounter Status:Closed by HODA HAGER on 12/24/24 Normal [facility] CNOVon 12-10-2024 CNOV Office Visit (OBGYWM) -------- WENDYESMEY ([id number]) 1995 F Date Time Provider Department 12/10/24 2:30 PM CAMELIA HERRERA OBSUJITWM During your visit today, we recorded the following information about you: Blood pressure Weight 120/60 86.2 kg Camelia Herrera APRN.CNM 12/10/2024 3:59 PM Signed ESAU-S: Smita Nguyen is a [...] 12/10/2024 2:36 PM Signed SEQUENTIAL SCREENINGS [facility] offers sequential screenings for women who [...] It will require an appointment with our oscillograph technician. This is not an ultrasound performed [...] the above symptoms, contact our office at [phone] and ask to speak with a nurse. After hours, you can call doctors registry at [phone] OR call [facility] at [phone] and ask to have the doctor carbon furnace operator paged. If you consider this an emergency, dial 1--6 or go to your nearest emergency department. NEED HELP? Are you dealing with a violent or abusive relationship? Are you a victim of rape or sexual assult? Call [facility] ([place]) 24 hour Crisis Hotline: 676.236.8787 or 794-379-1253. MANUAL Your Guide to a Healthy manual is now on-line. Visit [facility]or g/HealthyPregnancy Guide to download your free copy [...] [Z34.00] Other Visit Diagnoses:29 weeks gestation of (HCC) [Z3A.29] History of depression [Z86.59] History of anxiety [Z86.59] Prescriptions as of 12/10/2024 - escitalopram oxalate (LEXAPRO) 20 mg tablet Take 1.5 tablets by mouth once daily. - aspirin, enteric coated (ECOTRIN LOW STRENGTH) 81 mg EC tablet Take 1 tablet by mouth once daily. - no115/iron/folic acid ( 19 ORAL) Take by mouth once daily. [facility] - SACCHAROMYCES BOULARDII ORAL - INOSITOL ORAL - cholecalciferol, vitamin D3, (VITAMIN D3 ORAL) - MAGNESIUM GLYCINATE, BULK, MISC Problem List As Of Date 12/10/2024 Noted Resolved TMJ (temporomandibular joint syndrome) [M26.609] 9 Supervision of normal first , antepart* 5 History of Lyme disease [Z86.19] 08/15/2024 Depression [F32.A] History of anxiety [Z86.59] 12/10/2024 Other instructions from your clinician: SEQUENTIAL SCREENINGS [facility] offers sequential screenings for women who [...] are drawn (more content not included)... Normal [facility] CBC W Auto Differential pane l (Bld)on 11-26-2024 Basophils (Bld) [#/Vol] 0.06 10*3/uL Normal <0.11 [facility] Comment on above: Order Comment: Speci men Type: BLOOD SPECIMEN Ordering Facility: [facility] Address: [address] [place] [address] Performed By: #### C RRSCN #### [facility] CLIA [id number] [address] [place] [address] Basophils/100 WBC (Bld) 0.6 % Normal [facility] Comment on above: Order Comment: Speci men Type: BLOOD SPECIMEN Ordering Facility: [facility] Address: [address] [place] [address] Performed By: #### C RRSCN #### [facility] CLIA [id number] [address] [place] [address] Differential cell count method Nom (Bld) Auto Normal [facility] Comment on above: Order Comment: Speci men Type: BLOOD SPECIMEN Ordering Facility: [facility] Address: [address] [place] [address] Performed By: #### C RRSCN #### [facility] CLIA [id number] [address] [place] [address] Eosinophils (Bld) [#/Vol] 0.08 10*3/uL Normal <0.46 [facility] Comment on above: Order Comment: Speci men Type: BLOOD SPECIMEN Ordering Facility: [facility] Address: [address] [place] [address] Performed By: #### C RRSCN #### [facility] CLIA [id number] [address] [place] [address] Eosinophils/100 WBC (Bld) 0.8 % Normal [facility] Comment on above: Order Comment: Speci men Type: BLOOD SPECIMEN Ordering Facility: [facility] Address: [address] [place] [address] Performed By: #### C RRSCN #### [facility] CLIA [id number] [address] [place] [address] Erythrocyte distribution width (RBC) [Ratio] 12.6 % Normal 11.5-15.0 [facility] Comment on above: Order Comment: Speci men Type: BLOOD SPECIMEN Ordering Facility: [facility] Address: [address] [place] [address] Performed By: #### C RRSCN #### [facility] CLIA [id number] [address] [place] [address] Hematocrit (Bld) [Volume fraction] 33.9 % Low 36.0-46.0 [facility] Comment on above: Order Comment: Speci men Type: BLOOD SPECIMEN Ordering Facility: [facility] Address: [address] [place] [address] Performed By: #### C RRSCN #### [facility] CLIA [id number] [address] [place] [address] Hemoglobin (Bld) [Mass/Vol] 11.8 g/dL Normal 11.5-15.5 [facility] Comment on above: Order Comment: Speci men Type: BLOOD SPECIMEN Ordering Facility: [facility] Address: [address] [place] [address] Performed By: #### C RRSCN #### [facility] CLIA [id number] [address] [place] [address] Immature granulocytes (Bld) [#/Vol] 0.12 10*3/uL High <0.10 [facility] Comment on above: Order Comment: Speci men Type: BLOOD SPECIMEN Ordering Facility: [facility] Address: [address] [place] [address] Performed By: #### C RRSCN #### [facility] CLIA [id number] [address] [place] [address] Immature granulocytes/100 WBC (Bld) 1.2 % Normal [facility] Comment on above: Order Comment: Speci men Type: BLOOD SPECIMEN Ordering Facility: [facility] Address: [address] [place] [address] Performed By: #### C RRSCN #### [facility] CLIA [id number] [address] [place] [address] Lymphocytes (Bld) [#/Vol] 2.03 10*3/uL Normal 1.00-4.00 [facility] Comment on above: Order Comment: Speci men Type: BLOOD SPECIMEN Ordering Facility: [facility] Address: [address] [place] [address] Performed By: #### C RRSCN #### [facility] CLIA [id number] [address] [place] [address] Lymphocytes/100 WBC (Bld) 20.2 % Normal [facility] Comment on above: Order Comment: Speci men Type: BLOOD SPECIMEN Ordering Facility: [facility] Address: [address] [place] [address] Performed By: #### C RRSCN #### [facility] CLIA [id number] [address] [place] [address] MCH (RBC) [Entitic mass] 32.0 pg Normal 26.0-34.0 [facility] Comment on above: Order Comment: Speci men Type: BLOOD SPECIMEN Ordering Facility: [facility] Address: [address] [place] [address] Performed By: #### C RRSCN #### [facility] CLIA [id number] [address] [place] [address] MCHC (RBC) [Mass/Vol] 34.8 g/dL Normal 30.5-36.0 [facility] Comment on above: Order Comment: Speci men Type: BLOOD SPECIMEN Ordering Facility: [facility] Address: [address] [place] [address] Performed By: #### C RRSCN #### [facility] CLIA [id number] [address] [place] [address] MCV (RBC) [Entitic vol] 91.9 fL Normal 80.0-100.0 [facility] Comment on above: Order Comment: Speci men Type: BLOOD SPECIMEN Ordering Facility: [facility] Address: [address] [place] [address] Performed By: #### C RRSCN #### [facility] CLIA [id number] [address] [place] [address] Monocytes (Bld) [#/Vol] 0.74 10*3/uL Normal <0.87 [facility] Comment on above: Order Comment: Speci men Type: BLOOD SPECIMEN Ordering Facility: [facility] Address: [address] [place] [address] Performed By: #### C RRSCN #### [facility] CLIA [id number] [address] [place] [address] Monocytes/100 WBC (Bld) 7.3 % Normal [facility] Comment on above: Order Comment: Speci men Type: BLOOD SPECIMEN Ordering Facility: [facility] Address: [address] [place] [address] Performed By: #### C RRSCN #### [facility] CLIA [id number] [address] [place] [address] Neutrophils (Bld) [#/Vol] 7.04 10*3/uL Normal 1.45-7.50 [facility] Comment on above: Order Comment: Speci men Type: BLOOD SPECIMEN Ordering Facility: [facility] Address: [address] [place] [address] Performed By: #### C RRSCN #### [facility] CLIA [id number] [address] [place] [address] Neutrophils/100 WBC (Bld) 69.9 % Normal [facility] Comment on above: Order Comment: Speci men Type: BLOOD SPECIMEN Ordering Facility: [facility] Address: [address] [place] [address] Performed By: #### C RRSCN #### [facility] CLIA [id number] [address] [place] [address] Nucleated RBC (Bld) [#/Vol] 10*3/uL Normal <0.01 [facility] Comment on above: Order Comment: Speci men Type: BLOOD SPECIMEN Ordering Facility: [facility] Address: [address] [place] [address] Performed By: #### C RRSCN #### [facility] CLIA [id number] [address] [place] [address] Nucleated RBC/100 WBC (Bld) [Ratio] 0.0 /100 WBC Normal [facility] Comment on above: Order Comment: Speci men Type: BLOOD SPECIMEN Ordering Facility: [facility] Address: [address] [place] [address] Performed By: #### C RRSCN #### [facility] CLIA [id number] [address] [place] [address] Platelet mean volume (Bld) [Entitic vol] 10.7 fL Normal 9.0-12.7 [facility] Comment on above: Order Comment: Speci men Type: BLOOD SPECIMEN Ordering Facility: [facility] Address: [address] [place] [address] Performed By: #### C RRSCN #### [facility] CLIA [id number] [address] [place] [address] Platelets (Bld) [#/Vol] 219 10*3/uL Normal 150-400 [facility] Comment on above: Order Comment: Speci men Type: BLOOD SPECIMEN Ordering Facility: [facility] Address: [address] [place] [address] Performed By: #### C RRSCN #### [facility] CLIA [id number] [address] [place] [address] RBC (Bld) [#/Vol] 3.69 10*6/uL Low 3.90-5.20 [facility] Comment on above: Order Comment: Speci men Type: BLOOD SPECIMEN Ordering Facility: [facility] Address: [address] [place] [address] Performed By: #### C RRSCN #### [facility] CLIA [id number] [address] [place] [address] WBC (Bld) [#/Vol] 10.07 10*3/uL Normal 3.70-11.00 [facility] Comment on above: Order Comment: Speci men Type: BLOOD SPECIMEN Ordering Facility: [facility] Address: [address] [place] [address] Performed By: #### C RRSCN #### [facility] CLIA [id number] [address] [place] [address] CNOVon 11-26-2024 CNOV Office Visit (OBGYWM) -------- SMITA NGUYEN ([id number]) 1995 F Date Time Provider Department 11/26/24 [...] complaints. Leaving for vacation next week in [place]. O: See flow sheet Gen: No apparent distress Abd: Gravid, nontender ASSESSMENT/PLAN: 1. 27 weeks gestation of 2. Supervision of normal first , antepartum 3. Other depression 4. History of depression - Continue Lexapro 20 mg PO Daily - Continue vitamin and ASA - Traveling via plane to [place] next week- wearing compression stockings and increase [...] 11/26/2024 2:38 PM Signed SEQUENTIAL SCREENINGS [facility] offers sequential screenings for women who [...] It will require an appointment with our oscillograph technician. This is not an ultrasound performed [...] the above symptoms, contact our office at [phone] and ask to speak with a nurse. After hours, you can call doctors registry at [phone] OR call [facility] at [phone] and ask to have the doctor carbon furnace operator paged. If you consider this an emergency, dial 9-1-9 or go to your nearest emergency department. NEED HELP? Are you dealing with a violent or abusive relationship? Are you a victim of rape or sexual assult? Call [facility] ([place]) 24 hour Crisis Hotline: 719.458.2363 or 343-775-4615. MANUAL Your Guide to a Healthy manual is now on-line. Visit [facility].or /HealthyPregnancy Guide to download your free copy [...] 19 ORAL) Take by mouth once daily. [facility] - SACCHAROMYCES BOULARDII ORAL - INOSITOL ORAL - cholecalciferol, vitamin D3, (VITAMIN D3 ORAL) - MAGNESIUM GLYCINATE, BULK, MISC Problem List As Of Date 11/26/2024 Noted Resolved TMJ (temporomandibular joint syndrome) [M26.609] 9 Supervision of normal first , antepart* 5 History of Lyme disease [Z86.19] 08/15/2024 Depression [F32.A] Other instructions from your clinician: SEQUENTIAL SCREENINGS [facility] offe (more content not included)... Normal [facility] GESTATIONAL GLUCOSE SCREEN, 1-HOUR, 50 GRAM, NON-FASTINGon 11-26-2024 Glucose [Mass/Vol] 92 mg/dL Normal 74-134 [facility] Comment on above: Order Comment: Nicole keyes Type: BLOOD SPECIMENOrdering Facility: [facility] Address: [address] [place] [address] Result Comment: [facility] Congress of Obstetricians and Gynecologists (Rock/Corey) guidelines state a gestational diabetes mellitus positive screen is made, in women not previously diagnosed with overt diabetes, when the 1 hr plasma glucose level is equal to or above 140 mg/dL. [facility] Program Director/Traffic Director and [facility] [place] recommends a 135 mg/dL cutoff. Performed By: #### G LTGST ####[facility] [id number] [place] [address] [place] Reagin and Treponema pallidu m IgG and IgM [Interp]on 11-26-2024 T. pallidum IgG+IgM IA Ql (S) Non-Reactive Normal Nonreactive [facility] Comment on above: Order Comment: Nicole keyes Type: BLOOD SPECIMEN Ordering Facility: [facility] Address: [address] [place] [address] Performed By: #### C RRSCN #### [facility] CLIA [id number] [address] [place] [address] Reagin+T pallidum IgG+IgM Se rPl-Impon 11-26-2024 Reagin and Treponema pallidum IgG and IgM [Interp] Cannot exclude recent Treponemal infection if specimen collected within 7-10 days after appearance of suspect lesions or 2-3 weeks after an exposure. Clinical correlation is required. Normal [facility] Comment on above: Order Comment: Speci men Type: BLOOD SPECIMEN Ordering Facility: [facility] Address: [address] [place] [address] Performed By: #### C RRSCN #### [facility] CLIA [id number] [address] [place] [address] CNPNon 11-20-2024 CNPN Telephone (OBGYWM) -------- SMITA NGUYEN ([id number]) 1995 F Date Time Provider Department 11/20/24 CAMELIA HERRERA During your visit today, we recorded the following information about you: Glendy Castaneda LPN 11/20/2024 5:17 PM Signed Breast pump prescription received from [employer]. Order to Mario Alberto Herrera to sign [...] 19 ORAL) Take by mouth once daily. [facility] - SACCHAROMYCES BOULARDII ORAL - INOSITOL ORAL - cholecalciferol, vitamin D3, (VITAMIN D3 ORAL) - MAGNESIUM GLYCINATE, BULK, MISC Problem List As Of Date 11/20/2024 Noted Resolved TMJ (temporomandibular joint syndrome) [M26.609] 9 Supervision of normal first , antepart* 5 History of Lyme disease [Z86.19] 08/15/2024 Depression [F32.A] Encounter Status:Closed by MORA VILLARREAL on 11/24/24 Normal [facility] CNOVon 11-12-2024 CNOV Office Visit (OBGYWM) -------- WENDYSMITA ([id number]) 1995 F Date Time Provider Department 11/12/24 [...] 19 ORAL) Take by mouth once daily. [facility] - SACCHAROMYCES BOULARDII ORAL - INOSITOL [...] Encounter Status:Closed by CAMELIA HERRERA on 11/12/24 [facility] CNOVon 10-28-2024 CNOV Office Visit (PSWSTR) -------- SMITA NGUYEN ([id number]) 1995 F Date Time Provider Department 10/28/24 11:30 AM LAURIE SERRA PSWSTR During your visit today, we recorded the following information about you: Pulse Blood pressure Weight 70/minute 113/66 81.2 kg JerseymikeLaurie blue, EDITORIAL WRITER.BENDING PRESS OPERATOR 10/28/2024 11:01 PM Signed FOLLOW UP - PSYCHIATRIC PROGRESS NOTE Visit Type:In person Recording using ambient Unified software for draft documentation of the visit was discussed with the patient/authorized uniforms sales representative; all questions welcomed and answered. Patient/authorized uniforms sales representative agreed to proceed CC: Outpatient follow-up and safety monitoring of previously prescribed psychiatric medication, psychotherapy or other treatment HPI: Patient is a 29-year-old female with a history of anxiety, currently 23 weeks , presenting for follow-up. Patient reports feeling the best she has since 2011, describing her mental state as "phenomenal." She attributes this improvement to her current medication regimen, which includes Lexapro 30 mg and inositol. She discontinued progesterone due to recommendations from her midwives at [facility]. She has not needed to use hydroxyzine or Ativan recently but keeps Ativan as a safety net, carrying 1-2 pills with her and keeping the rest at home. She is planning a water at [facility] and is open to alternative delivery [...] during the first trimester. Her sleep is "so-so," but she is not taking any medication [...] child. Her is described as ridiculously laid back" and supportive, with experience around children through his nieces and nephews. She mentions a difficult night in April when she learned of her brother and szfvdn-gf-jeb's , but she became herself in May, [...] 19 ORAL) Take by mouth once daily. [facility] SACCHAROMYCES BOULARDII ORAL INOSITOL ORAL cholecalciferol, [...] Demeanor: Appropria (more content not included)... Normal [facility] CNOVon 10-22-2024 CNOV Office Visit (OBGYWM) -------- SMITA NGUYEN ([id number]) 1995 F Date Time Provider Department 10/22/24 2:30 PM HODA HAGER OBGYWM During your [...] the best she has in a long time". Reports mood elevated and feels great physically. [...] 10/22/2024 2:35 PM Signed SEQUENTIAL SCREENINGS The [facility] offers sequential screenings for women who [...] It will require an appointment with our oscillograph technician. This is not an ultrasound performed [...] the above symptoms, contact our office at [phone] and ask to speak with a nurse. After hours, you can call doctors registry at [phone] OR call [facility] at [phone] and ask to have the doctor carbon furnace operator paged. If you consider this an emergency, dial [phone] or go to your nearest emergency department. NEED HELP? Are you dealing with a violent or abusive relationship? Are you a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 above: Performed By: #### 6 30-4 ####[facility] [id number] [place] [address] [place] C. trachomatis+N. gonorrhoea e DNA AD+probe Ql (Unsp spec)on 07-18-2024 C. trachomatis rRNA AD+probe Ql (Unsp spec) Not detected Normal Not detected [facility] Comment on above: Order Comment: Speci men Type: BLOOD SPECIMEN Ordering Facility: [facility] Address: [address] [place] [address] Performed By: #### C RRSCN #### [facility] CLIA [id number] [address] [place] [address] [place] [address] N. gonorrhoeae rRNA AD+probe Ql (Unsp spec) Not detected Normal Not detected [facility] Comment on above: Order Comment: Speci men Type: BLOOD SPECIMEN Ordering Facility: [facility] Address: [address] [place] [address] Performed By: #### C RRSCN #### [facility] CLIA [id number] [address] [place] [address] POC HYDROGEN PLANT OPERATOR ULTRASOUNDon 07-19-19 Indication Confirmation of intrauterine . [...] Read By: Yasmeen Vera CNP MATERNAL MEDICINE [facility] Radiology Study observation (narrative) [facility] TRICHOMONAS VAGINALIS NAATon 07-18-2024 T. vaginalis DNA AD+probe Ql (Unsp spec) Not detected Normal Not detected [facility] Comment on above: Order Comment: Speci men Type: BLOOD SPECIMEN Ordering Facility: [facility] Address: [address] [place] [address] Performed By: #### C RRSCN #### [facility] CLIA [id number] [address] [place] [address] [place] [address] [place] 07-15-2024 CNPN Telephone (OBGYWM) -------- SMITA NGUYEN ([id number]) 1995 F Date Time Provider Department 07/15/24 BRENNAN HEAD OBGYWM During your visit today, we recorded [...] Encounter Status:Closed by PAMELA COOPER on 07/15/24 Normal [facility] CNOVon 06-13-2024 CNOV Office Visit (OBGYWM) -------- SMITA NGUYEN ([id number]) 1995 F Date Time Provider Department 06/13/24 3:20 PM TOÑA BLANKENSHIP OBGYWRobert During your visit today, we recorded the [...] now. Has been on progesterone for mood stabilization". has semen analysis that was normal. Menses [...] Living0 SAB0 IAB0 Ectopic0 Multiple0 Live Births0 Medical Officer History LMP: 05/18/2024 (Exact Date), Having periods Age at Menarche: Age at First : Age at Menopause: Medical Officer History Comments: Sexual Activity: Yes; Male Contraception: [...] discussed with the Patient or Patient's Authorized Switch Repairer. As applicable, any other physician, advance practice provider, medical student, or other health professional student that will be observing or involved in the sensitive examination for educational or training purposes was discussed with the Patient or Authorized Switch Repairer. The Patient or Authorized Switch Repairer has agreed to proceed with the sensitive [...] a psy (more content not included)... Normal [facility] US Pelvison 05-19-2024 Indication irregular menses, [...] Read By: Marcie Shields M.D. MATERNAL MEDICINE [facility] Pelvison 05-16-2024 Radiology Study observation (narrative) [facility] CNPN Telephone (OBGYWM) -------- SMITA NGUYEN ([id number]) 1995 F Date Time Provider Department 05/09/24 BRENNAN HEAD During your visit today, we recorded the following information about you: Allergies As of Date: 05/09/2024 Noted Allergy Reaction AZITHROMYCIN 10/30/2023 2 - Rash 4 - Hives 8 - GI Upset BUSPIRONE 01/29/2023 1 - Mental Status Change MORPHINE 05/02/2022 8 - GI Upset Date Reviewed: 05/07/2024 Reviewed by: Brennan Head APRN.BENDING PRESS OPERATOR - Fully Assessed Reason for Visit: Results [...] Encounter Status:Closed by BRENNAN HEAD on 05/14/24 [facility] Bacteria Ur Culton Bacteria identified Cx Nom (U) ORGANISM ID: [...] , Intermediate >32 , Resistant >64 Abnormal [facility] Comment on above: Performed By: #### 6 30-4 ####[facility]IA [id number] [address] STATES OF [facility] CNOVon 05-07-2024 CNOV Office Visit (OBGYWRobert) -------- SMITA NGUYEN ([id number]) 1995 F Date Time Provider Department 05/07/24 10:45 AM BRENNAN HEAD During your visit today, we recorded the following information about you: Blood pressure Weight Last Period 110/60 76.2 kg 04/19/24 Brennan Head APRN.BENDING PRESS OPERATOR 05/07/2024 11:12 AM Signed Impact Hammer Operator offered: Patient declines. Smita Nguyen is [...] L0 SAB0 IAB0 Ectopic0 Multiple0 Live Births0 Medical Officer History LMP: 03/22/2024 (Exact Date), Having periods Age at Menarche: Age at First : Age at Menopause: Medical Officer History Comments: Sexual Activity: Yes; Male Contraception: [...] or incontinence. 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 LOSS PREVENTION MANAGER: Negative for abnormal vaginal bleeding, abnormal vaginal [...] - To follow up to discuss preconception/fert ility Brennan Head APRN.BENDING PRESS OPERATOR Medical Decision Making: Problems: Low: Acute, uncomplicated [...] Date Reviewed: 05/07/2024 Reviewed by: Brennan Head APRN.[facility] - Fully Assessed Reason for Visit: Vaginal Problem [117] Urinary Problem [252] Primary Visit Diagnosis:Dysuria [R30.0] Other Visit Diagnoses:Vaginal discharge [N89.8] Desire for [Z31.9] Irregular menstrual cycle [N92.6] Order(s):UA DIP, URINE (POC) [4426006] Order #: [id number] #:[id number] BACTERIAL CULTURE, URINE [SQURCUL] Order #: [id number]. #:[id number] nitrofurantoin monohydrate and macrocrystal (MACROBID) 100 mg capsuleTake 1 capsule by mouth two times a day for 7 days.Disp: 14 capsuleRfl: 0 PELVIC US I [1097002] Order #: [id number] (more content not included)... Normal [facility] UA DIP, URINE (POC)on 2024 BILIRUBIN UA (POCT) Negative Negative [facility] CLARITY UA (POCT) Clear [facility] COLOR UA (POCT) Yellow [facility] GLUCOSE UA (POCT) Negative Negative mg/dL [facility] Hemoglobin Ql (U) Moderate Abnormal Negative [facility] Interpretation and review of laboratory results Abnormal [facility] KETONE UA (POCT) Negative Negative mg/dL [facility] LEUKOCYTES UA (POCT) Moderate Abnormal Negative [facility] NITRITE UA (POCT) Negative Negative [facility] PH UA (POCT) 6.0 4.5 - 8.0 [facility] Protein Ql (U) Negative Negative mg/dL [facility] SPECIFIC GRAVITY UA (POCT) 1.020 1.005 - 1.030 [facility] UROBILINOGEN UA (POCT) 0.2 Normal E.U./d L [facility] Location:[facility], [address], [place], [id number] [place] [address] POINT OF CARE [facility] BACTERIAL VAGINOSIS NAATon 1 05-29-2023 Lactobacillus crispatus+gasseri+jense shakira + Gardnerella vaginalis + Atopobium vaginae rRNA AD+probe Ql (Vag fld) Not detected Normal Not detected [facility] Comment on above: Order Comment: Speci men Type: SWABOrdering Facility: [facility] Address: [address] [place] [address] Performed By: #### C VTV, BVAMP ####[facility]CLIA [id number] [place] [address] [place] MYRA/TRICHOMONAS NAATon 1 05-29-2023 C. glabrata RNA AD+probe Ql (Vag fld) Not detected Normal Not detected [facility] Comment on above: Order Comment: Speci men Type: SWABOrdering Facility: [facility] Address: [address] [place] [address] Performed By: #### C VTV, BVAMP ####[facility]CLIA [id number] [place] [address] [place] Myra sp DNA AD+probe Ql (Vag fld) Not detected Normal Not detected [facility] Comment on above: Order Comment: Speci men Type: SWABOrdering Facility: [facility] Address: [address] [place] [address] Result Comment: The Myra species group target includes C. albicans, C. tropicalis, C. parapsilosis, and C. dubliniensis. Performed By: #### C VTV, BVAMP ####[facility]CLIA [id number] [address] [place] T. vaginalis DNA AD+probe Ql (Unsp spec) Not detected Normal Not detected [facility] Comment on above: Order Comment: Speci men Type: SWABOrdering Facility: [facility] Address: [address] [place] [address] Performed By: #### C VTV, BVAMP ####[facility]CLIA [id number] [place] [address] [place] CNOVon 03-28-2024 CNOV Office Visit (OBGYWM) -------- SMITA NGUYEN ([id number]) 1995 F Date Time Provider Department 03/28/24 9:30 AM CAMELIA HERRERA During your visit today, we recorded the following information about you: Blood pressure Weight Last Period 110/74 78 kg 03/22/24 Camelia Herrera APRN.NO 03/28/2024 3:16 PM Signed Smita Nguyen is a 28 year old female who presents for problem visit HPI: Presents today with complaint of vaginal discharge, odor, and concerns she has another BV infection. Denies any other complaint. OB History T0 L0 SAB0 IAB0 Ectopic0 Multiple0 Live Births0 Medical Officer History LMP: 03/22/2024 (Exact Date), Having periods Age at Menarche: Age at First : Age at Menopause: Medical Officer History Comments: Sexual Activity: Yes; Male Contraception: [...] discussed with the Patient or Patient's Authorized Switch Repairer. As applicable, any other physician, advance practice provider, medical student, or other health professional student that will be observing or involved in the sensitive examination for educational or training purposes was discussed with the Patient or Authorized Switch Repairer. The Patient or Authorized Switch Repairer has agreed to proceed with the sensitive examination. (Sensitive examination includes inspection and/or palpation of the breasts, pelvis, prostate and anorectal regions). EXAM: BP 110/74 Wt 172 lb (78.0kg) LMP 03/22/2024 GENERAL: pleasant, female in no apparent distress HEENT: Normocephalic and atraumatic NECK: Supple and full range of motion PELVIC: external genitalia normal, normal Bartholin's glands, urethra, Busby's glands, no vulvar lesions, no cervical lesions, [...] [N89.8] Order(s):MYRA/T RICHOMONAS NAAT [SQCVTV] Order #: [id number]. #:[id number] BACTERIAL VAGINOSIS NAAT [SQBVAMP] Order #: [id number]. #:[id number] Prescriptions as of 03/28/2024 - progesterone micronized [...] - chol (more content not included)... Normal [facility] HIGH RISK HUMAN PAPILLOMA ANTONELLA (HPV), PCR FOR DETECTION AND GENOTYPINGOrdered By: Asha Mackenzie on 02-08-2024 HPV 16 Ag Ql (Unsp spec) Not detected Not detected [facility] HPV 18 Ag Ql (Unsp spec) Not detected Not detected [facility] HPV 31+33+35+39+45+51+52+56 +58+59+66+68 DNA AD+probe Ql (Cvx) Not detected Not detected [facility] Comment on above: High Risk HPV Other Type includes HPV types 31, 33, 35, 39, 45, 51, 52, 56, 58, 59, 66 and 68. Interpretation and review of laboratory results Normal [facility] This test was developed and its performance characteristics determined by [facility]'s [facility] Pathology and Laboratory Medicine [place] ([facility]). It has not been cleared or approved by the FDA. [facility] is regulated under CLIA as qualified to perform high-complexity testing. This test is used for clinical purposes. It should not be regarded as investigational or for research. [facility] No Panel InformationOrdered By: Naz Salazar on 02-08-2024 [facility] PAP TESTOrdered By: Naz garcia on 02-08-2024 Case Report Gynecologic Cytology Report Case: [id number] Authorizing Provider: Camelia Herrera APRN.CNM Collected: 02/04/2024 03:18 PM Ordering Location: OB/Gynecology Received: 02/04/2024 04:29 PM First Screen: Naz Salazar, ERIKA, ASCP Specimen: Pap Test, ThinPrep, Cervix [facility] Clinical History Routine Exam [facility] Interpretation Negative [facility] LMP 01/15/2024 [facility] Pap Disclaimer q0bdxRBfOBCfc8igZC VmbGFuZzEwMzNcZnRu YmpcdWMxIHtccnRmMV plt9IoR1GsFcYxTCts bnNpXGRlZmxhbmcxMD ZjEFK9ekFyFCIwIBnb UZKqTFfqWm6qgHPukO pgKiIuZHTrp9pfqoUR hfwneEx0y8nhTCHfWo Z2iOVgWDwzO7qubeQy zRLfZIZaKDx7gQ10IZ LqjL8uoVYdSGqjnuTv JrG1SAfcICMdJcV7RH VgoENsYTEfF5vqIYYb XGdyZWVuMFxibHVlMC X0eHtqy8S7sWJupDWr dHtcZjBcZnMyMiBOb3 LtAJr2sPfgE3CqCMGa LpB0dHUcWOLrQWcqNM WpKDAgjzQ3rI76YBdu nsM2mOTzl4Fhn75xk3 72pJ9ouEPbTLE4ERNh ALGsgMOvMZVlXXL2ZJ OdwBZlA7zvOBUsEB0k cmdyMTgwMFxtYXJndD Z6YFYmbQVgB1SuDSJk PCqnRMIatnk5EvTtNx 0vlBFduJhjHTzcz9hs e7hazKCiPvz1WSUcQx NrSqrdFDtsj0Apn0ld EBEhiz6lZOL9nWDkzW vwz1Z0gLIvVBFxzWMx jeHrBJWuVgV0YUtmGJ 8was73MQVjFLM3im7q bGNccGdicmRyaGVhZF vnO5VaDAWcu177XZAs D5ZcJYYgp3O8tvGeGs ObHUGeeJK7aiW1DXPy TBm8iCTobwB7fdIseZ PwM5hluC6dSICsFT0o ejwun9nuWYroSTfkUU YibBY9mzE8OVMjbNAs F2WwqA4xEZSbVMurKO Xklak2FjNoBi4vnNEw eTcyMFxzYmtwYWdlXH BnbmNvbnRccGduZGVj XHBsYWluXHBsYWluXG YwXGZzMjRccWxccGxh iI7gVlTjNhBnInndTT 5nGKLfU6hprFUzXUHt QOXfK6uaLeXxxJ1pgZ hqJFnvlnE8HRYqIVLS YVZvF41zEKCcfWDeBZ UcC4XcTL7ccxbysAWl pLZyk2SpV8QlbdwiVK oaL3OmL6JiCbRmXsZa d4UflzXbULIgzkYeeg IpzPr0isDgC5X3miW3 lHHxRLAggKTiM7TnVB 5pbmcgdGVzdHMsIGVt mDsra1j3bR1eAEFjNP BuZWVkIGZvciByZXNj cmVlbmluZyBhdCByZW JctD1crrPeXLBllcXj cnZhbHMsIGFuZCBjbG fzbIYjxBOuf0NaEVel tIwtga2xnNuojV2dLk XmYhThGtipZN5gLFAq H0tdhVFjBBHhJWVeG7 ryHlEezY2ykIdmCFjj xrWwAWDiaq97 [facility] PAP Jeeper Operator Comment u9ebjVWhKIOdw2zbLI VmbGFuZzEwMzNcZnRu YmpcdWMxIHtccnRmMV rio8SbL2VhHePpIGed bnNpXGRlZmxhbmcxMD AgOLC2onBiQLFqIPyx LZEcHKuyUi8tyLQefL mfKvIkUMAlb4qnfhHH vorgbFc4m6daDSDoZb S7kXSfLAosR3uvnpJt rEKnAQJkQZc2zP80HX NxuO8pmJCoYCwspkUr BjG6XGzfHKDrFwX6XN FgmJBxCJRxY4avPGDx XGdyZWVuMFxibHVlMC E2iPwhv2J9bMIzlRSi dHtcZjBcZnMyMiBOb3 JsPQz3vKniG1XrMPHt KxU7pWXfTHHuUNkoOU YuTSSactI2nE45WSql ggU7sOYfd0Kra89nv5 59kE4trBWtGGS4YUTb ANLyxNBoJDDxHHH2UZ TnbASeW2xlNPViLG2p cmdyMTgwMFxtYXJndD S4FFCmcEBbE6NkUZGn AFimRMQuupp5BzHvOb 9akUBbpXpnKNpqg4rz i4avsWZxAak9AOJeCf PiRogpNBgyr8Vbl2fz QJFhaw1kEJN5fLEjeE ofa2F0tZXoBDNosHRi tkTiFARjOxO0UWjpOL 8mro50URXrIPE8iu4j bGNccGdicmRyaGVhZF fkF8DhZAEkn598TPSk A7GpIUZqn3O4pwSqUo NjCVKjaLP2yeM8RAVy FTd9aEMinaQ6oyRypI AfD1mflF3wCUBdIG3s eyclg9bjOEpbRZygMR GuaQR8tmL3DPZizRKw S0YkuW3cLOXtJAeyBC Ldctm8UvPeXb9isVKt eTcyMFxzYmtwYWdlXH BnbmNvbnRccGduZGVj XHBsYWluXHBsYWluXG YwXGZzMjRccWxccGxh oZ1yLtGlSjOxJkwcDF 4lOICrB7kmwNPpADPb KJMkJ9xgCxCouK6tlM bmIPnhrhT1LZnoBQmc ccKrsZQusI4zqtTmFM MgYmVlbiBhbmFseXpl JFLipIR2gXTuWJohor KiMYVnDS0jY7hqVrGI hPD5XP2oZEQsTRQ3cB 9bRNBxUWBaeHGoyD1c IGFuZCByZXZpZXcgc3 gfmDLoMWR6gPqooBWm e5Vtv2YxLAZySIEtXU StrwV9k6P5WDnxFTC0 EOo6RCJjxlerT6HurW Euj23aSSbltbHcKHDj YBYgKCGgm3SvXcPrAh 1urE48eM4tQUM3gI8u MXHhYSXeeXGffL2hKQ IkTXlvY0UwDFZbmLHs ZHMgZnJvbSBldmVyeS BzbGlkZSBhcmUgcmV2 qLT1BPAsTrbaUOOmaX LdxIWrzJ3evX4myVM9 LlxwbGFpblxmMVxmcz IyXGxhbmcxMDMzXGhp E4drOtHxBMKyyOcyZY ofy7TzTLFcAIQyVaMi cGFyfX0= [facility] Performing Lab p7vxcQZdONJrq5jrSX VmbGFuZzEwMzNcZnRu YmpcdWMxIHtccnRmMV xhbnNpXGRlZmxhbmcx TRBlREL6yqJoZILsFP G7BRL3IyAsk5Y2GFBh HxRhIGMkYY2wpHqyOH ZrAX7dEPSwW8gbbJ4q szg9YtZaZMMqTuW9EY StvxW2Saj1QJAlYZgc l4tjo1ClVJAgNBy2tC mxDyLsJFCeh4ocxmFd ZmNoYXJzZXQwIEFyaW GrN008y5yjm9sareLz tPT8QBBmNND1POyhqf OqkoR3MIkseAGnOiH6 IDtccmVkMFxncmVlbj IcFni7YQAcL460SAP8 eBsrg9vwWKP6DQGtSW WlMdCoVk0qjYVeQ975 SZHvGQMRBLKmjNn1PN PgihWvtuYjmUYHf744 C188w2xxNBNtlsBdqU nYoprhb0ixM745YACy cGVydzEyMjQwXHBhcG YzaSY7QOOzFH2spupy RNvaILkzUJEywkS2KN YezPBoU0JhPHOqID6v mocsSIZ9BDqcTXMlQG A9CuLeKJWbp0Kuqtf4 MmFuef3quo41YLQ0n9 CadCirSNZ2KRG2OsVm Db2pzGNgXLEbCU1uFl BjdJUhMCBhwc32gCyf RWytzmRxdT4wAeDjOY LsoFCsYEQwAU7rdCXg DVRgoM0wcrveOLQkRh JkcmhlYWRccGdicmRy Sk3ejMmfPTM2JHcwK9 rpaE3bMlJ7VNcfK5zv eO5uBNl3MTpesXD5TQ GayJ4wRZ1xktrvr9jd HYvtMQatSKZwtnD8vb M4QUVcvWJcM9XdzM7l JMYcRT1cksovm4kaGJ E1ZHhoVQIxAPS6CzIa ETCjs5Cvcvw9AiGdp1 YecTQcXEtnY19bq425 FUZhblTmX1alvQWsbi xwbGFpblxmMFxmczI0 XHFsXHBsYWluXGYxXG ZzMjJcbGFuZzEwMzNc aGljaFxmMVxkYmNoXG XsWBqbR9xlQqXgWpGn MiBUZWNobmljYWwgY2 2hgH5qCB54EIGdcVSw sIMadZ5enX9rzRF2JI NjcmVlbmluZyBwZXJm i3TbBPNlYWTsK0dksb KbLW1qDNIbnW8cSuad OTUwMCBFdWNsaWQgQX XiNIOGgRY9UNsscgQq X7jgDGXiGHWjUASEAE bIDjLvYfPdPlL7XYz8 PAHvvl30b4bdaWOjPA NzdGVjZjIyMDAwXGFu u0wcZNZufNOvUtMfAu NcZnRuYmpcdWMxXGRl TpQhu5cii904tUDhh9 twUUJoAvQ7hGJvVYBq sNQmY103IVGyAPodi8 ads4HhJIRtgOUno8F5 MPIXltyxoDa4fSyfV3 2yu4X0XezfH4bcJUSd NYGwZ3GxGU9vJIUrDo g5YJL6ELE2WYLoWAHs P2XvPQ4mMZZbaBDgIE w3a9fjaJhvLMAwCSN0 o7doJHnnomSeBG7mnd 9kxGl2z1pfhkKoDYYa HMElxFIROQDiT7IfmY fyWq2urRr3kGxiMmwh LUZ5Tss1KN1qlk86qz k4eOsfYSJyqekqLjX4 BZrwPIBmhtbrTKi2OK toRGCvvOI8GXKqkXLu L5WaKWbxEF0xnkl3DG P0CYycPUFsXfJ4YRTn aGVhZGVyeTcyMFxmb2 03AXD5EaUuTO6dR6Qo h9K6uP8qrDRaZDNbjQ JeBbJeOGQjhd8hoHMq TXzyk3KqUDD8wlF1oA XhjVZtRIZvLB15Ccdb f1KuSwkvz2MnB46xiK J4JOmsn4dtGX3iEeN6 jaMyKKtlt6mefZ3xVn Q3UKeaVN1kQS8aRPDt zP7bipexYPTkKpVyjr tgKDRvrRopqwBoXv2s dCkbGTB9NNudC6cvyE 5rQtS3XVlhB2zhnY9e OEs8QXrngVG0KQKabB 2nPE6wnamic9keJIsj MXnfGWDlbtL7xsOtXD YddXLxS4UimG3iGWRo ML5bemeou4cnXYT2EI yrVMWuMFW3SoKuHBJq g2Ylmsy9RxPoo0GdsA MqKTnmI48vo389PHQp onPmE4cgzQRgbbrkqQ VvejhmQVmgcuM1XXAz XHBsYWluXGYxXGZzMj BcbGFuZzEwMzNcaGlj aFxmMVxkYmNoXGYxXG adX2jbVkEnTpOtRFGZ tORqgr7joWxlTUvneL FixYRzkXS0aY1cLMBp qhFyyu2mABWquZEByG F6WHxcsoTcK9bgktle TQB5IIAzHHX2K7xqHG BBdmUsIENsZXZlbGFu AHTJVNM4RNF8FVHlJY YDOKCpTGJ3OEO5ICJx OTRccGFyXHBhclxwYX JkXHBsYWluXGYwXGZz HbVgaRqktJ3xRcFcOd UpKAwlBX9pXRYdY0cx gMMrXMQtQWIzE7ezHe YcgY1bnXmmIFbbPiEu ZnMyMFxsdHJjaCBMYW NtqjT7k1Z5YCxwmFVr blxmMVxmczIwXGxhbm wyVEIaIUutW6bqFvFl FOUyvRanWXtwb8WmNM YxXGZzMjAgRGlyZWN0 i9Z7MOkulYClohIQBs JZQE9qaQKcvbaiTL3P LlxwbGFpblxmMVxmcz IyXGxhbmcxMDMzXGhp A9ymMyReANBwiAovWD way9XcMEZzXYKqReAa cGFyfX0= [facility] Specimen Adequacy Satisfactory for interpretation. [facility] BACTERIAL VAGINOSIS NAATon 1 04-06-2023 Interpretation and review of laboratory results Abnormal [facility] Lactobacillus crispatus+gasseri+jense shakira + Gardnerella vaginalis + Atopobium vaginae rRNA AD+probe Ql (Vag fld) Positive Abnormal Negative for bacterial vaginosis [facility] MYRA/TRICHOMONAS NAATon 1 04-06-2023 C. glabrata RNA AD+probe Ql (Vag fld) Negative Negative for Myra glabrata [facility] Myra sp DNA AD+probe Ql (Vag fld) Negative Negative for Myra species [facility] Interpretation and review of laboratory results Normal [facility] T. vaginalis DNA AD+probe Ql (Unsp spec) Negative Negative for Trichomonas vaginalis by amplification [facility] ECG 12-LEADon 11-20-2022 ECG 12-LEAD IMPRESSION: Sinus rhythm Electronically Signed On 11-19-2022 23:58:23 EDT by Lukas Darling [facility] ED Nursing Noteon 11-20-2022 ED Nursing Note Pt was discharged without her prescriptions. Voice message was left for pt and her spouse regarding prescriptions. Cinthia Angulo RN 11/20/22 0133 [facility] ED Nursing Note In 45 getting dressed for discharge Barbara Beck 11/20/22 0117 [facility] Nursing Note Dr. Donald at bedside Barbara Beck 11/20/22 0056 [facility] ED Nursing Note Pt resting in room. Respirations even and non labored. at bedside. Cinthia Angulo RN 11/20/22 0028 [facility] ED Nursing Note Pt out to restroom to provide urine sample Barbara Beck 11/19/22 2346 [facility] ED Nursing Note Sophia WADSWORTH at bedside to medicate Barbara Beck 11/19/22 2332 [facility] ED Nursing Note Patient given bagged lunch from [employer] Frances Parks, EMT 11/19/22 2301 [facility] ED Nursing Note Patient has 3 bags of belongings. MILES Elena 11/19/22 2257 [facility] ED Nursing Note Protective services at patient bedside offering patient cup of water. MILES Elena 11/19/22 225 [facility] ED Nursing Note Physician is at patient bedside MILES Elena 11/19/22 2234 [facility] ED Nursing Note Patient has 3 bag of belongings. Patient was wanded and changed into two gowns. Jovimalcolmmary Jai Parks, EMT 11/19/22 2204 Normal [facility] Laboratory - Drug toxicology Ordered By: Vikash Borden on 11-20-2022 Amphetamines Screen method >1000 ng/mL Ql (U) Negative [facility] Barbiturates Screen method >200 ng/mL Ql (U) Negative [facility] Benzodiazepines Ql (U) Positive [facility] Methadone Screen Ql (U) Negative [facility] Opiates Screen Ql (U) Negative [facility] oxyCODONE Ql (U) Negative [facility] alth Phencyclidine Ql (U) Negative [facility] No Panel InformationOrdered By: Vikash Borden on 11-20-2022 COCAINE METAB. SCREEN Negative [facility] The expected value for all of [...] is needed, request confirmation under separate order. [facility] .Auto Diffon 11-19-2022 Basophil, Absolute 0.1 10 3/mcL Normal 0.0-0.2 [facility] ([place]) Comment on above: Performed By: #### C AZUL MALDONADO MDW, ADIFF, GFR, BMP, ALC #### [address] [address] Basophils/100 WBC (Bld) 0.6 % Normal 0.0-2.5 [facility] ([place]) Comment on above: Performed By: #### C AZUL MALDONADO MDW, ADIFF, GFR, BMP, ALC #### [address] [address] Eosinophil, Absolute 0.1 10 3/mcL Normal 0.0-0.4 [facility] ([place]) Comment on above: Performed By: #### C BC, ANEU, MDW, ADIFF, GFR, BMP, ALC #### [address] [address] Eosinophils/100 WBC (Bld) 0.6 % Normal 0.0-7.0 [facility] ([place]) Comment on above: Performed By: #### C BC, ANEU, MDW, ADIFF, GFR, BMP, ALC #### [address] [address] Lymphocyte, Absolute 3.1 10 3/mcL Normal 0.8-3.9 [facility] ([place] Comment on above: Performed By: #### C BC, ANEU, MDW, ADIFF, GFR, BMP, ALC #### [address] [address] Lymphocytes/100 WBC (Bld) 32.1 % Normal 10.0-50.0 [facility] ([place]) Comment on above: Performed By: #### C BC, ANEU, MDW, ADIFF, GFR, BMP, ALC #### [address] [address] Monocyte, Absolute 0.8 10 3/mcL Normal 0.2-1.0 [facility] ([place]) Comment on above: Performed By: #### C BC, ANEU, MDW, ADIFF, GFR, BMP, ALC #### [address] [address] Monocytes/100 WBC (Bld) 8.5 % Normal 1.7-13.0 [facility] ([place]) Comment on above: Performed By: #### C BC, ANEU, MDW, ADIFF, GFR, BMP, ALC #### [address] [address] Neutrophils/100 WBC (Bld) 58.2 % Normal 37.0-80.0 [facility] ([place]) Comment on above: Performed By: #### C BC, ANEU, MDW, ADIFF, GFR, BMP, ALC #### [address] [address] .GFRon 08-20-2023 GFR 79 ml/min/1.73sqm Normal [facility] ([place]) Comment on above: Result Comment: GFR Population [...] By: #### G FR, LIPID, CMP #### [address] [address] GFR Non- 65 ml/min/1.73sqm Normal [facility] ([place]) Comment on above: Result Comment: GFR Population [...] By: #### G FR, LIPID, CMP #### [address] [address] .MDWon 11-19-2022 Monocyte Distribution Width 16.13 Normal 0.00-20.00 [facility] ([place]) Comment on above: Result Comment: For ED adult patients suspected of sepsis, MDW<=20.0 does not rule out sepsis or risk of sepsis Performed By: #### C AZUL MALDONADO MDW, ADIFF, GFR, BMP, ALC #### [address] [address] .NEUABSon 11-19-2022 Neutrophil, Absolute 5.6 10 3/mcL Normal 2.9-6.2 [facility] ([place] Comment on above: Performed By: #### C BC, ANEU, MDW, ADIFF, GFR, BMP, ALC #### [place] [id number] Loni 11-19-2022 Ethanol Level <3 Normal 0-3 [facility] ([place]) Comment on above: Performed By: #### G FR, LIPID, CMP #### [place] [id number] BMPon 11-19-2022 BUN/Creatinine Ratio 14 ratio Normal 7-27 [facility] ([place]) Comment on above: Performed By: #### G FR, LIPID, CMP #### [address] [address] Calcium [Mass/Vol] 9.2 mg/dL Normal 8.4-10.2 [facility] ([place]) Comment on above: Performed By: #### G FR, LIPID, CMP #### [address] [address] Chloride [Moles/Vol] 101 mmol/L Normal 98-107 [facility] ([place]) Comment on above: Performed By: #### G FR, LIPID, CMP #### [address] [address] CO2 [Moles/Vol] 28 mmol/L Normal 22-29 [facility] ([place]) Comment on above: Performed By: #### G FR, LIPID, CMP #### [address] [address] Creatinine [Mass/Vol] 1.01 mg/dL Normal 0.55-1.02 [facility] ([place]) Comment on above: Performed By: #### G FR, LIPID, CMP #### [address] [address] Electrolyte Balance 9.0 mEq/L Normal 4.0-15.0 [facility] ([place]) Comment on above: Performed By: #### G FR, LIPID, CMP #### [address] [address] Glucose [Mass/Vol] 102 mg/dL Normal 70-105 [facility] ([place]) Comment on above: Performed By: #### G FR, LIPID, CMP #### [address] [address] Potassium [Moles/Vol] 3.4 mmol/L Low 3.5-5.1 [facility] ([place]) Comment on above: Performed By: #### G FR, LIPID, CMP #### [address] [address] Sodium [Moles/Vol] 138 mmol/L Normal 136-145 [facility] ([place]) Comment on above: Performed By: #### Larry FR, LIPID, CMP #### [address] [address] Urea nitrogen [Mass/Vol] 14 mg/dL Normal 7-18 [facility] ([place]) Comment on above: Performed By: #### G FR, LIPID, CMP #### [address] [address] CBCon 11-19-2022 Erythrocyte distribution width (RBC) [Ratio] 12.6 % Normal 11.5-14.5 [facility] ([place] Comment on above: Performed By: #### C AZUL MALDONADO MDW, ADISMAEL, GFR, BMP, ALC #### [address] [address] Hematocrit (Bld) [Volume fraction] 39.0 % Normal 37.0-47.0 [facility] ([place] Comment on above: Performed By: #### C AZUL MALDONADO, LAMBERT, ADISMAEL, GFR, BMP, ALC #### [address] [address] Hgb 13.8 G/dL Normal 12.0-16.0 [facility] ([place] Comment on above: Performed By: #### C ERICA, AZUL, W, ADIFF, GFR, BMP, ALC #### [address] [address] MCH (RBC) [Entitic mass] 31.2 pg Normal 27.0-31.2 [facility] ([place] Comment on above: Performed By: #### C ERICA, AZUL, W, ADIFF, GFR, BMP, ALC #### [address] [address] MCHC 35.4 G/dL Normal 33.0-37.0 [facility] ([place] Comment on above: Performed By: #### C ERICA, AZUL, W, ADIFF, GFR, BMP, ALC #### [address] [address] MCV (RBC) [Entitic vol] 88.2 fL Normal 80.0-94.0 [facility] ([place] Comment on above: Performed By: #### C ERICA, AZUL, W, ADIFF, GFR, BMP, ALC #### [address] [address] Platelet 274 10 3/mcL Normal 130-400 [facility] ([place]) Comment on above: Performed By: #### C ERICA, AZUL, W, ADIFF, GFR, BMP, ALC #### [address] [address] Platelet mean volume (Bld) [Entitic vol] 8.2 fL Normal 7.4-10.4 [facility] ([place] Comment on above: Performed By: #### C ERIAC, AZUL, W, ADIFF, GFR, BMP, ALC #### [place] [phone] RBC 4.42 10 6/mcL Normal 4.20-5.40 [facility] ([place] Comment on above: Performed By: #### C ERICA, AZUL, W, ADIFF, GFR, BMP, ALC #### [place] [phone] WBC 9.7 10 3/mcL Normal 4.6-10.8 [facility] ([place]) Comment on above: Performed By: #### C BC, AZUL, MDW, ADISMAEL, GFR, BMP, ALC #### [facility] [address] [place], [place] [address] CBC W Auto Differential pane l (Bld)Ordered By: Cherie Fritz on 11-19-2022 Basophils (Bld) [#/Vol] 0.1 10*3/uL 0.0 - 0.2 10*3/uL [facility] Basophils/100 WBC (Bld) 0.6 % 0.0 - 2.0 % [facility] Eosinophils (Bld) [#/Vol] 0.0 10*3/uL 0.0 - 0.5 10*3/uL [facility] Eosinophils/100 WBC (Bld) 0.3 % Low 1.0 - 6.0 % [facility] Erythrocyte distribution width (RBC) [Ratio] 12.6 % 11.5 - 14.5 % [facility] Hematocrit (Bld) [Volume fraction] 41.7 % 35.0 - 47.0 % [facility] Hemoglobin (Bld) [Mass/Vol] 14.2 g/dL 11.7 - 16.0 g/dL [facility] Interpretation and review of laboratory results Abnormal [facility] Lymphocytes (Bld) [#/Vol] 3.5 10*3/uL 1.0 - 4.3 10*3/uL [facility] Lymphocytes/100 WBC (Bld) 35.1 % 20.0 - 40.0 % [facility] MCH (RBC) [Entitic mass] 31.2 pg 26.0 - 34.0 pg [facility] MCHC (RBC) [Mass/Vol] 34.1 % 32.0 - 36.0 % [facility] MCV (RBC) [Entitic vol] 91.7 fL 80.0 - 98.0 fL [facility] Monocytes (Bld) [#/Vol] 0.7 10*3/uL 0.0 - 0.8 10*3/uL [facility] Monocytes/100 WBC (Bld) 7.1 % 2.0 - 10.0 % [facility] Neutrophils (Bld) [#/Vol] 5.8 10*3/uL 1.8 - 7.0 10*3/uL [facility] Neutrophils/100 WBC (Bld) 56.9 % 40.0 - 80.0 % [facility] Nucleated RBC/100 WBC (Bld) [Ratio] 0.1 % [facility] Platelet mean volume (Bld) [Entitic vol] 8.7 fL 7.4 - 12.4 fL [facility] Platelets (Bld) [#/Vol] 283 10*3/uL 140 - 440 10*3/uL [facility] RBC (Bld) [#/Vol] 4.55 10*6/uL 3.8 - 5.20 10*6/uL [facility] WBC (Bld) [#/Vol] 10.1 10*3/uL 3.6 - 10.7 10*3/uL [facility] [id number] 11-19-2022 SARS-CoV-2 (COVID-19) RNA AD+probe Ql (Unsp spec) Negative Normal Negative [facility] ([place] Comment on above: Performed By: #### C OVD19 #### [address] [address] SARS-CoV-2 (COVID-19) RNA AD+probe Ql (Unsp spec) Normal [facility] ([place]) Comment on above: Result Comment: Nega tive [...] or inadequate numbers of organisms for amplification. SUMAN SARS-CoV-2 Assay is a Real-Time reverse-transcriptase polymerase [...] Int Performed By: #### C OVD19 #### [place] [address] Comprehensive metabolic 1998 panelon 11-19-2022 Albumin [Mass/Vol] 5.0 g/dL 3.5 - 5.0 g/dL [facility] ALP [Catalytic activity/Vol] 66 U/L 38 - 126 U/L [facility] ALT [Catalytic activity/Vol] 21 U/L 0 - 34 U/L [facility] Anion gap [Moles/Vol] 13 mmol/L 3 - 13 mmol/L [facility] AST [Catalytic activity/Vol] 28 U/L 15 - 46 U/L [facility] Bilirubin [Mass/Vol] 0.7 mg/dL 0.2 - 1 .3 mg/dL [facility] Calcium [Mass/Vol] 8.9 mg/dL 8.4 - 10. 4 mg/dL [facility] Chloride [Moles/Vol] 104 mmol/L 98 - 10 7 mmol/L [facility] CO2 [Moles/Vol] 20 mmol/L Low 22 - 30 mmol/L [facility] Creatinine [Mass/Vol] 0.80 mg/dL 0.52 - 1.04 mg/dL [facility] GFR/1.73 sq M.predicted MDRD (S/P/Bld) [Vol rate/Area] - PINF [facility] Comment on above: Calculation based on the Chronic Kidney Disease Epidemiology Collaboration (CKD-EPI) equation refit without adjustment for race Glucose [Mass/Vol] 109 mg/dL High 70 - 100 mg/dL [facility] Interpretation and review of laboratory results Abnormal [facility] Potassium [Moles/Vol] 3.7 mmol/L 3.5 - 5.1 mmol/L [facility] Protein [Mass/Vol] 7.9 g/dL 6.3 - 8.2 g/dL [facility] Sodium [Moles/Vol] 136 mmol/L 135 - 145 mmol/L [facility] Urea nitrogen [Mass/Vol] 13 mg/dL 7 - 17 mg/dL [facility] ED Nursing Noteon 11-19-2022 ED Nursing Note EKG at patient bedside Frances Parks, EMT 11/19/22 5123 Normal [facility] ED Nursing Note Registration at patient bedside Frances Parks, EMT 11/19/222155 [facility] ED Nursing Note Registration at patient bedside Frances Garcia Parks, EMT 11/19/222135 [facility] ED Nursing Note Dr. Darling at patient bedside Frances Garcia Kasey, EMT 11/19/222131 [facility] ED Nursing Note Physician at patient bedside Frances Jai Parks, EMT 11/19/222115 [facility] ED Nursing Note Pt changed into gowns. Protective Services secured pt's belongings. Pt was wanded. Cinthia Angulo RN 11/19/222110 [facility] ED Provider Noteon ED Provider Note EMERGENCY [...] Patient states that she was seen at [facility] last night for similar issues and was [...] mg by mouth in the morning., Starting Sun09/21/2022, Historical Med B Complex-C (b complex-vitamin c) [...] (more content not included)... Normal [facility] ED Provider Note Emergency Department Encounter [facility] EMERGENCY DEPT Patient: [...] [employer] Lukas Darling MD 11/19/222138 Normal [facility] Ethanol (Bld) [Mass/Vol]on 0 11-19-2022 Ethanol [Mass/Vol] g/dL 0.000 - 0 .010 g/dL [facility] Interpretation and review of laboratory results Normal [facility] Laboratory - Chemistry and C hemistry - challengeOrdered By: Zoë Post on 11-19-2022 Beta HCG ( test) Ql Negative Negative [facility] Comment on above: Please note: Very di lute urine specimens, as indicated by a low specific gravity, may not contain uniforms sales representative levels of hCG. If is still suspected, a first morning urine specimen should be collected 48 hours later and tested. Beta HCG ( test) Ql (U) is the most common reason for HCG in urine, although choriocarcinoma, hydatidiform mole, and certain nontrophoblastic malignancies also result in detectable urinary HCG levels. Sensitivity = 20mIU/mL. [facility] Laboratory - Microbiology an d Antimicrobial susceptibilityOrdered By: Bryanna Velasquez on 11-19-2022 SARS-CoV-2 (COVID-19) Ag IA.rapid Ql (Resp) Negative Negative [facility] Comment on above: A negative result do es not rule out the possibility of SARS-CoV-2 infection. NAAT-based methods should be considered for symptomatic patients presenting greater than seven days after onset of symptoms. Method: Lateral flow immunoassay. Fact sheets for healthcare providers and patients can be found at the following sites: https://www.fda.gov/media/843056/download https://www.[employer].gov/media/719373/download No Panel InformationOrdered By: Zoë Post on 11-19-2022 [facility] No Panel Informationon 11-19 P [place] 9 degrees [facility] CO Interval 135 ms [facility] QRS [place] 64 degrees [facility] QRSD Interval 81 ms [facility] QT Interval 352 ms [facility] QTC Interval 446 ms [facility] T Wave [place] -21 degrees [facility] Sinus rhythm Electronically Signed On 11-19-2022 23:58:23 EDT by Lukas Darling CV Lukas Mccormack MD - 11/19/2022 IMPRESSION: Sinus rhythm Electronically Signed On 11-19-2022 23:58:23 EDT by Lukas Darling [facility] PREGUon 11-19-2022 HCG ( test) Ql (U) Negative Normal [facility] ([place]) Comment on above: Performed By: #### T OXSC, PREGU #### [address] [address] test (u) int Not detected Invalid Interpretation Code [facility] ([place]) Comment on above: Performed By: #### T OXSC, PREGU #### [place] [address] [address] SARS-CoV-2 (COVID-19) Ag IA. rapid Ql (Resp)Ordered By: Bryanna Velasquez on 11-19-2022 Interpretation and review of laboratory results [facility] TOXSCon 11-19-2022 U Ampheta (AO) Negative [facility] ([place]) Comment on above: Performed By: #### T OXSC, PREGU #### [address] [address] U Sophia (AO) Negative [facility] ([place]) Comment on above: Performed By: #### T OXSC, PREGU #### [place] [address] [address] U Raymond (AO) Positive [facility] ([place]) Comment on above: Performed By: #### T OXSC, PREGU #### [place] [address] [address] U Cannab (AO) Negative [facility] ([place]) Comment on above: Performed By: #### T OXSC, PREGU #### [address] [address] U Cocaine (AO) Negative [facility] ([place]) Comment on above: Performed By: #### T OXSC, PREGU #### [address] [address] U Methadone (AO) Negative [facility] ([place]) Comment on above: Performed By: #### T OXSC, PREGU #### [address] [address] U PCP (AO) Negative [facility] ([place]) Comment on above: Performed By: #### T OXSC, PREGU #### [address] [address] U TCA (AO) Positive [facility] ([place]) Comment on above: Performed By: #### T OXSC, PREGU #### [address] [address] Urine Opiates (AO) Negative [facility] ([place]) Comment on above: Performed By: #### T OXSC, PREGU #### [place] [address] Urinalysis complete panel (U )Ordered By: Blanche Moody on 11-19-2022 Bilirubin Ql (U) Negative Negative mg/dL [facility] Clarity (U) Clear Clear [facility] Color (U) Light Yellow Lt. Yellow [facility] Glucose Ql (U) Normal Normal (<70) mg/dL [facility] Hemoglobin Ql (U) Negative Negative mg/dL [facility] Interpretation and review of laboratory results Abnormal [facility] Ketones (U) [Mass/Vol] 100 mg/dL Abnormal Negative [facility] Leukocyte esterase Test strip Ql (U) Negative Negative Skip/uL [facility] Nitrite Ql (U) Negative Negative [facility] th pH (U) 6.5 [pH] 5.0 - 8.0 pH [facility] Protein (U) [Mass/Vol] Negative Negative mg/d L [facility] Specific gravity (U) [Rel density] 1.020 1.005 - 1.030 [facility] Urobilinogen (U) [Mass/Vol] Normal Normal (0-1) mg/dL [facility] Vital signson 11-19-2022 Heart rate 96 /min bpm [facility] LABORATORYOrdered By: Javier Collins on 11-18-2022 Amphetamines [...] SS .GFRon 06-30-2022 GFR 81 ml/min/1.73sqm Normal [facility] ([place]) Comment on above: Result Comment: GFR Population [...] By: #### G FR, LIPID, CMP #### [place] [address] [id number] GFR Non- 67 ml/min/1.73sqm Normal [facility] [facility] ([place]) Comment on above: Result Comment: GFR Population [...] By: #### G FR, LIPID, CMP #### [address] [address] CMPon 06-30-2022 Albumin Level 4.1 G/dL Normal 3.5-5.0 [facility] ([place]) Comment on above: Performed By: #### G FR, LIPID, CMP #### [address] [address] Albumin/Globulin [Mass ratio] 1.4 {ratio} Normal 1.1-2.5 [facility] ([place]) Comment on above: Performed By: #### Larry FR, LIPID, CMP #### [address] [address] ALP [Catalytic activity/Vol] 73 U/L Normal 40-135 [facility] ([place]) Comment on above: Performed By: #### Larry FR, LIPID, CMP #### [address] [address] ALT [Catalytic activity/Vol] 25 U/L Normal 14-59 [facility] ([place]) Comment on above: Performed By: #### G FR, LIPID, CMP #### [address] [address] AST [Catalytic activity/Vol] 18 U/L Normal 10-40 [facility] ([place]) Comment on above: Performed By: #### G FR, LIPID, CMP #### [address] [address] Bili Total 0.6 mg/dL Normal 0.2-1.0 [facility] ([place]) Comment on above: Result Comment: Use of this assay is not recommended for patients undergoing treatment with eltrombopag due to the potential for falsely elevated results. Performed By: #### G FR, LIPID, CMP #### [address] [address] BUN/Creatinine Ratio 12 ratio Normal 7-27 [facility] ([place]) Comment on above: Performed By: #### G FR, LIPID, CMP #### [address] [address] Calcium [Mass/Vol] 8.9 mg/dL Normal 8.4-10.2 [facility] ([place]) Comment on above: Performed By: #### G FR, LIPID, CMP #### [address] [address] Chloride [Moles/Vol] 102 mmol/L Normal 98-107 [facility] ([place]) Comment on above: Performed By: #### G FR, LIPID, CMP #### [address] [address] CO2 [Moles/Vol] 31 mmol/L High 22-29 [facility] ([place]) Comment on above: Performed By: #### G FR, LIPID, CMP #### [address] [address] Creatinine [Mass/Vol] 0.98 mg/dL Normal 0.55-1.02 [facility] ([place]) Comment on above: Performed By: #### G FR, LIPID, CMP #### [address] [address] Electrolyte Balance 7.0 mEq/L Normal 4.0-15.0 [facility] ([place]) Comment on above: Performed By: #### G FR, LIPID, CMP #### [address] [address] Globulin 2.9 G/dL Normal [facility] ([place]) Comment on above: Performed By: #### G FR, LIPID, CMP #### [address] [address] Glucose [Mass/Vol] 88 mg/dL Normal 70-105 [facility] ([place] Comment on above: Performed By: #### G FR, LIPID, CMP #### [address] [address] Potassium [Moles/Vol] 4.6 mmol/L Normal 3.5-5.1 [facility] ([place]) Comment on above: Performed By: #### G FR, LIPID, CMP #### [address] [address] Sodium [Moles/Vol] 140 mmol/L Normal 136-145 [facility] ([place]) Comment on above: Performed By: #### G FR, LIPID, CMP #### [address] [place], [place] [address] Total Protein 7.0 G/dL Normal 6.4-8.2 [facility] ([place]) Comment on above: Performed By: #### G FR, LIPID, CMP #### [address] [place], [place] [address] Urea nitrogen [Mass/Vol] 12 mg/dL Normal 7-18 [facility] ([place]) Comment on above: Performed By: #### G FR, LIPID, CMP #### [address] [place], [place] [address] LABORATORYOrdered By: SYSTEM SYSTEM on 06-30-2022 Albumin [...] 06-30-2022 Cholesterol [Mass/Vol] 237 mg/dL High 0-200 [facility] ([place]) Comment on above: Result Comment: Chol esterol Reference Interval: Less than 200 Desirable 200-239 Borderline high risk 240 and above High risk Performed By: #### G FR, LIPID, CMP #### [address] [address] Cholesterol in HDL [Mass/Vol] 82 mg/dL High 40-60 [facility] ([place]) Comment on above: Performed By: #### G FR, LIPID, CMP #### [address] [place], [place] [address] Cholesterol in LDL [Mass/Vol] 150 mg/dL High 0-130 [facility] ([place]) Comment on above: Performed By: #### G FR, LIPID, CMP #### [address] [address] Triglyceride [Mass/Vol] 26 mg/dL Normal 0-150 [facility] ([place]) Comment on above: Result Comment: Trig lyceride Reference Interval: Less than 150 Normal 150-199 Borderline high risk 200-499 High risk 500 or higher Very high risk Performed By: #### G FR, LIPID, CMP #### [address] [address] .Auto Diffon 06-09-2022 Basophil, Absolute 0.1 10 3/mcL Normal 0.0-0.2 [facility] ([place]) Comment on above: Performed By: #### G FR, LIPID, CMP #### [address] [address] Basophils/100 WBC (Bld) 0.8 % Normal 0.0-2.5 [facility] ([place]) Comment on above: Performed By: #### G FR, LIPID, CMP #### [address] [address] Eosinophil, Absolute 0.1 10 3/mcL Normal 0.0-0.4 [facility] ([place]) Comment on above: Performed By: #### G FR, LIPID, CMP #### [address] [address] Eosinophils/100 WBC (Bld) 1.5 % Normal 0.0-7.0 [facility] ([place]) Comment on above: Performed By: #### G FR, LIPID, CMP #### [address] [address] Lymphocyte, Absolute 2.3 10 3/mcL Normal 0.8-3.9 [facility] ([place]) Comment on above: Performed By: #### G FR, LIPID, CMP #### [address] [address] Lymphocytes/100 WBC (Bld) 31.4 % Normal 10.0-50.0 [facility] ([place]) Comment on above: Performed By: #### G FR, LIPID, CMP #### [address] [address] Monocyte, Absolute 0.7 10 3/mcL Normal 0.2-1.0 [facility] ([place]) Comment on above: Performed By: #### G FR, LIPID, CMP #### [address] [address] Monocytes/100 WBC (Bld) 9.7 % Normal 1.7-13.0 [facility] ([place]) Comment on above: Performed By: #### G FR, LIPID, CMP #### [address] [address] Neutrophils/100 WBC (Bld) 56.6 % Normal 37.0-80.0 [facility] ([place]) Comment on above: Performed By: #### G FR, LIPID, CMP #### [address] [address] .NEUABSon 06-09-2022 Neutrophil, Absolute 4.2 10 3/mcL Normal 2.9-6.2 [facility] ([place]) Comment on above: Performed By: #### G FR, LIPID, CMP #### [address] [address] CBCon 06-09-2022 Erythrocyte distribution width (RBC) [Ratio] 13.5 % Normal 11.5-14.5 [facility] ([place]) Comment on above: Order Comment: PLEAS E do STAT Performed By: #### G FR, LIPID, CMP #### [address] [address] Hematocrit (Bld) [Volume fraction] 42.8 % Normal 37.0-47.0 [facility] ([place]) Comment on above: Order Comment: PLEAS E do STAT Performed By: #### G FR, LIPID, CMP #### [address] [address] Hgb 14.7 G/dL Normal 12.0-16.0 [facility] ([place]) Comment on above: Order Comment: PLEAS E do STAT Performed By: #### G FR, LIPID, CMP #### [address] [address] MCH (RBC) [Entitic mass] 30.5 pg Normal 27.0-31.2 [facility] ([place]) Comment on above: Order Comment: PLEAS E do STAT Performed By: #### G FR, LIPID, CMP #### [address] [address] MCHC 34.4 G/dL Normal 33.0-37.0 [facility] ([place]) Comment on above: Order Comment: PLEAS E do STAT Performed By: #### G FR, LIPID, CMP #### [address] [address] MCV (RBC) [Entitic vol] 88.6 fL Normal 80.0-94.0 [facility] ([place]) Comment on above: Order Comment: PLEAS E do STAT Performed By: #### G FR, LIPID, CMP #### [address] [address] Platelet 299 10 3/mcL Normal 130-400 [facility] ([place]) Comment on above: Order Comment: PLEAS E do STAT Performed By: #### G FR, LIPID, CMP #### [address] [address] Platelet mean volume (Bld) [Entitic vol] 8.1 fL Normal 7.4-10.4 [facility] ([place]) Comment on above: Order Comment: PLEAS E do STAT Performed By: #### G FR, LIPID, CMP #### [address] [address] RBC 4.82 10 6/mcL Normal 4.20-5.40 [facility] ([place]) Comment on above: Order Comment: PLEAS E do STAT Performed By: #### G FR, LIPID, CMP #### [address] [address] WBC 7.4 10 3/mcL Normal 4.6-10.8 [facility] ([place]) Comment on above: Order Comment: PLEAS E do STAT Performed By: #### G FR, LIPID, CMP #### [address] [place] [address] LABORATORYOrdered By: Javier Landers on 06-09-2022 Basophil, [...] AO Workflow SS PELVIC US WHIon 05-09-2022 [facility] Lab Report: Comprehensive Vt tabolic Profilon 10-27-2016 Albumin mass conc 4.0 g/dL 3.4-5.0 [facility] Work Phone: Albumin/Globulin mass ratio 1.2 {ratio} 0.9-2.4 [facility] Work Phone: ALP enzyme act/vol (Bld) 88 U/L 45-117 [facility] Work Phone: ALT enzyme act/vol 20 U/L 12-78 [facility] Work Phone: Anion gap molar conc 10 mmol/L 5-[address] [facility] Work Phone: AST enzyme act/vol 19 U/L 15-37 [facility] Work Phone: Bilirubin mass conc 0.70 mg/dL 0.20-1.00 [facility] Work Phone: Calcium mass conc 8.8 mg/dL 8.5-10.1 [facility] Work Phone: Chloride molar conc 105 mmol/L 98-107 [facility] Work Phone: CO2 ppres (BldV) 25.0 mmol/L 21.0-32.0 [facility] Work Phone: Creatinine mass conc 0.82 mg/dL 0.55-1.[address] [facility] Work Phone: EST GFR - AA 110 mL/min >60 [facility] Work Phone: GFR/1.73 sq M predicted among non-blacks MDRD vol rate/area (S/P/Bld) 91 mL/min/{1.73_m2} >60 [facility] Work Phone: Globulin mass conc (S) 3.2 g/dL 2.3-3.5 [facility] Work Phone: Glucose mass conc 82 mg/dL 70-110 [facility] Work Phone: Potassium molar conc 4.0 mmol/L 3.5-5.[address] [facility] Work Phone: Protein mass conc 7.2 g/dL 6.4-8.2 [facility] Work Phone: Sodium molar conc 140 mmol/L 136-145 [facility] Work Phone: Urea nitrogen mass conc 12 mg/dL 7-18 [facility] Work Phone: Urea nitrogen/Creatinine mass ratio 14.6 RATIO 10-20 [facility] Work Phone: Lab Report: Lipid Profileon 10-27-2016 Cholesterol in HDL mass conc 58 mg/dL [facility] Work Phone: Cholesterol in LDL mass conc 85 mg/dL 0-130 [facility] Work Phone: Cholesterol mass conc 152 mg/dL [address] [facility] Work Phone: Lipoprotein.pre-beta mass conc 9 mg/dL 5-40 [facility] Work Phone: Triglyceride mass conc 45 mg/dL [facility] Work Phone: Lab Report: Thyroid Stim Hor diana (TSH)on 10-27-2016 Thyrotropin Qn 1.25 u[iU]/mL 0.358-3.74 [facility] Work Phone: Office Visiton 09-26-2016 Adolescent depression screening assessment Adolescent depression screening assessment Invalid Interpretation Code [facility] Work Phone: Adult depression screening assessment Adult depression screening assessment Invalid Interpretation Code [facility] Work Phone: Adult depression screening assessment Adolescent depression screening assessment [facility] Work Phone: Documentation of current medications (procedure) Done Invalid Interpretation Code [facility] Work Phone: PHQ-9 quick depression assessment panel [Reported.PHQ] Adult depression screening assessment [facility] Work Phone: Protein mass conc Done [facility] Work Phone: Tobacco smoking status NHIS Never [facility] Work Phone: Tobacco smoking status NHIS Never smoker [facility] Work Phone: Tobacco use [facility] Never smoker Invalid Interpretation Code [facility] Work Phone: Vital Signs Date Time Vital Sign Value Performing Clinician Facility 01-18-2025 18:30-0400 Body temperature 98.8 [degF] [facility] 01-18-2025 18:30-0400 Diastolic blood pressure 74 mm[Hg] [facility] 01-18-2025 18:30-0400 Heart rate 65 /min [facility] 01-18-2025 18:30-0400 Respiratory rate 16 /min [facility] 01-18-2025 18:30-0400 SaO2% (BldA) [Mass fraction] 97 % [facility] 01-18-2025 18:30-0400 Systolic blood pressure 113 mm[Hg] [facility] 01-18-2025 18:25-0400 Body height 167.64 cm [facility] 01-18-2025 18:25-0400 Body mass index (BMI) [Ratio] 32 kg/m2 [facility] 01-18-2025 18:25-0400 Body weight 89.9 kg [facility] 12-10-2024 14:38-0400 Body mass index (BMI) [Ratio] 30.67 kg/m2 Camelia Herrera APRN.CNM Work Phone: [facility] 12-10-2024 14:38-0400 Body weight 86.18 kg Camelia Herrera EDITORIAL WRITER.CNM Work Phone: [facility] 12-10-2024 14:38-0400 Diastolic blood pressure 60 mm[Hg] Camelia Herrera EDITORIAL WRITER.CNM Work Phone: [facility] 12-10-2024 14:38-0400 Systolic blood pressure 120 mm[Hg] Camelia Ehrrera EDITORIAL WRITER.CNM Work Phone: [facility] 11-26-2024 14:40-0400 Body mass index (BMI) [Ratio] 30.21 kg/m2 Hoda Plotts EDITORIAL WRITER.CNM Work Phone: [facility] 11-26-2024 14:40-0400 Body weight 84.91 kg Hoda Hager EDITORIAL WRITER.CNM Work Phone: [facility] 11-26-2024 14:40-0400 Diastolic blood pressure 60 mm[Hg] Hoda Plotts EDITORIAL WRITER.CNM Work Phone: [facility] 11-26-2024 14:40-0400 Systolic blood pressure 106 mm[Hg] Hoda Plotts EDITORIAL WRITER.CNM Work Phone: [facility] 11-12-2024 14:32-0400 Body mass index (BMI) [Ratio] 29.7 kg/m2 Camelia Herrera EDITORIAL WRITER.CNM Work Phone: [facility] 11-12-2024 14:32-0400 Body weight 83.46 kg Camelia Herrera EDITORIAL WRITER.CNM Work Phone: [facility] 11-12-2024 14:32-0400 Diastolic blood pressure 78 mm[Hg] Camelia Herrera EDITORIAL WRITER.CNM Work Phone: [facility] 11-12-2024 14:32-0400 Systolic blood pressure 128 mm[Hg] Camelia Herrera EDITORIAL WRITER.CNM Work Phone: [facility] 10-28-2024 11:13-0400 Body mass index (BMI) [Ratio] 28.89 kg/m2 Laurie Serra EDITORIAL WRITER.BENDING PRESS OPERATOR Work Phone: [facility] 10-28-2024 11:13-0400 Body weight 81.19 kg Laurie Serra EDITORIAL WRITER.BENDING PRESS OPERATOR Work Phone: [facility] 10-28-2024 11:13-0400 Diastolic blood pressure 66 mm[Hg] Laurie Serra EDITORIAL WRITER.BENDING PRESS OPERATOR Work Phone: [facility] 10-28-2024 11:13-0400 Heart rate 70 /min Laurie Serra EDITORIAL WRITER.BENDING PRESS OPERATOR Work Phone: [facility] 10-28-2024 11:13-0400 SaO2% (BldA) [Mass fraction] 98 % Laurie Serra EDITORIAL WRITER.BENDING PRESS OPERATOR Work Phone: [facility] 10-28-2024 11:13-0400 Systolic blood pressure 113 mm[Hg] Laurie Serra EDITORIAL WRITER.BENDING PRESS OPERATOR Work Phone: [facility] 10-22-2024 14:35-0400 Body mass index (BMI) [Ratio] 28.79 kg/m2 Hoda Plotts EDITORIAL WRITER.CNM Work Phone: [facility] 10-22-2024 14:35-0400 Body weight 80.92 kg Hoda Plotts EDITORIAL WRITER.CNM Work Phone: [facility] 10-22-2024 14:35-0400 Diastolic blood pressure 60 mm[Hg] Hoda Plotts EDITORIAL WRITER.CNM Work Phone: [facility] 10-22-2024 14:35-0400 Systolic blood pressure 100 mm[Hg] Hoda Plotts EDITORIAL WRITER.CNM Work Phone: [facility] 10-08-2024 09:16-0400 Body mass index (BMI) [Ratio] 28.25 kg/m2 Hoda Plotts EDITORIAL WRITER.CNM Work Phone: [facility] 10-08-2024 09:16-0400 Body weight 79.38 kg Hoda Plotts EDITORIAL WRITER.CNM Work Phone: [facility] 10-08-2024 09:16-0400 Diastolic blood pressure 60 mm[Hg] Hoda Plotts EDITORIAL WRITER.CNM Work Phone: [facility] 10-08-2024 09:16-0400 Systolic blood pressure 110 mm[Hg] Hoda Plotts EDITORIAL WRITER.CNM Work Phone: [facility] 09-10-2024 15:13-0400 Body mass index (BMI) [Ratio] 27.6 kg/m2 Hoda Plotts EDITORIAL WRITER.CNM Work Phone: [facility] 09-10-2024 15:13-0400 Body weight 77.56 kg Hoda Plotts EDITORIAL WRITER.CNM Work Phone: [facility] 09-10-2024 15:13-0400 Diastolic blood pressure 66 mm[Hg] Hoda Plotts EDITORIAL WRITER.CNM Work Phone: [facility] 09-10-2024 15:13-0400 Systolic blood pressure 112 mm[Hg] Hoda Plotts EDITORIAL WRITER.CNM Work Phone: [facility] 08-15-2024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 Serum or Plasma Angelique Walden EXTRACTING MACHINE OPERATOR Work Phone: Start: 09-26-2016 End: 10-27-2016 Thyrotropin [Units/volume] in Serum or Plasma Angelique Walden EXTRACTING MACHINE OPERATOR Work Phone: Start: 04-02-2013 Arthroscopy temporom andibular joint surgical VERN URBAN MD Comment on above: RIGHT Plan of Treatment Date Care Activity Detail Author Start: 2043 Zoster Vaccines (1 of 2) Zoster Vaccines (1 of 2) [facility] Start: 02-03-2029 Screening for malignant neoplasm of cervix Cervical Cancer Screening [facility] Start: 03-28-2028 DTaP/Tdap/Td Vaccines (7 - Td or Tdap) DTaP/Tdap/Td Vaccines (7 - Td or Tdap) [facility] Start: 03-28-2028 Urine microalbumin profile [facility] Start: 06-16-2025 Screening for malignant neoplasm of cervix Pap Testing [facility] Start: 03-09-2025 End: 03-09-2025 ambulatory 03/09/2025 11:00 AM [facility] Psychiatry [address] [place] [phone] Laurie Serra, EDITORIAL WRITER.BENDING PRESS OPERATOR [address] [place] [id number] Psychiatry Start: 01-28-2025 End: 01-28-2025 Patient encounter procedure 01/28/2025 2:30 PM EDT Office Visit OB/Gynecology [address] [place] [address] Hoda Hager APRN.CNM [address] [place] [address] [facility]/Gynecology Comment on above: Centering Start: 01-27-2025 End: 01-27-2025 Patient encounter procedure Departed [facility] Work Phone: Start: 01-21-2025 End: 01-21-2025 Patient encounter procedure 01/21/2025 2:30 PM EDT Office Visit OB/Gynecology [address] [place] [address] Hoda Hager APRN.CNM [address] [place] [address] [facility]/Gynecology Comment on above: Centering Start: 01-18-2025 Nonstress test [facility] Start: 01-18-2025 Obstetric monitoring [facility] Start: 01-18-2025 Vital signs measurements [facility] Start: 01-18-2025 [facility] Start: 01-18-2025 Patient discharge [facility] Start: 01-07-2025 End: 01-07-2025 Patient encounter procedure 01/07/2025 2:30 PM EDT Office Visit OB/Gynecology [address] [place] [address] Hoda Hager APRN.CNM [address] [place] [address] [facility] OB/Gynecology Comment on above: Centering Start: 01-02-2025 End: 01-02-2025 ambulatory 01/02/2025 8:[address] [facility] Psychiatry [address] [place] [phone] Laurie Serra APRN.BENDING PRESS OPERATOR [address] [place] [address] Psychiatry Start: 12-28-2024 RSV Vaccine (1 - Risk 1-dose series) RSV Vaccine (1 - Risk 1-dose series) [facility] Start: 12-24-2024 End: 12-24-2024 Patient encounter procedure 12/24/2024 2:30 PM EDT Office Visit OB/Gynecology [address] [place] [address] Hoda Hager APRN.CNM [address] [place] [address] [facility] OB/Gynecology Comment on above: Centering Start: 12-10-2024 End: 12-10-2024 Patient encounter procedure 12/10/2024 2:30 PM EDT Office Visit OB/Gynecology [address] [place] [address] Camelia Herrera APRN.CNM [address] [place] [address] [facility] OB/Gynecology Comment on above: Centering Start: 12-01-2024 Influenza vaccination [facility] Start: 11-28-2024 End: 11-28-2024 Patient encounter procedure 11/28/2024 8:00 AM EDT Routine Office Visit OB/Gynecology [address] [place] [address] Hoda Hager APRN.CNM [address] [place] [address] Glucose Test/OB OB/Gynecology Comment on above: Glucose Test/OB Start: 11-28-2024 End: 11-28-2024 ambulatory 11/28/2024 7:45 AM EDT Results Only [place] [facility] [address] [place] [address] Glucose [place] [address] [facility] Comment on above: Glucose Start: 11-26-2024 End: 11-26-2024 Patient encounter procedure 11/26/2024 2:30 PM EDT Office Visit OB/Gynecology [address] [place] [address] Hoda Hager APRN.CNM [address] [place] [address] [facility] OB/Gynecology Comment on above: Centering Start: 11-26-2024 End: 11-26-2024 ambulatory 11/26/2024 2:15 PM EDT Results Only [place] [address] [facility] [address] [place] [address] Glucose [place] [address] [facility] Laboratory Comment on above: Glucose Start: 11-12-2024 End: 11-12-2024 Patient encounter procedure 11/12/2024 2:30 PM EDT Office Visit OB/Gynecology [address] [place] [address] Camelia Herrera APRN.CNM [address] [place] [address] [facility] OB/Gynecology Comment on above: Centering Start: 11-05-2024 End: 11-05-2024 Patient encounter procedure OB/Gynecology Comment on above: OB Start: 11-04-2024 End: 11-04-2024 Patient encounter procedure 11/04/2024 1:00 PM EDT Office Visit Psychiatry [address] [place] [phone] Laurie Serra APRN.BENDING PRESS OPERATOR [address] [place] [phone] follow up Psychiatry Comment on above: follow up Start: 10-28-2024 End: 10-28-2024 Patient encounter procedure 10/28/2024 11:30 AM EDT Office Visit Psychiatry [address] [place] [phone] Laurie Serra, MELANIE.BENDING PRESS OPERATOR [address] [place] [phone] reschedule from 11/04 follow up Psychiatry Comment on above: reschedule from 11/04 follow up Start: 10-22-2024 End: 10-22-2024 Patient encounter procedure 10/22/2024 2:30 PM EDT Office Visit OB/Gynecology [address] [place] [address] Hoda Hager APRN.CNM [address] [place] [address] Centering OB/Gynecology Comment on above: Centering Start: 10-08-2024 End: 10-08-2024 Patient encounter procedure Maternal Medicine Comment on above: Anatomy Anatomy/OB Start: 09-10-2024 End: 09-10-2024 Patient encounter procedure OB/Gynecology Comment on above: OB Start: 08-15-2024 End: 11-14-2024 CARRIER SCREEN, STANDARD [facility] Work Phone: Comment on above: Expected: 08/15/2024, Expires: Start: 08-15-2024 End: 08-15-2024 Patient encounter procedure OB/Gynecology Comment on above: Nuchal Nuchal/OB Start: 07-18-2024 End: 10-17-2024 ANEMIA REFLEX PANEL ANEMIA REFLEX PANEL Lab Routine with uncertain dates in first trimester (HCC) care, first in first trimester (HCC) Expected: 07/18/2024, Expires: 10/17/2024 [facility] Work Phone: Comment on above: Expected: 07/18/2024, Expires: Start: 07-18-2024 End: 10-17-2024 Chromosome 21 trisomy [Presence] in Blood or Tissue by Cytogenetics [id number] PLUS Lab Routine 8 weeks gestation of (HCC) Expected: 07/18/2024, Expires: 10/17/2024 [facility] Comment on above: Expected: 07/18/2024, Expires: Start: 07-18-2024 End: 10-17-2024 Hemoglobin A1c in Blood HEMOGLOBIN A1C Lab Routine with uncertain dates in first trimester (HCC) care, first in first trimester (HCC) Expected: 07/18/2024, Expires: 10/17/2024 [facility] Comment on above: Expected: 07/18/2024, Expires: Start: 07-18-2024 End: 10-17-2024 Hepatitis B virus surface Ag [Presence] in Serum HEPATITIS B SURFACE ANTIGEN Lab Routine with uncertain dates in first trimester (HCC) care, first in first trimester (HCC) Expected: 07/18/2024, Expires: 10/17/2024 [facility] Comment on above: Expected: 07/18/2024, Expires: Start: 07-18-2024 End: 10-17-2024 Hepatitis C virus Ab [Presence] in Serum HEPATITIS C ANTIBODY IA WITH CONFIRMATION Lab Routine with uncertain dates in first trimester (HCC) care, first in first trimester (HCC) Expected: 07/18/2024, Expires: 10/17/2024 [facility] Comment on above: Expected: 07/18/2024, Expires: Start: 07-18-2024 End: 10-17-2024 HIV 1+2 Ab [Presence] in Serum or Plasma by Immunoassay HIV 1/2 COMBO WITH REFLEX TO DIFFERENTIATION Lab Routine with uncertain dates in first trimester ([facility]) care, first in first trimester ([facility]) Expected: 07/18/2024, Expires: 10/17/2024 [facility] Comment on above: Expected: 07/18/2024, Expires: Start: 07-18-2024 End: 07-18-2025 OBSTETRIC ULTRASOUND WHI OBSTETRIC ULTRASOUND WHI Anc Imaging Routine with uncertain dates in first trimester (HCC) care, first in first trimester ([facility]) Expected: 07/18/2024, Expires: 07/18/2025 [facility] Comment on above: Expected: 07/18/2024, Expires: Start: 07-18-2024 End: 10-17-2024 RUBELLA IGG ANTIBODY RUBELLA IGG ANTIBODY Lab Routine with uncertain dates in first trimester ([facility]) care, first in first trimester ([facility]) Expected: 07/18/2024, Expires: 10/17/2024 [facility] Comment on above: Expected: 07/18/2024, Expires: Start: 07-18-2024 End: 10-17-2024 SYPHILIS TREPONEMAL W/REFLEX SYPHILIS TREPONEMAL W/REFLEX Lab Routine with uncertain dates in first trimester (HCC) care, first in first trimester (HCC) Expected: 07/18/2024, Expires: 10/17/2024 [facility] Comment on above: Expected: 07/18/2024, Expires: Start: 07-18-2024 End: 07-18-2025 TYPE + SCREEN TYPE + SCREEN Blood Bank Routine with uncertain dates in first trimester (HCC) care, first in first trimester (HCC) Expected: 07/18/2024, Expires: 10/17/2024 [facility] Comment on above: Expected: 07/18/2024, Expires: Start: 07-18-2024 End: 07-18-2024 Patient encounter procedure 07/18/2024 8:15 AM EDT Initial Office Visit OB/Gynecology [address] [place] [phone] Yasmeen Vera, EDITORIAL WRITER.BENDING PRESS OPERATOR [address] [place] [phone] OB/Gynecology Start: 06-30-2024 End: 06-30-2024 [facility] 06/30/2024 11:[address] [facility] Psychiatry [address] [place] [phone] Laurie Serra, EDITORIAL WRITER.BENDING PRESS OPERATOR [address] [place] [phone] PROVIDER ORDERED FOLLOW UP VISIT Psychiatry Comment on above: PROVIDER ORDERED FOLLOW UP VISIT Start: 06-13-2024 End: 06-13-2024 Patient encounter procedure 06/13/2024 3:20 PM EDT Office Visit OB/Gynecology [address] [place] [phone] Toña Blankenship MD [address] [place] [address] Consult for firtility OB/Gynecology Comment on above: Consult for firtility Start: 05-16-2024 End: 05-16-2024 ambulatory 05/16/2024 8:30 AM EST Procedure OB/Gynecology [address] [place] [address] [facility]ly [facility], Liaison Planner [facility] [address] [place] [address] Desire for [Z31.9]; Irregular menstrual cycle [N92.6] OB/Gynecology Comment on above: Desire for [Z31.9]; Irregular menstrual cycle [N92.6] Start: 05-07-2024 End: 05-07-2025 US Pelvis PELVIC US WHI Anc Imaging Routine Desire for Irregular menstrual cycle Expected: 05/07/2024, Expires: 05/07/2025 [facility] Comment on above: Expected: 05/07/2024, Expires: Start: 03-28-2024 End: 03-28-2024 Patient encounter procedure 03/28/2024 9:30 AM EST Office Visit OB/Gynecology [address] [place] [address] Camelia Herrera APRN.CNM [address] [place] [address] still having symptoms of BV OB/Gynecology Comment on above: still having symptoms of BV Start: 03-06-2024 End: 03-06-2024 Follow-up encounter 03/06/2024 8:[address] [facility] Psychiatry [address] [place] [phone] Laurie Serra, MELANIE.BENDING PRESS OPERATOR [address] [place] [phone] follow up Psychiatry Comment on above: follow up Start: 02-06-2024 End: 05-07-2024 Follitropin [Units/volume] in Serum or Plasma FOLLICLE STIMULATING HORMONE Lab Routine Encounter for preconception consultation Expected: 02/06/2024, Expires: 05/07/2024 [facility] Comment on above: Expected: 02/06/2024, Expires: Start: 02-04-2024 End: 02-04-2024 Patient encounter procedure 02/04/2024 2:45 PM EST Office Visit OB/Gynecology [address] [place] [address] Camelia Herrera APRN.CNM [address] [place] [address] Annual exam OB/Gynecology Comment on above: Annual exam Start: 01-30-2024 End: 01-30-2024 Patient encounter procedure 01/30/2024 4:00 PM EDT Office Visit OB/Gynecology [address] [place] [address] Camelia Herrera APRN.CNM [address] [place] [address] Annual exam OB/Gynecology Comment on above: Annual exam Start: 01-25-2024 End: 01-25-2024 Follow-up encounter 01/25/2024 2:[address] [facility] Psychiatry [address] [place] [phone] Laurie Serra APRN.BENDING PRESS OPERATOR [address] [place] [phone] follow up Psychiatry Comment on above: follow up Start: 12-27-2023 End: 12-27-2023 Patient encounter procedure 12/27/2023 2:45 PM EDT Office Visit OB/Gynecology [address] [place] [address] Camelia Herrera APRN.CNM [address] [place] [address] Annual OB/Gynecology Comment on above: Annual Start: 12-18-2023 End: 03-18-2024 Follitropin [Units/volume] in Serum or Plasma [facility] Work Phone: Comment on above: Expected: 12/18/2023, Expires: Start: 12-07-2023 End: 03-07-2024 Estradiol (E2) [Mass/volume] in Serum or Plasma ESTRADIOL-17B BLD Lab Routine Encounter for preconception consultation Expected: 12/07/2023 (Approximate), Expires: 03/07/2024 [facility] Comment on above: Expected: 12/07/2023 (Approximate), Expi res: 03/07/2024 Start: 12-02-2023 Covid-19 Vaccine () Covid-19 Vaccine () [facility] Start: 12-02-2023 Covid-19 Vaccine () Covid-19 Vaccine () [facility] Start: 12-02-2023 Influenza vaccination [facility] Start: 11-07-2023 End: 02-06-2024 Progesterone [Mass/volume] in Serum or Plasma PROGESTERONE Lab Routine Encounter for preconception consultation Expected: 11/07/2023 (Approximate), Expires: 02/06/2024 [facility] Work Phone: Comment on above: Expected: 11/07/2023 (Approximate), Expi res: 02/06/2024 Start: 11-06-2023 End: 02-05-2024 Hemoglobin A1c in Blood HEMOGLOBIN A1C Lab Routine Encounter for preconception consultation Expected: 11/06/2023, Expires: 02/05/2024 [facility] Comment on above: Expected: 11/06/2023, Expires: Start: 11-06-2023 End: 02-05-2024 RUBELLA IGG ANTIBODY RUBELLA IGG ANTIBODY Lab Routine Encounter for preconception consultation Expected: 11/06/2023, Expires: 02/05/2024 [facility] Comment on above: Expected: 11/06/2023, Expires: Start: 11-06-2023 End: 02-05-2024 Thyrotropin [Units/volume] in Serum or Plasma THYROID STIMULATING HORMONE Lab Routine Encounter for preconception consultation Expected: 11/06/2023, Expires: 02/05/2024 [facility] Comment on above: Expected: 11/06/2023, Expires: Start: 11-06-2023 End: 02-05-2024 VARICELLA ZOSTER IGG VARICELLA ZOSTER IGG Lab Routine Encounter for preconception consultation Expected: 11/06/2023, Expires: 02/05/2024 [facility] Comment on above: Expected: 11/06/2023, Expires: Start: 11-06-2023 End: 02-05-2024 WHIIVF ANTI MULLERIAN HORMONE WHIIVF ANTI MULLERIAN HORMONE Lab Routine Encounter for preconception consultation Expected: 11/06/2023, Expires: 02/05/2024 [facility] Comment on above: Expected: 11/06/2023, Expires: Start: 10-30-2023 End: 10-30-2023 Patient encounter procedure 10/30/2023 9:30 AM EDT Office Visit OB/Gynecology [address] [place] [phone] Camelia Herrera APRN.CNM [address] [place] [phone] discuss options for Trying to conceive OB/Gynecology Comment on above: discuss options for Trying to conceive Start: 10-18-2023 End: 10-18-2023 Follow-up encounter 10/18/2023 9:00 AM EDT [facility] Psychiatry [address] [place] [phone] Laurie Serra, EDITORIAL WRITER.BENDING PRESS OPERATOR [address] [place] [phone] 3 MONTH FOLLOW UP Psychiatry Comment on above: 3 MONTH FOLLOW UP Start: 08-17-2023 End: 11-16-2023 Choriogonadotropin.beta subunit [Units/volume] in Serum or Plasma HCG QUANTITATIVE Lab Routine Missed menses Expected: 08/17/2023, Expires: 11/16/2023 [facility] Work Phone: Comment on above: Expected: 08/17/2023, Expires: Start: 06-17-2023 PAP TESTING PAP TESTING [facility] Start: 06-17-2023 Screening for malignant neoplasm of cervix Cervical Cancer Screening [facility] Start: 2023 Screening for malignant neoplasm of cervix HPV Testing [facility] Start: 04-02-2023 Depression Assessment Depression Assessment [facility] Start: 12-01-2022 Covid-19 Vaccine () Covid-19 Vaccine () [facility] Start: 12-01-2022 Influenza vaccination [facility] Start: 05-26-2022 End: 05-26-2023 THYROID PEROXIDASE ANTIBODY BLOOD THYROID PEROXIDASE ANTIBODY BLOOD Lab Routine Low T4 Expected: 05/26/2022, Expires: 05/26/2023 [facility] Work Phone: Comment on above: Expected: 05/26/2022, Expires: Start: 05-26-2022 End: 05-26-2023 Thyrotropin [Units/volume] in Serum or Plasma TSH BLD Lab Routine Low T4 Expected: 05/26/2022, Expires: 05/26/2023 [facility] Work Phone: Comment on above: Expected: 05/26/2022, Expires: Start: 05-26-2022 End: 05-26-2023 Thyroxine (T4) [Mass/volume] in Serum or Plasma T4/THYROXINE BLOOD Lab Routine Low T4 Expected: 05/26/2022, Expires: 05/26/2023 [facility] Work Phone: Comment on above: Expected: 05/26/2022, Expires: Start: 05-26-2022 End: 05-26-2023 Thyroxine (T4) free [Mass/volume] in Serum or Plasma T4 FREE/FREE THYROX Lab Routine Low T4 Expected: 05/26/2022, Expires: 05/26/2023 [facility] Work Phone: Comment on above: Expected: 05/26/2022, Expires: Start: 05-26-2022 End: 05-26-2023 Triiodothyronine (T3) [Mass/volume] in Serum or Plasma T3 BLD Lab Routine Low T4 Expected: 05/26/2022, Expires: 05/26/2023 [facility] Work Phone: Comment on above: Expected: 05/26/2022, Expires: Start: 05-26-2022 End: 05-26-2023 Triiodothyronine (T3) Free [Mass/volume] in Serum or Plasma T3 FREE BLD Lab Routine Low T4 Expected: 05/26/2022, Expires: 05/26/2023 [facility] Work Phone: Comment on above: Expected: 05/26/2022, Expires: 4 Start: 05-02-2022 End: 05-02-2023 PELVIC US WHI PELVIC US WHI Anc Imaging Routine Irregular menstrual cycle Expected: 05/02/2022, Expires: 05/02/2023 [facility] Work Phone: Comment on above: Expected: 05/02/2022, Expires: 4 Start: 05-02-2022 End: 07-02-2022 Prolactin [Mass/volume] in Serum or Plasma PROLACTIN BLD Lab Routine Irregular menstrual cycle Expected: 05/02/2022, Expires: 07/02/2022 [facility] Work Phone: Comment on above: Expected: 05/02/2022, Expires: 3 Start: 05-02-2022 End: 05-02-2023 THYROID PEROXIDASE ANTIBODY BLOOD THYROID PEROXIDASE ANTIBODY BLOOD Lab Routine Irregular menstrual cycle Expected: 05/02/2022, Expires: 05/02/2023 [facility] Work Phone: Comment on above: Expected: 05/02/2022, Expires: 4 Start: 05-02-2022 End: 05-02-2023 Thyrotropin [Units/volume] in Serum or Plasma TSH BLD Lab Routine Irregular menstrual cycle Expected: 05/02/2022, Expires: 05/02/2023 [facility] Work Phone: Comment on above: Expected: 05/02/2022, Expires: 4 Start: 05-02-2022 End: 05-02-2023 Thyroxine (T4) [Mass/volume] in Serum or Plasma T4/THYROXINE BLOOD Lab Routine Irregular menstrual cycle Expected: 05/02/2022, Expires: 05/02/2023 [facility] Work Phone: Comment on above: Expected: 05/02/2022, Expires: 4 Start: 05-02-2022 End: 05-02-2023 Thyroxine (T4) free [Mass/volume] in Serum or Plasma T4 FREE/FREE THYROX Lab Routine Irregular menstrual cycle Expected: 05/02/2022, Expires: 05/02/2023 [facility] Work Phone: Comment on above: Expected: 05/02/2022, Expires: 4 Start: 05-02-2022 End: 05-02-2023 Triiodothyronine (T3) [Mass/volume] in Serum or Plasma T3 BLD Lab Routine Irregular menstrual cycle Expected: 05/02/2022, Expires: 05/02/2023 [facility] Work Phone: Comment on above: Expected: 05/02/2022, Expires: 4 Start: 05-02-2022 End: 05-02-2023 Triiodothyronine (T3) Free [Mass/volume] in Serum or Plasma T3 FREE BLD Lab Routine Irregular menstrual cycle Expected: 05/02/2022, Expires: 05/02/2023 [facility] Work Phone: Comment on above: Expected: 05/02/2022, Expires: 4 Start: 04-02-2022 DEPRESSION ASSESSMENT DEPRESSION ASSESSMENT [facility] Start: 2020 HPV Vaccine (1 - 3-dose SCDM series) HPV Vaccine (1 - 3-dose SCDM series) [facility] Start: 09-26-2016 End: 10-27-2016 *CMP Complete Metabolic Panel *CMP Complete Metabolic Panel [facility] Work Phone: Start: 09-26-2016 End: 10-27-2016 Lipid panel [AGGREGATE] *Lipid Profile [facility] Work Phone: Start: 09-26-2016 End: 10-27-2016 Thyroid stimulating hormone (TSH) *TSH [facility] Work Phone: Start: 2014 Screening for malignant neoplasm of cervix Pap Smear [facility] Start: 2012 Urine microalbumin profile [facility] Start: 2011 Anxiety Screening Anxiety Screening [facility] Start: 2011 Depression Screening Depression Screening [facility] Start: 2011 HEPATITIS C SCREENING HEPATITIS C SCREENING [facility] Start: 2011 Hepatitis C screening Hepatitis C Screening [facility] Start: 2011 HIV SCREENING HIV SCREENING [facility] Start: 2011 HIV screening HIV Screening [facility] Start: 03-23-2009 Varicella vaccination Varicella Vaccines (1 of 2 - 2-dose childhood series) [facility] Start: 2005 Depression Screening Depression Screening [facility] Start: 1993 COVID-19 VACCINE (#1) COVID-19 VACCINE (#1) [facility] Start: 1993 HEPATITIS B (1 of 3 - 3-dose series) HEPATITIS B (1 of 3 - 3-dose series) [facility] Start: 1993 Hepatitis B Vaccine (1 of 3 - 3-dose series) Hepatitis B Vaccine (1 of 3 - 3-dose series) [facility] Start: 1993 HIV screening HIV Screening [facility] Bacteria identified in Urine by Culture BACTERIAL CULTURE, URINE Microbiology Routine Dysuria Ordered: 05/07/2024 [facility] Work Phone: Comment on above: Ordered: 05/07/2024 Bacteria identified in Urine by Culture BACTERIAL CULTURE, URINE Microbiology Routine with uncertain dates in first trimester ([facility]) care, first in first trimester ([facility]) 07/18/2024 9:07 AM EDT [facility] BACTERIAL VAGINOSIS NAAT BACTERI AL VAGINOSIS NAAT Lab Routine Vaginal discharge 03/28/2024 3:12 PM EST [facility] MYRA/TRICHOMONAS NAAT MYRA /TRICHOMONAS NAAT Lab Routine Vaginal discharge 03/28/2024 3:12 PM EST [facility] Work Phone: Chlamydia trachomatis+Neisseria gonorrhoeae DNA [Presence] in Unspecified specimen by AD with probe detection GONORRHEA/CHLAMYDIA NAAT Lab Routine with uncertain dates in first trimester ([facility]) care, first in first trimester ([facility]) 07/18/2024 9:07 AM EDT [facility] Patient Education Kick Counts ED False Labor OB Triage: Return to Hospital or Notify Physician if you Experience: [facility] Work Phone: Progesterone [Mass/volume] in Serum or Plasma PROGESTERONE Lab Routine Encounter for preconception consultation 11/06/2023 8:34 AM EDT [facility] TRICHOMONAS VAGINALI S NAAT TRICHOMONAS VAGINALIS NAAT Lab Routine Screen for STD (sexually transmitted disease) 07/18/2024 9:07 AM EDT [facility] Immunizations Immunization Date Immunization Notes Care Provider [facility] 01-12-2022 influenza, injectabl e, quadrivalent, preservative free Toña Blankenship MD Work Phone: [facility] 01-12-2022 influenza virus vacc ine, unspecified formulation Lukas Darling MD Work Phone: [facility] 01-19-2021 influenza, injectabl e, quadrivalent, preservative free Toña Blankenship MD Work Phone: [facility] 01-19-2021 influenza, injectabl e, quadrivalent, contains preservative; Translations: [Fluarix PF Quadrivalent ] [facility] 01-30-2020 Influenza, injectabl e, Madin Ana M Canine Kidney, preservative free, quadrivalent Toña Blankenship MD Work Phone: [facility] 03-28-2018 tetanus and diphther ia toxoids, adsorbed, preservative free, for adult use (5 Lf of tetanus toxoid and 2 Lf of diphtheria toxoid) [facility] 03-28-2018 tetanus toxoid, redu vero diphtheria toxoid, and acellular pertussis vaccine, adsorbed Toañ Blankenship MD Work Phone: [facility] 01-12-2016 influenza, seasonal, injectable, preservative free Toña Blankenship MD Work Phone: [facility] 02-23-2009 novel Influenza-H1N1 , live virus for nasal administration Toña Blankenship MD Work Phone: [facility] 06-15-2008 meningococcal polysaccharide (groups A, C, Y and W-135) diphtheria toxoid conjugate vaccine (MCV4P) [facility] 06-08-2008 tetanus and diphther ia toxoids, adsorbed, preservative free, for adult use (5 Lf of tetanus toxoid and 2 Lf of diphtheria toxoid) [facility] 04-08-1998 diphtheria, tetanus toxoids and acellular pertussis vaccine [facility] 04-08-1998 measles, mumps and rubella virus vaccine Toña Blankenship MD Work Phone: [facility] 04-08-1998 measles/mumps/rubell a virus vaccine [facility] 04-08-1998 poliovirus vaccine, inactivated [facility] 10-16-1994 diphtheria, tetanus toxoids and acellular pertussis vaccine [facility] 07-28-1994 haemophilus influenz ae type b vaccine, PRP-T conjugate [facility] 07-28-1994 measles, mumps and rubella virus vaccine Toña Blankenship MD Work Phone: [facility] 07-28-1994 measles/mumps/rubell a virus vaccine [facility] 04-14-1994 hepatitis B vaccine, unspecified formulation [facility] 1993 diphtheria, tetanus toxoids and acellular pertussis vaccine [facility] 1993 haemophilus influenz ae type b vaccine, PRP-T conjugate [facility] 1993 hepatitis B vaccine, unspecified formulation [facility] 1993 poliovirus vaccine, inactivated [facility] 1993 diphtheria, tetanus toxoids and acellular pertussis vaccine [facility] 1993 haemophilus influenz ae type b vaccine, PRP-T conjugate [facility] 1993 poliovirus vaccine, inactivated [facility] 1993 diphtheria, tetanus toxoids and acellular pertussis vaccine [facility] 1993 haemophilus influenz ae type b vaccine, PRP-T conjugate [facility] 1993 poliovirus vaccine, inactivated [facility] 1993 hepatitis B vaccine, unspecified formulation [facility] Payers Date Payer Category Payer Self-pay 2024 Unknown [id number] 2022 Medicaid [id number] 2022 Private Health Insurance [id number] 2022 Private Health Insurance [id number] 2019 Medicaid [id number] 1993 Unknown [id number] 1993 Unknown [id number] 1993 Unknown [id number] 1993 Unknown [id number] Unknown [id number] Unknown [id number] Social History Date Type Detail Facility Start: 09-23-2019 End: 05-02-2022 Tobacco smoking status NHIS Never smoked tobacco [facility] Start: 05-02-2022 Tobacco use and exposure Smoke less tobacco non-user [facility] Start: 05-02-2022 End: 05-07-2024 Alcohol intake Current drinker of alcohol (finding) [facility] Start: 05-02-2022 Alcohol Comment rarely [facility] Start: 1993 Sex Assigned At Not on file [facility] Start: 1993 Sex Assigned At Female A [facility] Start: 08-24-2022 End: 10-30-2023 History of Social function [facility] Start: 08-24-2022 End: 10-30-2023 Tobacco use panel [facility] Start: 10-18-2014 Adult Depression Screening Assessment 2 [facility] Tobacco smoking stat us NHIS Tobacco smoking consumption unknown [facility] Start: 11-09-2022 End: 11-19-2022 Exposure to SARS-CoV-2 (event) Not sure [facility] Start: 07-15-2024 End: 11-26-2024 Alcoholic beverage intake Ex-drinker (finding) [facility] Start: 07-15-2024 Education 18 [facility] Start: 06-01-2024 [facility] Sexual Orientation [facility] Start: 09-25-2018 Sex Female (finding) [facility] Goals Date Patient Goal Desired Activity /State Personal health goal Functional Status Date Assessment Result Facility 11-19-2022 Functional Status Activity Assistance Ind ependent [facility] 11-19-2022 Functional Status Environmental Safety Implemented Adequate room lighting, Bed in low position, Call device within reach, Non-Slip footwear, Personal items within reach, Sensory aids within reach, Traffic path in room free of clutter, Upper/Half length side rails for bed mobility, Wheels locked [facility] 11-18-2022 Functional Status N/A [facility] Mental Status Date Assessment Result Facility 11-19-2022 Mental Status Orientation Oriented x 4 [facility] 11-18-2022 Mental Status [facility] Clinical Notes 05-02-2022 to 01-18-2025 Note Date & Type Note Facility 01-18-2025 Evaluation note Diagnosis Onset Date Resolution 35 weeks gestation of acute January 18 5:37pm Decreased movements, third trimester, fetus 1 acute January 18, 2025 5:37pm [facility] Work Phone: [phone] NoteHNO ID: [id number] Author: HODA HAGER APRN.CN Service: ? Author Type: Consulting Application Engineer Type: Progress Notes Filed: 01/07/2025 15:23 Note Text: NST SUMMARY PROVIDER ASSESSMENT AND INTERPRETATION Smita Nguyen is a 29 year old female, , who is at 33w3d with an ENE of 02/22/2025, by Last Menstrual Period dating method. Indications for NST: Decreased Movement Baseline: 135 Variability: Moderate Accelerations: Present 15 X 15 Decelerations: None Contractions: TOCO: None Interpretation: Reactive SIGNATURE: Hoda Hager APRN.[facility]10-03-2025 NoteHNO ID: [id number] Author: LAURIE SERRA APRN.BENDING PRESS OPERATOR Service: ? Author Type: Nurse Practitioner Type: [...] visit. Either the patient or their legal uniforms sales representative has been informed of the risks and benefits of -- and alternatives to -- treatment through a remote evaluation and consents to proceed with the evaluation remotely. Recording using ambient AI software for draft documentation of the visit was discussed with the patient/authorized uniforms sales representative; all questions welcomed and answered. Patient/authorized uniforms sales representative agreed to proceed CC: Outpatient [...] 19 ORAL) Take by mouth once daily. [facility] SACCHAROMYCES BOULARDII ORAL INOSITOL ORAL cholecalciferol, [...] Other obsessive-compulsive disorders (more content not included)... [facility]09-10-2025 Instructions* Patient Instructions* Tatum Guillermo MA - 12/10/2024 2:36 PM EDT SEQUENTIAL SCREENINGS The [facility] offers sequential screenings for women who are interested in screenings for chromosomal abnormalities and certain defects during a . The sequential screen combinesultrasound and blood tests to determine the risk [...] this testing. It will require an appointment withour oscillograph technician. This is not an ultrasound performed [...] the above symptoms, contact our office at [phone] and ask to speak with anurse. After hours, you can call doctors registry at [phone] OR call [facility] at [phone] ask to have the doctor carbon furnace operator paged. If you consider this an emergency, dial 6-9-6 or go to your nearest emergency department. NEED HELP? Are you dealing with a violent or abusive relationship? Are you a victim of rape or sexual assult? Call [facility] ([place]) 24 hour Crisis Hotline: 566.321.5484 or 013-055-3205. MANUAL Your Guide to a Healthy manual is now on-line. Visit [email or web address] to download your free copy documented in this encounterR[facility]09-10-2025 Miscellaneous Notes* Quick Notes - Camelia Herrera APRN.CNM - 12/10/2024 2:30 PM EDT ESAU-S: Smita Nguyen is a 29 year old female who presents at 29w3d with ENE:02/22/2025, by Last Menstrual Period for a routine visit. Denies headache, visual changes, chest pain, shortness of breath,vaginal bleeding, leakage of fluid, or dysuria. Feeling [...] week Camelia Herrera APRN.CNM documented in this encounterRivers[facility] Hospital09-10-2025 Progress note* Quick Notes - Camelia Herrera APRN.CNM - 12/10/2024 2:30 PM EDT ESAU-S: Smita Nguyen is a 29 year old female who presents at 29w3d with ENE:02/22/2025, by Last Menstrual Period for a routine visit. Denies headache, visual changes, chest pain, shortness of breath,vaginal bleeding, leakage of fluid, or dysuria. Feeling [...] RTO in 2 week Camelia Herrera APRN.CNM [facility]08-27-2025 Instructions* Patient Instructions* Marce Bello MA - 11/26/2024 2:38 PM EDT SEQUENTIAL SCREENINGS The [facility] offers sequential screenings for women who are interested in screenings for chromosomal abnormalities and certain defects during a . The sequential screen combinesultrasound and blood tests to determine the risk [...] this testing. It will require an appointment withour oscillograph technician. This is not an ultrasound performed [...] the above symptoms, contact our office at [phone] and ask to speak with anurse. After hours, you can call doctors registry at [phone] OR call [facility] at [phone] ask to have the doctor carbon furnace operator paged. If you consider this an emergency, dial 9-1-7 or go to your nearest emergency department. NEED HELP? Are you dealing with a violent or abusive relationship? Are you a victim of rape or sexual assult? Call [facility] ([place]) 24 hour Crisis Hotline: 157.675.3974 or 905-502-0680. MANUAL Your Guide to a Healthy manual is now on-line. Visit [email or web address] to download your free copy documented in this encounterRivers[facility] Hospital08-27-2025 Progress note* Quick Notes - Hoda Hager APRN.CNM - 11/26/2024 7:45 AM EDT CP CENTERING S: Smita Nguyen is a 29 year old female who presents at 27 weeks gestation for a routinve visit /centering group. Positive movements. Completed GCT. Denies headache, visual changes, chest pain, shortness of breath, vaginal bleeding, leakage of fluid, or dysuria. Feeling well, no complaints. Leaving for vacation next week in [place]. O: See flow sheet Gen: No apparent distress Abd: Gravid, nontender ASSESSMENT/PLAN: 1. 27 weeks gestation of 2. Supervision of normal first , antepartum 3. Other depression 4. History of depression - Continue Lexapro 20 mg PO Daily - Continue vitamin and ASA - Traveling via plane to [place] next week- wearing compression stockings and increase [...] or sooner if needed Hoda Hager APRN.CNM [facility]08-27-2025 Miscellaneous Notes* Quick Notes - Hoda Hager APRN.CNM - 11/26/2024 7:45 AM EDT CP CENTERING S: Smita Nguyen is a 29 year old female who presents at 27 weeks gestation for a routinve visit /centering group. Positive movements. Completed GCT. Denies headache, visual changes, chest pain, shortness of breath, vaginal bleeding, leakage of fluid, or dysuria. Feeling well, no complaints. Leaving for vacation next week in [place]. O: See flow sheet Gen: No apparent distress Abd: Gravid, nontender ASSESSMENT/PLAN: 1. 27 weeks gestation of 2. Supervision of normal first , antepartum 3. Other depression 4. History of depression - Continue Lexapro 20 mg PO Daily - Continue vitamin and ASA - Traveling via plane to [place] next week- wearing compression stockings and increase [...] needed Hoda Hager APRN.CNM documented in this encounterRiverside [facility] Hospital08-25-2025 Telephone encounter Note * Telephone Encounter - Mora Villarreal RN - 11/24/2024 4:25 PM EDT Order signed and faxed. Mora Villarreal RN [facility]08-25-2025 Miscellaneous Notes* Telephone Encounter - Mora Villarreal RN - 11/24/2024 4:25 PM EDT Order signed and faxed. Mora Villarreal RN * Telephone Encounter - Glendy Castaneda LPN - 11/20/2024 5:17 PM EDT Breast pump prescription received from [employer]. Order to Mario Alberto Herrera to sign documented in this encounterRiverside [facility] Hospital08-21-2025 Telephone encounter Note * Telephone Encounter - Glendy Castaneda LPN - 11/20/2024 5:17 PM EDT Breast pump prescription received from [employer]. Order to Mario Alberto Herrera to sign [facility]08-13-2025 Instructions* Patient Instructions* Camelia Herrera APRN.CNM - 11/12/2024 2:53 PM [...] after blood is drawn. documented in this encounterRiverside [facility] Hospital08-13-2025 Progress note* Quick Notes - Camelia Herrera APRN.CNM - 11/12/2024 2:49 PM EDT ESAU-S: Smita Nguyen is a 29 year old female who presents at 25w3d with ENE:02/22/2025, by Last Menstrual Period for a routine visit. Denies headache, visual changes, chest pain, shortness of breath,vaginal bleeding, leakage of fluid, or dysuria. Feeling [...] RTO in 2 week Camelia Herrera APRN.CNM [facility]08-13-2025 Miscellaneous Notes* Quick Notes - Camelia Herrera APRN.CNM - 11/12/2024 2:49 PM EDT ESAU-S: Smita Nguyen is a 29 year old female who presents at 25w3d with ENE:02/22/2025, by Last Menstrual Period for a routine visit. Denies headache, visual changes, chest pain, shortness of breath,vaginal bleeding, leakage of fluid, or dysuria. Feeling [...] week Camelia Herrera APRN.CNM documented in this encounterRiverside Methodist Hospital07-29-2025 Instructions* Patient Instructions* Laurie Serra APRN.CNP - 10/28/2024 11:01 PM EDT We discussed your and mental health: - You are currently 23 weeks , with a due date around February 22. You are planning a water at [facility], but you are open to other options if necessary. - Continue taking Lexapro 30 mg daily as prescribed. This medication does not impact milk supply and is safe to continue during and . A refill has been sent to [facility], and you can pick it up [...] --call the National Suicide Prevention Lifeline at 341 (786-921-3110) --text the Crisis Text Line (text HOME to 052978) --call 911 and let them know you are having a mental health crisis or go to your nearest Emergency Room for stabilization. --You can also call Mobile Crisis at 430-637-4201. -- You may call the department appointment line at [phone] to schedule your appointment. -- Please call my nurse at [phone] or send me a message in [employer] with any questions or concerns between appointments. documented in this encounterRiverside Methodist Hospital07-29-2025 NoteHNO ID: [id number] Author: LAURIE SERRA APRN.DAVY Service: ? Author Type: Nurse Practitioner Type: Progress Notes Filed: 10/28/2024 23:01 Note Text: FOLLOW UP - PSYCHIATRIC PROGRESS NOTE Visit Type:In person Recording using [employer] software for draft documentation of the visit was discussed with the patient/authorized uniforms sales representative; all questions welcomed and answered. Patient/authorized uniforms sales representative agreed to proceed CC: Outpatient follow-up and safety monitoring of previously prescribed psychiatric medication, psychotherapy or other treatment HPI: Patient is a 29-year-old female with a history of anxiety, currently 23 weeks , presenting for follow-up. Patient reports feeling the best she has since 2011, describing her mental state as "phenomenal." She attributes this improvement to her current medication regimen, which includes Lexapro 30 mg and inositol. She discontinued progesterone due to recommendations from her midwives at [facility]. She has not needed to use hydroxyzine or Ativan recently but keeps Ativan as a "safety net," carrying 1-2 pills with her and keeping the rest at home. She is planning a water at [facility] and is open to alternative delivery [...] during the first trimester. Her sleep is "so-so," but she is not taking any medication for it and denies experiencing vivid dreams or nightmares. 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 She is preparing for the arrival of her baby, cleaning and organizing the nursery, and engaging in "nesting" behaviors. She is also reading extensively about vaccines to make informed decisions for her child. Her is described as "ridiculously laid back" and supportive, with experience around children through his nieces and nephews. She mentions a difficult night in April when she learned of her brother and ivuaoc-kt-tnn's , but she became herself in May, [...] 19 ORAL) Take by mouth once daily. [facility] SACCHAROMYCES BOULARDII ORAL INOSITOL ORAL cholecalciferol, [...] logical, and goal-directed Associat (more content not included)...[facility]07-29-2025 History of Present illness Narrative* Laurie Serra APRN.[facility] - 10/28/2024 11:32 AM EDT Images from the original note were not included. FOLLOW UP - PSYCHIATRIC PROGRESS NOTE Visit Type:In person Recording using [employer] software for draft documentation of the visit was discussed with the patient/authorized uniforms sales representative; all questions welcomed and answered. Patient/authorized uniforms sales representative agreed to proceed CC: Outpatient follow-up and safety monitoring of previously prescribed psychiatric medication, psychotherapy or other treatment HPI: Patient is a 29-year-old female with a history of anxiety, currently 23 weeks , presenting for follow-up. Patient reports feeling the best she has since 2011, describing her mental state as "phenomenal." She attributes this improvement to her current medication regimen, which includes Lexapro 30 mg and inositol. She discontinued progesterone due to recommendations from her midwives at [facility]. She has not needed to use hydroxyzine or Ativan recently but keeps Ativan as a "safety net," carrying 1-2 pills with her and keeping the rest at home. She is planning a water at [facility] and is open to alternative delivery [...] during the first trimester. Her sleep is "so-so," but she is not taking any medication for it and denies experiencing vivid dreams or nightmares. 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 She is preparingfor the arrival of her baby, cleaning and organizing the nursery, and engaging in "nesting" behaviors. She is also reading extensively about vaccines to make informed decisions for her child. Her is described as "ridiculously laid back" and supportive, with experience around children through his nieces and nephews. She mentions a difficult night in April when she learned of her brother myuzvexqm-mq-bdz's , but she became herself in May, [...] population = 50. Five points is a clinicallymeaningful difference.) Physical T-Score 54.1 54.1 50.8 54.1 [...] 19 ORAL) Take by mouth once daily. [facility] SACCHAROMYCES BOULARDII ORAL INOSITOL ORAL cholecalciferol, [...] Appropriate Insight: Good Judgment: Good DATA REVIEWED: [facility] website checked and validated. All prescriptions have been APPROPRIATELY filled. No suspiciousactivity was identified. 10/28/2024 by Laurie Serra APRN.[facility] Psychiatric scales, Labs, and Electronic medical record ASSESSMENT & PLAN: 1. 1. FREDO (generalized anxiety disorder) (F41.1) Recurrent major depressive disorder, in full remission (F33.42) Currently well-managed with Lexapro 30 mg and Inositol. No recent use of Hydroxyzine or Ativan. Engaged in regular exercise and cognitive behavioral therapy. - Continue Lexapro 30 mg daily; refill sent to [facility]. - Advised against using Hydroxyzine due to potential impact on milk supply during . - Keep Ativan available as a safety measure; instructed on "pump and dump" if used during . - Discussed potential [...] regimen. - Refill for Lexapro sent to [facility]. Medical Decision Making: Problems: Moderate: 2+ stable chronic illnesses Risk: Moderate: Moderate risk from testing/treatment and Drug management Medical Decision Making Level: 4 - Moderate ADD ON PSYCHOTHERAPY CODE : No SIGNATURE: Laurie Serra APRN.CNP PATIENT NAME: Smita Nguyen DATE: October 28, 2024 TIME: 11:32 AM documented in this encounterRiverside Methodist Hospital07-23-2025 Instructions* Patient Instructions* Marce Bello MA - 10/22/2024 2:35 PM EDT SEQUENTIAL SCREENINGS The [facility] offers sequential screenings for women who are interested in screenings for chromosomal abnormalities and certain defects during a . The sequential screen combinesultrasound and blood tests to determine the risk [...] this testing. It will require an appointment withour oscillograph technician. This is not an ultrasound performed [...] the above symptoms, contact our office at [phone] and ask to speak with anurse. After hours, you can call doctors registry at [phone] OR call [facility] at [phone] ask to have the doctor carbon furnace operator paged. If you consider this an emergency, dial 9-1-9 or go to your nearest emergency department. NEED HELP? Are you dealing with a violent or abusive relationship? Are you a victim of rape or sexual assult? Call [facility] ([place]) 24 hour Crisis Hotline: 977.546.9305 or 104-761-1643. MANUAL Your Guide to a Healthy manual is now on-line. Visit [email or web address] to download your free copy documented in this encounterRiverside [facility] Hospital07-23-2025 Progress note* Quick Notes - Hoda Hager APRN.CNM - 10/22/2024 9:04 AM EDT CP- CENTERING S: Smita Nguyen is a 29 year old female who presents at 22 weeks gestation for a routine visit/centering group. Not feeling movements to date which causes anxiety. Anterior placenta. Continues to work out and reports "feeling the best she has in a long time". Reports mood elevated and feelsgreat physically. Denies headache, visual changes, chest pain, [...] or sooner if needed Hoda Hager APRN.CNM [facility]07-23-2025 Miscellaneous Notes* Quick Notes - Hoda Hager APRN.CNM - 10/22/2024 9:04 AM EDT CP- CENTERING S: Smita Nguyen is a 29 year old female who presents at 22 weeks gestation for a routine visit/centering group. Not feeling movements to date which causes anxiety. Anterior placenta. Continues to work out and reports "feeling the best she has in a long time". Reports mood elevated and feelsgreat physically. Denies headache, visual changes, chest pain, [...] needed Hoda Hager APRN.CNM documented in this encounterRiverside Methodist Hospital07-09-2025 Instructions* Patient Instructions* Lisandro Rainey MA - 10/08/2024 9:15 AM EDT SEQUENTIAL SCREENINGS The [facility] offers sequential screenings for women who are interested in screenings for chromosomal abnormalities and certain defects during a . The sequential screen combinesultrasound and blood tests to determine the risk [...] this testing. It will require an appointment withour oscillograph technician. This is not an ultrasound performed [...] the above symptoms, contact our office at [phone] and ask to speak with anurse. After hours, you can call doctors registry at [phone] OR call [facility] at [phone] ask to have the doctor carbon furnace operator paged. If you consider this an emergency, dial 9-1-2 or go to your nearest emergency department. NEED HELP? Are you dealing with a violent or abusive relationship? Are you a victim of rape or sexual assult? Call [facility] ([place]) 24 hour Crisis Hotline: 599.141.9597 or 752-067-9573. MANUAL Your Guide to a Healthy manual is now on-line. Visit [email or web address] to download your free copy documented in this encounterRiverside [facility] Hospital07-09-2025 Progress note* Quick Notes - Hoda Hager APRN.CNM - 10/08/2024 8:30 AM EDT S: Smita Nguyen is a 29 year [...] or sooner if needed Hoda Hager APRN.CNM [facility]07-09-2025 Miscellaneous Notes* Quick Notes - Hoda Hager APRN.CNM - 10/08/2024 8:30 AM EDT S: Smita Nguyen is a 29 year [...] needed Hoda Hager APRN.CNM documented in this encounterRiverside Methodist Hospital06-30-2025 Telephone encounter Note * Telephone Encounter - Lisandro Rainey MA - 09/29/2024 10:07 AM EDT Patient scheduled for Centering. Lisandro Rainey MA [facility]06-30-2025 Miscellaneous Notes* Telephone Encounter - Lisandro Rainey MA - 09/29/2024 10:07 AM EDT Patient scheduled for Centering. Lisandro Rainey MA documented in this encounterRiverside Methodist Hospital06-24-2025 Telephone encounter Note * Telephone Encounter - Ana Pickens APRN.CNP - 09/23/2024 8:55 AM EDT Covering for regular provider Laurie Serra. Will approve fill at this time [facility]06-24-2025 Miscellaneous Notes* Telephone Encounter - Ana Pickens APRN.CNP - 09/23/2024 8:55 AM EDT Covering for regular provider Laurie Serra. Will approve fill at this time * Telephone Encounter - Regina Fletcher - 09/23/2024 7:41 AM EDT Last: 06/23/24 TREATMENT PLAN: Continue Lexapro 30 mg at the same dose to address mood and anxiety symptoms. Utilize Hydroxyzine and Ativan as needed to manage anxiety symptoms. Continue engagement in individual and couple's psychotherapy. Follow up in 3 months or sooner if needed. Next: [facility] msg sent to schedule documented in this encounterRiverside [facility] Hospital06-24-2025 Telephone encounter Note * Telephone Encounter - Regina Fletcher - 09/23/2024 7:41 AM EDT Last: 06/23/24 TREATMENT PLAN: Continue Lexapro 30 mg at the same dose to address mood and anxiety symptoms. Utilize Hydroxyzine and Ativan as needed to manage anxiety symptoms. Continue engagement in individual and couple's psychotherapy. Follow up in 3 months or sooner if needed. Next: [facility] msg sent to schedule [facility]06-11-2025 Progress note* Quick Notes - Hoda Hager APRN.CNM - 09/10/2024 3:41 PM EDT S: Smita Nguyen is a 29 year [...] for anatomy US and KING Hager APRN.CNM [facility] Work Phone: 1(463) 511-921606-11-2025 Miscellaneous Notes* Quick Notes - Hoda Hager APRN.CNM - 09/10/2024 3:41 PM EDT S: Smita Nguyen is a 29 year [...] and KING Hager APRN.CNM documented in this encounterRiverside Methodist Hospital06-11-2025 Instructions* Patient Instructions* Lisandro Rainey MA - 09/10/2024 3:11 PM EDT SEQUENTIAL SCREENINGS The [facility] offers sequential screenings for women who are interested in screenings for chromosomal abnormalities and certain defects during a . The sequential screen combinesultrasound and blood tests to determine the risk [...] this testing. It will require an appointment withour oscillograph technician. This is not an ultrasound performed [...] the above symptoms, contact our office at [phone] and ask to speak with anurse. After hours, you can call doctors registry at [phone] OR call [facility] at [phone] ask to have the doctor carbon furnace operator paged. If you consider this an emergency, dial [phone] or go to your nearest emergency department. NEED HELP? Are you dealing with a violent or abusive relationship? Are you a victim of rape or sexual assult? Call [facility] ([place]) 24 hour Crisis Hotline: 784.745.4609 or 292-426-0116. MANUAL Your Guide to a Healthy manual is now on-line. Visit [email or web address] to download your free copy documented in this encounterRivers[facility] Hospital05-16-[facility]25 Instructions* Patient Instructions* Camelia Herrera APRN.LANETTEM - 08/15/2024 2:34 PM EDT Low Dose Aspirin This sheet talks about exposure to low dose aspirin in and while . This information should not take the place of medical care and advice from your healthcare provider.\\ What is low dose aspirin? Aspirin is also known as acetylsalicylic acid. It is a common prescription and nzgq-bph-hgedpsr medication similar to other non-steroidal inflammatory drugs (NSAIDs) like ibuprofen (Motrin ) and naproxen (Aleve ). Aspirin reduces inflammation, fever, and pain. Aspirin can prevent blood clots, which can make it useful in treating or preventing conditions like heart attacks and strokes. Low dose aspirin ranges from 60 to 150 mg daily, but the usual dose taken during to treator prevent certain conditions is 81 mg daily.Regular [...] preferred during . Aspirin eliminates from an infant s body more slowly than from an adult s body, so aspirin levels in the infant s body could build up over time with long-term use of aspirin. Using high doseaspirin can lower the body s ability to clot blood(could lead to easier bruising or bleeding). This is not likely to happen withlow dose aspirin. Talk with your Healthcare provider [...] considered necessary for men to stop using lowdose aspirin before trying to get their partner . However, men undergoing fertility treatment may want to talk with their healthcare providers about whether or not they need to stop taking aspirin. In general, exposures that fathers or sperm donors have are unlikely to increase the risks to a . For more information, please see the [employer] fact sheet Paternal Exposures at [email or web address]-sheets/ovopmcya-hxjeduezz-vdmzbjxui/. SEQUENTIAL SCREENINGS [facility] offers sequential screenings for women who are interested in screenings for chromosomal abnormalities and certain defects during a . The sequential screen combinesultrasound and blood tests to determine the risk [...] this testing. It will require an appointment withour oscillograph technician. This is not an ultrasound performed [...] the above symptoms, contact our office at [phone] and ask to speak with anurse. After hours, you can call doctors registry at [phone] OR call [facility] at [phone] ask to have the doctor carbon furnace operator paged. If you consider this an emergency, dial 9-1-8 or go to your nearest emergency department. NEED HELP? Are you dealing with a violent or abusive relationship? Are you a victim of rape or sexual assult? Call [facility] ([place]) 24 hour Crisis Hotline: 444.634.8968 or 708-019-5640. MANUAL Your Guide to a Healthy manual is now on-line. Visit [email or web address] to download your free copy documented in this encounterRiverside [facility] Hospital05-16-2025 Progress note* Quick Notes - Camelia Herrera APRN.CNM - 08/15/2024 2:13 PM EDT ESAU-S: Smita Nguyen is a 29 year old female who presents at 12w5d with ENE:02/22/2025, by Last Menstrual Period for a routine visit. Denies headache, visual changes, chest pain, shortness of breath,vaginal bleeding, leakage of fluid, or dysuria. Feeling [...] RTO in 4 weeks Camelia Herrera APRN.CNM [facility]-16[facility] Miscellaneous Notes* Quick Notes - Camelia Herrera APRN.CNM - 08/15/2024 2:13 PM EDT ESAU-S: Smita Nguyen is a 29 year old female who presents at 12w5d with ENE:02/22/2025, by Last Menstrual Period for a routine visit. Denies headache, visual changes, chest pain, shortness of breath,vaginal bleeding, leakage of fluid, or dysuria. Feeling [...] weeks Camelia Herrera APRN.CNM documented in this encounterRiverside [facility] Hospital04-18-2025 Instructions* Patient Instructions* Mary Kay Wiseman LPN - 07/18/2024 7:57 AM EDT Please select the following link to access the [facility] Your Guide to a Healthy . [email or web address] documented in this encounterRiverside Methodist Hospital04-15-2025 NoteHNO ID: [id number] Author: YASMEEN VERA APRN.DAVY Service: ? Author Type: Nurse Practitioner Type: Progress Notes Filed: 07/18/2024 10:03 Note Text: Patient declined vice president of academic affairs. *Pt has a history of depression/anxiety diagnosed in 2011. Doing well on medication. Sees phsychologist and psychiatrist (Dr Murray) Discussed increased risks of depression during and and importance of reporting the development or worsening of symptoms should they occur. Patient states she had suicidal and homicidal thoughts in 2022. She states she "still has thoughts that come and go but not like before. It's a huge progress." *History of Bartonella diagnosed 07/2023 by Evie [...] pre-existing diabetes: No No results found for: "ABORHD" No weight on file for this encounter. 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 135 tablet 0 SACCHAROMYCES BOULARDII O (more content not included)...[facility]04-15-2025 History of Present illness Narrative* Yasmeen Vera APRN.BENDING PRESS OPERATOR - 07/15/2024 4:34 PM EDT Patient declined vice president of academic affairs. *Pt has a history of depression/anxiety diagnosed in 2011. Doing well on medication. Sees phsychologist and psychiatrist (Dr Murray) Discussed increased risks of depression during and and importance of reporting the development or worsening of symptoms should they occur. Patient states she had suicidal and homicidal thoughts in 2022. She states she "still has thoughts that come and go but not like before. It's a huge progress." *History of Bartonella diagnosed 07/2023 by Evie Avila. She would like to arrange for umbilical cord testing . Evie Avila will assist. Patient aware any cord blood testing would need to be arranged prior to delivery. Considering genetic carrier screening testing and aneuploidy screening INITIAL OB ASSESSMENT HPI: Smita is a 29 year old White here to establish Obstetrical Care. Patient's last menstrualperiod was 05/18/2024 (exact date). from OB Dating [...] pre-existing diabetes: No No results found for: "ABORHD" No weight on file for this encounter. 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 As applicable, any other physician, advance practice provider, medical student, or other health professional student that will be observing or involved in the sensitive examination for educational or training purposes was discussed with the Patient or Authorized Switch Repairer. The Patient or Authorized Switch Repairer has agreed to proceed with the sensitive [...] +cardiac activity, CRL consistent with LMP. Yasmeen Vera APRN.BENDING PRESS OPERATOR SBIRT Smita Clemonscynthiaandre was given the 4P's screening tool. Smita answered "No" to all the questions, the result is [...] Your guide to a health and the Cnmt. Reviewed midwifery and lay midwife services that are available. 2) Screening: Hemoglobin [...] aneuploidy screening was provided. The patient chooses toproceed with First trimester early anatomy ultrasound (12-13w6d) [...] Follow up in 4 weeks or sooner prakbar. Yasmeen Vera APRN.DAVY documented in this encounterRiverside [facility] Hospital04-15-2025 Telephone encounter Note * Telephone Encounter - Pamela Cooper RN - 07/15/2024 3:29 PM EDT Pt called back for intake questions. Informed her MA is unavailable at this time; however, message will be sent if she is available between patients tomorrow, she may be able to call-Pt states she isavailable tomorrow. Suzanne notified. However, did inform Pt that if Deann is unable to return c all, we ask that she come 30 minutes prior to appt for intake questions and to arrive with full bladder. Pt voiced understanding. Pamela Cooper RN [facility]04-15-2025 Miscellaneous Notes* Telephone Encounter - Pameal Cooper RN - 07/15/2024 3:29 PM EDT Pt called back for intake questions. Informed her MA is unavailable at this time; however, message will be sent if she is available between patients tomorrow, she may be able to call-Pt states she isavailable tomorrow. Suzanne notified. However, did inform Pt that if Deann is unable to return c all, we ask that she come 30 minutes prior to appt for intake questions and to arrive with full bladder. Pt voiced understanding. Pamela Cooper, RN * Telephone Encounter - Deann Perez MA - 07/15/2024 2:52 PM EDT Attempted to contact patient by phone number listed in chart to go over new ob intake questions. Noanswer. Had to leave a voicemail. Patient was advised to come in 30 minutes early to her appointment to complete if she is unable to speak to someone. Deann Perez MA documented in this encounterRiverside [facility] Hospital04-15-2025 Telephone encounter Note * Telephone Encounter - Deann Perez MA - 07/15/2024 2:52 PM EDT Attempted to contact patient by phone number listed in chart to go over new ob intake questions. Noanswer. Had to leave a voicemail. Patient was advised to come in 30 minutes early to her appointment to complete if she is unable to speak to someone. Deann Perez MA [facility]03-24-2025 Instructions* Patient Instructions* Laurie Serra, EDITORIAL WRITER.BENDING PRESS OPERATOR - 06/23/2024 10:47 PM EDT TREATMENT PLAN: Continue Lexapro 30 mg at the same dose to address mood and anxiety symptoms. Utilize Hydroxyzine and Ativan as needed to manage anxiety symptoms. Continue engagement in individual and couple's psychotherapy. Follow up in 3 months or sooner if needed. For those experiencing a suicidal crisis: --call the National Suicide Prevention Lifeline at 986 (573-928-6491) --text the Crisis Text Line (text HOME to 828455) --call 043 and let them know you are having a mental health crisis or go to your nearest Emergency Room for stabilization. --You can also call Mobile Crisis at [phone]. -- You may call the department appointment line at [phone] to schedule your appointment. -- Please call my nurse at [phone] or send me a message in [employer] with any questions or concerns between appointments. documented in this encounterRiverside [facility] Hospital03-24-2025 NoteHNO ID: [id number] Author: LAURIE SERRA APRN.DAVY Service: ? Author Type: Nurse Practitioner Type: [...] visit. Either the patient or their legal uniforms sales representative has been informed of the [...] sooner if needed. Today Smita shares that "I am doing okay". is going to switch to a new [...] Affect: Full and appropri (more content not included)...[facility]03-24-2025 History of Present illness Narrative* Laurie Serra, EDITORIAL WRITER.BENDING PRESS OPERATOR - 06/23/2024 3:02 PM EDT Images from the original note were not [...] accepted the risk verbally prior to proceeding wi th encounter. I have communicated my name and active licensure. The patient's identity and physicallocation were verified at the time of this visit. Either the patient or their legal uniforms sales representative has been informed of the [...] sooner if needed. Today Smita shares that "I am doing okay". is going to switch to a new [...] 2024 TIME: 3:03 PM documented in this encounterRiverside [facility] Hospital03-14-2025 NoteHNO ID: [id number] Author: TOÑA BLANKENSHIP MD Service: ? Author [...] monitor now. Has been on progesterone for "mood stabilization". has semen analysis that was normal. Menses [...] Living0 SAB0 IAB0 Ectopic0 Multiple0 Live Births0 Medical Officer History LMP: 05/18/2024 (Exact Date), Having periods Age at Menarche: Age at First : Age at Menopause: Medical Officer History Comments: Sexual Activity: Yes; Male Contraception: [...] discussed with the Patient or Patient's Authorized Switch Repairer. As applicable, any other physician, advance practice provider, medical student, or other health professional student that will be observing or involved in the sensitive examination for educational or training purposes was discussed with the Patient or Authorized Switch Repairer. The Patient or Authorized Switch Repairer has agreed to proceed with the sensitive [...] levels and FSH Medi (more content not included)...[facility]03-14-2025 History of Present illness Narrative* Toña Blankenship MD - 06/13/2024 3:19 PM EDT Smita Nguyen is a 29 year old female who presents for problem visit for preconceptual counseling and irreg menses HPI: 29 YOF has tried to conceive for past year. Has been using LH strips to detect ovulation. Has been using home fertility monitor now. Has been on progesterone for "mood stabilization". has semen analysis that was normal. Menses [...] Living0 SAB0 IAB0 Ectopic0 Multiple0 Live Births0 Medical Officer History LMP: 05/18/2024 (Exact Date), Having periods Age at Menarche: Age at First : Age at Menopause: Medical Officer History Comments: Sexual Activity: Yes; Male Contraception: [...] discussed with the Patient or Patient's Authorized Switch Repairer. As applicable, any other physician, advance practice provider, medical student, or other health professional student that will be observing or involved in the sensitive examination for educational or training purposes was discussed with the Patient or Authorized Switch Repairer. The Patient or Authorized Switch Repairer has agreed to proceed with the sensitive [...] Moderate Toña Blankenship MD documented in this encounterRiverside [facility] Hospital02-27-2025 Telephone encounter Note * Telephone Encounter - Laurie Serra APRN.CNP - 05/29/2024 9:39 AM EST Refill sent to the pharmacy. Patient is due to schedule a follow up appointment with the provider. [facility]02-[facility] Miscellaneous Notes* Telephone Encounter - Laurie Serra APRN.CNP - 05/29/2024 9:39 AM EST Refill sent to the pharmacy. Patient is due to schedule a follow up appointment with the provider. * Telephone Encounter - Robert Solis RN - 05/29/2024 9:30 AM EST Pt reports she only has 1-2 days left on this Rx. Last appt with Laurie: 03-06-24 Next appt: none documented in this encounterRiverside Methodist Hospital02-27-2025 Telephone encounter Note * Telephone Encounter - Robert Solis RN - 05/29/2024 9:30 AM EST Pt reports she only has 1-2 days left on this Rx. Last appt with Laurie: 03-06-24 Next appt: none [facility]02-17-2025 NoteHNO ID: [id number] Author: MARCIE SHIELDS MD Service: ? Author Type: Physician Type: Progress Notes Filed: 05/19/2024 12:36 Note Text: Smita Nguyen is a 29 year old female who presented for tram driver ultrasound today. Encounter Diagnosis ICD-10-CM 1. Desire for Z31.9 2. Irregular menstrual cycle N92.6 Please see report under imaging tab. Marcie Shields MD May 19, 2024 12:34 [facility]02-17-2025 History of Present illness Narrative* Marcie Shields MD - 05/19/2024 12:34 PM EST Smita Nguyen is a 29 year old female who presented for tram driver ultrasound today. Encounter Diagnosis ICD-10-CM 1. Desire for Z31.9 2. Irregular menstrual cycle N92.6 Please see report under imaging tab. Marcie Shields MD May 19, 2024 12:34 PM documented in this encounterRiverside Methodist Hospital02-05-2025 NoteHNO ID: [id number] Author: BRENNAN HEAD APRN.BENDING PRESS OPERATOR Service: ? Author Type: Nurse Practitioner Type: Progress Notes Filed: 05/07/2024 11:12 Note Text: Impact Hammer Operator offered: Patient declines. Smita Nguyen is [...] L0 SAB0 IAB0 Ectopic0 Multiple0 Live Births0 Medical Officer History LMP: 03/22/2024 (Exact Date), Having periods Age at Menarche: Age at First : Age at Menopause: Medical Officer History Comments: Sexual Activity: Yes; Male Contraception: [...] or incontinence. 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 LOSS PREVENTION MANAGER: Negative for abnormal vaginal bleeding, abnormal vaginal [...] management Medical Decision Making Level: 3 - [facility] History of Present illness Narrative* Brennan Head APRN.CNP - 05/07/2024 10:36 AM EST Impact Hammer Operator offered: Patient declines. Smita Nguyen is [...] L0 SAB0 IAB0 Ectopic0 Multiple0 Live Births0 Medical Officer History LMP: 03/22/2024 (Exact Date), Having periods Age at Menarche: Age at First : Age at Menopause: Medical Officer History Comments: Sexual Activity: Yes; Male Contraception: [...] or incontinence. 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 LOSS PREVENTION MANAGER: Negative for abnormal vaginal bleeding, abnormal vaginal [...] Level: 3 - Low documented in this encounterRiverside Methodist Hospital12-27-2024 NoteHNO ID: [id number] Author: CAMELIA HERRERA APRN.CNM Service: ? Author Type: Consulting Application Engineer Type: Progress Notes Filed: 03/28/2024 15:16 Note Text: Smita Nguyen is a 28 year old female who presents for problem visit HPI: Presents today with complaint of vaginal discharge, odor, and concerns she has another BV infection. Denies any other complaint. OB History T0 L0 SAB0 IAB0 Ectopic0 Multiple0 Live Births0 Medical Officer History LMP: 03/22/2024 (Exact Date), Having periods Age at Menarche: Age at First : Age at Menopause: Medical Officer History Comments: Sexual Activity: Yes; Male Contraception: [...] discussed with the Patient or Patient's Authorized Switch Repairer. As applicable, any other physician, advance practice provider, medical student, or other health professional student that will be observing or involved in the sensitive examination for educational or training purposes was discussed with the Patient or Authorized Switch Repairer. The Patient or Authorized Switch Repairer has agreed to proceed with the sensitive examination. (Sensitive examination includes inspection and/or palpation of the breasts, pelvis, prostate and anorectal regions). EXAM: BP 110/74 Wt 172 lb (78.0kg) LMP 03/22/2024 GENERAL: pleasant, female in no apparent distress HEENT: Normocephalic and atraumatic NECK: Supple and full range of motion PELVIC: external genitalia normal, normal Bartholin's glands, urethra, Busby's glands, no vulvar lesions, no cervical lesions, [...] MYRA/TRICHOMONAS NAAT BACTERIAL VAGINOSIS NAAT Camelia Herrera APRN.[facility]12-27-2024 History of Present illness Narrative* Camelia Herrera APRN.[facility] - 03/28/2024 9:32 AM EST Smita Nguyen is a 28 year old female who presents for problem visit HPI: Presents today with complaint of vaginal discharge, odor, and concerns she has another BV infection. Denies any other complaint. OB History T0 L0 SAB0 IAB0 Ectopic0 Multiple0 Live Births0 Medical Officer History LMP: 03/22/2024 (Exact Date), Having periods Age at Menarche: Age at First : Age at Menopause: Medical Officer History Comments: Sexual Activity: Yes; Male Contraception: [...] discussed with the Patient or Patient's Authorized Switch Repairer. As applicable, any other physician, advance practice provider, medical student, or other health professional student that will be observing or involved in the sensitive examination for educational or training purposes was discussed with the Patient or Authorized Switch Repairer. The Patient or Authorized Switch Repairer has agreed to proceed with the sensitive examination. (Sensitive examination includes inspection and/or palpation of the breasts, pelvis, prostate and anorectal regions). EXAM: BP 110/74 Wt 172 lb (78.0kg) LMP 03/22/2024 GENERAL: pleasant, female in no apparent distress HEENT: Normocephalic and atraumatic NECK: Supple and full range of motion PELVIC: external genitalia normal, normal Bartholin's glands, urethra, Busby's glands, no vulvar lesions, no cervical lesions, [...] Orders: MYRA/TRICHOMONAS NAAT BACTERIAL VAGINOSIS NAAT Camelia Herrera, EDITORIAL WRITER.CNM documented in this encounterRiverside [facility] Hospital12-10-2024 Telephone encounter Note * Telephone Encounter - Pamela Cooper RN - 03/11/2024 4:26 PM EST Last OV 02/04/24. Requested Prescriptions Pending Prescriptions Disp Refills progesterone micronized (PROMETRIUM) 100 mg capsule 90 capsule 11 Sig: Take 3 capsules by mouth once daily. Used for mood. Progesterone - Compound Pamela Cooper RN [facility]12-10-2024 Miscellaneous Notes* Telephone Encounter - Pamela Cooper RN - 03/11/2024 4:26 PM EST Last OV 02/04/24. Requested Prescriptions Pending Prescriptions Disp Refills progesterone micronized (PROMETRIUM) 100 mg capsule 90 capsule 11 Sig: Take 3 capsules by mouth once daily. Used for mood. Progesterone - Compound Pamela Cooper RN documented in this encounterRiverside Methodist Hospital12-05-2024 Instructions* Patient Instructions* Laurie Serra APRN.BENDING PRESS OPERATOR - 03/06/2024 8:55 AM EST TREATMENT PLAN: [...] --call the National Suicide Prevention Lifeline at 346 (420-475-5097) --text the Crisis Text Line (text HOME to 284498) --call 181 and let them know you are having a mental health crisis or go to your nearest Emergency Room for stabilization. --You can also call Mobile Crisis at [phone]. -- You may call the department appointment line at [phone] to schedule your appointment. -- Please call my nurse at [phone] or send me a message in [employer] with any questions or concerns between appointments. documented in this encounterRiverside Methodist Hospital12-05-2024 History of Present illness Narrative* Laurie Serra APRN.CNP - 03/06/2024 8:35 AM EST Images from the original note were not [...] accepted the risk verbally prior to proceeding wi th encounter. I have communicated my name and active licensure. The patient's identity and physicallocation were verified at the time of this visit. Either the patient or their legal uniforms sales representative has been informed of the [...] the next appointment. Today Smita shares that "I have been good". There are still emotional days due to [...] organized. Did have a meeting with her foam cutting supervisor to discuss some of her concerns. Has [...] 2024 TIME: 8:35 AM documented in this encounterRiverside Methodist Hospital12-05-2024 NoteHNO ID: [id number] Author: LAURIE SERRA APRN.CNP Service: ? Author [...] visit. Either the patient or their legal uniforms sales representative has been informed of the [...] the next appointment. Today Smita shares that "I have been good". There are still emotional days due to [...] organized. Did have a meeting with her foam cutting supervisor to discuss some of her concerns. Has [...] jerry, phonetics, and sy (more content not included)...[facility] 02-04-2024 History of Present illness Narrative* Camelia Herrera APRN.LANETTE - 02/04/2024 2:34 PM EST Impact Hammer Operator offered: Patient declines. Smita is a 28 year old who presents for an annual gynecologic exam. Attempting for the last 7 months. Did not attempt in December due to stress and needed abreak. Stopped using OPK kits but did show LH surge when she was using them, notices mucous change during ovulation. [place] every other day when she is trying to conceive. [place] had semenanalysis and normal. Menses: cycles every 30 days and 3 days of flow. Contraception: none, attempting for the last 7 months. HPV vaccine: No Last Pap: 06/16/2020 normal HPV: N/A History of abnormal pap: No Last mammogram: never Sexually active: Yes Pain with intercourse: No Postcoital bleeding: No Exercise: 4-6 times a week doing [place] [facility] History T0 L0 SAB0 IAB0 Ectopic0 Multiple0 Live Births0 Medical Officer History LMP: 01/15/2024 (Exact Date), Having periods Age at Menarche: Age at First : Age at Menopause: Medical Officer History Comments: Sexual Activity: Yes; Male Contraception: [...] discussed with the Patient or Patient's Authorized Switch Repairer. As applicable, any other physician, advance practice provider, medical student, or other health professional student that will be observing or involved in the sensitive examination for educational or training purposes was discussed with the Patient or Authorized Switch Repairer. The Patient or Authorized Switch Repairer has agreed to proceed with the sensitive examination. (Sensitive examination includes inspection and/or palpation of the breasts, pelvis, prostate and anorectal regions). EXAM: BP 114/68 Ht 5' 6" (1.68m) Wt 171 lb (77.6kg) LMP 01/15/2024 [...] external genitalia normal, normal Bartholin's glands, urethra, Busby's glands, no vulvar lesions, no cervical lesions, [...] needed Camelia Herrera APRN.CNM documented in this encounterR[facility]10-30-[facility]24 Instructions* Patient Instructions* Laurie Serra APRN.BENDING PRESS OPERATOR - 01/30/2024 10:22 PM EDT Anastacio Grullon, It was good to talk with you today. Below is a summary of the plan that we discussed during your appointment for reference. Of course, if you have any questions or concerns do not hesitate to reach out to me via a message or call. Philip, Laurie Serra APRN.CNP PLAN AND FOLLOW UP: TREATMENT PLAN: [...] the National Suicide Prevention Lifeline at 988 (547-698-3413) --text the Crisis Text Line (text HOME to 830783) --call 911 and let them know you are having a mental health crisis or go to your nearest Emergency Room for stabilization. --You can also call Mobile Crisis at [phone]. Next appointment: March 06 at 8:30 am virtual -- You may call the department appointment line at [phone] to schedule your appointment. -- Please call my nurse at [phone] or send me a message in [employer] with any questions or concerns between appointments. documented in this encounterRiverside [facility] Hospital10-25-2024 History of Present illness Narrative* Laurie Serra APRN.CNP - 01/25/2024 1:57 PM EDT Images from the original note were not [...] accepted the risk verbally prior to proceeding wi th encounter. I have communicated my name and active licensure. The patient's identity and physicallocation were verified at the time of this visit. Either the patient or their legal uniforms sales representative has been informed of the [...] she was out playing with her dog. "There has definitely been an improvement". What's triggering her anxiety right now is that she is trying to conceive and struggling with it. When she got her period in December, it was really hard for her. "I could not be around others with kids, then I am crying, and being mean". Patient and are going to start couple's therapy. Trying to conceive as strained their relationship. Physically, things have been good for them and lab work has been normal. Has seen her physical therapy nurse. Has not started the recommended supplements. Reviewed that list of recommended supplements and encouraged patient to start them. Asked about continuing her compounded progesterone. Encouraged that she reach out to her Consulting Application Engineer Yolanda to ask about that. Does still [...] for her. Work has been more stressful. "I am not as organized as I would like to be". Discussed trying a decrease in Lexapro to [...] PSYCHOTHERAPY CODE : No SIGNATURE: Laurie Serra APRN.DAVY PATIENT NAME: Smita Nguyen DATE: January 25, 2024 TIME: 1:57 PM documented in this encounterRiverside [facility] Hospital07-30-2024 Instructions* Patient Instructions* Camelia Herrera APRN.CNM - 10/30/2023 10:13 AM EDT Day 21 progesterone (11/07/23) Day 3 of next cycle get estradiol and FSH Other labs: - WHIIVF ANTI MULLERIAN HORMONE - RUBELLA IGG ANTIBODY - VARICELLA ZOSTER IGG - HEMOGLOBIN A1C - THYROID STIMULATING HORMONE If you desire carrier screening, please feel free to contact company for pricing and let me know. [facility] place the order. [email or web address]-[email or web address]/ If you ever desire referral to infertility please do not hesitate to ask. Can try these supplementsand see what happens in the next 3 months Supplements: 1) Berberine 400 mg three times daily for PCOS 2) Inositol (Edwin-inositol and N-lvvqy-kgodarat 40:1 ratio)I recommend using a combination product containing edwin-inositol and k-sbccq-vixqiiqw, up to 4 grams per day, for maximum benefit. Can add Iniosotil 2,000mg that you have https://[employer]/products/pco-gsgxw-zmlrexlr-40-1 3) Vitex https://[employer]/products/uiboz-lysfgv-axbt-glez-capsule 4) Vitamin Urology for semen analysis documented in this encounterRiverside [facility] Hospital07-30-2024 History of Present illness Narrative* Camelia Herrera APRN.CNM - 10/30/2023 9:56 AM EDT Smita Nguyen is a 28 year old [...] flow. Using OPK and showing LH surge. [place] every day to every other day after last day of menses. Making sure to having intercourse near and on day 14 at ovulation. Notices increased discharge at time of ovulation. No history of STDs or pelvic surgery. [place], together for 5 year. Was using condoms or withdrawal method prior to trying to conceive. OB History T0 L0 SAB0 IAB0 Ectopic0 Multiple0 Live Births0 Medical Officer History LMP: 10/17/2023 (Exact Date), Having periods Age at Menarche: Age at First : Age at Menopause: Medical Officer History Comments: Sexual Activity: Yes; Male Contraception: [...] 10 mg by mouth daily at bedtime. 567-jlrf-ulwha-omega3 (ONE-A-DAY -1) 27 mg iron- 800 mcg-235 [...] needed. Offered carrier screening. Reviewed need for evaluationif not within 12 months. -Reviewed supplements to help with fertility Vitex, inositol, and berberine - to get semen analysis with urology -Follow up in 2 months if no conception. -Referral to infertility at any time Camelia Herrera APRN.CNM documented in this encounterRiverside [facility] Hospital07-18-2024 History of Present illness Narrative* Laurie Serra APRN.CNP - 10/18/2023 8:58 AM EDT Images from the original note were not [...] accepted the risk verbally prior to proceeding wi th encounter. I have communicated my name and active licensure. The patient's identity and physicallocation were verified at the time of this visit. Either the patient or their legal uniforms sales representative has been informed of the [...] with OCD symptoms. Today Smita shares that "I'm good." Has had some ups and downs with intrusive thoughts and anxiety, but overall feels improved. Noticed that things were worse during the week before her period. Sheis leaving for vacation tomorrow. Reports testing positive [...] as she is trying to conceive. Has beenTTC for 5 months. Was advised to try for 6 months before making an appointment to talk about options. Was previously seeing psychologist weekly, currently seeing her every 2 weeks. Goes to parents house one night a week when her is in [place] for work. Cannot remember the last time that she stayed by herself overnight. As anxiety improves, patient amenable to trying tostay alone overnight eventually. Interval Progress: Slightly improved [...] Take 2 tablets by mouth once daily. 941-ehgp-vfeto-omega3 (ONE-A-DAY -1) 27 mg iron- 800 mcg-235 [...] All prescriptions have been APPROPRIATELY filled. No suspiciousactivity was identified. 10/18/2023 by Laurie Serra APRN.BENDING PRESS OPERATOR DIAGNOSIS: Other obsessive-compulsive disorders (primary encounter diagnosis) Fredo (generalized anxiety disorder) Recurrent major depressive disorder, in partial remission (hcc) Encounter for long-term (current) use of [...] which included preparing to see the patient, knql-ye-fkyg patient care, completing clinical documentation, and counseling and educating the patient/family/caregiver, ordering medications/labs. ADD ON PSYCHOTHERAPY CODE : No SIGNATURE: Laurie Serra APRN.CNP PATIENT NAME: Smita Nguyen DATE: October 18, 2023 TIME: 8:58 AM documented in this encounterRiverside [facility] Hospital05-17-2024 Telephone encounter Note * Telephone Encounter - Mora Villarreal RN - 08/17/2023 1:37 PM EDT Patient notified. She thinks menses started today. Will call with further concerns. Mora Villarreal RN [facility] Miscellaneous Notes* Telephone Encounter - Mora Villarreal RN - 08/17/2023 1:37 PM EDT Patient notified. She thinks menses started today. Will call with further concerns. Mora Villarreal RN * Telephone Encounter - Camelia Herrera APRN.CNM - 08/17/2023 12:12 PM EDT Can order serum hCG if negative recommend follow up appt virtual. Camelia Herrera APRN.CNM * Telephone Encounter - Mora Villarreal RN - 08/16/2023 11:09 AM EDT Patient calling because she is late for [...] tomorrow. Mora Villarreal RN documented in this encounterRiverside [facility] Hospital05-17-2024 Telephone encounter Note * Telephone Encounter - Camelia Herrera APRN.CNM - 08/17/2023 12:12 PM EDT Can order serum hCG if negative recommend follow up appt virtual. Camelia Herrera APRN.CNM [facility] Telephone encounter Note* Telephone Encounter - Mora Villarreal RN - 08/16/2023 11:09 AM EDT Patient calling because she is late for [...] back in office tomorrow. Mora Villarreal RN [facility]04-17-[facility] History of Present illness Narrative* Laurie Serra APRN.BENDING PRESS OPERATOR - 07/18/2023 2:43 PM EDT Images from the original note were not [...] accepted the risk verbally prior to proceeding wi th encounter. I have communicated my name and active licensure. The patient's identity and physicallocation were verified at the time of this visit. Either the patient or their legal uniforms sales representative has been informed of the [...] from the Lexapro but she is not interestedin starting Metformin currently. 6. Continue individual psychotherapy. 7. Offered the patient to engage in IOP if she continues to struggle with increase in intrusive thoughts and low moods. Today Smita shares that she has been feeling better with the improved weather. Feeling better compared to last visit. "You kicked me in the right places with your comments last time". She has been getting more exercise and [...] infection. Reports premenstrual worsening of her anxiety. [place] that anxiety began in 2011 after she [...] on File Prior to Visit Medication Sig 141-orpi-fibxq-omega3 (ONE-A-DAY -1) 27 mg iron- 800 mcg-235 [...] REVIEWED: Psychiatric scales, Electronic medical record, and [facility] PDMP website checked and validated. All prescriptions have been APPROPRIATELY filled. No suspiciousactivity was identified. 07/18/2023 by Laurie Serra APRN.CNP [...] the National Suicide Prevention Lifeline at 988 (405.453.6259) --text the Crisis Text Line (text HOME to 285898) --call 911 and let them know you are having a mental health crisis or go to your nearest Emergency Room for stabilization. --You can also call Mobile Crisis at [phone]. MEDICATION CHANGES: Current medication regimen unchanged. See [...] which included preparing to see the patient, pdfd-sc-dtzr patient care, completing clinical documentation, and counseling and educating the patient/family/caregiver, ordering medications/labs. ADD ON PSYCHOTHERAPY CODE : No SIGNATURE: Laurie Serra APRN.BENDING PRESS OPERATOR PATIENT NAME: Smita Nguyen DATE: July 18, 2023 TIME: 2:43 PM documented in this encounterRiverside Methodist Hospital03-20-2024 History of Present illness Narrative* Camelia Herrera APRN.CNM - 06/20/2023 2:32 PM EDT Smita Nguyen is a 28 year old female who presents for problem visit HPI: Trying to conceive in last 3 months. Using OPK and showing LH surge. [place] every day to every other day after last day of menses. Making sure to having intercourse near and on day 14 at ovulation. Notices increased discharge at time of ovulation. LMP 06/09/23, a few days earlier than normal, lasted for 4 days. Cycles usually 27 days apart at thistime. No history of STDs or pelvic surgery. [place], together for 5 year. Was using condoms or withdrawal method prior to trying to conceive. Micronutrient testing with [facility] and looking at possible tick bite that caused increased anxiety. Taking hydr\\oxine and ativan for anxiety. OB History T0 L0 SAB0 IAB0 Ectopic0 Multiple0 Live Births0 Medical Officer History LMP: 06/09/2023 (Exact Date), Having periods Age at Menarche: Age at First : Age at Menopause: Medical Officer History Comments: Sexual Activity: Yes; Male Contraception: Condom No past medical history on file. No past surgical history on file. No family history on file. Social History Tobacco Use Smoking status: Never Smokeless tobacco: Never Vaping Use Vaping Use: Never used Substance Use Topics Alcohol use: Yes Comment: rarely Drug use: Never Current Outpatient Medications Medication Sig 890-eiio-sycmx-omega3 (ONE-A-DAY -1) 27 mg iron- 800 mcg-235 [...] cap Take by mouth as directed. PNV 854-axiw-vmairw-dha 90 mg iron- 1 mg-200 mg cap [...] chemicals. Camelia Herrera APRN.CNM documented in this encounterRiverside [facility] Hospital03-19-2024 History of Present illness Narrative* Laurie Serra APRN.CNP - 06/19/2023 2:07 PM EDT FOLLOW UP - PSYCHIATRIC PROGRESS NOTE Visit [...] visit. Either the patient or their legal uniforms sales representative has been informed of the [...] as leaves that day to work in [place]. They are staying at their new place [...] then I will be in a better place". Risks and benefits of the medication, including [...] population = 50. Five points is a clinicallymeaningful difference.) Physical T-Score 47.7 44.9 44.9 Mental [...] cap Take by mouth as directed. PNV 168-rlds-jlanbc-dha 90 mg iron- 1 mg-200 mg cap [...] Psychiatric scales, Labs, Electronic medical record, and [employer] notes DIAGNOSIS: OCD Generalized Anxiety Disorder MDD, [...] from the Lexapro but she is not interestedin starting Metformin currently. 6. Continue individual psychotherapy. [...] which included preparing to see the patient, pdtt-sz-bvst patient care, completing clinical documentation, obtaining and/or reviewing separately obtained history, counseling and educating the patient/family/caregiver, ordering medications, galina ts, or procedures, communicating with other HCPs (not separately reported), independently interpreting results (not separately reported), and communicating results to the patient/family/caregiver. ADD ON PSYCHOTHERAPY CODE : No SIGNATURE: Laurie Serra APRN.CNP PATIENT NAME: Smita Nguyen DATE: June 19, 2023 TIME: 2:07 PM documented in this encounterRiverside [facility] Hospital11-27-2023 Telephone encounter Note * Telephone Encounter - Laurie Serra APRN.CNP - 02/26/2023 12:56 PM EST Collaborated with patient's psychologist Maia Lockett regarding patient's current presentation, medication management plan and coping strategies. [facility] Work Phone: 1(281) 799-968011-27-2023 Miscellaneous Notes* Telephone Encounter - Laurie Serra APRN.CNP - 02/26/2023 12:56 PM EST Collaborated with patient's psychologist Maia Lockett regarding patient's current presentation, medication management plan and coping strategies. * Telephone Encounter - Lise Villar - 02/08/2023 12:55 PM EST Patient verified by name and . Maia Levy, her Psychologist is calling, She would like to consult with Laurie about this patient. She can be reached at [phone]. documented in this encounterRiverside [facility] Hospital11-27-2023 History of Present illness Narrative* Laurie Serra APRN.DAVY - 02/26/2023 9:01 AM EST FOLLOW UP - PSYCHIATRIC PROGRESS NOTE Visit [...] visit. Either the patient or their legal uniforms sales representative has been informed of the [...] individual psychotherapy weekly. Today Smita shares that "I am okay". She has started staying at her new [...] work. Sometimes intrusive thoughts are related to school.Propranolol and Ativan help her manage these. She [...] population = 50. Five points is a clinicallymeaningful difference.) 06/16/2022 11/17/2022 02/24/2023 Physical T-Score 50.8 [...] cap Take by mouth as directed. PNV 020-pezj-yintdw-dha 90 mg iron- 1 mg-200 mg cap [...] which included preparing to see the patient, kzps-wk-ethr patient care, completing clinical documentation, obtaining and/or reviewing separately obtained history, counseling and educating the patient/family/caregiver, ordering medications, galina ts, or procedures, communicating with other HCPs (not separately reported), independently interpreting results (not separately reported), and communicating results to the patient/family/caregiver. ADD ON PSYCHOTHERAPY CODE : No SIGNATURE: Laurie Serra APRN.CNP PATIENT NAME: Smita Nguyen DATE: February 26, 2023 TIME: 9:01 AM documented in this encounterRiverside Methodist Hospital11-17-2023 Miscellaneous Notes* Telephone Encounter - Mora Villarreal RN - 02/16/2023 9:45 AM EST Last annual with [facility] 01/29/23. Requested Prescriptions Pending Prescriptions Disp Refills progesterone micronized (PROMETRIUM) 100 mg capsule 90 capsule 11 Sig: Take 3 capsules by mouth once daily. Used for mood. Progesterone - Compound Mora Villarreal RN documented in this encounterRiverside Methodist Hospital11-09-2023 Telephone encounter Note * Telephone Encounter - Lise Villar - 02/08/2023 12:55 PM EST Patient verified by name and . Maia Lockett, her Psychologist is calling, She would like to consult with Laurie about this patient. She can be reached at [phone]. [facility]11-06-[facility] History of Present illness Narrative* Laurie Serra APRN.CNP - 02/05/2023 10:02 AM EST FOLLOW UP - PSYCHIATRIC PROGRESS NOTE Visit [...] visit. Either the patient or their legal uniforms sales representative has been informed of the [...] Her parents are going to travel to [place] for 1 week but her will be in town and not traveling for work. She has experienced some panic attacks out of the blue with some intrusive thoughts. She feels thatthis has triggered more anxiety. She has an [...] population = 50. Five points is a clinicallymeaningful difference.) 06/24/2019 06/16/2022 11/17/2022 Physical T-Score 54.1 [...] cap Take by mouth as directed. PNV 079-lpha-qgkqah-dha 90 mg iron- 1 mg-200 mg cap [...] REVIEWED: Psychiatric scales, Electronic medical record, and Train Brakeman notes DIAGNOSIS: PRIMARY: OCD Secondary : Generalized [...] which included preparing to see the patient, qtqs-oq-vwzk patient care, completing clinical documentation, obtaining and/or reviewing separately obtained history, counseling and educating the patient/family/caregiver, ordering medications, galina ts, or procedures, independently interpreting results (not separately reported), and communicating results to the patient/family/caregiver. ADD ON PSYCHOTHERAPY CODE : No SIGNATURE: Laurie Serra APRN.CNP PATIENT NAME: Smita Nguyen DATE: February 05, 2023 TIME: 10:02 AM documented in this encounterRiverside Methodist Hospital10-30-2023 History of Present illness Narrative* Camelia Herrera APRN.CNM - 01/29/2023 2:46 PM EDT Smita is a 27 year old who presents for an annual gynecologic exam without complaints. Recent episode in September with mental health and has decided to not conceive at this time. Coping ok with this but just disappointed. Continues to work with Laurie Rousseau NP and psychology at [facility]. Getting ready to start EMDR. Menses: cycles [...] L0 SAB0 IAB0 Ectopic0 Multiple0 Live Births0 Medical Officer History LMP: 01/26/2023 (Exact Date), Having periods Age at Menarche: Age at First : Age at Menopause: Medical Officer History Comments: Sexual Activity: Yes; Male Contraception: [...] medication updated:Yes EXAM: BP 108/64 Ht 5' 6" (1.68m) Wt 155 lb 12.8 oz (70.7kg) [...] external genitalia normal, normal Bartholin's glands, urethra, Busby's glands, no vulvar lesions, no cervical lesions, [...] needed Camelia Herrera APRN.CNM documented in this encounterRiverside Methodist Hospital10-23-2023 History of Present illness Narrative* Laurie Serra APRN.CNP - 01/22/2023 9:31 AM EDT FOLLOW UP - PSYCHIATRIC PROGRESS NOTE Visit [...] visit. Either the patient or their legal uniforms sales representative has been informed of the [...] able to go and spend time in [place] with and friends. She has been able to do things that contributedto anxiety. She is proud that she attempted [...] she is going into work. Worried about goingin without the medication. Will work on managing [...] population = 50. Five points is a clinicallymeaningful difference.) 06/24/2019 06/16/2022 11/17/2022 Physical T-Score 54.1 [...] cap Take by mouth as directed. PNV 113-xpbn-pufqby-dha 90 mg iron- 1 mg-200 mg cap [...] related to work. Patient has been able toreduce dose and has been using Propranolol first [...] which included preparing to see the patient, dsot-bd-epfy patient care, completing clinical documentation, obtaining and/or reviewing separately obtained history, counseling and educating the patient/family/caregiver, ordering medications, galina ts, or procedures, and communicating results to the patient/family/caregiver. ADD ON PSYCHOTHERAPY CODE : No SIGNATURE: Laurie Serra APRN.CNP PATIENT NAME: Smita Nguyen DATE: January 22, 2023 TIME: 9:32 AM documented in this encounterRiverside Methodist Hospital10-17-2023 Miscellaneous Notes* Telephone Encounter - Nanette Evans RN - 01/16/2023 9:53 AM EDT Called Rasheeda Chang, hvac r tech and given Camelia Herrera's directive * Telephone Encounter - Camelia Herrera APRN.CNM - 01/15/2023 6:51 PM EDT Pharmacy can verify what patient prefers, I am ok to keep sublingual but can discuss cost with patient. Camelia Herrera APRN.CNM * Telephone Encounter - Alexandrea Danielle LPN - 01/15/2023 2:02 PM EDT [facility] pharmacy calling and wanted to know on the progestrone, she had been getting sublingual compound. Do you want to continue that or change to capsule? Please advise. Alexandrea Danielle LPN documented in this encounterRiverside Methodist Hospital10-16-2023 Miscellaneous Notes* Telephone Encounter - Harish Magallanes RN - 01/15/2023 10:13 AM EDT Patient scheduled for annual exam with [facility] 01/29. Requested Prescriptions Pending Prescriptions Disp Refills progesterone micronized (PROMETRIUM) 100 mg capsule 90 capsule 0 Sig: Take 3 capsules by mouth once daily. Used for mood. Progesterone - Compound HARISH MAGALLANES RN documented in this encounterRiverside Methodist Hospital10-10-2023 History of Present illness Narrative* Laurie Serra, EDITORIAL WRITER.BENDING PRESS OPERATOR - 01/09/2023 4:36 PM EDT Images from the original note were not [...] report was reviewed and found to be appropriatewithout any signs of misuse or diversion. CC: [...] tablet of Ativan. This week going to taoist was better than last week. She continues to work.Adjusted better to 's work schedule. She has [...] which included preparing to see the patient, qhqx-ro-ypyn patient care, completing clinical documentation, and counseling and educating the patient/family/caregiver, ordering medications/labs. Laurie Serra APRN.CNP January 09, 2023 4:36 PM This note was partially generated using [employer] voice recognition system. Note was reviewed for accuracy. There may be minor misspellings or grammar miscues with [employer] voice recognition. documented in this encounterRiverside Methodist Hospital10-03-2023 History of Present illness Narrative* Laurie Serra APRN.CNP - 01/02/2023 3:11 PM EDT Images from the original note were not [...] report was reviewed and found to be appropriatewithout any signs of misuse or diversion. CC: Follow up for psychiatric medication management. HPI: Smita Nguyen is a 27 year old Female with a history of FREDO, OCD and MDD presenting today forfollow-up. Date of last visit: 12/26/2022 Plan from last visit: Discontinue Xanax due to lack of efficacy. Patient will utilize Ativan instead to manage overwhelming intrusive thoughts. Utilize propranolol to manage physical symptoms of anxiety and panic as well as intrusive thoughts.Patient is aware to utilize propranolol first prior to Ativan. Continue Lexapro at the same dose. Consider DBT based IOP for further support. Patient has an intake for individual psychotherapy next week. Follow-up next Sunday. Today Smita shares that she has noticed the Ativan is supporting her intrusive thoughts and anxiety. She was able to work and was also able to go to the [place] fest. Sunday she went to the fall fest and she did not take any PRN medication. She did have intermittent anxiety but it was manageable. She is not having new intrusive thoughts but she does feel anxious thinking about the ones she had in the past. The propranolol is helpful in managing some of the physical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 alcohol or drug abuse patient.[facility] HospitalIn the event this information is protected by the Federal Confidentiality of Alcohol and Drug Abuse Patient Records regulations: The Federal rules restrict any use of the information to criminally investigate or prosecute any alcohol or drug abuse patient.[facility]In the event this information is protected by the Federal Confidentiality of Alcohol and Drug Abuse Patient Records regulations: The Federal rules restrict any use of the information to criminally investigate or prosecute any alcohol or drug abuse patient.[facility] HospitalIn the event this information is protected by the Federal Confidentiality of Alcohol and Drug Abuse Patient Records regulations: The Federal rules restrict any use of the information to criminally investigate or prosecute any alcohol or drug abuse patient.[facility] HospitalIn the event this information is protected by the Federal Confidentiality of Alcohol and Drug Abuse Patient Records regulations: The Federal rules restrict any use of the information to criminally investigate or prosecute any alcohol or drug abuse patient.[facility] HospitalIn the event this information is protected by the Federal Confidentiality of Alcohol and Drug Abuse Patient Records regulations: The Federal rules restrict any use of the information to criminally investigate or prosecute any alcohol or drug abuse patient.[facility] HospitalIn the event this information is protected by the Federal Confidentiality of Alcohol and Drug Abuse Patient Records regulations: The Federal rules restrict any use of the information to criminally investigate or prosecute any alcohol or drug abuse patient.[facility] HospitalIn the event this information is protected by the Federal Confidentiality of Alcohol and Drug Abuse Patient Records regulations: The Federal rules restrict any use of the information to criminally investigate or prosecute any alcohol or drug abuse patient.[facility] HospitalIn the event this information is protected by the Federal Confidentiality of Alcohol and Drug Abuse Patient Records regulations: The Federal rules restrict any use of the information to criminally investigate or prosecute any alcohol or drug abuse patient.[facility] HospitalIn the event this information is protected by the Federal Confidentiality of Alcohol and Drug Abuse Patient Records regulations: The Federal rules restrict any use of the information to criminally investigate or prosecute any alcohol or drug abuse patient.[facility] HospitalIn the event this information is protected by the Federal Confidentiality of Alcohol and Drug Abuse Patient Records regulations: The Federal rules restrict any use of the information to criminally investigate or prosecute any alcohol or drug abuse patient.[facility] HospitalIn the event this information is protected by the Federal Confidentiality of Alcohol and Drug Abuse Patient Records regulations: The Federal rules restrict any use of the information to criminally investigate or prosecute any alcohol or drug abuse patient.[facility] HospitalIn the event this information is protected by the Federal Confidentiality of Alcohol and Drug Abuse Patient Records regulations: The Federal rules restrict any use of the information to criminally investigate or prosecute any alcohol or drug abuse patient.[facility] HospitalIn the event this information is protected by the Federal Confidentiality of Alcohol and Drug Abuse Patient Records regulations: The Federal rules restrict any use of the information to criminally investigate or prosecute any alcohol or drug abuse patient.[facility] HospitalIn the event this information is protected by the Federal Confidentiality of Alcohol and Drug Abuse Patient Records regulations: The Federal rules restrict any use of the information to criminally investigate or prosecute any alcohol or drug abuse patient.[facility] HospitalIn the event this information is protected by the Federal Confidentiality of Alcohol and Drug Abuse Patient Records regulations: The Federal rules restrict any use of the information to criminally investigate or prosecute any alcohol or drug abuse patient.[facility] HospitalIn the event this information is protected by the Federal Confidentiality of Alcohol and Drug Abuse Patient Records regulations: The Federal rules restrict any use of the information to criminally investigate or prosecute any alcohol or drug abuse patient.[facility] HospitalIn the event this information is protected by the Federal Confidentiality of Alcohol and Drug Abuse Patient Records regulations: The Federal rules restrict any use of the information to criminally investigate or prosecute any alcohol or drug abuse patient.[facility] HospitalIn the event this information is protected by the Federal Confidentiality of Alcohol and Drug Abuse Patient Records regulations: The Federal rules restrict any use of the information to criminally investigate or prosecute any alcohol or drug abuse patient.[facility] HospitalIn the event this information is protected by the Federal Confidentiality of Alcohol and Drug Abuse Patient Records regulations: The Federal rules restrict any use of the information to criminally investigate or prosecute any alcohol or drug abuse patient.[facility] HospitalIn the event this information is protected by the Federal Confidentiality of Alcohol and Drug Abuse Patient Records regulations: The Federal rules restrict any use of the information to criminally investigate or prosecute any alcohol or drug abuse patient.[facility] HospitalIn the event this information is protected by the Federal Confidentiality of Alcohol and Drug Abuse Patient Records regulations: The Federal rules restrict any use of the information to criminally investigate or prosecute any alcohol or drug abuse patient.[facility] HospitalIn the event this information is protected by the Federal Confidentiality of Alcohol and Drug Abuse Patient Records regulations: The Federal rules restrict any use of the information to criminally investigate or prosecute any alcohol or drug abuse patient.[facility] HospitalIn the event this information is protected by the Federal Confidentiality of Alcohol and Drug Abuse Patient Records regulations: The Federal rules restrict any use of the information to criminally investigate or prosecute any alcohol or drug abuse patient.[facility] HospitalIn the event this information is protected by the Federal Confidentiality of Alcohol and Drug Abuse Patient Records regulations: The Federal rules restrict any use of the information to criminally investigate or prosecute any alcohol or drug abuse patient.[facility] HospitalIn the event this information is protected by the Federal Confidentiality of Alcohol and Drug Abuse Patient Records regulations: The Federal rules restrict any use of the information to criminally investigate or prosecute any alcohol or drug abuse patient.[facility] HospitalIn the event this information is protected by the Federal Confidentiality of Alcohol and Drug Abuse Patient Records regulations: The Federal rules restrict any use of the information to criminally investigate or prosecute any alcohol or drug abuse patient.[facility] HospitalIn the event this information is protected by the Federal Confidentiality of Alcohol and Drug Abuse Patient Records regulations: The Federal rules restrict any use of the information to criminally investigate or prosecute any alcohol or drug abuse patient.[facility] HospitalIn the event this information is protected by the Federal Confidentiality of Alcohol and Drug Abuse Patient Records regulations: The Federal rules restrict any use of the information to criminally investigate or prosecute any alcohol or drug abuse patient.[facility] HospitalIn the event this information is protected by the Federal Confidentiality of Alcohol and Drug Abuse Patient Records regulations: The Federal rules restrict any use of the information to criminally investigate or prosecute any alcohol or drug abuse patient.[facility] HospitalIn the event this information is protected by the Federal Confidentiality of Alcohol and Drug Abuse Patient Records regulations: The Federal rules restrict any use of the information to criminally investigate or prosecute any alcohol or drug abuse patient.[facility] HospitalIn the event this information is protected by the Federal Confidentiality of Alcohol and Drug Abuse Patient Records regulations: The Federal rules restrict any use of the information to criminally investigate or prosecute any alcohol or drug abuse patient.[facility] HospitalIn the event this information is protected by the Federal Confidentiality of Alcohol and Drug Abuse Patient Records regulations: The Federal rules restrict any use of the information to criminally investigate or prosecute any alcohol or drug abuse patient.[facility] HospitalIn the event this information is protected by the Federal Confidentiality of Alcohol and Drug Abuse Patient Records regulations: The Federal rules restrict any use of the information to criminally investigate or prosecute any alcohol or drug abuse patient.[facility] HospitalIn the event this information is protected by the Federal Confidentiality of Alcohol and Drug Abuse Patient Records regulations: The Federal rules restrict any use of the information to criminally investigate or prosecute any alcohol or drug abuse patient.[facility] HospitalIn the event this information is protected by the Federal Confidentiality of Alcohol and Drug Abuse Patient Records regulations: The Federal rules restrict any use of the information to criminally investigate or prosecute any alcohol or drug abuse patient.[facility] HospitalIn the event this information is protected by the Federal Confidentiality of Alcohol and Drug Abuse Patient Records regulations: The Federal rules restrict any use of the information to criminally investigate or prosecute any alcohol or drug abuse patient.[facility] HospitalIn the event this information is protected by the Federal Confidentiality of Alcohol and Drug Abuse Patient Records regulations: The Federal rules restrict any use of the information to criminally investigate or prosecute any alcohol or drug abuse patient.[facility] HospitalIn the event this information is protected by the Federal Confidentiality of Alcohol and Drug Abuse Patient Records regulations: The Federal rules restrict any use of the information to criminally investigate or prosecute any alcohol or drug abuse patient.[facility] HospitalIn the event this information is protected by the Federal Confidentiality of Alcohol and Drug Abuse Patient Records regulations: The Federal rules restrict any use of the information to criminally investigate or prosecute any alcohol or drug abuse patient.[facility] HospitalIn the event this information is protected by the Federal Confidentiality of Alcohol and Drug Abuse Patient Records regulations: The Federal rules restrict any use of the information to criminally investigate or prosecute any alcohol or drug abuse patient.[facility] HospitalIn the event this information is protected by the Federal Confidentiality of Alcohol and Drug Abuse Patient Records regulations: The Federal rules restrict any use of the information to criminally investigate or prosecute any alcohol or drug abuse patient.[facility] HospitalIn the event this information is protected by the Federal Confidentiality of Alcohol and Drug Abuse Patient Records regulations: The Federal rules restrict any use of the information to criminally investigate or prosecute any alcohol or drug abuse patient.[facility] HospitalIn the event this information is protected by the Federal Confidentiality of Alcohol and Drug Abuse Patient Records regulations: The Federal rules restrict any use of the information to criminally investigate or prosecute any alcohol or drug abuse patient.[facility] Care Teams (unrecognized sec tion and content) Blade Grinder Relationship Specialty Start Date End Date Pratima Ontiveros CNP [address] [place] [phone] PCP - General Family Medicine 12/30/18 Blade Grinder Relationship Specialty Start Date End Date Pratima Ontiveros CNP [address] [place] [phone] PCP - General Family Medicine 12/30/18 Blade Grinder Relationship Specialty Start Date End Date Pratima Ontiveros CNP [address] [place] [phone] (Work) PCP - General Family Medicine 12/30/18 Blade Grinder Relationship Specialty Start Date End Date Pratima Ontiveros CNP [address] [place] [phone] PCP - General Family Medicine 12/30/18 Blade Grinder Relationship Specialty Start Date End Date Pratima Ontiveros CNP [address] [place] [phone] (Work) PCP - General Family Medicine 12/30/18 Blade Grinder Relationship Specialty Start Date End Date Pratima Ontiveros CNP [address] [place] [phone] (Work) PCP - General Family Medicine 12/30/18 Blade Grinder Relationship Specialty Start Date End Date Pratima Ontiveros [address] [place] [phone] PCP - General Nurse Practitioner Family 11/19/22 Blade Grinder Relationship Specialty Start Date End Date Pratima Ontiveros CNP [address] [place] [phone] (Work) PCP - General Family Medicine 12/30/18 Blade Grinder Relationship Specialty Start Date End Date Pratima Ontivreos CNP [address] [place] [phone] PCP - General Family Medicine 12/30/18 Blade Grinder Relationship Specialty Start Date End Date Pratima Ontiveros CNP [address] [place] [address] PCP - General Family Medicine 12/30/18 Blade Grinder Relationship Specialty Start Date End Date Pratima Ontiveros CNP [address] [place] [phone] PCP - General Family Medicine 12/30/18 Blade Grinder Relationship Specialty Start Date End Date Pratima Ontiveros CNP [address] [place] [address] PCP - General Family Medicine 12/30/18 Blade Grinder Relationship Specialty Start Date End Date Pratima Ontiveros CNP [address] [place] [phone] PCP - General Family Medicine 12/30/18 Blade Grinder Relationship Specialty Start Date End Date Pratima Ontiveros CNP [address] [place] [address] PCP - General Family Medicine 12/30/18 Blade Grinder Relationship Specialty Start Date End Date Pratima Ontiveros CNP [address] [place] [phone] PCP - General Family Medicine 12/30/18 Blade Grinder Relationship Specialty Start Date End Date Pratima Ontiveros CNP [address] [place] [phone] PCP - General Family Medicine 12/30/18 Blade Grinder Relationship Specialty Start Date End Date Pratima Ontiveros CNP [address] [place] [phone] PCP - General Family Medicine 12/30/18 Blade Grinder Relationship Specialty Start Date End Date Pratima Ontiveros CNP [address] [place] [phone] PCP - General Family Medicine 12/30/18 Blade Grinder Relationship Specialty Start Date End Date Pratima Ontiveros CNP [address] [place] [phone] PCP - General Family Medicine 12/30/18 Blade Grinder Relationship Specialty Start Date End Date Pratima Ontiveros CNP [address] [place] [phone] PCP - General Family Medicine 12/30/18 Blade Grinder Relationship Specialty Start Date End Date Pratima Ontiveros CNP [address] [place] [phone] PCP - General Family Medicine 12/30/18 Blade Grinder Relationship Specialty Start Date End Date Pratima Ontiveros CNP [address] [place] [phone] PCP - General Family Medicine 12/30/18 Blade Grinder Relationship Specialty Start Date End Date Pratima Ontiveros CNP [address] [place] [phone] PCP - General Family Medicine 12/30/18 Blade Grinder Relationship Specialty Start Date End Date Pratima Ontiveros CNP [address] [place] [phone] PCP - General Family Medicine 12/30/18 Blade Grinder Relationship Specialty Start Date End Date Pratima Ontiveros CNP [address] [place] [phone] PCP - General Family Medicine 12/30/18 Blade Grinder Relationship Specialty Start Date End Date Pratima Ontiveros CNP [address] [place] [phone] PCP - General Family Medicine 12/30/18 Blade Grinder Relationship Specialty Start Date End Date Pratima Ontiveros CNP [address] [place], [place] [phone] PCP - General Family Medicine 12/30/18 Blade Grinder Relationship Specialty Start Date End Date Pratima Ontiveros CNP [address] [place] [phone] PCP - General Family Medicine 12/30/18 Blade Grinder Relationship Specialty Start Date End Date Pratima Ontiveros APRN.DAVY PCP - General Family Medicine 12/30/18 Blade Grinder Relationship Specialty Start Date End Date Pratima Ontiveros APRN.DAVY PCP - General Family Medicine 12/30/18 Blade Grinder Relationship Specialty Start Date End Date Pratima Ontiveros APRN.CNP PCP - General Family Medicine 12/30/18 Blade Grinder Relationship Specialty Start Date End Date WestonPratima, EDITORIAL WRITER.BENDING PRESS OPERATOR PCP - General Family Medicine 12/30/18 Blade Grinder Relationship Specialty Start Date End Date RaoullavellePratima, EDITORIAL WRITER.BENDING PRESS OPERATOR PCP - General Family Medicine 12/30/18 Blade Grinder Relationship Specialty Start Date End Date Pratima Ontiveros, EDITORIAL WRITER.BENDING PRESS OPERATOR PCP - General Family Medicine 12/30/18 Blade Grinder Relationship Specialty Start Date End Date Pratima Ontiveros, EDITORIAL WRITER.BENDING PRESS OPERATOR PCP - General Family Medicine 12/30/18 Blade Grinder Relationship Specialty Start Date End Date Pratima Ontiveros, EDITORIAL WRITER.BENDING PRESS OPERATOR PCP - General Family Medicine 12/30/18 Blade Grinder Relationship Specialty Start Date End Date Pratima Ontiveros, EDITORIAL WRITER.BENDING PRESS OPERATOR PCP - General Family Medicine 12/30/18 Blade Grinder Relationship Specialty Start Date End Date Pratima Ontiveros, EDITORIAL WRITER.BENDING PRESS OPERATOR PCP - General Family Medicine 12/30/18 Team Status: Active Member Role/Relationship Status Dates Evie Avila EXTRACTING MACHINE OPERATOR, EXTRACTING MACHINE OPERATOR-C Primary care physician Acti ve Team Status: Inactive Member Role/Relationship Status Dates Evie Avila EXTRACTING MACHINE OPERATOR, EXTRACTING MACHINE OPERATOR-C Primary care physician Acti ve Start: January 18, 2025 End: January 18, 2025 Camelia Herrera CNM Attending physician Active S tart: January 18, 2025 End: January 18, 2025 Camelia Herrera CNM Referring Provider Active St art: January 18, 2025 End: January 18, 2025 Team Status: Inactive Member Role/Relationship Status Dates Evie Avila NP, EXTRACTING MACHINE OPERATOR-C Primary care physician Julius lara Start: January 27, 2025 End: January 27, 2025 Hoda Hager CNM Attending physician Active Start: January 27, 2025 End: January 27, 2025 Hoda Hager CNM Referring Provider Active Start: January 27, 2025 End: January 27, 2025 Reason for Visit (unrecogniz ed section and content) Reason Comments DUB Reason Comments Medical Officer Exam Reason Onset Date Comments Refill Request [...] weeks Procedures VIDEO PSYC/PSYL EST Laurie Serra, EDITORIAL WRITER.BENDING PRESS OPERATOR [address] [place] [address] Laurie Serra, EDITORIAL WRITER.BENDING PRESS OPERATOR [address] [place] [address] Referral ID Status Reason Start Date Expiration Date V isits Requested Visits Authorized [id number] Pending Review 12/15/2022 03/15/2023 1 1 Reason Comments Follow Up OCD/FREDO/depression Specialty Diagnoses / Procedures Referred By Pooja mayo Referred To Contact Psychiatry / ADULT PSYCHIATRY Diagnoses follow up 2 months Procedures EST PSYC ADULT Laurie Serra, EDITORIAL WRITER.BENDING PRESS OPERATOR [address] [place] [address] Laurie Serra, EDITORIAL WRITER.BENDING PRESS OPERATOR [address] [place] [address] Referral ID Status Reason Start Date Expiration Date V isits Requested Visits Authorized [id number] Pending Review 01/09/2023 04/09/2023 1 1 Reason Onset Date Comments Refill Request 01/14/2023 Reason Comments Medication Problem Specialty Diagnoses / Procedures Referred By Contac t Referred To Contact Psychiatry / ADULT PSYCHIATRY Diagnoses follow up Procedures VIDEO PSYC/PSYL EST Laurie Serra, EDITORIAL WRITER.BENDING PRESS OPERATOR [address] [place] [address] Laurie Serra, EDITORIAL WRITER.BENDING PRESS OPERATOR [address] [place] [address] Referral ID Status Reason Start Date Expiration Date V isits Requested Visits Authorized [id number] Pending Review 01/22/2023 04/22/2023 1 1 Reason Comments Yearly Exam Reason Onset Date Comments Refill Request 02/15/2023 Reason Comments Discussion Reason Comments Consult Reason Comments Irregular Menstrual Cycle Reason Comments Discussion Trying to conceive Referral ID Status Reason Start Date Expiration Date V isits Requested Visits Authorized [id number] New Request 01/25/2024 04/24/2024 1 1 Reason Comments Well Woman Specialty Diagnoses / Procedures Referred By Contac t Referred To Contact Psychiatry / ADULT PSYCHIATRY Diagnoses follow up Procedures VIDEO PSYC/PSYL EST Laurie Serra, EDITORIAL WRITER.BENDING PRESS OPERATOR [address] [place] [address] Laurie Serra, EDITORIAL WRITER.BENDING PRESS OPERATOR [address] [place] [address] Referral ID Status Reason Start Date Expiration Date V isits Requested Visits Authorized [id number] New Request 03/06/2024 06/04/2024 1 1 Reason Onset Date Comments Refill Request 03/11/2024 Reason Comments Vaginal Problem Urinary Problem Reason Comments Results Reason Onset Date Comments Refill Request 05/29/2024 Specialty Diagnoses / Procedures Referred By Contac t Referred To Contact Psychiatry / ADULT PSYCHIATRY Diagnoses Patient Loosing insurance at end of month and request visit Procedures VIDEO PSYC/PSYL EST Laurie Serra, EDITORIAL WRITER.BENDING PRESS OPERATOR [address] [place] [address] Phone: tel: fax: Laurie Serra, EDITORIAL WRITER.BENDING PRESS OPERATOR [address] [place] [address] Phone: tel: fax: Referral ID Status Reason Start Date Expiration Date V isits Requested Visits Authorized [id number] New Request 06/23/2024 09/21/2024 1 1 Reason Comments New OB/ First OB Reason Onset Date Comments Care 08/15/2024 Reason Comments US Specialty Diagnoses / Procedures Referred By Pooja t Referred To Contact [facility] Diagnoses with uncertain dates in first trimester (HCC) care, first in first trimester (HCC) Procedures OBSTETRIC ULTRASOUND WHI US PREG UTERUS AFTER 1ST TRIMEST GESTATION Yasmeen Vera, EDITORIAL WRITER.BENDING PRESS OPERATOR [address] [place] [address] Phone: tel: fax: [facility] [address] [place] [address] Referral ID Status Reason Start Date Expiration Date V isits Requested Visits Authorized [id number] Closed Auto-Generate d Referral 07/18/2024 07/18/2025 1 [...] up Procedures EST PSYC ADULT Laurie Serra, EDITORIAL WRITER.BENDING PRESS OPERATOR [address] [place] [address] Phone: tel: fax: Laurie Serra, EDITORIAL WRITER.BENDING PRESS OPERATOR [address] [place] [address] Phone: tel: fax: Referral ID Status Reason Start Date Expiration Date V isits Requested Visits Authorized [id number] New Request 10/28/2024 01/26/2025 1 1 Reason Comments Care Reason Comments Orders Breast pump Reason Onset Date Comments Care 11/26/2024 Reason Onset Date Comments Care 12/10/2024 Care Team (unrecognized sect ion and content) Care Team Personnel Name: PRATIMA ONTIVEROS EDITORIAL WRITER-BENDING PRESS OPERATOR Position: P4 Advanced [employer] Worker Conveyor Line Member Role: Primary Care Physician Address: Address: [address] [place] [id number] [place] [address] Care Team Related Persons Name: CAMRON LEBRON Scheduled Active and Recently Administ ered Medications (unrecognized section and content) Medication Order 11/18/2022 11/19/2022 11/20/2022 busPIRone (Buspar) tablet 15 mg (COMPLETED) 15 mg, Oral, Once, On 11/19/22 at 2255, For 1 dose 2332 (Given - Provider: Cinthia Angulo RN) escitalopram (Lexapro) tablet 10 mg 10 mg, Oral, Once, On Sun11/20/22 at 0135, For 1 dose 0135 (Canceled [...] (Given - Provid er: Cinthia Angulo RN) Goals (unrecognized section and content) Goals may be documented in a n alternate section FOR RECORDS PERTAINING TO PATIENTS WHO ARE [...] BE BASED ON THE PRIMARY CLINICAL RECORDS. [facility]. provides no warranty or guarantee of the accuracy or completeness of information in this document.
[2025-02-25 21:44] VITALS: BP 140/75; PULSE 76; RESP 18; TEMP 36.6; O2SAT 99
--- OUTSIDE RECORDS SUMMARY | 2025-02-25 21:59 | XMS RPT_ITS | CCD ---
Author Organization [facility] Care Team Providers Care Risk Engineer Name Role Phone Migdalia Calderon LPN Unavailable Unavailable Migdalia Calderon LPN Unavailable Unavailable Angelique Walden NP Unavailable SYSTEM, PROVIDER NOT IN Primary Care Unavaila SALOME Moody Attending Unavail able Weston BHATTI [place] Primary Care Provider LORSON GROUND CREWMAN AIRCRAFT SUPPORT-WORM FARMER, [place] Primary Care Physician Weston BHATTI [place] Primary Care Provider Weston [place] Primary Care Provider [phone] LUKAS DARLING Attending [facility]available [facility] Care Unavailable PRINCE RAYA Attending Unavailable RAOULSON GROUND CREWMAN AIRCRAFT SUPPORT-WORM FARMER, [place] Primary [facility] Unavail able VERN URBAN MD Attending Unavailable LORSON GROUND CREWMAN AIRCRAFT SUPPORT-WORM FARMER, [facility] Unavail able LORSON GROUND CREWMAN AIRCRAFT SUPPORT-WORM FARMER, PRATIMA Attending Unavail able LORSON GROUND CREWMAN AIRCRAFT SUPPORT[facility] Unavail able Raoulson DAVY [place] Primary Care Provider Raoulson GROUND CREWMAN AIRCRAFT SUPPORT.WORM FARMER, [place] Primary Care Provider ROBYN VAZQUEZ DO Attending Unavailable PRATIMA ONTIVEROS Primary Care Unavailable Evie Avila NP Primary Care UnavailHoda Toth Referring Unavailable Hoda Hager Attending Unavailable Camelia Herrera Attending Unavailable Evie Avila NP Primary Care UnavailCamelia Hurst Referring Unavailable Evie Castro Primary Care Physician U enmaailleland eHrrera CNM, Camelia Attending Physician [phone] Javier CNRobert, Camelia Referring Provider Madan SARABIA, Hoda Attending Physician Madan SARABIA, Hoda Referring Provider LORSON, [place] Primary Care Unavailable HODA HAGER Attending Unavailable ANAYELI SERRAI J Referring Unavailable ANAYELI SERRAI J Attending Unavailable [facility] Primary Care Unavailable LORSON, [place] Primary Care Unavailable PLOTCALVIN BERMUDEZNEY Attending Unavailable [facility] Primary Care Unavailable PLOTCALVIN BERMUDEZNEY Attending Unavailable ARNALDORU, LAURIE J Attending Unavailable ARNALDORU, LAURIE J Referring Unavailable [facility] Primary Care Unavailable RAJGURU, LAURIE J Referring Unavailable RAJGURU, LAURIE J Attending Unavailable [facility] Primary Care Unavailable [facility] Primary Care Unavailable CAMELIA HERRERA Attending Unavailable [facility] Primary Care Unavailable CAMELIA HERRERA Attending Unavailable JODY, YASMEEN Referring Unavailable [facility] Primary Care Unavailable JODY, YASMEEN Referring Unavailable [facility] Primary Care Unavailable JODY, YASMEEN Referring Unavailable PLOTHODA BERMUDEZ Attending Unavailable [facility] Primary Care Unavailable HODA HAGER Attending Unavailable [facility] Primary Care Unavailable HODA HAGER Attending Unavailable [facility] Primary Care Unavailable TOÑA BLANKENSHIP Attending Unavailable [facility] Primary Care Unavailable BRENNAN HEAD Referring Unavailable ANAYELI SERRAI Angela Referring Unavailable JERSEYGURU, LAURIE J Attending Unavailable [facility] Primary Care Unavailable LORSON, [place] Primary Care Unavailable JODY, YASMEEN Attending Unavailable [facility] Primary Care Unavailable HAJOSEPH, BRENNAN Attending Unavailable [facility] Primary Care Unavailable CAMELIA HERRERA Attending Unavailable [facility] Primary Care Unavailable [facility] Primary Care Unavailable HODA HAGER Attending Unavailable [facility] Primary Care Unavailable JODY, YASMEEN Referring Unavailable [facility] Primary Care Unavailable PLOTHODA BERMUDEZ Attending Unavailable JODY, YASMEEN Referring Unavailable [facility] Primary Care Unavailable HODA HAGER Attending Unavailable [facility] Primary Care Unavailable HAURY, BRENNAN Attending Unavailable LORSON, PRAITMA Primary Care Unavailable BRENNAN HEAD Referring Unavailable PRATIMA ONTIVEROS Primary Care Unavailable CAMELIA HERRERA Attending Unavailable Allergies Allergy Classification Reported Allergen(s) Allergy Type Date of Onset Reaction(s) Facility (7 sources) amoxicillin; Translations: [amoxicillin] drug allergy 09-27-19 17 rash [facility] Work Phone: (3 sources) morphine drug allergy 09-27-19 17 [facility] Work Phone: (3 sources) sulfamethoxazole / trimethoprim drug allergy 09-27-19 17 [facility] Work Phone: (20 sources) Morphine; Translations: [morphine] Drug Allergy 05-02-19 23 GI Upset, Nausea (finding) [facility] (20 sources) Erythromycin; Translations: [erythromycin] Drug Allergy 05-17-19 16 [facility] (20 sources) busPIRone; Translations: [buspirone] Drug Allergy 01-30-20 23 Mental Status Change, Mental distress (finding) [facility] Comment on above: Mental State Change (20 sources) Azithromycin; Translations: [AZITHROMYCIN] Drug Allergy 10-30-19 24 Rash, Hives, GI Upset [facility] (20 sources) cefTRIAXone; Translations: [CEFTRIAXONE] Drug Allergy 01-09-20 15 Other: See Comments [facility] (20 sources) Sulfamethoxazole / Trimethoprim; Translations: [SULFAMETHOXAZOLE-TR IMETHOPRIM] Drug Allergy 09-27-19 17 Rash [facility] (1 source) Azithromycin Drug Allergy 01-19-20 25 [facility] (1 source) busPIRone Drug Allergy 01-19-20 25 [facility] (1 source) cefTRIAXone Drug Allergy 01-19-20 25 [facility] (2 sources) Erythromycin; Translations: [ERYTHROMYCIN BASE] Drug Allergy 05-17-19 16 [facility] (1 source) Morphine Drug Allergy 01-19-20 25 [facility] (1 source) Sulfonamides (Antibiotic) Drug allergy (disorder) 01-19-20 25 [facility] (1 source) Sulfonamides (Antibiotic) Allergy to substance 01-19-20 25 Hives [facility] Medications Current Medications Medication Drug Class(es) Dates [...] XANAX 0.5 MG TAB S prn ALPRAZOLAM [id number] 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 Take [...] (HCC) , care, first in first trimester ([facility]) Take 1 tablet by mouth once daily. [...] BID, # 270 tab(s), 3 Refill(s), Pharmacy: [facility], 168.5, cm, 10/06/20 7:31:00 EDT, [...] once daily. Take 2 tablets by mo [facility] once daily. hydrOXYzine hydrochloride 25 mg oral [...] 1 capsule by mouth once daily PNV 319-vrlj-xmmbdt-dha 90 mg iron- 1 mg-200 mg cap Indications: Irregular menstrual cycle Take 1 capsule by mouth once daily. 30 capsule 3 08/24/2022 06/22/2023 Discontinued (Course of therapy completed) Start: 08-24-2022 take 1 capsule by mo uth once daily PNV 349-zvvu-checjr-dha 90 mg iron- 1 mg-200 mg cap [...] 19 ORAL) Take by mouth once daily. [place] Active Saccharomyces boulardii (20 sources) Start: [...] 20 MG TABS q d CITALOPRAM HYDROBROMIDE [id number] Angelique Walden UTILITY MECHANIC SUPERVISOR CELEXA TABS q d CITALOPRAM HYDROBROMIDE TABS [id number] Migdalia Calderon LPN compounded progesterone 100 mg [...] Take 200 mg by mouth once daily. 161-zgki-rrtbg-omega3 (ONE-A-DAY -1) 27 mg iron- 800 mcg-235 mg cap (6 sources) Start: 04-02-2022 End: 11-06-2023 246-ulcv-uscwc-omega3 (ONE-A-DAY -1) 27 mg iron- 800 mcg-235 mg cap Start: 04-02-2022 168-i tdo-lusxc- (ONE-A-DAY -1) 27 mg iron- 800 mcg-235 mg cap vit 63-klpi-rmonf-dha (PRENATE MINI, FERR ASP GLYCIN,) 18-1-350 mg cap (5 sources) Start: 05-02-2022 take 1 capsule by mouth once daily vit 13-igui-ruehm-dha (PRENATE MINI, FERR ASP GLYCIN,) 18-1-350 mg cap Take 1 capsule by mouth once daily. 30 capsule 11 05/02/2022 Active Comment on above: Take 1 capsule by mo [facility] once daily. progesterone 100 mg oral capsule [...] Comment on above: Take 3 capsules by [facility] once daily. Used for mood. 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) drug therapy] 10-18-2023 Episodic Other complications [...] of ; Translations: [8 weeks gestation of ([facility])] Onset: 08-15-2024 Episodic Results Test Name Value Interpretation Reference Range Facility CNOVon 02-04-2025 CNOV Office Visit (OBGYWM) -------- SMITA NGUYEN ([id number]) 1995 F Date Time Provider Department 02/04/25 2:30 PM HODA HAGER During your visit today, we recorded the following information about you: Blood pressure Weight 118/76 91.2 kg Jason Umanzor LPN 02/04/2025 2:30 PM Signed SEQUENTIAL SCREENINGS The [facility] offers sequential screenings for women who [...] It will require an appointment with our emissions testing and repair technician. This is not an ultrasound performed [...] the above symptoms, contact our office at [phone] and ask to speak with a nurse. After hours, you can call doctors registry at [phone] OR call [facility] at [phone] and ask to have the doctor construction ironworker paged. If you consider this an emergency, dial -- or go to your nearest emergency department. NEED HELP? Are you dealing with a violent or abusive relationship? Are you a victim of rape or sexual assult? Call [facility] ([place]) 24 hour Crisis Hotline: 503.244.4859 or 146-834-4415. MANUAL Your Guide to a Healthy manual is now on-line. Visit [facility] /HealthyPregnancy Guide to download your free [...] of depression [Z86.59] Order(s):URINE OB DIP B/O [[id number]] Order #: [id number] Prescriptions as of 02/04/2025 - escitalopram oxalate [...] 19 ORAL) Take by mouth once daily. [place] - SACCHAROMYCES BOULARDII ORAL - INOSITOL [...] from you (more content not included)... Normal [facility] OB Triage Physician Noteon 1 OB Triage Physician Note [facility] Medical Records Department [address] [place] [address] OB Triage Physician Note 01/30/25 0855 MR#: [id number] Acct: [id number] Name: SMITA NGUYEN Rep #: [id number] : 1995 29 From: Toña Blankenship MD PCP: Evie Avila, UTILITY MECHANIC SUPERVISOR-C Status:DEP CLI Y Location: [facility] HPI - General General Date of [...] EDI Avila; Dr. Toña Blankenship MD Signed [facility] CNOVon 01-28-2025 CN Office Visit (OBGYWM) -------- SMITA NGUYEN ([id number]) 1995 F Date Time Provider Department 01/28/25 [...] 01/28/2025 2:31 PM Signed SEQUENTIAL SCREENINGS [facility] offers sequential screenings for women who [...] It will require an appointment with our emissions testing and repair technician. This is not an ultrasound performed [...] the above symptoms, contact our office at [phone] and ask to speak with a nurse. After hours, you can call doctors registry at [phone] OR call [facility] at [phone] and ask to have the doctor construction ironworker paged. If you consider this an emergency, dial 6-3-1 or go to your nearest emergency department. NEED HELP? Are you dealing with a violent or abusive relationship? Are you a victim of rape or sexual assult? Call [facility] ([place]) 24 hour Crisis Hotline: 512.456.2647 or 251-338-7451. MANUAL Your Guide to a Healthy manual is now on-line. Visit [facility] g/HealthyPregnancy Guide to download your free [...] of depression [Z86.59] Order(s):URINE OB DIP B/O [[id number]] Order #: [id number] ROUTINE, GROUP B STREPTOCOCCUS BY PCR [[id number]] Order #: [id number]. #:[id number] Prescriptions as of 01/28/2025 - escitalopram oxalate [...] 19 ORAL) Take by mouth once daily. [place] - SACCHAROMYCES BOULARDII ORAL - INOSITOL [...] Other instruction (more content not included)... Normal [facility] ROUTINE, GROUP B ST REPTOCOCCUS BY PCRon 01-28-2025 ROUTINE, GROUP B STREPTOCOCCUS BY PCR Not detected Normal [facility] Comment on above: Performed By: #### G BPCR ####[facility] LABCLIA [id number] [address] OF [facility] CNOVon 01-21-2025 CNOV Office Visit (OBGYWM) -------- SMITA NGUYEN ([id number]) 1995 F Date Time Provider Department 01/21/25 2:30 PM HODA HAGER During your visit today, we recorded the following information about you: Blood pressure Weight 120/74 90.3 kg Jason Umanzor LPN 01/21/2025 2:34 PM Signed SEQUENTIAL SCREENINGS The [facility] offers sequential screenings for women who [...] It will require an appointment with our emissions testing and repair technician. This is not an ultrasound performed [...] the above symptoms, contact our office at [phone] and ask to speak with a nurse. After hours, you can call doctors registry at [phone] OR call [facility] at [phone] and ask to have the doctor construction ironworker paged. If you consider this an emergency, dial 9- or go to your nearest emergency department. NEED HELP? Are you dealing with a violent or abusive relationship? Are you a victim of rape or sexual assult? Call [facility] ([place]) 24 hour Crisis Hotline: 802.414.7806 or 945-023-5664. MANUAL Your Guide to a Healthy manual [...] of anxiety [Z86.59] Order(s):URINE OB DIP B/O [[id number]] Order #: [id number] CONSULT TO MASSAGE THERAPY [[id number]] Order #: [id number]: 1 FUTURE MASSAGE THERAPY [[id number]] Order #: [id number] Prescriptions as of 01/21/2025 - omega-3 DHA-EPA [...] 19 ORAL) Take by mouth once daily. [place] - SACCHAROMYCES BOULARDII ORAL - INOSITOL [...] abnormal O (more content not included)... Normal [facility] 01-10-2025 Cotinine Lvl <1.0 [facility] Comment on above: Result Comment: This test was developed and its performance characteristics determined by [employer]. It has not been cleared or approved by the Food and Drug Administration. Cotinine levels greater than 20.0 are consistent with the use of tobacco or tobacco cessation products. Performed At: [address] [id number] Dheeraj Campbell MD Ph:[phone] Performed By: #### 0 [id number] #### [address] [address] Nicotine Lvl <1.0 [facility] Comment on above: Result Comment: This test was developed and its performance characteristics determined by [employer]. It has not been cleared or approved by the Food and Drug Administration. Nicotine levels greater than 2.0 are consistent with the use of tobacco or tobacco cessation products. Performed By: #### 0 [id number] #### [address] [place], [place] [address] CNOVon 01-07-2025 CNOV Office Visit (OBGYWM) -------- SMITA NGUYEN ([id number]) 1995 F Date Time Provider Department 01/07/25 2:30 PM [facility] OBGYWM During your visit today, we recorded the following information about you: Blood pressure Weight 116/71 89.4 kg Hoda Hager APRN.CNM 01/07/2025 3:23 PM Signed S: Smita Nguyen is a 29 year old female who presents at 33 weeks gestation for centering/routine visit. Decreased movements since last night. Placed on NST. NST reactive. No contractions. C/O increased anxiety and started taking [place] supplements- 1250 mg per psych. GROUND CREWMAN AIRCRAFT SUPPORT recommendation. Denies headache, visual changes, chest pain, [...] 01/07/2025 2:12 PM Signed SEQUENTIAL SCREENINGS The [facility] offers sequential screenings for women who [...] It will require an appointment with our emissions testing and repair technician. This is not an ultrasound performed [...] the above symptoms, contact our office at [phone] and ask to speak with a nurse. After hours, you can call doctors registry at [phone] OR call [facility] at [phone] and ask to have the doctor construction ironworker paged. If you consider this an emergency, dial 0-6-6 or go to your nearest emergency department. NEED HELP? Are you dealing with a violent or abusive relationship? Are you a victim of rape or sexual assult? Call [facility] ([place]) 24 hour Crisis Hotline: 978.488.4687 or 228-361-2625. MANUAL Your Guide to a Healthy manual is now on-line. Visit [facility] g/HealthyPregnancy Guide to download your free [...] 19 ORAL) Take by mouth once daily. [place] - SACCHAROMYCES BOULARDII ORAL - INOSITOL ORAL - cholecalciferol, vitamin D3, (VITAMIN D3 ORAL) - MAGNESIUM GLYCINATE, BULK, MISC Problem List As Of Date (more content not included)... Normal [facility] LABORATORYOrdered By: Repairy P CONTRIBUTOR_SYSTEM on 01-06-2025 Cotinine Lvl (LC) ng/mL Invalid Interpretation Code AO Sendouts SS Comment on above: Result Comment: This test was developed and its performance characteristics determined by [employer]. It has not been cleared or approved by the Food and Drug Administration. Cotinine levels greater than 20.0 are consistent with the use of tobacco or tobacco cessation products. Performed At: [facility] [id number] [place], [place] [id number] Dheeraj Campbell MD Ph:[phone] Nicotine Lvl (LC) ng/mL Invalid Interpretation Code AO Sendouts SS Comment on above: Result Comment: This test was developed and its performance characteristics determined by [employer]. It has not been cleared or approved by the Food and Drug Administration. Nicotine levels greater than 2.0 are consistent with the use of tobacco or tobacco cessation products. CNOVon 12-24-2024 CNOV Office Visit (OBGYWM) -------- SMITA NGUYEN ([id number]) 1995 F Date Time Provider Department 12/24/24 [...] Diagnosis:Supervis ion of normal first , antepartum ([facility]) [Z34.00] Other Visit Diagnoses:History of depression [Z86.59] [...] 19 ORAL) Take by mouth once daily. [place] - SACCHAROMYCES BOULARDII ORAL - INOSITOL ORAL - cholecalciferol, vitamin D3, (VITAMIN D3 ORAL) - MAGNESIUM GLYCINATE, BULK, MISC Problem List As Of Date 12/24/2024 Noted Resolved TMJ (temporomandibular joint syndrome) [M26.609] 9 Supervision of normal first , antepart* 5 History of Lyme disease [Z86.19] 08/15/2024 Depression [F32.A] History of anxiety [Z86.59] 12/10/2024 Encounter Status:Closed by HODA HAGER on 12/24/24 Normal [facility] CNOVon 12-10-2024 CNOV Office Visit (OBGYWM) -------- WENDYESMEY ([id number]) 1995 F Date Time Provider Department 12/10/24 [...] 12/10/2024 2:36 PM Signed SEQUENTIAL SCREENINGS [facility] offers sequential screenings for women who [...] It will require an appointment with our emissions testing and repair technician. This is not an ultrasound performed [...] the above symptoms, contact our office at [phone] and ask to speak with a nurse. After hours, you can call doctors registry at [phone] OR call [facility] at [phone] and ask to have the doctor construction ironworker paged. If you consider this an emergency, dial 2--6 or go to your nearest emergency department. NEED HELP? Are you dealing with a violent or abusive relationship? Are you a victim of rape or sexual assult? Call [facility] ([place]) 24 hour Crisis Hotline: 866.984.2454 or 495-792-0617. MANUAL Your Guide to a Healthy manual [...] 19 ORAL) Take by mouth once daily. [place] - SACCHAROMYCES BOULARDII ORAL - INOSITOL ORAL - cholecalciferol, vitamin D3, (VITAMIN D3 ORAL) - MAGNESIUM GLYCINATE, BULK, MISC Problem List As Of Date 12/10/2024 Noted Resolved TMJ (temporomandibular joint syndrome) [M26.609] 9 Supervision of normal first , antepart* 5 History of Lyme disease [Z86.19] 08/15/2024 Depression [F32.A] History of anxiety [Z86.59] 12/10/2024 Other instructions from your clinician: SEQUENTIAL SCREENINGS [facility] offers sequential screenings for women who [...] are drawn (more content not included)... Normal [facility] CBC W Auto Differential pane l (Bld)on 11-26-2024 Basophils (Bld) [#/Vol] 0.06 10*3/uL Normal <0.11 [facility] Comment on above: Order Comment: Speci men Type: BLOOD SPECIMEN Ordering Facility: [facility] Address: [address] [place] [address] Performed By: #### C RRSCN #### [facility] CLIA [id number] [address] [place] [address] Basophils/100 WBC (Bld) 0.6 % Normal [facility] Comment on above: Order Comment: Speci men Type: BLOOD SPECIMEN Ordering Facility: [facility] Address: [address] [place] [address] Performed By: #### C RRSCN #### [facility] CLIA [id number] [address] [place] [address] Differential cell count method Nom (Bld) Auto Normal [facility] Comment on above: Order Comment: Speci men Type: BLOOD SPECIMEN Ordering Facility: [facility] Address: [address] [place] [address] Performed By: #### C RRSCN #### [facility] CLIA [id number] [address] [place] [address] Eosinophils (Bld) [#/Vol] 0.08 10*3/uL Normal <0.46 [facility] Comment on above: Order Comment: Speci men Type: BLOOD SPECIMEN Ordering Facility: [facility] Address: [address] [place] [address] Performed By: #### C RRSCN #### [facility] CLIA [id number] [address] [place] [address] Eosinophils/100 WBC (Bld) 0.8 % Normal [facility] Comment on above: Order Comment: Speci men Type: BLOOD SPECIMEN Ordering Facility: [facility] Address: [address] [place] [address] Performed By: #### C RRSCN #### [facility] CLIA [id number] [address] [place] [address] Erythrocyte distribution width (RBC) [Ratio] 12.6 % Normal 11.5-15.0 [facility] Comment on above: Order Comment: Speci men Type: BLOOD SPECIMEN Ordering Facility: [facility] Address: [address] [place] [address] Performed By: #### C RRSCN #### [facility] CLIA [id number] [address] [place] [address] Hematocrit (Bld) [Volume fraction] 33.9 % Low 36.0-46.0 [facility] Comment on above: Order Comment: Speci men Type: BLOOD SPECIMEN Ordering Facility: [facility] Address: [address] [place] [address] Performed By: #### C RRSCN #### [facility] CLIA [id number] [address] [place] [address] Hemoglobin (Bld) [Mass/Vol] 11.8 g/dL Normal 11.5-15.5 [facility] Comment on above: Order Comment: Speci men Type: BLOOD SPECIMEN Ordering Facility: [facility] Address: [address] [place] [address] Performed By: #### C RRSCN #### [facility] CLIA [id number] [address] [place] [address] Immature granulocytes (Bld) [#/Vol] 0.12 10*3/uL High <0.10 [facility] Comment on above: Order Comment: Speci men Type: BLOOD SPECIMEN Ordering Facility: [facility] Address: [address] [place] [address] Performed By: #### C RRSCN #### [facility] CLIA [id number] [address] [place] [address] Immature granulocytes/100 WBC (Bld) 1.2 % Normal [facility] Comment on above: Order Comment: Speci men Type: BLOOD SPECIMEN Ordering Facility: [facility] Address: [address] [place] [address] Performed By: #### C RRSCN #### [facility] CLIA [id number] [address] [place] [address] Lymphocytes (Bld) [#/Vol] 2.03 10*3/uL Normal 1.00-4.00 [facility] Comment on above: Order Comment: Speci men Type: BLOOD SPECIMEN Ordering Facility: [facility] Address: [address] [place] [address] Performed By: #### C RRSCN #### [facility] CLIA [id number] [address] [place] [address] Lymphocytes/100 WBC (Bld) 20.2 % Normal [facility] [facility] Comment on [facility]: Order Comment: Speci men Type: BLOOD SPECIMEN Ordering Facility: [facility] Address: [address] [place] [address] Performed By: #### C RRSCN #### [facility] CLIA [id number] [address] [place] [address] MCH (RBC) [Entitic mass] 32.0 pg Normal 26.0-34.0 [facility] Comment on above: Order Comment: Speci men Type: BLOOD SPECIMEN Ordering Facility: [facility] Address: [address] [place] [address] Performed By: #### C RRSCN #### [facility] CLIA [id number] [address] [place] [address] MCHC (RBC) [Mass/Vol] 34.8 g/dL Normal 30.5-36.0 [facility] Comment on above: Order Comment: Speci men Type: BLOOD SPECIMEN Ordering Facility: [facility] Address: [address] [place] [address] Performed By: #### C RRSCN #### [facility] CLIA [id number] [address] [place] [address] MCV (RBC) [Entitic vol] 91.9 fL Normal 80.0-100.0 [facility] Comment on above: Order Comment: Speci men Type: BLOOD SPECIMEN Ordering Facility: [facility] Address: [address] [place] [address] Performed By: #### C RRSCN #### [facility] CLIA [id number] [address] [place] [address] Monocytes (Bld) [#/Vol] 0.74 10*3/uL Normal <0.87 [facility] Comment on above: Order Comment: Speci men Type: BLOOD SPECIMEN Ordering Facility: [facility] Address: [address] [place] [address] Performed By: #### C RRSCN #### [facility] CLIA [id number] [address] [place] [address] Monocytes/100 WBC (Bld) 7.3 % Normal [facility] Comment on above: Order Comment: Speci men Type: BLOOD SPECIMEN Ordering Facility: [facility] Address: [address] [place] [address] Performed By: #### C RRSCN #### [facility] CLIA [id number] [address] [place] [address] Neutrophils (Bld) [#/Vol] 7.04 10*3/uL Normal 1.45-7.50 [facility] Comment on above: Order Comment: Speci men Type: BLOOD SPECIMEN Ordering Facility: [facility] Address: [address] [place] [address] Performed By: #### C RRSCN #### [facility] CLIA [id number] [address] [place] [address] Neutrophils/100 WBC (Bld) 69.9 % Normal [facility] Comment on above: Order Comment: Speci men Type: BLOOD SPECIMEN Ordering Facility: [facility] Address: [address] [place] [address] Performed By: #### C RRSCN #### [facility] CLIA [id number] [address] [place] [address] Nucleated RBC (Bld) [#/Vol] 10*3/uL Normal <0.01 [facility] Comment on above: Order Comment: Speci men Type: BLOOD SPECIMEN Ordering Facility: [facility] Address: [address] [place] [address] Performed By: #### C RRSCN #### [facility] CLIA [id number] [address] [place] [address] Nucleated RBC/100 WBC (Bld) [Ratio] 0.0 /100 WBC Normal [facility] Comment on above: Order Comment: Speci men Type: BLOOD SPECIMEN Ordering Facility: [facility] Address: [address] [place] [address] Performed By: #### C RRSCN #### [facility] CLIA [id number] [address] [place] [address] Platelet mean volume (Bld) [Entitic vol] 10.7 fL Normal 9.0-12.7 [facility] Comment on above: Order Comment: Speci men Type: BLOOD SPECIMEN Ordering Facility: [facility] Address: [address] [place] [address] Performed By: #### C RRSCN #### [facility] CLIA [id number] [address] [place] [address] Platelets (Bld) [#/Vol] 219 10*3/uL Normal 150-400 [facility] Comment on above: Order Comment: Speci men Type: BLOOD SPECIMEN Ordering Facility: [facility] Address: [address] [place] [address] Performed By: #### C RRSCN #### [facility] CLIA [id number] [address] [place] [address] RBC (Bld) [#/Vol] 3.69 10*6/uL Low 3.90-5.20 [facility] Comment on above: Order Comment: Speci men Type: BLOOD SPECIMEN Ordering Facility: [facility] Address: [address] [place] [address] Performed By: #### C RRSCN #### [facility] CLIA [id number] [address] [place] [address] WBC (Bld) [#/Vol] 10.07 10*3/uL Normal 3.70-11.00 [facility] Comment on above: Order Comment: Speci men Type: BLOOD SPECIMEN Ordering Facility: [facility] Address: [address] [place] [address] Performed By: #### C RRSCN #### [facility] CLIA [id number] [address] [place] [address] CNOVon 11-26-2024 CNOV Office Visit (OBGYWM) -------- SMITA NGUYEN ([id number]) 1995 F Date Time Provider Department 11/26/24 [...] complaints. Leaving for vacation next week in [place]. O: See flow sheet Gen: No apparent distress Abd: Gravid, nontender ASSESSMENT/PLAN: 1. 27 weeks gestation of 2. Supervision of normal first , antepartum 3. Other depression 4. History of depression - Continue Lexapro 20 mg PO Daily - Continue vitamin and ASA - Traveling via plane to [place] next week- wearing compression stockings and increase [...] 11/26/2024 2:38 PM Signed SEQUENTIAL SCREENINGS [facility] offers sequential screenings for women who [...] It will require an appointment with our emissions testing and repair technician. This is not an ultrasound performed [...] the above symptoms, contact our office at [phone] and ask to speak with a nurse. After hours, you can call doctors registry at [phone] OR call [facility] at [phone] and ask to have the doctor construction ironworker paged. If you consider this an emergency, dial 9-1-2 or go to your nearest emergency department. NEED HELP? Are you dealing with a violent or abusive relationship? Are you a victim of rape or sexual assult? Call [facility] ([place]) 24 hour Crisis Hotline: 213.417.8899 or 538-900-2866. MANUAL Your Guide to a Healthy manual is now on-line. Visit [email or web address]HealthyP[facility] Guide to download your free [...] 19 ORAL) Take by mouth once daily. [place] - SACCHAROMYCES BOULARDII ORAL - INOSITOL ORAL - cholecalciferol, vitamin D3, (VITAMIN D3 ORAL) - MAGNESIUM GLYCINATE, BULK, MISC Problem List As Of Date 11/26/2024 Noted Resolved TMJ (temporomandibular joint syndrome) [M26.609] 9 Supervision of normal first , antepart* 5 History of Lyme disease [Z86.19] 08/15/2024 Depression [F32.A] Other instructions from your clinician: SEQUENTIAL SCREENINGS [facility] offe (more content not included)... Normal [facility] GESTATIONAL GLUCOSE SCREEN, 1-HOUR, 50 GRAM, NON-FASTINGon 11-26-2024 Glucose [Mass/Vol] 92 mg/dL Normal 74-134 [facility] Comment on above: Order Comment: Nicole keyes Type: BLOOD SPECIMENOrdering Facility: [facility] Address: [address] [place] [address] Result Comment: Amer [facility] Congress of Obstetricians and Gynecologists (Rock/Corey) guidelines state a gestational diabetes mellitus positive screen is made, in women not previously diagnosed with overt diabetes, when the 1 hr plasma glucose level is equal to or above 140 mg/dL. [facility] Dental Hygiene Administrative Assistant and Women's Health Rector recommends a 135 mg/dL cutoff. Performed By: #### G LTGST ####[facility] [id number] [place] [address] [place] Reagin and Treponema pallidu m IgG and IgM [Interp]on 11-26-2024 T. pallidum IgG+IgM IA Ql (S) Non-Reactive Normal Nonreactive [facility] Comment on above: Order Comment: Nicole keyes Type: BLOOD SPECIMEN Ordering Facility: [facility] Address: [address] [place] [address] Performed By: #### C RRSCN #### [facility] CLIA [id number] [address] [place] [address] Reagin+T pallidum IgG+IgM Se rPl-Impon 11-26-2024 Reagin and Treponema pallidum IgG and IgM [Interp] Cannot exclude recent Treponemal infection if specimen collected within 7-10 days after appearance of suspect lesions or 2-3 weeks after an exposure. Clinical correlation is required. Normal [facility] Comment on above: Order Comment: Speci men Type: BLOOD SPECIMEN Ordering Facility: [facility] Address: [address] [place] [address] Performed By: #### C RRSCN #### [facility] CLIA [id number] [address] [place] [address] CNPNon 11-20-2024 CNPN Telephone (OBGYWM) -------- SMITA NGUYEN ([id number]) 1995 F Date Time Provider Department 11/20/24 CAMELIA HERRERA During your visit today, we recorded the following information about you: Glendy Castaneda LPN 11/20/2024 5:17 PM Signed Breast pump prescription received from [employer]. Order to Mario Alberto Herrera to sign [...] 19 ORAL) Take by mouth once daily. [place] - SACCHAROMYCES BOULARDII ORAL - INOSITOL ORAL - cholecalciferol, vitamin D3, (VITAMIN D3 ORAL) - MAGNESIUM GLYCINATE, BULK, MISC Problem List As Of Date 11/20/2024 Noted Resolved TMJ (temporomandibular joint syndrome) [M26.609] 9 Supervision of normal first , antepart* 5 History of Lyme disease [Z86.19] 08/15/2024 Depression [F32.A] Encounter Status:Closed by MORA VILLARREAL on 11/24/24 Normal [facility] CNOVon 11-12-2024 CNOV Office Visit (OBGYWM) -------- WENDYSMITA ([id number]) 1995 F Date Time Provider Department 11/12/24 [...] [Z34.00] Other Visit Diagnoses:25 weeks gestation of ([facility]) [Z3A.25] Other depression [F32.89] Prescriptions as of 11/12/2024 - escitalopram oxalate (LEXAPRO) 20 mg tablet Take 1.5 tablets by mouth once daily. - aspirin, enteric coated (ECOTRIN LOW STRENGTH) 81 mg EC tablet Take 1 tablet by mouth once daily. - no115/iron/folic acid ( 19 ORAL) Take by mouth once daily. [place] - SACCHAROMYCES BOULARDII ORAL - INOSITOL [...] Encounter Status:Closed by CAMELIA HERRERA on 11/12/24 [facility] CNOVon 10-28-2024 CNOV Office Visit (PSWSTR) -------- SMITA NGUYEN ([id number]) 1995 F Date Time Provider Department 10/28/24 11:30 AM LAURIE SERRA PSWSTR During your visit today, we recorded the following information about you: Pulse Blood pressure Weight 70/minute 113/66 81.2 kg JerseymikeLaurie blue, GROUND CREWMAN AIRCRAFT SUPPORT.WORM FARMER 10/28/2024 11:01 PM Signed FOLLOW UP - PSYCHIATRIC PROGRESS NOTE Visit Type:In person Recording using ambient KAL software for draft documentation of the visit was discussed with the patient/authorized collections representative; all questions welcomed and answered. Patient/authorized collections representative agreed to proceed CC: Outpatient follow-up [...] due to recommendations from her midwives at [facility]. She has not needed to use hydroxyzine or Ativan recently but keeps Ativan as a safety net, carrying 1-2 pills with her and keeping the rest at home. She is planning a water at [facility] and is open to alternative delivery methods [...] when she learned of her brother and pmzsmp-wr-nlq's , but she became herself in May, [...] 19 ORAL) Take by mouth once daily. [place] SACCHAROMYCES BOULARDII ORAL INOSITOL ORAL cholecalciferol, [...] Demeanor: [employer] (more content not included)... Normal [facility] CNOVon 10-22-2024 CNOV Office Visit (OBGYWM) -------- SMITA NGUYEN ([id number]) 1995 F Date Time Provider Department 10/22/24 [...] 10/22/2024 2:35 PM Signed SEQUENTIAL SCREENINGS [facility] offers sequential screenings for women who [...] It will require an appointment with our emissions testing and repair technician. This is not an ultrasound performed [...] the above symptoms, contact our office at [phone] and ask to speak with a nurse. After hours, you can call doctors registry at [phone] OR call [facility] at [phone] and ask to have the doctor construction ironworker paged. If you consider this an emergency, dial 6-3-8 or go to your nearest emergency department. NEED HELP? Are you dealing with a violent or abusive relationship? Are you a victim of rape or sexual assult? Call [facility] ([place]) 24 hour Crisis Hotline: 857.374.8004 or 394-879-4812. MANUAL Your Guide to a Healthy manual is now on-line. Visit [email or web address] /HealthyPregnancy Guide to download your free [...] 19 ORAL) Take by mouth once daily. [place] - SACCHAROMYCES BOULARDII ORAL - INOSITOL ORAL - cholecalciferol, vitamin D3, (VITAMIN D3 ORAL) - MAGNESIUM GLYCINATE, BULK, MISC Problem List As Of Date 10/22/2024 Noted Resolved TMJ (temporomandibular joint syndrome) [M26.609] 9 Supervision of normal first , antepart* History of Lyme disease [Z86.19] 08/15/2024 Depression [F32.A] Other instructions from your clinician: SEQUENTIAL SCREENINGS [facility] offers sequential screenings for women who are interested in screenings for chromosomal abnormalities and certain defects during a . The sequential screen combines ultrasound and blood tests to determine the risk of chromosomal abnormalities, including Down's Syndrome (Trisomy 21) and Trisomy 18, as well as open neural tube defe (more content not included)... Normal [facility] Examination level ultrasound on 10-08-2024 Indication [...] 11 oz EFW by: Hadlock (HC-AC-FL) Extended Custodian Athletic Equipment 7.0 mm CM 3.9 mm 15% Nicolaides [...] normal LVOT view: normal 3-vessel view: normal 6-wgtwdv-ftqkrgf view: normal Heart / Thorax Situs: situs [...] Read By: Dionne Pearson M.D. MATERNAL MEDICINE [facility] Radiology Study observation (narrative) [facility] CARRIER SCREEN, STANDARDon 0 08-15-2024 CARRIER SCREEN RESULTS View results in Scanned Documents link when available. Normal [facility] Comment on above: Order Comment: Speci men Type: BLOOD SPECIMEN Ordering Facility: [facility] Address: [address] [place] [address] Performed By: #### C RRSCN #### [facility] CLIA [id number] [address] [place] [address] CBC W Auto Differential pane l (Bld)on 08-15-2024 Basophils (Bld) [#/Vol] 0.04 10*3/uL Normal <0.11 [facility] Comment on above: Order Comment: Speci men Type: BLOOD SPECIMENOrdering Facility: [facility] Address: [address] [place] [address] Performed By: #### 5 7021-8 ####[facility] MILLWNCLIA [id number] [place] [address] [place] Basophils/100 WBC (Bld) 0.4 % Normal [facility] Comment on above: Order Comment: Speci men Type: BLOOD SPECIMENOrdering Facility: [facility] Address: [address] [place] [address] Performed By: #### 5 7021-8 ####[facility]ENTER[facility]IA [id number] [place] [address] [place] Differential cell count method Nom (Bld) Auto Normal [facility] Comment on above: Order Comment: Speci men Type: BLOOD SPECIMENOrdering Facility: [facility] Address: [address] [place] [address] Performed By: #### 5 7021-8 ####[facility]ENTER[facility] [id number] [place] [address] [place] Eosinophils (Bld) [#/Vol] 0.07 10*3/uL Normal <0.46 [facility] Comment on above: Order Comment: Speci men Type: BLOOD SPECIMENOrdering Facility: [facility] Address: [address] [place] [address] Performed By: #### 5 7021-8 ####[facility] MILLWWALIA [id number] [place] [address] [place] Eosinophils/100 WBC (Bld) 0.7 % Normal [facility] Comment on above: Order Comment: Speci men Type: BLOOD SPECIMENOrdering Facility: [facility] Address: [address] [place] [address] Performed By: #### 5 7021-8 ####[facility]ENTER[facility] [id number] [place] [address] [place] Erythrocyte distribution width (RBC) [Ratio] 12.4 % Normal 11.5-15.0 [facility] Comment on above: Order Comment: Speci men Type: BLOOD SPECIMENOrdering Facility: [facility] Address: [address] [place] [address] Performed By: #### 5 7021-8 ####[facility] HOSPITALDOMINGUEZ [id number] [place] [address] [place] Hematocrit (Bld) [Volume fraction] 37.2 % Normal 36.0-46.0 [facility] Comment on above: Order Comment: Speci men Type: BLOOD SPECIMENOrdering Facility: [facility] Address: [address] [place] [address] Performed By: #### 5 7021-8 ####[facility] HOS[facility]ITALDOMINGUEZ [id number] [place] [address] [place] Hemoglobin (Bld) [Mass/Vol] 13.1 g/dL Normal 11.5-15.5 [facility] Comment on above: Order Comment: Speci men Type: BLOOD SPECIMENOrdering Facility: [facility] Address: [address] [place] [address] Performed By: #### 5 7021-8 ####[facility]ITALDOM[facility]Z [id number] [place] [address] [place] Immature granulocytes (Bld) [#/Vol] 0.05 10*3/uL Normal <0.10 [facility] Comment on above: Order Comment: Speci men Type: BLOOD SPECIMENOrdering Facility: [facility] Address: [address] [place] [address] Performed By: #### 5 7021-8 ####[facility] HOSPITALNCLIA [id number] [place] [address] [place] Immature granulocytes/100 WBC (Bld) 0.5 % Normal [facility] Comment on above: Order Comment: Speci men Type: BLOOD SPECIMENOrdering Facility: [facility] Address: [address] [place] [address] Performed By: #### 5 7021-8 ####[facility] LUISVikiNCRANDI [id number] [place] [address] [place] Lymphocytes (Bld) [#/Vol] 2.32 10*3/uL Normal 1.00-4.00 [facility] Comment on above: Order Comment: Speci men Type: BLOOD SPECIMENOrdering Facility: [facility] Address: [address] [place] [address] Performed By: #### 5 7021-8 ####[facility] HOSPITALNCMOUNT[facility] [id number] [place] [address] [place] Lymphocytes/100 WBC (Bld) 24.8 % Normal [facility] Comment on above: Order Comment: Speci men Type: BLOOD SPECIMENOrdering Facility: [facility] Address: [address] [place] [address] Performed By: #### 5 7021-8 ####[facility] HOSPITALNCMOUNT[facility] [id number] [place] [address] [place] MCH (RBC) [Entitic mass] 31.4 pg Normal 26.0-34.0 [facility] Comment on above: Order Comment: Speci men Type: BLOOD SPECIMENOrdering Facility: [facility] Address: [address] [place] [address] Performed By: #### 5 7021-8 ####[facility] HOSPITALNCLIA [id number] [place] [address] [place] MCHC (RBC) [Mass/Vol] 35.2 g/dL Normal 30.5-36.0 [facility] Comment on above: Order Comment: Speci men Type: BLOOD SPECIMENOrdering Facility: [facility] Address: [address] [place], [place] [address] Performed By: #### 5 7021-8 ####[facility] HOSPITALNCLIA [id number] [place] [address] [place] MCV (RBC) [Entitic vol] 89.2 fL Normal 80.0-100.0 [facility] [place] Comment on above: Order Comment: Speci men Type: BLOOD SPECIMENOrdering Facility: [facility] Address: [address] [place] [address] Performed By: #### 5 7021-8 ####[facility] HOSPITALNCLIA [id number] [place] [address] [place] Monocytes (Bld) [#/Vol] 0.55 10*3/uL Normal <0.87 [facility] Comment on above: Order Comment: Speci men Type: BLOOD SPECIMENOrdering Facility: [facility] Address: [address] [place] [address] Performed By: #### 5 7021-8 ####[facility] HOSPITALNCLIA [id number] [place] [address] [place] Monocytes/100 WBC (Bld) 5.9 % Normal [facility] [place] Comment on above: Order Comment: Speci men Type: BLOOD SPECIMENOrdering Facility: [facility] Address: [address] [place] [address] Performed By: #### 5 7021-8 ####[facility] HOSPITALNCLIA [id number] [place] [address] [place] Neutrophils (Bld) [#/Vol] 6.31 10*3/uL Normal 1.45-7.50 [facility] Comment on above: Order Comment: Speci men Type: BLOOD SPECIMENOrdering Facility: [facility] Address: [address] [place] [address] Performed By: #### 5 7021-8 ####[facility] CENTERA [id number] [place] [address] [place] Neutrophils/100 WBC (Bld) 67.7 % Normal [facility] Comment on above: Order Comment: Speci men Type: BLOOD SPECIMENOrdering Facility: [facility] Address: [address] [place] [address] Performed By: #### 5 7021-8 ####[facility] [id number] [place] [address] [place] Nucleated RBC (Bld) [#/Vol] 10*3/uL Normal <0.01 [facility] Comment on above: Order Comment: Speci men Type: BLOOD SPECIMENOrdering Facility: [facility] Address: [address] [place] [address] Performed By: #### 5 7021-8 ####[facility] HOSPITALNCMOUNT[facility] [id number] [place] [address] [place] Nucleated RBC/100 WBC (Bld) [Ratio] 0.0 /100 WBC Normal [facility] Comment on above: Order Comment: Speci men Type: BLOOD SPECIMENOrdering Facility: [facility] Address: [address] [place] [address] Performed By: #### 5 7021-8 ####[facility] COMMUN[facility] HOSPITALNCLI [id number] [place] [address] [place] Platelet mean volume (Bld) [Entitic vol] 10.5 fL Normal 9.0-12.7 [facility] Comment on above: Order Comment: Speci men Type: BLOOD SPECIMENOrdering Facility: [facility] Address: [address] [place] [address] Performed By: #### 5 7021-8 ####[facility] HOSPITALNCLIA [id number] [place] [address] [place] Platelets (Bld) [#/Vol] 264 10*3/uL Normal 150-400 [facility] Comment on above: Order Comment: Speci men Type: BLOOD SPECIMENOrdering Facility: [facility] Address: [facility] [place] [address] Performed By: #### 5 7021-8 ####[facility] OSMINWNCLIA [id number] [place] [address] [place] RBC (Bld) [#/Vol] 4.17 10*6/uL Normal 3.90-5.20 [facility] Comment on above: Order Comment: Speci men Type: BLOOD SPECIMENOrdering Facility: [facility] Address: [address] [place] [address] Performed By: #### 5 7021-8 ####[facility] LUISWEST POINTNCLIA [id number] [place] [address] [place] WBC (Bld) [#/Vol] 9.34 10*3/uL Normal 3.70-11.00 [facility] Comment on above: Order Comment: Speci men Type: BLOOD SPECIMENOrdering Facility: [facility] Address: [address] [place] [address] Performed By: #### 5 7021-8 ####[facility] LUISWNCLIA [id number] [place] [address] [place] Examination level ultrasound on 08-15-2024 Indication First trimester anatomic survey Impression The patient is referred for a first trimester anatomy scan including nuchal translucency measurement as clinically indicated. - Single, live, intrauterine . - [place] rump length measurement is consistent with the [...] view: visualized 4-chamber view with color: visualized 3-kbofjd-fwitoml view: normal Abdominal cord insertion: normal Stomach: [...] Read By: Dionne Pearson M.D. MATERNAL MEDICINE [facility] Radiology Study observation (narrative) [facility] HBV surface Ag Ser Qlon 07-31 HBV surface Ag Ql (S) Negative Normal Negative [facility] Comment on above: Order Comment: Speci men Type: BLOOD SPECIMENOrdering Facility: [facility] Address: [address] [place] [address] Performed By: #### 5 195-3, 77257-5, 02874-1 ####[facility] LABCLIA [id number] [place] [address] [place] HCV Ab Ser Qlon 08-15-2024 HCV Ab Ql (S) Negative Normal Negative [facility] [facility] Comment on above: Order Comment: Speci men Type: BLOOD SPECIMEN Ordering Facility: [facility] Address: [address] [place] [address] Result Comment: The result suggests no evidence of infection with Hepatitis C virus. Should recent infection be suspected, repeat testing may be considered 4-6 weeks after this draw. Performed By: #### C RRSCN #### [facility] CLIA [id number] [address] [place] [address] HIV 1+2 Ab IA Qlon HIV 1 and 2 Ab IA.rapid Nom (S/P/Bld) Normal [facility] Comment on above: Order Comment: Speci men Type: BLOOD SPECIMENOrdering Facility: [facility] Address: [address] [place] [address] Result Comment: Test not indicated. Performed By: #### 5 195-3, 19141-1, 15612-6 ####[facility] LABCLIA [id number] [place] [address] [place] HIV 1+2 Ab+HIV1 p24 Ag IA Ql Non-Reactive Normal Nonreactive [facility] Comment on above: Order Comment: Speci men Type: BLOOD SPECIMENOrdering Facility: [facility] Address: [address] [place] [address] Performed By: #### 5 195-3, 85026-5, 20708-8 ####[facility] LABIA [id number] [place] [address] [place] HIV immunoassay testing algorithm interpretation (S/P/Bld) [Interp] Normal [facility] Comment on above: Order Comment: Speci men Type: BLOOD SPECIMENOrdering Facility: [facility] Address: [address] [place] [address] Result Comment: No e vidence of HIV-1 or HIV-2 infection. Should recent infection be suspected, repeat testing may be considered 2-3 weeks after this draw. Swift Rev. Code 3701.243(E): This information has been [...] or diagnoses. Performed By: #### 5 195-3, 68277-4, 05325-1 ####[facility] LABCLIA [id number] [address] OF [facility] HbA1c (Bld)on 08-15-2024 Average glucose Estimated from glycated hemoglobin (Bld) [Mass/Vol] 85 mg/dL Normal [facility] Comment on above: Order Comment: Nicole men Type: BLOOD SPECIMEN Ordering Facility: [facility] Address: [address] [place] [address] Result Comment: eAG: (Estimated average glucose) is a calculated value from HgbA1c and is collections representative of the average blood glucose level in the last 2-3 month period. Performed By: #### C RRSCN #### [facility] CLIA [id number] [address] [place] [address] HbA1c (Bld) [Mass fraction] 4.6 % Normal 4.3-5.6 [facility] Comment on above: Order Comment: Nicole [facility] Type: BLOOD SPECIMEN Ordering Facility: [facility] Address: [address] [place] [address] Result Comment: Amer ican Diabetes Association guidelines indicate that patients with HgbA1c in the range 5.7-6.4% are at increased risk for development of diabetes, and intervention by lifestyle modification may be beneficial. HgbA1c greater or equal to 6.5% is considered diagnostic of diabetes. Performed By: #### C RRSCN #### [facility] CLIA [id number] [address] [place] [address] [id number] PLUSon 08-15-2024 Cell-free DNA./Cell-free DNA.total Dosage of chromosome-specific cfDNA (cfDNA) [Molar fraction] 19% Normal [facility] Comment on above: Order Comment: Speci men Type: BLOOD SPECIMEN Ordering Facility: [facility] Address: [address] [place] [address] Performed By: #### C RRSCN #### [facility] CLIA [id number] [address] [place] [address] Chr 13+18+21+X+Y aneuploidy Dosage of chromosome-specific cfDNA Ql (cfDNA) Negative Normal [facility] Comment on above: Order Comment: Speci men Type: BLOOD SPECIMEN Ordering Facility: [facility] Address: [address] [place] [address] Performed By: #### C RRSCN #### [facility] CLIA [id number] [address] [place] [address] Chr 21 trisomy Dosage of chromosome-specific cfDNA Ql (cfDNA) Negative Normal [facility] Comment on above: Order Comment: Speci men Type: BLOOD SPECIMEN Ordering Facility: [facility] Address: [address] [place] [address] Performed By: #### C RRSCN #### [facility] CLIA [id number] [address] [place] [address] Chr X and Y aneuploidy risk Sequencing Ql (cfDNA) [Interp] Not detected Normal [facility] Comment on above: Order Comment: Speci men Type: BLOOD SPECIMEN Ordering Facility: [facility] Address: [address] [place] [address] Result Comment: Not Detected Not Detected Performed By: #### C RRSCN #### [facility] CLIA [id number] [address] [place] [address] Citation Bola (Reference lab test) Comment Normal [facility] Comment on above: Order Comment: Speci men Type: BLOOD SPECIMEN Ordering Facility: [facility] Address: [address] [place] [address] Result Comment: 1. Joshua ROSAS, et al. Jade Med. 2012;14(3):296-305. 2. Cristina CONCEPCION et al. Prenat Diag. 2013;33(6):591-597. 3. Landen Cerda, et al. Clin Chem. 2015 Apr;61(4):608-616. 4. Neyda ROSAS et al. Jade Med. 2011;13(11):913-920. 5. ACOG/SMFM Practice Bulletin No. 226, Jan 2020. Performed By: #### C RRSCN #### [facility] CLIA [id number] [address] [place] [id number] Gestational age Estimated from conception date Dooley Normal [facility] Comment on above: Order Comment: Nicole keyes Type: BLOOD SPECIMEN Ordering Facility: [facility] Address: [address] [place] [address] Performed By: #### C RRSCN #### [facility] CLIA [id number] [address] [place] [address] GESTATIONALAGE AGE > OR = 9W Yes Normal [facility] Comment on above: Order Comment: Nicole keyes Type: BLOOD SPECIMEN Ordering Facility: [facility] Address: [address] [place] [address] Performed By: #### C RRSCN #### [facility] CLIA [id number] [address] [place] [address] Laboratory comment Bola (Report) Comment Normal [facility] Comment on above: Order Comment: Nicole keyes Type: BLOOD SPECIMEN Ordering Facility: [facility] Address: [address] [place] [address] Result Comment: The MaterniT(R) 21 PLUS laboratory-developed [...] By: #### C RRSCN #### [facility] CLIA [id number] [address] [place], [place] [id number] business continuity planning director name Nom (Provider) Comment Normal [facility] Comment on above: Order Comment: Nicole keyes Type: BLOOD SPECIMEN Ordering Facility: [facility] Address: [address] [place] [address] Result Comment: This specimen showed an expected representation of chromosome 21, 18 and 13 material. Clinical correlation is suggested. Comment Dajuan Luna MD, PhD, Director, [employer] Performed By: #### C [facility] #### [facility] CLIA [id number] [address] [place] [address] LIMITATIONS OF THE TEST Comment Normal [facility] [place] Comment on above: Order Comment: Speci men Type: BLOOD SPECIMEN Ordering Facility: [facility] Address: [address] [place] [address] Result Comment: Ashley rogel the results of [...] By: #### C RRSCN #### [facility] CLIA [id number] [address] [place] [address] Monosomy X risk Dosage of chromosome-specific cfDNA Ql (Plasma cell-free+WBC DNA) [Interp] Not detected Normal [facility] Comment on above: Order Comment: Nicole keyes Type: BLOOD SPECIMEN Ordering Facility: [facility] Address: [address] [place] [address] Performed By: #### C RRSCN #### [facility] CLIA [id number] [address] [place] [address] NEGATIVE PREDICTIVE VALUE Note Normal [facility] Comment on above: Order Comment: Nicole keyes Type: BLOOD SPECIMEN Ordering Facility: [facility] Address: [address] [place] [address] Result Comment: The Negative Predictive Value (NPV) for trisomy 21, 18, and 13 is greater than 99%. The NPV for SCA and ESS cannot be calculated as SCA and ESS are only reported when an abnormality is detected. Performed By: #### C RRSCN #### [facility] CLIA [id number] [address] [place] [address] PERFORMANCE CHARACTERISTICS Note Normal [facility] Comment on above: Order Comment: Nicole keyes Type: BLOOD SPECIMEN Ordering Facility: [facility] Address: [address] [place] [address] Result Comment: ! Sex ! Accuracy: 99.4% [...] By: #### C RRSCN #### [facility] CLIA [id number] [address] [place] [address] POSITIVE PREDICTIVE VALUE N/A Normal [facility] Comment on above: Order Comment: Speci men Type: BLOOD SPECIMEN Ordering Facility: [facility] Address: [address] [place] [address] Performed By: #### C RRSCN #### [facility] CLIA [id number] [address] [place] [address] Reference Lab Test Method Comment Normal [facility] Comment on above: Order Comment: Speci men Type: BLOOD SPECIMEN Ordering Facility[facility] Address: [address] [place] [address] Result Comment: See Notes Circulating cell-free DNA [...] By: #### C RRSCN #### [facility] CLIA [id number] [address] [place] [address] Service comment (Unsp spec) [Interp] Comment Normal [facility] Comment on above: Order Comment: Speci men Type: BLOOD SPECIMEN Ordering Facility: [facility] Address: [address] [place] [address] Result Comment: See Notes [employer] is a subsidiary of [employer], using the brand [employer]. This test was developed and its performance characteristics determined by [employer]. It has not been cleared or approved by the Food and Drug Administration. This laboratory is certified under the Clinical Laboratory Improvement Amendments (CLIA) as qualified to perform high complexity clinical laboratory testing and accredited by the College of [employer] (CAP). If there is future clinical need for adding MaterniT GENOME testing, this specimen will be available until term. [facility] samples will not be retained beyond 60 days. [facility] patients will have to send a new sample for re-sequencing ([facility] Test Code: 676147). Performed By: #### C RRSCN #### [facility] CLIA [id number] [address] [place] [address] Sex Dosage of chromosome-specific cfDNA Nom (cfDNA) Comment Normal [facility] Comment on above: Order Comment: Speci men Type: BLOOD SPECIMEN Ordering Facility: [facility] Address: [address] [place] [address] Result Comment: Cons istent with Female Performed By: #### C RRSCN #### [facility] CLIA [id number] [address] [place] [address] Test performance information Bola (Unsp spec) Comment Normal [facility] Comment on above: Order Comment: Speci men Type: BLOOD SPECIMEN Ordering Facility: [facility] Address: [address] [place] [address] Result Comment: The performance characteristics of the MaterniT(R) 21 PLUS laboratory-developed test (LDT) have been determined in a clinical validation study with women at increased risk for chromosomal aneuploidy.[1-4] Performed By: #### C RRSCN #### [facility] CLIA [id number] [address] [place] [address] Trisomy 13 risk Dosage of chromosome-specific cfDNA Ql (cfDNA) [Interp] Negative Normal [facility] Comment on above: Order Comment: Speci men Type: BLOOD SPECIMEN Ordering Facility: [facility] Address: [address] [place] [address] Performed By: #### C RRSCN #### [facility] CLIA [id number] [address] [place], [place] [id number] Trisomy 18 risk Dosage of chromosome-specific cfDNA Ql (Plasma cell-free+WBC DNA) [Interp] Negative Normal [facility] Comment on above: Order Comment: Speci men Type: BLOOD SPECIMEN Ordering Facility: [facility] Address: [address] [place] [address] Performed By: #### C RRSCN #### [facility] CLIA [id number] [facility] [place] [address] RUBELLA IGG ANTIBODYon 08-15 RUBELLA IGG AB, QUAL Positive Normal Positive [facility] Comment on above: Order Comment: Speci men Type: BLOOD SPECIMEN Ordering Facility: [facility] Address: [address] [place] [address] Result Comment: The result suggests recent or past exposure to Rubella virus or history of Rubella vaccination. Positive result may also be seen due to presence of passively-transferred antibodies. Please correlate with patient's history. Performed By: #### R UBIGG #### [facility] CLIA [id number] [address] [place] [address] [place] Reagin and Treponema pallidu m IgG and IgM [Interp]on 08-15-2024 T. pallidum IgG+IgM IA Ql (S) Non-Reactive Normal Nonreactive [facility] Comment on above: Order Comment: Speci men Type: BLOOD SPECIMENOrdering Facility: [facility] Address: [address] [place] [address] Performed By: #### 5 195-3, 63687-4, 40828-4 ####[facility] LABCLIA [id number] [place] [address] [place] Reagin+T pallidum IgG+IgM Se rPl-Impon 08-15-2024 Reagin and Treponema pallidum IgG and IgM [Interp] Cannot exclude recent Treponemal infection if specimen collected within 7-10 days after appearance of suspect lesions or 2-3 weeks after an exposure. Clinical correlation is required. Normal [facility] Comment on above: Order Comment: Speci men Type: BLOOD SPECIMENOrdering Facility: [facility] Address: [address] [place] [address] Performed By: #### 5 195-3, 71976-6, 31482-5 ####[facility] LABCLIA [id number] [place] [address] [place] TYPE + SCREEN PRENATALon ABO O Normal [facility] Comment on above: Order Comment: Speci men Type: BLOOD SPECIMEN Ordering Facility: [facility] Address: [address] [place] [address] Performed By: #### C RRSCN #### [facility] CLIA [id number] [address] [place] [address] Rh Nom (Bld) Positive Normal [facility] Comment on above: Order Comment: Speci men Type: BLOOD SPECIMEN Ordering Facility: [facility] Address: [address] [place] [address] Performed By: #### C RRSCN #### [facility] CLIA [id number] [address] [place] [address] TYPE AND SCREEN EXPIRATION 08/18/2024 23:59 Normal [facility] Comment on above: Order Comment: Speci men Type: BLOOD SPECIMEN Ordering Facility: [facility] Address: [address] [place] [address] Performed By: #### C RRSCN #### [facility] CLIA [id number] [address] [place] [address] Bacteria Ur Culton Bacteria identified Cx Nom (U) CULTURE, URINE: No growth (<1,000 CFU/ml) Normal [facility] Comment on above: Performed By: #### 6 30-4 ####[facility] LABCLIA [id number] [place] [address] [place] C. trachomatis+N. gonorrhoea e DNA AD+probe Ql (Unsp spec)on 07-18-2024 C. trachomatis rRNA AD+probe Ql (Unsp spec) Not detected Normal Not detected [facility] Comment on above: Order Comment: Speci men Type: BLOOD SPECIMEN Ordering Facility: [facility] Address: [address] [place] [address] Performed By: #### C RRSCN #### [facility] CLIA [id number] [address] [place] [address] [place] [address] N. gonorrhoeae rRNA AD+probe Ql (Unsp spec) Not detected Normal Not detected [facility] Comment on above: Order Comment: Speci men Type: BLOOD SPECIMEN Ordering Facility: [facility] Address: [address] [place] [address] Performed By: #### C RRSCN #### [facility] CLIA [id number] [address] [place] [address] POC WELDER GAS ULTRASOUNDon 07-19-19 Indication Confirmation of intrauterine . [...] Read By: Yasmeen Vera CNP MATERNAL MEDICINE [facility] Radiology Study observation (narrative) [facility] TRICHOMONAS VAGINALIS NAATon 07-18-2024 T. vaginalis DNA AD+probe Ql (Unsp spec) Not detected Normal Not detected [facility] Comment on above: Order Comment: Speci men Type: BLOOD SPECIMEN Ordering Facility: [facility] Address: [address] [place] [address] Performed By: #### C RRSCN #### [facility] CLIA [id number] [address] [place] [address] [place] [address] [place] 07-15-2024 CNPN Telephone (OBGYWM) -------- SMITA NGUYEN ([id number]) 1995 F Date Time Provider Department 07/15/24 [...] Status:Closed by PAMELA COOPER on 07/15/24 Normal [facility] CNOVon 06-13-2024 CNOV Office Visit (OBGYWM) -------- SMITA NGUYEN ([id number]) 1995 F Date Time Provider Department 06/13/24 [...] Living0 SAB0 IAB0 Ectopic0 Multiple0 Live Births0 Organ Recovery Coordinator History LMP: 05/18/2024 (Exact Date), Having periods Age at Menarche: Age at First : Age at Menopause: Organ Recovery Coordinator History Comments: Sexual Activity: Yes; Male Contraception: [...] discussed with the Patient or Patient's Authorized Educational Administration Teacher. As applicable, any other physician, advance practice provider, medical student, or other health professional student that will be observing or involved in the sensitive examination for educational or training purposes was discussed with the Patient or Authorized Educational Administration Teacher. The Patient or Authorized Educational Administration Teacher has agreed to proceed with the sensitive [...] a psy (more content not included)... Normal [facility] US Pelv[place] 05-19-2024 Indication irregular menses, [...] Read By: Marcie Shields M.D. MATERNAL MEDICINE [facility] Pelvison 05-16-2024 Radiology Study observation (narrative) [facility] CNPN Telephone (OBGYWM) -------- SMITA NGUYEN ([id number]) 1995 F Date Time Provider Department 05/09/24 BRENNAN HEAD During your visit today, we recorded the following information about you: Allergies As of Date: 05/09/2024 Noted Allergy Reaction AZITHROMYCIN 10/30/2023 2 - Rash 4 - Hives 8 - GI Upset BUSPIRONE 01/29/2023 1 - Mental Status Change MORPHINE 05/02/2022 8 - GI Upset Date Reviewed: 05/07/2024 Reviewed by: Brennan Head APRN.[employer] - Fully Assessed Reason for Visit: Results [...] Encounter Status:Closed by BRENNAN HEAD on 05/14/24 [facility] Bacteria Ur Culton Bacteria identified Cx [...] , Intermediate >32 , Resistant >64 Abnormal [facility] Comment on above: Performed By: #### 6 30-4 ####[facility] LABCLIA [id number] [address] STATES OF [facility] CNOVon 05-07-2024 CNOV Office Visit (OBGYWRobert) -------- SMITA NGUYEN ([id number]) 1995 F Date Time Provider Department 05/07/24 10:45 AM BRENNAN HEAD During your visit today, we recorded the following information about you: Blood pressure Weight Last Period 110/60 76.2 kg 04/19/24 Brennan Head APRN.[employer]ORM FARMER 05/07/2024 11:12 AM Signed Hand Reamer offered: Patient declines. Smita Nguyen is a [...] L0 SAB0 IAB0 Ectopic0 Multiple0 Live Births0 Organ Recovery Coordinator History LMP: 03/22/2024 (Exact Date), Having periods Age at Menarche: Age at First : Age at Menopause: Organ Recovery Coordinator History Comments: Sexual Activity: Yes; Male Contraception: [...] or incontinence. + dysuria, odor Expanded ROS: CIVIL ENGINEERING DRAFTSPERSON: Negative for abnormal vaginal bleeding, abnormal vaginal [...] up to discuss preconception/fert ility Brennan Head APRN.WORM FARMER Medical Decision Making: Problems: Low: Acute, uncomplicated [...] Date Reviewed: 05/07/2024 Reviewed by: Brennan Head APRN.[facility] - Fully Assessed Reason for Visit: Vaginal Problem [117] Urinary Problem [252] Primary Visit Diagnosis:Dysuria [R30.0] Other Visit Diagnoses:Vaginal discharge [N89.8] Desire for [Z31.9] Irregular menstrual cycle [N92.6] Order(s):UA DIP, URINE (POC) [[id number]] Order #: [id number]. #:[id number] BACTERIAL CULTURE, URINE [SQURCUL] Order #: [id number]. #:[id number] nitrofurantoin monohydrate and macrocrystal (MACROBID) 100 mg capsuleTake 1 capsule by mouth two times a day for 7 days.Disp: 14 capsuleRfl: 0 PELVIC US I [1259820] Order #: [id number] (more content not included)... Normal [facility] UA DIP, URINE (POC)on 2024 BILIRUBIN UA (POCT) Negative Negative [facility] CLARITY UA (POCT) Clear [facility] COLOR UA (POCT) Yellow [facility] GLUCOSE UA (POCT) Negative Negative mg/dL [facility] Hemoglobin Ql (U) Moderate Abnormal Negative [facility] Interpretation and review of laboratory results Abnormal [facility] KETONE UA (POCT) Negative Negative mg/dL [facility] LEUKOCYTES UA (POCT) Moderate Abnormal Negative [facility] NITRITE UA (POCT) Negative Negative [facility] PH UA (POCT) 6.0 4.5 - 8.0 [facility] Protein Ql (U) Negative Negative mg/dL [facility] SPECIFIC GRAVITY UA (POCT) 1.020 1.005 - 1.030 [facility] UROBILINOGEN UA (POCT) 0.2 Normal E.U./d L [facility] Location:[facility], [address], [place], [id number] [place] [address] POINT OF CARE [facility] BACTERIAL VAGINOSIS NAATon 1 05-29-2023 Lactobacillus crispatus+gasseri+jense shakira + Gardnerella vaginalis + Atopobium vaginae rRNA AD+probe Ql (Vag fld) Not detected Normal Not detected [facility] Comment on above: Order Comment: Speci men Type: SWABOrdering Facility: [facility] Address: [address] [place] [address] Performed By: #### C VTV, BVAMP ####[facility] LABCLIA [id number] [place] [address] [place] MYRA/TRICHOMONAS NAATon 1 05-29-2023 C. glabrata RNA AD+probe Ql (Vag fld) Not detected Normal Not detected [facility] Comment on above: Order Comment: Speci men Type: SWABOrdering Facility: [facility] Address: [address] [place] [address] Performed By: #### C VTV, BVAMP ####[facility] LABCLIA [id number] [place] [address] [place] Myra sp DNA AD+probe Ql (Vag fld) Not detected Normal Not detected [facility] Comment on above: Order Comment: Speci men Type: SWABOrdering Facility: [facility] Address: [address] [place] [address] Result Comment: The Myra species group target includes C. albicans, C. tropicalis, C. parapsilosis, and C. dubliniensis. Performed By: #### C VTV, BVAMP ####[facility] LABCLIA [id number] [address] [place] T. vaginalis DNA AD+probe Ql (Unsp spec) Not detected Normal Not detected [facility] Comment on above: Order Comment: Speci men Type: SWABOrdering Facility: [facility] Address: [address] [place] [address] Performed By: #### C VTV, BVAMP ####[facility] LABCLIA [id number] [place] [address] [place] CNOVon 03-28-2024 CNOV Office Visit (OBGYWM) -------- SMITA NGUYEN ([id number]) 1995 F Date Time Provider Department 03/28/24 [...] L0 SAB0 IAB0 Ectopic0 Multiple0 Live Births0 Organ Recovery Coordinator History LMP: 03/22/2024 (Exact Date), Having periods Age at Menarche: Age at First : Age at Menopause: Organ Recovery Coordinator History Comments: Sexual Activity: Yes; Male Contraception: [...] discussed with the Patient or Patient's Authorized Educational Administration Teacher. As applicable, any other physician, advance practice provider, medical student, or other health professional student that will be observing or involved in the sensitive examination for educational or training purposes was discussed with the Patient or Authorized Educational Administration Teacher. The Patient or Authorized Educational Administration Teacher has agreed to proceed with the sensitive examination. (Sensitive examination includes inspection and/or palpation of the breasts, pelvis, prostate and anorectal regions). EXAM: BP 110/74 Wt 172 lb (78.0kg) LMP 03/22/2024 GENERAL: pleasant, female in no apparent distress HEENT: Normocephalic and atraumatic NECK: Supple and full range of motion PELVIC: external genitalia normal, normal Bartholin's glands, urethra, Maryhill's glands, no vulvar lesions, no cervical lesions, [...] [N89.8] Order(s):MYRA/T RICHOMONAS NAAT [SQCVTV] Order #: [id number]. #:[id number] BACTERIAL VAGINOSIS NAAT [SQBVAMP] Order #: [id number]. #:[id number] Prescriptions as of 03/28/2024 - progesterone micronized [...] - chol (more content not included)... Normal [facility] HIGH RISK HUMAN PAPILLOMA ANTONELLA (HPV), PCR FOR DETECTION AND GENOTYPINGOrdered By: Asha Mackenzie on 02-08-2024 HPV 16 Ag Ql (Unsp spec) Not detected Not detected [facility] HPV 18 Ag Ql (Unsp spec) Not detected Not detected [facility] HPV 31+33+35+39+45+51+52+56 +58+59+66+68 DNA AD+probe Ql (Cvx) Not detected Not detected [facility] Comment on above: High Risk HPV Other Type includes HPV types 31, 33, 35, 39, 45, 51, 52, 56, 58, 59, 66 and 68. Interpretation and review of laboratory results Normal [facility] This test was developed and its performance characteristics determined by [facility]'s [facility] ([facility] It has not been cleared or approved by the FDA. -[facility] is regulated under CLIA as qualified to perform high-complexity testing. This test is used for clinical purposes. It should not be regarded as investigational or for research. [facility] No Panel InformationOrdered By: Naz Salazar on 02-08-2024 [facility] PAP TESTOrdered By: Naz garcia on 02-08-2024 Case Report Gynecologic Cytology Report Case: [id number] Authorizing Provider: Camelia Herrera APRN.CNM Collected: 02/04/2024 03:18 PM Ordering Location: OB/Gynecology Received: 02/04/2024 04:29 PM First Screen: Naz Salazar, ERIKA, ASCP Specimen: Pap Test, ThinPrep, Cervix [facility] Clinical History Routine Exam [facility] Interpretation Negative [facility] LMP 01/15/2024 [facility] Pap Disclaimer [id number] VmbGFuZzEwMzNcZnRu YmpcdWMxIHtccnRmMV aet8QsL2EpCfPhMRia bnNpXGRlZmxhbmcxMD XkOZP5txSiYBIjOJcx LKAoAKnmCd0euHJfnD bqTyEoFKIrg8crotVF njbkyXh8t0ezJALwXp L8lMWlAKufV9pdajNm oEPbEUZxIFd4aK61EN KwjV8jwUEuDJzvyhYw TvR8IUggTQVgNoA8AN AhiSRzOLDrH9zfNLBk XGdyZWVuMFxibHVlMC Y0oVznu8H1lNAyjBMi dHtcZjBcZnMyMiBOb3 PyPAk1eLowR2ClHQBx HfT9qBOrAKDnOLmrEN TwVIBnbpR7vA89VFcn ilN6cMShj7Usa47jg6 05iU3plLUdDCC1YYLj ZUAitHJaCBLcIBA9DQ VflBUaD3iyUZXpOI8x cmdyMTgwMFxtYXJndD K9ABMguORvZ4WrQSFp NYorZRQwnmq0PoHsLn 3asVGtvLwkIBvjk1ta i9msaVFhLgo7TJXuTy MaBgelZSjdl4Tli4gp QLUpea4nTEB5mJLfaO nno7Z3qBNzBOUbhZBp viDiTQJgVtB9NYcaBW 1msa96RTTgZTC4xy1y bGNccGdicmRyaGVhZF tzB1TcTMXmm675RRYq C3EfFDVud8U2uuGiAf GkOLNmkKN9fdQ6ZVIs PJm6kWEywfM3xnEurD RxH1daeM8xPCKvGX4n bksmx1qsQYrlDSoxLY RfmBV0ryM9DIBhbWYb U7PckL8iFGAgWQbdVR Hifag4SbWfGq0waDQm eTcyMFxzYmtwYWdlXH BnbmNvbnRccGduZGVj XHBsYWluXHBsYWluXG YwXGZzMjRccWxccGxh pU6gZvCxFbEdNvrmIK 0nDRCsZ4zamVAaGEIx OHTuW3dlFxEehE7fkK vkXOdrvlF3UNTcVGMO NOLzZ74bDZGzvDBzSQ LwO7JrOH6phtbhoUUr jQQvc5MlS6McvmmzZU rvX0ZmM0AsXnMfUyJn h6FhuqQpFAKkowIjnv UqdAd0siNhJ1W3qkD2 wNDdNWLrcZIpU1HyOC 5pbmcgdGVzdHMsIGVt yUnin8k1aA2lOJVnYG BuZWVkIGZvciByZXNj cmVlbmluZyBhdCByZW QjvU2yefBiWKDfusUf cnZhbHMsIGFuZCBjbG zknQTipGQwf8GzNDcq mRlslv0hoMsjhK2vDd OzBqWxLbtuWP8kUEHt V8bnqKBjZDUsYMYjE5 utEcBagP5cpHasKMem tpKwMQCdtx11 [facility] PAP Boat Laborer Comment n2vkdKJrUSVoh9qsHB VmbGFuZzEwMzNcZnRu YmpcdWMxIHtccnRmMV hil3EiJ4HxDuAmEBee bnNpXGRlZmxhbmcxMD EoVED4hvViBALeWZbp GVZzYRbzKs3acFGbpF icWuYvLXXnl9tafoAR gadslOd1m4kbNPMxBq S0yLLxCHigD2fepdYe hGAaOMBsLQk4yW19RB MoyB9saJDlSJhiejCd WcU6RYsdTGMkDeO8WW HlpXEgAWKkD6yiPFJf XGdyZWVuMFxibHVlMC L7nYykd4D8bYBzjEZi dHtcZjBcZnMyMiBOb3 RtGHt1sRsvC6AnXUCa JrH1eIWzQEKnHNyhUX EdKDSksjK6pU29RRvk suM4pPCcw8Bgq96vg6 49cO9ffKFsFTJ9KWXn FQLykWZfOBFcAVC8WF LqiJCbL3lvDTKuDA8k cmdyMTgwMFxtYXJndD Q8NCTzcXBiV8BnFTJe FOioQIOvibm0GrOlIj 5gyIEhgGkuYPpzu8na l6ialFOhDgn6OYQaVz PtHcosUKssy7Dci1ia GJSevq7wQNJ9rXTbxU mby4L4yYLoBRLpdZLa pwWzREAeXmU1UVgbCJ 1gbr77HRTcYZM9sq2y bGNccGdicmRyaGVhZF orA4FdLHJkr436GASk Y1HqEBBdl4T3iuPwTv BfKDDdpWN6qrU5FDYz VGs4uIBvajA2zaQjmP GyW3ipvZ3qTUDcPE8j osxwr2qqNHrmWNmxQN KibJA3ybT7FNWtwLMx D2ZafG4iXDKjDJbyXQ Krqlb2SkKhSx5heCKb eTcyMFxzYmtwYWdlXH BnbmNvbnRccGduZGVj XHBsYWluXHBsYWluXG YwXGZzMjRccWxccGxh uJ9uTjYtOnStKloqOX 0nTEOjI6setSNjTUDi TBKoY0igOvLuaM5plQ mlVWshmtH2QCjuBPni nvJmvTBtiQ9lavEuPX MgYmVlbiBhbmFseXpl DCTlmXX3xFEiPAivwe RyXSLjZR2fB5uxNfDF fTC4EK2cBPLdOFZ4dG 7tNLBnIIPduQWqwV8w IGFuZCByZXZpZXcgc3 htyISgZOQ2vPjelLMr h1Zmo7AlYFYuNJGnJU HmhjP1c9F4RNdyNEJ1 WOl1KEOaroqqN3FjbU Yrs38rCHodllEiZOXn ZYTtFVNxp3EhMoGbJi 5roD95eT5wJIM3lC7o QTItZLMjvOIcoG5vOL MjLMpcS4IqGMBjxQPy ZHMgZnJvbSBldmVyeS BzbGlkZSBhcmUgcmV2 zUL9EGZyQfldLOSfaJ XqeMJciW2fkR2tuYJ9 LlxwbGFpblxmMVxmcz IyXGxhbmcxMDMzXGhp D9rbInHrENSnpVuzPM rdp3BaUEWkMZQfUtFb cGFyfX0= [facility] Performing Lab q0tvvEUuRIWkh9hfVA VmbGFuZzEwMzNcZnRu YmpcdWMxIHtccnRmMV xhbnNpXGRlZmxhbmcx BNEbMET0qlOgLMNbUU E3YYY5AyMqv0Y8PNDr XoYyQQSbZR3pgYntGS HxER6eOKJnF5djxV7r ycf1HdKxYOCuVoK6UX WildH5Uwu8KHMfWXue b7nxt1ZaMFCqZVg2rS glKuHvXCBcu5ipblDf ZmNoYXJzZXQwIEFyaW GfF667k2uzm5bwfoEi xWJ9KZDtFWX1ZLrxcx NloyR6SYztsACdGeL6 IDtccmVkMFxncmVlbj UzZup0YMLzV637OCR0 sAsmh0jjGLO0RPIwZG VaEsEkCo7urUOmV053 CPWxEKTZUYWffNc5VY MowfDkmoZxcWQZn462 U105l6khOWPnizOwfA dBcredy0omZ530OBUe cGVydzEyMjQwXHBhcG ShwHD2RSRgYL4jjlkb EHpfHBspUWGbocJ0DY MpsMLbA9DaLQRxZI0r qtiuUOA1SEkkRMXwFJ K1AfKsJZNlk9Mztka9 MzYvll6ysh47ICX6r0 MsuPziMZT4WDM6AcGj Jz1lrEOzYFJzDP6uFt BssIPpRXCfja32rJtc DLnzxjYkzW5fFvLiQD TlzLNwOCJfXD6rsAPq KPWrmT4ighlkYDYwWr JkcmhlYWRccGdicmRy Uc8xoOmqKAM1ZTpcI9 byhD8vGzB6DCvkC2qs zL3qRLu9AMgdmIF9SL HqjC2wAA3hifdbo9pw MTueMIorNSTxtqD2il G0XCVoyDYwG0EvfU5s VZLrMM1cpuzma2ydJO L6JMykAOFpYQZ3GeIe RLXfv1Ajhpj6OhBul9 ButMXfNWbiI29kx648 ICIpujHwS0kdzLLtou xwbGFpblxmMFxmczI0 XHFsXHBsYWluXGYxXG ZzMjJcbGFuZzEwMzNc aGljaFxmMVxkYmNoXG TuJNwnE3njMpWyZmLg MiBUZWNobmljYWwgY2 4beW7iMX81UABdsIMd lVKxtL0fxP3qyMZ5JZ NjcmVlbmluZyBwZXJm u2VoMQQeXBBfS8njbw BdFU6gVXNsjY9jWacc OTUwMCBFdWNsaWQgQX XxIWKKcMY1FWjksvZb Y6auKKPkGYJcQYIKVK nXKsNtYeKgNuV2AXd9 HISdci23i8hyqHPqMV NzdGVjZjIyMDAwXGFu i5vaTUZyqBWiYfYiOr NcZnRuYmpcdWMxXGRl FvXoc1ypo103qBJlb4 ifBJAnLoA4kSXaLAGf nLOcU026JCErGPeqb4 hjh7SqCGBtmDSwb6H9 XEAOehnzbXh9bBedY1 8lr7U4MeloH2rjRWGs KASrN6DlNG0mHDIaSx k2QIX9TCC4FZXaIBHy S2TkQB6wFWDamDVcHS l2u4xzzMpoVAMiKXZ4 q1ugSLccxvGeRK0axe 3lpOr8u1shijKyMZCa UIEnpYPCIJXiD2LkpR wdGo0snBo2nEvoUavv SHT6Zni3WG2ipn80yd j4hJuaOJOjiwmyBpE8 GBpkINPfixmhBKv5YC hrJJOnaDT9MDPipQRu S2AqAAntBS3sdmk2VD H8OKnvVRXaTbS5WNZh aGVhZGVyeTcyMFxmb2 94UHS1JbSnQQ2yH5Or c2D4lV3khUAkKNIlvK PnTzTfJGUmuq7ubAKu QBxui2YmIYQ7bgI0jR McyRNaPHVvQH74Tgvi c7VlIodlu1MxQ65bfB M6PGvml9ftQU1kYdE3 hlKuQVfji4vwlW5eKg H8EXpyLY8jOH2mQOSx qD4sjhiwQBKvEsApgu ysAXFeuMjxltXcJh2t gXawXFD9WRarS2dxpT 8lFxU3WSubL6ztfR4j YGk3TEdkxKW5DGEqtR 9lVT6flkshi2ckLSzk PKtdUAXzazG2iaWvAC JsgGTfX7EbmR1xJJBp YD4gbcqae7rtASN1OM esLDJlNYI4AgZiQHMu f8Qphwe0IkTxc8NcvU HuPHxnQ60gg059RGXi rbZpK3rpaAFwwjbmoH MuzuveCHkmkbA6SXUl XHBsYWluXGYxXGZzMj BcbGFuZzEwMzNcaGlj aFxmMVxkYmNoXGYxXG izM5zyGjFbEpUoMZPW oEGeiu9gzLxhGBrcaZ XwzBYdpMF9hJ5yDENh hhJjwj9wFMJibIZLaA W7MIvitmBhM6poqgmq FUB0PRSoYXC7G8mpJN BBdmUsIENsZXZlbGFu GPCMADK7QGR8ZFKdWO UPYBJmTIF9VHM4VKWe OTRccGFyXHBhclxwYX JkXHBsYWluXGYwXGZz YxZuzIrxaN9bKhQxEa ZeQHbvEU3iAJQjY1zt iQPhYCOtAFNkA7ihBf TdpA1ifLqpIMdaKtLt ZnMyMFxsdHJjaCBMYW KfroB0f3T5AZfxcDOa blxmMVxmczIwXGxhbm zsZMUkQTioD5elCwRc UFGiyUgjTSyps5PbIK YxXGZzMjAgRGlyZWN0 b2V2EHpkcTVkodNPHg REDC5khNRkuijuYL5D LlxwbGFpblxmMVxmcz IyXGxhbmcxMDMzXGhp Z8lrTuYiSFEtdTzwOU xpy0XbSHMlXDDtUwCy cGFyfX0= [facility] Specimen Adequacy Satisfactory for interpretation. [facility] BACTERIAL VAGINOSIS NAATon 1 04-06-2023 Interpretation and review of laboratory results Abnormal [facility] Lactobacillus crispatus+gasseri+jense shakira + Gardnerella vaginalis + Atopobium vaginae rRNA AD+probe Ql (Vag fld) Positive Abnormal Negative for bacterial vaginosis [facility] MYRA/TRICHOMONAS NAATon 1 04-06-2023 C. glabrata RNA AD+probe Ql (Vag fld) Negative Negative for Myra glabrata [facility] Myra sp DNA AD+probe Ql (Vag fld) Negative Negative for Myra species [facility] Interpretation and review of laboratory results Normal [facility] T. vaginalis DNA AD+probe Ql (Unsp spec) Negative Negative for Trichomonas vaginalis by amplification [facility] ECG 12-LEADon 11-20-2022 ECG 12-LEAD IMPRESSION: Sinus rhythm Electronically Signed On 11-19-2022 23:58:23 EDT by Lukas Darling [facility] ED Nursing Noteon 11-20-2022 ED Nursing Note Pt was discharged without her prescriptions. Voice message was left for pt and her spouse regarding prescriptions. Cinthia Angulo RN 11/20/[address] [facility] ED Nursing Note In 45 getting dressed for discharge Barbara Beck 11/20/[address] [facility] ED Nursing Note Dr. Donald at bedside Barbara Beck 11/20/[address] [facility] ED Nursing Note Pt resting in room. Respirations even and non labored. at bedside. Cinthia Angulo RN 11/20/[address] [facility] ED Nursing Note Pt out to restroom to provide urine sample Barbara Beck 11/19/[address] [facility] ED Nursing Note Sophia WADSWORTH at bedside to medicate Barbara Beck 11/19/[address] [facility] ED Nursing Note Patient given bagged lunch from [employer] Frances Parks, EMT 11/19/[address] [facility] ED Nursing Note Patient has 3 bags of belongings. MILES Elena 11/19/[address] [facility] ED Nursing Note Protective services at patient bedside offering patient cup of water. MILES Elena 11/19/[address] [facility] ED Nursing Note Physician is at patient bedside MILES Elena 11/19/[address] [facility] ED Nursing Note Patient has 3 bag of belongings. Patient was wanded and changed into two gowns. Jovimalcolmmary Jai Parks, EMT 11/19/22 2204 Normal [facility] Laboratory - Drug toxicology Ordered By: Vikash Borden on 11-20-2022 Amphetamines Screen method >1000 ng/mL Ql (U) Negative [facility] Barbiturates Screen method >200 ng/mL Ql (U) Negative [facility] Benzodiazepines Ql (U) Positive [facility] Methadone Screen Ql (U) Negative [facility] Opiates Screen Ql (U) Negative [facility] oxyCODONE Ql (U) Negative [facility]th Phencyclidine Ql (U) Negative [facility] No Panel InformationOrdered By: Vikash Borden on 11-20-2022 COCAINE METAB. SCREEN Negative [facility] The expected value for all of [...] is needed, request confirmation under separate order. [facility] .Auto Diffon 11-19-2022 Basophil, Absolute 0.1 10 3/mcL Normal 0.0-0.2 [facility] ([place]) Comment on above: Performed By: #### C AZUL MALDONADO MDW, ADIFF, GFR, BMP, ALC #### [address] [address] Basophils/100 WBC (Bld) 0.6 % Normal 0.0-2.5 [facility] ([place]) Comment on above: Performed By: #### C AZUL MALDONADO MDW, ADIFF, GFR, BMP, ALC #### [address] [address] Eosinophil, Absolute 0.1 10 3/mcL Normal 0.0-0.4 [facility] ([place]) Comment on above: Performed By: #### C BC, ANEU, MDW, ADIFF, GFR, BMP, ALC #### [address] [address] Eosinophils/100 WBC (Bld) 0.6 % Normal 0.0-7.0 [facility] ([place]) Comment on above: Performed By: #### C BC, ANEU, MDW, ADIFF, GFR, BMP, ALC #### [address] [address] Lymphocyte, Absolute 3.1 10 3/mcL Normal 0.8-3.9 [facility] ([place]) Comment on above: Performed By: #### C BC, ANEU, MDW, ADIFF, GFR, BMP, ALC #### [address] [address] Lymphocytes/100 WBC (Bld) 32.1 % Normal 10.0-50.0 [facility] ([place]) Comment on above: Performed By: #### C BC, ANEU, MDW, ADIFF, GFR, BMP, ALC #### [address] [address] Monocyte, Absolute 0.8 10 3/mcL Normal 0.2-1.0 [facility] ([place]) Comment on above: Performed By: #### C BC, ANEU, MDW, ADIFF, GFR, BMP, ALC #### [address] [address] Monocytes/100 WBC (Bld) 8.5 % Normal 1.7-13.0 [facility] ([place]) Comment on above: Performed By: #### C BC, ANEU, MDW, ADIFF, GFR, BMP, ALC #### [address] [address] Neutrophils/100 WBC (Bld) 58.2 % Normal 37.0-80.0 [facility] ([place]) Comment on above: Performed By: #### C BC, ANEU, MDW, ADIFF, GFR, BMP, ALC #### [address] [address] .GFRon 08-20-2023 GFR 79 ml/min/1.73sqm Normal [facility] ([place]) Comment on above: Result Comment: GFR Population [...] By: #### G FR, LIPID, CMP #### [address] [address] GFR Non- 65 ml/min/1.73sqm Normal [facility] ([place]) Comment on above: Result Comment: GFR Population [...] By: #### G FR, LIPID, CMP #### [address] [address] .MDWon 11-19-2022 Monocyte Distribution Width 16.13 Normal 0.00-20.00 [facility] ([place]) Comment on above: Result Comment: For ED adult patients suspected of sepsis, MDW<=20.0 does not rule out sepsis or risk of sepsis Performed By: #### C AZUL MALDONADO MDW, ADIFF, GFR, BMP, ALC #### [address] [address] .NEUABSon 11-19-2022 Neutrophil, Absolute 5.6 10 3/mcL Normal 2.9-6.2 [facility] ([place]) Comment on above: Performed By: #### C BC, ANEU, MDW, ADIFF, GFR, BMP, ALC #### [place] [id number] Loni 11-19-2022 Ethanol Level <3 Normal 0-3 [facility] ([place]) Comment on above: Performed By: #### G FR, LIPID, CMP #### [place] [id number] BMPon 11-19-2022 BUN/Creatinine Ratio 14 ratio Normal 7-27 [facility] ([place]) Comment on above: Performed By: #### G FR, LIPID, CMP #### [address] [address] Calcium [Mass/Vol] 9.2 mg/dL Normal 8.4-10.2 [facility] ([place]) Comment on above: Performed By: #### G FR, LIPID, CMP #### [address] [address] Chloride [Moles/Vol] 101 mmol/L Normal 98-107 [facility] ([place]) Comment on above: Performed By: #### G FR, LIPID, CMP #### [address] [address] CO2 [Moles/Vol] 28 mmol/L Normal 22-29 [facility] ([place]) Comment on above: Performed By: #### G FR, LIPID, CMP #### [address] [address] Creatinine [Mass/Vol] 1.01 mg/dL Normal 0.55-1.02 [facility] ([place]) Comment on above: Performed By: #### G FR, LIPID, CMP #### [address] [address] Electrolyte Balance 9.0 mEq/L Normal 4.0-15.0 [facility] ([place]) Comment on above: Performed By: #### G FR, LIPID, CMP #### [address] [address] Glucose [Mass/Vol] 102 mg/dL Normal 70-105 [facility] ([place]) Comment on above: Performed By: #### G FR, LIPID, CMP #### [address] [address] Potassium [Moles/Vol] 3.4 mmol/L Low 3.5-5.1 [facility] ([place] Comment on above: Performed By: #### G FR, LIPID, CMP #### [address] [address] Sodium [Moles/Vol] 138 mmol/L Normal 136-145 [facility] ([place]) Comment on above: Performed By: #### Larry FR, LIPID, CMP #### [address] [address] Urea nitrogen [Mass/Vol] 14 mg/dL Normal 7-18 [facility] ([place]) Comment on above: Performed By: #### G FR, LIPID, CMP #### [address] [address] CBCon 11-19-2022 Erythrocyte distribution width (RBC) [Ratio] 12.6 % Normal 11.5-14.5 [facility] ([place] Comment on above: Performed By: #### C AZUL MALDONADO MDW, ADISMAEL, GFR, BMP, ALC #### [address] [address] Hematocrit (Bld) [Volume fraction] 39.0 % Normal 37.0-47.0 [facility] ([place] Comment on above: Performed By: #### C AZUL MALDONADO, LAMBERT, ADISMAEL, GFR, BMP, ALC #### [address] [address] Hgb 13.8 G/dL Normal 12.0-16.0 [facility] ([place]) Comment on above: Performed By: #### C ERICA, AZUL, W, ADIFF, GFR, BMP, ALC #### [address] [address] MCH (RBC) [Entitic mass] 31.2 pg Normal 27.0-31.2 [facility] ([place] Comment on above: Performed By: #### C ERICA, AZUL, W, ADIFF, GFR, BMP, ALC #### [address] [address] MCHC 35.4 G/dL Normal 33.0-37.0 [facility] ([place] Comment on above: Performed By: #### C ERICA, AZUL, W, ADIFF, GFR, BMP, ALC #### [address] [address] MCV (RBC) [Entitic vol] 88.2 fL Normal 80.0-94.0 [facility] ([place]) Comment on above: Performed By: #### C ERICA, AZUL, W, ADIFF, GFR, BMP, ALC #### [address] [address] Platelet 274 10 3/mcL Normal 130-400 [facility] ([place]) Comment on above: Performed By: #### C ERICA, AZLU, W, ADIFF, GFR, BMP, ALC #### [address] [address] Platelet mean volume (Bld) [Entitic vol] 8.2 fL Normal 7.4-10.4 [facility] ([place]) Comment on above: Performed By: #### C ERICA, AZUL, W, ADIFF, GFR, BMP, ALC #### [place] [phone] RBC 4.42 10 6/mcL Normal 4.20-5.40 [facility] ([place]) Comment on above: Performed By: #### C ERICA, AZUL, W, ADIFF, GFR, BMP, ALC #### [place] [phone] WBC 9.7 10 3/mcL Normal 4.6-10.8 [facility] ([place]) Comment on above: Performed By: #### C BC, AZUL, MDW, ADISMAEL, GFR, BMP, ALC #### [facility] [address], [place] [address] CBC W Auto Differential pane l (Bld)Ordered [...] [#/Vol] 5.8 10*3/uL 1.8 - 7.0 10*3/uL [facility] Neutrophils/100 WBC (Bld) 56.9 % 40.0 - 80.0 % [facility] Nucleated RBC/100 WBC (Bld) [Ratio] 0.1 % [facility] Platelet mean volume (Bld) [Entitic vol] 8.7 fL 7.4 - 12.4 fL [facility] Platelets (Bld) [#/Vol] 283 10*3/uL 140 - 440 10*3/uL [facility] RBC (Bld) [#/Vol] 4.55 10*6/uL 3.8 - 5.20 10*6/uL [facility] WBC (Bld) [#/Vol] 10.1 10*3/uL 3.6 - 10.7 10*3/uL [facility] [id number] 11-19-2022 SARS-CoV-2 (COVID-19) RNA AD+probe Ql (Unsp spec) Negative Normal Negative [facility] ([place]) Comment on above: Performed By: #### C OVD19 #### [address] [address] SARS-CoV-2 (COVID-19) RNA AD+probe Ql (Unsp spec) Normal [facility] ([place]) Comment on above: Result Comment: Nega tive [...] Performed By: #### C OVD19 #### [place] [address] Comprehensive metabolic 1998 panelon 11-19-2022 Albumin [Mass/Vol] 5.0 g/dL 3.5 - 5.0 g/dL [facility] ALP [Catalytic activity/Vol] 66 U/L 38 - 126 U/L [facility] ALT [Catalytic activity/Vol] 21 U/L 0 - 34 U/L [facility] Anion gap [Moles/Vol] 13 mmol/L 3 - 13 mmol/L [facility] AST [Catalytic activity/Vol] 28 U/L 15 - 46 U/L [facility] Bilirubin [Mass/Vol] 0.7 mg/dL 0.2 - 1 .3 mg/dL [facility] Calcium [Mass/Vol] 8.9 mg/dL 8.4 - 10. 4 mg/dL [facility] Chloride [Moles/Vol] 104 mmol/L 98 - 10 7 mmol/L [facility] CO2 [Moles/Vol] 20 mmol/L Low 22 - 30 mmol/L [facility] Creatinine [Mass/Vol] 0.80 mg/dL 0.52 - 1.04 mg/dL [facility] GFR/1.73 sq M.predicted MDRD (S/P/Bld) [Vol rate/Area] - PINF [facility] Comment on above: Calculation based on the Chronic Kidney Disease Epidemiology Collaboration (CKD-EPI) equation refit without adjustment for race Glucose [Mass/Vol] 109 mg/dL High 70 - 100 mg/dL [facility] Interpretation and review of laboratory results Abnormal [facility] Potassium [Moles/Vol] 3.7 mmol/L 3.5 - 5.1 mmol/L [facility] Protein [Mass/Vol] 7.9 g/dL 6.3 - 8.2 g/dL [facility] Sodium [Moles/Vol] 136 mmol/L 135 - 145 mmol/L [facility] Urea nitrogen [Mass/Vol] 13 mg/dL 7 - 17 mg/dL [facility] ED Nursing Noteon 11-19-2022 ED Nursing Note EKG at patient bedside Frances Parks, EMT 11/19/22 [id number] Normal [facility] ED Nursing Note Registration at patient bedside Frances Parks, EMT 11/19/222155 [facility] ED Nursing Note Registration at patient bedside Frances Garcia Parks, EMT 11/19/222135 [facility] ED Nursing Note Dr. Darling at patient bedside Frances Garcia Kasey, EMT 11/19/222131 [facility] ED Nursing Note Physician at patient bedside Frances Jai Parks, EMT 11/19/222115 [facility] ED Nursing Note Pt changed into gowns. Protective Services secured pt's belongings. Pt was wanded. Cinthia Angulo RN 11/19/222110 [facility] ED Provider Noteon ED Provider Note EMERGENCY [...] Patient states that she was seen at [facility] last night for similar issues and was [...] Blood, Urine (more content not included)... Normal [facility] ED Provider Note Emergency Department Encounter [...] [employer] Lukas Darling MD 11/19/222138 Normal [facility] Ethanol (Bld) [Mass/Vol]on 0 11-19-2022 Ethanol [Mass/Vol] g/dL 0.000 - 0 .010 g/dL [facility] Interpretation and review of laboratory results Normal [facility] Laboratory - Chemistry and C hemistry - challengeOrdered By: Zoë Post on 11-19-2022 Beta HCG ( test) Ql Negative Negative [facility] Comment on above: Please note: Very di lute urine specimens, as indicated by a low specific gravity, may not contain collections representative levels of hCG. If is still suspected, a first morning urine specimen should be collected 48 hours later and tested. Beta HCG ( test) Ql (U) is the most common reason for HCG in urine, although choriocarcinoma, hydatidiform mole, and certain nontrophoblastic malignancies also result in detectable urinary HCG levels. Sensitivity = 20mIU/mL. [facility] Laboratory - Microbiology an d Antimicrobial susceptibilityOrdered By: Bryanna Velasquez on 11-19-2022 SARS-CoV-2 (COVID-19) Ag IA.rapid Ql (Resp) Negative Negative [facility] Comment on above: A negative result do es not rule out the possibility of SARS-CoV-2 infection. NAAT-based methods should be considered for symptomatic patients presenting greater than seven days after onset of symptoms. Method: Lateral flow immunoassay. Fact sheets for healthcare providers and patients can be found at the following sites: https://www.fda.gov/media/301142/download https://www.[employer].gov/media/054356/download No Panel InformationOrdered By: Zoë Post on 11-19-2022 [facility] No Panel Informationon 11-19 P [place] 9 degrees [facility] TX Interval 135 ms [facility] QRS [place] 64 degrees [facility] QRSD Interval 81 ms [facility] QT Interval 352 ms [facility] QTC Interval 446 ms [facility] T Wave [place] -21 degrees [facility] Sinus rhythm Electronically Signed On 11-19-2022 23:58:23 EDT by Lukas Darling CV Lukas Mccormack MD - 11/19/2022 IMPRESSION: Sinus rhythm Electronically Signed On 11-19-2022 23:58:23 EDT by Lukas Darling [facility] [place] PREGUon 11-19-2022 HCG ( test) Ql (U) Negative Normal [facility] ([place]) Comment on above: Performed By: #### T OXSC, PREGU #### [address] [address] test (u) int Not detected Invalid Interpretation Code [facility] ([place]) Comment on above: Performed By: #### T OXSC, PREGU #### [place] [address] [address] SARS-CoV-2 (COVID-19) Ag IA. rapid Ql (Resp)Ordered By: Bryanna Velasquez on 11-19-2022 Interpretation and review of laboratory results [facility] TOXSCon 11-19-2022 U Ampheta (AO) Negative [facility] ([place]) Comment on above: Performed By: #### T OXSC, PREGU #### [address] [address] U Sophia (AO) Negative [facility] ([place]) Comment on above: Performed By: #### T OXSC, PREGU #### [place]isca [address] [address] U Raymond (AO) Positive [facility] ([place]) Comment on above: Performed By: #### T OXSC, PREGU #### [place]a [address] [address] U Cannab (AO) Negative [facility] ([place]) Comment on above: Performed By: #### T OXSC, PREGU #### [address] [address] U Cocaine (AO) Negative [facility] ([place]) Comment on above: Performed By: #### T OXSC, PREGU #### [address] [address] U Methadone (AO) Negative [facility] ([place]) Comment on above: Performed By: #### T OXSC, PREGU #### [address] [address] U PCP (AO) Negative [facility] ([place]) Comment on above: Performed By: #### T OXSC, PREGU #### [address] [address] U TCA (AO) Positive [facility] ([place]) Comment on above: Performed By: #### T OXSC, PREGU #### [address] [address] Urine Opiates (AO) Negative [facility] ([place]) Comment on above: Performed By: #### T OXSC, PREGU #### [place] [address] Urinalysis complete panel (U )Ordered By: Blanche Moody on 11-19-2022 Bilirubin Ql (U) Negative Negative mg/dL [facility] Clarity (U) Clear Clear [facility] Color (U) Light Yellow Lt. Yellow [facility] Glucose Ql (U) Normal Normal (<70) mg/dL [facility] Hemoglobin Ql (U) Negative Negative mg/dL [facility] Interpretation and review of laboratory results Abnormal [facility] Ketones (U) [Mass/Vol] 100 mg/dL Abnormal Negative [facility] Leukocyte esterase Test strip Ql (U) Negative Negative Skip/uL [facility] Nitrite Ql (U) Negative Negative [facility] th pH (U) 6.5 [pH] 5.0 - 8.0 pH [facility] Protein (U) [Mass/Vol] Negative Negative mg/d L [facility] Specific gravity (U) [Rel density] 1.020 1.005 - 1.030 [facility] Urobilinogen (U) [Mass/Vol] Normal Normal (0-1) mg/dL [facility] Vital signson 11-19-2022 Heart rate 96 /min bpm [facility] LABORATORYOrdered By: Javier Collins on 11-18-2022 [...] SS .GFRon 06-30-2022 GFR 81 ml/min/1.73sqm Normal [facility] ([place]) Comment on above: Result Comment: GFR Population [...] #### G FR, LIPID, CMP #### [place] [address] [address] GFR Non- 67 ml/min/1.73sqm Normal [facility] ([place] Comment on above: Result Comment: GFR Population [...] By: #### G FR, LIPID, CMP #### [address] [address] CMPon 06-30-2022 Albumin Level 4.1 G/dL Normal 3.5-5.0 [facility] ([place]) Comment on above: Performed By: #### G FR, LIPID, CMP #### [address] [address] Albumin/Globulin [Mass ratio] 1.4 {ratio} Normal 1.1-2.5 [facility] ([place] Comment on above: Performed By: #### Larry FR, LIPID, CMP #### [address] [address] ALP [Catalytic activity/Vol] 73 U/L Normal 40-135 [facility] ([place] Comment on above: Performed By: #### Larry FR, LIPID, CMP #### [address] [address] ALT [Catalytic activity/Vol] 25 U/L Normal 14-59 [facility] ([place] Comment on above: Performed By: #### G FR, LIPID, CMP #### [address] [address] AST [Catalytic activity/Vol] 18 U/L Normal 10-40 [facility] ([place] Comment on above: Performed By: #### G FR, LIPID, CMP #### [address] [address] Bili Total 0.6 mg/dL Normal 0.2-1.0 [facility] ([place] Comment on above: Result Comment: Use of this assay is not recommended for patients undergoing treatment with eltrombopag due to the potential for falsely elevated results. Performed By: #### G FR, LIPID, CMP #### [address] [address] BUN/Creatinine Ratio 12 ratio Normal 7-27 [facility] ([place]) Comment on above: Performed By: #### G FR, LIPID, CMP #### [address] [address] Calcium [Mass/Vol] 8.9 mg/dL Normal 8.4-10.2 [facility] ([place]) Comment on above: Performed By: #### G FR, LIPID, CMP #### [address] [address] Chloride [Moles/Vol] 102 mmol/L Normal 98-107 [facility] ([place]) Comment on above: Performed By: #### G FR, LIPID, CMP #### [address] [address] CO2 [Moles/Vol] 31 mmol/L High 22-29 [facility] ([place]) Comment on above: Performed By: #### G FR, LIPID, CMP #### [address] [address] Creatinine [Mass/Vol] 0.98 mg/dL Normal 0.55-1.02 [facility] ([place] Comment on above: Performed By: #### G FR, LIPID, CMP #### [address] [address] Electrolyte Balance 7.0 mEq/L Normal 4.0-15.0 [facility] ([place]) Comment on above: Performed By: #### G FR, LIPID, CMP #### [address] [address] Globulin 2.9 G/dL Normal [facility] ([place] Comment on above: Performed By: #### G FR, LIPID, CMP #### [address] [address] Glucose [Mass/Vol] 88 mg/dL Normal 70-105 [facility] ([place] Comment on above: Performed By: #### G FR, LIPID, CMP #### [address] [address] Potassium [Moles/Vol] 4.6 mmol/L Normal 3.5-5.1 [facility] ([place] Comment on above: Performed By: #### G FR, LIPID, CMP #### [address] [address] Sodium [Moles/Vol] 140 mmol/L Normal 136-145 [facility] ([place] Comment on above: Performed By: #### G FR, LIPID, CMP #### [place] [address] [place], [place] [address] Total Protein 7.0 G/dL Normal 6.4-8.2 [facility] ([place] Comment on above: Performed By: #### G FR, LIPID, CMP #### [place] [address] [place], [place] [address] Urea nitrogen [Mass/Vol] 12 mg/dL Normal 7-18 [facility] ([place] Comment on above: Performed By: #### G FR, LIPID, CMP #### [place] [address] [place], [place] [address] LABORATORYOrdered By: SYSTEM SYSTEM on 06-30-2022 Albumin [...] [Mass/Vol] 237 mg/dL High 0-200 [facility] ([place]) Comment on above: Result Comment: Chol esterol Reference Interval: Less than 200 Desirable 200-239 Borderline high risk 240 and above High risk Performed By: #### G FR, LIPID, CMP #### [address] [address] Cholesterol in HDL [Mass/Vol] 82 mg/dL High 40-60 [facility] ([place] Comment on above: Performed By: #### G FR, LIPID, CMP #### [place] [address] [place], [place] [address] Cholesterol in LDL [Mass/Vol] 150 mg/dL High 0-130 [facility] ([place] Comment on above: Performed By: #### G FR, LIPID, CMP #### [address] [address] Triglyceride [Mass/Vol] 26 mg/dL Normal 0-150 [facility] ([place]) Comment on above: Result Comment: Trig lyceride Reference Interval: Less than 150 Normal 150-199 Borderline high risk 200-499 High risk 500 or higher Very high risk Performed By: #### G FR, LIPID, CMP #### [address] [address] .Auto Diffon 06-09-2022 Basophil, Absolute 0.1 10 3/mcL Normal 0.0-0.2 [facility] ([place] Comment on above: Performed By: #### G FR, LIPID, CMP #### [address] [address] Basophils/100 WBC (Bld) 0.8 % Normal 0.0-2.5 [facility] ([place] Comment on above: Performed By: #### G FR, LIPID, CMP #### [address] [address] Eosinophil, Absolute 0.1 10 3/mcL Normal 0.0-0.4 [facility] ([place] Comment on above: Performed By: #### G FR, LIPID, CMP #### [address] [address] Eosinophils/100 WBC (Bld) 1.5 % Normal 0.0-7.0 [facility] ([place] Comment on above: Performed By: #### G FR, LIPID, CMP #### [address] [address] Lymphocyte, Absolute 2.3 10 3/mcL Normal 0.8-3.9 [facility] ([place] Comment on above: Performed By: #### G FR, LIPID, CMP #### [address] [address] Lymphocytes/100 WBC (Bld) 31.4 % Normal 10.0-50.0 [facility] ([place] Comment on above: Performed By: #### G FR, LIPID, CMP #### [address] [address] Monocyte, Absolute 0.7 10 3/mcL Normal 0.2-1.0 [facility] ([place] Comment on above: Performed By: #### G FR, LIPID, CMP #### [address] [address] Monocytes/100 WBC (Bld) 9.7 % Normal 1.7-13.0 [facility] ([place]) Comment on above: Performed By: #### G FR, LIPID, CMP #### [address] [address] Neutrophils/100 WBC (Bld) 56.6 % Normal 37.0-80.0 [facility] ([place] Comment on above: Performed By: #### G FR, LIPID, CMP #### [address] [address] .NEUABSon 06-09-2022 Neutrophil, Absolute 4.2 10 3/mcL Normal 2.9-6.2 [facility] ([place] Comment on above: Performed By: #### G FR, LIPID, CMP #### [address] [address] CBCon 06-09-2022 Erythrocyte distribution width (RBC) [Ratio] 13.5 % Normal 11.5-14.5 [facility] ([place] Comment on above: Order Comment: PLEAS E do STAT Performed By: #### G FR, LIPID, CMP #### [address] [address] Hematocrit (Bld) [Volume fraction] 42.8 % Normal 37.0-47.0 [facility] ([place] Comment on above: Order Comment: PLEAS E do STAT Performed By: #### G FR, LIPID, CMP #### [address] [address] Hgb 14.7 G/dL Normal 12.0-16.0 [facility] ([place] Comment on above: Order Comment: PLEAS E do STAT Performed By: #### G FR, LIPID, CMP #### [address] [address] MCH (RBC) [Entitic mass] 30.5 pg Normal 27.0-31.2 [facility] ([place] Comment on above: Order Comment: PLEAS E do STAT Performed By: #### G FR, LIPID, CMP #### [address] [address] MCHC 34.4 G/dL Normal 33.0-37.0 [facility] ([place] Comment on above: Order Comment: PLEAS E do STAT Performed By: #### G FR, LIPID, CMP #### [address] [address] MCV (RBC) [Entitic vol] 88.6 fL Normal 80.0-94.0 [facility] ([place]) Comment on above: Order Comment: PLEAS E do STAT Performed By: #### G FR, LIPID, CMP #### [address] [address] Platelet 299 10 3/mcL Normal 130-400 [facility] ([place] Comment on above: Order Comment: PLEAS E do STAT Performed By: #### G FR, LIPID, CMP #### [address] [address] Platelet mean volume (Bld) [Entitic vol] 8.1 fL Normal 7.4-10.4 [facility] ([place] Comment on above: Order Comment: PLEAS E do STAT Performed By: #### G FR, LIPID, CMP #### [address] [address] RBC 4.82 10 6/mcL Normal 4.20-5.40 [facility] ([place] Comment on above: Order Comment: PLEAS E do STAT Performed By: #### G FR, LIPID, CMP #### [address] [address] WBC 7.4 10 3/mcL Normal 4.6-10.8 [facility] ([place] Comment on above: Order Comment: PLEAS E do STAT Performed By: #### G FR, LIPID, CMP #### [place] [address] LABORATORYOrdered By: Javier Landers on 06-09-2022 Basophil, [...] AO Workflow SS PELVIC US WHIon 05-09-2022 [facility] Lab Report: Comprehensive Va tabolic Profilon 10-27-2016 Albumin mass conc 4.0 g/dL 3.4-5.0 [facility] Work Phone: Albumin/Globulin mass ratio 1.2 {ratio} 0.9-2.4 [facility] Work Phone: ALP enzyme act/vol (Bld) [...] Phone: Calcium mass conc 8.8 mg/dL 8.5-10.1 [facility] Work Phone: Chloride molar conc 105 mmol/L 98-107 [facility] Work Phone: CO2 ppres (BldV) 25.0 mmol/L 21.0-32.0 [facility] Work Phone: Creatinine mass conc 0.82 mg/dL 0.55-1.[address] [facility] Work Phone: EST GFR - AA 110 mL/min >60 [facility] Work Phone: GFR/1.73 sq M predicted among non-blacks MDRD vol rate/area (S/P/Bld) 91 mL/min/{1.73_m2} >60 [facility] Work Phone: Globulin mass conc (S) 3.2 g/dL 2.3-3.5 [facility] Work Phone: Glucose mass conc 82 mg/dL 70-110 [facility] Work Phone: Potassium molar conc 4.0 mmol/L 3.5-5.[address] [facility] Work Phone: Protein mass conc 7.2 g/dL 6.4-8.2 [facility] Work Phone: Sodium molar conc 140 mmol/L 136-145 [facility] Work Phone: Urea nitrogen mass conc 12 mg/dL 7-18 [facility] Work Phone: Urea nitrogen/Creatinine mass ratio 14.6 RATIO 10-20 [facility] Work Phone: Lab Report: Lipid Profileon [...] (TSH)on 10-27-2016 Thyrotropin Qn 1.25 u[iU]/mL 0.358-3.74 [facility] Work Phone: Office Visiton 09-26-2016 Adolescent depression screening assessment Adolescent depression screening assessment Invalid Interpretation Code [facility] Work Phone: Adult depression screening assessment Adult depression screening assessment Invalid Interpretation Code [facility] Work Phone: Adult depression screening assessment Adolescent depression screening assessment [facility] Work Phone: Documentation of current medications (procedure) Done Invalid Interpretation Code [facility] Work Phone: PHQ-9 quick depression assessment panel [Reported.PHQ] Adult depression screening assessment [facility] Work Phone: Protein mass conc Done [facility] Work Phone: Tobacco smoking status NHIS Never [facility] Work Phone: Tobacco smoking status NHIS Never smoker [facility] Work Phone: Tobacco use [facility] Never smoker Invalid Interpretation Code [facility] Work Phone: Vital Signs Date Time Vital Sign Value Performing Clinician Facility 01-18-2025 18:30-0400 Body temperature 98.8 [degF] [facility] 01-18-2025 18:30-0400 Diastolic blood pressure 74 mm[Hg] [facility] 01-18-2025 18:30-0400 Heart rate 65 /min [facility] 01-18-2025 18:30-0400 Respiratory rate 16 /min [facility] 01-18-2025 18:30-0400 SaO2% (BldA) [Mass fraction] 97 % [facility] 01-18-2025 18:30-0400 Systolic blood pressure 113 mm[Hg] [facility] 01-18-2025 18:25-0400 Body height 167.64 cm [facility] 01-18-2025 18:25-0400 Body mass index (BMI) [Ratio] 32 kg/m2 [facility] 01-18-2025 18:25-0400 Body weight 89.9 kg [facility] 12-10-2024 14:38-0400 Body mass index (BMI) [Ratio] 30.67 kg/m2 Camelia Herrera APRN.CNM Work Phone: [facility] 12-10-2024 14:38-0400 Body weight 86.18 kg Camelia Herrera [employer]CN[employer] Work Phone: [facility] 12-10-2024 14:38-0400 Diastolic blood pressure 60 mm[Hg] Camelia Herrera [employer]CN[employer] Work Phone: [facility] 12-10-2024 14:38-0400 Systolic blood pressure 120 mm[Hg] Camelia Herrera [employer] Work Phone: [facility] 11-26-2024 14:40-0400 Body mass index (BMI) [Ratio] 30.21 kg/m2 Hoda Plotts [employer]CN[employer] Work Phone: [facility] 11-26-2024 14:40-0400 Body weight 84.91 kg Hoda Hager [employer]CNM Work Phone: [facility] 11-26-2024 14:40-0400 Diastolic blood pressure 60 mm[Hg] Hoda Plotts [employer] Work Phone: [facility] 11-26-2024 14:40-0400 Systolic blood pressure 106 mm[Hg] Hoda Plotts [employer]CN[employer] Work Phone: [facility] 11-12-2024 14:32-0400 Body mass index (BMI) [Ratio] 29.7 kg/m2 Camelia Herrera [employer]CN[employer] Work Phone: [facility] 11-12-2024 14:32-0400 Body weight 83.46 kg Camelia Herrera [employer]CNM Work Phone: [facility] 11-12-2024 14:32-0400 Diastolic blood pressure 78 mm[Hg] Camelia Herrera [employer]CNM Work Phone: [facility] 11-12-2024 14:32-0400 Systolic blood pressure 128 mm[Hg] Camelia Herrera [employer]CN[employer] Work Phone: [facility] 10-28-2024 11:13-0400 Body mass index (BMI) [Ratio] 28.89 kg/m2 Laurie Serra [employer] Work Phone: [facility] 10-28-2024 11:13-0400 Body weight 81.19 kg Laurie Serra [employer] Work Phone: [facility] 10-28-2024 11:13-0400 Diastolic blood pressure 66 mm[Hg] Laurie Serra [employer] Work Phone: [facility] 10-28-2024 11:13-0400 Heart rate 70 /min Laurie Serra [employer] Work Phone: [facility] 10-28-2024 11:13-0400 SaO2% (BldA) [Mass fraction] 98 % Laurie Serra [employer] Work Phone: [facility] 10-28-2024 11:13-0400 Systolic blood pressure 113 mm[Hg] Laurie Serra [employer] Work Phone: [facility] 10-22-2024 14:35-0400 Body mass index (BMI) [Ratio] 28.79 kg/m2 Hoda Plotts [employer]CNM Work Phone: [facility] 10-22-2024 14:35-0400 Body weight 80.92 kg Hoda Plotts [employer]CNM Work Phone: [facility] 10-22-2024 14:35-0400 Diastolic blood pressure 60 mm[Hg] Hoda Plotts [employer].CNM Work Phone: [facility] 10-22-2024 14:35-0400 Systolic blood pressure 100 mm[Hg] Hoda Plotts [employer]CNM Work Phone: [facility] 10-08-2024 09:16-0400 Body mass index (BMI) [Ratio] 28.25 kg/m2 Hoda Plotts [employer]CNM Work Phone: [facility] 10-08-2024 09:16-0400 Body weight 79.38 kg Hoda Plotts [employer]CNM Work Phone: [facility] 10-08-2024 09:16-0400 Diastolic blood pressure 60 mm[Hg] Hoda Plotts [employer] Work Phone: [facility] 10-08-2024 09:16-0400 Systolic blood pressure 110 mm[Hg] Hoda Plotts [employer]CNM Work Phone: [facility] 09-10-2024 15:13-0400 Body mass index (BMI) [Ratio] 27.6 kg/m2 Hoda Plotts [employer]CNM Work Phone: [facility] 09-10-2024 15:13-0400 Body weight 77.56 kg Hoda Plotts [employer]CNM Work Phone: [facility] 09-10-2024 15:13-0400 Diastolic blood pressure 66 mm[Hg] Hoda Plotts [employer]CNM Work Phone: [facility] 09-10-2024 15:13-0400 Systolic blood pressure 112 mm[Hg] Hoda Plotts [employer]M Work Phone: [facility] 08-15-2024 14:34-0400 Body mass index (BMI) [Ratio] 27.6 kg/m2 Camelia Herrera [employer]CNM Work Phone: [facility] 08-15-2024 14:34-0400 Body weight 77.56 kg Camelia Herrera [employer]CNM Work Phone: [facility] 08-15-2024 14:34-0400 Diastolic blood pressure 66 mm[Hg] Camelia Herrera [employer]CNM Work Phone: [facility] 08-15-2024 14:34-0400 Systolic blood pressure 108 mm[Hg] Camelia Herrera [employer]CNM Work Phone: [facility] 07-18-2024 08:23-0400 Body height 167.6 cm Yasmeen Vera [employer] Work Phone: [facility] 07-18-2024 08:23-0400 Body mass index (BMI) [Ratio] 27.44 kg/m2 Yasmeen [place] [employer] Work Phone: [facility] 07-18-2024 08:23-0400 Body weight 77.11 kg Yasmeen Jody [employer] Work Phone: [facility] 07-18-2024 08:23-0400 Diastolic blood pressure 68 mm[Hg] Yasmeen [place] [employer] Work Phone: [facility] 07-18-2024 08:23-0400 Systolic blood pressure 122 mm[Hg] Yasmeen Jody [employer] Work Phone: [facility] 06-13-2024 15:23-0400 Body mass index (BMI) [Ratio] 26.79 kg/m2 Toña Blankenship MD Work Phone: [facility] 06-13-2024 15:23-0400 Body weight 75.3 kg Toña Blankenship MD Work Phone: [facility] 06-13-2024 15:23-0400 Diastolic blood pressure 76 mm[Hg] Toña Blankenship MD Work Phone: [facility] 06-13-2024 15:23-0400 Systolic blood pressure 114 mm[Hg] Toña Blankenship MD Work Phone: [facility] 05-07-2024 10:50-0500 Body mass index (BMI) [Ratio] 27.12 kg/m2 Brennan Haury [employer] Work Phone: [facility] 05-07-2024 10:50-0500 Body weight 76.2 kg Brennan Haury [employer] Work Phone: [facility] 05-07-2024 10:50-0500 Diastolic blood pressure 60 mm[Hg] Brennan Haury [employer] Work Phone: [facility] 05-07-2024 10:50-0500 Systolic blood pressure 110 mm[Hg] Brennan Haury [employer] Work Phone: [facility] 03-28-2024 09:33-0500 Body mass index (BMI) [Ratio] 27.76 kg/m2 Camelia Herrera [employer]CNM Work Phone: [facility] 03-28-2024 09:33-0500 Body weight 78.02 kg Camelia Herrera [employer]CNM Work Phone: [facility] 03-28-2024 09:33-0500 Diastolic blood pressure 74 mm[Hg] Camelia Herrera [employer]CNM Work Phone: [facility] 03-28-2024 09:33-0500 Systolic blood pressure 110 mm[Hg] Camelia Herrera [employer]CNM Work Phone: [facility] 02-04-2024 14:36-0500 Body height 167.6 cm Camelia Herrera [employer]CNM Work Phone: [facility] 02-04-2024 14:36-0500 Body mass index (BMI) [Ratio] 27.6 kg/m2 Camelia Herrera [employer]CNM Work Phone: [facility] 02-04-2024 14:36-0500 Body weight 77.56 kg Camelia Herrera [employer].CNM Work Phone: [facility] 02-04-2024 14:36-0500 Diastolic blood pressure 68 mm[Hg] Camelia Hrerera [employer].CNM Work Phone: [facility] 02-04-2024 14:36-0500 Systolic blood pressure 114 mm[Hg] Camelia Herrera [employer]CNM Work Phone: [facility] 10-30-2023 10:03-0400 Body mass index (BMI) [Ratio] 27.28 kg/m2 Camelia Herrera [employer]CNM Work Phone: [facility] 10-30-2023 10:03-0400 Body weight 76.66 kg Camelia Herrera [employer].CNM Work Phone: [facility] 10-30-2023 10:03-0400 Diastolic blood pressure 64 mm[Hg] Camelia Herrera [employer].CNM Work Phone: [facility] 10-30-2023 10:03-0400 Systolic blood pressure 102 mm[Hg] Camelia Herrera [employer].CNM Work Phone: [facility] 06-20-2023 14:35-0400 Body weight 74.39 kg Camelia Herrera [employer].CNM Work Phone: [facility] 06-20-2023 14:35-0400 Diastolic blood pressure 68 mm[Hg] Camelia Herrera [employer]CNM Work Phone: [facility] 06-20-2023 14:35-0400 Systolic blood pressure 110 mm[Hg] Camelia Herrera [employer]CNM Work Phone: [facility] 01-29-2023 14:54-0400 Body height 167.6 cm Camelia Herrera [employer]M Work Phone: [facility] 01-29-2023 14:54-0400 Body weight 70.67 kg Camelia Herrera [employer].CNM Work Phone: [facility] 01-29-2023 14:54-0400 Diastolic blood pressure 64 mm[Hg] Camelia Herrera [employer].CNM Work Phone: [facility] 01-29-2023 14:54-0400 Systolic blood pressure 108 mm[Hg] Camelia Herrera [employer].CNM Work Phone: [facility] 01-09-2023 16:32-0400 Body weight 68.95 kg Laurie Rajmikeru [employer].WORM FARMER Work Phone: [facility] 01-09-2023 16:32-0400 Diastolic blood pressure 80 mm[Hg] Laurie Rajguru [employer].WORM FARMER Work Phone: [facility] 01-09-2023 16:32-0400 Heart rate 80 /min Laurie Rajguru [employer].WORM FARMER Work Phone: [facility] 01-09-2023 16:32-0400 Respiratory rate 16 /min Laurie Rajguru [employer].WORM FARMER Work Phone: [facility] 01-09-2023 16:32-0400 Systolic blood pressure 118 mm[Hg] Laurie Rajguru [employer].WORM FARMER Work Phone: [facility] 01-02-2023 14:58-0400 Body weight 68.31 kg Laurie Rajguru [employer].WORM FARMER Work Phone: [facility] 01-02-2023 14:58-0400 Diastolic blood pressure 66 mm[Hg] Laurie Rajguru [employer].WORM FARMER Work Phone: [facility] 01-02-2023 14:58-0400 Heart rate 84 /min Laurie Rajguru [employer].WORM FARMER Work Phone: [facility] 01-02-2023 14:58-0400 Systolic blood pressure 118 mm[Hg] Laurie Rajguru [employer].WORM FARMER Work Phone: [facility] 11-21-2022 14:29-0400 Body weight 70.31 kg Laurie Rajguru [employer].WORM FARMER Work Phone: [facility] 11-21-2022 14:29-0400 Diastolic blood pressure 78 mm[Hg] Laurie Rajguru [employer].WORM FARMER Work Phone: [facility] 11-21-2022 14:29-0400 Heart rate 80 /min Laurie Rajguru [employer].WORM FARMER Work Phone: [facility] 11-21-2022 14:29-0400 Systolic blood pressure 132 mm[Hg] Laurie Rajguru [employer].WORM FARMER Work Phone: [facility] 11-20-2022 00:59-0400 Respiratory rate 18 /min Lukas Darling MD Work Phone: [facility] [place] 11-20-2022 00:54-0400 Body temperature 98.01 [degF] Lukas Darling MD Work Phone: [facility] [place] 11-20-2022 00:54-0400 Diastolic blood pressure 90 mm[Hg] Lukas Darling MD Work Phone: [facility] 11-20-2022 00:54-0400 Heart rate 125 /min Lukas Darling MD Work Phone: [facility] 11-20-2022 00:54-0400 SaO2% (BldA) [Mass fraction] 100 % Lukas Darling MD Work Phone: [facility] 11-20-2022 00:54-0400 Systolic blood pressure 133 mm[Hg] Lukas Darling MD Work Phone: [facility] 11-19-2022 00:40-0400 Diastolic Blood Pressure Non-Invasive 79 1 PRINCE RAYA MD [facility] 11-19-2022 00:40-0400 Heart rate 68 /min PRINCE RAYA MD [facility] 11-19-2022 00:40-0400 Reason For Taking VItal Signs PRINCE RAYA MD [facility] 11-19-2022 00:40-0400 Respiratory rate 15 /min PRINCE RAYA MD [facility] 11-19-2022 00:40-0400 Systolic Blood Pressure Non-Invasive 128 1 PRINCE RAYA MD [facility] 11-18-2022 23:30-0400 Blood Pressure Location PRINCE RAYA MD [facility] 11-18-2022 23:30-0400 Body temperature 97.88 [degF] PRINCE RAYA MD [facility] 11-18-2022 23:30-0400 Diastolic Blood Pressure Non-Invasive 96 1 PRINCE RAYA MD [facility] 11-18-2022 23:30-0400 Heart rate 75 /min PRINCE RAYA MD [facility] 11-18-2022 23:30-0400 Respiratory rate 16 /min PRINCE RAYA MD [facility] 11-18-2022 23:30-0400 Systolic Blood Pressure Non-Invasive 149 1 PRINCE RAYA MD [facility] 05-02-2022 14:14-0500 Body height 167.6 cm Camelia Herrera [employer].CNM Work Phone: [facility] 05-02-2022 14:14-0500 Body weight 73.21 kg Caemlia Herrera [employer].CNM Work Phone: [facility] 05-02-2022 14:14-0500 Diastolic blood pressure 70 mm[Hg] Camelia Herrera [employer].CNM Work Phone: [facility] 05-02-2022 14:14-0500 Systolic blood pressure 120 mm[Hg] Camelia Herrera [employer].CNM Work Phone: [facility] 09-26-2016 15:30-0400 BMI (Body Mass Index) [...] Phone: 09-26-2016 15:30-0400 Weight 73.57 kg Migdalia Lucsaoster Infect ious Disease Work Phone: Encounters Encounter Date Encounter Type Care Provider Facility Start: 02-04-2025 End: 02-04-2025 ambulatory [facility] Facility:[facility] Start: 01-28-2025 End: 01-28-2025 ambulatory [facility] Facility:[facility] Start: 01-27-2025 End: 01-27-2025 ambulatory Evie Avila NP Facility:[facility] Start: 01-26-2025 Encounter for genera l adult medical examination without abnormal findings Camelia [facility] Start: 01-21-2025 End: 01-21-2025 ambulatory [facility] Facility:[facility] Start: 01-18-2025 End: 01-18-2025 ambulatory [facility] Facility:[facility] Start: 01-18-2025 End: 01-18-2025 Patient encounter procedure Camelia Herrera CN[facility] Work Phone: Start: 01-07-2025 End: 01-07-2025 ambulatory PRATIMA ONTIVEROS Facility:[facility] Start: 01-06-2025 End: 01-10-2025 ambulatory ROBYN VAZQUEZ DO Facility:[facility] Start: 01-06-2025 End: 01-10-2025 Encounter for general adult medical examination without abnormal findings ROBYN VAZQUEZ DO Facility:[facility] Start: 01-06-2025 End: 01-10-2025 Outreach Lab ROBYN VAZQUEZ DO [facility] Start: 01-02-2025 End: 01-02-2025 ambulatory LAURIE SERRA Facility:[facility] Start: 12-24-2024 End: 12-24-2024 ambulatory [facility] Facility:[facility] Start: 12-10-2024 End: 12-10-2024 [facility] Facility:[facility] Start: 12-10-2024 End: 12-10-2024 Patient encounter procedure [...] History of depression Start: 11-26-2024 End: 11-26-2024 [facility] Facility:[facility] Start: 11-20-2024 End: 11-24-2024 Telephone encounter Camelia Herrera APRN.CNM Work Phone: OB/Gynecology Comment on above: Orders (Breast pump) Start: 11-18-2024 End: 11-18-2024 ambulatory Camelia Herrera APRN.CNM Work Phone: OB/Gynecology Start: 11-18-2024 End: 11-18-2024 Patient encounter procedure Camelia Herrera APRN.CNM Work Phone: OB/Gynecology Comment on above: Appointments and vax talk Start: 11-12-2024 End: 11-12-2024 [facility] Facility:[facility] Start: 11-12-2024 End: 11-12-2024 Patient encounter procedure Camelia Herrera APRN.CNM Work Phone: OB/Gynecology Comment on above: Supervision of yu l first , antepartum (HCC) (Primary Dx); 25 weeks gestation of (HCC); Other depression Start: 11-05-2024 End: 11-05-2024 ambulatory [facility] Facility:[facility] Start: 10-28-2024 End: 10-28-2024 Office outpatient visit 25 minutes Laurie Serra APRN.CNP Work Phone: Psychiatry Comment on above: FREDO (generalized anx iety disorder) (Primary Dx); Other obsessive-compulsive disorders; Recurrent major depressive disorder, in full remission; Encounter for long-term (current) use of medications Start: 10-28-2024 End: 10-28-2024 ambulatory LAURIE SERRA Facility:[facility] Start: 10-22-2024 End: 10-22-2024 [facility] Facility:[facility] Start: 10-22-2024 End: 10-22-2024 Patient encounter procedure Hoda Hager APRN.CNM Work Phone: OB/Gynecology Comment on above: Supervision of yu garcia first , antepartum (HCC) (Primary Dx); 22 weeks gestation of (HCC); Other depression Start: 10-08-2024 End: 10-08-2024 [facility] Facility:[facility] Start: 10-08-2024 End: 10-08-2024 Patient encounter procedure [...] of Lyme disease; 16 weeks gestation of ([facility]) Start: 09-10-2024 End: 09-10-2024 [facility] Facility:[facility] Start: 08-15-2024 End: 08-15-2024 [facility] Facility:[facility] Start: 08-15-2024 End: 08-15-2024 Patient encounter procedure Camelia Herrera APRN.CNM Work Phone: OB/Gynecology Comment on above: Supervision of yu garcia first , antepartum (HCC) (Primary Dx); History of depression; Other depression Encounter for norah العلي screening for malformation using ultrasound ([facility]) (Primary Dx); 12 weeks gestation of ([facility]) Start: 08-15-2024 End: 08-15-2024 [facility] Start: 07-18-2024 End: 09-17-2024 Follow-up encounter Yasmeen Vera APRN.CNP Work Phone: OB/Gynecology Start: 07-18-2024 End: 07-18-2024 Patient encounter procedure Yasmeen Vera APRN.CNP Work Phone: OB/Gynecology Comment on above: Supervision of yu garcia first , antepartum (HCC) (Primary Dx); 8 weeks gestation of ([facility]); with uncertain dates in first trimester ([facility]); care, first in first trimester ([facility]); Screen for STD (sexually transmitted disease) Start: 07-18-2024 End: 07-18-2024 [facility] Start: 07-15-2024 End: 07-15-2024 Telephone encounter Brennan Head APRN.CNP Work Phone: OB/Gynecology Start: 06-23-2024 End: 06-23-2024 ambulatory LAURIE SERRA Facility:[facility] Start: 06-23-2024 End: 06-23-2024 [facility] Laurie Serra APRN.CNP Work Phone: Psychiatry Comment on above: Other obsessive-comp ulsive disorders (Primary Dx); FREDO (generalized anxiety disorder); Psychosocial stressors; Encounter for long-term (current) use of medications; Major depressive disorder, recurrent episode, moderate (HCC) Start: 06-13-2024 End: 06-13-2024 ambulatory TOÑA BLANKENSHIP Facility:[facility] Start: 06-13-2024 End: 06-13-2024 Patient encounter procedure Toña Blankenship MD Work Phone: OB/Gynecology Comment on above: Encounter for precon ception consultation (Primary Dx); Irregular menstrual cycle Start: 05-29-2024 End: 05-29-2024 Refill Laurie Serra APRN.CNP Work Phone: Psychiatry Comment on above: Refill Request Start: 05-19-2024 End: 07-19-2024 Follow-up encounter Brennan Head APRN.WORM FARMER Work Phone: OB/Gynecology Start: 05-16-2024 End: 05-16-2024 ambulatory Bio[employer] Support Specialist [employer] Work Phone: OB/Gynecology Start: 05-16-2024 End: 05-16-2024 Patient encounter procedure [employer] OB/Gynecology Start: 05-09-2024 End: 05-14-2024 Telephone encounter Brennan Head APRN.WORM FARMER Work Phone: OB/Gynecology Comment on above: Results Start: 05-07-2024 End: 05-08-2024 ambulatory Brennan Head APRN.WORM FARMER Work Phone: OB/Gynecology Comment on above: Ultrasound Start: 05-07-2024 End: 05-07-2024 Patient encounter procedure Brennan Head APRN.CNP Work Phone: OB/Gynecology Comment on above: Dysuria (Primary Dx) ; Vaginal discharge; Desire for ; Irregular menstrual cycle Start: 03-28-2024 End: 03-28-2024 ambulatory PRATIMA ONTIVEROS Facility:[facility] Start: 03-28-2024 End: 03-28-2024 Patient encounter procedure Camelia Herrera APRN.CNM Work Phone: OB/Gynecology Comment on above: Vaginal discharge (P rimary Dx); Vaginal odor Start: 03-17-2024 End: 03-17-2024 ambulatory Camelia Herrera APRN.CNM Work Phone: OB/Gynecology Comment on above: BV Start: 03-11-2024 End: 03-12-2024 Refill Camelia Herrera APRN.CNM Work Phone: OB/Gynecology Comment on above: Refill Request Start: 03-06-2024 End: 03-06-2024 [facility] LAURIE SERRA Facility:[facility] Start: 03-06-2024 End: 03-06-2024 [facility] Angela Serra APRN.WORM FARMER Work Phone: Psychiatry Comment on above: Other obsessive-comp ulsive disorders (Primary Dx); FREDO (generalized anxiety disorder); Psychosocial stressors; Metabolic syndrome; Major depressive disorder, recurrent episode, moderate (HCC); Encounter for long-term (current) use of medications; Decreased libido without sexual dysfunction Start: 02-04-2024 End: 02-04-2024 Patient encounter procedure Cameila Herrera APRN.CNM Work Phone: OB/Gynecology Comment on above: Encounter for gyneco logical examination (general) (routine) with abnormal findings (Primary Dx); Screening for cervical cancer; Encounter for screening for human papillomavirus (HPV); Encounter for preconception consultation; Anxiety with depression Start: 02-04-2024 End: 02-04-2024 Patient encounter status Camelia Herrera APRN.CNM Work Phone: [facility] Start: 01-25-2024 End: 01-25-2024 [facility].W[facility] FARMER Work Phone: Psychiatry Comment on above: Other [...] consultation (Primary Dx) Start: 10-18-2023 End: 10-18-2023 [facility] [place] Laurie Serra APRN.WORM FARMER Work Phone: Psychiatry Comment on above: Other obsessive-comp ulsive disorders (Primary Dx); FREDO (generalized anxiety disorder); Recurrent major depressive disorder, in partial remission (HCC); Encounter for long-term (current) use of medications; Metabolic syndrome Start: 08-16-2023 Telephone encounter Camelia smalls APRN.CNM Work Phone: OB/Gynecology Comment on above: Irregular Menstrual Cycle Start: 07-18-2023 End: 07-18-2023 [facility] [place] Laurie Serra APRN.WORM FARMER Work Phone: Psychiatry Comment on above: Other obsessive-comp ulsive disorders (Primary Dx); FREDO (generalized anxiety disorder); Recurrent major depressive disorder, in partial remission (HCC); Metabolic syndrome Start: 06-20-2023 End: 06-20-2023 Patient encounter procedure Camelia Herrera APRN.NO Work Phone: OB/Gynecology Comment on above: Encounter for precon ception consultation (Primary Dx) Start: 06-19-2023 End: 06-19-2023 [facility] [place] Laurie Serra APRN.WORM FARMER Work Phone: Psychiatry Comment on above: Other obsessive-comp ulsive disorders (Primary Dx); FREDO (generalized anxiety disorder); Major depressive disorder, recurrent episode, moderate (HCC); Metabolic syndrome Start: 05-16-2023 ambulatory Camelia Herrera APRN.CNM Work Phone: OB/Gynecology Comment on above: Trying to conceive Start: 02-26-2023 End: 02-26-2023 [facility] Laurie Serra APRN.WORM FARMER Work Phone: Psychiatry Comment on above: FREDO (generalized anx iety disorder) (Primary Dx); Other obsessive-compulsive disorders; Recurrent major depressive disorder, in partial remission (HCC) Start: 02-15-2023 Refill Camelia Herrera APRN.CNM Work Phone: OB/Gynecology Comment on above: Refill Request Start: 02-08-2023 Telephone encounter Laurie chapa APRN.WORM FARMER Work Phone: [facility] Comment on above: Consult Start: 02-05-2023 End: 02-05-2023 [facility] Laurie Serra APRN.WORM FARMER Work Phone: Psychiatry Comment on above: Other [...] encounter status Camelia Herrera APRN.CNM Work Phone: [facility] Start: 01-22-2023 End: 01-22-2023 [facility] Laurie Serra APRN.WORM FARMER Work Phone: Psychiatry Comment on above: FREDO (generalized anx iety disorder) (Primary Dx); Other obsessive-compulsive disorders; Recurrent major depressive disorder, in partial remission (HCC) Start: 01-15-2023 Telephone encounter Camelia smalls APRN.CN Work Phone: OB/Gynecology Comment on above: Medication Problem Start: 01-14-2023 Refill Hoda butler [employer].CN Work Phone: OB/Gynecology Comment on above: Refill Request Start: 01-09-2023 End: 01-09-2023 Patient encounter procedure Laurie Serra APRN.[facility] Work Phone: Psychiatry Comment on above: Other obsessive-comp ulsive disorders (Primary Dx); FREDO (generalized anxiety disorder); Recurrent major depressive disorder, in partial remission (HCC) Start: 01-02-2023 End: 01-02-2023 Patient encounter procedure Laurie Serra APRN.WORM FARMER Work Phone: Psychiatry Comment on above: Other obsessive-comp ulsive disorders (Primary Dx); FREDO (generalized anxiety disorder); Recurrent major depressive disorder, in partial remission (HCC) Start: 12-21-2022 Telephone encounter Laurie chapa APRN.WORM FARMER Work Phone: Neurology Start: 12-15-2022 End: 12-15-2022 [facility] Laurie Serra [employer].WORM FARMER Work Phone: Psychiatry Comment on above: FREDO (generalized anx iety disorder) (Primary Dx); Major depressive disorder, recurrent episode, moderate (HCC) Start: 11-21-2022 End: 11-21-2022 Patient encounter procedure Laurie Serra APRN.WORM FARMER Work Phone: Psychiatry Comment on above: FREDO (generalized anx iety disorder) (Primary Dx); Recurrent major depressive disorder, in partial remission (HCC) Start: 11-20-2022 End: 11-20-2022 [facility] Laurie Serra APRN.WORM FARMER Work Phone: Psychiatry Comment on above: FREDO (generalized anx iety disorder) (Primary Dx); Unresolved grief; Major depressive disorder, recurrent severe without psychotic features (HCC) Start: 11-19-2022 End: 11-20-2022 Emergency department patient visit [facility] Start: 11-19-2022 End: 11-20-2022 Emergency department patient visit Lukas Darling MD Work Phone: [facility] EMERGENCY [facility] Comment on above: Obsessional thoughts (Primary Dx) Start: 11-19-2022 End: 11-19-2022 Emergency department patient visit PRINCE RAYA Facility:[facility] Start: 11-18-2022 End: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 vero diphtheria toxoid, and acellular pertussis vaccine, adsorbed Toña Blankenship MD Work Phone: [facility] 01-12-2016 influenza, seasonal, injectable, preservative free Toña Blankenship MD Work Phone: [facility] 02-23-2009 novel Influenza-H1N1 , live virus for nasal administration Toña Blankenship MD Work Phone: [facility] 06-15-2008 meningococcal polysaccharide (groups A, C, Y and W-135) diphtheria toxoid conjugate vaccine (MCV4P) VERN URBAN MD [facility] 06-08-2008 tetanus and diphther ia toxoids, adsorbed, preservative free, for adult use (5 Lf of tetanus toxoid and 2 Lf of diphtheria toxoid) VERN URBAN MD [facility] 04-08-1998 diphtheria, tetanus toxoids and acellular pertussis vaccine VERN URBAN MD [facility] 04-08-1998 measles, mumps and rubella virus vaccine Toña Blankenship MD Work Phone: [facility] 04-08-1998 measles/mumps/rubell a virus vaccine VERN URBAN MD [facility] 04-08-1998 poliovirus vaccine, inactivated VERN URBAN MD [facility] 10-16-1994 diphtheria, tetanus toxoids and acellular pertussis vaccine VERN URBAN MD [facility] 07-28-1994 haemophilus influenz ae type b vaccine, PRP-T conjugate VERN URBAN MD [facility] 07-28-1994 measles, mumps and rubella virus vaccine Toña Blankenship MD Work Phone: [facility] 07-28-1994 measles/mumps/rubell a virus vaccine VERN URBAN MD [facility] 04-14-1994 hepatitis B vaccine, unspecified formulation VERN URBAN MD [facility] 1993 diphtheria, tetanus toxoids and acellular pertussis vaccine VERN URBAN MD [facility] 1993 haemophilus influenz ae type b vaccine, PRP-T conjugate VERN URBAN MD [facility] 1993 hepatitis B vaccine, unspecified formulation VERN URBAN MD [facility] 1993 poliovirus vaccine, inactivated VERN URBAN MD [facility] 1993 diphtheria, tetanus toxoids and acellular pertussis vaccine VERN URBAN MD [facility] 1993 haemophilus influenz ae type b vaccine, PRP-T conjugate VERN URBAN MD [facility] 1993 poliovirus vaccine, inactivated VERN URBAN MD [facility] 1993 diphtheria, tetanus toxoids and acellular pertussis vaccine VERN URBAN MD [facility] 1993 haemophilus influenz ae type b vaccine, PRP-T conjugate VERN URBAN MD [facility] 1993 poliovirus vaccine, inactivated VERN URBAN MD [facility] 1993 hepatitis B vaccine, unspecified formulation VERN URBAN MD [facility] Payers Date Payer Category Payer Self-pay 2024 Unknown [id number] 2022 Medicaid [id number] 2022 Private Health Insurance [id number] 2022 Private Health Insurance [id number] 2019 Medicaid [id number] 1993 Unknown [id number] 1995 Unknown [id number] [id number] 1995 Unknown [id number] [id number] 1993 Unknown [id number] 2.16. [id number] Unknown [id number] 2.16.8 [id number] Unknown [id number] 2.16.8 [id number] Social History Date Type Detail Facility Start: 09-23-2019 End: 05-02-2022 Tobacco smoking status NHIS Never smoked tobacco [facility] Start: 05-02-2022 Tobacco use and exposure Smoke less tobacco non-user [facility] Start: 05-02-2022 End: 05-07-2024 Alcohol intake Current drinker of alcohol (finding) [facility] Start: 05-02-2022 Alcohol Comment rarely [facility] Start: 1995 Sex Assigned At Not on file [facility] Start: 1995 Sex Assigned At Female A [facility] Start: 08-24-2022 End: 10-30-2023 History of Social function [facility] Start: 08-24-2022 End: 10-30-2023 Tobacco use panel [facility] Start: 10-18-2014 Adult Depression Screening Assessment 2 [facility] Tobacco smoking stat us NHIS Tobacco smoking consumption unknown [facility] Start: 11-09-2022 End: 11-19-2022 Exposure to SARS-CoV-2 (event) Not sure [facility] Start: 07-15-2024 End: 11-26-2024 Alcoholic beverage intake Ex-drinker (finding) [facility] Start: 07-15-2024 Education 18 [facility] Start: 06-01-2024 [facility] Start: 09-25-2018 Sex Female (finding) [facility] Goals Date Patient Goal Desired Activity /State Personal health goal Functional Status Date Assessment Result Facility 11-19-2022 Functional Status Activity Assistance Ind ependent [facility] 11-19-2022 Functional Status Environmental Safety Implemented Adequate room lighting, Bed in low position, Call device within reach, Non-Slip footwear, Personal items within reach, Sensory aids within reach, Traffic path in room free of clutter, Upper/Half length side rails for bed mobility, Wheels locked [facility] 11-18-2022 Functional Status N/A [facility] Mental Status Date Assessment Result Facility 11-19-2022 Mental Status Orientation Oriented x 4 [facility] 11-18-2022 Mental Status [facility] Clinical Notes 05-02-2022 to 01-18-2025 Note Date & Type Note Facility 01-18-2025 Evaluation note Diagnosis Onset Date Resolution 35 weeks gestation of acute January 18 5:37pm Decreased movements, third trimester, fetus 1 acute January 18, 2025 5:37pm [facility] Work Phone: 1(711) 836-848310-08-2025 NoteHNO ID: [id number] Author: HODA HAGER APRN.CN Service: ? Author Type: Principal Cyber Engineer Type: Progress Notes Filed: 01/07/2025 15:23 Note Text: NST SUMMARY PROVIDER ASSESSMENT AND INTERPRETATION Smita Nguyen is a 29 year old female, , who is at 33w3d with an ENE of 02/22/2025, by Last Menstrual Period dating method. Indications for NST: Decreased Movement Baseline: 135 Variability: Moderate Accelerations: Present 15 X 15 Decelerations: None Contractions: TOCO: None Interpretation: Reactive SIGNATURE: Hoda Hager APRN.[facility]10-03-2025 NoteHNO ID: [id number] Author: LAURIE SERRA APRN.WORM FARMER Service: ? Author Type: Nurse Practitioner Type: [...] visit. Either the patient or their legal collections representative has been informed of the risks and benefits of -- and alternatives to -- treatment through a remote evaluation and consents to proceed with the evaluation remotely. Recording using ambient AI software for draft documentation of the visit was discussed with the patient/authorized collections representative; all questions welcomed and answered. Patient/authorized collections representative agreed to proceed CC: Outpatient follow-up [...] 19 ORAL) Take by mouth once daily. [place] SACCHAROMYCES BOULARDII ORAL INOSITOL ORAL cholecalciferol, [...] Other obsessive-compulsive disorders (more content not included)... [facility]09-10-2025 Instructions* Patient Instructions* Tatum Guillermo MA - 12/10/2024 2:36 PM EDT SEQUENTIAL SCREENINGS The [facility] offers sequential screenings for women who [...] testing. It will require an appointment withour emissions testing and repair technician. This is not an ultrasound performed [...] the above symptoms, contact our office at [phone] and ask to speak with anurse. After hours, you can call doctors registry at [phone] OR call [facility] at [phone] ask to have the doctor construction ironworker paged. If you consider this an emergency, dial 7-- or go to your nearest emergency department. NEED HELP? Are you dealing with a violent or abusive relationship? Are you a victim of rape or sexual assult? Call [facility] ([place]) 24 hour Crisis Hotline: 775.475.8372 or 223-927-8161. MANUAL Your Guide to a Healthy manual is now on-line. Visit [email or web address] to download your free copy documented in this encounterNation[facility]09-10-2025 Miscellaneous Notes* Quick Notes - Camelia [...] week Camelia Herrera APRN.CNM documented in this encounterNationwide [facility] Hospital09-10-2025 Progress note* Quick Notes - Camelia [...] RTO in 2 week Camelia Herrera APRN.CNM [facility]08-27-2025 Instructions* Patient Instructions* Marce Bello MA - 11/26/2024 2:38 PM EDT SEQUENTIAL SCREENINGS The [facility] offers sequential screenings for women who [...] testing. It will require an appointment withour emissions testing and repair technician. This is not an ultrasound performed [...] the above symptoms, contact our office at [phone] and ask to speak with anurse. After hours, you can call doctors registry at [phone] OR call [facility] at [phone] ask to have the doctor construction ironworker paged. If you consider this an emergency, dial 9-1-3 or go to your nearest emergency department. NEED HELP? Are you dealing with a violent or abusive relationship? Are you a victim of rape or sexual assult? Call [facility] ([place]) 24 hour Crisis Hotline: 705.901.4539 or 471-606-5263. MANUAL Your Guide to a Healthy manual is now on-line. Visit [email or web address] to download your free copy documented in this encounterNationwide [facility]08-27-2025 Progress note* Quick Notes - Hoda [...] complaints. Leaving for vacation next week in [place]. O: See flow sheet Gen: No apparent distress Abd: Gravid, nontender ASSESSMENT/PLAN: 1. 27 weeks gestation of 2. Supervision of normal first , antepartum 3. Other depression 4. History of depression - Continue Lexapro 20 mg PO Daily - Continue vitamin and ASA - Traveling via plane to [place] next week- wearing compression stockings and increase [...] or sooner if needed Hoda Hager APRN.CNM [facility]08-27-2025 Miscellaneous Notes* Quick Notes - Hoda [...] complaints. Leaving for vacation next week in [place]. O: See flow sheet Gen: No apparent distress Abd: Gravid, nontender ASSESSMENT/PLAN: 1. 27 weeks gestation of 2. Supervision of normal first , antepartum 3. Other depression 4. History of depression - Continue Lexapro 20 mg PO Daily - Continue vitamin and ASA - Traveling via plane to [place] next week- wearing compression stockings and increase [...] needed Hoda Hager APRN.CNM documented in this encounterNationwide [facility] Hospital08-25-2025 Telephone encounter Note * Telephone Encounter - Mora Villarreal RN - 11/24/2024 4:25 PM EDT Order signed and faxed. Mora Villarreal RN [facility]08-25-2025 Miscellaneous Notes* Telephone Encounter - Mora Villarreal RN - 11/24/2024 4:25 PM EDT Order signed and faxed. Mora Villarreal RN * Telephone Encounter - Glendy Castaneda LPN - 11/20/2024 5:17 PM EDT Breast pump prescription received from [employer]. Order to Mario Alberto Herrera to sign documented in this encounterNationwide Children'[facility] Hospital08-21-2025 Telephone encounter Note * Telephone Encounter - Glendy Castaneda LPN - 11/20/2024 5:17 PM EDT Breast pump prescription received from [facility]. Order to Mario Alberto Herrera to sign [facility]08-13-2025 Instructions* Patient Instructions* Camelia Herrera APRN.CNM [...] after blood is drawn. documented in this encounterNationwide Children'S Hospital08-13-2025 Progress note* Quick Notes - Camelia [...] RTO in 2 week Camelia Herrera APRN.CNM [facility]08-13-2025 Miscellaneous Notes* Quick Notes - Camelia [...] week Camelia Herrera APRN.CNM documented in this encounterNationwide Children'S Hospital07-29-2025 Instructions* Patient Instructions* Laurie Serra APRN.CNP - 10/28/2024 11:01 PM EDT We discussed your and mental health: - You are currently 23 weeks , with a due date around February 22. You are planning a water at [facility], but you are open to other options if necessary. - Continue taking Lexapro 30 mg daily as prescribed. This medication does not impact milk supply and is safe to continue during and . A refill has been sent to [facility], and you can pick it [...] --call the National Suicide Prevention Lifeline at 451 (121-532-6556) --text the Crisis Text Line (text HOME to 781431) --call 911 and let them know you are having a mental health crisis or go to your nearest Emergency Room for stabilization. --You can also call Mobile Crisis at [phone]. -- You may call the department appointment line at [phone] to schedule your appointment. -- Please call my nurse at [phone] or send me a message in Cequ[employer] with any questions or concerns between appointments. documented in this encounterNationwide Children'S Hospital07-29-2025 NoteHNO ID: [id number] Author: LAURIE SERRA APRN.DAVY Service: ? Author Type: Nurse Practitioner Type: Progress Notes Filed: 10/28/2024 23:01 Note Text: FOLLOW UP - PSYCHIATRIC PROGRESS NOTE Visit Type:In person Recording using GoEuro software for draft documentation of the visit was discussed with the patient/authorized collections representative; all questions welcomed and answered. Patient/authorized collections representative agreed to proceed CC: Outpatient follow-up [...] due to recommendations from her midwives at [facility]. She has not needed to use hydroxyzine or Ativan recently but keeps Ativan as a "safety net," carrying 1-2 pills with her and keeping the rest at home. She is planning a water at [facility] and is open to alternative delivery methods [...] break from her primary job at the [employer] due to summer vacation but works at [...] when she learned of her brother and zqjwau-qy-dfv's , but she became herself in May, [...] 19 ORAL) Take by mouth once daily. [place] SACCHAROMYCES BOULARDII ORAL INOSITOL ORAL cholecalciferol, [...] logical, and goal-directed Associat (more content not included)...[facility]07-29-2025 History of Present illness Narrative* Laurie Serra APRN.[facility] - 10/28/2024 11:32 AM EDT Images from the original note were not included. FOLLOW UP - PSYCHIATRIC PROGRESS NOTE Visit Type:In person Recording using GoEuro software for draft documentation of the visit was discussed with the patient/authorized collections representative; all questions welcomed and answered. Patient/authorized collections representative agreed to proceed CC: Outpatient follow-up [...] due to recommendations from her midwives at [facility]. She has not needed to use hydroxyzine or Ativan recently but keeps Ativan as a "safety net," carrying 1-2 pills with her and keeping the rest at home. She is planning a water at [facility] and is open to alternative delivery methods [...] April when she learned of her brother hwssfsmep-nb-nsy's , but she became herself in May, [...] 19 ORAL) Take by mouth once daily. [place] SACCHAROMYCES BOULARDII ORAL INOSITOL ORAL cholecalciferol, [...] Appropriate Insight: Good Judgment: Good DATA REVIEWED: [facility] checked and validated. All prescriptions have been APPROPRIATELY filled. No suspiciousactivity was identified. 10/28/2024 by Laurie Serra APRN.[facility] Psychiatric scales, Labs, and Electronic medical record ASSESSMENT & PLAN: 1. 1. FREDO (generalized anxiety disorder) (F41.1) Recurrent major depressive disorder, in full remission (F33.42) Currently well-managed with Lexapro 30 mg and Inositol. No recent use of Hydroxyzine or Ativan. Engaged in regular exercise and cognitive behavioral therapy. - Continue Lexapro 30 mg daily; refill sent to [facility]. - Advised against using Hydroxyzine [...] regimen. - Refill for Lexapro sent to [facility]. Medical Decision Making: Problems: Moderate: 2+ stable chronic illnesses Risk: Moderate: Moderate risk from testing/treatment and Drug management Medical Decision Making Level: 4 - Moderate ADD ON PSYCHOTHERAPY CODE : No SIGNATURE: Laurie Serra APRN.CNP PATIENT NAME: Smita Nguyen DATE: October 28, 2024 TIME: 11:32 AM documented in this encounterNationwide Children'S Hospital07-23-2025 Instructions* Patient Instructions* Marce Bello MA - 10/22/2024 2:35 PM EDT SEQUENTIAL SCREENINGS The [facility] offers sequential screenings for women who [...] testing. It will require an appointment withour emissions testing and repair technician. This is not an ultrasound performed [...] the above symptoms, contact our office at [phone] and ask to speak with anurse. After hours, you can call doctors registry at [phone] OR call [facility] at [phone] ask to have the doctor construction ironworker paged. If you consider this an emergency, dial 9-1-0 or go to your nearest emergency department. NEED HELP? Are you dealing with a violent or abusive relationship? Are you a victim of rape or sexual assult? Call [facility] ([place]) 24 hour Crisis Hotline: 934.937.4877 or 609-153-8714. MANUAL Your Guide to a Healthy manual is now on-line. Visit [email or web address] to download your free copy documented in this encounterNationwide Children'[facility] Hospital07-23-2025 Progress note* Quick Notes - Hoda [...] or sooner if needed Hoda Hager APRN.CNM [facility]07-23-2025 Miscellaneous Notes* Quick Notes - Hoda [...] needed Hoda Hager APRN.CNM documented in this encounterNationwide Children'S Hospital07-09-2025 Instructions* Patient Instructions* Lisandro Rainey MA - 10/08/2024 9:15 AM EDT SEQUENTIAL SCREENINGS The [facility] offers sequential screenings for women who [...] testing. It will require an appointment withour emissions testing and repair technician. This is not an ultrasound performed [...] the above symptoms, contact our office at [phone] and ask to speak with anurse. After hours, you can call doctors registry at [phone] OR call [facility] at [phone] ask to have the doctor construction ironworker paged. If you consider this an emergency, dial 9-1- or go to your nearest emergency department. NEED HELP? Are you dealing with a violent or abusive relationship? Are you a victim of rape or sexual assult? Call [facility] ([place]) 24 hour Crisis Hotline: 337.225.3376 or 659-804-5968. MANUAL Your Guide to a Healthy manual is now on-line. Visit [email or web address] to download your free copy documented in this encounterNationwide Children'[facility] Hospital07-09-2025 Progress note* Quick Notes - Hoda [...] or sooner if needed Hoda Hager APRN.CNM [facility]07-09-2025 Miscellaneous Notes* Quick Notes - Hoda [...] needed Hoda Hager APRN.CNM documented in this encounterNationwide Children'S Hospital06-30-2025 Telephone encounter Note * Telephone Encounter - Lisandro Rainey MA - 09/29/2024 10:07 AM EDT Patient scheduled for Centering. Lisandro Rainey MA [facility]06-30-2025 Miscellaneous Notes* Telephone Encounter - Lisandro Rainey MA - 09/29/2024 10:07 AM EDT Patient scheduled for Centering. Lisandro Rainey MA documented in this encounterNationwide Children'S Hospital06-24-2025 Telephone encounter Note * Telephone Encounter - Ana Pickens APRN.CNP - 09/23/2024 8:55 AM EDT Covering for regular provider Laurie Serra. Will approve fill at this time [facility]06-24-2025 Miscellaneous Notes* Telephone Encounter - Ana [...] 3 months or sooner if needed. Next: [facility] msg sent to schedule documented in this encounterNationwide Children'S Hospital06-24-2025 Telephone encounter Note * Telephone Encounter - Regina Fletcher - 09/23/2024 7:41 AM EDT Last: 06/23/24 TREATMENT PLAN: Continue Lexapro 30 mg at the same dose to address mood and anxiety symptoms. Utilize Hydroxyzine and Ativan as needed to manage anxiety symptoms. Continue engagement in individual and couple's psychotherapy. Follow up in 3 months or sooner if needed. Next: [facility] msg sent to schedule [facility]06-11-2025 Progress note* Quick Notes - Hoda [...] for anatomy US and KING Hager APRN.CNM [facility] Work Phone: 1(490) 513-460706-11-2025 Miscellaneous Notes* Quick Notes - Hoda Hager [...] and KING Hager APRN.CNM documented in this encounterNationwide Children'S Hospital06-11-2025 Instructions* Patient Instructions* Lisandro Rainey MA - 09/10/2024 3:11 PM EDT SEQUENTIAL SCREENINGS The [facility] offers sequential screenings for women who [...] testing. It will require an appointment withour emissions testing and repair technician. This is not an ultrasound performed [...] the above symptoms, contact our office at [phone] and ask to speak with anurse. After hours, you can call doctors registry at [phone] OR call [facility] at [phone] ask to have the doctor construction ironworker paged. If you consider this an emergency, dial 4-0-9 or go to your nearest emergency department. NEED HELP? Are you dealing with a violent or abusive relationship? Are you a victim of rape or sexual assult? Call [facility] ([place]) 24 hour Crisis Hotline: 534.121.5360 or 182-953-5340. MANUAL Your Guide to a Healthy manual is now on-line. Visit [email or web address] to download your free copy documented in this encounterNationwide Children'S Hospital05-16-2025 Instructions* Patient Instructions* Camelia Herrera APRN.LANETTEM - 08/15/2024 2:34 PM EDT Low Dose Aspirin This sheet talks about exposure to low dose aspirin in and while . This information should not take the place of medical care and advice from your healthcare provider.\\ What is low dose aspirin? Aspirin is also known as acetylsalicylic acid. It is a common prescription and mgzg-jux-fqtiacb medication similar to other non-steroidal inflammatory drugs [...] . For more information, please see the [employer] fact sheet Paternal Exposures at [email or web address] SEQUENTIAL SCREENINGS The [facility] offers sequential screenings for women who [...] testing. It will require an appointment withour emissions testing and repair technician. This is not an ultrasound performed [...] the above symptoms, contact our office at [phone] and ask to speak with anurse. After hours, you can call doctors registry at [phone] OR call [facility] at [phone] ask to have the doctor construction ironworker paged. If you consider this an emergency, dial 9-1-6 or go to your nearest emergency department. NEED HELP? Are you dealing with a violent or abusive relationship? Are you a victim of rape or sexual assult? Call [facility] ([place]) 24 hour Crisis Hotline: 425.286.2384 or 437-821-7723. MANUAL Your Guide to a Healthy manual is now on-line. Visit [email or web address] to download your free copy documented in this encounterNationwide Children'S Hospital05-16-2025 Progress note* Quick Notes - Camelia [...] RTO in 4 weeks Camelia Herrera APRN.CNM [facility]05-16-2025 Miscellaneous Notes* Quick Notes - Camelia [...] weeks Camelia Herrera APRN.CNM documented in this encounterNationwide Children'S Hospital04-18-2025 Instructions* Patient Instructions* Mary Kay Wiseman LPN - 07/18/2024 7:57 AM EDT Please select the following link to access the [facility] Your Guide to a Healthy . [email or web address] documented in this encounterNationwide Children'S Hospital04-15-2025 NoteHNO ID: [id number] Author: YASMEEN VERA APRN.DAVY Service: ? Author Type: Nurse Practitioner Type: Progress Notes Filed: 07/18/2024 10:03 Note Text: Patient declined maintenance and engineering manager. 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 135 tablet 0 SACCHAROMYCES BOULARDII O (more content not included)...[facility]04-15-2025 History of Present illness Narrative* Yasmeen Vera APRN.WORM FARMER - 07/15/2024 4:34 PM EDT Patient declined maintenance and engineering manager. 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 As applicable, any other physician, advance practice provider, medical student, or other health professional student that will be observing or involved in the sensitive examination for educational or training purposes was discussed with the Patient or Authorized Educational Administration Teacher. The Patient or Authorized Educational Administration Teacher has agreed to proceed with the sensitive [...] activity, CRL consistent with LMP. Yasmeen Vera APRN.WORM FARMER SBIRT Smita Clemonscynthiaandre was given the 4P's [...] Your guide to a health and the Typing Section Chief. Reviewed midwifery and usability engineer services that are available. 2) Screening: Hemoglobin [...] prakbar. Yasmeen Vera APRN.DAVY documented in this encounterNationwide Children'S Hospital04-15-2025 Telephone encounter Note * Telephone Encounter [...] bladder. Pt voiced understanding. Pamela Cooper RN [facility]04-15-2025 Miscellaneous Notes* Telephone Encounter - Pamela Cooper [...] someone. Deann Perez MA documented in this encounterNationwide Children'S Hospital04-15-2025 Telephone encounter Note * Telephone Encounter [...] to speak to someone. Deann Perez MA [facility]03-24-2025 Instructions* Patient Instructions* Laurie Serra, GROUND CREWMAN AIRCRAFT SUPPORT.WORM FARMER - 06/23/2024 10:47 PM EDT TREATMENT PLAN: Continue Lexapro 30 mg at the same dose to address mood and anxiety symptoms. Utilize Hydroxyzine and Ativan as needed to manage anxiety symptoms. Continue engagement in individual and couple's psychotherapy. Follow up in 3 months or sooner if needed. For those experiencing a suicidal crisis: --call the National Suicide Prevention Lifeline at 986 (573-515-8998) --text the Crisis Text Line (text HOME to 484365) --call 946 and let them know you are having a mental health crisis or go to your nearest Emergency Room for stabilization. --You can also call Mobile Crisis at [phone]. -- You may call the department appointment line at [phone] to schedule your appointment. -- Please call my nurse at [phone] or send me a message in Cequens with any questions or concerns between appointments. documented in this encounterNationwide Children'S [facility]03-24-2025 NoteHNO ID: [id number] Author: LAURIE SERRA APRN.DAVY Service: ? Author [...] visit. Either the patient or their legal collections representative has been informed of the risks [...] Affect: Full and appropri (more content not included)...[facility]03-24-2025 History of Present illness Narrative* Laurie Serra, GROUND CREWMAN AIRCRAFT SUPPORT.WORM FARMER - 06/23/2024 3:02 PM EDT Images from [...] visit. Either the patient or their legal collections representative has been informed of the risks [...] 2024 TIME: 3:03 PM documented in this encounterNationwide Children'S Hospital03-14-2025 NoteHNO ID: [id number] Author: TOÑA BLANKENSHIP MD Service: ? Author [...] Living0 SAB0 IAB0 Ectopic0 Multiple0 Live Births0 Organ Recovery Coordinator History LMP: 05/18/2024 (Exact Date), Having periods Age at Menarche: Age at First : Age at Menopause: Organ Recovery Coordinator History Comments: Sexual Activity: Yes; Male Contraception: [...] discussed with the Patient or Patient's Authorized Educational Administration Teacher. As applicable, any other physician, advance practice provider, medical student, or other health professional student that will be observing or involved in the sensitive examination for educational or training purposes was discussed with the Patient or Authorized Educational Administration Teacher. The Patient or Authorized Educational Administration Teacher has agreed to proceed with the sensitive [...] levels and FSH Medi (more content not included)...[facility]03-14-2025 History of Present illness Narrative* Toña [...] Living0 SAB0 IAB0 Ectopic0 Multiple0 Live Births0 Organ Recovery Coordinator History LMP: 05/18/2024 (Exact Date), Having periods Age at Menarche: Age at First : Age at Menopause: Organ Recovery Coordinator History Comments: Sexual Activity: Yes; Male Contraception: [...] discussed with the Patient or Patient's Authorized Educational Administration Teacher. As applicable, any other physician, advance practice provider, medical student, or other health professional student that will be observing or involved in the sensitive examination for educational or training purposes was discussed with the Patient or Authorized Educational Administration Teacher. The Patient or Authorized Educational Administration Teacher has agreed to proceed with the sensitive [...] Moderate Toña Blankenship MD documented in this encounterNationwide Children'S Hospital02-27-2025 Telephone encounter Note * Telephone Encounter - Laurie Serra APRN.CNP - 05/29/2024 9:39 AM EST Refill sent to the pharmacy. Patient is due to schedule a follow up appointment with the provider. [facility] Miscellaneous Notes* Telephone Encounter - Laurie [...] 03-06-24 Next appt: none documented in this encounterNationwide Children'S Hospital02-27-2025 Telephone encounter Note * Telephone Encounter - Robert Solis RN - 05/29/2024 9:30 AM EST Pt reports she only has 1-2 days left on this Rx. Last appt with Laurie: 03-06-24 Next appt: none [facility]02-17-2025 NoteHNO ID: [id number] Author: MARCIE SHIELDS MD Service: ? Author Type: Physician Type: Progress Notes Filed: 05/19/2024 12:36 Note Text: Smita Nguyen is a 29 year old female who presented for divine healer ultrasound today. Encounter Diagnosis ICD-10-CM 1. Desire for Z31.9 2. Irregular menstrual cycle N92.6 Please see report under imaging tab. Marcie Shields MD May 19, 2024 12:34 [facility]02-17-2025 History of Present illness Narrative* Marcie Shields MD - 05/19/2024 12:34 PM EST Smita Nguyen is a 29 year old female who presented for divine healer ultrasound today. Encounter Diagnosis ICD-10-CM 1. Desire for Z31.9 2. Irregular menstrual cycle N92.6 Please see report under imaging tab. Marcie Shields MD May 19, 2024 12:34 PM documented in this encounterNationwide Children'S Hospital02-05-2025 NoteHNO ID: [id number] Author: BRENNAN HEAD APRN.WORM FARMER Service: ? Author Type: Nurse Practitioner Type: Progress Notes Filed: 05/07/2024 11:12 Note Text: Hand Reamer offered: Patient declines. Smita Nguyen is a [...] L0 SAB0 IAB0 Ectopic0 Multiple0 Live Births0 Organ Recovery Coordinator History LMP: 03/22/2024 (Exact Date), Having periods Age at Menarche: Age at First : Age at Menopause: Organ Recovery Coordinator History Comments: Sexual Activity: Yes; Male Contraception: [...] or incontinence. + dysuria, odor Expanded ROS: CIVIL ENGINEERING DRAFTSPERSON: Negative for abnormal vaginal bleeding, abnormal vaginal [...] management Medical Decision Making Level: 3 - [facility] History of Present illness Narrative* Brennan Head APRN.CNP - 05/07/2024 10:36 AM EST Hand Reamer offered: Patient declines. Smita Nguyen is a [...] L0 SAB0 IAB0 Ectopic0 Multiple0 Live Births0 Organ Recovery Coordinator History LMP: 03/22/2024 (Exact Date), Having periods Age at Menarche: Age at First : Age at Menopause: Organ Recovery Coordinator History Comments: Sexual Activity: Yes; Male Contraception: [...] or incontinence. + dysuria, odor Expanded ROS: CIVIL ENGINEERING DRAFTSPERSON: Negative for abnormal vaginal bleeding, abnormal vaginal [...] Level: 3 - Low documented in this encounterNationwide Children'S Hospital12-27-2024 NoteHNO ID: [id number] Author: CAMELIA HERRERA APRN.CNM Service: ? Author Type: Principal Cyber Engineer Type: Progress Notes Filed: 03/28/2024 15:16 Note Text: Smita Nguyen is a 28 year old female who presents for problem visit HPI: Presents today with complaint of vaginal discharge, odor, and concerns she has another BV infection. Denies any other complaint. OB History T0 L0 SAB0 IAB0 Ectopic0 Multiple0 Live Births0 Organ Recovery Coordinator History LMP: 03/22/2024 (Exact Date), Having periods Age at Menarche: Age at First : Age at Menopause: Organ Recovery Coordinator History Comments: Sexual Activity: Yes; Male Contraception: [...] discussed with the Patient or Patient's Authorized Educational Administration Teacher. As applicable, any other physician, advance practice provider, medical student, or other health professional student that will be observing or involved in the sensitive examination for educational or training purposes was discussed with the Patient or Authorized Educational Administration Teacher. The Patient or Authorized Educational Administration Teacher has agreed to proceed with the sensitive examination. (Sensitive examination includes inspection and/or palpation of the breasts, pelvis, prostate and anorectal regions). EXAM: BP 110/74 Wt 172 lb (78.0kg) LMP 03/22/2024 GENERAL: pleasant, female in no apparent distress HEENT: Normocephalic and atraumatic NECK: Supple and full range of motion PELVIC: external genitalia normal, normal Bartholin's glands, urethra, Maryhill's glands, no vulvar lesions, no cervical lesions, [...] MYRA/TRICHOMONAS NAAT BACTERIAL VAGINOSIS NAAT Camelia Herrera APRN.[facility]12-27-2024 History of Present illness Narrative* [facility]N.[facility] - 03/28/2024 9:32 AM EST Smita Nguyen is a 28 year old female who presents for problem visit HPI: Presents today with complaint of vaginal discharge, odor, and concerns she has another BV infection. Denies any other complaint. OB History T0 L0 SAB0 IAB0 Ectopic0 Multiple0 Live Births0 Organ Recovery Coordinator History LMP: 03/22/2024 (Exact Date), Having periods Age at Menarche: Age at First : Age at Menopause: Organ Recovery Coordinator History Comments: Sexual Activity: Yes; Male Contraception: [...] discussed with the Patient or Patient's Authorized Educational Administration Teacher. As applicable, any other physician, advance practice provider, medical student, or other health professional student that will be observing or involved in the sensitive examination for educational or training purposes was discussed with the Patient or Authorized Educational Administration Teacher. The Patient or Authorized Educational Administration Teacher has agreed to proceed with the sensitive examination. (Sensitive examination includes inspection and/or palpation of the breasts, pelvis, prostate and anorectal regions). EXAM: BP 110/74 Wt 172 lb (78.0kg) LMP 03/22/2024 GENERAL: pleasant, female in no apparent distress HEENT: Normocephalic and atraumatic NECK: Supple and full range of motion PELVIC: external genitalia normal, normal Bartholin's glands, urethra, Maryhill's glands, no vulvar lesions, no cervical lesions, [...] MYRA/TRICHOMONAS NAAT BACTERIAL VAGINOSIS NAAT Camelia Herrera, GROUND CREWMAN AIRCRAFT SUPPORT.CNM documented in this encounterNationwide Children'S Hospital12-10-2024 Telephone encounter Note * Telephone Encounter - Pamela Cooper RN - 03/11/2024 4:26 PM EST Last OV 02/04/24. Requested Prescriptions Pending Prescriptions Disp Refills progesterone micronized (PROMETRIUM) 100 mg capsule 90 capsule 11 Sig: Take 3 capsules by mouth once daily. Used for mood. Progesterone - Compound Pamela Cooper RN [facility]12-10-2024 Miscellaneous Notes* Telephone Encounter - Pamela Cooper RN - 03/11/2024 4:26 PM EST Last OV 02/04/24. Requested Prescriptions Pending Prescriptions Disp Refills progesterone micronized (PROMETRIUM) 100 mg capsule 90 capsule 11 Sig: Take 3 capsules by mouth once daily. Used for mood. Progesterone - Compound Pamela Cooper RN documented in this encounterNationwide Children'S Hospital12-05-2024 Instructions* Patient Instructions* Laurie Serra APRN.WORM FARMER - 03/06/2024 8:55 AM EST TREATMENT PLAN: [...] --call the National Suicide Prevention Lifeline at 466 (476-620-8744) --text the Crisis Text Line (text HOME to 866045) --call 251 and let them know you are having a mental health crisis or go to your nearest Emergency Room for stabilization. --You can also call Mobile Crisis at [phone]. -- You may call the department appointment line at [phone] to schedule your appointment. -- Please call my nurse at [phone] or send me a message in Cequens with any questions or concerns between appointments. documented in this encounterNationwide Children'S Hospital12-05-2024 History of Present illness Narrative* Laurie [...] visit. Either the patient or their legal collections representative has been informed of the risks [...] organized. Did have a meeting with her automobile leasing supervisor to discuss some of her concerns. [...] 2024 TIME: 8:35 AM documented in this encounterNationwide Children'S Hospital12-05-2024 NoteHNO ID: [id number] Author: LAURIE SERRA APRN.CNP Service: ? Author [...] visit. Either the patient or their legal collections representative has been informed of the risks [...] organized. Did have a meeting with her automobile leasing supervisor to discuss some of her concerns. [...] jerry, phonetics, and sy (more content not included)...[facility] 02-04-2024 History of Present illness Narrative* Camelia Herrera APRN.LANETTE - 02/04/2024 2:34 PM EST Hand Reamer offered: Patient declines. Smita is a 28 year old who presents for an annual gynecologic exam. Attempting for the last 7 months. Did not attempt in December due to stress and needed abreak. Stopped using OPK kits but did show LH surge when she was using them, notices mucous change during ovulation. [place] every other day when she is trying [...] No Exercise: 4-6 times a week doing [employer] OB History T0 L0 SAB0 IAB0 Ectopic0 Multiple0 Live Births0 Organ Recovery Coordinator History LMP: 01/15/2024 (Exact Date), Having periods Age at Menarche: Age at First : Age at Menopause: Organ Recovery Coordinator History Comments: Sexual Activity: Yes; Male Contraception: [...] discussed with the Patient or Patient's Authorized Educational Administration Teacher. As applicable, any other physician, advance practice provider, medical student, or other health professional student that will be observing or involved in the sensitive examination for educational or training purposes was discussed with the Patient or Authorized Educational Administration Teacher. The Patient or Authorized Educational Administration Teacher has agreed to proceed with the sensitive [...] external genitalia normal, normal Bartholin's glands, urethra, Maryhill's glands, no vulvar lesions, no cervical lesions, [...] needed Camelia Herrera APRN.CNM documented in this encounterNationwide Children'S Hospital10-30-2024 Instructions* Patient Instructions* Laurie Serra APRN.WORM FARMER - 01/30/2024 10:22 PM EDT Anastacio Grullon, [...] the National Suicide Prevention Lifeline at 988 (845-576-6775) --text the Crisis Text Line (text HOME to 974339) --call 911 and let them know you are having a mental health crisis or go to your nearest Emergency Room for stabilization. --You can also call Mobile Crisis at [phone]. Next appointment: March 06 at 8:30 am virtual -- You may call the department appointment line at [phone] to schedule your appointment. -- Please call my nurse at [phone] or send me a message in Cequens with any questions or concerns between appointments. documented in this encounterNationwide Children'S Hospital10-25-2024 History of Present illness Narrative* Laurie [...] visit. Either the patient or their legal collections representative has been informed of the risks [...] work has been normal. Has seen her gang boss. Has not started the recommended supplements. Reviewed that list of recommended supplements and encouraged patient to start them. Asked about continuing her compounded progesterone. Encouraged that she reach out to her Principal Cyber Engineer Yolanda to ask about that. Does [...] 2024 TIME: 1:57 PM documented in this encounterNationwide Children'S Hospital07-30-2024 Instructions* Patient Instructions* Camelia Herrera APRN.CNM [...] company for pricing and let me know. [facility] place the order. https://[employer]/genetic-tests/wrwthnllz-lgswocu-qzzmcp/ If you ever desire referral to infertility please do not hesitate to ask. Can try these supplementsand see what happens in the next 3 months Supplements: 1) Berberine 400 mg three times daily for PCOS 2) Inositol (Edwin-inositol and Q-yxvvh-vddwdynz 40:1 ratio)I recommend using a combination product containing edwin-inositol and j-cydxr-xejllmzz, up to 4 grams per day, for maximum benefit. Can add Iniosotil 2,000mg that you have https://[employer]/products/olj-nikmf-rggporav-40-1 3) Vitex https://[employer]/products/gsiuz-vuharq-snxm-glez-capsule 4) Vitamin Urology for semen analysis documented in this encounterNationwide Children'S Hospital07-30-2024 History of Present illness Narrative* Camelia [...] flow. Using OPK and showing LH surge. [place] every day to every other day after last day of menses. Making sure to having intercourse near and on day 14 at ovulation. Notices increased discharge at time of ovulation. No history of STDs or pelvic surgery. [place], together for 5 year. Was using condoms or withdrawal method prior to trying to conceive. OB History T0 L0 SAB0 IAB0 Ectopic0 Multiple0 Live Births0 Organ Recovery Coordinator History LMP: 10/17/2023 (Exact Date), Having periods Age at Menarche: Age at First : Age at Menopause: Organ Recovery Coordinator History Comments: Sexual Activity: Yes; Male Contraception: [...] 10 mg by mouth daily at bedtime. 767-vngk-uuuke-omega3 (ONE-A-DAY -1) 27 mg iron- 800 mcg-235 [...] time Camelia Herrera APRN.CNM documented in this encounterNationwide Children'S Hospital07-18-2024 History of Present illness Narrative* Laurie [...] visit. Either the patient or their legal collections representative has been informed of the risks [...] night a week when her is in [place] for work. Cannot remember the last time [...] Take 2 tablets by mouth once daily. 204-ykci-ykaxm-omega3 (ONE-A-DAY -1) 27 mg iron- 800 mcg-235 [...] suspiciousactivity was identified. 10/18/2023 by Laurie Serra APRN.WORM FARMER DIAGNOSIS: Other obsessive-compulsive disorders (primary encounter diagnosis) [...] which included preparing to see the patient, tezn-xl-xbfu patient care, completing clinical documentation, and counseling and educating the patient/family/caregiver, ordering medications/labs. ADD ON PSYCHOTHERAPY CODE : No SIGNATURE: Laurie Serra APRN.CNP PATIENT NAME: Smita Nguyen DATE: October 18, 2023 TIME: 8:58 AM documented in this encounterNationwide Children'S Hospital05-17-2024 Telephone encounter Note * Telephone Encounter - Mora Villarreal RN - 08/17/2023 1:37 PM EDT Patient notified. She thinks menses started today. Will call with further concerns. Mora Villarreal RN [facility]05-17-[facility]24 Miscellaneous Notes* Telephone Encounter - Mora [...] tomorrow. Mora Villarreal RN documented in this encounterNationwide Children'S Hospital05-17-2024 Telephone encounter Note * Telephone Encounter - Camelia Herrera APRN.CNM - 08/17/2023 12:12 PM EDT Can order serum hCG if negative recommend follow up appt virtual. Camelia Herrera APRN.CNM [facility]05-16-20[facility] Telephone encounter Note* Telephone Encounter - [...] back in office tomorrow. Mora Villarreal RN [facility]04-17-20[facility] History of Present illness Narrative* Laurie Serra APRN.WORM FARMER - 07/18/2023 2:43 PM EDT Images from [...] visit. Either the patient or their legal collections representative has been informed of the risks [...] infection. Reports premenstrual worsening of her anxiety. Stanley that anxiety began in 2011 after she [...] on File Prior to Visit Medication Sig 072-lzal-rivut-omega3 (ONE-A-DAY -1) 27 mg iron- 800 mcg-235 [...] REVIEWED: Psychiatric scales, Electronic medical record, and [facility] PDMP website checked and validated. All prescriptions [...] the National Suicide Prevention Lifeline at 988 (544.800.3180) --text the Crisis Text Line (text HOME to 723027) --call 911 and let them know you are having a mental health crisis or go to your nearest Emergency Room for stabilization. --You can also call Mobile Crisis at [phone]. MEDICATION CHANGES: Current medication regimen unchanged. See [...] which included preparing to see the patient, lwbw-sx-xmwr patient care, completing clinical documentation, and counseling and educating the patient/family/caregiver, ordering medications/labs. ADD ON PSYCHOTHERAPY CODE : No SIGNATURE: Laurie Serra APRN.WORM FARMER PATIENT NAME: Smita Nguyen DATE: July 18, 2023 TIME: 2:43 PM documented in this encounterNationwide Children'S Hospital03-20-2024 History of Present illness Narrative* Camelia Herrera APRN.CNM - 06/20/2023 2:32 PM EDT Smita Nguyen is a 28 year old female who presents for problem visit HPI: Trying to conceive in last 3 months. Using OPK and showing LH surge. [place] every day to every other day after [...] L0 SAB0 IAB0 Ectopic0 Multiple0 Live Births0 Organ Recovery Coordinator History LMP: 06/09/2023 (Exact Date), Having periods Age at Menarche: Age at First : Age at Menopause: Organ Recovery Coordinator History Comments: Sexual Activity: Yes; Male Contraception: Condom No past medical history on file. No past surgical history on file. No family history on file. Social History Tobacco Use Smoking status: Never Smokeless tobacco: Never Vaping Use Vaping Use: Never used Substance Use Topics Alcohol use: Yes Comment: rarely Drug use: Never Current Outpatient Medications Medication Sig 175-iqmb-ukaul-omega3 (ONE-A-DAY -1) 27 mg iron- 800 mcg-235 [...] cap Take by mouth as directed. PNV 684-hrsg-pwuvyi-dha 90 mg iron- 1 mg-200 mg cap [...] chemicals. Camelia Herrera APRN.CNM documented in this encounterNationwide Children'S Hospital03-19-2024 History of Present illness Narrative* Laurie [...] visit. Either the patient or their legal collections representative has been informed of the risks [...] as leaves that day to work in [place]. They are staying at their new place [...] cap Take by mouth as directed. PNV 028-qnwt-nrauot-dha 90 mg iron- 1 mg-200 mg cap [...] Psychiatric scales, Labs, Electronic medical record, and Funeral Car Driver notes DIAGNOSIS: OCD Generalized Anxiety Disorder MDD, [...] which included preparing to see the patient, rqck-lh-rczn patient care, completing clinical documentation, obtaining and/or [...] 2023 TIME: 2:07 PM documented in this encounterNationwide Children'S Hospital11-27-2023 Telephone encounter Note * Telephone Encounter - Laurie Serra APRN.CNP - 02/26/2023 12:56 PM EST Collaborated with patient's psychologist Maia Lockett regarding patient's current presentation, medication management plan and coping strategies. [facility] Work Phone: 1(341) 763-844511-27-2023 Miscellaneous Notes* Telephone Encounter - Laurie Serra [...] this patient. She can be reached at [phone]. documented in this encounterNationwide Children'S Hospital11-27-2023 History of Present illness Narrative* Laurie [...] visit. Either the patient or their legal collections representative has been informed of the risks [...] dose. 3. Continue individual psychotherapy weekly. Today Smiat shares that "I am okay". She has [...] cap Take by mouth as directed. PNV 852-odyk-ebgmfz-dha 90 mg iron- 1 mg-200 mg cap [...] which included preparing to see the patient, cphd-da-ndid patient care, completing clinical documentation, obtaining and/or [...] 2023 TIME: 9:01 AM documented in this encounterNationwide Children'S Hospital11-17-2023 Miscellaneous Notes* Telephone Encounter - Mora Villarreal RN - 02/16/2023 9:45 AM EST Last annual with [facility] 01/29/23. Requested Prescriptions Pending Prescriptions Disp Refills progesterone micronized (PROMETRIUM) 100 mg capsule 90 capsule 11 Sig: Take 3 capsules by mouth once daily. Used for mood. Progesterone - Compound Mora Villarreal RN documented in this encounterNationwide Children'S Hospital11-09-2023 Telephone encounter Note * Telephone Encounter - Lise Villar - 02/08/2023 12:55 PM EST Patient verified by name and . Maia Lockett, her Psychologist is calling, She would like to consult with Laurie about this patient. She can be reached at [phone]. [facility]11-[facility] History of Present illness Narrative* Laurie [...] visit. Either the patient or their legal collections representative has been informed of the risks [...] Her parents are going to travel to [place] for 1 week but her will be [...] cap Take by mouth as directed. PNV 452-resi-sjorlt-dha 90 mg iron- 1 mg-200 mg cap [...] REVIEWED: Psychiatric scales, Electronic medical record, and Funeral Car Driver notes DIAGNOSIS: PRIMARY: OCD Secondary : Generalized [...] which included preparing to see the patient, psyc-em-jurt patient care, completing clinical documentation, obtaining and/or reviewing separately obtained history, counseling and educating the patient/family/caregiver, ordering medications, galina ts, or procedures, independently interpreting results (not separately reported), and communicating results to the patient/family/caregiver. ADD ON PSYCHOTHERAPY CODE : No SIGNATURE: Laurie Serra APRN.CNP PATIENT NAME: Smita Nguyen DATE: February 05, 2023 TIME: 10:02 AM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 Diagnosis Encounter for preconception consultation- Primary Other procreative management counseling and advice [facility] Diagnosis Missed menses- Primary Absence of menstruation Irregular menstrual cycle [facility] Diagnosis Other obsessive-compulsive disorders- Primary [...] dysfunction Decreased libido [facility] Diagnosis Encounter for gynecological examination (general) (routine) with abnormal findings- Primary Screening for cervical cancer Screening for malignant neoplasm of the cervix Encounter for screening for human papillomavirus (HPV) Special screening examination for human papillomavirus (HPV) Encounter for preconception consultation Other procreative management counseling and advice Anxiety with depression [facility] Diagnosis Other obsessive-compulsive disorders- Primary FREDO [...] dysfunction Decreased libido [facility] Diagnosis Vaginal discharge- Primary Leukorrhea, not specified as infective Vaginal odor Unspecified symptom associated with female genital organs documented [facility] Diagnosis Dysuria- Primary Vaginal discharge Leukorrhea, not specified as infective Desire for Unspecified procreative management Irregular menstrual cycle [facility] Diagnosis Desire for Unspecified procreative management Irregular menstrual cycle [facility] Diagnosis Encounter for preconception consultation- Primary Other procreative management counseling and advice Irregular menstrual cycle [facility] Diagnosis Other obsessive-compulsive disorders- Primary FREDO (generalized anxiety disorder) Generalized anxiety disorder Psychosocial stressors Other psychological or physical stress, not elsewhere classified Encounter for long-term (current) use of medications Encounter for long-term (current) use of other medications Major depressive disorder, recurrent episode, moderate (HCC) Major depressive disorder, recurrent episode, moderate [facility] Diagnosis Supervision of normal first , antepartum ([facility])- Primary 8 weeks gestation of ([facility]) state, incidental with uncertain dates in first trimester ([facility]) care, first in first trimester ([facility]) Screen for STD (sexually transmitted disease) Screening examination for venereal disease documented in this encounter [facility] note* Diagnosis Supervision of normal first , antepartum ([facility])- Primary History of depression Personal history of other mental disorder Other depression [facility]* Diagnosis Encounter for screening for malformation using ultrasound ([facility])- Primary 12 weeks gestation of (HCC) state, incidental [facility] Diagnosis Supervision of normal first , antepartum (HCC)- Primary History of depression Personal history of other mental disorder TMJ (temporomandibular joint syndrome) Temporomandibular joint disorders, unspecified History of Lyme disease Personal history of other infectious and parasitic disease 16 weeks gestation of (HCC) state, incidental [facility] Diagnosis Supervision of normal first , antepartum (HCC)- Primary History of depression Personal history of other mental disorder 20 weeks gestation of (HCC) state, incidental [facility] Diagnosis Encounter for anatomic survey (HCC)- Primary Encounter for anatomic survey 20 weeks gestation of (HCC) state, incidental [facility] Diagnosis Supervision of normal first , antepartum (HCC)- Primary 22 weeks gestation of (HCC) state, incidental Other depression [facility] Diagnosis FREDO (generalized anxiety disorder)- Primary Generalized anxiety disorder Other obsessive-compulsive disorders Recurrent major depressive disorder, in full remission Encounter for long-term (current) use of medications Encounter for long-term (current) use of other medications [facility] Diagnosis Supervision of normal first [...] other mental disorder [facility] Medical Records Department [address] [place] [address] OB Triage Physician Note 01/30/25 0855 MR#: [id number] Acct: [id number] Name: SMITA NGUYEN Rep #:[id number] : 1995 29 From: Toña Blankenship MD PCP: Evie Avila, UTILITY 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 Toña Blankenship MD ~ S[facility] To[facility] Blankenship [facility] Note Date/Time January 30, 2025 9 :59am [facility] Medical Records Department [address] [place] [address] OB Triage Physician Note 01/30/25 0855 MR#: [id number] Acct: [id number] Name: SMITA NGUYEN Rep #:[id number] : 1995 From: Toña Blankenship MD PCP: EDI Morgan Status:DE P CLI Y Location: [facility] HPI - General General Date of [...] Avila; Dr. Toña Blankenship MD ~ Signed [facility] Work Phone: Hospital course Narrative No data available for this section [facility] Hospital Discharge instructions No data available for this section [facility] Progress note No data available for this section [facility] Reason for referral (narrative)* Diagnostic Procedure Only (Routine) - Authorized Specialty Diagnoses / Procedures Referred By Contuma t Referred To Contact [facility] Diagnoses Irregular menstrual cycle Procedures PELVIC US WHI US PELVIC NONOBSTETRIC REAL-TIME IMAGE COMPLETE aCmelia Herrera APRN.CNM [address] [place] [address] [facility] [address] [place] [id number] Referral ID Status Reason Start Date Expiration Date Visits Requested Visits Authorized [id number] Authorized Auto-Generat ed Referral 05/02/2022 05/02/2023 1 1 [facility] for referral (narrative)* Diagnostic Procedure Only (Routine) - Authorized Specialty Diagnoses / Procedures Referred By Contac t Referred To Contact [facility] Diagnoses Desire for Irregular menstrual cycle Procedures PELVIC US WHI US PELVIC NONOBSTETRIC REAL-TIME IMAGE COMPLETE Brennan Head APRN.CNP [address] [place] [address] [facility] [address] [place] [id number] Referral ID Status Reason Start Date Expiration Date Visits Requested Visits Authorized [id number] Authorized Auto-Generat ed Referral 05/07/2024 05/07/2025 1 1 [facility] for referral (narrative)No reason for referral [facility] Work Phone: Reason for visit Narrative* Diagnostic Procedure Only (Routine) - Closed Specialty Diagnoses / Procedures Referred By Contac t Referred To Contact [facility] Diagnoses Irregular menstrual cycle Procedures PELVIC US WHI US PELVIC NONOBSTETRIC REAL-TIME IMAGE COMPLETE Camelia Herrera APRN.CNM [address] [place] [address] [address] Referral ID Status Reason Start Date Expiration Date V isits Requested Visits Authorized [id number] Closed Auto-Generate d Referral 05/02/2022 05/02/2023 1 1 [facility] for visit Narrative* Diagnostic Procedure Only (Routine) - Closed Specialty Diagnoses / Procedures Referred By Contac t Referred To Contact [facility] Diagnoses Desire for Irregular menstrual cycle Procedures PELVIC US WHI US PELVIC NONOBSTETRIC REAL-TIME IMAGE COMPLETE Brennan Head APRN.CNP [address] [place] [address] Phone: tel: fax: [facility] [address] [place] [phone] Referral ID Status Reason Start Date Expiration Date V isits Requested Visits Authorized [id number] Closed Auto-Generate d Referral 05/07/2024 05/07/2025 1 1 [facility]* Diagnostic Procedure Only (Routine) - Closed Specialty Diagnoses / Procedures Referred By Pooja mayo Referred To Contact [facility] Diagnoses with uncertain dates in first trimester (HCC) care, first in first trimester (HCC) Procedures OBSTETRIC ULTRASOUND WHI US PREG UTERUS AFTER 1ST TRIMEST GESTATION Yasmeen Vera APRN.WORM FARMER [address] [place] [address] Phone: tel: fax: [address] [phone] Referral ID Status Reason Start Date Expiration Date V isits Requested Visits Authorized [id number] Closed Auto-Generate d Referral 07/18/2024 07/18/2025 1 1 [facility] Summary Purpose Family History No Family [...] MINS Camelia Herrera APRN.CNM [address] [place] [address] [facility] [address] [address] Referral ID Status Reason Start Date Expiration Date Visits Requested Visits Authorized [id number] Pending Review Auto-Generat ed Referral 05/26/2022 05/26/2023 [...] section and content) DATE CREATED AUTHOR 07/07/2020 [facility] DATE CREATED AUTHOR AUTHOR'S ORGANIZ ATION 11/21/2022 [facility] DATE CREATED AUTHOR AUTHOR'S ORGANIZ ATION 12/01/2022 [facility] ([place]) DATE CREATED AUTHOR AUTHOR'S ORGANIZ ATION 01/12/2025 [facility] DATE CREATED AUTHOR AUTHOR'S ORGANIZ ATION 01/31/2025 [facility] DATE CREATED AUTHOR AUTHOR'S ORGANIZ ATION 02/06/2025 [facility] Source Comments (unrecognize d section and content) In the event this informatio n is protected by the Federal Confidentiality of Alcohol and Drug Abuse Patient Records regulations: The Federal rules restrict any use of the information to criminally investigate or prosecute any alcohol or drug abuse patient.[facility] the event this information is protected by the Federal Confidentiality of Alcohol and Drug Abuse Patient Records regulations: The Federal rules restrict any use of the information to criminally investigate or prosecute any alcohol or drug abuse patient.[facility] the event this information is protected by the Federal Confidentiality of Alcohol and Drug Abuse Patient Records regulations: The Federal rules restrict any use of the information to criminally investigate or prosecute any alcohol or drug abuse patient.[facility] the event this information is protected by the Federal Confidentiality of Alcohol and Drug Abuse Patient Records regulations: The Federal rules restrict any use of the information to criminally investigate or prosecute any alcohol or drug abuse patient.[facility] the event this information is protected by the Federal Confidentiality of Alcohol and Drug Abuse Patient Records regulations: The Federal rules restrict any use of the information to criminally investigate or prosecute any alcohol or drug abuse patient.[facility] the event this information is protected by the Federal Confidentiality of Alcohol and Drug Abuse Patient Records regulations: The Federal rules restrict any use of the information to criminally investigate or prosecute any alcohol or drug abuse patient.[facility] the event this information is protected by the Federal Confidentiality of Alcohol and Drug Abuse Patient Records regulations: The Federal rules restrict any use of the information to criminally investigate or prosecute any alcohol or drug abuse patient.[facility] HospitalIn the event this information is protected by the Federal Confidentiality of Alcohol and Drug Abuse Patient Records regulations: The Federal rules restrict any use of the information to criminally investigate or prosecute any alcohol or drug abuse patient.[facility] HospitalIn the event this information is protected by the Federal Confidentiality of Alcohol and Drug Abuse Patient Records regulations: The Federal rules restrict any use of the information to criminally investigate or prosecute any alcohol or drug abuse patient.[facility] HospitalIn the event this information is protected by the Federal Confidentiality of Alcohol and Drug Abuse Patient Records regulations: The Federal rules restrict any use of the information to criminally investigate or prosecute any alcohol or drug abuse patient.[facility] HospitalIn the event this information is protected by the Federal Confidentiality of Alcohol and Drug Abuse Patient Records regulations: The Federal rules restrict any use of the information to criminally investigate or prosecute any alcohol or drug abuse patient.[facility] HospitalIn the event this information is protected by the Federal Confidentiality of Alcohol and Drug Abuse Patient Records regulations: The Federal rules restrict any use of the information to criminally investigate or prosecute any alcohol or drug abuse patient.[facility] HospitalIn the event this information is protected by the Federal Confidentiality of Alcohol and Drug Abuse Patient Records regulations: The Federal rules restrict any use of the information to criminally investigate or prosecute any alcohol or drug abuse patient.[facility] HospitalIn the event this information is protected by the Federal Confidentiality of Alcohol and Drug Abuse Patient Records regulations: The Federal rules restrict any use of the information to criminally investigate or prosecute any alcohol or drug abuse patient.[facility] HospitalIn the event this information is protected by the Federal Confidentiality of Alcohol and Drug Abuse Patient Records regulations: The Federal rules restrict any use of the information to criminally investigate or prosecute any alcohol or drug abuse patient.[facility] the event this information is protected by the Federal Confidentiality of Alcohol and Drug Abuse Patient Records regulations: The Federal rules restrict any use of the information to criminally investigate or prosecute any alcohol or drug abuse patient.[facility] HospitalIn the event this information is protected by the Federal Confidentiality of Alcohol and Drug Abuse Patient Records regulations: The Federal rules restrict any use of the information to criminally investigate or prosecute any alcohol or drug abuse patient.[facility] HospitalIn the event this information is protected [...] or prosecute any alcohol or drug abuse patient.[facility] HospitalIn the event this information is protected by the Federal Confidentiality of Alcohol and Drug Abuse Patient Records regulations: The Federal rules restrict any use of the information to criminally investigate or prosecute any alcohol or drug abuse patient.[facility] HospitalIn the event this information is protected by the Federal Confidentiality of Alcohol and Drug Abuse Patient Records regulations: The Federal rules restrict any use of the information to criminally investigate or prosecute any alcohol or drug abuse patient.[facility] HospitalIn the event this information is protected by the Federal Confidentiality of Alcohol and Drug Abuse Patient Records regulations: The Federal rules restrict any use of the information to criminally investigate or prosecute any alcohol or drug abuse patient.[facility] HospitalIn the event this information is protected by the Federal Confidentiality of Alcohol and Drug Abuse Patient Records regulations: The Federal rules restrict any use of the information to criminally investigate or prosecute any alcohol or drug abuse patient.[facility] HospitalIn the event this information is protected by the Federal Confidentiality of Alcohol and Drug Abuse Patient Records regulations: The Federal rules restrict any use of the information to criminally investigate or prosecute any alcohol or drug abuse patient.[facility] HospitalIn the event this information is protected by the Federal Confidentiality of Alcohol and Drug Abuse Patient Records regulations: The Federal rules restrict any use of the information to criminally investigate or prosecute any alcohol or drug abuse patient.[facility] HospitalIn the event this information is protected by the Federal Confidentiality of Alcohol and Drug Abuse Patient Records regulations: The Federal rules restrict any use of the information to criminally investigate or prosecute any alcohol or drug abuse patient.[facility] HospitalIn the event this information is protected by the Federal Confidentiality of Alcohol and Drug Abuse Patient Records regulations: The Federal rules restrict any use of the information to criminally investigate or prosecute any alcohol or drug abuse patient.[facility] HospitalIn the event this information is protected by the Federal Confidentiality of Alcohol and Drug Abuse Patient Records regulations: The Federal rules restrict any use of the information to criminally investigate or prosecute any alcohol or drug abuse patient.[facility] HospitalIn the event this information is protected by the Federal Confidentiality of Alcohol and Drug Abuse Patient Records regulations: The Federal rules restrict any use of the information to criminally investigate or prosecute any alcohol or drug abuse patient.[facility] HospitalIn the event this information is protected by the Federal Confidentiality of Alcohol and Drug Abuse Patient Records regulations: The Federal rules restrict any use of the information to criminally investigate or prosecute any alcohol or drug abuse patient.[facility] HospitalIn the event this information is protected by the Federal Confidentiality of Alcohol and Drug Abuse Patient Records regulations: The Federal rules restrict any use of the information to criminally investigate or prosecute any alcohol or drug abuse patient.[facility] HospitalIn the event this information is protected by the Federal Confidentiality of Alcohol and Drug Abuse Patient Records regulations: The Federal rules restrict any use of the information to criminally investigate or prosecute any alcohol or drug abuse patient.[facility] HospitalIn the event this information is protected by the Federal Confidentiality of Alcohol and Drug Abuse Patient Records regulations: The Federal rules restrict any use of the information to criminally investigate or prosecute any alcohol or drug abuse patient.[facility] HospitalIn the event this information is protected by the Federal Confidentiality of Alcohol and Drug Abuse Patient Records regulations: The Federal rules restrict any use of the information to criminally investigate or prosecute any alcohol or drug abuse patient.[facility] HospitalIn the event this information is protected by the Federal Confidentiality of Alcohol and Drug Abuse Patient Records regulations: The Federal rules restrict any use of the information to criminally investigate or prosecute any alcohol or drug abuse patient.[facility] HospitalIn the event this information is protected by the Federal Confidentiality of Alcohol and Drug Abuse Patient Records regulations: The Federal rules restrict any use of the information to criminally investigate or prosecute any alcohol or drug abuse patient.[facility] HospitalIn the event this information is protected by the Federal Confidentiality of Alcohol and Drug Abuse Patient Records regulations: The Federal rules restrict any use of the information to criminally investigate or prosecute any alcohol or drug abuse patient.[facility] HospitalIn the event this information is protected by the Federal Confidentiality of Alcohol and Drug Abuse Patient Records regulations: The Federal rules restrict any use of the information to criminally investigate or prosecute any alcohol or drug abuse patient.[facility] HospitalIn the event this information is protected by the Federal Confidentiality of Alcohol and Drug Abuse Patient Records regulations: The Federal rules restrict any use of the information to criminally investigate or prosecute any alcohol or drug abuse patient.[facility] HospitalIn the event this information is protected by the Federal Confidentiality of Alcohol and Drug Abuse Patient Records regulations: The Federal rules restrict any use of the information to criminally investigate or prosecute any alcohol or drug abuse patient.[facility] HospitalIn the event this information is protected by the Federal Confidentiality of Alcohol and Drug Abuse Patient Records regulations: The Federal rules restrict any use of the information to criminally investigate or prosecute any alcohol or drug abuse patient.[facility] HospitalIn the event this information is protected by the Federal Confidentiality of Alcohol and Drug Abuse Patient Records regulations: The Federal rules restrict any use of the information to criminally investigate or prosecute any alcohol or drug abuse patient.[facility] HospitalIn the event this information is protected by the Federal Confidentiality of Alcohol and Drug Abuse Patient Records regulations: The Federal rules restrict any use of the information to criminally investigate or prosecute any alcohol or drug abuse patient.[facility] HospitalIn the event this information is protected by the Federal Confidentiality of Alcohol and Drug Abuse Patient Records regulations: The Federal rules restrict any use of the information to criminally investigate or prosecute any alcohol or drug abuse patient.[facility] HospitalIn the event this information is protected by the Federal Confidentiality of Alcohol and Drug Abuse Patient Records regulations: The Federal rules restrict any use of the information to criminally investigate or prosecute any alcohol or drug abuse patient.[facility] HospitalIn the event this information is protected by the Federal Confidentiality of Alcohol and Drug Abuse Patient Records regulations: The Federal rules restrict any use of the information to criminally investigate or prosecute any alcohol or drug abuse patient.[facility] HospitalIn the event this information is protected by the Federal Confidentiality of Alcohol and Drug Abuse Patient Records regulations: The Federal rules restrict any use of the information to criminally investigate or prosecute any alcohol or drug abuse patient.[facility] HospitalIn the event this information is protected by the Federal Confidentiality of Alcohol and Drug Abuse Patient Records regulations: The Federal rules restrict any use of the information to criminally investigate or prosecute any alcohol or drug abuse patient.[facility] HospitalIn the event this information is protected by the Federal Confidentiality of Alcohol and Drug Abuse Patient Records regulations: The Federal rules restrict any use of the information to criminally investigate or prosecute any alcohol or drug abuse patient.[facility] HospitalIn the event this information is protected by the Federal Confidentiality of Alcohol and Drug Abuse Patient Records regulations: The Federal rules restrict any use of the information to criminally investigate or prosecute any alcohol or drug abuse patient.[facility] HospitalIn the event this information is protected by the Federal Confidentiality of Alcohol and Drug Abuse Patient Records regulations: The Federal rules restrict any use of the information to criminally investigate or prosecute any alcohol or drug abuse patient.[facility] HospitalIn the event this information is protected by the Federal Confidentiality of Alcohol and Drug Abuse Patient Records regulations: The Federal rules restrict any use of the information to criminally investigate or prosecute any alcohol or drug abuse patient.[facility] HospitalIn the event this information is protected by the Federal Confidentiality of Alcohol and Drug Abuse Patient Records regulations: The Federal rules restrict any use of the information to criminally investigate or prosecute any alcohol or drug abuse patient.[facility] HospitalIn the event this information is protected by the Federal Confidentiality of Alcohol and Drug Abuse Patient Records regulations: The Federal rules restrict any use of the information to criminally investigate or prosecute any alcohol or drug abuse patient.[facility] HospitalIn the event this information is protected by the Federal Confidentiality of Alcohol and Drug Abuse Patient Records regulations: The Federal rules restrict any use of the information to criminally investigate or prosecute any alcohol or drug abuse patient.[facility] HospitalIn the event this information is protected by the Federal Confidentiality of Alcohol and Drug Abuse Patient Records regulations: The Federal rules restrict any use of the information to criminally investigate or prosecute any alcohol or drug abuse patient.[facility] HospitalIn the event this information is protected by the Federal Confidentiality of Alcohol and Drug Abuse Patient Records regulations: The Federal rules restrict any use of the information to criminally investigate or prosecute any alcohol or drug abuse patient.[facility] HospitalIn the event this information is protected by the Federal Confidentiality of Alcohol and Drug Abuse Patient Records regulations: The Federal rules restrict any use of the information to criminally investigate or prosecute any alcohol or drug abuse patient.[facility] HospitalIn the event this information is protected by the Federal Confidentiality of Alcohol and Drug Abuse Patient Records regulations: The Federal rules restrict any use of the information to criminally investigate or prosecute any alcohol or drug abuse patient.[facility] HospitalIn the event this information is protected by the Federal Confidentiality of Alcohol and Drug Abuse Patient Records regulations: The Federal rules restrict any use of the information to criminally investigate or prosecute any alcohol or drug abuse patient.[facility] Care Teams (unrecognized sec tion and content) Risk Engineer Relationship Specialty Start Date End Date Pratima Ontiveros CNP [address] [place] [address] PCP - General Family Medicine 12/30/18 Risk Engineer Relationship Specialty Start Date End Date Pratima Ontiveros CNP [address] [place] [phone] PCP - General Family Medicine 12/30/18 Risk Engineer Relationship Specialty Start Date End Date Pratima Ontiveros CNP [address] [place] [phone] (Work) PCP - General Family Medicine 12/30/18 Risk Engineer Relationship Specialty Start Date End Date Pratima Ontiveros CNP [address] [place] [phone] PCP - General Family Medicine 12/30/18 Risk Engineer Relationship Specialty Start Date End Date Pratima Ontiveros CNP [address] [place] [phone] (Work) PCP - General Family Medicine 12/30/18 Risk Engineer Relationship Specialty Start Date End Date Pratima Ontiveros CNP [address] [place] [phone] (Work) PCP - General Family Medicine 12/30/18 Risk Engineer Relationship Specialty Start Date End Date Pratima Ontiveros [address] [place] [phone] PCP - General Nurse Practitioner Family 11/19/22 Risk Engineer Relationship Specialty Start Date End Date Pratima Ontiveros CNP [address] [place] [phone] (Work) PCP - General Family Medicine 12/30/18 Risk Engineer Relationship Specialty Start Date End Date Pratima Ontiveros CNP [address] [place] [phone] PCP - General Family Medicine 12/30/18 Risk Engineer Relationship Specialty Start Date End Date Pratima Ontiveros CNP [address] [place] [address] PCP - General Family Medicine 12/30/18 Risk Engineer Relationship Specialty Start Date End Date Pratima Ontiveros CNP [address] [place] [address] PCP - General Family Medicine 12/30/18 Risk Engineer Relationship Specialty Start Date End Date Pratima Ontiveros CNP [address] [place] [address] PCP - General Family Medicine 12/30/18 Risk Engineer Relationship Specialty Start Date End Date Pratima Ontiveros CNP [address] [place] [address] PCP - General Family Medicine 12/30/18 Risk Engineer Relationship Specialty Start Date End Date Pratima Ontiveros CNP [address] [place] [address] PCP - General Family Medicine 12/30/18 Risk Engineer Relationship Specialty Start Date End Date Pratima Ontiveros CNP [address] [place] [address] PCP - General Family Medicine 12/30/18 Risk Engineer Relationship Specialty Start Date End Date Pratima Ontiveros CNP [address] [place] [address] PCP - General Family Medicine 12/30/18 Risk Engineer Relationship Specialty Start Date End Date Pratima Ontiveros CNP [address] [place] [phone] PCP - General Family Medicine 12/30/18 Risk Engineer Relationship Specialty Start Date End Date Pratima Ontiveros CNP [address] [place] [phone] PCP - General Family Medicine 12/30/18 Risk Engineer Relationship Specialty Start Date End Date Pratima Ontiveros CNP [address] [place] [phone] PCP - General Family Medicine 12/30/18 Risk Engineer Relationship Specialty Start Date End Date Pratima Ontiveros CNP [address] [place] [phone] PCP - General Family Medicine 12/30/18 Risk Engineer Relationship Specialty Start Date End Date Pratima Ontiveros CNP [address] [place] [phone] PCP - General Family Medicine 12/30/18 Risk Engineer Relationship Specialty Start Date End Date Pratima Ontiveros CNP [address] [place] [phone] PCP - General Family Medicine 12/30/18 Risk Engineer Relationship Specialty Start Date End Date Pratima Ontiveros CNP [address] [place] [phone] PCP - General Family Medicine 12/30/18 Risk Engineer Relationship Specialty Start Date End Date Pratima Ontiveros CNP [address] [place] [address] PCP - General Family Medicine 12/30/18 Risk Engineer Relationship Specialty Start Date End Date Pratima Ontiveros CNP [address] [place] [phone] PCP - General Family Medicine 12/30/18 Risk Engineer Relationship Specialty Start Date End Date Pratima Ontiveros CNP [address] [place] [phone] PCP - General Family Medicine 12/30/18 Risk Engineer Relationship Specialty Start Date End Date Pratima Ontiveros CNP [address] [place], [place] [phone] PCP - General Family Medicine 12/30/18 Risk Engineer Relationship Specialty Start Date End Date Pratima Ontiveros CNP [address] [place] [phone] PCP - General Family Medicine 12/30/18 Risk Engineer Relationship Specialty Start Date End Date Pratima Ontiveros APRN.DAVY PCP - General Family Medicine 12/30/18 Risk Engineer Relationship Specialty Start Date End Date Pratima Ontiveros APRN.DAVY PCP - General Family Medicine 12/30/18 Risk Engineer Relationship Specialty Start Date End Date Pratima Ontiveros APRN.CNP PCP - General Family Medicine 12/30/18 Risk Engineer Relationship Specialty Start Date End Date WestonPratima, GROUND CREWMAN AIRCRAFT SUPPORT.WORM FARMER PCP - General Family Medicine 12/30/18 Risk Engineer Relationship Specialty Start Date End Date RaoullavellePratima, GROUND CREWMAN AIRCRAFT SUPPORT.WORM FARMER PCP - General Family Medicine 12/30/18 Risk Engineer Relationship Specialty Start Date End Date Pratima Ontiveros, GROUND CREWMAN AIRCRAFT SUPPORT.WORM FARMER PCP - General Family Medicine 12/30/18 Risk Engineer Relationship Specialty Start Date End Date Pratima Ontiveros, GROUND CREWMAN AIRCRAFT SUPPORT.WORM FARMER PCP - General Family Medicine 12/30/18 Risk Engineer Relationship Specialty Start Date End Date Pratima Ontiveros, GROUND CREWMAN AIRCRAFT SUPPORT.WORM FARMER PCP - General Family Medicine 12/30/18 Risk Engineer Relationship Specialty Start Date End Date Pratima Ontiveros, GROUND CREWMAN AIRCRAFT SUPPORT.WORM FARMER PCP - General Family Medicine 12/30/18 Risk Engineer Relationship Specialty Start Date End Date Pratima Ontiveros, GROUND CREWMAN AIRCRAFT SUPPORT.WORM FARMER PCP - General Family Medicine 12/30/18 Team Status: Active Member Role/Relationship Status Dates Evie Avila UTILITY MECHANIC SUPERVISOR, UTILITY MECHANIC SUPERVISOR-C Primary care physician Acti ve Team Status: Inactive Member Role/Relationship Status Dates Evie Avila UTILITY MECHANIC SUPERVISOR, UTILITY MECHANIC SUPERVISOR-C Primary care physician Acti ve Start: January 18, 2025 End: January 18, 2025 Camelia Herrera CNM Attending physician Active S tart: January 18, 2025 End: January 18, 2025 Camelia Herrera CNM Referring Provider Active St art: January 18, 2025 End: January 18, 2025 Team Status: Inactive Member Role/Relationship Status Dates Evie Avila NP, UTILITY MECHANIC SUPERVISOR-C Primary care physician Julius lara Start: January 27, 2025 End: January 27, 2025 Hoda Hager CNM Attending physician Active Start: January 27, 2025 End: January 27, 2025 Hoda Hager CNM Referring Provider Active Start: January 27, 2025 End: January 27, 2025 Reason for Visit (unrecogniz ed section and content) Reason Comments DUB Reason Comments Organ Recovery Coordinator Exam Reason Onset Date Comments Refill Request [...] weeks Procedures VIDEO PSYC/PSYL EST Laurie Serra, GROUND CREWMAN AIRCRAFT SUPPORT.WORM FARMER [address] [place] [address] Laurie Serra, GROUND CREWMAN AIRCRAFT SUPPORT.WORM FARMER [address] [place] [address] Referral ID Status Reason Start Date Expiration Date V isits Requested Visits Authorized [id number] Pending Review 12/15/2022 03/15/2023 1 1 Reason Comments Follow Up OCD/FREDO/depression Specialty Diagnoses / Procedures Referred By Pooja mayo Referred To Contact Psychiatry / ADULT PSYCHIATRY Diagnoses follow up 2 months Procedures EST PSYC ADULT Laurie Serra, GROUND CREWMAN AIRCRAFT SUPPORT.WORM FARMER [address] [place] [address] Laurie Serra, GROUND CREWMAN AIRCRAFT SUPPORT.WORM FARMER [address] [place] [address] Referral ID Status Reason Start Date Expiration Date V isits Requested Visits Authorized [id number] Pending Review 01/09/2023 04/09/2023 1 1 Reason Onset Date Comments Refill Request 01/14/2023 Reason Comments Medication Problem Specialty Diagnoses / Procedures Referred By Contac t Referred To Contact Psychiatry / ADULT PSYCHIATRY Diagnoses follow up Procedures VIDEO PSYC/PSYL EST Laurie Serra, GROUND CREWMAN [employer]CRAFT SUPPORT.WORM FARMER [address] [place] [address] Laurie Serra, GROUND CREWMAN AIRCRAFT SUPPORT.WORM FARMER [address] [place] [address] Referral ID Status Reason Start Date Expiration Date V isits Requested Visits Authorized [id number] Pending Review 01/22/2023 04/22/2023 1 1 Reason Comments Yearly Exam Reason Onset Date Comments Refill Request 02/15/2023 Reason Comments Discussion Reason Comments Consult Reason Comments Irregular Menstrual Cycle Reason Comments Discussion Trying to conceive Referral ID Status Reason Start Date Expiration Date V isits Requested Visits Authorized [id number] New Request 01/25/2024 04/24/2024 1 1 Reason Comments Well Woman Specialty Diagnoses / Procedures Referred By Contac t Referred To Contact Psychiatry / ADULT PSYCHIATRY Diagnoses follow up Procedures VIDEO PSYC/PSYL EST Laurie Serra, GROUND CREWMAN AIRCRAFT SUPPORT.WORM FARMER [address] [place] [address] Laurie Serra, GROUND CREWMAN AIRCRAFT SUPPORT.WORM FARMER [address] [place] [address] Referral ID Status Reason Start Date Expiration Date V isits Requested Visits Authorized [id number] New Request 03/06/2024 06/04/2024 1 1 Reason Onset Date Comments Refill Request 03/11/2024 Reason Comments Vaginal Problem Urinary Problem Reason Comments Results Reason Onset Date Comments Refill Request 05/29/2024 Specialty Diagnoses / Procedures Referred By Contac t Referred To Contact Psychiatry / ADULT PSYCHIATRY Diagnoses Patient Loosing insurance at end of month and request visit Procedures VIDEO PSYC/PSYL EST Laurie Serra, GROUND CREWMAN AIRCRAFT SUPPORT.WORM FARMER [address] [place] [address] Phone: tel: fax: Laurie Serra, GROUND CREWMAN AIRCRAFT SUPPORT.WORM FARMER [address] [place] [address] Phone: tel: fax: Referral ID Status Reason Start Date Expiration Date V isits Requested Visits Authorized [id number] New Request 06/23/2024 09/21/2024 1 1 Reason Comments New OB/ First OB Reason Onset Date Comments Care 08/15/2024 Reason Comments US Specialty Diagnoses / Procedures Referred By Pooja t Referred To Contact [facility] Diagnoses with uncertain dates in first trimester (HCC) care, first in first trimester (HCC) Procedures OBSTETRIC ULTRASOUND WHI US PREG UTERUS AFTER 1ST TRIMEST GESTATION Yasmeen Vera, GROUND CREWMAN AIRCRAFT SUPPORT.WORM FARMER [address] [place] [address] Phone: tel: fax: [facility] [address] [place] [address] Referral ID Status Reason Start Date Expiration Date V isits Requested Visits Authorized [id number] Closed Auto-Generate d Referral 07/18/2024 07/18/2025 1 [...] up Procedures EST PSYC ADULT Laurie Serra, GROUND CREWMAN AIRCRAFT SUPPORT.WORM FARMER [address] [place] [address] Phone: tel: fax: Laurie Serra, GROUND CREWMAN AIRCRAFT SUPPORT.WORM FARMER [address] [place] [address] Phone: tel: fax: Referral ID Status Reason Start Date Expiration Date V isits Requested Visits Authorized [id number] New Request 10/28/2024 01/26/2025 1 1 Reason Comments Care Reason Comments Orders Breast pump Reason Onset Date Comments Care 11/26/2024 Reason Onset Date Comments Care 12/10/2024 Care Team (unrecognized sect ion and content) Care Team Personnel Name: PRATIMA ONTIVEROS GROUND CREWMAN AIRCRAFT SUPPORT-WORM FARMER Position: P4 Advanced Stone Operator Member Role: Primary Care Physician Address: Address: [address] [place] [id number] [place] [address] Care Team Related Persons Name: CAMRON LEBRON [...] BE BASED ON THE PRIMARY CLINICAL RECORDS. [facility]Rec[facility] [employer] [facility]. provides no warranty or guarantee of the accuracy or completeness of information in this document.
[2025-02-25] MEDS: Lactated Ringers 1,000 ML 50 ML IV (22:10)
[2025-02-25 22:13] LABS: ROM Internal Control Test YES-OK TO RESULT pt. (Internal QC)
[2025-02-25 22:17] LABS: ROM Patient Test POSITIVE (Negative); Record Kit Lot#, ROM+ K3607
[2025-02-25 22:30] LABS: Hematocrit 40.1 % (37-47); Hemoglobin 13.8 g/dL (12.0-15.0); Immature Granulocytes Count 0.100 X10^3/uL (0.0-0.0); Mean Corp Hgb Conc 34.4 g/dL (32-36); Mean Corpuscular Volume 91.8 fL (81-99); Mean Platelet Vol. 12.7 fl (6.2-12.0); NRBC Flagged by Analyzer 0 % (0-5); Platelet Count 174 K/mm3 (150-450); RBC Distribution Width CV 12.3 % (11.6-14.6); RBC Distribution Width SD 40.7 fl (35.1-43.9); Red Blood Count 4.37 M/mm3 (4.2-5.4); White Blood Count 11.0 K/mm3 (4.4-11.0)
[2025-02-25 22:56] LABS: Syphilis Antibodies Nonreactive (Nonreactive)
[2025-02-26] VITALS (37 sets, daily range): BP systolic 120–140; BP diastolic 71–83; PULSE 69–140; RESP 16–18; TEMP 36.3–36.9; O2SAT 96–100
--- OUTSIDE RECORDS SUMMARY | 2025-02-26 00:29 | XMS RPT_ITS | CCD ---
Author Organization [facility] Care Team Providers Care Rust Proofer Name Role Phone Migdalia Calderon LPN Unavailable Unavailable Migdalia Calderon LPN Unavailable Unavailable Angelique Walden NP Unavailable SYSTEM, PROVIDER NOT IN Primary Care Unavaila SALOME Moody Attending Unavail able Weston BHATTI [place] Primary Care Provider LORSON CALL OR CONTACT CENTRE OPERATOR-WOOD HEEL BACK LINER, [place] Primary Care Physician Weston BHATTI [place] Primary Care Provider Weston [place] Primary Care Provider [phone] LUKAS DARLING Attending Unavailable [facility] Primary Care Unavailable PRINCE RAYA Attending Unavailable RAOULSON CALL OR CONTACT CENTRE OPERATOR-WOOD HEEL BACK LINER, [place] Primary [facility] Unavail able VERN URBAN MD Attending Unavailable LORSON CALL OR CONTACT CENTRE OPERATOR-WOOD HEEL BACK LINER, [facility] Unavail able LORSON CALL OR CONTACT CENTRE OPERATOR-WOOD HEEL BACK LINER, PRATIMA Attending Unavail able LORSON CALL OR [facility] Raoulson DAVY [place] Primary Care Provider Raoulson CALL OR CONTACT CENTRE OPERATOR.WOOD HEEL BACK LINER, [place] Primary Care Provider ROBYN VAZQUEZ DO Attending [...] Physician Madan SARABIA, Hoda Referring Provider LORSON, PARISH Primary Care Unavailable HODA HAGER Attending Unavailable ANAYELI SERRAI J Referring Unavailable ANAYELI SERRAI J Attending Unavailable [facility] Primary Care Unavailable LORSON, [place] Primary Care Unavailable PLOTCALVIN BERMUDEZNEY Attending Unavailable [facility] Primary Care Unavailable PLOTCALVIN BERMUDEZNEY Attending Unavailable ARNALDORU, LAURIE J Attending Unavailable ARNALDORU, LAUIRE J Referring Unavailable [facility] Primary Care Unavailable RAJGURU, LAURIE J Referring Unavailable RAJGURU, LAURIE J Attending Unavailable [facility] Primary Care Unavailable [facility] Primary Care Unavailable CAMELIA HERRERA Attending Unavailable [facility] Primary Care Unavailable CAMELIA HERRERA Attending Unavailable JODY, YASMEEN Referring Unavailable [facility] Primary Care Unavailable JODY, YASMEEN Referring Unavailable [facility] Primary Care Unavailable JODY, YASMEEN Referring Unavailable PLOTHODA BERMUDEZ Attending Unavailable [facility] Primary Care Unavailable HODA HAGER Attending Unavailable [facility] Primary Care Unavailable HODA HAGER Attending Unavailable [facility] Primary Care Unavailable TOÑA BLANKENSHIP Attending Unavailable [facility] Primary Care Unavailable BRENNAN HEAD Referring Unavailable ANAYELI SERRAI Angela Referring Unavailable JERSEYGURU, LAURIE J Attending Unavailable [facility] Primary Care Unavailable LORSON, [place] Primary Care Unavailable JODY, YASMEEN Attending Unavailable [facility] Primary Care Unavailable HAJOSEPH, BRENNAN Attending Unavailable [facility] Primary Care Unavailable CAMELIA HERRERA Attending Unavailable [facility] Primary Care Unavailable [facility] Primary Care Unavailable HODA HAGER Attending Unavailable [facility] Primary Care Unavailable JODY, YASMEEN Referring Unavailable [facility] Primary Care Unavailable PLOTHODA BERMUDEZ Attending Unavailable JODY, YASMEEN Referring Unavailable [facility] Primary Care Unavailable HODA HAGER Attending Unavailable [facility] Primary Care Unavailable HAURY, BRENNAN Attending Unavailable LORSON, PRATIMA Primary Care Unavailable BRENNAN HEAD Referring Unavailable PRATIMA ONTIVEROS Primary Care Unavailable CAMELIA HERRERA Attending Unavailable Allergies Allergy Classification Reported Allergen(s) Allergy Type Date of Onset Reaction(s) Facility (7 sources) amoxicillin; Translations: [amoxicillin] drug allergy 09-27-19 17 rash [facility] Work Phone: (3 sources) morphine drug allergy 09-27-19 17 [facility] Work Phone: (3 sources) sulfamethoxazole / trimethoprim drug allergy 09-27-19 17 [facility] Work Phone: (20 sources) Morphine; Translations: [morphine] Drug Allergy 05-02-19 23 GI Upset, Nausea (finding) [facility] (20 sources) Erythromycin; Translations: [erythromycin] Drug Allergy 05-17-19 16 [facility] (20 sources) busPIRone; Translations: [buspirone] Drug Allergy 01-30-20 23 Mental Status Change, Mental distress (finding) [facility] Comment on above: Mental State Change (20 sources) Azithromycin; Translations: [AZITHROMYCIN] Drug Allergy 10-30-19 24 Rash, Hives, GI Upset [facility] (20 sources) cefTRIAXone; Translations: [CEFTRIAXONE] Drug Allergy 01-09-20 15 Other: See Comments [facility] (20 sources) Sulfamethoxazole / Trimethoprim; Translations: [SULFAMETHOXAZOLE-TR IMETHOPRIM] Drug Allergy 09-27-19 17 Rash [facility] (1 source) Azithromycin Drug Allergy 01-19-20 25 [facility] (1 source) busPIRone Drug Allergy 01-19-20 25 [facility] (1 source) cefTRIAXone Drug Allergy 01-19-20 25 [facility] (2 sources) Erythromycin; Translations: [ERYTHROMYCIN BASE] Drug Allergy 05-17-19 16 [facility] (1 source) Morphine Drug Allergy 01-19-20 25 [facility] (1 source) Sulfonamides (Antibiotic) Drug allergy (disorder) 01-19-20 25 [facility] (1 source) Sulfonamides (Antibiotic) Allergy to substance 01-19-20 25 Hives [facility] Medications Current Medications Medication Drug Class(es) [...] XANAX 0.5 MG TAB S prn ALPRAZOLAM [id number] Migdalia Calderon EMAIL ENGINEER Comment on above: Take by mouth. Take [...] (HCC) , care, first in first trimester ([facility]) Take 1 tablet by mouth [...] BID, # 270 tab(s), 3 Refill(s), Pharmacy: [facility], 168.5, cm, 10/06/20 7:31:00 [...] once daily. Take 2 tablets by mo [facility] once daily. hydrOXYzine hydrochloride 25 [...] 1 capsule by mouth once daily PNV 490-oytu-mqzoge-dha 90 mg iron- 1 mg-200 mg cap Indications: Irregular menstrual cycle Take 1 capsule by mouth once daily. 30 capsule 3 08/24/2022 06/22/2023 Discontinued (Course of therapy completed) Start: 08-24-2022 take 1 capsule by mo uth once daily PNV 956-zdny-nygjwj-dha 90 mg iron- 1 mg-200 mg cap [...] 19 ORAL) Take by mouth once daily. [place] Active Saccharomyces boulardii (20 sources) Start: [...] 20 MG TABS q d CITALOPRAM HYDROBROMIDE [id number] Angelique Walden TRAVELING FREIGHT AGENT CELEXA TABS q d CITALOPRAM HYDROBROMIDE TABS [id number] Midgalia Calderon LPN compounded progesterone 100 mg capsule [...] Take 200 mg by mouth once daily. 255-vuuf-putos-omega3 (ONE-A-DAY -1) 27 mg iron- 800 mcg-235 mg cap (6 sources) Start: 04-02-2022 End: 11-06-2023 604-wecd-islxq-omega3 (ONE-A-DAY -1) 27 mg iron- 800 mcg-235 mg cap Start: 04-02-2022 168-i eic-vqkhe- (ONE-A-DAY -1) 27 mg iron- 800 mcg-235 mg cap vit 56-hufw-prgdf-dha (PRENATE MINI, FERR ASP GLYCIN,) 18-1-350 mg cap (5 sources) Start: 05-02-2022 take 1 capsule by mouth once daily vit 93-tfks-wltfc-dha (PRENATE MINI, FERR ASP GLYCIN,) 18-1-350 mg cap Take 1 capsule by mouth once daily. 30 capsule 11 05/02/2022 Active Comment on above: Take 1 capsule by mo [facility] once daily. progesterone 100 mg oral capsule [...] Comment on above: Take [address] [facility] once daily. Used for mood. Progesterone - [...] current use of drug therapy; Translations: [Other superintendent terminal (current) drug therapy] 10-18-2023 Episodic Other complications [...] of ; Translations: [8 weeks gestation of ([facility])] Onset: 08-15-2024 Episodic Results Test Name Value Interpretation Reference Range Facility CNOVon 02-04-2025 CNOV Office Visit (OBGYWM) -------- SMITA NGUYEN ([id number]) 1995 F Date Time Provider Department 02/04/25 2:30 PM HODA HAGER During your visit today, we recorded the following information about you: Blood pressure Weight 118/76 91.2 kg Jason Umanzor LPN 02/04/2025 2:30 PM Signed SEQUENTIAL SCREENINGS The [facility] offers sequential screenings for women who are [...] It will require an appointment with our plastic eye technician. This is not an ultrasound performed [...] the above symptoms, contact our office at [phone] and ask to speak with a nurse. After hours, you can call doctors registry at [phone] OR call [facility] at [phone] and ask to have the doctor stone dresser paged. If you consider this an emergency, dial --[phone] or go to your nearest emergency department. NEED HELP? Are you dealing with a violent or abusive relationship? Are you a victim of rape or sexual assult? Call [facility] ([place]) 24 hour Crisis Hotline: 939.135.7509 or 127-307-3232. MANUAL Your Guide to a Healthy manual is now on-line. Visit [facility].or /HealthyPregnancy Guide to download your free [...] of depression [Z86.59] Order(s):URINE OB DIP B/O [[id number]] Order #: [id number] Prescriptions as of 02/04/2025 - escitalopram oxalate [...] 19 ORAL) Take by mouth once daily. [place] - SACCHAROMYCES BOULARDII ORAL - INOSITOL [...] from you (more content not included)... Normal [facility] OB Triage Physician Noteon 1 OB Triage Physician Note [facility] Medical Records Department [address] [place] [address] OB Triage Physician Note 01/30/25 0855 MR#: [id number] Acct: [id number] Name: SMITA NGUYEN Rep #: [id number] : 1995 29 From: Toña Blankenship MD PCP: Evie Avila, TRAVELING FREIGHT AGENT-C Status:DEP CLI Y Location: [facility] HPI - General General Date [...] EDI Avila; Dr. Toña Blankenship MD Signed [facility] CNOVon 01-28-2025 CN Office Visit (OBGYWM) -------- SMITA NGUYEN ([id number]) 1995 F Date Time Provider Department 01/28/25 [...] 01/28/2025 2:31 PM Signed SEQUENTIAL SCREENINGS The [facility] offers sequential screenings for women who are [...] It will require an appointment with our plastic eye technician. This is not an ultrasound performed [...] the above symptoms, contact our office at [phone] and ask to speak with a nurse. After hours, you can call doctors registry at [phone] OR call [facility] at [phone] and ask to have the doctor stone dresser paged. If you consider this an emergency, dial 3-7-8 or go to your nearest emergency department. NEED HELP? Are you dealing with a violent or abusive relationship? Are you a victim of rape or sexual assult? Call [facility] ([place]) 24 hour Crisis Hotline: 266.385.8293 or 380-942-8287. MANUAL Your Guide to a Healthy manual is now on-line. Visit [facility].or g/HealthyPregnancy Guide to download your free [...] of depression [Z86.59] Order(s):URINE OB DIP B/O [[id number]] Order #: [id number] ROUTINE, GROUP B STREPTOCOCCUS BY PCR [[id number]] Order #: [id number]. #:[id number] Prescriptions as of 01/28/2025 - escitalopram oxalate [...] 19 ORAL) Take by mouth once daily. [place] - SACCHAROMYCES BOULARDII ORAL - INOSITOL [...] Other instruction (more content not included)... Normal [facility] ROUTINE, GROUP B ST REPTOCOCCUS BY PCRon 01-28-2025 ROUTINE, GROUP B STREPTOCOCCUS BY PCR Not detected Normal [facility] Comment on above: Performed By: #### G BPCR ####[facility] LABCLIA [id number] [address] [facility] CNOVon 01-21-2025 CNOV Office Visit (OBGYWM) -------- SMITA NGUYEN ([id number]) 1995 F Date Time Provider Department 01/21/25 2:30 PM HODA HAGER During your visit today, we recorded the following information about you: Blood pressure Weight 120/74 90.3 kg Jason Umanzor LPN 01/21/2025 2:34 PM Signed SEQUENTIAL SCREENINGS The [facility] offers sequential screenings for women who are [...] It will require an appointment with our plastic eye technician. This is not an ultrasound performed [...] the above symptoms, contact our office at [phone] and ask to speak with a nurse. After hours, you can call doctors registry at [phone] OR call [facility] at [phone] and ask to have the doctor stone dresser paged. If you consider this an emergency, dial 9- or go to your nearest emergency department. NEED HELP? Are you dealing with a violent or abusive relationship? Are you a victim of rape or sexual assult? Call [facility] ([place]) 24 hour Crisis Hotline: 305.779.5026 or 952-882-1624. MANUAL Your Guide to a Healthy manual [...] Upset Date Reviewed: 01/21/2025 Reviewed by: Jason Umanozr LPN - Fully Assessed Reason for Visit: Care [86] Primary Visit Diagnosis:Supervis ion of normal first , antepartum (HCC) [Z34.00] Other Visit Diagnoses:35 weeks gestation of (HCC) [Z3A.35] History of depression [Z86.59] History of anxiety [Z86.59] Order(s):URINE OB DIP B/O [[id number]] Order #: [id number] CONSULT TO MASSAGE THERAPY [8607532] Order #: [id number]: 1 FUTURE MASSAGE THERAPY [[id number]] Order #: [id number] Prescriptions as of 01/21/2025 - omega-3 DHA-EPA [...] 19 ORAL) Take by mouth once daily. [place] - SACCHAROMYCES BOULARDII ORAL - INOSITOL [...] abnormal O (more content not included)... Normal [facility] 01-10-2025 Cotinine Lvl <1.0 [facility] [place] [facility] Comment on above: Result Comment: This test was developed and its performance characteristics determined by [facility]. It has not been cleared or approved by the Food and Drug Administration. Cotinine levels greater than 20.0 are consistent with the use of tobacco or tobacco cessation products. Performed At: [address] [id number] Dheeraj Campbell MD Ph:[phone] Performed By: #### 0 [id number] #### [address] [address] Nicotine Lvl <1.0 [facility] Comment on above: Result Comment: This test was developed and its performance characteristics determined by [facility]. It has not been cleared or approved by the Food and Drug Administration. Nicotine levels greater than 2.0 are consistent with the use of tobacco or tobacco cessation products. Performed By: #### 0 [id number] #### [address] [place], [place] [address] CNOVon 01-07-2025 CNOV Office Visit (OBGYWM) -------- SMITA NGUYEN ([id number]) 1995 F Date Time Provider Department 01/07/25 2:30 PM NST ROOM [facility] WSTR OBGYWM During your visit [...] contractions. C/O increased anxiety and started taking [place] supplements- 1250 mg per psych. CALL OR CONTACT CENTRE OPERATOR recommendation. Denies headache, visual changes, chest pain, [...] 01/07/2025 2:12 PM Signed SEQUENTIAL SCREENINGS The [facility] offers sequential screenings for women who are [...] It will require an appointment with our plastic eye technician. This is not an ultrasound performed [...] the above symptoms, contact our office at [phone] and ask to speak with a nurse. After hours, you can call doctors registry at [phone] OR call [facility] at [phone] and ask to have the doctor stone dresser paged. If you consider this an emergency, dial 7-9-7 or go to your nearest emergency department. NEED HELP? Are you dealing with a violent or abusive relationship? Are you a victim of rape or sexual assult? Call [facility] ([place]) 24 hour Crisis Hotline: 356.883.7075 or 830-941-5763. MANUAL Your Guide to a Healthy manual is now on-line. Visit [facility].or g/HealthyPregnancy Guide to download your free [...] 19 ORAL) Take by mouth once daily. [place] - SACCHAROMYCES BOULARDII ORAL - INOSITOL ORAL - cholecalciferol, vitamin D3, (VITAMIN D3 ORAL) - MAGNESIUM GLYCINATE, BULK, MISC Problem List As Of Date (more content not included)... Normal [facility] LABORATORYOrdered By: Estately P CONTRIBUTOR_SYSTEM on 01-06-2025 Cotinine Lvl (LC) ng/mL Invalid Interpretation Code AO Sendouts SS Comment on above: Result Comment: This test was developed and its performance characteristics determined by [facility]. It has not been cleared or approved by the Food and Drug Administration. Cotinine levels greater than 20.0 are consistent with the use of tobacco or tobacco cessation products. Performed At: [facility] [address] [place], [place] [id number] Dheeraj Campbell MD Ph:[phone] Nicotine Lvl (LC) ng/mL Invalid Interpretation Code AO Sendouts SS Comment on above: Result Comment: This test was developed and its performance characteristics determined by [facility]. It has not been cleared or approved by the Food and Drug Administration. Nicotine levels greater than 2.0 are consistent with the use of tobacco or tobacco cessation products. CNOVon 12-24-2024 CNOV Office Visit (OBGYWM) -------- SMITA NGUYEN ([id number]) 1995 F Date Time Provider Department 12/24/24 [...] Diagnosis:Supervis ion of normal first , antepartum ([facility]) [Z34.00] Other Visit Diagnoses:History of [...] 19 ORAL) Take by mouth once daily. [place] - SACCHAROMYCES BOULARDII ORAL - INOSITOL [...] HODA HAGER on 12/24/24 Normal [facility] CNOVon 12-10-2024 CNOV Office Visit (OBGYWM) -------- WENDYESMEY ([id number]) 1995 F Date Time Provider Department 12/10/24 [...] 12/10/2024 2:36 PM Signed SEQUENTIAL SCREENINGS The [facility] offers sequential screenings for women who are [...] It will require an appointment with our plastic eye technician. This is not an ultrasound performed [...] the above symptoms, contact our office at [phone] and ask to speak with a nurse. After hours, you can call doctors registry at [phone] OR call [facility] at [phone] and ask to have the doctor stone dresser paged. If you consider this an emergency, dial 1--4 or go to your nearest emergency department. NEED HELP? Are you dealing with a violent or abusive relationship? Are you a victim of rape or sexual assult? Call [facility] ([place]) 24 hour Crisis Hotline: 431.786.5602 or 836-774-5308. MANUAL Your Guide to a Healthy manual [...] 19 ORAL) Take by mouth once daily. [place] - SACCHAROMYCES BOULARDII ORAL - INOSITOL ORAL - cholecalciferol, vitamin D3, (VITAMIN D3 ORAL) - MAGNESIUM GLYCINATE, BULK, MISC Problem List As Of Date 12/10/2024 Noted Resolved TMJ (temporomandibular joint syndrome) [M26.609] 9 Supervision of normal first , antepart* 5 History of Lyme disease [Z86.19] 08/15/2024 Depression [F32.A] History of anxiety [Z86.59] 12/10/2024 Other instructions from your clinician: SEQUENTIAL SCREENINGS The [facility] offers sequential screenings for women who are [...] (more content not included)... Normal [facility] CBC W Auto Differential pane l (Bld)on 11-26-2024 Basophils (Bld) [#/Vol] 0.06 10*3/uL Normal <0.11 [facility] Comment on above: Order Comment: Speci men Type: BLOOD SPECIMEN Ordering Facility: [facility] Address: [address] [place] [address] Performed By: #### C RRSCN #### [facility] CLIA [id number] [address] [place] [address] Basophils/100 WBC (Bld) 0.6 % Normal [facility] Comment on above: Order Comment: Speci men Type: BLOOD SPECIMEN Ordering Facility: [facility] Address: [address] [place] [address] Performed By: #### C RRSCN #### [facility] CLIA [id number] [address] [place] [address] Differential cell count method Nom (Bld) Auto Normal [facility] Comment on above: Order Comment: Speci men Type: BLOOD SPECIMEN Ordering Facility: [facility] Address: [address] [place] [address] Performed By: #### C RRSCN #### [facility] CLIA [id number] [address] [place] [address] Eosinophils (Bld) [#/Vol] 0.08 10*3/uL Normal <0.46 [facility] Comment on above: Order Comment: Speci men Type: BLOOD SPECIMEN Ordering Facility: [facility] Address: [address] [place] [address] Performed By: #### C RRSCN #### [facility] CLIA [id number] [address] [place] [address] Eosinophils/100 WBC (Bld) 0.8 % Normal [facility] Comment on above: Order Comment: Speci men Type: BLOOD SPECIMEN Ordering Facility: [facility] Address: [address] [place] [address] Performed By: #### C RRSCN #### [facility] CLIA [id number] [address] [place] [address] Erythrocyte distribution width (RBC) [Ratio] 12.6 % Normal 11.5-15.0 [facility] Comment on above: Order Comment: Speci men Type: BLOOD SPECIMEN Ordering Facility: [facility] Address: [address] [place] [address] Performed By: #### C RRSCN #### [facility] CLIA [id number] [address] [place] [address] Hematocrit (Bld) [Volume fraction] 33.9 % Low 36.0-46.0 [facility] Comment on above: Order Comment: Speci men Type: BLOOD SPECIMEN Ordering Facility: [facility] Address: [address] [place] [address] Performed By: #### C RRSCN #### [facility] CLIA [id number] [address] [place] [address] Hemoglobin (Bld) [Mass/Vol] 11.8 g/dL Normal 11.5-15.5 [facility] Comment on above: Order Comment: Speci men Type: BLOOD SPECIMEN Ordering Facility: [facility] Address: [address] [place] [address] Performed By: #### C RRSCN #### [facility] CLIA [id number] [address] [place] [address] Immature granulocytes (Bld) [#/Vol] 0.12 10*3/uL High <0.10 [facility] Comment on above: Order Comment: Speci men Type: BLOOD SPECIMEN Ordering Facility: [facility] Address: [address] [place] [address] Performed By: #### C RRSCN #### [facility] CLIA [id number] [address] [place] [address] Immature granulocytes/100 WBC (Bld) 1.2 % Normal [facility] Comment on above: Order Comment: Speci men Type: BLOOD SPECIMEN Ordering Facility: [facility] Address: [address] [place] [address] Performed By: #### C RRSCN #### [facility] CLIA [id number] [address] [place] [address] Lymphocytes (Bld) [#/Vol] 2.03 10*3/uL Normal 1.00-4.00 [facility] Comment on above: Order Comment: Speci men Type: BLOOD SPECIMEN Ordering Facility: [facility] Address: [address] [place] [address] Performed By: #### C RRSCN #### [facility] CLIA [id number] [address] [place] [address] Lymphocytes/100 WBC (Bld) 20.2 % Normal [facility] Comment on above: Order Comment: Speci men Type: BLOOD SPECIMEN Ordering Facility: [facility] Address: [address] [place] [address] Performed By: #### C RRSCN #### [facility] CLIA [id number] [address] [place] [address] MCH (RBC) [Entitic mass] 32.0 pg Normal 26.0-34.0 [facility] [facility] Comment on above: Order Comment: Speci men Type: BLOOD SPECIMEN Ordering Facility: [facility] Address: [address] [place] [address] Performed By: #### C RRSCN #### [facility] CLIA [id number] [address] [place] [address] MCHC (RBC) [Mass/Vol] 34.8 g/dL Normal 30.5-36.0 [facility] Comment on above: Order Comment: Speci men Type: BLOOD SPECIMEN Ordering Facility: [facility] Address: [address] [place] [address] Performed By: #### C RRSCN #### [facility] CLIA [id number] [address] [place] [address] MCV (RBC) [Entitic vol] 91.9 fL Normal 80.0-100.0 [facility] Comment on above: Order Comment: Speci men Type: BLOOD SPECIMEN Ordering Facility: [facility] Address: [address] [place] [address] Performed By: #### C RRSCN #### [facility] CLIA [id number] [address] [place] [address] Monocytes (Bld) [#/Vol] 0.74 10*3/uL Normal <0.87 [facility] Comment on above: Order Comment: Speci men Type: BLOOD SPECIMEN Ordering Facility: [facility] Address: [address] [place] [address] Performed By: #### C RRSCN #### [facility] CLIA [id number] [address] [place] [address] Monocytes/100 WBC (Bld) 7.3 % Normal [facility] Comment on above: Order Comment: Speci men Type: BLOOD SPECIMEN Ordering Facility: [facility] Address: [address] [place] [address] Performed By: #### C RRSCN #### [facility] CLIA [id number] [address] [place] [address] Neutrophils (Bld) [#/Vol] 7.04 10*3/uL Normal 1.45-7.50 [facility] Comment on above: Order Comment: Speci men Type: BLOOD SPECIMEN Ordering Facility: [facility] Address: [address] [place] [address] Performed By: #### C RRSCN #### [facility] CLIA [id number] [address] [place] [address] Neutrophils/100 WBC (Bld) 69.9 % Normal [facility] Comment on above: Order Comment: Speci men Type: BLOOD SPECIMEN Ordering Facility: [facility] Address: [address] [place] [address] Performed By: #### C RRSCN #### [facility] CLIA [id number] [address] [place] [address] Nucleated RBC (Bld) [#/Vol] 10*3/uL Normal <0.01 [facility] Comment on above: Order Comment: Speci men Type: BLOOD SPECIMEN Ordering Facility: [facility] Address: [address] [place] [address] Performed By: #### C RRSCN #### [facility] CLIA [id number] [address] [place] [address] Nucleated RBC/100 WBC (Bld) [Ratio] 0.0 /100 WBC Normal [facility] Comment on above: Order Comment: Speci men Type: BLOOD SPECIMEN Ordering Facility: [facility] Address: [address] [place] [address] Performed By: #### C RRSCN #### [facility] CLIA [id number] [address] [place] [address] Platelet mean volume (Bld) [Entitic vol] 10.7 fL Normal 9.0-12.7 [facility] Comment on above: Order Comment: Speci men Type: BLOOD SPECIMEN Ordering Facility: [facility] Address: [address] [place] [address] Performed By: #### C RRSCN #### [facility] CLIA [id number] [address] [place] [address] Platelets (Bld) [#/Vol] 219 10*3/uL Normal 150-400 [facility] Comment on above: Order Comment: Speci men Type: BLOOD SPECIMEN Ordering Facility: [facility] Address: [address] [place] [address] Performed By: #### C RRSCN #### [facility] CLIA [id number] [address] [place] [address] RBC (Bld) [#/Vol] 3.69 10*6/uL Low 3.90-5.20 [facility] Comment on above: Order Comment: Speci men Type: BLOOD SPECIMEN Ordering Facility: [facility] Address: [address] [place] [address] Performed By: #### C RRSCN #### [facility] CLIA [id number] [address] [place] [address] WBC (Bld) [#/Vol] 10.07 10*3/uL Normal 3.70-11.00 [facility] Comment on above: Order Comment: Speci men Type: BLOOD SPECIMEN Ordering Facility: [facility] Address: [address] [place] [address] Performed By: #### C RRSCN #### [facility] CLIA [id number] [address] [place] [address] CNOVon 11-26-2024 CNOV Office Visit (OBGYWM) -------- SMITA NGUYEN ([id number]) 1995 F Date Time Provider Department 11/26/24 [...] complaints. Leaving for vacation next week in [place]. O: See flow sheet Gen: No apparent distress Abd: Gravid, nontender ASSESSMENT/PLAN: 1. 27 weeks gestation of 2. Supervision of normal first , antepartum 3. Other depression 4. History of depression - Continue Lexapro 20 mg PO Daily - Continue vitamin and ASA - Traveling via plane to [place] next week- wearing compression stockings and increase [...] 11/26/2024 2:38 PM Signed SEQUENTIAL SCREENINGS The [facility] offers sequential screenings for women who are [...] It will require an appointment with our plastic eye technician. This is not an ultrasound performed [...] the above symptoms, contact our office at [phone] and ask to speak with a nurse. After hours, you can call doctors registry at [phone] OR call [facility] at [phone] and ask to have the doctor stone dresser paged. If you consider this an emergency, dial 9-1-0 or go to your nearest emergency department. NEED HELP? Are you dealing with a violent or abusive relationship? Are you a victim of rape or sexual assult? Call [facility] ([place]) 24 hour Crisis Hotline: 887.748.9437 or 473-051-5995. MANUAL Your Guide to a Healthy manual is now on-line. Visit [facility].or /HealthyPregnancy Guide to download your free [...] 19 ORAL) Take by mouth once daily. [place] - SACCHAROMYCES BOULARDII ORAL - INOSITOL ORAL - cholecalciferol, vitamin D3, (VITAMIN D3 ORAL) - MAGNESIUM GLYCINATE, BULK, MISC Problem List As Of Date 11/26/2024 Noted Resolved TMJ (temporomandibular joint syndrome) [M26.609] 9 Supervision of normal first , antepart* 5 History of Lyme disease [Z86.19] 08/15/2024 Depression [F32.A] Other instructions from your clinician: SEQUENTIAL SCREENINGS The [facility] offe (more content not included)... Normal [facility] GESTATIONAL GLUCOSE SCREEN, 1-HOUR, 50 GRAM, NON-FASTINGon 11-26-2024 Glucose [Mass/Vol] 92 mg/dL Normal 74-134 [facility] Comment on above: Order Comment: Nicole keyes Type: BLOOD SPECIMENOrdering Facility: [facility] Address: [address] [place] [address] Result Comment: [facility] Congress of Obstetricians and Gynecologists (Rock/Corey) guidelines state a gestational diabetes mellitus positive screen is made, in women not previously diagnosed with overt diabetes, when the 1 hr plasma glucose level is equal to or above 140 mg/dL. The [facility] [employer]etryl Blender Operator and [facility] recommends a 135 mg/dL cutoff. Performed By: #### G LTGST ####[facility] [id number] [place] [address] [place] Reagin and Treponema pallidu m IgG and IgM [Interp]on 11-26-2024 T. pallidum IgG+IgM IA Ql (S) Non-Reactive Normal Nonreactive [facility] Comment on above: Order Comment: Nicole keyes Type: BLOOD SPECIMEN Ordering Facility: [facility] Address: [address] [place] [address] Performed By: #### C RRSCN #### [facility] CLIA [id number] [address] [place] [address] Reagin+T pallidum IgG+IgM Se rPl-Impon 11-26-2024 Reagin and Treponema pallidum IgG and IgM [Interp] Cannot exclude recent Treponemal infection if specimen collected within 7-10 days after appearance of suspect lesions or 2-3 weeks after an exposure. Clinical correlation is required. Normal [facility] Comment on above: Order Comment: Speci men Type: BLOOD SPECIMEN Ordering Facility: [facility] Address: [address] [place] [address] Performed By: #### C RRSCN #### [facility] CLIA [id number] [address] [place] [address] CNPNon 11-20-2024 CNPN Telephone (OBGYWM) -------- SMITA NGUYEN ([id number]) 1995 F Date Time Provider Department 11/20/24 CAMELIA HERRERA During your visit today, we recorded the following information about you: Glendy Castaneda LPN 11/20/2024 5:17 PM Signed Breast pump prescription received from [employer]. Order to Mario Alberto Herrera to sign [...] 19 ORAL) Take by mouth once daily. [place] - SACCHAROMYCES BOULARDII ORAL - INOSITOL ORAL - cholecalciferol, vitamin D3, (VITAMIN D3 ORAL) - MAGNESIUM GLYCINATE, BULK, MISC Problem List As Of Date 11/20/2024 Noted Resolved TMJ (temporomandibular joint syndrome) [M26.609] 9 Supervision of normal first , antepart* 5 History of Lyme disease [Z86.19] 08/15/2024 Depression [F32.A] Encounter Status:Closed by MORA VILLARREAL on 11/24/24 Normal [facility] CNOVon 11-12-2024 CNOV Office Visit (OBGYWM) -------- WENDYSMITA ([id number]) 1995 F Date Time Provider Department 11/12/24 [...] [Z34.00] Other Visit Diagnoses:25 weeks gestation of ([facility]) [Z3A.25] Other depression [F32.89] Prescriptions as of 11/12/2024 - escitalopram oxalate (LEXAPRO) 20 mg tablet Take 1.5 tablets by mouth once daily. - aspirin, enteric coated (ECOTRIN LOW STRENGTH) 81 mg EC tablet Take 1 tablet by mouth once daily. - no115/iron/folic acid ( 19 ORAL) Take by mouth once daily. [place] - SACCHAROMYCES BOULARDII ORAL - INOSITOL [...] Encounter Status:Closed by CAMELIA HERRERA on 11/12/24 [facility] CNOVon 10-28-2024 CNOV Office Visit (PSWSTR) -------- SMITA NGUYEN ([id number]) 1995 F Date Time Provider Department 10/28/24 11:30 AM LAURIE SERRA PSWSTR During your visit today, we recorded the following information about you: Pulse Blood pressure Weight 70/minute 113/66 81.2 kg eJrseymikeLaurie blue, CALL OR CONTACT CENTRE OPERATOR.WOOD HEEL BACK LINER 10/28/2024 11:01 PM Signed FOLLOW UP - PSYCHIATRIC PROGRESS NOTE Visit Type:In person Recording using ambient [employer] software for draft documentation of the visit was discussed with the patient/authorized enrollment representative; all questions welcomed and answered. Patient/authorized enrollment representative agreed to proceed CC: Outpatient follow-up [...] due to recommendations from her midwives at [facility]. She has not needed to use hydroxyzine [...] when she learned of her brother and bqjjhb-ul-bkb's , but she became herself in May, [...] 19 ORAL) Take by mouth once daily. [place] SACCHAROMYCES BOULARDII ORAL INOSITOL ORAL cholecalciferol, [...] (more content not included)... Normal [facility] CNOVon 10-22-2024 CNOV Office Visit (OBGYWM) -------- SMITA NGUYEN ([id number]) 1995 F Date Time Provider Department 10/22/24 [...] 10/22/2024 2:35 PM Signed SEQUENTIAL SCREENINGS The [facility] offers sequential screenings for women who are [...] It will require an appointment with our plastic eye technician. This is not an ultrasound performed [...] the above symptoms, contact our office at [phone] and ask to speak with a nurse. After hours, you can call doctors registry at [phone] OR call [facility] at [phone] and ask to have the doctor stone dresser paged. If you consider this an emergency, dial 2-2-9 or go to your nearest emergency department. NEED HELP? Are you dealing with a violent or abusive relationship? Are you a victim of rape or sexual assult? Call [facility] [place] ([place]) 24 hour Crisis Hotline: 730.625.5811 or 481-130-7710. MANUAL Your Guide to a Healthy manual is now on-line. Visit [facility].or /HealthyPregnancy Guide to download your free [...] 19 ORAL) Take by mouth once daily. [place] - SACCHAROMYCES BOULARDII ORAL - INOSITOL ORAL - cholecalciferol, vitamin D3, (VITAMIN D3 ORAL) - MAGNESIUM GLYCINATE, BULK, MISC Problem List As Of Date 10/22/2024 Noted Resolved TMJ (temporomandibular joint syndrome) [M26.609] 9 Supervision of normal first , antepart* History of Lyme disease [Z86.19] 08/15/2024 Depression [F32.A] Other instructions from your clinician: SEQUENTIAL SCREENINGS The [facility] offers sequential screenings for women who are interested in screenings for chromosomal abnormalities and certain defects during a . The sequential screen combines ultrasound and blood tests to determine the risk of chromosomal abnormalities, including Down's Syndrome (Trisomy 21) and Trisomy 18, as well as open neural tube defe (more content not included)... Normal [facility] Examination level ultrasound on 10-08-2024 Indication [...] 11 oz EFW by: Hadlock (HC-AC-FL) Extended Sinter Press Operator 7.0 mm CM 3.9 mm 15% [...] normal LVOT view: normal 3-vessel view: normal 7-zaeoxd-aumyetg view: normal Heart / Thorax Situs: situs [...] Read By: Dionne Pearson M.D. MATERNAL MEDICINE [facility] Radiology Study observation (narrative) [facility] CARRIER SCREEN, STANDARDon 0 08-15-2024 CARRIER SCREEN RESULTS View results in Scanned Documents link when available. Normal [facility] Comment on above: Order Comment: Speci men Type: BLOOD SPECIMEN Ordering Facility: [facility] Address: [address] [place] [address] Performed By: #### C RRSCN #### [facility] CLIA [id number] [address] [place] [address] CBC W Auto Differential pane l (Bld)on 08-15-2024 Basophils (Bld) [#/Vol] 0.04 10*3/uL Normal <0.11 [facility] Comment on above: Order Comment: Speci men Type: BLOOD SPECIMENOrdering Facility: [facility] Address: [address] [place] [address] Performed By: #### 5 7021-8 ####[facility] MILLWNCLIA [id number] [place] [address] [place] Basophils/100 WBC (Bld) 0.4 % Normal [facility] Comment on above: Order Comment: Speci men Type: BLOOD SPECIMENOrdering Facility: [facility] Address: [address] [place] [address] Performed By: #### 5 7021-8 ####[facility] HOS[facility]IT[facility] [id number] [place] [address] [place] Differential cell count method Nom (Bld) Auto Normal [facility] Comment on above: Order Comment: Speci men Type: BLOOD SPECIMENOrdering Facility: [facility] Address: [address] [place] [address] Performed By: #### 5 7021-8 ####[facility] H[facility] [id number] [place] [address] [place] Eosinophils (Bld) [#/Vol] 0.07 10*3/uL Normal <0.46 [facility] Comment on above: Order Comment: Speci men Type: BLOOD SPECIMENOrdering Facility: [facility] Address: [address] [place] [address] Performed By: #### 5 7021-8 ####[facility] MILLWOKLIA [id number] [place] [address] [place] Eosinophils/100 WBC (Bld) 0.7 % Normal [facility] Comment on above: Order Comment: Speci men Type: BLOOD SPECIMENOrdering Facility: [facility] Address: [address] [place] [address] Performed By: #### 5 7021-8 ####[facility] [id number] [place] [address] [place] Erythrocyte distribution width (RBC) [Ratio] 12.4 % Normal 11.5-15.0 [facility] Comment on above: Order Comment: Speci men Type: BLOOD SPECIMENOrdering Facility: [facility] Address: [address] [place] [address] Performed By: #### 5 7021-8 ####[facility] ERDOMINGUEZ [id number] [place] [address] [place] Hematocrit (Bld) [Volume fraction] 37.2 % Normal 36.0-46.0 [facility] Comment on above: Order Comment: Speci men Type: BLOOD SPECIMENOrdering Facility: [facility] Address: [address] [place] [address] Performed By: #### 5 7021-8 ####[facility] ERDOMINGUEZ [id number] [place] [address] [place] Hemoglobin (Bld) [Mass/Vol] 13.1 g/dL Normal 11.5-15.5 [facility] Comment on above: Order Comment: Speci men Type: BLOOD SPECIMENOrdering Facility: [facility] Address: [address] [place] [address] Performed By: #### 5 7021-8 ####[facility] ERDOMINGUEZ [id number] [place] [address] [place] Immature granulocytes (Bld) [#/Vol] 0.05 10*3/uL Normal <0.10 [facility] Comment on above: Order Comment: Speci men Type: BLOOD SPECIMENOrdering Facility: [facility] Address: [address] [place] [address] Performed By: #### 5 7021-8 ####[facility] ERNCLIA [id number] [place] [address] [place] Immature granulocytes/100 WBC (Bld) 0.5 % Normal [facility] Comment on above: Order Comment: Speci men Type: BLOOD SPECIMENOrdering Facility: [facility] Address: [address] [place] [address] Performed By: #### 5 7021-8 ####[facility] LUISVikiNCRANDI [id number] [place] [address] [place] Lymphocytes (Bld) [#/Vol] 2.32 10*3/uL Normal 1.00-4.00 [facility] Comment on above: Order Comment: Speci men Type: BLOOD SPECIMENOrdering Facility: [facility] Address: [address] [place] [address] Performed By: #### 5 7021-8 ####[facility] [id number] [place] [address] [place] Lymphocytes/100 WBC (Bld) 24.8 % Normal [facility] Comment on above: Order Comment: Speci men Type: BLOOD SPECIMENOrdering Facility: [facility] Address: [address] [place] [address] Performed By: #### 5 7021-8 ####[facility] [id number] [place] [address] [place] MCH (RBC) [Entitic mass] 31.4 pg Normal 26.0-34.0 [facility] Comment on above: Order Comment: Speci men Type: BLOOD SPECIMENOrdering Facility: [facility] Address: [address] [place] [address] Performed By: #### 5 7021-8 ####[facility] ERNCLIA [id number] [place] [address] [place] MCHC (RBC) [Mass/Vol] 35.2 g/dL Normal 30.5-36.0 [facility] Comment on above: Order Comment: Speci men Type: BLOOD SPECIMENOrdering Facility: [facility] Address: [address] [place], [place] [address] Performed By: #### 5 7021-8 ####[facility] ERNCLIA [id number] [place] [address] [place] MCV (RBC) [Entitic vol] 89.2 fL Normal 80.0-100.0 [facility] Comment on above: Order Comment: Speci men Type: BLOOD SPECIMENOrdering Facility: [facility] Address: [address] [place] [address] Performed By: #### 5 7021-8 ####[facility] ERNCLIA [id number] [place] [address] [place] Monocytes (Bld) [#/Vol] 0.55 10*3/uL Normal <0.87 [facility] Comment on above: Order Comment: Speci men Type: BLOOD SPECIMENOrdering Facility: [facility] Address: [address] [place] [address] Performed By: #### 5 7021-8 ####[facility] ERNCLIA [id number] [place] [address] [place] Monocytes/100 WBC (Bld) 5.9 % Normal C [facility] Comment on above: Order Comment: Speci men Type: BLOOD SPECIMENOrdering Facility: [facility] Address: [address] [place] [address] Performed By: #### 5 7021-8 ####[facility] ERNCLIA [id number] [place] [address] [place] Neutrophils (Bld) [#/Vol] 6.31 10*3/uL Normal 1.45-7.50 [facility] Comment on above: Order Comment: Speci men Type: BLOOD SPECIMENOrdering Facility: [facility] Address: [address] [place] [address] Performed By: #### 5 7021-8 ####[facility] HOSPITALA [id number] [place] [address] [place] Neutrophils/100 WBC (Bld) 67.7 % Normal [facility] Comment on above: Order Comment: Speci men Type: BLOOD SPECIMENOrdering Facility: [facility] Address: [address] [place] [address] Performed By: #### 5 7021-8 ####[facility] [id number] [place] [address] [place] Nucleated RBC (Bld) [#/Vol] 10*3/uL Normal <0.01 [facility] Comment on above: Order Comment: Speci men Type: BLOOD SPECIMENOrdering Facility: [facility] Address: [address] [place] [address] Performed By: #### 5 7021-8 ####[facility]NCL[facility] [id number] [place] [address] [place] Nucleated RBC/100 WBC (Bld) [Ratio] 0.0 /100 WBC Normal [facility] Comment on above: Order Comment: Speci men Type: BLOOD SPECIMENOrdering Facility: [facility] Address: [address] [place] [address] Performed By: #### 5 7021-8 ####[facility] ERNCLI [id number] [place] [address] [place] Platelet mean volume (Bld) [Entitic vol] 10.5 fL Normal 9.0-12.7 [facility] Comment on above: Order Comment: Speci men Type: BLOOD SPECIMENOrdering Facility: [facility] Address: [address] [place] [address] Performed By: #### 5 7021-8 ####[facility] ERNCLIA [id number] [place] [address] [place] Platelets (Bld) [#/Vol] 264 10*3/uL Normal 150-400 [facility] Comment on above: Order Comment: Speci men Type: BLOOD SPECIMENOrdering Facility: [facility] Address: [facility] [place] [address] Performed By: #### 5 7021-8 ####[facility] OSMINWNCLIA [id number] [place] [address] [place] RBC (Bld) [#/Vol] 4.17 10*6/uL Normal 3.90-5.20 [facility] Comment on above: Order Comment: Speci men Type: BLOOD SPECIMENOrdering Facility: [facility] Address: [address] [place] [address] Performed By: #### 5 7021-8 ####[facility] LUISOATMANNCLIA [id number] [place] [address] [place] WBC (Bld) [#/Vol] 9.34 10*3/uL Normal 3.70-11.00 [facility] Comment on above: Order Comment: Speci men Type: BLOOD SPECIMENOrdering Facility: [facility] Address: [address] [place] [address] Performed By: #### 5 7021-8 ####[facility] LUISWNCLIA [id number] [place] [address] [place] Examination level ultrasound on 08-15-2024 Indication First trimester anatomic survey Impression The patient is referred for a first trimester anatomy scan including nuchal translucency measurement as clinically indicated. - Single, live, intrauterine . - Pena rump length measurement is consistent with the [...] view: visualized 4-chamber view with color: visualized 8-razftv-psrkpje view: normal Abdominal cord insertion: normal Stomach: [...] Read By: Dionne Pearson M.D. MATERNAL MEDICINE [facility] Radiology Study observation (narrative) [facility] HBV surface Ag Ser Qlon 07-31 HBV surface Ag Ql (S) Negative Normal Negative [facility] Comment on above: Order Comment: Speci men Type: BLOOD SPECIMENOrdering Facility: [facility] Address: [address] [place] [address] Performed By: #### 5 195-3, 19538-1, 60388-4 ####[facility] LABCLIA [id number] [place] [address] [place] HCV Ab Ser Qlon 08-15-2024 HCV Ab Ql (S) Negative Normal Negative [facility] Comment on above: Order Comment: Speci men Type: BLOOD SPECIMEN [facility]ing [facility] Address: [address] [place] [address] Result Comment: The result suggests no evidence of infection with Hepatitis C virus. Should recent infection be suspected, repeat testing may be considered 4-6 weeks after this draw. Performed By: #### C RRSCN #### [facility] CLIA [id number] [address] [place] [address] HIV 1+2 Ab IA Qlon HIV 1 and 2 Ab IA.rapid Nom (S/P/Bld) Normal [facility] Comment on above: Order Comment: Speci men Type: BLOOD SPECIMENOrdering Facility: [facility] Address: [address] [place] [address] Result Comment: Test not indicated. Performed By: #### 5 195-3, 63058-2, 09408-0 ####[facility] LABCLIA [id number] [place] [address] [place] HIV 1+2 Ab+HIV1 p24 Ag IA Ql Non-Reactive Normal Nonreactive [facility] Comment on above: Order Comment: Speci men Type: BLOOD SPECIMENOrdering Facility: [facility] Address: [address] [place] [address] Performed By: #### 5 195-3, 72063-3, 40170-5 ####[facility] LABIA [id number] [place] [address] [place] HIV immunoassay testing algorithm interpretation (S/P/Bld) [Interp] Normal [facility] Comment on above: Order Comment: Speci men Type: BLOOD SPECIMENOrdering Facility: [facility] Address: [address] [place] [address] Result Comment: No e vidence of HIV-1 or HIV-2 infection. Should recent infection be suspected, repeat testing may be considered 2-3 weeks after this draw. [place] Rev. Code 3701.243(E): This information has been [...] or diagnoses. Performed By: #### 5 195-3, 68091-5, 81093-2 ####[facility] LABCLIA [id number] [address] [facility] HbA1c (Bld)on 08-15-2024 Average glucose Estimated from glycated hemoglobin (Bld) [Mass/Vol] 85 mg/dL Normal [facility] Comment on above: Order Comment: Nicole men Type: BLOOD SPECIMEN [facility] Address: [address] [place] [address] Result Comment: eAG: (Estimated average glucose) is a calculated value from HgbA1c and is enrollment representative of the average blood glucose level in the last 2-3 month period. Performed By: #### C RRSCN #### [facility] CLIA [id number] [address] [place] [address] HbA1c (Bld) [Mass fraction] 4.6 % Normal 4.3-5.6 [facility] Comment on above: Order Comment: Nicole [facility] Type: BLOOD SPECIMEN [facility] Address: [address] [place] [address] Result Comment: Amer ican Diabetes Association guidelines indicate that patients with HgbA1c in the range 5.7-6.4% are at increased risk for development of diabetes, and intervention by lifestyle modification may be beneficial. HgbA1c greater or equal to 6.5% is considered diagnostic of diabetes. Performed By: #### C RRSCN #### [facility] CLIA [id number] [address] [place] [address]35 [id number] PLUSon 08-15-2024 Cell-free DNA./Cell-free DNA.total Dosage of chromosome-specific cfDNA (cfDNA) [Molar fraction] 19% Normal [facility] Comment on above: Order Comment: Speci men Type: BLOOD SPECIMEN [facility] Address: [address] [place] [address] Performed By: #### C RRSCN #### [facility] CLIA [id number] [address] [place] [address] Chr 13+18+21+X+Y aneuploidy Dosage of chromosome-specific cfDNA Ql (cfDNA) Negative Normal [facility] Comment on above: Order Comment: Speci men Type: BLOOD SPECIMEN [facility] Address: [address] [place] [address] Performed By: #### C RRSCN #### [facility] CLIA [id number] [address] [place] [address] Chr 21 trisomy Dosage of chromosome-specific cfDNA Ql (cfDNA) Negative Normal [facility] Comment on above: Order Comment: Speci men Type: BLOOD SPECIMEN [facility] Address: [address] [place] [address] Performed By: #### C RRSCN #### [facility] CLIA [id number] [address] [place] [address] Chr X and Y aneuploidy risk Sequencing Ql (cfDNA) [Interp] Not detected Normal [facility] Comment on above: Order Comment: Speci men Type: BLOOD SPECIMEN [facility] Address: [address] [place] [address] Result Comment: Not Detected Not Detected Performed By: #### C RRSCN #### [facility] CLIA [id number] [address] [place] [address]95 Citation Bola (Reference lab test) Comment Normal [facility] Comment on above: Order Comment: Speci men Type: BLOOD SPECIMEN [facility] Address: [address] [place] [address] Result Comment: 1. Joshua ROSAS, et al. Jade Med. 2012;14(3):296-305. 2. Cristina CONCEPCION et al. Prenat Diag. 2013;33(6):591-597. 3. Landen Cerda, et al. Clin Chem. 2015 Apr;61(4):608-616. 4. Neyda ROSAS et al. Jade Med. 2011;13(11):913-920. 5. ACOG/SMFM Practice Bulletin No. 226, Jan 2020. Performed By: #### C RRSCN #### [facility] CLIA [id number] [address] [place] [id number] Gestational age Estimated from conception date Dooley Normal [facility] Comment on above: Order Comment: Nicole keyes Type: BLOOD SPECIMEN [facility] Address: [address] [place] [address] Performed By: #### C RRSCN #### [facility] CLIA [id number] [address] [place] [address] GESTATIONALAGE AGE > OR = 9W Yes Normal [facility] Comment on above: Order Comment: Nicole keyes Type: BLOOD SPECIMEN [facility] Address: [address] [place] [address] Performed By: #### C RRSCN #### [facility] CLIA [id number] [address] [place] [address] Laboratory comment Bola (Report) Comment Normal [facility] Comment on above: Order Comment: Nicole keyes Type: BLOOD SPECIMEN [facility] Address: [address] [place] [address] Result Comment: The MaterniT(R) 21 PLUS laboratory-developed [...] By: #### C RRSCN #### [facility] CLIA [id number] [address] [place], [place] [id number] voice studies director name Nom (Provider) Comment Normal [facility] Comment on above: Order Comment: Nicole keyes Type: BLOOD SPECIMEN [facility] Address: [address] [place] [address] Result Comment: This specimen showed an expected representation of chromosome 21, 18 and 13 material. Clinical correlation is suggested. Comment Dajuan Luna MD, PhD, Director, [employer] Performed By: #### C [facility] #### [facility] CLIA [id number] [address] [place] [address] LIMITATIONS OF THE TEST Comment Normal C [facility] Comment on above: Order Comment: Speci men Type: BLOOD SPECIMEN [facility] Address: [address] [place] [address] Result Comment: Ashley rogel the results of [...] By: #### C RRSCN #### [facility] CLIA [id number] [address] [place] [address] Monosomy X risk Dosage of chromosome-specific cfDNA Ql (Plasma cell-free+WBC DNA) [Interp] Not detected Normal [facility] Comment on above: Order Comment: Nicole keyes Type: BLOOD SPECIMEN [facility] Address: [address] [place] [address] Performed By: #### C RRSCN #### [facility] CLIA [id number] [address] [place] [address] NEGATIVE PREDICTIVE VALUE Note Normal [facility] Comment on above: Order Comment: Nicole keyes Type: BLOOD SPECIMEN [facility] Address: [address] [place] [address] Result Comment: The Negative Predictive Value (NPV) for trisomy 21, 18, and 13 is greater than 99%. The NPV for SCA and ESS cannot be calculated as SCA and ESS are only reported when an abnormality is detected. Performed By: #### C RRSCN #### [facility] CLIA [id number] [address] [place] [address] PERFORMANCE CHARACTERISTICS Note Normal [facility] Comment on above: Order Comment: Nicole keyes Type: BLOOD SPECIMEN [facility] Address: [address] [place] [address] Result Comment: ! Sex ! Accuracy: 99.4% [...] By: #### C RRSCN #### [facility] CLIA [id number] [address] [place] [address]48 POSITIVE PREDICTIVE VALUE N/A Normal [facility] Comment on above: Order Comment: Speci men Type: BLOOD SPECIMEN [facility] Address: [address] [place] [address] Performed By: #### C RRSCN #### [facility] CLIA [id number] [address] [place] [address] Reference Lab Test Method Comment Normal [facility] Comment on above: Order Comment: Speci men Type: BLOOD SPECIMEN [facility] Address: [address] [place] [address] Result Comment: See Notes Circulating cell-free DNA [...] By: #### C RRSCN #### [facility] CLIA [id number] [address] [place] [address] Service comment (Unsp spec) [Interp] Comment Normal [facility] Comment on above: Order Comment: Speci men Type: BLOOD SPECIMEN [facility] Address: [address] [place] [address] Result Comment: See Notes [employer] is a subsidiary of [employer], using the brand [employer]. This test was developed and its performance characteristics determined by [employer]. It has not been cleared or approved by the Food and Drug Administration. This laboratory is certified under the Clinical Laboratory Improvement Amendments (CLIA) as qualified to perform high complexity clinical laboratory testing and accredited by the [employer] (CAP). If there is future clinical need for adding MaterniT GENOME testing, this specimen will be available until term. [facility] samples will not be retained beyond 60 days. [facility] patients will have to send a new sample for re-sequencing ([facility] Test Code: 760065). Performed By: #### C RRSCN #### [facility] CLIA [id number] [address] [place] [address] Sex Dosage of chromosome-specific cfDNA Nom (cfDNA) Comment Normal [facility] Comment on above: Order Comment: Speci men Type: BLOOD SPECIMEN [facility] Address: [address] [place] [address] Result Comment: Cons istent with Female Performed By: #### C RRSCN #### [facility] CLIA [id number] [address] [place] [address] Test performance information Bola (Unsp spec) Comment Normal [facility] Comment on above: Order Comment: Speci men Type: BLOOD SPECIMEN [facility] Address: [address] [place] [address] Result Comment: The performance characteristics of the MaterniT(R) 21 PLUS laboratory-developed test (LDT) have been determined in a clinical validation study with women at increased risk for chromosomal aneuploidy.[1-4] Performed By: #### C RRSCN #### [facility] CLIA [id number] [address] [place] [address]240 Trisomy 13 risk Dosage of chromosome-specific cfDNA Ql (cfDNA) [Interp] Negative Normal [facility] Comment on above: Order Comment: Speci men Type: BLOOD SPECIMEN [facility] Address: [address] [place] [address] Performed By: #### C RRSCN #### [facility] CLIA [id number] [address] [place], [place] [id number] Trisomy 18 risk Dosage of chromosome-specific cfDNA Ql (Plasma cell-free+WBC DNA) [Interp] Negative Normal [facility] Comment on above: Order Comment: Speci men Type: BLOOD SPECIMEN [facility] Address: [address] [place] [address] Performed By: #### C RRSCN #### [facility] CLIA [id number] [facility] [place] [address] [place] [address] RUBELLA IGG ANTIBODYon 08-15 RUBELLA IGG AB, QUAL Positive Normal Positive [facility] Comment on above: Order Comment: Speci men Type: BLOOD SPECIMEN [facility] Address: [address] [place] [address] Result Comment: The result suggests recent or past exposure to Rubella virus or history of Rubella vaccination. Positive result may also be seen due to presence of passively-transferred antibodies. Please correlate with patient's history. Performed By: #### R UBIGG #### [facility] CLIA [id number] [address] [place] [address] [place] Reagin and Treponema pallidu m IgG and IgM [Interp]on 08-15-2024 T. pallidum IgG+IgM IA Ql (S) Non-Reactive Normal Nonreactive [facility] Comment on above: Order Comment: Speci men Type: BLOOD SPECIMENOrdering Facility: [facility] Address: [address] [place] [address] Performed By: #### 5 195-3, 67703-5, 58041-9 ####[facility] LABCLIA [id number] [place] [address] [place] Reagin+T pallidum IgG+IgM Se rPl-Impon 08-15-2024 Reagin and Treponema pallidum IgG and IgM [Interp] Cannot exclude recent Treponemal infection if specimen collected within 7-10 days after appearance of suspect lesions or 2-3 weeks after an exposure. Clinical correlation is required. Normal [facility] Comment on above: Order Comment: Speci men Type: BLOOD SPECIMENOrdering Facility: [facility] Address: [address] [place] [address] Performed By: #### 5 195-3, 11352-2, 57071-3 ####[facility] LABCLIA [id number] [place] [address] [place] TYPE + SCREEN PRENATALon ABO O Normal [facility] Comment on above: Order Comment: Speci men Type: BLOOD SPECIMEN [facility] Address: [address] [place] [address] Performed By: #### C RRSCN #### [facility] CLIA [id number] [address] [place] [address] Rh Nom (Bld) Positive Normal [facility] Comment on above: Order Comment: Speci men Type: BLOOD SPECIMEN [facility] Address: [address] [place] [address] Performed By: #### C RRSCN #### [facility] CLIA [id number] [address] [place] [address] TYPE AND SCREEN EXPIRATION 08/18/2024 23:59 Normal [facility] Comment on above: Order Comment: Speci men Type: BLOOD SPECIMEN [facility] Address: [address] [place] [address] Performed By: #### C RRSCN #### [facility] CLIA [id number] [address] [place] [address] Bacteria Ur Culton Bacteria identified Cx Nom (U) CULTURE, URINE: No growth (<1,000 CFU/ml) Normal [facility] Comment on above: Performed By: #### 6 30-4 ####[facility] LABCLIA [id number] [place] [address] [place] C. trachomatis+N. gonorrhoea e DNA AD+probe Ql (Unsp spec)on 07-18-2024 C. trachomatis rRNA AD+probe Ql (Unsp spec) Not detected Normal Not detected [facility] Comment on above: Order Comment: Speci men Type: BLOOD SPECIMEN [facility] Address: [address] [place] [address] Performed By: #### C RRSCN #### [facility] CLIA [id number] [address] [place] [address] [place] [address] N. gonorrhoeae rRNA AD+probe Ql (Unsp spec) Not detected Normal Not detected [facility] Comment on above: Order Comment: Speci men Type: BLOOD SPECIMEN [facility] Address: [address] [place] [address] Performed By: #### C RRSCN #### [facility] CLIA [id number] [address] [place] [address] POC VP REVENUE CYCLE ULTRASOUNDon 07-19-19 Indication Confirmation of intrauterine . [...] Read By: Yasmeen Vera CNP MATERNAL MEDICINE [facility] Radiology Study observation (narrative) [facility] TRICHOMONAS VAGINALIS NAATon 07-18-2024 T. vaginalis DNA AD+probe Ql (Unsp spec) Not detected Normal Not detected [facility] Comment on above: Order Comment: Speci men Type: BLOOD SPECIMEN [facility] Address: [address] [place] [address] Performed By: #### C RRSCN #### [facility] CLIA [id number] [address] [place] [address] [place] [address] [place] 07-15-2024 CNPN Telephone (OBGYWM) -------- SMITA NGUYEN ([id number]) 1995 F Date Time Provider Department 07/15/24 [...] she is unable to speak to someone. UJNIOR Rodriguez Tara, RN 07/15/2024 3:31 PM Signed [...] Status:Closed by PAMELA COOPER on 07/15/24 Normal [facility] CNOVon 06-13-2024 CNOV Office Visit (OBGYWM) -------- SMITA NGUYEN ([id number]) 1995 F Date Time Provider Department 06/13/24 [...] Living0 SAB0 IAB0 Ectopic0 Multiple0 Live Births0 Shook Splicer History LMP: 05/18/2024 (Exact Date), Having periods Age at Menarche: Age at First : Age at Menopause: Shook Splicer History Comments: Sexual Activity: Yes; Male Contraception: [...] discussed with the Patient or Patient's Authorized Dictaphone Typist. As applicable, any other physician, advance practice provider, medical student, or other health professional student that will be observing or involved in the sensitive examination for educational or training purposes was discussed with the Patient or Authorized Dictaphone Typist. The Patient or Authorized Dictaphone Typist has agreed to proceed with the sensitive [...] (more content not included)... Normal [facility] US [place] 05-19-2024 Indication irregular menses, [...] Read By: Marcie Shields M.D. MATERNAL MEDICINE [facility] [place] 05-16-2024 Radiology Study observation (narrative) [facility] C[facility]N Telephone (OBGYWM) -------- SMITA NGUYEN ([id number]) 1995 F Date Time Provider Department 05/09/24 BRENNAN HEAD During your visit today, we recorded the following information about you: Allergies As of Date: 05/09/2024 Noted Allergy Reaction AZITHROMYCIN 10/30/2023 2 - Rash 4 - Hives 8 - GI Upset BUSPIRONE 01/29/2023 1 - Mental Status Change MORPHINE 05/02/2022 8 - GI Upset Date Reviewed: 05/07/2024 Reviewed by: Brennan Head APRN.[employer] - Fully Assessed Reason for Visit: Results [...] Encounter Status:Closed by BRENNAN HEAD on 05/14/24 [facility] Bacteria Ur Culton Bacteria identified Cx Nom [...] >32 , Resistant >64 Abnormal [facility] Comment on above: Performed By: #### 6 30-4 ####[facility] LABCLIA [id number] [address] [place] [facility] CNOVon 05-07-2024 CNOV Office Visit (OBGYWRobert) -------- SMITA NGUYEN ([id number]) 1995 F Date Time Provider Department 05/07/24 10:45 AM BRENNAN HEAD During your visit today, we recorded the following information about you: Blood pressure Weight Last Period 110/60 76.2 kg 04/19/24 Brennan Head APRN.[employer] 05/07/2024 11:12 AM Signed Flight Operations Manager offered: Patient declines. Smita Nguyen is a [...] L0 SAB0 IAB0 Ectopic0 Multiple0 Live Births0 Shook Splicer History LMP: 03/22/2024 (Exact Date), Having periods Age at Menarche: Age at First : Age at Menopause: Shook Splicer History Comments: Sexual Activity: Yes; Male Contraception: [...] or incontinence. + dysuria, odor Expanded ROS: PERSONAL PROPERTY ASSESSOR: Negative for abnormal vaginal bleeding, abnormal vaginal [...] up to discuss preconception/fert ility Brennan Head APRN.[employer] Medical Decision Making: Problems: Low: Acute, uncomplicated [...] Date Reviewed: 05/07/2024 Reviewed by: Brennan Head APRN.[facility] - Fully Assessed Reason for Visit: Vaginal Problem [117] Urinary Problem [252] Primary Visit Diagnosis:Dysuria [R30.0] Other Visit Diagnoses:Vaginal discharge [N89.8] Desire for [Z31.9] Irregular menstrual cycle [N92.6] Order(s):UA DIP, URINE (POC) [9581575] Order #: [id number]. #:[id number] BACTERIAL CULTURE, URINE [SQURCUL] Order #: [id number]. #:[id number] nitrofurantoin monohydrate and macrocrystal (MACROBID) 100 mg capsuleTake 1 capsule by mouth two times a day for 7 days.Disp: 14 capsuleRfl: 0 PELVIC US I [[id number]] Order #: [id number] (more content not included)... Normal [facility] UA DIP, URINE (POC)on 2024 BILIRUBIN UA (POCT) Negative Negative [facility] CLARITY UA (POCT) Clear [facility] COLOR UA (POCT) Yellow [facility] GLUCOSE UA (POCT) Negative Negative mg/dL [facility] Hemoglobin Ql (U) Moderate Abnormal Negative [facility] Interpretation and review of laboratory results Abnormal [facility] KETONE UA (POCT) Negative Negative mg/dL [facility] LEUKOCYTES UA (POCT) Moderate Abnormal Negative [facility] NITRITE UA (POCT) Negative Negative [facility] PH UA (POCT) 6.0 4.5 - 8.0 [facility] Protein Ql (U) Negative Negative mg/dL [facility] SPECIFIC GRAVITY UA (POCT) 1.020 1.005 - 1.030 [facility] UROBILINOGEN UA (POCT) 0.2 Normal E.U./d L [facility] Location:[facility], [address] [place], [place], [id number] [place] [address] POINT OF CARE [facility] BACTERIAL VAGINOSIS NAATon 1 05-29-2023 Lactobacillus crispatus+gasseri+jense shakira + Gardnerella vaginalis + Atopobium vaginae rRNA DA+probe Ql (Vag fld) Not detected Normal Not detected [facility] Comment on above: Order Comment: Speci men Type: SWABOrdering Facility: [facility] Address: [address] [place] [address] Performed By: #### C VTV, BVAMP ####[facility] LABCLIA [id number] [place] [address] [place] MYRA/TRICHOMONAS NAATon 1 05-29-2023 C. glabrata RNA AD+probe Ql (Vag fld) Not detected Normal Not detected [facility] Comment on above: Order Comment: Speci men Type: SWABOrdering Facility: [facility] Address: [address] [place] [address] Performed By: #### C VTV, BVAMP ####[facility] LABCLIA [id number] [place] [address] [place] Myra sp DNA AD+probe Ql (Vag fld) Not detected Normal Not detected [facility] Comment on above: Order Comment: Speci men Type: SWABOrdering Facility: [facility] Address: [address] [place] [address] Result Comment: The Myra species group target includes C. albicans, C. tropicalis, C. parapsilosis, and C. dubliniensis. Performed By: #### C VTV, BVAMP ####[facility] LABCLIA [id number] [address] [place] T. vaginalis DNA AD+probe Ql (Unsp spec) Not detected Normal Not detected [facility] Comment on above: Order Comment: Speci men Type: SWABOrdering Facility: [facility] Address: [address] [place] [address] Performed By: #### C VTV, BVAMP ####[facility] LABCLIA [id number] [place] [address] [place] CNOVon 03-28-2024 CNOV Office Visit (OBGYWM) -------- SMITA NGUYEN ([id number]) 1995 F Date Time Provider Department 03/28/24 [...] L0 SAB0 IAB0 Ectopic0 Multiple0 Live Births0 Shook Splicer History LMP: 03/22/2024 (Exact Date), Having periods Age at Menarche: Age at First : Age at Menopause: Shook Splicer History Comments: Sexual Activity: Yes; Male Contraception: [...] discussed with the Patient or Patient's Authorized Dictaphone Typist. As applicable, any other physician, advance practice provider, medical student, or other health professional student that will be observing or involved in the sensitive examination for educational or training purposes was discussed with the Patient or Authorized Dictaphone Typist. The Patient or Authorized Dictaphone Typist has agreed to proceed with the sensitive examination. (Sensitive examination includes inspection and/or palpation of the breasts, pelvis, prostate and anorectal regions). EXAM: BP 110/74 Wt 172 lb (78.0kg) LMP 03/22/2024 GENERAL: pleasant, female in no apparent distress HEENT: Normocephalic and atraumatic NECK: Supple and full range of motion PELVIC: external genitalia normal, normal Bartholin's glands, urethra, Manson's glands, no vulvar lesions, no cervical lesions, [...] [N89.8] Order(s):MYRA/T RICHOMONAS NAAT [SQCVTV] Order #: [id number]. #:[id number] BACTERIAL VAGINOSIS NAAT [SQBVAMP] Order #: [id number]. #:[id number] Prescriptions as of 03/28/2024 - progesterone micronized [...] (more content not included)... Normal [facility] HIGH RISK HUMAN PAPILLOMA ANTONELLA (HPV), PCR FOR DETECTION AND GENOTYPINGOrdered By: Asha Mackenzie on 02-08-2024 HPV 16 Ag Ql (Unsp spec) Not detected Not detected [facility] HPV 18 Ag Ql (Unsp spec) Not detected Not detected [facility] HPV 31+33+35+39+45+51+52+56 +58+59+66+68 DNA AD+probe Ql (Cvx) Not detected Not detected [facility] Comment on above: High Risk HPV Other Type includes HPV types 31, 33, 35, 39, 45, 51, 52, 56, 58, 59, 66 and 68. Interpretation and review of laboratory results Normal [facility] This test was developed and its performance characteristics determined by [facility]'s [facility] [place] ([facility] It has not been cleared or approved by the FDA. -[facility] is regulated under CLIA as qualified to perform high-complexity testing. This test is used for clinical purposes. It should not be regarded as investigational or for research. [facility] No Panel InformationOrdered By: Naz Salazar on 02-08-2024 [facility] PAP TESTOrdered By: Naz garcia on 02-08-2024 Case Report Gynecologic Cytology Report Case: [id number] Authorizing Provider: Camelia Herrera APRN.CNM Collected: 02/04/2024 03:18 PM Ordering Location: OB/Gynecology Received: 02/04/2024 04:29 PM First Screen: Naz Salazar, ERIKA, ASCP Specimen: Pap Test, ThinPrep, Cervix [facility] Clinical History Routine Exam [facility] Interpretation Negative [facility] LMP 01/15/2024 [facility] Pap Disclaimer p0hcnYTiXDXvi7njBG VmbGFuZzEwMzNcZnRu YmpcdWMxIHtccnRmMV ynf6DyT2EzErHeVSta bnNpXGRlZmxhbmcxMD UyOCB3ogJcFHCjCNgp JNOhHQsmLk4yfBOdiY pkXhUrUZMje7howvHP entdiIr6s0dtKRAcJu K2uYIyDVlnL0jfdnTz uRYuEGBgBYz3xY84GX OnyI3mcLMyORjqpkYa MlM9NJawYGFjYhT9DO CjpMNlOMBzX8dlGLCb XGdyZWVuMFxibHVlMC F3jCjcu8X7jIEawSNd dHtcZjBcZnMyMiBOb3 BjJQj5lNxzT2BsJMTj PsL7rZMoEUMxOEmtCP AaYWGpvoB1yO84XTds xoV7cJIfn5Wcv47rt8 18hC5uxDGyROI5QKHb PZWfyEHuQPEsJOX7KZ TxjBLcK5yqPSClUR7a cmdyMTgwMFxtYXJndD L6JTMunGGwE3SlVCDo SLwbJARequt6RgMpEy 4byHRagCcfYCyxf0zq z2jkmKZgLgf5FTQnOl NzFpjaFYqfg4Dna0zd PPTdgy4mVED6xHUotJ bnz5E6kWSgNWJgoOBk rrAoBKUnAjI1YPneEN 5nxc38RBWxAYY7ab0i bGNccGdicmRyaGVhZF yhQ5PvABGah990BXMe K8DrYFWwu0T5mxNqLw XwSQPliFP7tgQ5CKXm CTq2oVRiviL9qcKztR HrQ9djrD0zZCLvPF3u pnqdb7ryLVflXImhMI IkyCJ2ceC9LKTcwKZg A5GwiF7bILVtBSloBB Qtjir7UdZwMu1ohOLn eTcyMFxzYmtwYWdlXH BnbmNvbnRccGduZGVj XHBsYWluXHBsYWluXG YwXGZzMjRccWxccGxh hO0aUiTsYoAqLmanVX 4yIVMrF1ckkKQfZQUl UUAsA2jzHbLmvY6tkB gpCDzvpkQ5DNIbFBAH FKKvN10oDHNfjSIbRH JeN3BhWX7bjilmcRTs aEMhy2OaT2VhrqshCS yrO0MvW0KoNkWxLuAy y7ZatzCiKIEkfwFcdd GxpAh3xnJfM1B2vcP9 yPHbTATpbQChX7XuBU 5pbmcgdGVzdHMsIGVt rBmmy2e6sJ4iCODxJO BuZWVkIGZvciByZXNj cmVlbmluZyBhdCByZW WiqV2llmDaDBZmwsSa cnZhbHMsIGFuZCBjbG mnbMYwlPRlq8PzLWnz kLpjvz3kjTriqF6lLo FfYfUnGdpzXD6iOZVj W8iiuCVfWDOtQJBpW3 kmTcQbgX4wzYovRIlg ucOxRCSehn01 [facility] PAP Tomographic Tech Comment s5xovKJrZBHjv1ntCM VmbGFuZzEwMzNcZnRu YmpcdWMxIHtccnRmMV eio3HhU6LqBgKiQEmm bnNpXGRlZmxhbmcxMD JsNBG8peQvYHUtDXvi ECXnPTyfHt3xlGZnwM bhNnScMIEfz6dauxKU npnkbHc6a8muQTYnMx D8fMFlNQpwI4drxiMb aODoRJBmSTz5lP85JH UiaC9xhSEgCWoxqkNa HpX0TZvvDFFoHeX8GC IpxSQyTSIsV2raMRUv XGdyZWVuMFxibHVlMC G5kDktd3S1xNRqoKRy dHtcZjBcZnMyMiBOb3 ArDVh0eQlgD0DnHUSt IvS7rHVaMEPpOYszCE IyFWQvvnR0yC36RAry gtU8zOWbn4Hzq91ds1 95tA5nfWDfVEE7UWNq NVXcuXMuSRIwJBV7BO XbgZWmB2xdWTTuVT4w cmdyMTgwMFxtYXJndD W7CONdaMIoC5QkRCPi WCuqGLSrtzy0AoGoLg 1tiWCfjMlrENtvp0og p2eayZVlTvw5WBFvQk GqSzgdMHdpf9Ysn1iu PLMnlr1yDSN5wVMtbB pqz9Y4sZNmXHRdcQFv zvMnKFQjKqA7VPcjCW 6swd91WCBmUPM8qd8u bGNccGdicmRyaGVhZF ujC2ChWUBzy739VSWb Q0HgBKVjy4Q0yjKzJc SiRZDgsGG0fnD5LDAs LDo5rHYsblX3klQzuH YpX6bjbK5jWYJeRJ4e zxije3bcETqfCRcjXA CltMK6vvE7JYHuuQCq S5CicJ2gRLQwXBhcEC Bmfjk6BtHgCi3snMKk eTcyMFxzYmtwYWdlXH BnbmNvbnRccGduZGVj XHBsYWluXHBsYWluXG YwXGZzMjRccWxccGxh kI5zJsZpPvYkAhsnVD 7uISZhG1dstQWzISFw QXEsL3dvSpUmaC8nvB ycLKyyetK4QMiiHGrm wqFgyBUmaW1ikoWcXQ MgYmVlbiBhbmFseXpl FYTkcVR9tHCuXHznbv QvXTGfXK0kJ6stRfOS iDS2IS4lHPTlOLN4aG 0pIBMgDPRxxSRitJ3k IGFuZCByZXZpZXcgc3 xefWOjYFL5yBdliEWa m6Twa6DkKZSrJJOxBV UpkgI5q7T6RLzzYBM0 KVx7VLOrgiqsG2ZvyG Fwk79rKRudrgCtMMTx OAKaWJFef0WkPhBzOu 2mfY74lT0zUTV6dN2s GQTdGBXwaRTwaF0qPY QpIUskR3NkQHDspFIo ZHMgZnJvbSBldmVyeS BzbGlkZSBhcmUgcmV2 jGP5AQAsCpsmAJKssL UpiBEtmR3pmS6dvJT5 LlxwbGFpblxmMVxmcz IyXGxhbmcxMDMzXGhp Q2kbNfTfPGRnnGmnOV cgk3UnBEFyDZKrUcFn cGFyfX0= [facility] Performing Lab l8iycYJcUFYwz4rxIR VmbGFuZzEwMzNcZnRu YmpcdWMxIHtccnRmMV xhbnNpXGRlZmxhbmcx JTJkTOW1ubUaEPDkON J7CPU2YlEnu7J4OLWy PwPrNGJsJV1izOfuNM IgWP7vDDYsD8etlC5d ycl0CdShHJRoDuC4BP YrwwM5Xwj2CVFkYXiu d3dgl3CmJEFuDFs8lV xpWvQwTIQuc8mqenYo ZmNoYXJzZXQwIEFyaW StQ118y6hib6fvuqLy wZE8RIYaPUH9CKgjap MssqG9MNgncWXnVgG6 IDtccmVkMFxncmVlbj GyVfo8OOGmV580MSH0 pWlea3yxZBO4PVXiCI BlQdQfLs4hgGCbC996 FSNgXMQVZTHixBe0OW WvvsBebwMxtFLLk429 L793s8pmIUAzcwNspV sLffgls6kvH915YYCs cGVydzEyMjQwXHBhcG CblWB6YCYrZR4wvqfp TEcpOVsjKTNbuzA5TS LmjRGvO6SpASMgVZ7l ttcjNCQ4AGyqILImGP Z2UvLoIPJjm2Jlseo9 HxMqbm9mrh38IWJ1b5 QwzZnvWUN2QIJ1DaTl St7lsDCvRZRkAQ5lLm UayKRrTPAiuu78kVae DSakerXvvC5dMcYqQM XhcPKmVTJtXR6wzIXx RRVpeF1rytxpSQCeFc JkcmhlYWRccGdicmRy Lh3kbMjtCJZ6EMzhD2 mswI4rRyE3JAcsF3ic eO7hLOh4PGjfnUL5FX PnnJ8tRJ0czyiss4wt VVcdIZgjDYTninS3jp K0IZXptREaM8KqgA3x HJLuUQ6wvhxwj2hhVW G0HGgcTXStNSB7UxEb EHXde4Owqep2VqXgz6 SpgGCxXRniL67ke708 EVSfukHlG8wasLWouh xwbGFpblxmMFxmczI0 XHFsXHBsYWluXGYxXG ZzMjJcbGFuZzEwMzNc aGljaFxmMVxkYmNoXG BqSXqiU1abUmSwArGo MiBUZWNobmljYWwgY2 6btS2rIL94PXNpdRGz zCHgfR6kgE8nsFR1ZC NjcmVlbmluZyBwZXJm w3PtIFOwPFThM4anei RdSI3fNNPjtA2eHooy OTUwMCBFdWNsaWQgQX AnAYSDzDA8LXkxufTc G7ddEFMcUGGsZNTYSB bVGvErKkSpVmS2ACb8 OYAuzv37i0opdSUhJL NzdGVjZjIyMDAwXGFu j5ftZIIuqIDeZtCaDw NcZnRuYmpcdWMxXGRl EpTsg4ofv023tOHrl9 tbLZAfDtE3jVKmETZe aRRnB631NJSkHVmta8 zjb3FrAWBdsUCef7W2 PRCActbjwCe0xGuqR7 9sy8P8HztbL2cfUXWb ZFXtJ5ReIJ2bCOOuQl d3KYY4CMH3NXDcCUKd J8HwFC4mIYZerPSjFL y1q7icuWzpUMUyXHH9 b7hdEOzksbCzOX0riv 8eoSw2y8mmulEpUDAb DIOviOOHULTnK2PgbA waVc9zzSw9kZqmArwo BSI0Mwa4GE0xdq66ua q1mZecJDZfrpaiPgP1 AKqxEBYiwqdrFSv4GY wcGSUueZD6TKScpZWz U6QjREwrQP1kmyb7IV T3RJgaPEHyWuX9JGBp aGVhZGVyeTcyMFxmb2 67QQI8SzFqVG4jV8Xj s2A1dU1unEBvHCMboG WgCtUjKCKmmc7ctMTg YRxub0MeCAT6ilU2gK GvcKSgQPYoCL84Xitm q4RlVnqly3CtX05bbC S7TTolt2mvOE5lLdR7 mtNyTBhde4qaiW4rFo B4IMvcEH7iJB2iOTDx dK9ixoddWQOmNrNxad xlWHMzbXmuwoDoVi1c hXgvNLY7RXlzT8laiO 2hRsR3UKgaK5viqM8i QHe9WZnjwTW2ZTXthD 8bYF4jwlwya9kdXLbn OGpxDOAcdqN0geBgTG EjuIOaY1IhsQ7fGETi CT6pjxdxf6jjSOA5ZL nrZYTnTOF4FtHjAPWj w2Ulxcc2NqYxq3KqcW IgKLdxD37sv278MOXy jmAdS0qwjKFlrnmcgK AnkfmpNGzniaL2ULKw XHBsYWluXGYxXGZzMj BcbGFuZzEwMzNcaGlj aFxmMVxkYmNoXGYxXG xdZ5xjEjJjWzCsWCSE fXYgzc6nkGumWAsnrQ QiuLLchEW9oQ8tJEYd cmIrad9lGCChnJJFdB E7WVwjxcZlI8wzknvv UJA4QKRcMEA6M7pbXL BBdmUsIENsZXZlbGFu SIVCKFK2QNL7IBWtHD SIBPFeZKH3LKB4RGBf OTRccGFyXHBhclxwYX JkXHBsYWluXGYwXGZz FqAvyNixrT4iWuFnMh TrBJpnOG4bMIAeA8io uYKfGTDcMKTpV3sdAj GfuQ6arJnhXBfyZiNx ZnMyMFxsdHJjaCBMYW BixqW7p7W7XToleYFf blxmMVxmczIwXGxhbm dmPEHpQCemY6fvIlNj DLDglZuuUGkta6QsAT YxXGZzMjAgRGlyZWN0 v3F4IVbxrTYegkGOEv AFRB2jkHAhxrrnYP0Y LlxwbGFpblxmMVxmcz IyXGxhbmcxMDMzXGhp Z4odFuGnTWWzsEeqIU zrb0EhHZTsNTVdDaRq cGFyfX0= [facility] Specimen Adequacy Satisfactory for interpretation. [facility] BACTERIAL VAGINOSIS NAATon 1 04-06-2023 Interpretation and review of laboratory results Abnormal [facility] Lactobacillus crispatus+gasseri+jense shakira + Gardnerella vaginalis + Atopobium vaginae rRNA AD+probe Ql (Vag fld) Positive Abnormal Negative for bacterial vaginosis [facility] MYRA/TRICHOMONAS NAATon 1 04-06-2023 C. glabrata RNA AD+probe Ql (Vag fld) Negative Negative for Myra glabrata [facility] Myra sp DNA AD+probe Ql (Vag fld) Negative Negative for Myra species [facility] Interpretation and review of laboratory results Normal [facility] T. vaginalis DNA AD+probe Ql (Unsp spec) Negative Negative for Trichomonas vaginalis by amplification [facility] ECG 12-LEADon 11-20-2022 ECG 12-LEAD IMPRESSION: [...] [facility] ED Nursing Note Sophia WADSWORTH at bedside to medicate Barbara Beck 11/19/[address] [facility] ED Nursing Note Patient given bagged lunch from EMAIL ENGINEER Frances Parks, EMT 11/19/[address] [facility] ED Nursing Note Patient has 3 bags of belongings. MILES Elena 11/19/[address] [facility] ED Nursing Note Protective services at patient bedside offering patient cup of water. MILES Elena 11/19/[address] [facility] ED Nursing Note Physician is at patient bedside MILES Elena 11/19/[address] [facility] ED Nursing Note Patient has 3 bag of belongings. Patient was wanded and changed into two gowns. Jovimalcolmmary Jai Parks, EMT 11/19/22 2204 Normal [facility] Laboratory - Drug toxicology Ordered By: Vikash Borden on 11-20-2022 Amphetamines Screen method >1000 ng/mL Ql (U) Negative [facility] Barbiturates Screen method >200 ng/mL Ql (U) Negative [facility] Benzodiazepines Ql (U) Positive [facility] Methadone Screen Ql (U) Negative S [facility] Opiates Screen Ql (U) Negative [facility] oxyCODONE Ql (U) Negative [facility] alth Phencyclidine Ql (U) Negative [facility] No Panel InformationOrdered By: Vikash Borden on 11-20-2022 COCAINE METAB. SCREEN Negative [facility] The expected value for all of [...] is needed, request confirmation under separate order. [facility] .Auto Diffon 11-19-2022 Basophil, Absolute 0.1 10 3/mcL Normal 0.0-0.2 [facility] ([place]) Comment on above: Performed By: #### C AZUL MALDONADO MDW, ADIFF, GFR, BMP, ALC #### [address] [address] Basophils/100 WBC (Bld) 0.6 % Normal 0.0-2.5 [facility] ([place]) Comment on above: Performed By: #### C AZUL MALDONADO MDW, ADIFF, GFR, BMP, ALC #### [address] [address] Eosinophil, Absolute 0.1 10 3/mcL Normal 0.0-0.4 [facility] ([place]) Comment on above: Performed By: #### C BC, ANEU, MDW, ADIFF, GFR, BMP, ALC #### [address] [address] Eosinophils/100 WBC (Bld) 0.6 % Normal 0.0-7.0 [facility] ([place]) Comment on above: Performed By: #### C BC, ANEU, MDW, ADIFF, GFR, BMP, ALC #### [address] [address] Lymphocyte, Absolute 3.1 10 3/mcL Normal 0.8-3.9 [facility] ([place]) Comment on above: Performed By: #### C BC, ANEU, MDW, ADIFF, GFR, BMP, ALC #### [address] [address] Lymphocytes/100 WBC (Bld) 32.1 % Normal 10.0-50.0 [facility] ([place]) Comment on above: Performed By: #### C BC, ANEU, MDW, ADIFF, GFR, BMP, ALC #### [address] [address] Monocyte, Absolute 0.8 10 3/mcL Normal 0.2-1.0 [facility] ([place]) Comment on above: Performed By: #### C BC, ANEU, MDW, ADIFF, GFR, BMP, ALC #### [address] [address] Monocytes/100 WBC (Bld) 8.5 % Normal 1.7-13.0 [facility] ([place]) Comment on above: Performed By: #### C BC, ANEU, MDW, ADIFF, GFR, BMP, ALC #### [address] [address] Neutrophils/100 WBC (Bld) 58.2 % Normal 37.0-80.0 [facility] ([place]) Comment on above: Performed By: #### C BC, ANEU, MDW, ADIFF, GFR, BMP, ALC #### [address] [address] .GFRon 08-20-2023 GFR 79 ml/min/1.73sqm Normal [facility] ([place]) Comment on above: Result Comment: GFR Population [...] By: #### G FR, LIPID, CMP #### [address] [address] GFR Non- 65 ml/min/1.73sqm Normal [facility] ([place]) Comment on above: Result Comment: GFR Population [...] By: #### G FR, LIPID, CMP #### [address] [address] .MDWon 11-19-2022 Monocyte Distribution Width 16.13 Normal 0.00-20.00 [facility] ([place]) Comment on above: Result Comment: For ED adult patients suspected of sepsis, MDW<=20.0 does not rule out sepsis or risk of sepsis Performed By: #### C AZUL MALDONADO MDW, ADIFF, GFR, BMP, ALC #### [address] [address] .NEUABSon 11-19-2022 Neutrophil, Absolute 5.6 10 3/mcL Normal 2.9-6.2 [facility] ([place]) Comment on above: Performed By: #### C BC, ANEU, MDW, ADIFF, GFR, BMP, ALC #### [place] [id number] Loni 11-19-2022 Ethanol Level <3 Normal 0-3 [facility] ([place]) Comment on above: Performed By: #### G FR, LIPID, CMP #### [place] [id number] BMPon 11-19-2022 BUN/Creatinine Ratio 14 ratio Normal 7-27 [facility] ([place]) Comment on above: Performed By: #### G FR, LIPID, CMP #### [address] [address] Calcium [Mass/Vol] 9.2 mg/dL Normal 8.4-10.2 [facility] ([place]) Comment on above: Performed By: #### G FR, LIPID, CMP #### [address] [address] Chloride [Moles/Vol] 101 mmol/L Normal 98-107 [facility] ([place]) Comment on above: Performed By: #### G FR, LIPID, CMP #### [address] [address] CO2 [Moles/Vol] 28 mmol/L Normal 22-29 [facility] ([place]) Comment on above: Performed By: #### G FR, LIPID, CMP #### [address] [address] Creatinine [Mass/Vol] 1.01 mg/dL Normal 0.55-1.02 [facility] ([place]) Comment on above: Performed By: #### G FR, LIPID, CMP #### [address] [address] Electrolyte Balance 9.0 mEq/L Normal 4.0-15.0 [facility] ([place]) Comment on above: Performed By: #### G FR, LIPID, CMP #### [address] [address] Glucose [Mass/Vol] 102 mg/dL Normal 70-105 [facility] ([place]) Comment on above: Performed By: #### G FR, LIPID, CMP #### [address] [address] Potassium [Moles/Vol] 3.4 mmol/L Low 3.5-5.1 [facility] ([place]) Comment on above: Performed By: #### G FR, LIPID, CMP #### [address] [address] Sodium [Moles/Vol] 138 mmol/L Normal 136-145 [facility] ([place]) Comment on above: Performed By: #### Larry FR, LIPID, CMP #### [address] [address] Urea nitrogen [Mass/Vol] 14 mg/dL Normal 7-18 [facility] ([place]) Comment on above: Performed By: #### G FR, LIPID, CMP #### [address] [address] CBCon 11-19-2022 Erythrocyte distribution width (RBC) [Ratio] 12.6 % Normal 11.5-14.5 [facility] ([place]) Comment on above: Performed By: #### C AZUL MALDONADO MDW, ADISMAEL, GFR, BMP, ALC #### [address] [address] Hematocrit (Bld) [Volume fraction] 39.0 % Normal 37.0-47.0 [facility] ([place]) Comment on above: Performed By: #### C AZUL MALDONADO, LAMBERT, ADISMAEL, GFR, BMP, ALC #### [address] [address] Hgb 13.8 G/dL Normal 12.0-16.0 [facility] ([place]) Comment on above: Performed By: #### C ERICA, AZUL, W, ADIFF, GFR, BMP, ALC #### [address] [address] MCH (RBC) [Entitic mass] 31.2 pg Normal 27.0-31.2 [facility] ([place]) Comment on above: Performed By: #### C ERICA, AZUL, W, ADIFF, GFR, BMP, ALC #### [address] [address] MCHC 35.4 G/dL Normal 33.0-37.0 [facility] ([place]) Comment on above: Performed By: #### C ERICA, AZUL, W, ADIFF, GFR, BMP, ALC #### [address] [address] MCV (RBC) [Entitic vol] 88.2 fL Normal 80.0-94.0 [facility] ([place]) Comment on above: Performed By: #### C ERICA, AZUL, W, ADIFF, GFR, BMP, ALC #### [address] [address] Platelet 274 10 3/mcL Normal 130-400 [facility] ([place]) Comment on above: Performed By: #### C ERICA, AZUL, W, ADIFF, GFR, BMP, ALC #### [address] [address] Platelet mean volume (Bld) [Entitic vol] 8.2 fL Normal 7.4-10.4 [facility] ([place]) Comment on above: Performed By: #### C ERICA, AZUL, W, ADIFF, GFR, BMP, ALC #### [place] [id number] RBC 4.42 10 6/mcL Normal 4.20-5.40 [facility] ([place]) Comment on above: Performed By: #### C ERICA, AZUL, W, ADIFF, GFR, BMP, ALC #### [place] [phone] WBC 9.7 10 3/mcL Normal 4.6-10.8 [facility] ([place]) Comment on above: Performed By: #### C BC, AZUL, MDW, ADISMAEL, GFR, BMP, ALC #### [facility] [address] [place], [place] [address] CBC W Auto Differential pane l (Bld)Ordered [...] [#/Vol] 5.8 10*3/uL 1.8 - 7.0 10*3/uL [facility] Neutrophils/100 WBC (Bld) 56.9 % 40.0 - 80.0 % [facility] Nucleated RBC/100 WBC (Bld) [Ratio] 0.1 % [facility] Platelet mean volume (Bld) [Entitic vol] 8.7 fL 7.4 - 12.4 fL [facility] Platelets (Bld) [#/Vol] 283 10*3/uL 140 - 440 10*3/uL [facility] RBC (Bld) [#/Vol] 4.55 10*6/uL 3.8 - 5.20 10*6/uL [facility] WBC (Bld) [#/Vol] 10.1 10*3/uL 3.6 - 10.7 10*3/uL [facility] [id number] 11-19-2022 SARS-CoV-2 (COVID-19) RNA AD+probe Ql (Unsp spec) Negative Normal Negative [facility] ([place]) Comment on above: Performed By: #### C OVD19 #### [address] [address] SARS-CoV-2 (COVID-19) RNA AD+probe Ql (Unsp spec) Normal [facility] ([place]) Comment on above: Result Comment: Nega tive [...] Performed By: #### C OVD19 #### [place] [address] Comprehensive metabolic 1998 panelon 11-19-2022 Albumin [Mass/Vol] 5.0 g/dL 3.5 - 5.0 g/dL [facility] ALP [Catalytic activity/Vol] 66 U/L 38 - 126 U/L [facility] ALT [Catalytic activity/Vol] 21 U/L 0 - 34 U/L [facility] Anion gap [Moles/Vol] 13 mmol/L 3 - 13 mmol/L [facility] AST [Catalytic activity/Vol] 28 U/L 15 - 46 U/L [facility] Bilirubin [Mass/Vol] 0.7 mg/dL 0.2 - 1 .3 mg/dL [facility] Calcium [Mass/Vol] 8.9 mg/dL 8.4 - 10. 4 mg/dL [facility] Chloride [Moles/Vol] 104 mmol/L 98 - 10 7 mmol/L [facility] CO2 [Moles/Vol] 20 mmol/L Low 22 - 30 mmol/L [facility] Creatinine [Mass/Vol] 0.80 mg/dL 0.52 - 1.04 mg/dL [facility] GFR/1.73 sq M.predicted MDRD (S/P/Bld) [Vol rate/Area] - PINF [facility] Comment on above: Calculation based on the Chronic Kidney Disease Epidemiology Collaboration (CKD-EPI) equation refit without adjustment for race Glucose [Mass/Vol] 109 mg/dL High 70 - 100 mg/dL [facility] Interpretation and review of laboratory results Abnormal [facility] Potassium [Moles/Vol] 3.7 mmol/L 3.5 - 5.1 mmol/L [facility] Protein [Mass/Vol] 7.9 g/dL 6.3 - 8.2 g/dL [facility] Sodium [Moles/Vol] 136 mmol/L 135 - 145 mmol/L [facility] Urea nitrogen [Mass/Vol] 13 mg/dL 7 - 17 mg/dL [facility] ED Nursing Noteon 11-19-2022 ED Nursing Note EKG at patient bedside Frances Parks, EMT 11/19/22 [id number] Normal [facility] ED Nursing Note Registration at patient bedside Frances Parks, EMT 11/19/222155 [facility] ED Nursing Note Registration at patient bedside Frances Garcia Parks, EMT 11/19/222135 [facility] ED Nursing Note Dr. Darling at patient bedside Frances Garcia Kasey, EMT 11/19/222131 [facility] [...] Patient states that she was seen at [place] last night for similar issues and was [...] Blood, Urine (more content not included)... Normal [facility] ED Provider Note Emergency Department Encounter [...] [employer] Lukas Darling MD 11/19/222138 Normal [facility] Ethanol (Bld) [Mass/Vol]on 0 11-19-2022 Ethanol [Mass/Vol] g/dL 0.000 - 0 .010 g/dL [facility] Interpretation and review of laboratory results Normal [facility] Laboratory - Chemistry and C hemistry - challengeOrdered By: Zoë Post on 11-19-2022 Beta HCG ( test) Ql Negative Negative [facility] Comment on above: Please note: Very di lute urine specimens, as indicated by a low specific gravity, may not contain enrollment representative levels of hCG. If is still suspected, a first morning urine specimen should be collected 48 hours later and tested. Beta HCG ( test) Ql (U) is the most common reason for HCG in urine, although choriocarcinoma, hydatidiform mole, and certain nontrophoblastic malignancies also result in detectable urinary HCG levels. Sensitivity = 20mIU/mL. [facility] Laboratory - Microbiology an d Antimicrobial susceptibilityOrdered By: Bryanna Velasquez on 11-19-2022 SARS-CoV-2 (COVID-19) Ag IA.rapid Ql (Resp) Negative Negative [facility] Comment on above: A negative result do es not rule out the possibility of SARS-CoV-2 infection. NAAT-based methods should be considered for symptomatic patients presenting greater than seven days after onset of symptoms. Method: Lateral flow immunoassay. Fact sheets for healthcare providers and patients can be found at the following sites: https://www.fda.gov/media/283157/download https://www.[employer].gov/media/598402/download No Panel InformationOrdered By: Zoë Post on 11-19-2022 [facility] No Panel Informationon 11-19 P [place] 9 degrees [facility] LA Interval 135 ms [facility] QRS [place] 64 degrees [facility] QRSD [facility]val 352 ms [facility] QTC Interval 446 ms [facility] T Wave [place] -21 degrees [facility] Sinus rhythm Electronically Signed On 11-19-2022 23:58:23 EDT by Lukas Darling CV Lukas Mccormack MD - 11/19/2022 IMPRESSION: Sinus rhythm Electronically Signed On 11-19-2022 23:58:23 EDT by Lukas Darling [place] PREGUon 11-19-2022 HCG ( test) Ql (U) Negative Normal [facility] ([place] Comment on above: Performed By: #### T OXSC, PREGU #### [address] [address] test (u) int Not detected Invalid Interpretation Code [facility] ([place]) Comment on above: Performed By: #### T OXSC, PREGU #### Franc[place]a [address] [address] SARS-CoV-2 (COVID-19) Ag IA. rapid Ql (Resp)Ordered By: Bryanna Velasquez on 11-19-2022 Interpretation and review of laboratory results [facility] TOXSCon 11-19-2022 U Ampheta (AO) Negative [facility] ([place]) Comment on above: Performed By: #### T OXSC, PREGU #### [address] [address] U Sophia (AO) Negative [facility] ([place]) Comment on above: Performed By: #### T OXSC, PREGU #### Francisca [address] [address] U Raymond (AO) Positive [facility] ([place]) Comment on above: Performed By: #### T OXSC, PREGU #### Francisca [address] [address] U Cannab (AO) Negative [facility] ([place]) Comment on above: Performed By: #### T OXSC, PREGU #### [address] [address] U Cocaine (AO) Negative [facility] ([place]) Comment on above: Performed By: #### T OXSC, PREGU #### [address] [address] U Methadone (AO) Negative [facility] ([place]) Comment on above: Performed By: #### T OXSC, PREGU #### [address] [address] U PCP (AO) Negative [facility] ([place]) Comment on above: Performed By: #### T OXSC, PREGU #### [address] [address] U TCA (AO) Positive [facility] ([place]) Comment on above: Performed By: #### T OXSC, PREGU #### [address] [address] Urine Opiates (AO) Negative [facility] ([place]) Comment on above: Performed By: #### T OXSC, PREGU #### [place] [address] Urinalysis complete panel (U )Ordered By: Blanche Moody on 11-19-2022 Bilirubin Ql (U) Negative Negative mg/dL [facility] Clarity (U) Clear Clear [facility] Color (U) Light Yellow Lt. Yellow [facility] Glucose Ql (U) Normal Normal (<70) mg/dL [facility] Hemoglobin Ql (U) Negative Negative mg/dL [facility] Interpretation and review of laboratory results Abnormal [facility] Ketones (U) [Mass/Vol] 100 mg/dL Abnormal Negative [facility] Leukocyte esterase Test strip Ql (U) Negative Negative Skip/uL [facility] Nitrite Ql (U) Negative Negative [facility] th pH (U) 6.5 [pH] 5.0 - 8.0 pH [facility] Protein (U) [Mass/Vol] Negative Negative mg/d L [facility] Specific gravity (U) [Rel density] 1.020 1.005 - 1.030 [facility] Urobilinogen (U) [Mass/Vol] Normal Normal (0-1) mg/dL [facility] Vital signson 11-19-2022 Heart rate 96 /min bpm [facility] LABORATORYOrdered By: Javier Collins on 11-18-2022 [...] SS .GFRon 06-30-2022 GFR 81 ml/min/1.73sqm Normal [facility] ([place]) Comment on above: Result Comment: GFR Population [...] #### G FR, LIPID, CMP #### Francisca [address] [address] GFR Non- 67 ml/min/1.73sqm Normal [facility] ([place]) Comment on above: Result Comment: GFR Population [...] By: #### G FR, LIPID, CMP #### [address] [address] CMPon 06-30-2022 Albumin Level 4.1 G/dL Normal 3.5-5.0 [facility] ([place]) Comment on above: Performed By: #### G FR, LIPID, CMP #### [address] [address] Albumin/Globulin [Mass ratio] 1.4 {ratio} Normal 1.1-2.5 [facility] ([place]) Comment on above: Performed By: #### Larry FR, LIPID, CMP #### [address] [address] ALP [Catalytic activity/Vol] 73 U/L Normal 40-135 [facility] ([place]) Comment on above: Performed By: #### Larry FR, LIPID, CMP #### [address] [address] ALT [Catalytic activity/Vol] 25 U/L Normal 14-59 [facility] ([place]) Comment on above: Performed By: #### G FR, LIPID, CMP #### [address] [address] AST [Catalytic activity/Vol] 18 U/L Normal 10-40 [facility] ([place]) Comment on above: Performed By: #### G FR, LIPID, CMP #### [address] [address] Bili Total 0.6 mg/dL Normal 0.2-1.0 [facility] ([place]) Comment on above: Result Comment: Use of this assay is not recommended for patients undergoing treatment with eltrombopag due to the potential for falsely elevated results. Performed By: #### G FR, LIPID, CMP #### [address] [address] BUN/Creatinine Ratio 12 ratio Normal 7-27 [facility] ([place]) Comment on above: Performed By: #### G FR, LIPID, CMP #### [address] [address] Calcium [Mass/Vol] 8.9 mg/dL Normal 8.4-10.2 [facility] ([place]) Comment on above: Performed By: #### G FR, LIPID, CMP #### [address] [address] Chloride [Moles/Vol] 102 mmol/L Normal 98-107 [facility] ([place]) Comment on above: Performed By: #### G FR, LIPID, CMP #### [address] [address] CO2 [Moles/Vol] 31 mmol/L High 22-29 [facility] ([place]) Comment on above: Performed By: #### G FR, LIPID, CMP #### [address] [address] Creatinine [Mass/Vol] 0.98 mg/dL Normal 0.55-1.02 [facility] ([place]) Comment on above: Performed By: #### G FR, LIPID, CMP #### [address] [address] Electrolyte Balance 7.0 mEq/L Normal 4.0-15.0 [facility] ([place]) Comment on above: Performed By: #### G FR, LIPID, CMP #### [address] [address] Globulin 2.9 G/dL Normal [facility] ([place]) Comment on above: Performed By: #### G FR, LIPID, CMP #### [address] [address] Glucose [Mass/Vol] 88 mg/dL Normal 70-105 [facility] ([place]) Comment on above: Performed By: #### G FR, LIPID, CMP #### [address] [address] Potassium [Moles/Vol] 4.6 mmol/L Normal 3.5-5.1 [facility] ([place]) Comment on above: Performed By: #### G FR, LIPID, CMP #### [address] [address] Sodium [Moles/Vol] 140 mmol/L Normal 136-145 [facility] ([place]) Comment on above: Performed By: #### G FR, LIPID, CMP #### [place] [address] [place], [place] [address] Total Protein 7.0 G/dL Normal 6.4-8.2 [facility] ([place]) Comment on above: Performed By: #### G FR, LIPID, CMP #### [place] [address] [place], [place] [address] Urea nitrogen [Mass/Vol] 12 mg/dL Normal 7-18 [facility] ([place]) Comment on above: Performed By: #### G FR, LIPID, CMP #### [place] [address] [place], [place] [address] LABORATORYOrdered By: SYSTEM SYSTEM on 06-30-2022 Albumin [...] 06-30-2022 Cholesterol [Mass/Vol] 237 mg/dL High 0-200 [facility] ([place]) Comment on above: Result Comment: Chol esterol Reference Interval: Less than 200 Desirable 200-239 Borderline high risk 240 and above High risk Performed By: #### G FR, LIPID, CMP #### [address] [address] Cholesterol in HDL [Mass/Vol] 82 mg/dL High 40-60 [facility] ([place]) Comment on above: Performed By: #### G FR, LIPID, CMP #### [place] [address] [place], [place] [address] Cholesterol in LDL [Mass/Vol] 150 mg/dL High 0-130 [facility] ([place]) Comment on above: Performed By: #### G FR, LIPID, CMP #### [address] [address] Triglyceride [Mass/Vol] 26 mg/dL Normal 0-150 [facility] ([place]) Comment on above: Result Comment: Trig lyceride Reference Interval: Less than 150 Normal 150-199 Borderline high risk 200-499 High risk 500 or higher Very high risk Performed By: #### G FR, LIPID, CMP #### [address] [address] .Auto Diffon 06-09-2022 Basophil, Absolute 0.1 10 3/mcL Normal 0.0-0.2 [facility] ([place]) Comment on above: Performed By: #### G FR, LIPID, CMP #### [address] [address] Basophils/100 WBC (Bld) 0.8 % Normal 0.0-2.5 [facility] ([place]) Comment on above: Performed By: #### G FR, LIPID, CMP #### [address] [address] Eosinophil, Absolute 0.1 10 3/mcL Normal 0.0-0.4 [facility] ([place]) Comment on above: Performed By: #### G FR, LIPID, CMP #### [address] [address] Eosinophils/100 WBC (Bld) 1.5 % Normal 0.0-7.0 [facility] ([place]) Comment on above: Performed By: #### G FR, LIPID, CMP #### [address] [address] Lymphocyte, Absolute 2.3 10 3/mcL Normal 0.8-3.9 [facility] ([place]) Comment on above: Performed By: #### G FR, LIPID, CMP #### [address] [address] Lymphocytes/100 WBC (Bld) 31.4 % Normal 10.0-50.0 [facility] ([place]) Comment on above: Performed By: #### G FR, LIPID, CMP #### [address] [address] Monocyte, Absolute 0.7 10 3/mcL Normal 0.2-1.0 [facility] ([place]) Comment on above: Performed By: #### G FR, LIPID, CMP #### [address] [address] Monocytes/100 WBC (Bld) 9.7 % Normal 1.7-13.0 [facility] ([place]) Comment on above: Performed By: #### G FR, LIPID, CMP #### [address] [address] Neutrophils/100 WBC (Bld) 56.6 % Normal 37.0-80.0 [facility] ([place]) Comment on above: Performed By: #### G FR, LIPID, CMP #### [address] [address] .NEUABSon 06-09-2022 Neutrophil, Absolute 4.2 10 3/mcL Normal 2.9-6.2 [facility] ([place]) Comment on above: Performed By: #### G FR, LIPID, CMP #### [address] [address] CBCon 06-09-2022 Erythrocyte distribution width (RBC) [Ratio] 13.5 % Normal 11.5-14.5 [facility] ([place]) Comment on above: Order Comment: PLEAS E do STAT Performed By: #### G FR, LIPID, CMP #### [address] [address] Hematocrit (Bld) [Volume fraction] 42.8 % Normal 37.0-47.0 [facility] ([place]) Comment on above: Order Comment: PLEAS E do STAT Performed By: #### G FR, LIPID, CMP #### [address] [address] Hgb 14.7 G/dL Normal 12.0-16.0 [facility] ([place]) Comment on above: Order Comment: PLEAS E do STAT Performed By: #### G FR, LIPID, CMP #### [address] [address] MCH (RBC) [Entitic mass] 30.5 pg Normal 27.0-31.2 [facility] ([place]) Comment on above: Order Comment: PLEAS E do STAT Performed By: #### G FR, LIPID, CMP #### [address] [address] MCHC 34.4 G/dL Normal 33.0-37.0 [facility] ([place]) Comment on above: Order Comment: PLEAS E do STAT Performed By: #### G FR, LIPID, CMP #### [address] [address] MCV (RBC) [Entitic vol] 88.6 fL Normal 80.0-94.0 [facility] ([place]) Comment on above: Order Comment: PLEAS E do STAT Performed By: #### G FR, LIPID, CMP #### [address] [address] Platelet 299 10 3/mcL Normal 130-400 [facility] ([place]) Comment on above: Order Comment: PLEAS E do STAT Performed By: #### G FR, LIPID, CMP #### [address] [address] Platelet mean volume (Bld) [Entitic vol] 8.1 fL Normal 7.4-10.4 [facility] ([place]) Comment on above: Order Comment: PLEAS E do STAT Performed By: #### G FR, LIPID, CMP #### [address] [address] RBC 4.82 10 6/mcL Normal 4.20-5.40 [facility] ([place]) Comment on above: Order Comment: PLEAS E do STAT Performed By: #### G FR, LIPID, CMP #### [address] [address] WBC 7.4 10 3/mcL Normal 4.6-10.8 [facility] ([place]) Comment on above: Order Comment: PLEAS E do STAT Performed By: #### G FR, LIPID, CMP #### [place] [address] LABORATORYOrdered By: Javier Landers on 06-09-2022 Basophil, [...] AO Workflow SS PELVIC US WHIon 05-09-2022 [facility] Lab Report: Comprehensive Co tabolic Profilon 10-27-2016 Albumin mass conc 4.0 g/dL 3.4-5.0 [facility] Work Phone: Albumin/Globulin mass ratio 1.2 {ratio} 0.9-2.4 [facility] Work Phone: ALP enzyme act/vol (Bld) [...] Phone: Calcium mass conc 8.8 mg/dL 8.5-10.1 [facility] Work Phone: Chloride molar conc 105 mmol/L 98-107 [facility] Work Phone: CO2 ppres (BldV) 25.0 mmol/L 21.0-32.0 [facility] Work Phone: Creatinine mass conc 0.82 mg/dL 0.55-1.[address] [facility] Work Phone: EST GFR - AA 110 mL/min >60 [facility] Work Phone: GFR/1.73 sq M predicted among non-blacks MDRD vol rate/area (S/P/Bld) 91 mL/min/{1.73_m2} >60 [facility] Work Phone: Globulin mass conc (S) 3.2 g/dL 2.3-3.5 [facility] Work Phone: Glucose mass conc 82 mg/dL 70-110 [facility] Work Phone: Potassium molar conc 4.0 mmol/L 3.5-5.[address] [facility] Work Phone: Protein mass conc 7.2 g/dL 6.4-8.2 [facility] Work Phone: Sodium molar conc 140 mmol/L 136-145 [facility] Work Phone: Urea nitrogen mass conc 12 mg/dL 7-18 [facility] Work Phone: Urea nitrogen/Creatinine mass ratio 14.6 RATIO 10-20 [facility] Work Phone: Lab Report: Lipid Profileon [...] (TSH)on 10-27-2016 Thyrotropin Qn 1.25 u[iU]/mL 0.358-3.74 [facility] Work Phone: Office Visiton 09-26-2016 Adolescent depression screening assessment Adolescent depression screening assessment Invalid Interpretation Code [facility] Work Phone: Adult depression screening assessment Adult depression screening assessment Invalid Interpretation Code [facility] Work Phone: Adult depression screening assessment Adolescent depression screening assessment [facility] Work Phone: Documentation of current medications (procedure) Done Invalid Interpretation Code [facility] Work Phone: PHQ-9 quick depression assessment panel [Reported.PHQ] Adult depression screening assessment [facility] Work Phone: Protein mass conc Done [facility] Work Phone: Tobacco smoking status NHIS Never [facility] Work Phone: Tobacco smoking status NHIS Never smoker [facility] Work Phone: Tobacco use [facility] Never smoker Invalid Interpretation Code [facility] Work Phone: Vital Signs Date Time Vital Sign Value Performing Clinician Facility 01-18-2025 18:30-0400 Body temperature 98.8 [degF] [facility] 01-18-2025 18:30-0400 Diastolic blood pressure 74 mm[Hg] [facility] 01-18-2025 18:30-0400 Heart rate 65 /min [facility] 01-18-2025 18:30-0400 Respiratory rate 16 /min [facility] 01-18-2025 18:30-0400 SaO2% (BldA) [Mass fraction] 97 % [facility] 01-18-2025 18:30-0400 Systolic blood pressure 113 mm[Hg] [facility] 01-18-2025 18:25-0400 Body height 167.64 cm [facility] 01-18-2025 18:25-0400 Body mass index (BMI) [Ratio] 32 kg/m2 [facility] 01-18-2025 18:25-0400 Body weight 89.9 kg [facility] 12-10-2024 14:38-0400 Body mass index (BMI) [Ratio] 30.67 kg/m2 Camelia Herrera APRN.CNM Work Phone: [facility] 12-10-2024 14:38-0400 Body weight 86.18 kg Camelia Herrera CALL OR CONTACT CENTRE OPERATOR.CNM Work Phone: [facility] 12-10-2024 14:38-0400 Diastolic blood pressure 60 mm[Hg] Camelia Herrera CALL OR CONTACT CENTRE OPERATOR.CNM Work Phone: [facility] 12-10-2024 14:38-0400 Systolic blood pressure 120 mm[Hg] Camelia Herrera CALL OR CONTACT CENTRE OPERATOR.CNM Work Phone: [facility] 11-26-2024 14:40-0400 Body mass index (BMI) [Ratio] 30.21 kg/m2 Hoda Plotts CALL OR CONTACT CENTRE OPERATOR.CNM Work Phone: [facility] 11-26-2024 14:40-0400 Body weight 84.91 kg Hoda Hager CALL OR CONTACT CENTRE OPERATOR.CNM Work Phone: [facility] 11-26-2024 14:40-0400 Diastolic blood pressure 60 mm[Hg] Hoda Plotts CALL OR CONTACT CENTRE OPERATOR.CNM Work Phone: [facility] 11-26-2024 14:40-0400 Systolic blood pressure 106 mm[Hg] Hoda Plotts CALL OR CONTACT CENTRE OPERATOR.CNM Work Phone: [facility] 11-12-2024 14:32-0400 Body mass index (BMI) [Ratio] 29.7 kg/m2 Camelia Herrera CALL OR CONTACT CENTRE OPERATOR.CNM Work Phone: [facility] 11-12-2024 14:32-0400 Body weight 83.46 kg Camelia Herrera CALL OR CONTACT CENTRE OPERATOR.CNM Work Phone: [facility] 11-12-2024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 Work Phone: Start: 05-07-2024 Urnls dip stick/tabl et rgnt auto w/o microscopy Brennan Head APRN.[employer] Work Phone: Start: 02-04-2024 BACTERIAL VAGINOSIS NAAT [...] 10-27-2016 *CMP Complete Metabolic Panel Angelique boyer [employer]VELING [employer]ENT Work Phone: Start: 09-26-2016 End: 10-27-2016 Lipid 1996 panel - Serum or Plasma Angelique Walden [employer] Work Phone: Start: 09-26-2016 End: 10-27-2016 Thyrotropin [Units/volume] in Serum or Plasma Angelique Walden [employer]ING [employer] Work Phone: Start: 04-02-2013 Arthroscopy temporom andibular joint surgical VERN URBAN MD Comment on above: RIGHT Plan of Treatment Date Care Activity Detail Author Start: 2043 Zoster Vaccines (1 of 2) Zoster Vaccines (1 of 2) [facility] Start: 02-03-2029 Screening for malignant neoplasm of cervix Cervical Cancer Screening [facility] Start: 03-28-2028 DTaP/Tdap/Td Vaccines (7 - Td or Tdap) DTaP/Tdap/Td Vaccines (7 - Td or Tdap) [facility] Start: 03-28-2028 Urine microalbumin profile [facility] Start: 06-16-2025 Screening for malignant neoplasm of cervix Pap Testing [facility] Start: 03-09-2025 End: 03-09-2025 ambulatory 03/09/2025 11:00 AM [facility] [address] [place] [address] Laurie Serra, CALL OR CONTACT CENTRE OPERATOR.[employer] [address] [place] [address] Psychiatry Start: 01-28-2025 End: 01-28-2025 Patient encounter procedure 01/28/2025 2:30 PM EDT Office Visit OB/Gynecology [address] [place] [address] Hoda Hager APRN.CNM [address] [place] [address] [facility] Comment on above: Cent[facility] Start: 01-27-2025 End: 01-27-2025 Patient encounter procedure Departed [facility] Work Phone: Start: 01-21-2025 End: 01-21-2025 Patient encounter procedure 01/21/2025 2:30 PM EDT Office Visit OB/Gynecology [address] [place] [address] Hoda Hager APRN.CNM [address] [place] [address] [facility] Comment on above: Cent[facility] Start: 01-18-2025 Nonstress test [facility] Start: 01-18-2025 Obstetric monitoring [facility] Start: 01-18-2025 Vital signs measurements [facility] Start: 01-18-2025 [facility] Start: 01-18-2025 Patient discharge [facility] Start: 01-07-2025 End: 01-07-2025 Patient encounter procedure 01/07/2025 2:30 PM EDT Office Visit OB/Gynecology [address] [place] [address] Hoda Hager APRN.CNM [address] [place] [address] Centering OB/Gynecology Comment on above: Centering Start: 01-02-2025 End: 01-02-2025 ambulatory 01/02/2025 8:30 AM EDT [facility] Psychiatry [address] [place] [address] Laurie Serra APRN.[employer] [address] [place] [address] Psychiatry Start: 12-28-2024 RSV Vaccine (1 - Risk 1-dose series) RSV Vaccine (1 - Risk 1-dose series) [facility] Start: 12-24-2024 End: 12-24-2024 Patient encounter procedure 12/24/2024 2:30 PM EDT Office Visit OB/Gynecology [address] [place] [address] Hoda Hager APRN.CNM [address] [place] [address] Centering OB/Gynecology Comment on above: Centering Start: 12-10-2024 End: 12-10-2024 Patient encounter procedure 12/10/2024 2:30 PM EDT Office Visit OB/Gynecology [address] [place] [address] Camelia Herrera APRN.CNM [address] [place] [address] Centering OB/Gynecology Comment on above: Centering Start: 12-01-2024 Influenza vaccination [facility] Start: 11-28-2024 End: 11-28-2024 Patient encounter procedure 11/28/2024 8:00 AM EDT Routine Office Visit OB/Gynecology [address] [place] [address] Hoda Hager APRN.CNM [address] [place] [address] Glucose Test/OB OB/Gynecology Comment on above: Glucose Test/OB Start: 11-28-2024 End: 11-28-2024 ambulatory 11/28/2024 7:45 AM EDT Results Only Glenn Cordobawn [facility] [address] [place] [address] Glucose Glenn [place] [facility] Laboratory Comment on above: Glucose Start: 11-26-2024 End: 11-26-2024 Patient encounter procedure 11/26/2024 2:30 PM EDT Office Visit OB/Gynecology [address] [place] [address] Hoda Hager APRN.CNM [address] [place] [address] Centering OB/Gynecology Comment on above: Centering Start: 11-26-2024 End: 11-26-2024 ambulatory 11/26/2024 2:15 PM EDT Results Only Glenn [address] [facility] [address] [place] [address] Glucose Herreid [place] [facility] Laboratory Comment on above: Glucose Start: 11-12-2024 End: 11-12-2024 Patient encounter procedure 11/12/2024 2:30 PM EDT Office Visit OB/Gynecology [address] [place] [address] Camelia Herrera APRN.CNM [address] [place] [address] Centering OB/Gynecology Comment on above: Centering Start: 11-05-2024 End: 11-05-2024 Patient encounter procedure OB/Gynecology Comment on above: OB Start: 11-04-2024 End: 11-04-2024 Patient encounter procedure 11/04/2024 1:00 PM EDT Office Visit Psychiatry [address] [place] [address] Laurie Serra APRN.[employer] [address] [place] [address] follow up Psychiatry Comment on above: follow up Start: 10-28-2024 End: 10-28-2024 Patient encounter procedure 10/28/2024 11:30 AM EDT Office Visit Psychiatry [address] [place] [address] Laurie Serra, MELANIE.[employer] [address] [place] [address] reschedule from 11/04 follow up Psychiatry Comment on above: reschedule from 11/04 follow up Start: 10-22-2024 End: 10-22-2024 Patient encounter procedure 10/22/2024 2:30 PM EDT Office Visit OB/Gynecology [address] [place] [address] Hoda Hager APRN.CNM [address] [place] [address] Centering OB/Gynecology Comment on above: Centering Start: 10-08-2024 End: 10-08-2024 Patient encounter procedure Maternal Medicine Comment on above: Anatomy Anatomy/OB Start: 09-10-2024 End: 09-10-2024 Patient encounter procedure OB/Gynecology Comment on above: OB Start: 08-15-2024 End: 11-14-2024 CARRIER SCREEN, STANDARD [facility] Work Phone: Comment on above: Expected: 08/15/2024, Expires: Start: 08-15-2024 End: 08-15-2024 Patient encounter procedure OB/Gynecology Comment on above: Nuchal Nuchal/OB Start: 07-18-2024 End: 10-17-2024 ANEMIA REFLEX PANEL ANEMIA REFLEX PANEL Lab Routine with uncertain dates in first trimester (HCC) care, first in first trimester (HCC) Expected: 07/18/2024, Expires: 10/17/2024 [facility] Work Phone: Comment on above: Expected: 07/18/2024, Expires: Start: 07-18-2024 End: 10-17-2024 Chromosome 21 trisomy [Presence] in Blood or Tissue by Cytogenetics [id number] PLUS Lab Routine 8 weeks gestation of (HCC) Expected: 07/18/2024, Expires: 10/17/2024 [facility] Comment on above: Expected: 07/18/2024, Expires: Start: 07-18-2024 End: 10-17-2024 Hemoglobin A1c in Blood HEMOGLOBIN A1C Lab Routine with uncertain dates in first trimester (HCC) care, first in first trimester (HCC) Expected: 07/18/2024, Expires: 10/17/2024 [facility] Comment on above: Expected: 07/18/2024, Expires: Start: 07-18-2024 End: 10-17-2024 Hepatitis B virus surface Ag [Presence] in Serum HEPATITIS B SURFACE ANTIGEN Lab Routine with uncertain dates in first trimester (HCC) care, first in first trimester (HCC) Expected: 07/18/2024, Expires: 10/17/2024 [facility] Comment on above: Expected: 07/18/2024, Expires: Start: 07-18-2024 End: 10-17-2024 Hepatitis C virus Ab [Presence] in Serum HEPATITIS C ANTIBODY IA WITH CONFIRMATION Lab Routine with uncertain dates in first trimester (HCC) care, first in first trimester (HCC) Expected: 07/18/2024, Expires: 10/17/2024 [facility] Comment on above: Expected: 07/18/2024, Expires: Start: 07-18-2024 End: 10-17-2024 HIV 1+2 Ab [Presence] in Serum or Plasma by Immunoassay HIV 1/2 COMBO WITH REFLEX TO DIFFERENTIATION Lab Routine with uncertain dates in first trimester ([facility]) care, first in first trimester ([facility]) Expected: 07/18/2024, Expires: 10/17/2024 [facility] Comment on above: Expected: 07/18/2024, Expires: Start: 07-18-2024 End: 07-18-2025 OBSTETRIC ULTRASOUND WHI OBSTETRIC ULTRASOUND WHI Anc Imaging Routine with uncertain dates in first trimester (HCC) care, first in first trimester ([facility]) Expected: 07/18/2024, Expires: 07/18/2025 [facility] Comment on above: Expected: 07/18/2024, Expires: Start: 07-18-2024 End: 10-17-2024 RUBELLA IGG ANTIBODY RUBELLA IGG ANTIBODY Lab Routine with uncertain dates in first trimester ([facility]) care, first in first trimester ([facility]) Expected: 07/18/2024, Expires: 10/17/2024 [facility] Comment on above: Expected: 07/18/2024, Expires: Start: 07-18-2024 End: 10-17-2024 SYPHILIS TREPONEMAL W/REFLEX SYPHILIS TREPONEMAL W/REFLEX Lab Routine with uncertain dates in first trimester (HCC) care, first in first trimester (HCC) Expected: 07/18/2024, Expires: 10/17/2024 [facility] Comment on above: Expected: 07/18/2024, Expires: Start: 07-18-2024 End: 07-18-2025 TYPE + SCREEN TYPE + SCREEN Blood Bank Routine with uncertain dates in first trimester (HCC) care, first in first trimester (HCC) Expected: 07/18/2024, Expires: 10/17/2024 [facility] Comment on above: Expected: 07/18/2024, Expires: Start: 07-18-2024 End: 07-18-2024 Patient encounter procedure 07/18/2024 8:15 AM EDT Initial Office Visit OB/Gynecology [address] [place] [address] Yasmeen Vera, CALL OR CONTACT CENTRE OPERATOR.[employer] [address] [place] [id number] OB/Gynecology Start: 06-30-2024 End: 06-30-2024 [facility] 06/30/2024 11:00 AM EDT [facility] Psychiatry [address] [place] [phone] Laurie Serra, CALL OR CONTACT CENTRE OPERATOR.[employer] [address] [place] [phone] PROVIDER ORDERED FOLLOW UP VISIT Psychiatry Comment on above: PROVIDER ORDERED FOLLOW UP VISIT Start: 06-13-2024 End: 06-13-2024 Patient encounter procedure 06/13/2024 3:20 PM EDT Office Visit OB/Gynecology [address] [place] [id number] Toña Blankenship MD [address] [place] [address] Consult for firtility OB/Gynecology Comment on above: Consult for firtility Start: 05-16-2024 End: 05-16-2024 ambulatory 05/16/2024 8:30 AM EST Procedure OB/Gynecology [address] [place] [address] [facility] [employer] [facility] [address] [place] [address] Desire for [Z31.9]; Irregular menstrual cycle [N92.6] OB/Gynecology Comment on above: Desire for [Z31.9]; Irregular menstrual cycle [N92.6] Start: 05-07-2024 End: 05-07-2025 US Pelvis PELVIC US WHI Anc Imaging Routine Desire for Irregular menstrual cycle Expected: 05/07/2024, Expires: 05/07/2025 [facility] Comment on above: Expected: 05/07/2024, Expires: Start: 03-28-2024 End: 03-28-2024 Patient encounter procedure 03/28/2024 9:30 AM EST Office Visit OB/Gynecology [address] [place] [address] Camelia Herrera APRN.CNM [address] [place] [address] still having symptoms of BV OB/Gynecology Comment on above: still having symptoms of BV Start: 03-06-2024 End: 03-06-2024 Follow-up encounter 03/06/2024 8:30 AM EST [facility] Psychiatry [address] [place] [phone] Laurie Serra, MELANIE.[employer] [address] [place] [phone] follow up Psychiatry Comment on above: follow up Start: 02-06-2024 End: 05-07-2024 Follitropin [Units/volume] in Serum or Plasma FOLLICLE STIMULATING HORMONE Lab Routine Encounter for preconception consultation Expected: 02/06/2024, Expires: 05/07/2024 [facility] Comment on above: Expected: 02/06/2024, Expires: Start: 02-04-2024 End: 02-04-2024 Patient encounter procedure 02/04/2024 2:45 PM EST Office Visit OB/Gynecology [address] [place] [address] Camelia Herrera APRN.CNM [address] [place] [address] Annual exam OB/Gynecology Comment on above: Annual exam Start: 01-30-2024 End: 01-30-2024 Patient encounter procedure 01/30/2024 4:00 PM EDT Office Visit OB/Gynecology [address] [place] [address] Camelia Herrera APRN.CNM [address] [place] [address] Annual exam OB/Gynecology Comment on above: Annual exam Start: 01-25-2024 End: 01-25-2024 Follow-up encounter 01/25/2024 2:00 PM EDT [facility] Psychiatry [address] [place] [phone] Laurie Serra APRN.[employer] [address] [place] [phone] follow up Psychiatry Comment on above: follow up Start: 12-27-2023 End: 12-27-2023 Patient encounter procedure 12/27/2023 2:45 PM EDT Office Visit OB/Gynecology [address] [place] [address] Camelia Herrera APRN.CNM [address] [place] [address] Annual OB/Gynecology Comment on above: Annual Start: 12-18-2023 End: 03-18-2024 Follitropin [Units/volume] in Serum or Plasma [facility] Work Phone: Comment on above: Expected: 12/18/2023, Expires: Start: 12-07-2023 End: 03-07-2024 Estradiol (E2) [Mass/volume] in Serum or Plasma ESTRADIOL-17B BLD Lab Routine Encounter for preconception consultation Expected: 12/07/2023 (Approximate), Expires: 03/07/2024 [facility] Comment on above: Expected: 12/07/2023 (Approximate), Expi res: 03/07/2024 Start: 12-02-2023 Covid-19 Vaccine () Covid-19 Vaccine () [facility] Start: 12-02-2023 Covid-19 Vaccine () Covid-19 Vaccine () [facility] Start: 12-02-2023 Influenza vaccination [facility] Start: 11-07-2023 End: 02-06-2024 Progesterone [Mass/volume] in Serum or Plasma PROGESTERONE Lab Routine Encounter for preconception consultation Expected: 11/07/2023 (Approximate), Expires: 02/06/2024 [facility] Work Phone: Comment on above: Expected: 11/07/2023 (Approximate), Expi res: 02/06/2024 Start: 11-06-2023 End: 02-05-2024 Hemoglobin A1c in Blood HEMOGLOBIN A1C Lab Routine Encounter for preconception consultation Expected: 11/06/2023, Expires: 02/05/2024 [facility] Comment on above: Expected: 11/06/2023, Expires: Start: 11-06-2023 End: 02-05-2024 RUBELLA IGG ANTIBODY RUBELLA IGG ANTIBODY Lab Routine Encounter for preconception consultation Expected: 11/06/2023, Expires: 02/05/2024 [facility] Comment on above: Expected: 11/06/2023, Expires: Start: 11-06-2023 End: 02-05-2024 Thyrotropin [Units/volume] in Serum or Plasma THYROID STIMULATING HORMONE Lab Routine Encounter for preconception consultation Expected: 11/06/2023, Expires: 02/05/2024 [facility] Comment on above: Expected: 11/06/2023, Expires: Start: 11-06-2023 End: 02-05-2024 VARICELLA ZOSTER IGG VARICELLA ZOSTER IGG Lab Routine Encounter for preconception consultation Expected: 11/06/2023, Expires: 02/05/2024 [facility] Comment on above: Expected: 11/06/2023, Expires: Start: 11-06-2023 End: 02-05-2024 WHIIVF ANTI MULLERIAN HORMONE WHIIVF ANTI MULLERIAN HORMONE Lab Routine Encounter for preconception consultation Expected: 11/06/2023, Expires: 02/05/2024 [facility] Comment on above: Expected: 11/06/2023, Expires: Start: 10-30-2023 End: 10-30-2023 Patient encounter procedure 10/30/2023 9:30 AM EDT Office Visit OB/Gynecology [address] [place] [id number] Camelia Herrera APRN.CNM [address] [place] [address] discuss options for Trying to conceive OB/Gynecology Comment on above: discuss options for Trying to conceive Start: 10-18-2023 End: 10-18-2023 Follow-up encounter 10/18/2023 9:00 AM EDT [facility] Psychiatry [address] [place] [phone] Laurie Serra, CALL OR CONTACT CENTRE OPERATOR.[employer] [address] [place] [phone] 3 MONTH FOLLOW UP Psychiatry Comment on above: 3 MONTH FOLLOW UP Start: 08-17-2023 End: 11-16-2023 Choriogonadotropin.beta subunit [Units/volume] in Serum or Plasma HCG QUANTITATIVE Lab Routine Missed menses Expected: 08/17/2023, Expires: 11/16/2023 [facility] Work Phone: Comment on above: Expected: 08/17/2023, Expires: Start: 06-17-2023 PAP TESTING PAP TESTING [facility] Start: 06-17-2023 Screening for malignant neoplasm of cervix Cervical Cancer Screening [facility] Start: 2023 Screening for malignant neoplasm of cervix HPV Testing [facility] Start: 04-02-2023 Depression Assessment Depression Assessment [facility] Start: 12-01-2022 Covid-19 Vaccine () Covid-19 Vaccine () [facility] Start: 12-01-2022 Influenza vaccination [facility] Start: 05-26-2022 End: 05-26-2023 THYROID PEROXIDASE ANTIBODY BLOOD THYROID PEROXIDASE ANTIBODY BLOOD Lab Routine Low T4 Expected: 05/26/2022, Expires: 05/26/2023 [facility] Work Phone: Comment on above: Expected: 05/26/2022, Expires: Start: 05-26-2022 End: 05-26-2023 Thyrotropin [Units/volume] in Serum or Plasma TSH BLD Lab Routine Low T4 Expected: 05/26/2022, Expires: 05/26/2023 [facility] Work Phone: Comment on above: Expected: 05/26/2022, Expires: Start: 05-26-2022 End: 05-26-2023 Thyroxine (T4) [Mass/volume] in Serum or Plasma T4/THYROXINE BLOOD Lab Routine Low T4 Expected: 05/26/2022, Expires: 05/26/2023 [facility] Work Phone: Comment on above: Expected: 05/26/2022, Expires: Start: 05-26-2022 End: 05-26-2023 Thyroxine (T4) free [Mass/volume] in Serum or Plasma T4 FREE/FREE THYROX Lab Routine Low T4 Expected: 05/26/2022, Expires: 05/26/2023 [facility] Work Phone: Comment on above: Expected: 05/26/2022, Expires: Start: 05-26-2022 End: 05-26-2023 Triiodothyronine (T3) [Mass/volume] in Serum or Plasma T3 BLD Lab Routine Low T4 Expected: 05/26/2022, Expires: 05/26/2023 [facility] Work Phone: Comment on above: Expected: 05/26/2022, Expires: Start: 05-26-2022 End: 05-26-2023 Triiodothyronine (T3) Free [Mass/volume] in Serum or Plasma T3 FREE BLD Lab Routine Low T4 Expected: 05/26/2022, Expires: 05/26/2023 [facility] Work Phone: Comment on above: Expected: 05/26/2022, Expires: 4 Start: 05-02-2022 End: 05-02-2023 PELVIC US WHI PELVIC US WHI Anc Imaging Routine Irregular menstrual cycle Expected: 05/02/2022, Expires: 05/02/2023 [facility] Work Phone: Comment on above: Expected: 05/02/2022, Expires: 4 Start: 05-02-2022 End: 07-02-2022 Prolactin [Mass/volume] in Serum or Plasma PROLACTIN BLD Lab Routine Irregular menstrual cycle Expected: 05/02/2022, Expires: 07/02/2022 [facility] Work Phone: Comment on above: Expected: 05/02/2022, Expires: 3 Start: 05-02-2022 End: 05-02-2023 THYROID PEROXIDASE ANTIBODY BLOOD THYROID PEROXIDASE ANTIBODY BLOOD Lab Routine Irregular menstrual cycle Expected: 05/02/2022, Expires: 05/02/2023 [facility] Work Phone: Comment on above: Expected: 05/02/2022, Expires: 4 Start: 05-02-2022 End: 05-02-2023 Thyrotropin [Units/volume] in Serum or Plasma TSH BLD Lab Routine Irregular menstrual cycle Expected: 05/02/2022, Expires: 05/02/2023 [facility] Work Phone: Comment on above: Expected: 05/02/2022, Expires: 4 Start: 05-02-2022 End: 05-02-2023 Thyroxine (T4) [Mass/volume] in Serum or Plasma T4/THYROXINE BLOOD Lab Routine Irregular menstrual cycle Expected: 05/02/2022, Expires: 05/02/2023 [facility] Work Phone: Comment on above: Expected: 05/02/2022, Expires: 4 Start: 05-02-2022 End: 05-02-2023 Thyroxine (T4) free [Mass/volume] in Serum or Plasma T4 FREE/FREE THYROX Lab Routine Irregular menstrual cycle Expected: 05/02/2022, Expires: 05/02/2023 [facility] Work Phone: Comment on above: Expected: 05/02/2022, Expires: 4 Start: 05-02-2022 End: 05-02-2023 Triiodothyronine (T3) [Mass/volume] in Serum or Plasma T3 BLD Lab Routine Irregular menstrual cycle Expected: 05/02/2022, Expires: 05/02/2023 [facility] Work Phone: Comment on above: Expected: 05/02/2022, Expires: 4 Start: 05-02-2022 End: 05-02-2023 Triiodothyronine (T3) Free [Mass/volume] in Serum or Plasma T3 FREE BLD Lab Routine Irregular menstrual cycle Expected: 05/02/2022, Expires: 05/02/2023 [facility] Work Phone: Comment on above: Expected: 05/02/2022, Expires: 4 Start: 04-02-2022 DEPRESSION ASSESSMENT DEPRESSION ASSESSMENT [facility] Start: 2020 HPV Vaccine (1 - 3-dose SCDM series) HPV Vaccine (1 - 3-dose SCDM series) [facility] Start: 09-26-2016 End: 10-27-2016 *CMP Complete Metabolic Panel *CMP Complete Metabolic Panel [facility] Work Phone: Start: 09-26-2016 End: 10-27-2016 Lipid panel [AGGREGATE] *Lipid Profile [facility] Work Phone: Start: 09-26-2016 End: 10-27-2016 Thyroid stimulating hormone (TSH) *TSH [facility] Work Phone: Start: 2014 Screening for malignant neoplasm of cervix Pap Smear [facility] Start: 2012 Urine microalbumin profile [facility] Start: 2011 Anxiety Screening Anxiety Screening [facility] Start: 2011 Depression Screening Depression Screening [facility] Start: 2011 HEPATITIS C SCREENING HEPATITIS C SCREENING [facility] Start: 2011 Hepatitis C screening Hepatitis C Screening [facility] Start: 2011 HIV SCREENING HIV SCREENING [facility] Start: 2011 HIV screening HIV Screening [facility] Start: 03-23-2009 Varicella vaccination Varicella Vaccines (1 of 2 - 2-dose childhood series) [facility] Start: 2005 Depression Screening Depression Screening [facility] Start: 1993 COVID-19 VACCINE (#1) COVID-19 VACCINE (#1) [facility] Start: 1993 HEPATITIS B (1 of 3 - 3-dose series) HEPATITIS B (1 of 3 - 3-dose series) [facility] Start: 1993 Hepatitis B Vaccine (1 of 3 - 3-dose series) Hepatitis B Vaccine (1 of 3 - 3-dose series) [facility] Start: 1993 HIV screening HIV Screening [facility] Bacteria identified in Urine by Culture BACTERIAL CULTURE, URINE Microbiology Routine Dysuria Ordered: 05/07/2024 [facility] Work Phone: Comment on above: Ordered: 05/07/2024 Bacteria identified in Urine by Culture BACTERIAL CULTURE, URINE Microbiology Routine with uncertain dates in first trimester ([facility]) care, first in first trimester ([facility]) 07/18/2024 9:07 AM EDT [facility] BACTERIAL VAGINOSIS NAAT BACTERI AL VAGINOSIS NAAT Lab Routine Vaginal discharge 03/28/2024 3:12 PM EST [facility] MYRA/TRICHOMONAS NAAT MYRA /TRICHOMONAS NAAT Lab Routine Vaginal discharge 03/28/2024 3:12 PM EST [facility] Work Phone: Chlamydia trachomatis+Neisseria gonorrhoeae DNA [Presence] in Unspecified specimen by AD with probe detection GONORRHEA/CHLAMYDIA NAAT Lab Routine with uncertain dates in first trimester ([facility]) care, first in first trimester ([facility]) 07/18/2024 9:07 AM EDT [facility] Patient Education Kick Counts ED False Labor OB Triage: Return to Hospital or Notify Physician if you Experience: [facility] Work Phone: Progesterone [Mass/volume] in Serum or Plasma PROGESTERONE Lab Routine Encounter for preconception consultation 11/06/2023 8:34 AM EDT [facility] TRICHOMONAS VAGINALI S NAAT TRICHOMONAS VAGINALIS NAAT Lab Routine Screen for STD (sexually transmitted disease) 07/18/2024 9:[address] [facility] Immunizations Immunization Date Immunization Notes Care Provider [facility] 01-12-2022 influenza, injectabl e, quadrivalent, preservative free Toña Blankenship MD Work Phone: [facility] 01-12-2022 influenza virus vacc ine, unspecified formulation Lukas Darling MD Work Phone: [facility] 01-19-2021 influenza, injectabl e, quadrivalent, preservative free Toña Blankenship MD Work Phone: [facility] 01-19-2021 influenza, injectabl e, quadrivalent, contains preservative; Translations: [Fluarix PF Quadrivalent ] VERN URBAN MD [facility] 01-30-2020 Influenza, injectabl e, Madin Ana M Canine Kidney, preservative free, quadrivalent Toña Blankenship MD Work Phone: [facility] 03-28-2018 tetanus and diphther ia toxoids, adsorbed, preservative free, for adult use (5 Lf of tetanus toxoid and 2 Lf of diphtheria toxoid) VERN URBAN MD [facility] 03-28-2018 tetanus toxoid, redu vero diphtheria toxoid, and acellular pertussis vaccine, adsorbed Toña Blankenship MD Work Phone: [facility] 01-12-2016 influenza, seasonal, injectable, preservative free Toña Blankenship MD Work Phone: [facility] 02-23-2009 novel Influenza-H1N1 , live virus for nasal administration Toña Blankenship MD Work Phone: [facility] 06-15-2008 meningococcal polysaccharide (groups A, C, Y and W-135) diphtheria toxoid conjugate vaccine (MCV4P) VERN URBAN MD [facility] 06-08-2008 tetanus and diphther ia toxoids, adsorbed, preservative free, for adult use (5 Lf of tetanus toxoid and 2 Lf of diphtheria toxoid) VERN URBAN MD [facility] 04-08-1998 diphtheria, tetanus toxoids and acellular pertussis vaccine VERN URBAN MD [facility] 04-08-1998 measles, mumps and rubella virus vaccine Toña Blankenship MD Work Phone: [facility] 04-08-1998 measles/mumps/rubell a virus vaccine VERN URBAN MD [facility] 04-08-1998 poliovirus vaccine, inactivated VERN URBAN MD [facility] 10-16-1994 diphtheria, tetanus toxoids and acellular pertussis vaccine VERN URBAN MD [facility] 07-28-1994 haemophilus influenz ae type b vaccine, PRP-T conjugate VERN URBAN MD [facility] 07-28-1994 measles, mumps and rubella virus vaccine Toña Blankenship MD Work Phone: [facility] 07-28-1994 measles/mumps/rubell a virus vaccine VERN URBAN MD [facility] 04-14-1994 hepatitis B vaccine, unspecified formulation VERN URBAN MD [facility] 1993 diphtheria, tetanus toxoids and acellular pertussis vaccine VERN URBAN MD [facility] 1993 haemophilus influenz ae type b vaccine, PRP-T conjugate VERN URBAN MD [facility] 1993 hepatitis B vaccine, unspecified formulation VERN URBAN MD [facility] 1993 poliovirus vaccine, inactivated VERN URBAN MD [facility] 1993 diphtheria, tetanus toxoids and acellular pertussis vaccine VERN URBAN MD [facility] 1993 haemophilus influenz ae type b vaccine, PRP-T conjugate VERN URBAN MD [facility] 1993 poliovirus vaccine, inactivated VERN URBAN MD [facility] 1993 diphtheria, tetanus toxoids and acellular pertussis vaccine VERN URBAN MD [facility] 1993 haemophilus influenz ae type b vaccine, PRP-T conjugate VERN URBAN MD [facility] 1993 poliovirus vaccine, inactivated VERN URBAN MD [facility] 1993 hepatitis B vaccine, unspecified formulation VERN URBAN MD [facility] Payers Date Payer Category Payer Self-pay 2024 Unknown [id number] 2022 Medicaid [id number] 2022 Private Health Insurance [id number] 2022 Private Health Insurance [id number] 2019 Medicaid [id number] 1993 Unknown [id number] [id number] 1993 Unknown [id number] 1993 Unknown [id number] [id number] 1993 Unknown [id number] Unknown [id number] [id number] Unknown [id number] Social History Date Type Detail Facility Start: 09-23-2019 End: 05-02-2022 Tobacco smoking status NHIS Never smoked tobacco [facility] Start: 05-02-2022 Tobacco use and exposure Smoke less tobacco non-user [facility] Start: 05-02-2022 End: 05-07-2024 Alcohol intake Current drinker of alcohol (finding) [facility] Start: 05-02-2022 Alcohol Comment rarely [facility] Start: 1993 Sex Assigned At Not on file [facility] Start: 1993 Sex Assigned At Female A [facility] Start: 08-24-2022 End: 10-30-2023 History of Social function [facility] Start: 08-24-2022 End: 10-30-2023 Tobacco use panel [facility] Start: 10-18-2014 Adult Depression Screening Assessment 2 [facility] Tobacco smoking stat us NHIS Tobacco smoking consumption unknown [facility] Start: 11-09-2022 End: 11-19-2022 Exposure to SARS-CoV-2 (event) Not sure [facility] Start: 07-15-2024 End: 11-26-2024 Alcoholic beverage intake Ex-drinker (finding) [facility] Start: 07-15-2024 Education 18 [facility] Start: 06-01-2024 [facility] Sexual Orientation [facility]: 09-25-2018 Sex Female (finding) [facility] Goals Date Patient Goal Desired Activity /State Personal health goal Functional Status Date Assessment Result Facility 11-19-2022 Functional Status Activity Assistance [facility] 11-19-2022 Functional Status Environmental Safety Implemented Adequate room lighting, Bed in low position, Call device within reach, Non-Slip footwear, Personal items within reach, Sensory aids within reach, Traffic path in room free of clutter, Upper/Half length side rails for bed mobility, Wheels locked [facility] 11-18-2022 Functional Status N/A [facility] Mental Status Date Assessment Result Facility 11-19-2022 Mental Status Orientation Oriented x 4 [facility] 11-18-2022 Mental Status [facility] Clinical Notes 05-02-2022 to 01-18-2025 Note Date & Type Note Facility 01-18-2025 Evaluation note Diagnosis Onset Date Resolution 35 weeks gestation of acute January 18 5:37pm Decreased movements, third trimester, fetus 1 acute January 18, 2025 5:37pm [facility] Work Phone: 1(875) 509-325410-08-2025 NoteHNO ID: [id number] Author: HODA HAGER APRN.CN Service: ? Author Type: Senior Energy Consultant Type: Progress Notes Filed: 01/07/2025 15:23 Note Text: NST SUMMARY PROVIDER ASSESSMENT AND INTERPRETATION Smita Nguyen is a 29 year old female, , who is at 33w3d with an ENE of 02/22/2025, by Last Menstrual Period dating method. Indications for NST: Decreased Movement Baseline: 135 Variability: Moderate Accelerations: Present 15 X 15 Decelerations: None Contractions: TOCO: None Interpretation: Reactive SIGNATURE: Hoda Hager APRN.[facility]10-03-2025 NoteHNO ID: [id number] Author: LAURIE SERRA APRN.[employer] Service: ? Author Type: Nurse Practitioner Type: [...] visit. Either the patient or their legal enrollment representative has been informed of the risks and benefits of -- and alternatives to -- treatment through a remote evaluation and consents to proceed with the evaluation remotely. Recording using ambient AI software for draft documentation of the visit was discussed with the patient/authorized enrollment representative; all questions welcomed and answered. Patient/authorized enrollment representative agreed to proceed CC: Outpatient follow-up [...] 19 ORAL) Take by mouth once daily. [place] SACCHAROMYCES BOULARDII ORAL INOSITOL ORAL cholecalciferol, [...] disorders (more content not included)... [facility]09-10-2025 Instructions* Patient Instructions* Tatum Guillermo MA - 12/10/2024 2:36 PM EDT SEQUENTIAL SCREENINGS The [facility] offers sequential screenings for women who are [...] testing. It will require an appointment withour plastic eye technician. This is not an ultrasound performed [...] the above symptoms, contact our office at [phone] and ask to speak with anurse. After hours, you can call doctors registry at [phone] OR call [facility] at [phone] ask to have the doctor stone dresser paged. If you consider this an emergency, dial 5-2-0 or go to your nearest emergency department. NEED HELP? Are you dealing with a violent or abusive relationship? Are you a victim of rape or sexual assult? Call [facility] ([place]) 24 hour Crisis Hotline: 999.166.4256 or 179-213-4142. MANUAL Your Guide to a Healthy manual is now on-line. Visit [email or web address] to download your free copy documented in this encounter[facility] Miscellaneous Notes* Quick Notes - Camelia Herrera [...] week Camelia Herrera APRN.CNM documented in this encounterSelect [facility]2025 Progress note* Quick Notes - Camelia Herrera [...] RTO in 2 week Camelia Herrera APRN.CNM [facility]08-27-2025 Instructions* Patient Instructions* Marce Bello MA - 11/26/2024 2:38 PM EDT SEQUENTIAL SCREENINGS The [facility] offers sequential screenings for women who are [...] testing. It will require an appointment withour plastic eye technician. This is not an ultrasound performed [...] the above symptoms, contact our office at [phone] and ask to speak with anurse. After hours, you can call doctors registry at [phone] OR call [facility] at [phone] ask to have the doctor stone dresser paged. If you consider this an emergency, dial 9-1-5 or go to your nearest emergency department. NEED HELP? Are you dealing with a violent or abusive relationship? Are you a victim of rape or sexual assult? Call [facility] ([place]) 24 hour Crisis Hotline: 885.264.1375 or 176-173-1028. MANUAL Your Guide to a Healthy manual is now on-line. Visit [email or web address] to download your free copy documented in this encounter[facility] Progress note* Quick Notes - Hoda Hager [...] complaints. Leaving for vacation next week in [place]. O: See flow sheet Gen: No apparent distress Abd: Gravid, nontender ASSESSMENT/PLAN: 1. 27 weeks gestation of 2. Supervision of normal first , antepartum 3. Other depression 4. History of depression - Continue Lexapro 20 mg PO Daily - Continue vitamin and ASA - Traveling via plane to [place] next week- wearing compression stockings and increase [...] or sooner if needed Hoda Hager APRN.CNM [facility]08-27-2025 Miscellaneous Notes* Quick Notes - Hoda Hager [...] complaints. Leaving for vacation next week in [place]. O: See flow sheet Gen: No apparent distress Abd: Gravid, nontender ASSESSMENT/PLAN: 1. 27 weeks gestation of 2. Supervision of normal first , antepartum 3. Other depression 4. History of depression - Continue Lexapro 20 mg PO Daily - Continue vitamin and ASA - Traveling via plane to [place] next week- wearing compression stockings and increase [...] needed Hoda Hager APRN.CNM documented in this encounterSelect [facility] Telephone encounter Note * Telephone Encounter - Mora Villarreal RN - 11/24/2024 4:25 PM EDT Order signed and faxed. Mora Villarreal RN [facility]08-25-2025 Miscellaneous Notes* Telephone Encounter - Mora Villarreal RN - 11/24/2024 4:25 PM EDT Order signed and faxed. Mora Villarreal RN * Telephone Encounter - Glendy Castaneda LPN - 11/20/2024 5:17 PM EDT Breast pump prescription received from [employer]. Order to Mario Alberto Herrera to sign documented in this encounterSelect [facility]2025 Telephone encounter Note * Telephone Encounter - Glendy Castaneda LPN - 11/20/2024 5:17 PM EDT Breast pump prescription received from [employer]. Order to Mario Alberto Herrera to sign [facility]08-13-2025 Instructions* Patient Instructions* Camelia Herrera APRN.CNM - [...] after blood is drawn. documented in this encounterSelect [facility]2025 Progress note* Quick Notes - Camelia Herrera APRN.CNM - 11/12/2024 2:49 PM EDT EASU-S: Smita Nguyen is a 29 year old [...] RTO in 2 week Camelia Herrera APRN.CNM [facility]08-13-2025 Miscellaneous Notes* Quick Notes - Camelia Herrera [...] week Camelia Herrera APRN.CNM documented in this encounterSelect [facility] [place]07[facility]2025 Instructions* Patient Instructions* Laurie Serra APRN.CNP - [...] A refill has been sent to [facility], and you can pick it [...] --call the National Suicide Prevention Lifeline at 256 (011-826-1096) --text the Crisis Text Line (text HOME to 002560) --call 911 and let them know you are having a mental health crisis or go to your nearest Emergency Room for stabilization. --You can also call Mobile Crisis at [phone]. -- You may call the department appointment line at [phone] to schedule your appointment. -- Please call my nurse at [phone] or send me a message in OFERTALDIA with any questions or concerns between appointments. documented in this encounterSelect [facility]07-29-2025 NoteHNO ID: [id number] Author: LAURIE SERRA APRN.DAVY Service: ? Author Type: Nurse Practitioner Type: Progress Notes Filed: 10/28/2024 23:01 Note Text: FOLLOW UP - PSYCHIATRIC PROGRESS NOTE Visit Type:In person Recording using Attivio software for draft documentation of the visit was discussed with the patient/authorized enrollment representative; all questions welcomed and answered. Patient/authorized enrollment representative agreed to proceed CC: Outpatient follow-up [...] due to recommendations from her midwives at [facility]. She has not needed to use hydroxyzine [...] break from her primary job at the [employer] due to summer vacation but works at [...] when she learned of her brother and fqyrhq-dw-mgg's , but she became herself in May, [...] 19 ORAL) Take by mouth once daily. [place] SACCHAROMYCES BOULARDII ORAL INOSITOL ORAL cholecalciferol, [...] logical, and goal-directed Associat (more content not included)...[facility]07-29-2025 History of Present illness Narrative* Laurie Serra APRN.[facility] - 10/28/2024 11:32 AM EDT Images from the original note were not included. FOLLOW UP - PSYCHIATRIC PROGRESS NOTE Visit Type:In person Recording using Attivio software for draft documentation of the visit was discussed with the patient/authorized enrollment representative; all questions welcomed and answered. Patient/authorized enrollment representative agreed to proceed CC: Outpatient follow-up [...] due to recommendations from her midwives at [facility]. She has not needed to use hydroxyzine [...] April when she learned of her brother rwwkuoylc-wp-bwr's , but she became herself in May, [...] 19 ORAL) Take by mouth once daily. [place] SACCHAROMYCES BOULARDII ORAL INOSITOL ORAL cholecalciferol, [...] Appropriate Insight: Good Judgment: Good DATA REVIEWED: [facility] website checked and validated. All prescriptions have been APPROPRIATELY filled. No suspiciousactivity was identified. 10/28/2024 by Laurie Serra APRN.[facility] Psychiatric scales, Labs, and Electronic medical record ASSESSMENT & PLAN: 1. 1. FREDO (generalized anxiety disorder) (F41.1) Recurrent major depressive disorder, in full remission (F33.42) Currently well-managed with Lexapro 30 mg and Inositol. No recent use of Hydroxyzine or Ativan. Engaged in regular exercise and cognitive behavioral therapy. - Continue Lexapro 30 mg daily; refill sent to [facility]. - Advised against using Hydroxyzine [...] regimen. - Refill for Lexapro sent to [facility]. Medical Decision Making: Problems: Moderate: 2+ stable chronic illnesses Risk: Moderate: Moderate risk from testing/treatment and Drug management Medical Decision Making Level: 4 - Moderate ADD ON PSYCHOTHERAPY CODE : No SIGNATURE: Laurie Serra APRN.CNP PATIENT NAME: Smita Nguyen DATE: October 28, 2024 TIME: 11:32 AM documented in this encounterSelect [facility]07-23-2025 Instructions* Patient Instructions* Marce Bello MA - 10/22/2024 2:35 PM EDT SEQUENTIAL SCREENINGS The [facility] offers sequential screenings for women who are [...] testing. It will require an appointment withour plastic eye technician. This is not an ultrasound performed [...] the above symptoms, contact our office at [phone] and ask to speak with anurse. After hours, you can call doctors registry at [phone] OR call [facility] at [phone] ask to have the doctor stone dresser paged. If you consider this an emergency, dial 9-1-5 or go to your nearest emergency department. NEED HELP? Are you dealing with a violent or abusive relationship? Are you a victim of rape or sexual assult? Call [facility] ([place]) 24 hour Crisis Hotline: 166.368.4220 or 031-973-2445. MANUAL Your Guide to a Healthy manual is now on-line. Visit [email or web address] to download your free copy documented in this encounterSelect [facility] [place]25 Progress note* Quick Notes - Hoda Hager [...] or sooner if needed Hoda Hager APRN.CNM [facility]07-23-2025 Miscellaneous Notes* Quick Notes - Hoda Hager [...] needed Hoda Hager APRN.CNM documented in this encounterSelect [facility] [place]07-09-2025 Instructions* Patient Instructions* Lisandro Rainey MA - 10/08/2024 9:15 AM EDT SEQUENTIAL SCREENINGS The [facility] offers sequential screenings for women who are [...] testing. It will require an appointment withour plastic eye technician. This is not an ultrasound performed [...] the above symptoms, contact our office at [phone] and ask to speak with anurse. After hours, you can call doctors registry at [phone] OR call [facility] at [phone] ask to have the doctor stone dresser paged. If you consider this an emergency, dial 9-1-3 or go to your nearest emergency department. NEED HELP? Are you dealing with a violent or abusive relationship? Are you a victim of rape or sexual assult? Call [facility] ([place]) 24 hour Crisis Hotline: 425.845.4956 or 859-229-0484. MANUAL Your Guide to a Healthy manual is now on-line. Visit [email or web address] to download your free copy documented in this encounterSelect [facility] [place]07-[facility]-2025 Progress note* Quick Notes - Hoda Hager [...] or sooner if needed Hoda Hager APRN.CNM [facility]07-09-2025 Miscellaneous Notes* Quick Notes - Hoda Hager [...] needed Hoda Hager APRN.CNM documented in this encounterSelect [facility]06-30-2025 Telephone encounter Note * Telephone Encounter - Lisandro Rainey MA - 09/29/2024 10:07 AM EDT Patient scheduled for Centering. Lisandro Rainey MA [facility]06-30-2025 Miscellaneous Notes* Telephone Encounter - Lisandro Rainey MA - 09/29/2024 10:07 AM EDT Patient scheduled for Centering. Lisandro Rainey MA documented in this encounterSelect [facility]06-[facility]-2025 Telephone encounter Note * Telephone Encounter - Ana Pickens APRN.CNP - 09/23/2024 8:55 AM EDT Covering for regular provider Laurie Serra. Will approve fill at this time [facility]06-24-2025 Miscellaneous Notes* Telephone Encounter - Ana Pickens [...] 3 months or sooner if needed. Next: [facility] msg sent to schedule documented in this encounterSelect [facility]06-[facility]-2025 Telephone encounter Note * Telephone Encounter - Regina Fletcher - 09/23/2024 7:41 AM EDT Last: 06/23/24 TREATMENT PLAN: Continue Lexapro 30 mg at the same dose to address mood and anxiety symptoms. Utilize Hydroxyzine and Ativan as needed to manage anxiety symptoms. Continue engagement in individual and couple's psychotherapy. Follow up in 3 months or sooner if needed. Next: [facility] msg sent to schedule [facility]06-11-2025 Progress note* Quick Notes - Hoda Hager [...] for anatomy US and KING Hager APRN.CNM [facility] Work Phone: 1(858) 127-549106-11-2025 Miscellaneous Notes* Quick Notes - Hoda Hager [...] and KING Hager APRN.CNM documented in this encounterSelect [facility] [place]06-11-2025 Instructions* Patient Instructions* Lisandro Rainey MA - 09/10/2024 3:11 PM EDT SEQUENTIAL SCREENINGS The [facility] offers sequential screenings for women who are [...] testing. It will require an appointment withour plastic eye technician. This is not an ultrasound performed [...] the above symptoms, contact our office at [phone] and ask to speak with anurse. After hours, you can call doctors registry at [phone] OR call [facility] at [phone] ask to have the doctor stone dresser paged. If you consider this an emergency, dial 4-5-0 or go to your nearest emergency department. NEED HELP? Are you dealing with a violent or abusive relationship? Are you a victim of rape or sexual assult? Call [facility] ([place]) 24 hour Crisis Hotline: 933.253.4071 or 617-724-0858. MANUAL Your Guide to a Healthy manual is now on-line. Visit [email or web address] to download your free copy documented in this encounterSelect [facility] [place]05-16-2025 Instructions* Patient Instructions* Camelia Herrera APRN.[facility]AN[facility] - 08/15/2024 2:34 PM EDT Low Dose Aspirin This sheet talks about exposure to low dose aspirin in and while . This information should not take the place of medical care and advice from your healthcare provider.\\ What is low dose aspirin? Aspirin is also known as acetylsalicylic acid. It is a common prescription and fkug-vnf-iciuzzb medication similar to other non-steroidal inflammatory drugs [...] . For more information, please see the [employer] fact sheet Paternal Exposures at [email or web address]-[email or web address]/. SEQUENTIAL SCREENINGS The [facility] offers sequential screenings for women who are [...] testing. It will require an appointment withour plastic eye technician. This is not an ultrasound performed [...] the above symptoms, contact our office at [phone] and ask to speak with anurse. After hours, you can call doctors registry at [phone] OR call [facility] at [phone] ask to have the doctor stone dresser paged. If you consider this an emergency, dial 9-1-6 or go to your nearest emergency department. NEED HELP? Are you dealing with a violent or abusive relationship? Are you a victim of rape or sexual assult? Call [facility] ([place]) 24 hour Crisis Hotline: 254.897.7459 or 839-375-7585. MANUAL Your Guide to a Healthy manual is now on-line. Visit [email or web address] to download your free copy documented in this encounterSelect [facility]20[facility] Progress note* Quick Notes - Camelia Herrera [...] RTO in 4 weeks Camelia Herrera APRN.CNM [facility]05-16-2025 Miscellaneous Notes* Quick Notes - Camelia Herrera [...] weeks Camelia Herrera APRN.CNM documented in this encounterSelect [facility] [place]04-18-2025 Instructions* Patient Instructions* Mary Kay Wiseman LPN - 07/18/2024 7:57 AM EDT Please select the following link to access the [facility] Your Guide to a Healthy . [email or web address] documented in this encounterSelect Medical Specialty [facility]04-15-2025 NoteHNO ID: [id number] Author: YASMEEN VERA APRN.DAVY Service: ? Author Type: Nurse Practitioner Type: Progress Notes Filed: 07/18/2024 10:03 Note Text: Patient declined information developer. 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 135 tablet 0 SACCHAROMYCES BOULARDII O (more content not included)...[facility]04-15-2025 History of Present illness Narrative* Yasmeen Vera APRN.WOOD HEEL BACK LINER - 07/15/2024 4:34 PM EDT Patient declined information developer. 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 As applicable, any other physician, advance practice provider, medical student, or other health professional student that will be observing or involved in the sensitive examination for educational or training purposes was discussed with the Patient or Authorized Dictaphone Typist. The Patient or Authorized Dictaphone Typist has agreed to proceed with the sensitive [...] activity, CRL consistent with LMP. Yasmeen Vera APRN.WOOD HEEL BACK LINER SBIRT Smita Clemonscynthiaandre was given the 4P's [...] Your guide to a health and the Cna Gna. Reviewed midwifery and language arts teacher services that are available. 2) Screening: Hemoglobin [...] prakbar. Yasmeen Vera APRN.DAVY documented [facility] encounter[facility] Telephone encounter Note * Telephone Encounter - [...] bladder. Pt voiced understanding. Pamela Cooper RN [facility]04-15-2025 Miscellaneous Notes* Telephone Encounter - Pamela Cooper [...] someone. Deann Perez MA documented in this encounterSelect [facility] [place]04-[facility]25 Telephone encounter Note * Telephone Encounter - Deann Perez MA - 07/15/2024 2:52 PM EDT Attempted to contact patient by phone number listed in chart to go over new ob intake questions. Noanswer. Had to leave a voicemail. Patient was advised to come in 30 minutes early to her appointment to complete if she is unable to speak to someone. Deann Perez MA [facility]03-24-2025 Instructions* Patient Instructions* Laurie Serra, CALL OR CONTACT CENTRE OPERATOR.WOOD HEEL BACK LINER - 06/23/2024 10:47 PM EDT TREATMENT PLAN: Continue Lexapro 30 mg at the same dose to address mood and anxiety symptoms. Utilize Hydroxyzine and Ativan as needed to manage anxiety symptoms. Continue engagement in individual and couple's psychotherapy. Follow up in 3 months or sooner if needed. For those experiencing a suicidal crisis: --call the National Suicide Prevention Lifeline at 989 (715-138-9801) --text the Crisis Text Line (text HOME to 819135) --call 194 and let them know you are having a mental health crisis or go to your nearest Emergency Room for stabilization. --You can also call Mobile Crisis at [phone]. -- You may call the department appointment line at [phone] to schedule your appointment. -- Please call my nurse at [phone] or send me a message in OFERTALDIA with any questions or concerns between appointments. documented in this encounterSelect [facility] [place]03-24-2025 NoteHNO ID: [id number] Author: LAURIE SERRA APRN.DAVY Service: ? Author [...] visit. Either the patient or their legal enrollment representative has been informed of the risks [...] Affect: Full and appropri (more content not included)...[facility]03-24-2025 History of Present illness Narrative* Laurie Serra, CALL OR CONTACT CENTRE OPERATOR.WOOD HEEL BACK LINER - 06/23/2024 3:02 PM EDT Images from [...] visit. Either the patient or their legal enrollment representative has been informed of the risks [...] 2024 TIME: 3:03 PM documented in this encounterSelect [facility] [place]03-14-2025 NoteHNO ID: [id number] Author: TOÑA BLANKENSHIP MD Service: ? Author [...] Living0 SAB0 IAB0 Ectopic0 Multiple0 Live Births0 Shook Splicer History LMP: 05/18/2024 (Exact Date), Having periods Age at Menarche: Age at First : Age at Menopause: Shook Splicer History Comments: Sexual Activity: Yes; Male Contraception: [...] discussed with the Patient or Patient's Authorized Dictaphone Typist. As applicable, any other physician, advance practice provider, medical student, or other health professional student that will be observing or involved in the sensitive examination for educational or training purposes was discussed with the Patient or Authorized Dictaphone Typist. The Patient or Authorized Dictaphone Typist has agreed to proceed with the sensitive [...] levels and FSH Medi (more content not included)...[facility]03-14-2025 History of Present illness Narrative* Toña [...] Living0 SAB0 IAB0 Ectopic0 Multiple0 Live Births0 Shook Splicer History LMP: 05/18/2024 (Exact Date), Having periods Age at Menarche: Age at First : Age at Menopause: Shook Splicer History Comments: Sexual Activity: Yes; Male Contraception: [...] discussed with the Patient or Patient's Authorized Dictaphone Typist. As applicable, any other physician, advance practice provider, medical student, or other health professional student that will be observing or involved in the sensitive examination for educational or training purposes was discussed with the Patient or Authorized Dictaphone Typist. The Patient or Authorized Dictaphone Typist has agreed to proceed with the sensitive [...] Moderate Toña Blankenship MD documented in this encounterSelect [facility] [place]02-27-2025 Telephone encounter Note * Telephone Encounter - Laurie Serra APRN.CNP - 05/29/2024 9:39 AM EST Refill sent to the pharmacy. Patient is due to schedule a follow up appointment with the provider. [facility]02-27-2025 Miscellaneous Notes* Telephone Encounter - Laurie Serra [...] 03-06-24 Next appt: none documented in this encounterSelect [facility] [place]02-27-2025 Telephone encounter Note * Telephone Encounter - Robert Solis RN - 05/29/2024 9:30 AM EST Pt reports she only has 1-2 days left on this Rx. Last appt with Laurie: 03-06-24 Next appt: none [facility]02-17-2025 NoteHNO ID: [id number] Author: MARCIE SHIELDS MD Service: ? Author Type: Physician Type: Progress Notes Filed: 05/19/2024 12:36 Note Text: Smita Nguyen is a 29 year old female who presented for colored liquid plastic applier ultrasound today. Encounter Diagnosis ICD-10-CM 1. Desire for Z31.9 2. Irregular menstrual cycle N92.6 Please see report under imaging tab. Marcie Shields MD May 19, 2024 12:34 [facility]02-17-2025 History of Present illness Narrative* Marcie Shields MD - 05/19/2024 12:34 PM EST Smita Nguyen is a 29 year old female who presented for colored liquid plastic applier ultrasound today. Encounter Diagnosis ICD-10-CM 1. Desire for Z31.9 2. Irregular menstrual cycle N92.6 Please see report under imaging tab. Marcie Shields MD May 19, 2024 12:34 PM documented in this encounterSelect [facility] [place]02-05-2025 NoteHNO ID: [id number] Author: BRENNAN HEAD APRN.WOOD HEEL BACK LINER Service: ? Author Type: Nurse Practitioner Type: Progress Notes Filed: 05/07/2024 11:12 Note Text: Flight Operations Manager offered: Patient declines. Smita Nguyen is a [...] L0 SAB0 IAB0 Ectopic0 Multiple0 Live Births0 Shook Splicer History LMP: 03/22/2024 (Exact Date), Having periods Age at Menarche: Age at First : Age at Menopause: Shook Splicer History Comments: Sexual Activity: Yes; Male Contraception: [...] or incontinence. + dysuria, odor Expanded ROS: PERSONAL PROPERTY ASSESSOR: Negative for abnormal vaginal bleeding, abnormal vaginal [...] management Medical Decision Making Level: 3 - [facility] History of Present illness Narrative* Brennan Head APRN.CNP - 05/07/2024 10:36 AM EST Flight Operations Manager offered: Patient declines. Smita Nguyen is a [...] L0 SAB0 IAB0 Ectopic0 Multiple0 Live Births0 Shook Splicer History LMP: 03/22/2024 (Exact Date), Having periods Age at Menarche: Age at First : Age at Menopause: Shook Splicer History Comments: Sexual Activity: Yes; Male Contraception: [...] or incontinence. + dysuria, odor Expanded ROS: PERSONAL PROPERTY ASSESSOR: Negative for abnormal vaginal bleeding, abnormal vaginal [...] Level: 3 - Low documented in this encounterSelect [facility] [place]12-27-2024 NoteHNO ID: [id number] Author: CAMELIA HERRERA APRN.CNM Service: ? Author Type: Senior Energy Consultant Type: Progress Notes Filed: 03/28/2024 15:16 Note Text: Smita Nguyen is a 28 year old female who presents for problem visit HPI: Presents today with complaint of vaginal discharge, odor, and concerns she has another BV infection. Denies any other complaint. OB History T0 L0 SAB0 IAB0 Ectopic0 Multiple0 Live Births0 Shook Splicer History LMP: 03/22/2024 (Exact Date), Having periods Age at Menarche: Age at First : Age at Menopause: Shook Splicer History Comments: Sexual Activity: Yes; Male Contraception: [...] discussed with the Patient or Patient's Authorized Dictaphone Typist. As applicable, any other physician, advance practice provider, medical student, or other health professional student that will be observing or involved in the sensitive examination for educational or training purposes was discussed with the Patient or Authorized Dictaphone Typist. The Patient or Authorized Dictaphone Typist has agreed to proceed with the sensitive examination. (Sensitive examination includes inspection and/or palpation of the breasts, pelvis, prostate and anorectal regions). EXAM: BP 110/74 Wt 172 lb (78.0kg) LMP 03/22/2024 GENERAL: pleasant, female in no apparent distress HEENT: Normocephalic and atraumatic NECK: Supple and full range of motion PELVIC: external genitalia normal, normal Bartholin's glands, urethra, Manson's glands, no vulvar lesions, no cervical lesions, [...] MYRA/TRICHOMONAS NAAT BACTERIAL VAGINOSIS NAAT Camelia Herrera APRN.[facility]12-27-2024 History of Present illness Narrative* Camelia Herrera APRN.[facility] - 03/28/2024 9:32 AM EST Smita Nguyen is a 28 year old female who presents for problem visit HPI: Presents today with complaint of vaginal discharge, odor, and concerns she has another BV infection. Denies any other complaint. OB History T0 L0 SAB0 IAB0 Ectopic0 Multiple0 Live Births0 Shook Splicer History LMP: 03/22/2024 (Exact Date), Having periods Age at Menarche: Age at First : Age at Menopause: Shook Splicer History Comments: Sexual Activity: Yes; Male Contraception: [...] discussed with the Patient or Patient's Authorized Dictaphone Typist. As applicable, any other physician, advance practice provider, medical student, or other health professional student that will be observing or involved in the sensitive examination for educational or training purposes was discussed with the Patient or Authorized Dictaphone Typist. The Patient or Authorized Dictaphone Typist has agreed to proceed with the sensitive examination. (Sensitive examination includes inspection and/or palpation of the breasts, pelvis, prostate and anorectal regions). EXAM: BP 110/74 Wt 172 lb (78.0kg) LMP 03/22/2024 GENERAL: pleasant, female in no apparent distress HEENT: Normocephalic and atraumatic NECK: Supple and full range of motion PELVIC: external genitalia normal, normal Bartholin's glands, urethra, Manson's glands, no vulvar lesions, no cervical lesions, [...] MYRA/TRICHOMONAS NAAT BACTERIAL VAGINOSIS NAAT Camelia Herrera, CALL OR CONTACT CENTRE OPERATOR.CNM documented in this encounterSelect [facility] [place]12-10-2024 Telephone encounter Note * Telephone Encounter - Pamela Cooper RN - 03/11/2024 4:26 PM EST Last OV 02/04/24. Requested Prescriptions Pending Prescriptions Disp Refills progesterone micronized (PROMETRIUM) 100 mg capsule 90 capsule 11 Sig: Take 3 capsules by mouth once daily. Used for mood. Progesterone - Compound Pamela Cooper RN [facility]12-10-2024 Miscellaneous Notes* Telephone Encounter - Pamela Cooper RN - 03/11/2024 4:26 PM EST Last OV 02/04/24. Requested Prescriptions Pending Prescriptions Disp Refills progesterone micronized (PROMETRIUM) 100 mg capsule 90 capsule 11 Sig: Take 3 capsules by mouth once daily. Used for mood. Progesterone - Compound Pamela Cooper RN documented in this encounterSelect [facility] [place]12-05-2024 Instructions* Patient Instructions* Laurie Serra APRN.WOOD HEEL BACK LINER - 03/06/2024 8:55 AM EST TREATMENT PLAN: [...] --call the National Suicide Prevention Lifeline at 826 (198-607-8000) --text the Crisis Text Line (text HOME to 672938) --call 311 and let them know you are having a mental health crisis or go to your nearest Emergency Room for stabilization. --You can also call Mobile Crisis at [phone]. -- You may call the department appointment line at [phone] to schedule your appointment. -- Please call my nurse at [phone] or send me a message in OFERTALDIA with any questions or concerns between appointments. documented in this encounterSelect Medical [facility] [place]12-05-2024 History of Present illness Narrative* Laurie Serra [...] visit. Either the patient or their legal enrollment representative has been informed of the risks [...] organized. Did have a meeting with her injection molding supervisor to discuss some of her concerns. [...] 2024 TIME: 8:35 AM documented in this encounterSelect Medical [facility]ty [facility] [place]12-05-2024 NoteHNO ID: [id number] Author: LAURIE SERRA APRN.CNP Service: ? Author [...] visit. Either the patient or their legal enrollment representative has been informed of the risks [...] organized. Did have a meeting with her injection molding supervisor to discuss some of her concerns. [...] jerry, phonetics, and sy (more content not included)...[facility] 02-04-2024 History of Present illness Narrative* Camelia Herrera APRN.LANETTE - 02/04/2024 2:34 PM EST Flight Operations Manager offered: Patient declines. Smita is a 28 year old who presents for an annual gynecologic exam. Attempting for the last 7 months. Did not attempt in December due to stress and needed abreak. Stopped using OPK kits but did show LH surge when she was using them, notices mucous change during ovulation. Davison every other day when she is trying [...] No Exercise: 4-6 times a week doing [employer] OB History T0 L0 SAB0 IAB0 Ectopic0 Multiple0 Live Births0 Shook Splicer History LMP: 01/15/2024 (Exact Date), Having periods Age at Menarche: Age at First : Age at Menopause: Shook Splicer History Comments: Sexual Activity: Yes; Male Contraception: [...] discussed with the Patient or Patient's Authorized Dictaphone Typist. As applicable, any other physician, advance practice provider, medical student, or other health professional student that will be observing or involved in the sensitive examination for educational or training purposes was discussed with the Patient or Authorized Dictaphone Typist. The Patient or Authorized Dictaphone Typist has agreed to proceed with the sensitive [...] external genitalia normal, normal Bartholin's glands, urethra, Manson's glands, no vulvar lesions, no cervical lesions, [...] needed Camelia Herrera APRN.CNM documented in this encounterSelect Medical [facility] [place]10-30-2024 Instructions* Patient Instructions* Laurie Serra APRN.WOOD HEEL BACK LINER - 01/30/2024 10:22 PM EDT Anastacio Grullon, [...] the National Suicide Prevention Lifeline at 988 (852-529-5661) --text the Crisis Text Line (text HOME to 069447) --call 911 and let them know you are having a mental health crisis or go to your nearest Emergency Room for stabilization. --You can also call Mobile Crisis at [phone]. Next appointment: March 06 at 8:30 am virtual -- You may call the department appointment line at [phone] to schedule your appointment. -- Please call my nurse at [phone] or send me a message in OFERTALDIA with any questions or concerns between appointments. documented in this encounterSelect Medical [facility] [place]10-25-2024 History of Present illness Narrative* Laurie Serra [...] visit. Either the patient or their legal enrollment representative has been informed of the risks [...] work has been normal. Has seen her electrical worker. Has not started the recommended supplements. Reviewed that list of recommended supplements and encouraged patient to start them. Asked about continuing her compounded progesterone. Encouraged that she reach out to her Senior Energy Consultant Yolanda to ask about that. Does still [...] 2024 TIME: 1:57 PM documented in this encounterSelect Medical [facility] [place]07-30-2024 Instructions* Patient Instructions* Camelia Herrera APRN.CNM - 10/30/2023 10:13 AM EDT Day 21 progesterone (11/07/23) Day 3 of next cycle get estradiol and FSH Other labs: - WHIIVF ANTI MULLERIAN HORMONE - RUBELLA IGG ANTIBODY - VARICELLA ZOSTER IGG - HEMOGLOBIN A1C - THYROID STIMULATING HORMONE If you desire carrier screening, please feel free to contact company for pricing and let me know. [facility] place the order. [email or web address] If you ever desire referral to infertility please do not hesitate to ask. Can try these supplementsand see what happens in the next 3 months Supplements: 1) Berberine 400 mg three times daily for PCOS 2) Inositol (Edwin-inositol and O-sxvam-iyvhsudj 40:1 ratio)I recommend using a combination product containing edwin-inositol and s-crero-yjzkjdla, up to 4 grams per day, for maximum benefit. Can add Iniosotil 2,000mg that you have [email or web address]-[email or web address] 3) Vitex [email or web address]://[email or web address]-rawsax-[email or web address]-glez-capsule 4) Vitamin Urology for semen analysis documented in this encounterSelect Medical [facility]ty [facility] [place]07-30-2024 History of Present illness Narrative* Camelia Herrera [...] flow. Using OPK and showing LH surge. Davison every day to every other day after last day of menses. Making sure to having intercourse near and on day 14 at ovulation. Notices increased discharge at time of ovulation. No history of STDs or pelvic surgery. [place], together for 5 year. Was using condoms or withdrawal method prior to trying to conceive. OB History T0 L0 SAB0 IAB0 Ectopic0 Multiple0 Live Births0 Shook Splicer History LMP: 10/17/2023 (Exact Date), Having periods Age at Menarche: Age at First : Age at Menopause: Shook Splicer History Comments: Sexual Activity: Yes; Male Contraception: [...] 10 mg by mouth daily at bedtime. 223-lrfs-rvumf-omega3 (ONE-A-DAY -1) 27 mg iron- 800 mcg-235 [...] time Camelia Herrera APRN.CNM documented in this encounterSelect Medical [facility]ty [facility]07-18-2024 History of Present illness Narrative* Laurie Serra [...] visit. Either the patient or their legal enrollment representative has been informed of the risks [...] night a week when her is in [place] for work. Cannot remember the last time [...] Take 2 tablets by mouth once daily. 944-zmpm-dttdb-omega3 (ONE-A-DAY -1) 27 mg iron- 800 mcg-235 [...] suspiciousactivity was identified. 10/18/2023 by Laurie Serra APRN.WOOD HEEL BACK LINER DIAGNOSIS: Other obsessive-compulsive disorders (primary encounter diagnosis) [...] which included preparing to see the patient, ismo-bq-yfaf patient care, completing clinical documentation, and counseling and educating the patient/family/caregiver, ordering medications/labs. ADD ON PSYCHOTHERAPY CODE : No SIGNATURE: Laurie Serra APRN.CNP PATIENT NAME: Smita Nguyen DATE: October 18, 2023 TIME: 8:58 AM documented in this encounterSelect Medical Specialty [facility]05-17-2024 Telephone encounter Note * Telephone Encounter - Mora Villarreal RN - 08/17/2023 1:37 PM EDT Patient notified. She thinks menses started today. Will call with further concerns. Mora Villarreal RN [facility]05-17-2024 Miscellaneous Notes* Telephone Encounter - Mora Villarreal [...] tomorrow. Mora Villarreal RN documented in this encounterSelect Medical Specialty [facility] [place]05-17-2024 Telephone encounter Note * Telephone Encounter - Camelia Herrera APRN.CNM - 08/17/2023 12:12 PM EDT Can order serum hCG if negative recommend follow up appt virtual. Camelia Herrera APRN.CNM [facility]05-16-2024 Telephone encounter Note* Telephone Encounter - Mora [...] back in office tomorrow. Mora Villarreal RN [facility]04-17-2024 History of Present illness Narrative* Laurie Serra APRN.WOOD HEEL BACK LINER - 07/18/2023 2:43 PM EDT Images from [...] visit. Either the patient or their legal enrollment representative has been informed of the risks [...] infection. Reports premenstrual worsening of her anxiety. [place] that anxiety began in 2011 after she [...] on File Prior to Visit Medication Sig 344-nkgz-xpdrw-omega3 (ONE-A-DAY -1) 27 mg iron- 800 mcg-235 [...] REVIEWED: Psychiatric scales, Electronic medical record, and [facility] PDMP website checked and validated. All prescriptions [...] the National Suicide Prevention Lifeline at 988 (501.481.4646) --text the Crisis Text Line (text HOME to 570460) --call 911 and let them know you are having a mental health crisis or go to your nearest Emergency Room for stabilization. --You can also call Mobile Crisis at [phone]. MEDICATION CHANGES: Current medication regimen unchanged. See [...] which included preparing to see the patient, osqi-sj-cmys patient care, completing clinical documentation, and counseling and educating the patient/family/caregiver, ordering medications/labs. ADD ON PSYCHOTHERAPY CODE : No SIGNATURE: Laurie Serra APRN.WOOD HEEL BACK LINER PATIENT NAME: Smita Nguyen DATE: July 18, 2023 TIME: 2:43 PM documented in this encounterSelect [facility]03-20-2024 History of Present illness Narrative* Camelia Herrera APRN.CNM - 06/20/2023 2:32 PM EDT Smita Nguyen is a 28 year old female who presents for problem visit HPI: Trying to conceive in last 3 months. Using OPK and showing LH surge. Davison every day to every other day after [...] L0 SAB0 IAB0 Ectopic0 Multiple0 Live Births0 Shook Splicer History LMP: 06/09/2023 (Exact Date), Having periods Age at Menarche: Age at First : Age at Menopause: Shook Splicer History Comments: Sexual Activity: Yes; Male Contraception: Condom No past medical history on file. No past surgical history on file. No family history on file. Social History Tobacco Use Smoking status: Never Smokeless tobacco: Never Vaping Use Vaping Use: Never used Substance Use Topics Alcohol use: Yes Comment: rarely Drug use: Never Current Outpatient Medications Medication Sig 297-ovoz-psddi-omega3 (ONE-A-DAY -1) 27 mg iron- 800 mcg-235 [...] cap Take by mouth as directed. PNV 414-dbcc-sonzrm-dha 90 mg iron- 1 mg-200 mg cap [...] chemicals. Camelia Herrera APRN.CNM documented in this encounterSelect Medical [facility] [place]03-19-2024 History of Present illness Narrative* Laurie Serra [...] visit. Either the patient or their legal enrollment representative has been informed of the risks [...] as leaves that day to work in [place]. They are staying at their new place [...] cap Take by mouth as directed. PNV 905-mlcb-bdlbsa-dha 90 mg iron- 1 mg-200 mg cap [...] Psychiatric scales, Labs, Electronic medical record, and Sql Developer notes DIAGNOSIS: OCD Generalized Anxiety Disorder MDD, [...] which included preparing to see the patient, flvt-gc-uhvt patient care, completing clinical documentation, obtaining and/or [...] 2023 TIME: 2:07 PM documented in this encounterSelect [facility]11-27-2023 Telephone encounter Note * Telephone Encounter - Laurie Serra APRN.CNP - 02/26/2023 12:56 PM EST Collaborated with patient's psychologist Maia Lockett regarding patient's current presentation, medication management plan and coping strategies. [facility] Work Phone: 1(529) 818-217211-27-2023 Miscellaneous Notes* Telephone Encounter - Laurie Serra [...] this patient. She can be reached at [phone]. documented in this encounterSelect [facility]11-27-2023 History of Present illness Narrative* Laurie Serra [...] visit. Either the patient or their legal enrollment representative has been informed of the risks [...] cap Take by mouth as directed. PNV 585-dwmd-byynql-dha 90 mg iron- 1 mg-200 mg cap [...] which included preparing to see the patient, mxpm-ou-nnjg patient care, completing clinical documentation, obtaining and/or [...] 2023 TIME: 9:01 AM documented in this encounterSelect [facility]11-17-2023 Miscellaneous Notes* Telephone Encounter - Mora Villarreal RN - 02/16/2023 9:45 AM EST Last annual with [facility] 01/29/23. Requested Prescriptions Pending Prescriptions Disp Refills progesterone micronized (PROMETRIUM) 100 mg capsule 90 capsule 11 Sig: Take 3 capsules by mouth once daily. Used for mood. Progesterone - Compound Mora Villarreal RN documented in this encounterSelect [facility]11-09-2023 Telephone encounter Note * Telephone Encounter - Lise Villar - 02/08/2023 12:55 PM EST Patient verified by name and . Maia Lockett, her Psychologist is calling, She would like to consult with Laurie about this patient. She can be reached at [phone]. [facility]11-06-2023 History of Present illness Narrative* Laurie Serra [...] visit. Either the patient or their legal enrollment representative has been informed of the risks [...] Her parents are going to travel to [place] for 1 week but her will be [...] cap Take by mouth as directed. PNV 501-vqck-mpgpjs-dha 90 mg iron- 1 mg-200 mg cap [...] REVIEWED: Psychiatric scales, Electronic medical record, and Sql Developer notes DIAGNOSIS: PRIMARY: OCD Secondary : Generalized [...] which included preparing to see the patient, dafv-su-qiwe patient care, completing clinical documentation, obtaining and/or reviewing separately obtained history, counseling and educating the patient/family/caregiver, ordering medications, galina ts, or procedures, independently interpreting results (not separately reported), and communicating results to the patient/family/caregiver. ADD ON PSYCHOTHERAPY CODE : No SIGNATURE: Laurie Serra APRN.CNP PATIENT NAME: Smita Nguyen DATE: February 05, 2023 TIME: 10:02 AM documented in this encounterSelect [facility]10-30-2023 History of Present illness Narrative* Camelia Herrera APRN.CNM - 01/29/2023 2:46 PM EDT Smita is a 27 year old who presents for an annual gynecologic exam without complaints. Recent episode in September with mental health and has decided to not conceive at this time. Coping ok with this but just disappointed. Continues to work with Laurie Rousseau NP and psychology at [facility]. Getting ready to start EMDR. Menses: cycles [...] L0 SAB0 IAB0 Ectopic0 Multiple0 Live Births0 Shook Splicer History LMP: 01/26/2023 (Exact Date), Having periods Age at Menarche: Age at First : Age at Menopause: Shook Splicer History Comments: Sexual Activity: Yes; Male Contraception: [...] external genitalia normal, normal Bartholin's glands, urethra, Manson's glands, no vulvar lesions, no cervical lesions, [...] one year or sooner as needed Camelia Hrerera APRN.CNM documented in this encounterSelect [facility]10-23-2023 History of Present illness Narrative* Laurie Serra [...] visit. Either the patient or their legal enrollment representative has been informed of the risks [...] able to go and spend time in [place] with and friends. She has been able [...] improved PATIENT DATA: Generalized Anxiety Disorder Scale (FRDEO-7) FREDO - 7 SCORES 01/09/2023 01/09/2023 01/22/2023 [...] cap Take by mouth as directed. PNV 194-xwkt-xvaizm-dha 90 mg iron- 1 mg-200 mg cap [...] which included preparing to see the patient, bnow-ic-xhmd patient care, completing clinical documentation, obtaining and/or reviewing separately obtained history, counseling and educating the patient/family/caregiver, ordering medications, galina ts, or procedures, and communicating results to the patient/family/caregiver. ADD ON PSYCHOTHERAPY CODE : No SIGNATURE: Laurie Serra APRN.CNP PATIENT NAME: Smita Nguyen DATE: January 22, 2023 TIME: 9:32 AM documented in this encounterSelect [facility]10-17-2023 Miscellaneous Notes* Telephone Encounter - Nanette Evans RN - 01/16/2023 9:53 AM EDT Called Rasheeda Chang, director of pharmacy and given Camelia Herrera's directive * Telephone Encounter - Camelia Herrera APRN.CNM - 01/15/2023 6:51 PM EDT Pharmacy can verify what patient prefers, I am ok to keep sublingual but can discuss cost with patient. Camelia Herrera APRN.CNM * Telephone Encounter - Alexandrea Danielle LPN - 01/15/2023 2:02 PM EDT [facility] pharmacy calling and wanted to know on the progestrone, she had been getting sublingual compound. Do you want to continue that or change to capsule? Please advise. Alexandrea Danielle LPN documented in this encounterSelect [facility]10-16-2023 Miscellaneous Notes* Telephone Encounter - Harish Magallanes RN - 01/15/2023 10:13 AM EDT Patient scheduled for annual exam with [facility] 01/29. Requested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 screening for malformation using ultrasound ([facility])- Primary 12 weeks gestation of (HCC) state, incidental [facility] Diagnosis Supervision of normal first , antepartum (HCC)- Primary History of depression Personal history of other mental disorder TMJ (temporomandibular joint syndrome) Temporomandibular joint disorders, unspecified History of Lyme disease Personal history of other infectious and parasitic disease 16 weeks gestation of (HCC) state, incidental [facility] Diagnosis Supervision of normal first , antepartum (HCC)- Primary History of depression Personal history of other mental disorder 20 weeks gestation of (HCC) state, incidental [facility] Diagnosis Encounter for anatomic survey (HCC)- Primary Encounter for anatomic survey 20 weeks gestation of (HCC) state, incidental [facility] Diagnosis Supervision of normal first , antepartum (HCC)- Primary 22 weeks gestation of (HCC) state, incidental Other depression [facility]* Diagnosis FREDO (generalized anxiety disorder)- Primary Generalized anxiety disorder Other obsessive-compulsive disorders Recurrent major depressive disorder, in full remission Encounter for long-term (current) use of medications Encounter for long-term (current) use of other medications [facility] Diagnosis Supervision of normal first [...] other mental disorder documented [facility] this [facility] Medical Records Department [address] [place] [address] OB Triage Physician Note 01/30/25 0855 MR#: [id number] Acct: [id number] Name: SMITA NGUYEN Rep #:[id number] : 1995 29 From: Toña Blankenship MD PCP: Evie Avila, TRAVELING FREIGHT AGENT-C Status:DE P CLI Y Location: [facility] HPI - General General Date [...] MD Cosigner Signature (if applicable): Date CC: TRAVELING FREIGHT AGENT-C Evie Avila; Dr. Toña Blankenship MD ~ [facility] To[facility] Blankenship [facility] Note Date/Time January 30, 2025 9 :59am [facility] Medical Records Department [address] [place] [address] OB Triage Physician Note 01/30/25 0855 MR#: [id number] Acct: [id number] Name: SMITA NGUYEN Rep #:[id number] : 1995 From: Toña Blankenship MD PCP: EDI Morgan Status:DE P CLI Y Location: [facility] HPI - General General Date [...] Avila; Dr. Toña Blankenship MD ~ Signed [facility] Work Phone: Hospital course Narrative No data available for this section [facility] Hospital Discharge instructions No data available for this section [facility] Progress note No data available for this section [facility] Reason for referral (narrative)* Diagnostic Procedure Only (Routine) - Authorized Specialty Diagnoses / Procedures Referred By Contuma t Referred To Contact [facility] Diagnoses Irregular menstrual cycle Procedures PELVIC US WHI US PELVIC NONOBSTETRIC REAL-TIME IMAGE COMPLETE Camelia Herrera APRN.CNM [address] [place] [address] [facility] [address] [place] [id number] Referral ID Status Reason Start Date Expiration Date Visits Requested Visits Authorized [id number] Authorized Auto-Generat ed Referral 05/02/2022 05/02/[address] [facility] for referral (narrative)* Diagnostic Procedure Only (Routine) - Authorized Specialty Diagnoses / Procedures Referred By Contac t Referred To Contact [facility] Diagnoses Desire for Irregular menstrual cycle Procedures PELVIC US WHI US PELVIC NONOBSTETRIC REAL-TIME IMAGE COMPLETE Brennan Head APRN.CNP [address] [place] [address] [facility] [address] [place] [id number] Referral ID Status Reason Start Date Expiration Date Visits Requested Visits Authorized [id number] Authorized Auto-Generat ed Referral 05/07/2024 05/07/2025 1 1 [facility] for referral (narrative)No reason for referral information [facility]Pe[facility] Work Phone: Reason for visit Narrative* Diagnostic Procedure Only (Routine) - Closed Specialty Diagnoses / Procedures Referred By Contac t Referred To Contact [facility] Diagnoses Irregular menstrual cycle Procedures PELVIC US WHI US PELVIC NONOBSTETRIC REAL-TIME IMAGE COMPLETE Camelia Herrera APRN.CNM [address] [place] [address] [address] Referral ID Status Reason Start Date Expiration Date V isits Requested Visits Authorized [id number] Closed Auto-Generate d Referral 05/02/2022 05/02/2023 1 1 [facility] for visit Narrative* Diagnostic Procedure Only (Routine) - Closed Specialty Diagnoses / Procedures Referred By Contac t Referred To Contact [facility] Diagnoses Desire for Irregular menstrual cycle Procedures PELVIC US WHI US PELVIC NONOBSTETRIC REAL-TIME IMAGE COMPLETE Brennan Head APRN.CNP [address] [place] [address] Phone: tel: fax: [facility] [address] [place] [id number] Referral ID Status Reason Start Date Expiration Date V isits Requested Visits Authorized [id number] Closed Auto-Generate d Referral 05/07/2024 05/07/2025 1 1 [facility] N[facility]* Diagnostic Procedure Only (Routine) - Closed Specialty Diagnoses / Procedures Referred By Pooja mayo Referred To Contact [facility] Diagnoses with uncertain dates in first trimester (HCC) care, first in first trimester (HCC) Procedures OBSTETRIC ULTRASOUND WHI US PREG UTERUS AFTER 1ST TRIMEST GESTATION Yasmeen Vera APRN.[employer] [address] [place] [address] Phone: tel: fax: [address] [address] Referral ID Status Reason Start Date Expiration Date V isits Requested Visits Authorized [id number] Closed Auto-Generate d Referral 07/18/2024 07/18/2025 1 1 [facility] Summary Purpose Family History No Family History [...] MINS Camelia Herrera APRN.CNM [address] [place] [address] [facility] [address] [address] Referral ID Status Reason Start Date Expiration Date Visits Requested Visits Authorized [id number] Pending Review Auto-Generat ed Referral 05/26/2022 05/26/2023 [...] section and content) DATE CREATED AUTHOR 07/07/2020 [facility] DATE CREATED AUTHOR AUTHOR'S ORGANIZ ATION 11/21/2022 [facility] DATE CREATED AUTHOR AUTHOR'S ORGANIZ ATION 12/01/2022 [facility] ([place]) DATE CREATED AUTHOR AUTHOR'S ORGANIZ ATION 01/12/2025 [facility] DATE CREATED AUTHOR AUTHOR'S ORGANIZ ATION 01/31/2025 [facility] DATE CREATED AUTHOR AUTHOR'S ORGANIZ ATION 02/06/2025 [facility] Source Comments (unrecognize d section and content) In the event this informatio n is protected by the Federal Confidentiality of Alcohol and Drug Abuse Patient Records regulations: The Federal rules restrict any use of the information to criminally investigate or prosecute any alcohol or drug abuse patient.[facility] the event this information is protected by the Federal Confidentiality of Alcohol and Drug Abuse Patient Records regulations: The Federal rules restrict any use of the information to criminally investigate or prosecute any alcohol or drug abuse patient.[facility] the event this information is protected by the Federal Confidentiality of Alcohol and Drug Abuse Patient Records regulations: The Federal rules restrict any use of the information to criminally investigate or prosecute any alcohol or drug abuse patient.[facility] the event this information is protected by the Federal Confidentiality of Alcohol and Drug Abuse Patient Records regulations: The Federal rules restrict any use of the information to criminally investigate or prosecute any alcohol or drug abuse patient.[facility] the event this information is protected by the Federal Confidentiality of Alcohol and Drug Abuse Patient Records regulations: The Federal rules restrict any use of the information to criminally investigate or prosecute any alcohol or drug abuse patient.[facility] the event this information is protected by the Federal Confidentiality of Alcohol and Drug Abuse Patient Records regulations: The Federal rules restrict any use of the information to criminally investigate or prosecute any alcohol or drug abuse patient.[facility] the event this information is protected by the Federal Confidentiality of Alcohol and Drug Abuse Patient Records regulations: The Federal rules restrict any use of the information to criminally investigate or prosecute any alcohol or drug abuse patient.[facility] the event this information is protected by the Federal Confidentiality of Alcohol and Drug Abuse Patient Records regulations: The Federal rules restrict any use of the information to criminally investigate or prosecute any alcohol or drug abuse patient.[facility] the event this information is protected by the Federal Confidentiality of Alcohol and Drug Abuse Patient Records regulations: The Federal rules restrict any use of the information to criminally investigate or prosecute any alcohol or drug abuse patient.[facility] the event this information is protected by the Federal Confidentiality of Alcohol and Drug Abuse Patient Records regulations: The Federal rules restrict any use of the information to criminally investigate or prosecute any alcohol or drug abuse patient.[facility] the event this information is protected by the Federal Confidentiality of Alcohol and Drug Abuse Patient Records regulations: The Federal rules restrict any use of the information to criminally investigate or prosecute any alcohol or drug abuse patient.[facility] the event this information is protected by the Federal Confidentiality of Alcohol and Drug Abuse Patient Records regulations: The Federal rules restrict any use of the information to criminally investigate or prosecute any alcohol or drug abuse patient.[facility] the event this information is protected by the Federal Confidentiality of Alcohol and Drug Abuse Patient Records regulations: The Federal rules restrict any use of the information to criminally investigate or prosecute any alcohol or drug abuse patient.[facility] the event this information is protected by the Federal Confidentiality of Alcohol and Drug Abuse Patient Records regulations: The Federal rules restrict any use of the information to criminally investigate or prosecute any alcohol or drug abuse patient.[facility] the event this information is protected by the Federal Confidentiality of Alcohol and Drug Abuse Patient Records regulations: The Federal rules restrict any use of the information to criminally investigate or prosecute any alcohol or drug abuse patient.[facility] the event this information is protected by the Federal Confidentiality of Alcohol and Drug Abuse Patient Records regulations: The Federal rules restrict any use of the information to criminally investigate or prosecute any alcohol or drug abuse patient.[facility] the event this information is protected by the Federal Confidentiality of Alcohol and Drug Abuse Patient Records regulations: The Federal rules restrict any use of the information to criminally investigate or prosecute any alcohol or drug abuse patient.[facility] the event this information is protected by [...] or prosecute any alcohol or drug abuse patient.[facility] the event this information is protected by the Federal Confidentiality of Alcohol and Drug Abuse Patient Records regulations: The Federal rules restrict any use of the information to criminally investigate or prosecute any alcohol or drug abuse patient.[facility] the event this information is protected by the Federal Confidentiality of Alcohol and Drug Abuse Patient Records regulations: The Federal rules restrict any use of the information to criminally investigate or prosecute any alcohol or drug abuse patient.[facility] the event this information is protected by the Federal Confidentiality of Alcohol and Drug Abuse Patient Records regulations: The Federal rules restrict any use of the information to criminally investigate or prosecute any alcohol or drug abuse patient.[facility] the event this information is protected by the Federal Confidentiality of Alcohol and Drug Abuse Patient Records regulations: The Federal rules restrict any use of the information to criminally investigate or prosecute any alcohol or drug abuse patient.[facility] the event this information is protected by the Federal Confidentiality of Alcohol and Drug Abuse Patient Records regulations: The Federal rules restrict any use of the information to criminally investigate or prosecute any alcohol or drug abuse patient.[facility] the event this information is protected by the Federal Confidentiality of Alcohol and Drug Abuse Patient Records regulations: The Federal rules restrict any use of the information to criminally investigate or prosecute any alcohol or drug abuse patient.[facility] the event this information is protected by the Federal Confidentiality of Alcohol and Drug Abuse Patient Records regulations: The Federal rules restrict any use of the information to criminally investigate or prosecute any alcohol or drug abuse patient.[facility] the event this information is protected by the Federal Confidentiality of Alcohol and Drug Abuse Patient Records regulations: The Federal rules restrict any use of the information to criminally investigate or prosecute any alcohol or drug abuse patient.[facility] the event this information is protected by the Federal Confidentiality of Alcohol and Drug Abuse Patient Records regulations: The Federal rules restrict any use of the information to criminally investigate or prosecute any alcohol or drug abuse patient.[facility] [place]In the event this information is protected by the Federal Confidentiality of Alcohol and Drug Abuse Patient Records regulations: The Federal rules restrict any use of the information to criminally investigate or prosecute any alcohol or drug abuse patient.[facility] [place]In the event this information is protected by the Federal Confidentiality of Alcohol and Drug Abuse Patient Records regulations: The Federal rules restrict any use of the information to criminally investigate or prosecute any alcohol or drug abuse patient.[facility] [place]stownIn the event this information is protected by the Federal Confidentiality of Alcohol and Drug Abuse Patient Records regulations: The Federal rules restrict any use of the information to criminally investigate or prosecute any alcohol or drug abuse patient.[facility] [place]stownIn the event this information is protected by the Federal Confidentiality of Alcohol and Drug Abuse Patient Records regulations: The Federal rules restrict any use of the information to criminally investigate or prosecute any alcohol or drug abuse patient.[facility] [place]In the event this information is protected by the Federal Confidentiality of Alcohol and Drug Abuse Patient Records regulations: The Federal rules restrict any use of the information to criminally investigate or prosecute any alcohol or drug abuse patient.[facility] [place]stownIn the event this information is protected by the Federal Confidentiality of Alcohol and Drug Abuse Patient Records regulations: The Federal rules restrict any use of the information to criminally investigate or prosecute any alcohol or drug abuse patient.[facility] [place]stownIn the event this information is protected by the Federal Confidentiality of Alcohol and Drug Abuse Patient Records regulations: The Federal rules restrict any use of the information to criminally investigate or prosecute any alcohol or drug abuse patient.[facility] [place]stownIn the event this information is protected by the Federal Confidentiality of Alcohol and Drug Abuse Patient Records regulations: The Federal rules restrict any use of the information to criminally investigate or prosecute any alcohol or drug abuse patient.[facility] [place]stownIn the event this information is protected by the Federal Confidentiality of Alcohol and Drug Abuse Patient Records regulations: The Federal rules restrict any use of the information to criminally investigate or prosecute any alcohol or drug abuse patient.[facility] [place]stownIn the event this information is protected by the Federal Confidentiality of Alcohol and Drug Abuse Patient Records regulations: The Federal rules restrict any use of the information to criminally investigate or prosecute any alcohol or drug abuse patient.[facility] [place]stownIn the event this information is protected by the Federal Confidentiality of Alcohol and Drug Abuse Patient Records regulations: The Federal rules restrict any use of the information to criminally investigate or prosecute any alcohol or drug abuse patient.[facility] [place]stownIn the event this information is protected by the Federal Confidentiality of Alcohol and Drug Abuse Patient Records regulations: The Federal rules restrict any use of the information to criminally investigate or prosecute any alcohol or drug abuse patient.[facility] [place]stownIn the event this information is protected by the Federal Confidentiality of Alcohol and Drug Abuse Patient Records regulations: The Federal rules restrict any use of the information to criminally investigate or prosecute any alcohol or drug abuse patient.[facility] [place]stownIn the event this information is protected by the Federal Confidentiality of Alcohol and Drug Abuse Patient Records regulations: The Federal rules restrict any use of the information to criminally investigate or prosecute any alcohol or drug abuse patient.[facility] [place]stownIn the event this information is protected by the Federal Confidentiality of Alcohol and Drug Abuse Patient Records regulations: The Federal rules restrict any use of the information to criminally investigate or prosecute any alcohol or drug abuse patient.[facility] [place]stownIn the event this information is protected by the Federal Confidentiality of Alcohol and Drug Abuse Patient Records regulations: The Federal rules restrict any use of the information to criminally investigate or prosecute any alcohol or drug abuse patient.[facility] [place]stownIn the event this information is protected by the Federal Confidentiality of Alcohol and Drug Abuse Patient Records regulations: The Federal rules restrict any use of the information to criminally investigate or prosecute any alcohol or drug abuse patient.[facility] [place]stownIn the event this information is protected by the Federal Confidentiality of Alcohol and Drug Abuse Patient Records regulations: The Federal rules restrict any use of the information to criminally investigate or prosecute any alcohol or drug abuse patient.[facility] [place]stownIn the event this information is protected by the Federal Confidentiality of Alcohol and Drug Abuse Patient Records regulations: The Federal rules restrict any use of the information to criminally investigate or prosecute any alcohol or drug abuse patient.[facility] [place]stownIn the event this information is protected by the Federal Confidentiality of Alcohol and Drug Abuse Patient Records regulations: The Federal rules restrict any use of the information to criminally investigate or prosecute any alcohol or drug abuse patient.[facility] [place]stownIn the event this information is protected by the Federal Confidentiality of Alcohol and Drug Abuse Patient Records regulations: The Federal rules restrict any use of the information to criminally investigate or prosecute any alcohol or drug abuse patient.[facility] [place]stownIn the event this information is protected by the Federal Confidentiality of Alcohol and Drug Abuse Patient Records regulations: The Federal rules restrict any use of the information to criminally investigate or prosecute any alcohol or drug abuse patient.[facility] [place]stownIn the event this information is protected by the Federal Confidentiality of Alcohol and Drug Abuse Patient Records regulations: The Federal rules restrict any use of the information to criminally investigate or prosecute any alcohol or drug abuse patient.[facility] [place]In the event this information is protected by the Federal Confidentiality of Alcohol and Drug Abuse Patient Records regulations: The Federal rules restrict any use of the information to criminally investigate or prosecute any alcohol or drug abuse patient.[facility] [place]stownIn the event this information is protected by the Federal Confidentiality of Alcohol and Drug Abuse Patient Records regulations: The Federal rules restrict any use of the information to criminally investigate or prosecute any alcohol or drug abuse patient.[facility] [place]stownIn the event this information is protected by the Federal Confidentiality of Alcohol and Drug Abuse Patient Records regulations: The Federal rules restrict any use of the information to criminally investigate or prosecute any alcohol or drug abuse patient.[facility] [place]In the event this information is protected by the Federal Confidentiality of Alcohol and Drug Abuse Patient Records regulations: The Federal rules restrict any use of the information to criminally investigate or prosecute any alcohol or drug abuse patient.[facility] [place]stownIn the event this information is protected by the Federal Confidentiality of Alcohol and Drug Abuse Patient Records regulations: The Federal rules restrict any use of the information to criminally investigate or prosecute any alcohol or drug abuse patient.[facility] [place]stownIn the event this information is protected by the Federal Confidentiality of Alcohol and Drug Abuse Patient Records regulations: The Federal rules restrict any use of the information to criminally investigate or prosecute any alcohol or drug abuse patient.[facility] [place]stownIn the event this information is protected by the Federal Confidentiality of Alcohol and Drug Abuse Patient Records regulations: The Federal rules restrict any use of the information to criminally investigate or prosecute any alcohol or drug abuse patient.[facility] [place]stownIn the event this information is protected by the Federal Confidentiality of Alcohol and Drug Abuse Patient Records regulations: The Federal rules restrict any use of the information to criminally investigate or prosecute any alcohol or drug abuse patient.[facility] [place]stownIn the event this information is protected by the Federal Confidentiality of Alcohol and Drug Abuse Patient Records regulations: The Federal rules restrict any use of the information to criminally investigate or prosecute any alcohol or drug abuse patient.[facility] [place] Care Teams (unrecognized sec tion and content) Rust Proofer Relationship Specialty Start Date End Date Pratima Ontiveros CNP [address] [place] [address] PCP - General Family Medicine 12/30/18 Rust Proofer Relationship Specialty Start Date End Date Pratima Ontiveros CNP [address] [place] [phone] PCP - General Family Medicine 12/30/18 Rust Proofer Relationship Specialty Start Date End Date Pratima Ontiveros CNP [address] [place] [phone] (Work) PCP - General Family Medicine 12/30/18 Rust Proofer Relationship Specialty Start Date End Date Pratima Ontiveros CNP [address] [place] [phone] PCP - General Family Medicine 12/30/18 Rust Proofer Relationship Specialty Start Date End Date Pratima Ontiveros CNP [address] [place] [phone] (Work) PCP - General Family Medicine 12/30/18 Rust Proofer Relationship Specialty Start Date End Date Pratima Ontiveros CNP [address] [place] [phone] (Work) PCP - General Family Medicine 12/30/18 Rust Proofer Relationship Specialty Start Date End Date Pratima Ontiveros [address] [place] [phone] PCP - General Nurse Practitioner Family 11/19/22 Rust Proofer Relationship Specialty Start Date End Date Pratima Ontiveros CNP [address] [place] [phone] (Work) PCP - General Family Medicine 12/30/18 Rust Proofer Relationship Specialty Start Date End Date Pratima Ontiveros CNP [address] [place] [phone] PCP - General Family Medicine 12/30/18 Rust Proofer Relationship Specialty Start Date End Date Pratima Ontiveros CNP [address] [place] [address] PCP - General Family Medicine 12/30/18 Rust Proofer Relationship Specialty Start Date End Date Pratima Ontiveros CNP [address] [place] [address] PCP - General Family Medicine 12/30/18 Rust Proofer Relationship Specialty Start Date End Date Pratima Ontiveros CNP [address] [place] [address] PCP - General Family Medicine 12/30/18 Rust Proofer Relationship Specialty Start Date End Date Pratima Ontiveros CNP [address] [place] [address] PCP - General Family Medicine 12/30/18 Rust Proofer Relationship Specialty Start Date End Date Pratima Ontiveros CNP [address] [place] [address] PCP - General Family Medicine 12/30/18 Rust Proofer Relationship Specialty Start Date End Date Pratima Ontiveros CNP [address] [place] [address] PCP - General Family Medicine 12/30/18 Rust Proofer Relationship Specialty Start Date End Date Pratima Ontiveros CNP [address] [place] [address] PCP - General Family Medicine 12/30/18 Rust Proofer Relationship Specialty Start Date End Date Pratima Ontiveros CNP [address] [place] [phone] PCP - General Family Medicine 12/30/18 Rust Proofer Relationship Specialty Start Date End Date Pratima Ontiveros CNP [address] [place] [phone] PCP - General Family Medicine 12/30/18 Rust Proofer Relationship Specialty Start Date End Date Pratima Ontiveros CNP [address] [place] [phone] PCP - General Family Medicine 12/30/18 Rust Proofer Relationship Specialty Start Date End Date Pratima Ontiveros CNP [address] [place] [phone] PCP - General Family Medicine 12/30/18 Rust Proofer Relationship Specialty Start Date End Date Pratima Ontiveros CNP [address] [place] [phone] PCP - General Family Medicine 12/30/18 Rust Proofer Relationship Specialty Start Date End Date Pratima Ontiveros CNP [address] [place] [phone] PCP - General Family Medicine 12/30/18 Rust Proofer Relationship Specialty Start Date End Date Pratima Ontiveros CNP [address] [place] [phone] PCP - General Family Medicine 12/30/18 Rust Proofer Relationship Specialty Start Date End Date Pratima Ontiveros CNP [address] [place] [address] PCP - General Family Medicine 12/30/18 Rust Proofer Relationship Specialty Start Date End Date Pratima Ontiveros CNP [address] [place] [phone] PCP - General Family Medicine 12/30/18 Rust Proofer Relationship Specialty Start Date End Date Pratima Ontiveros CNP [address] [place] [phone] PCP - General Family Medicine 12/30/18 Rust Proofer Relationship Specialty Start Date End Date Pratima Ontiveros CNP [address] [place], [place] [phone] PCP - General Family Medicine 12/30/18 Rust Proofer Relationship Specialty Start Date End Date Pratima Ontiveros CNP [address] [place] [phone] PCP - General Family Medicine 12/30/18 Rust Proofer Relationship Specialty Start Date End Date Pratima Ontiveros APRN.DAVY PCP - General Family Medicine 12/30/18 Rust Proofer Relationship Specialty Start Date End Date Pratima Ontiveros APRN.DAVY PCP - General Family Medicine 12/30/18 Rust Proofer Relationship Specialty Start Date End Date Pratima Ontiveros APRN.CNP PCP - General Family Medicine 12/30/18 Rust Proofer Relationship Specialty Start Date End Date WestonPratima, CALL OR CONTACT CENTRE OPERATOR.[employer]ER PCP - General Family Medicine 12/30/18 Rust Proofer Relationship Specialty Start Date End Date RaoullavellePratima, CALL OR CONTACT CENTRE OPERATOR.[employer]ER PCP - General Family Medicine 12/30/18 Rust Proofer Relationship Specialty Start Date End Date Pratima Ontiveros, CALL OR CONTACT CENTRE OPERATOR.[employer] PCP - General Family Medicine 12/30/18 Rust Proofer Relationship Specialty Start Date End Date Pratima Ontiveros, CALL OR CONTACT CENTRE OPERATOR.[employer]ER PCP - General Family Medicine 12/30/18 Rust Proofer Relationship Specialty Start Date End Date Pratima Ontiveros, CALL OR CONTACT CENTRE OPERATOR.[employer] PCP - General Family Medicine 12/30/18 Rust Proofer Relationship Specialty Start Date End Date Pratima Ontiveros, CALL OR CONTACT CENTRE OPERATOR.[employer] PCP - General Family Medicine 12/30/18 Rust Proofer Relationship Specialty Start Date End Date Pratima Ontiveros, CALL OR CONTACT CENTRE OPERATOR.[employer] PCP - General Family Medicine 12/30/18 Team Status: Active Member Role/Relationship Status Dates Evie Avila TRAVELING FREIGHT AGENT, TRAVELING FREIGHT AGENT-C Primary care physician Acti ve Team Status: Inactive Member Role/Relationship Status Dates Evie Avila TRAVELING FREIGHT AGENT, TRAVELING FREIGHT AGENT-C Primary care physician Acti ve Start: January 18, 2025 End: January 18, 2025 Camelia Herrera CNM Attending physician Active S tart: January 18, 2025 End: January 18, 2025 Camelia Herrera CNM Referring Provider Active St art: January 18, 2025 End: January 18, 2025 Team Status: Inactive Member Role/Relationship Status Dates Evie Avila NP, TRAVELING FREIGHT AGENT-C Primary care physician Julius lara Start: January 27, 2025 End: January 27, 2025 Hoda Hager CNM Attending physician Active Start: January 27, 2025 End: January 27, 2025 Hoda Hager CNM Referring Provider Active Start: January 27, 2025 End: January 27, 2025 Reason for Visit (unrecogniz ed section and content) Reason Comments DUB Reason Comments Shook Splicer Exam Reason Onset Date Comments Refill Request [...] weeks Procedures VIDEO PSYC/PSYL EST Laurie Serra, CALL OR CONTACT CENTRE OPERATOR.[employer] [address] [place] [address] Laurie Serra, CALL OR CONTACT CENTRE OPERATOR.[employer] [address] [place] [address] Referral ID Status Reason Start Date Expiration Date V isits Requested Visits Authorized [id number] Pending Review 12/15/2022 03/15/2023 1 1 Reason Comments Follow Up OCD/FREDO/depression Specialty Diagnoses / Procedures Referred By Pooja mayo Referred To Contact Psychiatry / ADULT PSYCHIATRY Diagnoses follow up 2 months Procedures EST PSYC ADULT Laurie Serra, CALL OR CONTACT CENTRE OPERATOR.[employer] [address] [place] [address] Laurie Serra, CALL OR CONTACT CENTRE OPERATOR.[employer] [address] [place] [address] Referral ID Status Reason Start Date Expiration Date V isits Requested Visits Authorized [id number] Pending Review 01/09/2023 04/09/2023 1 1 Reason Onset Date Comments Refill Request 01/14/2023 Reason Comments Medication Problem Specialty Diagnoses / Procedures Referred By Contac t Referred To Contact Psychiatry / ADULT PSYCHIATRY Diagnoses follow up Procedures VIDEO PSYC/PSYL EST Laurie Serra, CALL OR CONTACT CENTRE OPERATOR.[employer] [address] [place] [address] Laurie Serra, CALL OR CONTACT CENTRE OPERATOR.[employer] [address] [place] [address] Referral ID Status Reason Start Date Expiration Date V isits Requested Visits Authorized [id number] Pending Review 01/22/2023 04/22/2023 1 1 Reason Comments Yearly Exam Reason Onset Date Comments Refill Request 02/15/2023 Reason Comments Discussion Reason Comments Consult Reason Comments Irregular Menstrual Cycle Reason Comments Discussion Trying to conceive Referral ID Status Reason Start Date Expiration Date V isits Requested Visits Authorized [id number] New Request 01/25/2024 04/24/2024 1 1 Reason Comments Well Woman Specialty Diagnoses / Procedures Referred By Contac t Referred To Contact Psychiatry / ADULT PSYCHIATRY Diagnoses follow up Procedures VIDEO PSYC/PSYL EST Laurie Serra, CALL OR CONTACT CENTRE OPERATOR.[employer] [address] [place] [address] Laurie Serra, CALL OR CONTACT CENTRE OPERATOR.[employer]ER [address] [place] [address] Referral ID Status Reason Start Date Expiration Date V isits Requested Visits Authorized [id number] New Request 03/06/2024 06/04/2024 1 1 Reason Onset Date Comments Refill Request 03/11/2024 Reason Comments Vaginal Problem Urinary Problem Reason Comments Results Reason Onset Date Comments Refill Request 05/29/2024 Specialty Diagnoses / Procedures Referred By Contac t Referred To Contact Psychiatry / ADULT PSYCHIATRY Diagnoses Patient Loosing insurance at end of month and request visit Procedures VIDEO PSYC/PSYL EST Lauire Serra, CALL OR CONTACT CENTRE OPERATOR.[employer] [address] [place] [address] Phone: tel: fax: Laurie Serra, CALL OR CONTACT CENTRE OPERATOR.[employer] [address] [place] [address] Phone: tel: fax: Referral ID Status Reason Start Date Expiration Date V isits Requested Visits Authorized [id number] New Request 06/23/2024 09/21/2024 1 1 Reason Comments New OB/ First OB Reason Onset Date Comments Care 08/15/2024 Reason Comments US Specialty Diagnoses / Procedures Referred By Pooja t Referred To Contact [facility] Diagnoses with uncertain dates in first trimester (HCC) care, first in first trimester (HCC) Procedures OBSTETRIC ULTRASOUND WHI US PREG UTERUS AFTER 1ST TRIMEST GESTATION Yasmeen Vera, CALL OR CONTACT CENTRE OPERATOR.WO[employer] BACK LINER [address] [place] [address] Phone: tel: fax: [facility] [address] [place] [address] Referral ID Status Reason Start Date Expiration Date V isits Requested Visits Authorized [id number] Closed Auto-Generate d Referral 07/18/2024 07/18/2025 1 [...] up Procedures EST PSYC ADULT Laurie Serra, CALL OR CONTACT CENTRE OPERATOR.[employer] [address] [place] [address] Phone: tel: fax: Laurie Serra, CALL OR CONTACT CENTRE OPERATOR.[employer] [address] [place] [address] Phone: tel: fax: Referral ID Status Reason Start Date Expiration Date V isits Requested Visits Authorized [id number] New Request 10/28/2024 01/26/2025 1 1 Reason Comments Care Reason Comments Orders Breast pump Reason Onset Date Comments Care 11/26/2024 Reason Onset Date Comments Care 12/10/2024 Care Team (unrecognized sect ion and content) Care Team Personnel Name: PRATIMA ONTIVEROS CALL OR CONTACT CENTRE OPERATOR-[employer] BACK [employer]ER Position: P4 Advanced Emergency Department Member Role: Primary Care Physician Address: Address: [address] [place] [id number] [place] [address] Care Team Related Persons Name: CAMRON LEBRON [...] BE BASED ON THE PRIMARY CLINICAL RECORDS. [facility] provides no warranty or guarantee of the accuracy or completeness of information in this document.
[2025-02-26] MEDS: Lidocaine 1% (20 ml mdv) 20 ML Vial INFILT (03:45)
--- NOTE | 2025-02-26 04:28 | HP.PCM.OB_ITS ---
HPI - General General Date of Admission: 02/25/25 HPI Narrative SMITA NGUYEN, is a 29 F who presents with spontaneous onset of active labor. Patient reports water broke at home for clear fluid around 1999. She arrived to unit 8 cm dilated. Maternal Data Information ENE Calculator Estimated Delivery Date Method Current WG Current Estimate 02/22/25 Manual 40w 4d PFSH PFSH Home Medications Medication Instructions Recorded Last Taken Type aspirin 81 mg chewable tablet 81 mg PO DAILY 01/18/25 02/25/25 20:00 History (Aspirin Childrens) escitalopram oxalate 20 mg tablet 30 mg PO DAILY Menta l 01/18/25 02/25/25 20:00 History (Lexapro) vitamins no.102-iron 90 1 cap PO DAILY Pregna ncy 01/18/25 02/25/25 20:00 History mg-folate 1 mg-dha 200 mg capsule Allergy/AdvReac Type Severity Reaction Status Date / Time azithromycin Allergy Severe Rash Verified 02/25/25 22:11 morphine Allergy Severe Vomiting Verified 02/25/25 22:11 erythromycin base Allergy Intermediate Rash Verified 02/25/25 22:11 Sulfa (Sulfonamide Allergy Intermediate Hives Verified 02/25/25 22:11 Antibiotics) buspirone (From BuSpar) AdvReac Severe Other Verified 02/25/25 22:11 ceftriaxone AdvReac Intermediate Other Verified 02/25/25 22:11 Social History Smoking Status: Never smoker History Elective abortions Hx Para 0 Spontaneous abortions Hx # Term Pregnancies Ectopic pregnancies Hx # Pregnancies Multiple births # of living children NST FHR Rate Baby A Baseline: 140 Variability:: Moderate Accelerations:: 15 x 15 Decelerations:: None NST Reactive:: Yes FHR Category:: Category I Uterine Activity:: TOCO reading every 2-3 minutes ROS Eyes Eyes: Denies blurry vision, change in vision or spots in vision ENT HEENT: Denies dizziness or headache(s) Cardiovascular Cardiovascular: Denies abdominal pain, chest pain or dyspnea Respiratory/Chest Respiratory/Chest: Denies cough, dyspnea, shortness of breath at rest or shortness of breath with exertion Gastrointestinal Gastrointestinal: Denies abdominal pain, diarrhea or vomiting Genitourinary Genitourinary: Denies change in urinary stream, difficulty urinating or dysuria Musculoskeletal Musculoskeletal: Reports none Integumentary Integumentary: Denies rash Neurologic Neurologic: Denies dizziness, headache(s), memory loss or weakness Psychiatric Psychiatric: Reports none Vital Signs Vital Signs Vital Signs: 02/25/25 21:44 02/25/25 21:44 02/25/25 21:44 Temperature Temperature Source Pulse Rate 76 Respiratory Rate Blood Pressure 140/75 H BP Systolic 140 BP Diastolic 75 Pulse Ox 99 02/25/25 21:44 02/25/25 21:44 02/25/25 21:44 Temperature 97.9 F Temperature Source Temporal Pulse Rate Respiratory Rate 18 Blood Pressure BP Systolic BP Diastolic Pulse Ox 02/26/25 02:57 02/26/25 02:57 02/26/25 04:20 Temperature Temperature Source Temporal Pulse Rate 115 H Respiratory Rate Blood Pressure BP Systolic BP Diastolic Pulse Ox 97 02/26/25 04:20 02/26/25 04:20 02/26/25 04:22 Temperature 98.1 F Temperature Source Pulse Rate Respiratory Rate 16 Blood Pressure 136/78 H BP Systolic 136 BP Diastolic 78 Pulse Ox 02/26/25 04:22 02/26/25 04:23 02/26/25 04:23 Temperature Temperature Source Pulse Rate 98 95 Respiratory Rate Blood Pressure BP Systolic BP Diastolic Pulse Ox 100 Weight Weight: 205 lb 11.06 oz Body Mass Index (BMI) 33.2 PRE- weight 170 lb PRE- Body Mass Index 27.3 (BMI) Physical Exam Const alert, oriented x3 and no apparent distress General Appearance: cooperative Orientation / Consciousness: awake Exam Limitations: no limitations HEENT normocephalic Head and Scalp: normal to inspection Eyes General Eye: normal appearance of both eyes Neck full ROM and no lymphadenopathy Lymph Lymphatic: no lymphadenopathy noted Chest inspection of chest normal Resp normal respiratory effort, normal air movement and clear to auscultation bilaterally Effort and Inspection: able to speak in complete sentences and symmetric chest movement Cardio regular rate and regular rhythm GI normal to inspection, nondistended, normoactive bowel sounds Manual OB Exam: presentation cephalic Back/Spine normal ROM Extremity full ROM and no calf tenderness Skin no rashes or lesions noted General Skin Exam: no breakdown Neuro oriented x3 and CN's II-XII intact bilaterally Psych mental status grossly normal and thought process normal Labs Labs Labs: Blood Type O POSITIVE Antibody Screen NEGATIVE Hct, (37-47) 40.1 % Hgb, (12.0-15.0) 13.8 g/dL Syphilis Total Ab, (Nonreactive) Nonreactive Miscellaneous Test Assessment & Plan (1) 40 weeks gestation of : (2) Spontaneous onset of labor: (3) Spontaneous rupture of amniotic membranes: (4) History of anxiety: PLAN: Plan Admit to labor and delivery Routine labs Anticipate Dr. Mccall aware of admission and is collaborating physician
--- NOTE | 2025-02-26 04:32 | EX.PCM.OBVAG ---
Assessment & Plan (1) History of anxiety: (2) Spontaneous rupture of amniotic membranes: (3) Spontaneous onset of labor: (4) 40 weeks gestation of : (5) (spontaneous vaginal delivery): (6) Laceration, obstetrical, second degree: (7) Care and examination of lactating mother: Maternal Data Information ENE Calculator Estimated Delivery Date Method Current WG Current Estimate 02/22/25 Manual 40w 4d Vaginal Delivery Maternal Presentation Maternal Presentation: Active Labor and Spontaneous Rupture of Membranes Maternal Presentation: Spontaneous onset of labor and spontaneous rupture of membranes Vaginal Delivery Information Procedure Performed: Spontaneous Vaginal Delivery Surgeon/Practitioner: Hoda Hager Date of Procedure: 02/26/25 Pre-Procedure Diagnosis: Term gestation, spontaneous onset of labor, spontaneous rupture of membranes Post-Procedure Diagnosis: , Live infant Type of anesthesia: Local with 1% Lidocaine Estimated Blood Loss: 450 Time of Delivery: 03:24 Findings Description of procedure: Patient arrived to unit and was 8 cm dilated. She desired to get into tub. Was called to bedside to labor with patient. Patient progressed to complete dilation. She pushed for close to 3 hours in tub and decision was made to get out and try to reposition in hands and knees on the bed. Meconium fluid noted on pad when in bed. Industrial Real Estate Agent and RT called to bedside for delivery. With good maternal effort, head delivered followed by anterior shoulder and remainder of body without any force, delay, or traction. Nuchal cord x 2 easily reduced. Cord around body x 2 loose as well. Female infant was delivered atraumatically and placed on maternal abdomen. 3 vessel cord was clamped and cut by me and handed off to nursery staff due to color and decreased respiratory effort. Pitocin IM given for active management of the third stage of labor. Placenta delivered spontaneously and intact. A right sided sulcus laceration was identified and Dr. Mccall called to room for repair after local anesthesia given. Second degree laceration repaired in usual fashion using 3-0 Vicryl Rapid. Hemostasis obtained. Vaginal sweep performed. Fundus is firm 2 below U and bleeding is hemostatic. Vaginal packing placed to put pressure to right side of vagina. Sponge and sharps counts correct. Routine post orders placed. Presentation: Vertex Amniotic Membrane Rupture Type: Spontaneous Amniotic Fluid Description: Clear and Moderate meconium (towards delivery) Placental Delivery Description: Spontaneous Placenta Disposition: [facility] Specimen collected: No Cord Vessel Description: 3 Vessels Cord Entanglement: None, Around neck x 2, loose and Other (Around body x 2 ) Nuchal Cord Compression: Without compression Infant A Gender: Female (1 minute): 7 (5 minute): 9 Delayed Cord Clamping: Yes Foot Specialist drainman: No Post Vaginal Deli Medications given after delivery: IM Pitocin Episiotomy Description: None Laceration: Vaginal Extension/lac and 2nd degree Complication Complications: No
--- NOTE | 2025-02-26 08:33 | PCM.PN.BLA ---
Progress Note Patient seen at bedside. Vaginal packing was removed. Patient tolerated well. Continue to monitor
[2025-02-27 03:37] VITALS: BP 120/79; PULSE 80; RESP 16; TEMP 36.4; O2SAT 100
[2025-02-27 07:45] VITALS: BP 128/87; PULSE 80; RESP 16; TEMP 36.6; O2SAT 100
--- NOTE | 2025-02-27 08:55 | PCM.PN.OB ---
Subjective Subjective Doing well. Ambulating and voiding without difficulty. Mild lochia. Breast feeding. Objective Data Objective Data Vital Signs: Vital Signs Temp Pulse Resp BP Pulse Ox O2 Del Method 98 F 80 16 128/87 H 100 Room Air 02/27/25 07:45 02/27/25 07:45 02/27/25 07:45 02/27/25 07:45 02/27/25 07:45 02/27/25 07:45 Oxygen Delivery Method Room Air Weight: 93.3 kg Body Mass Index (BMI) 33.2 Intake & Output: Intake and Output for Last 24 Hours 02/25/25 02/26/25 02/27/25 23:59 23:59 23:59 Intake Total 0.83 / 0.83 0 / 0 Output Total 1050 / 1050 Balance 0.83 / 0.83 -1050 / -1050 Lab / Micro Data 02/25/25 22:09 ROS Constitutional Constitutional: Denies headache(s) Cardiovascular Cardiovascular: Denies chest pain or dyspnea Gastrointestinal Gastrointestinal: Denies nausea or vomiting Genitourinary Genitourinary: Denies dysuria Physical Exam Const alert, oriented x3 and no apparent distress General Appearance: cooperative and comfortable Eyes PERRL and EOMs intact bilaterally Resp normal respiratory effort GI soft to palpation and non-tender Narrative: Fundus firm, below umbilicus. Uterus Palpation: uterus fundus firm ( below umbilicus) Extremity normal to inspection and full ROM Neuro oriented x3 and CN's II-XII intact bilaterally Psych mental status grossly normal Assessment & Plan (1) (spontaneous vaginal delivery): (2) Laceration, obstetrical, second degree: (3) Care and examination of lactating mother: PLAN: Plan Discharge home
--- NOTE | 2025-02-27 08:56 | PCM.DC.SUM ---
Providers Date of Admission: 02/25/25 Date of Discharge: 02/27/25 Primary Care Physician: Dr. Antonietta Kingston, Reason For Visit: R/O ROM Diagnosis Discharge Diagnosis (1) (spontaneous vaginal delivery): Status: Acute Code(s): O80 - Encounter for full-term uncomplicated delivery (2) Laceration, obstetrical, second degree: Status: Acute Code(s): O70.1 - Second degree perineal laceration during delivery (3) Care and examination of lactating mother: Status: Acute Code(s): Z39.1 - Encounter for care and examination of lactating mother Plan Discharge home Medications at Discharge Home Medications escitalopram oxalate 20 mg tablet (Lexapro) 30 mg PO DAILY Mental 01/18/25 vitamins no.102-iron 90 mg-folate 1 mg-dha 200 mg capsule 1 cap PO DAILY 01/18/25 naproxen 500 mg tablet 500 mg PO Q8H PRN PRN Pain Score 1-10 #60 tabs 02/27/25 Hospital Course Operations None Procedures None Summary of Care Provided Minutes Spent on Discharge: 20 Hospital Course: . Sulcus laceration. Breast feeding. Physical Exam Const alert and no apparent distress Narrative: Fundus firm, below umbilicus. Weight / BMI Weight Weight: 93.3 kg Body Mass Index (BMI) 33.2 PRE- weight 77.111 kg PRE- Body Mass Index 27.3 (BMI) ABG / Lab / Microbiology Data 02/25/25 22:09 D/C Instructions May resume sexual activity in: 6 weeks DC O2, CPAP, BIPAP Needs Home O2 Discharge instructions: No Please Follow Up With: Angelika Mccall MD When: Follow up with our office in 1-2 and 6 weeks or as needed. [phone] Meaningful Use Info Meaningful Use Meaningful Use Diagnoses (Choose all that apply): None applicable Discharge Plan Admission Admit Date/Time: 02/25/25 22:05 Primary Reason for Your Visit: labor Attending Provider: Hoda Hager Primary Care Provider: Antonietta Kingston Discharge Orders/Prescriptions Prescriptions: New naproxen 500 mg Tablet 500 mg PO Q8H PRN PRN (Reason: Pain Score 1-10) Qty: 60 0RF Continued escitalopram oxalate [Lexapro] 20 mg tablet 30 mg PO DAILY PNV 793-[id number]-dha 90 mg iron- 1 mg-200 mg capsule 1 cap PO DAILY Discontinued aspirin [Aspirin Childrens] 81 mg tablet,chewable 81 mg PO DAILY Referrals / Follow Up: Antonietta Kingston DO [Primary Care Provider, Family Practice] Disposition Disposition (needs filled in before D/C Order can be placed): Home, Self Care
[2025-02-27 13:07] VITALS: BP 130/81; PULSE 80; RESP 16; TEMP 36.6; O2SAT 99
--- NOTE | 2025-02-27 13:59 | CASEMGMT ---
Social Work Assessment Labor and Delivery Unit Patient Address: [address] [place] [place] [address] Phone number: [phone] Date of Referral: 02/26/25 Time of Referral: 731 Referred By: Hoda Hager Date of Intervention: 02/27/25 Time of Intervention: 1120 Reason for Referral: "hx anxiety/ depression" Danielle completed chart review and acknowledges social work consult. Sw presented to bedside and introduced self to mother of baby, ALYCIA- Yadi and father of baby, JESSICA- Mckinley. Sw completed psychosocial assessment. History obtained from: medical records, MOB and FOB Household composition: Currently residing in the home is MOB, FOB and baby when ready for discharge. Parents deny any housing concerns, stating that it is safe and secure. Patient's parent/guardian status: ALYCIA and JESSICA state that they have been together for 5 years after meeting each other online. No concerns reported of domestic violence or intimate partner violence. baby is first baby for parents together. Medical History: ALYCIA is 29 year old female who is 1, para 0- now 1 following labor and delivery of . ALYCIA received routine care during with [facility]. ALYCIA presented to hospital in active labor and delivered baby via vaginal delivery on 02/26/25 at 40 weeks gestation. Baby girl, named Fernando Romero, was born weighing 7lbs 6oz and had apgars of 7 and 9 at one and five minutes of life, respectfully. ALYCIA states that she is breast feeding and is thankful for the assistance is helping with. Baby will be followed by Dr. Stafford for pediatric. Educational Status: ALYCIA and JESSICA both graduated from high school and obtained college degrees. ALYCIA has a Master's and JESSICA has his Bachelor's degree. No problems with reading, learning or comprehension. Financial Status: Both parents are gainfully employed outside of the home. 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 Infant Supplies: All necessary baby supplies obtained, including: car seat, safe sleep space, clothes, diapers and wipes. Childcare/Caregiver(s): MOB and JESSICA will be the primary caregivers to baby. When both parents are working they have aligned for an in home childcare provider to watch baby Transportation: Both parents have their drivers license and reliable means of transportation, no barriers. Programs/Agencies Involved: Parents are over income for linkage to community resources that provide financial assistance. Children Services/Legal Issues: No history of children services involvement, no issues or concerns warranting referral to be made. Behavioral Health Issues: Mental Health History: JESSICA denies mental health history. ALYCIA states that she has been diagnosed with anxiety and depression. She is prescribed Lexapro and has a prescription of PRN medication in instances where she feels like she needs something in the moment. ALYCIA states that it has been over a year since she has needed PRN medication. ALYCIA is also connected to psychiatry and psychology services to help her manage her mental health. Substance Use History: Parents deny substance use prior to and during . Family History: Parents deny family history of addiction or significant mental health history. Drug Screens: No drug screens observed while completign chart review. Family/Social Stressors: Parents deny any issues, stressors or concerns. Support Systems: ALYCIA states that both sets of grandparents and siblings are their biggest supports. ALYCIA also states that her gym family is really supportive. Depression/Shaken Baby/Safe Sleeping: Danielle educated parents on signs and symptoms of baby blues and mood and anxiety disorders to be mindful of going into this period. 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 ALYCIA states that she started to struggle with her mental health in 2011 when she graduated from high school, and her counselor encouraged her to get tested for it. ALYCIA states that she has put a lot of work into her mental health, and sees a counselor every week or every other week, and meets with her psychiatrist regularly. ALYCIA states that she goes to the gym because being physical makes her body feel really good. ALYCIA reports that during this is the best that she has felt both mentally and physically. ALYCIA states that she is nervous that she is going to go backwards with her mental health during this period, and she doesn't want that to happen. Danielle provided support and encouragement. ALYCIA states that she will continue to meet with her mental health supports, her family and work on being more communicative with FOB. Sw encouraged ALYCIA to explain to FOB how he can help her when he is able to recognize when she is struggling. Parents express understanding. Sw expressed importance of safe sleep inside and outside of the bedroom. Sw educated MOB on always placing baby in bedside bassinet and not sleeping with baby in bed with her. Sw explained that baby's bassinet should be free of any blankets, pillows or stuffed animals. And baby should be sleeping in a onsie and a sleep sack/ swaddle sack for sleep. MOB expressed understanding. Sw discouraged sleeping with baby on a couch or in a reclining chair explaining that sleep accidents also happen in those areas as well. Sw educated MOB on shaken baby prevention. MOB expressed understanding. ASSESSMENT: MOB and baby admitted following labor and delivery. MOB with mental health history of anxiety and depression. MOB is connected to mental health services and prescribed medication to help her manage her mental health symptoms. Parents were open and receptive to meeting with sw. While meeting with parents MOB was laying in bed comfortably holding baby. MOB was observed to look down at baby frequently and smile. MOB tearful from time to time and stated that they tried for a year to get , and she is so blessed that baby is here. FOB was standing above MOB and baby and observed to be supportive and involved throughout duration of conversation. Parents have all necessary baby items and have natural supports in place. PLAN: No other services requested or indicated. MOB and baby to be discharged when medically ready. Parents were provided literature regarding: signs and symptoms of baby blues and mood and anxiety disorders, Help Me Grow, shaken baby prevention, ABCs of safe sleep and a list of county resources that are available for them should any needs present themselves. Keira Abernathy, JOURNEYMAN SHEET METAL WORKER, DIE SINKER
[2025-02-27] MEDS: Senna/Docusate Sodium 1 Tablet PO (15:13)
== END 2025-02-27 16:10 | disposition home or self-care (01) | DRG 807 ==
LOC: WP 02-26 00:26
PROVIDERS: Admitting Provider Advanced Practice Midwife; PCP Student in an Organized Health Care Education/Training Program; Visit Provider Advanced Practice Midwife
DX: O70.1 Second degree perineal laceration during delivery (principal); Z37.0 Single live birth; O69.81X0 Labor and delivery complicated by cord around neck, without compression, not applicable or unspecified; Z79.899 Other long term (current) drug therapy; Z3A.40 40 weeks gestation of pregnancy; Z86.59 Personal history of other mental and behavioral disorders
CPT/HCPCS: 59025; 59050; 84112; 85025; 86780; 86850; 86900; 86901; 99221; G0378